=== PATIENT | female | born 1960 | race Caucasian/White ===

== ENCOUNTER 2021-05-23 17:52 | Emergency (ER) | payer OTHER, SELFPAY ==
[2021-05-23 18:02] VITALS: BP 128/84; PULSE 102; RESP 16; TEMP 36.3; O2SAT 98
[2021-05-23 18:20] VITALS: BP 128/84; PULSE 102; RESP 16; TEMP 36.3; O2SAT 98
--- NOTE | 2021-05-23 18:47 | ED.GENADULT ---
HPI - General Adult General Chief complaint: Skin/Abscess/Foreign Body Stated complaint: rash Time Seen by Provider: 05/23/21 18:35 Source: patient Mode of arrival: ambulatory Limitations: no limitations History of Present Illness HPI narrative: Sultana Vincent is a 61-year-old female who comes to [facility] wanting some kind of help with pain management she can see her PCP substituted 10 days. Her current PCP apparently is Jane is transferring patients to substitute PCP but she has not had the blood work done for diagnosis of rheumatoid arthritis. She needs to find a assistant dean of students that will take her insurance and the projection was it would be as long as September 12 she could get into see a assistant dean of students for further evaluation. She is requesting medicine but it is unclear to me whether or not she has taken this drug at this point and where she is in the work-up Related Data Allergies Allergy/AdvReac Type Severity Reaction Status Date / Time No Known Allergies Allergy Verified 12/19/18 11:04 Review of Systems Review of Systems: CONSTITUTIONAL: Denies fever, chills, sweats. EYES: Denies visual changes, redness, discharge. ENT: Denies rhinorrhea, congestion, sore throat, otalgia. CARDIOVASCULAR: Denies chest pain, palpitations, edema. RESPIRATORY: Denies dyspnea, wheezing, cough GASTROINTESTINAL: Denies abdominal pain, nausea, vomiting, diarrhea. GENITOURINARY: Denies dysuria, hematuria, abnormal discharge SKIN: Denies rash or itching. NEUROLOGIC: Denies numbness, or focal weakness. PSYCHIATRIC: Denies anxiety or depression. Hand and knee pain from rheumatoid arthritis PMFSH Past Medical History Medical History Rheumatoid arthritis Social History Social History (Updated 05/23/21 @ 18:50 by Jessi Valencia CNP) Smoking status: Never smoker Substance use: never Comments At time of signature, I agree with nursing past medical, surgical, social and family history. There is no relevant family history pertinent to the presenting complaint. Exam Narrative: GENERAL: This is a well-nourished, well-developed patient, in mild distress. Anxious, in pain daily from rheumatoid arthritis HEAD: normocephalic, atraumatic. EYES: Sclera clear/white. Vision is grossly intact. EARS: External ears normal, auditory canals clear and without drainage, TMs normal without perforation. Hearing grossly intact. NOSE: External nose normal without nasal discharge, nares without redness, no rhinorrhea. THROAT: Mucous membranes moist, NECK: Neck supple, non-tender CARDIOVASCULAR: Tachycardic rate and rhythm without murmurs, gallops, or rubs. RESPIRATORY: Clear to auscultation. Breath sounds equal bilaterally. No wheezes, rales, or rhonchi. GASTROINTESTINAL: Abdomen soft, SKIN: warm, intact with no suspicious lesions or rash, good texture and turgor. NEURO: awake, alert, and oriented to person, place and time. There were no obvious focal neurologic abnormalities. Steady gait EXTREMITIES: Normal range of motion. BACK: Nontender without deformity Course Course Emergency Course: Patient is here due to pain in joints, requesting medicine for pain -wanted minocycline but she has not seen a assistant dean of students and after looking at prescribing information and the fact that she has an appointment in 10 days get decided to give tramadol instead I will let her primary care physician substitute decided on the minocycline Prescribed tramadol until see his primary in 10 days Vital Signs Vital signs: Vital Signs Temperature 97.4 F L 05/23/21 18:02 Pulse Rate 102 H 05/23/21 18:02 Respiratory Rate 16 05/23/21 18:02 Blood Pressure 128/84 05/23/21 18:02 Pulse Oximetry 98 05/23/21 18:02 Temperature 97.4 F L 05/23/21 18:20 Pulse Rate 102 H 05/23/21 18:20 Respiratory Rate 16 05/23/21 18:20 Blood Pressure 128/84 05/23/21 18:20 Pulse Oximetry 98 05/23/21 18:20 Medi
== END 2021-05-23 19:00 | disposition home or self-care (01) ==
PROVIDERS: Emergency Provider Nurse Practitioner; PCP Family Medicine
DX: M05.741 Rheumatoid arthritis with rheumatoid factor of right hand without organ or systems involvement (principal); M05.742 Rheumatoid arthritis with rheumatoid factor of left hand without organ or systems involvement
CPT/HCPCS: 99213; G0463

== ENCOUNTER 2022-06-03 18:04 | Emergency (ER) | payer OTHER, SELFPAY ==
[2022-06-03 18:14] VITALS: BP 138/85; PULSE 88; RESP 18; TEMP 36.4; O2SAT 99
--- NOTE | 2022-06-03 18:36 | ED.URI ---
HPI - URI/Sore Throat General Chief Complaint: Upper Respiratory Infection Stated Complaint: nasal congestion Time Seen by Provider: 06/03/22 18:26 Source: patient Mode of arrival: ambulatory Limitations: no limitations History of Present Illness HPI Narrative: Patient presents today complaining of nasal congestion throughout the entire summer with frontal and maxillary sinus pressure for the past 10 days and left ear pain x1 week. Denies cough, fever, sore throat, or any additional symptoms she has been using [place], Flonase, Tylenol, naproxen, and a humidifier without much relief. History of rheumatoid arthritis for which she takes methotrexate. Related Data Allergies Allergy/AdvReac Type Severity Reaction Status Date / Time No Known Allergies Allergy Verified 06/03/22 18:08 Review of Systems Review of Systems: CONSTITUTIONAL: Denies body aches, fever, chills, or sweats. EYES: Denies visual changes, redness, or discharge. ENT: Denies rhinorrhea, sore throat+ Congestion, left ear pain, sinus pressure CARDIOVASCULAR: Denies chest pain, palpitations, or edema. RESPIRATORY: Denies cough or dyspnea. GASTROINTESTINAL: Denies abdominal pain, nausea, vomiting, or diarrhea. GENITOURINARY: Denies dysuria or hematuria. SKIN: Denies rash, itching, or wounds. MUSCULOSKELETAL: Denies back pain, joint pain, or myalgia. NEUROLOGIC: Denies headache, numbness, tingling, or weakness. PSYCH: Denies depression or anxiety. PMFSH Past Medical History Medical History Rheumatoid arthritis Social History Social History (Updated 05/23/21 @ 18:50 by Jessi Valencia CNP) Smoking status: Never smoker Substance use: never Comments At time of signature, I have reviewed and agree with nursing past medical, surgical, social and family history unless otherwise noted. Please see nursing chart for further information. There is no relevant family history pertinent to the presenting complaint Exam Narrative: GENERAL: Well-appearing, well-nourished, and in no acute distress. HEAD: Normocephalic, atraumatic. EYES: EOMI. No redness or drainage. Conjunctivae normal. ENT: Mucous membranes pink and moist. Nares congested. Lateral nasal turbinates are erythematous and edematous with purulent discharge. Bilateral frontal and maxillary sinus tenderness. TMs normal bilaterally. Throat normal. Uvula midline. NECK: Normal AROM. Supple. No lymphadenopathy. CHEST: No respiratory distress. Clear to auscultation. HEART: Regular rate and rhythm. No murmur appreciated. Normal peripheral pulses. EXTREMITIES: Normal range of motion. No edema. SKIN: Warm, dry, no rash. Capillary refill normal. Normal skin turgor. NEURO: No focal deficits. Alert and oriented x3. Gait steady. PSYCH: Normal affect. No signs of depression or anxiety. Course Course Level of Care: Express Care Visit Vital Signs Vital signs: Vital Signs Temperature 97.6 F 06/03/22 18:14 Pulse Rate 88 06/03/22 18:14 Respiratory Rate 18 06/03/22 18:14 Blood Pressure 138/85 06/03/22 18:14 Pulse Oximetry 99 06/03/22 18:14 Oxygen Delivery Room Air 06/03/22 18:14 Temperature 97.6 F 06/03/22 18:14 Pulse Rate 88 06/03/22 18:14 Respiratory Rate 18 06/03/22 18:14 Blood Pressure 138/85 06/03/22 18:14 Pulse Oximetry 99 06/03/22 18:14 Oxygen Delivery Room Air 06/03/22 18:14 Reviewed. Pt has been instructed to follow up with her PCP regarding her elevated blood pressure today. MDM - URI/Sore Throat Differential Diagnosis Differential diagnosis: Likely upper respiratory infection, otitis media, sinusitis, viral infection and other (Seasonal allergies) Critical Care Time Critical Care Time Critical Care Time: No Discharge Plan Discharge Clinical Impression: Acute bacterial sinusitis Patient Disposition: Home, Self-Care Condition: Stable Instructions: Antibiotic Form, Sinusiti
== END 2022-06-03 18:38 | disposition home or self-care (01) ==
PROVIDERS: Emergency Provider Nurse Practitioner; PCP Family Medicine
DX: J01.90 Acute sinusitis, unspecified (principal); M06.9 Rheumatoid arthritis, unspecified
CPT/HCPCS: 99213; G0463

== ENCOUNTER 2023-02-17 19:17 | Emergency (ER) | payer OTHER, SELFPAY ==
[2023-02-17 19:26] VITALS: BP 128/69; PULSE 102; RESP 18; TEMP 36.4; O2SAT 100
--- NOTE | 2023-02-17 19:55 | ED.FEMALEGU ---
HPI - Female Genitourinary General Chief complaint: Urogenital-Female Stated complaint: Possible UTI Time Seen by Provider: 02/17/23 19:50 Source: patient, RN notes reviewed and old records reviewed Mode of arrival: ambulatory Limitations: no limitations History of Present Illness HPI Narrative: 62-year-old female who presents to with complaints of 2 day history of urinary symptoms which include urgency, burning with urination and also some pink-tinged urine noted when wiping, and has had some incontinency. Patient reports no fevers, chills or sweats, denies any abdominal pain,nausea or vomiting or any diarrhea. Patient reports no vaginal discharge or itching denies any concern for STD exposure. MD elicited complaint: UTI Onset (ago): day(s) (2) Related Data Home Medications Medication Instructions Recorded Confirmed naproxen 500 mg tablet 500 mg PO BID 02/17/23 02/17/23 Allergies Allergy/AdvReac Type Severity Reaction Status Date / Time No Known Allergies Allergy Verified 02/17/23 19:41 Review of Systems Review of Systems: CONSTITUTIONAL: Denies fever, chills, or sweats. CARDIOVASCULAR: Denies chest pain, palpitations, or edema. RESPIRATORY: Denies cough or dyspnea. GASTROINTESTINAL: Denies abdominal pain, nausea, vomiting, or diarrhea. GENITOURINARY: Reports dysuria, frequency, urgency, incontinency. Denies flank pain, positive hematuria. SKIN: Denies rash or itching. MUSCULOSKELETAL: Denies back pain, positive for myalgia has rheumatoid arthritis. Denies CVA tenderness NEUROLOGIC: Denies headache All systems reviewed & are unremarkable except as noted in HPI and below PMFSH Past Medical History Medical History (Updated 02/19/23 @ 08:23 by Erin Obrien NP) Kidney stones Rheumatoid arthritis Surgical History Surgical History (Updated 02/19/23 @ 08:10 by Erin Obrien NP) H/O tubal ligation History of tonsillectomy Social History Social History (Updated 02/19/23 @ 08:13 by Erin Obrien NP) Smoking status: Former smoker Additional smoking assessment comments: quit 3 years ago Substance use: never Living arrangements: with family Gender identity (if verbalized by the patient): Female Comments At time of signature, agree with nursing past medical, surgical, social and family history. There is no relevant family history pertinent to the presenting complaint Exam Narrative: GENERAL: Well-appearing, well-nourished, and in no acute distress. HEAD: Normocephalic, atraumatic. NECK: Supple. CHEST: Clear to auscultation. No respiratory distress.SAO2 100% on room air HEART: Regular rate and rhythm. No murmur heard. Normal peripheral pulses. ABDOMEN: Soft, nontender, nondistended, normal active bowel sounds. No CVA tenderness,positive for dysuria urgency and episodes of incontinency,noted some blood when wiped. EXTREMITIES: Normal range of motion. No edema. SKIN: Warm, dry, no rash. NEURO: No focal deficits. Alert and oriented x3. Course Course Emergency Course: Patient is aware of diagnosis, understands and agrees to treatment plan.? Anticipatory guidance given.? Patient agrees to follow-up as directed and is aware of reasons to seek care at the emergency department. Portions of this record may have been created with voice recognition software Level of Care: Express Care Visit Vital Signs Vital signs: Vital Signs Oxygen Delivery Room Air 02/17/23 19:25 Temperature 36.4 C L 02/17/23 19:26 Pulse Rate 102 H 02/17/23 19:26 Respiratory Rate 18 02/17/23 19:26 Blood Pressure 128/69 02/17/23 19:26 Pulse Oximetry 100 02/17/23 19:26 Oxygen Delivery Room Air 02/17/23 19:26 MDM - Female Genitourinary MDM Narrative Medical decision making narrative: Exam findings and UA show no acute concerns or changes; patient is non-toxic appearing and is in no distress.? Patient is appropriate for outpatient treatment and follow-up. Differential Diag
== END 2023-02-17 20:15 | disposition home or self-care (01) ==
PROVIDERS: Emergency Provider Registered Nurse
DX: N39.0 Urinary tract infection, site not specified (principal); Z87.891 Personal history of nicotine dependence; M06.9 Rheumatoid arthritis, unspecified
CPT/HCPCS: 81003; 87086; 99213; G0463

== ENCOUNTER 2023-03-04 14:28 | Emergency (ER) | payer OTHER, SELFPAY ==
[2023-03-04 14:38] VITALS: BP 130/68; PULSE 80; RESP 16; TEMP 36.3; O2SAT 100
--- NOTE | 2023-03-04 14:58 | ED.FEMALEGU ---
HPI - Female Genitourinary General Chief complaint: Urogenital-Female Stated complaint: possible uti Time Seen by Provider: 03/04/23 14:49 Source: patient and RN notes reviewed Mode of arrival: ambulatory Limitations: no limitations History of Present Illness HPI Narrative: Patient presents today with a one-week history of urinary urgency, ?warm? feeling with voiding, and yellow vaginal discharge. She was seen on 02/17/2023 for same symptoms and placed on a prescription for Macrobid. Her subsequent urine culture came back negative, weight but patient states she continues to have symptoms. She has not tried any additional medications for her symptoms. Denies abdominal pain, back pain, fever, nausea vomiting, hematuria. States she is not currently sexually active. Related Data Home Medications Medication Instructions Recorded Confirmed naproxen 500 mg tablet 500 mg PO BID 02/17/23 03/04/23 Allergies Allergy/AdvReac Type Severity Reaction Status Date / Time No Known Allergies Allergy Verified 03/04/23 14:44 Review of Systems Review of Systems: CONSTITUTIONAL: Denies body aches, fever, chills, or sweats. EYES: Denies visual changes, redness, or discharge. ENT: Denies rhinorrhea, congestion, sore throat, or otalgia. CARDIOVASCULAR: Denies chest pain, palpitations, or edema. RESPIRATORY: Denies cough or dyspnea. GASTROINTESTINAL: Denies abdominal pain, nausea, vomiting, or diarrhea. GENITOURINARY: Denies dysuria or hematuria.+ urgency, vaginal discharge SKIN: Denies rash, itching, or wounds. MUSCULOSKELETAL: Denies back pain, joint pain, or myalgia. NEUROLOGIC: Denies headache, numbness, tingling, or weakness. PSYCH: Denies depression or anxiety. [facility] Past Medical History Medical History Kidney stones Rheumatoid arthritis Surgical History Surgical History H/O tubal ligation History of tonsillectomy Social History Social History Smoking status: Former smoker Additional smoking assessment comments: quit 3 years ago Substance use: never Living arrangements: with family Gender identity (if verbalized by the patient): Female Comments At time of signature, I have reviewed and agree with nursing past medical, surgical, social and family history unless otherwise noted. Please see nursing chart for further information. There is no relevant family history pertinent to the presenting complaint Exam Narrative: GENERAL: Well-appearing, well-nourished, and in no acute distress. HEAD: Normocephalic, atraumatic. EYES: EOMI. No redness or drainage. Conjunctivae normal. ENT: Mucous membranes pink and moist. NECK: Normal AROM. CHEST: No respiratory distress. : deferred MUSCULOSKELETAL: No bony tenderness. EXTREMITIES: Normal range of motion. No edema. SKIN: Warm, dry, no rash. Capillary refill normal. Normal skin turgor. NEURO: No focal deficits. Alert and oriented x3. Gait steady. PSYCH: Normal affect. No signs of depression or anxiety. Course Course Level of Care: Express Care Visit Vital Signs Vital signs: Vital Signs Temperature 97.4 F L 03/04/23 14:38 Pulse Rate 80 03/04/23 14:38 Respiratory Rate 16 03/04/23 14:38 Blood Pressure 130/68 03/04/23 14:38 Pulse Oximetry 100 03/04/23 14:38 Oxygen Delivery Room Air 03/04/23 14:38 Temperature 97.4 F L 03/04/23 14:38 Pulse Rate 80 03/04/23 14:38 Respiratory Rate 16 03/04/23 14:38 Blood Pressure 130/68 03/04/23 14:38 Pulse Oximetry 100 03/04/23 14:38 Oxygen Delivery Room Air 03/04/23 14:38 Reviewed. Pt has been instructed to follow up with her PCP regarding her elevated blood pressure today. MDM - Female Genitourinary MDM Narrative Medical decision making narrative: UA grossly negative. Culture pendin
== END 2023-03-04 15:09 | disposition home or self-care (01) ==
PROVIDERS: Emergency Provider Nurse Practitioner
DX: N89.8 Other specified noninflammatory disorders of vagina (principal); M06.9 Rheumatoid arthritis, unspecified; Z87.891 Personal history of nicotine dependence
CPT/HCPCS: 81003; 87086; 87088; 99213; G0463

== ENCOUNTER 2023-10-11 15:25 | Emergency (ER) | payer MEDICARE, MEDICAID, SELFPAY ==
[2023-10-11 16:23] VITALS: BP 134/81; PULSE 77; RESP 18; TEMP 36.4; O2SAT 99
--- NOTE | 2023-10-11 16:56 | ED.FEMALEGU ---
HPI - Female Genitourinary General Chief complaint: Urogenital-Female Stated complaint: uti symptoms Time Seen by Provider: 10/11/23 16:56 Source: patient, RN notes reviewed and old records reviewed Mode of arrival: ambulatory Limitations: no limitations History of Present Illness HPI Narrative: 63-year-old female with a history of RA presents with urinary frequency, urgency, burning, hesitancy, retention. Also reports different low back pain than her normal arthritis Has taken azo been drinking cranberry juice with no relief Symptoms x3 days Denies any nausea or vomiting. Denies any abdominal pain or chest pain. Denies fevers Related Data Home Medications Medication Instructions Recorded Confirmed naproxen 500 mg tablet 500 mg PO BID 02/17/23 10/11/23 Allergies Allergy/AdvReac Type Severity Reaction Status Date / Time No Known Allergies Allergy Verified 10/11/23 16:39 Review of Systems Review of Systems: All systems reviewed & are unremarkable except as noted in HPI and below Constitutional: Constitutional: Reports no additional constitutional complaints Eyes: Eyes: Reports no additional eye complaints ENT: Reports system reviewed and no additional complaints, except as documented Cardiovascular: Cardiovascular: Reports no additional cardiovascular complaints, Denies chest pain and Denies dyspnea Respiratory: Respiratory: Reports no additional respiratory complaints, Denies chest congestion, Denies cough and Denies dyspnea Gastrointestinal: Gastrointestinal: Reports no additional gastrointestinal complaints, Denies abdominal pain, Denies nausea and Denies vomiting Genitourinary: Genitourinary: Reports as per HPI Musculoskeletal: Musculoskeletal: Reports no additional musculoskeletal complaints Integumentary/Breasts: Skin/Breast: Reports system reviewed and no additional complaints, except as docu Neurologic: Reports system reviewed and no additional complaints, except as documented Psychiatric: Psychiatric: Reports no additional psychiatric complaints Allergic/Immunologic: Allergic/Immunologic: Reports no additional allergic/immunologic complaints [facility] Past Medical History Medical History Kidney stones Rheumatoid arthritis Surgical History Surgical History H/O tubal ligation History of tonsillectomy Social History Social History Smoking status: Former smoker Additional smoking assessment comments: quit 3 years ago Substance use: never Living arrangements: with family Gender identity (if verbalized by the patient): Female Comments At the time of my signature, I reviewed and agree with the nursing past medical, surgical, social, and family history. There is no relevant family history pertinent to the patient complaint. Exam Const: General: cooperative, healthy appearing, comfortable, no acute distress, well developed, alert and well nourished Nutritional Appearance: well nourished Orientation/consciousness: patient oriented x3 Limitations: no limitations HENMT: Head: normal to inspection Ears: hearing grossly normal bilaterally and external ears normal Face/Nose/Sinus: Normal external nose present, Normal nares present, Normal nasal mucous membranes and turbinates present, normal facial exam and face symmetric Face and sinus: normal facial exam and face symmetric Eyes: General: appearance normal, both eyes and all related structures Alignment and Position: alignment normal Periorbital: periorbital findings normal Pupils: Equal, round and reactive pupils present EOM: EOMs intact bilaterally Neck: Neck: normal visual inspection, full ROM, no lymphadenopathy and no meningeal signs Chest: Chest palpation & inspection: normal inspection of the chest Resp: Effort & Inspection: normal respiratory effort and able to spe
== END 2023-10-11 17:06 | disposition home or self-care (01) ==
PROVIDERS: Emergency Provider Nurse Practitioner
DX: N39.0 Urinary tract infection, site not specified (principal); Z79.1 Long term (current) use of non-steroidal anti-inflammatories (NSAID); Z87.891 Personal history of nicotine dependence
CPT/HCPCS: 81003; 87086; 87088; 99213; G0463

== ENCOUNTER 2024-05-30 12:29 | Emergency (ER) | payer MEDICARE, SELFPAY ==
--- NOTE | 2024-05-30 12:31 | ED.FEMALEGU ---
HPI - Female Genitourinary General Chief complaint: Urogenital-Female Stated complaint: uti symptoms Time Seen by Provider: 05/30/24 12:31 Source: patient Mode of arrival: ambulatory Limitations: no limitations History of Present Illness HPI Narrative: Sultana is a 64-year-old female patient presenting to the clinic today with complaints of possible UTI. She reports she is having burning, urinary frequency, low urine output, and malodorous urine. States that this has been going on for the past 2-3 days. No known fever, chills, body aches, back pain, or lower abdominal pain. She denies any vaginal discharge. Related Data Home Medications Medication Instructions Recorded Confirmed naproxen 500 mg tablet 500 mg PO BID 02/17/23 05/30/24 Allergies Allergy/AdvReac Type Severity Reaction Status Date / Time No Known Allergies Allergy Verified 05/30/24 12:46 Review of Systems Review of Systems: Pertinent positives per HPI. Patient denies any fever, chills, rash, headache, visual changes, dizziness, cough, runny nose, sore throat, shortness of breath, chest pain, palpitations, nausea, vomiting, diarrhea, constipation, abdominal pain, or any urinary issues. PMFSH Past Medical History Medical History Kidney stones Rheumatoid arthritis Surgical History Surgical History H/O tubal ligation History of tonsillectomy Social History Social History Smoking status: Former smoker Additional smoking assessment comments: quit 3 years ago Substance use: never Living arrangements: with family Gender identity (if verbalized by the patient): Female Comments At the time of my signature, I reviewed and agree with the nursing past medical, surgical, social, and family history. There is no relevant family history pertinent to the patient complaint. Exam Narrative: General: Well-developed, well nourished, in no apparent distress. Head: Normocephalic, atraumatic. Cardio: Regular rate and rhythm, s1 and s2 normal, no murmur appreciated. Resp: Clear to auscultation bilaterally, no rhonchi, rales, wheezing or rubs. Abdomen: Soft, pliable, bowel sounds present in all quadrants, non-tender to palpation, no organomegly, no CVAT tenderness. Course Course Emergency Course: Portions of this record may have been created with voice recognition software. Level of Care: Express Care Visit Vital Signs Vital signs: Vital Signs Temperature 36.1 C L 05/30/24 12:42 Pulse Rate 80 05/30/24 12:42 Respiratory Rate 16 05/30/24 12:42 Blood Pressure 138/80 05/30/24 12:42 Pulse Oximetry 99 05/30/24 12:42 Oxygen Delivery Room Air 05/30/24 12:42 Temperature 36.1 C L 05/30/24 12:42 Pulse Rate 80 05/30/24 12:42 Respiratory Rate 16 05/30/24 12:42 Blood Pressure 138/80 05/30/24 12:42 Pulse Oximetry 99 05/30/24 12:42 Oxygen Delivery Room Air 05/30/24 12:42 Vital signs reviewed MDM - Female Genitourinary MDM Narrative Medical decision making narrative: At the time of visit patient is resting comfortably on the exam table. Patient appears to be nontoxic. Labs: UA positive for trace of leukocytes. We will send for culture. Plan: I reviewed patient's old urine cultures and they have all been no growth. I suspect that the trace of leukocytes may be a contaminant but I will go ahead and place patient on Macrobid and time being and wait for urine culture. Supportive measures were discussed with the patient and they voiced understanding discharge instructions and agrees to treatment plan. Return precautions reviewed Differential Diagnosis Differential diagnosis: Likely urinary tract infection and cystitis Lab Data Labs: Lab Results 05/30/24 Range/Units 12:48 POC Urine Color Yellow POC Urine Clarity
[2024-05-30 12:42] VITALS: BP 138/80; PULSE 80; RESP 16; TEMP 36.1; O2SAT 99
[2024-05-30 12:51] LABS: EDUAAPPEAR Clear; EDUABILI Negative; EDUABLOOD Negative; EDUACOLOR1 Yellow; EDUAGLUCOSE Negative; EDUAKETONE Negative; EDUALEUKO Trace; EDUANITRATE Negative; EDUAPROTEIN Negative; EDUAUROBILI 0.2
== END 2024-05-30 13:00 | disposition home or self-care (01) ==
PROVIDERS: Emergency Provider Nurse Practitioner Family
DX: N30.00 Acute cystitis without hematuria (principal); Z87.891 Personal history of nicotine dependence; M06.9 Rheumatoid arthritis, unspecified
CPT/HCPCS: 81003; 87086; 99213; G0463

== ENCOUNTER 2024-10-09 10:16 | Emergency (ER) | payer MEDICARE, SELFPAY ==
[2024-10-09 10:27] VITALS: BP 138/81; PULSE 97; RESP 18; TEMP 36.3; O2SAT 96
--- NOTE | 2024-10-09 10:40 | ED_ITS ---
HPI - URI/Sore Throat General Chief Complaint: Upper Respiratory Infection Stated Complaint: headache and sinus drainage Time Seen by Provider: 10/09/24 10:40 Source: patient, RN notes reviewed and old records reviewed Mode of arrival: ambulatory Limitations: no limitations History of Present Illness HPI Narrative: 64-year-old female presents to the [facility] with complaints of headache and sinus drainage that started about 10 days ago. Patient states that it started as a headache, proceeded to nasal congestion, postnasal drainage and a cough. Has been using a vaporizer. No other treatment prior to arrival. Onset (ago): day(s) () Related Data Home Medications ?Medication ?Instructions ?Recorded ?Confirmed ?Last Taken ?Type naproxen 500 mg tablet 500 mg PO BID 02/17/23 10/09/24 Unknown History Allergies Allergy/AdvReac Type Severity Reaction Status Date / Time No Known Allergies Allergy Verified 10/09/24 10:49 Review of Systems Review of Systems: All systems reviewed & are unremarkable except as noted in HPI and below Constitutional: Constitutional: Reports no additional constitutional complaints ENT: Reports as per HPI, Reports nasal discharge, Reports post nasal drip and Reports sinus pressure Cardiovascular: Cardiovascular: Reports no additional cardiovascular complaints, Denies chest pain and Denies dyspnea Respiratory: Respiratory: Reports as per HPI, Denies chest congestion, Reports cough and Denies dyspnea Musculoskeletal: Musculoskeletal: Reports no additional musculoskeletal complaints Integumentary/Breasts: Skin/Breast: Reports system reviewed and no additional complaints, except as docu PMFSH Past Medical History Medical History Kidney stones Rheumatoid arthritis Surgical History Surgical History History of tonsillectomy H/O tubal ligation Social History Social History Smoking status: Former smoker Additional smoking assessment comments: quit 3 years ago Substance use: never Living arrangements: with family Gender identity (if verbalized by the patient): Female Comments At the time of my signature, I reviewed and agree with the nursing past medical, surgical, social, and family history. There is no relevant family history pertinent to the patient complaint. Exam Const: General: cooperative, healthy appearing, comfortable, no acute distress, well developed, alert and well nourished Nutritional Appearance: well nourished Orientation/consciousness: patient oriented x3 Limitations: no limitations HENMT: Head: normal to inspection Ears: hearing grossly normal bilaterally, external ears normal, TM's normal bilaterally, EAC's normal, mastoids normal and no periauricular adenopathy Face/Nose/Sinus: Normal external nose present, Normal nasal mucous membranes and turbinates present and Nasal discharge present clear bilateral Mouth: Yes Normal oral and palatal mucosa present, Yes lip normal, Yes tongue normal and Yes moist mucous membranes Throat: posterior oropharynx normal, uvula midline, postnasal drainage, tonsils absent and no uvular edema Eyes: General: appearance normal, both eyes and all related structures Alignment and Position: alignment normal Neck: Neck: normal visual inspection, full ROM, no lymphadenopathy and no meningeal signs Chest: Chest palpation & inspection: normal inspection of the chest Resp: Effort & Inspection: normal respiratory effort and able to speak in complete sentences Auscultation: clear to auscultation bilaterally, no crackles, no rales, no rhonchi and no wheezes Cardio: Rate: regular rate Skin: General skin exam: normal color and no rashes or lesions noted Neuro: General: patient oriented x3, gait normal, moves all extremities and no meningeal signs Cognition (Neuro): normal cognition Speech: normal speech Gait exam (Neuro): Normal gait present Extrem: General: normal to inspection, full ROM, capillary refill normal and normal gait Psych: Appearance: grossly normal and well kempt Mental Status: mental status grossly normal Speech and movement: Normal speech and movement present and Clear speech present Affect: normal affect Attitude: cooperative Course Course Level of Care: Express Care Visit Vital Signs Vital signs: Vital Signs Temperature 97.3 F L 10/09/24 10:27 Pulse Rate 97 10/09/24 10:27 Respiratory Rate 18 10/09/24 10:27 Blood Pressure 138/81 10/09/24 10:27 Pulse Oximetry 96 10/09/24 10:27 Oxygen Delivery Room Air 10/09/24 10:27 Temperature 97.3 F L 10/09/24 10:27 Pulse Rate 97 10/09/24 10:27 Respiratory Rate 18 10/09/24 10:27 Blood Pressure 138/81 10/09/24 10:27 Pulse Oximetry 96 10/09/24 10:27 Oxygen Delivery Room Air 10/09/24 10:27 Reviewed MDM - URI/Sore Throat MDM Narrative Medical decision making narrative: Patient sitting comfortably in exam room. Nontoxic, vitals stable patient presents with approximately a 10 day history of sinus pain, pressure, headache and a cough. Patient due to length of symptoms will treat with antibiotic, discussed with patient that this is most likely viral, also discussed and strongly encouraged [id number] products which she verbalized understanding. Discharge instructions reviewed with patient, as well as provided in writing per nursing staff. The instructions also include specific and strict return/GO TO THE ER as well as f/u information. All questions have been answered, and the patient deny any further questions with discharge and discharge plan. Some parts of this dictation were generated by voice recognition software and may contain typographical and/or grammatical inaccuracies. Differential Diagnosis Differential diagnosis: Likely upper respiratory infection, otitis media, sinusitis and viral infection Critical Care Time Critical Care Time Critical Care Time: No Discharge Plan Discharge Clinical Impression: PND (post-nasal drip) Sinusitis Qualifiers: Sinusitis location: unspecified location Chronicity: acute Recurrence: not specified as recurrent Qualified Code(s): J01.90 - Acute sinusitis, unspecified Patient Disposition: Home, Self-Care Condition: Stable Instructions: Antibiotic Form, Sinusitis (ED), Postnasal Drip (DC) Additional Instructions: Due to the length of you are being treated with an antibiotic. This is most likely a viral illness, Typically viral infections last 7-10 days, can linger for couple of weeks. It is very important to treat your symptoms. Drink plenty of water, Gatorade, Pedialyte, ice pops or Jell-O. -Alternate Tylenol and Motrin per package directions for fever or pain. You can alternate every 4 hours -Antihistamine medication such as Zyrtec/Claritin/Kimmy during the day can help improve symptoms. -doing daily nasal irrigations can help relieve pressure your sinuses. Things like a Neti pot -Use Flonase twice a day for 5 days then daily to help reduce the inflammation and dry up your sinuses. -You can also use Mucinex. Be sure to drink plenty of water with this medication at least 8 ounces with every dose and it is important to drink 8 to 10 glasses of water per day. Water is a natural decongestant -Eat and drink things that are easy to swallow, like tea or soup, or popsicles. -Oral rinses such as: Salt water gargles and/or may use topical anesthetic (eg. Chloraseptic spray) or lozenges to relieve dryness or throat pain). -Frequent hand washing or hand trimmer machine is one of the best ways to prevent spread of infection. -Using a vaporizer or humidifier at night will also help thin secretions and help with coughing up phlegm. -Follow up with primary care provider in 7-10 days if condition is not improving - For new or worsening symptoms go directly to the nearest ER Patient Language: Togolese Prescriptions: New doxycycline monohydrate 100 mg tablet 100 mg PO BID Qty: 14 0RF No Action naproxen 500 mg tablet 500 mg PO BID nitrofurantoin monohyd/m-cryst [Macrobid] 100 mg capsule 100 mg PO Q12H 5 Days Qty: 10 0RF Rx Instructions: must administer with a meal/food Follow-up/Referrals: PHYSICIAN,LATHE OPERATOR CONTACT LENS [Primary Care Provider] - Time of Disposition: 10:52
--- OUTSIDE RECORDS SUMMARY | 2024-10-16 22:29 | XMS_ITS | Encounter Summary ---
Author Organization [facility] Address [address] [place] [address] Care Team Providers Care Business Support Specialist Name Role Phone Sultana Sullivan MD Primary Care Provider [phone] Reason for Visit * Oncology Prior Authorization (Routine) - Authorized Specialty Diagnoses / Procedures Referred By Contac t Referred To Contact Diagnoses Rheumatoid arthritis involving multiple sites with positive rheumatoid factor (HCC) Antonio Bowles MD [address] [facility] [address] [facility] [address] [place] [id number] Referral ID Status Reason Start Date Expiration Date V isits Requested Visits Authorized [id number] Authorized 07/19/2024 07/19/2025 1 1 Encounter Details Date Type Department Care Team (Latest Contact Info) Description 07/30/2024 9:00 AM CDT - 07/30/2024 11:59 PM CDT Hospital Encounter [facility] [address] [place] [phone] Sultana Sullivan MD [address] [place] [phone] Discharge Disposition: Home or Self Care Social History Tobacco Use Types Packs/Day Years Used Date Smoking Tobacco: Former Cigarettes 0.5 20 0 03/10/2001 - 03/10/2021 Smokeless Tobacco: Never Alcohol Use Standard Drinks/Week Comments Never 0 (1 standard drink = 0.6 oz pur e alcohol) PHQ-2 Answer Date Recorded Patient Health Questionnaire-2 Score 0 01/18/2024 Sex and Gender Information Value Date Recorded Sex Assigned at Not on file Gender Identity Not on file Sexual Orientation Not on file documented as of this encounter Last Filed Vital Signs Vital Sign Reading Time Taken Comments Blood Pressure 150/88 07/30/2024 9:14 AM CDT Pulse 88 07/30/2024 9:14 AM CDT Temperature 36.3 ??C (97.4 ??F) 07/30/2024 9:14 AM CD T Respiratory Rate 20 07/30/2024 9:14 AM CDT Oxygen Saturation 99% 07/30/2024 9:14 AM CDT Inhaled Oxygen Concentration - - Weight 58.9 kg (129 lb 12.8 oz) 07/30/2024 9:14 AM CDT Height - - Body Mass Index 25.35 06/20/2024 11:00 AM CDT documented in this encounter Medications at Time of Discharge Medication Sig Dispensed Refills Start Date End Date naproxen (Naprosyn) 500 MG tabletIndications:Rheumat oid arthritis, involving unspecified site, unspecified whether rheumatoid factor present (HCC) Take 1 (one) tablet by mouth 2 times daily 180 tablet 07/06/2024 documented as of this encounter Plan of Treatment Upcoming Encounters Date Type Department Care Team (Late st Contact Info) Description 10/31/2024 10:00 AM 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 Office Visit [facility] - Rheumatology [address] [place] [address] [place] [phone] Antonio Bowles MD [address] [place] [address] [place] [phone] 02/01/2025 9:00 AM CDT Appointment [facility] [address] [place] [phone] Sultana Sullivan MD [address] [place] [phone] documented as of this encounter Procedures Procedure Name Priority Date/Time Associated Diagnosis Comments C-REACTIVE PROTEIN Routine 07/30/2024 9: 30 AM CDT Rheumatoid arthritis, involving unspecified site, unspecified whether rheumatoid factor present (HCC) 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 Long-term use 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 termite exterminator 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 Arthralgia, unspecified joint High risk medications (not anticoagulants) long-term use ERYTHROCYTE SEDIMENTATION RATE Routine 07/30/2024 9:30 AM CDT Rheumatoid arthritis, involving unspecified site, unspecified whether rheumatoid factor present (HCC) 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 Long-term use 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 termite exterminator 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 Arthralgia, unspecified joint High risk medications (not anticoagulants) long-term use CBC W AUTO DIFFERENTIAL Routine 07/30/2024 9:30 AM CDT Rheumatoid arthritis, involving unspecified site, unspecified whether rheumatoid factor present (HCC) 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 Long-term use 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 termite exterminator 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 Arthralgia, unspecified joint High risk medications (not anticoagulants) long-term use COMPREHENSIVE METABOLIC PANEL Routine 07/30/2024 9:30 AM CDT Rheumatoid arthritis, involving unspecified site, unspecified whether rheumatoid factor present (HCC) 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 Long-term use 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 termite exterminator 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 Arthralgia, unspecified joint High risk medications (not anticoagulants) long-term use IGM BLOOD Routine 07/30/2024 9:30 AM CDT Rheumatoid arthritis, involving unspecified site, unspecified whether rheumatoid factor present (HCC) 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 Long-term use 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 half-way 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 Arthralgia, unspecified joint High risk medications (not anticoagulants) long-term use IGG BLOOD Routine 07/30/2024 9:30 AM CDT Rheumatoid arthritis, involving unspecified site, unspecified whether rheumatoid factor present (HCC) 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 Long-term use 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 half-way 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 Arthralgia, unspecified joint High risk medications (not anticoagulants) long-term use IGA BLOOD Routine 07/30/2024 9:30 AM CDT Rheumatoid arthritis, involving unspecified site, unspecified whether rheumatoid factor present (HCC) 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 Long-term use 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 half-way 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 Arthralgia, unspecified joint High risk medications (not anticoagulants) long-term use documented in this encounter Results * (ABNORMAL) IGM BLOOD (07/30/2024 9:30 AM CDT) IgM 35(L) 37 - 286 mg/dL 07/30/2024 11:26 AM CDT [facility] Blood BLOOD SPECIMEN / Unknown Venipuncture / Unknown 07/30/2024 9:30 AM CDT 07/30/2024 10:32 AM CDT Catherine Hoffman MD LAB - CHEMISTR Y ORDERABLES [address] [address], [facility] [phone] * IGG BLOOD (07/30/2024 9:30 AM CDT) IgG 1,182 767 - 1,590 mg/dL 07/30/2024 11:26 AM CDT [facility] Blood BLOOD SPECIMEN / Unknown Venipuncture / Unknown 07/30/2024 9:30 AM CDT 07/30/2024 10:32 AM CDT Catherine Hoffman MD LAB - CHEMISTR Y ORDERABLES [address] [address], [facility] [phone] * IGA BLOOD (07/30/2024 9:30 AM CDT) IgA 250 61 - 356 mg/dL 07/30/2024 11:26 AM CDT [facility] Blood BLOOD SPECIMEN / Unknown Venipuncture / Unknown 07/30/2024 9:30 AM CDT 07/30/2024 10:32 AM CDT Catherine Hoffman MD LAB - CHEMISTR Y ORDERABLES Performing Organization Address City/[facility]/ZIP Co de Phone Number [address] [address], [facility] [phone] * (ABNORMAL) ERYTHROCYTE SEDIMENTATION RATE (07/30/2024 9:30 AM CDT) Erythrocyte Sedimentation Rate Westergren 48(H) 0 - 30 MM/HR 07/30/2024 10:17 AM CDT [facility] Blood BLOOD SPECIMEN / Unknown Venipuncture / Unknown 07/30/2024 9:30 AM CDT 07/30/2024 9:55 AM CDT Catherine Hoffman MD LAB - HEMATOLO GY ORDERABLES Performing Organization Address [facility]/ZIP Co de Phone Number [address] [address], [facility] [phone] * C-REACTIVE PROTEIN (07/30/2024 9:30 AM CDT) [facility] C-Reactive Protein <0.5 <=0.5 mg/dL 07/30/2024 10:28 AM CDT [facility] Blood BLOOD SPECIMEN / Unknown Venipuncture / Unknown 07/30/2024 9:30 AM CDT 07/30/2024 9:55 AM CDT Catherine Hoffman MD LAB - CHEMISTR Y ORDERABLES Performing Organization Address City/[facility]/ZIP Co de Phone Number [address] [address], [facility] [phone] * (ABNORMAL) COMPREHENSIVE METABOLIC PANEL (07/30/2024 9:30 AM CDT) BUN 15 7 - 26 mg/dL 07/30/2024 10:42 AM CDT [facility] Creatinine 0.75 0.56 - 0.96 mg/dL 07/30/2024 10:42 AM CDT [facility] Sodium 140 136 - 145 mmol/L 07/30[facility]24 [facility] Potassium 4.1 3.5 - 4.5 mmol/L 07/30/2024 10:42 AM [facility] Chloride 107 98 - 107 mmol/L 07/30/2024 10:42 AM [facility] CO2 24 22 - 29 mmol/L 07/30/2024 10:42 AM [facility] Glucose 90 70 - 115 mg/dL 07/30/2024 10:42 AM [facility] Calcium 9.4 8.4 - 10.2 mg/dL 07/30/2024 10:42 AM [facility] Protein Total 7.5 6.0 - 8.3 g/dL 07/30/2024 10:42 AM [facility] Albumin 4.0 3.4 - 5.0 g/dL 07/30/2024 10:42 AM [facility] Bilirubin Total 0.4 0.2 - 1.2 mg/dL 07/30/2024 10:42 AM [facility] Alkaline Phosphatase 97 40 - 150 U/L 07/30/2024 10:42 AM [facility] ALT 15 5 - 55 U/L 07/30/2024 10:42 AM [facility] AST 20 5 - 34 U/L 07/30/2024 10:42 AM [facility] Anion Gap 9 6 - 16 07/30/2024 10:42 AM [facility] BUN/Creatinine Ratio 20 7 - 23 07/30/2024 10:42 AM [facility] Osmolality Calculated 290 275 - 295 mOsm/kg 07/30/2024 10:42 AM [facility] Albumin/Globulin Ratio 1.1 1.1 - 2.3 07/30/2024 10:42 AM [facility] eGFR by CKD-EPI 88(L) >=90 mL/min/1.7 3 m2 07/30/2024 10:42 AM [facility] Blood BLOOD SPECIMEN / Unknown Venipuncture / Unknown 07/30/2024 9:30 AM CDT 07/30/2024 9:55 AM T Catherine Hoffman MD LAB - CHEMISTR Y ORDERABLES [facility] [address] [place] [address], [facility] [phone] * (ABNORMAL) CBC WITH DIFFERENTIAL (07/30/2024 9:30 AM CDT) WBC 6.2 4.0 - 10.7 x10E9/L 07/30/2024 9:59 AM CDT [facility] RBC Count 4.95 3.90 - 5.20 x10E12/L 07/30/2024 9:59 AM T [facility] Hemoglobin 14.8 11.9 - 15.8 g/dL 07/30/2024 9:59 AM [facility] Hematocrit 44.9 34.8 - 46.1 % 07/30/2024 9:59 AM [facility] MCV 90.7 80.0 - 98.0 fL 07/30/2024 9:59 AM T [facility] MCH 29.9 26.7 - 33.6 pg 07/30/2024 9:59 AM [facility] MCHC 33.0 31.7 - 36.3 g/dL 07/30/2024 9:59 AM [facility] RDW-CV 13.6 11.3 - 14.8 % 07/30/2024 9:59 AM [facility] Platelet Count 424(H) 150 - 420 x10E9/L 07/30/2024 9:59 AM [facility] MPV 10.2 7.8 - 11.4 fL 07/30/2024 9:59 AM [facility] Preliminary Absolute Neutrophil 4.32 1.60 - 7.50 x10E9/L 07/30/2024 9:59 AM T [facility] Neutrophil % 70.2 41.0 - 74.0 % 07/30/2024 9:59 AM [facility] Lymphocyte % 13.3(L) 17.0 - 47.0 % 07/30/2024 9:59 AM [facility] Monocyte % 8.8 3.0 - 11.0 % 07/30/2024 9:59 AM [facility] Eosinophil % 6.5 0.0 - 7.0 % 07/30/2024 9:59 AM [facility] Basophil % 1.0 0.0 - 1.6 % 07/30/2024 9:59 AM [facility] Immature Granulocytes % 0.2 0.0 - 1.0 % 07/30/2024 9:59 AM [facility] Neutrophil Absolute 4.32 1.60 - 7.50 x10E9/L 07/30/2024 9:59 AM [facility] Lymphocyte Absolute 0.82(L) 1.00 - 4.40 x10E9/L 07/30/2024 9:59 AM [facility] Monocyte Absolute 0.54 0.15 - 1.00 x10E9/L 07/30/2024 9:59 AM [facility] Eosinophil Absolute 0.40 0.00 - 0.60 x10E9/L 07/30/2024 9:59 AM [facility] Basophil Absolute 0.06 0.00 - 0.13 x10E9/L 07/30/2024 9:59 AM [facility] Blood BLOOD SPECIMEN / Unknown Venipuncture / Unknown 07/30/2024 9:30 AM CDT 07/30/2024 9:55 AM CDT Catherine Hoffman MD LAB - HEMATOLO GY ORDERABLES Performing Organization Address City/State/[facility] Co de Phone Number [facility] [address] [place] [phone], [facility] [phone] documented in this encounter Visit Diagnoses Diagnosis Rheumatoid arthritis involving multiple sites with positive rheumatoid factor (HCC)- Primary Rheumatoid arthritis, involving unspecified site, unspecified whether rheumatoid factor present (HCC) 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 Encounter for therapeutic drug monitoring Long-term use 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 termite exterminator 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 Arthralgia, unspecified joint High risk medications (not anticoagulants) long-term use Encounter for long-term (current) use of other medications documented in this encounter Administered Medications Inactive Administered Medications - up to 3 most recent administrations Medication Order MAR Action Action Date Dose Rate Site acetaminophen (Tylenol) tablet 650 mg 650 mg, Oral, ONCE, 1 dose, On Tue07/30/24 at 0915, Maximum allowable Acetaminophen amount = 4 Grams / 24 hours. Patient preference for lesser PRN pain meds may be honored when the patient requests a less strong medication, a lower dose, or a less intrusive route of administration when the lesser drug, dose and route have been ordered for the patient. This patient request must be documented in the MAR. If both oral and IV options are ordered for the same pain severity, give oral first unless patient cannot tolerate oral intake $ Given 07/30/2024 9:36 AM CDT 650 mg methylPREDNISolone sod succ (SOLU-Medrol) injection 125 mg 125 mg, Intravenous, ONCE, 1 dose, On Tue07/30/24 at 0915 $ Given 07/30/2024 9:37 AM CDT 125 mg riTUXimab (Rituxan) 1,000 mg in 0.9% NaCl IV 500 mL infusion 1,000 mg, Intravenous, CONTINUOUS, Starting on Tue07/30/24 at 0945, Until Tue07/30/24 at 1544, PREMEDICATIONS: should be administered at least 30 minutes prior to infusion. Initial Titration Instructions or problems tolerating previous infusion Initiate at 25 mL/hr (VTBI: 12.5 mL) for 30 min. If tolerated, increase rate to 50 mL/hr (VTBI: 25 mL) for 30 min. If tolerated, increase rate to 75 mL/hr (VTBI: 37.5 mL) for 30 min. If tolerated, increase rate to 100 mL/hr (VTBI: 50 mL) for 30 min. If tolerated, increase rate to 125 mL/hr (VTBI: 62.5 mL) for 30 min. If tolerated, increase rate to 150 mL/hr (VTBI: 75 mL) for 30 min. If tolerated, increase rate to 175 mL/hr (VTBI: 87.5 mL) for 30 min If tolerated, increase rate to 200 mL/hr until bag contents are completely infused If a reaction were to occur, after symptoms have resolved, resume infusion at a 50% reduction in rate. Above titrations are equivalent to initiating at 50 mg/hr and titrate by 50mg/hr increments every 30 minutes as tolerated to a maximum of 400mg/hr. For subsequent infusion if previously tolerated Initiate at 50 mL/hr (VTBI 25 mL) for 30 min If tolerated, increase rate to 100 mL/hr (VTBI: 50 mL) for 30 min. If tolerated, increase rate to 150 mL/hr (VTBI: 75 mL) for 30 min If tolerated, increase rate to 200 mL/hr until bag contents are completely infused. If a reaction were to occur, after symptoms have resolved, resume infusion at a 50% reduction in rate. Above titrations are equivalent to initiating at 100 mg/hr and titrate by 100 mg/hr increments every 30 minutes as tolerated to a maximum of 400mg/hr. $ New Bag/Syringe 07/30/2024 10:28 AM CDT 1,000 mg 50 mL/hr documented in this encounter Care Teams Business Support Specialist Relationship Specialty Start Date End Date Sultana Sullivan MD [address] [place] [phone] PCP - General 11/24/22 documented as of this encounter
--- OUTSIDE RECORDS SUMMARY | 2024-10-16 22:29 | XMS_ITS | Referral Summary ---
Author Organization [facility] Address [address] [facility] [place] [address] Care Team Providers Care System Designer Name Role Phone Sultana Sullivan MD Primary Care Provider [phone] Source Comments [facility],non-owned Affiliates and Associated Physician Practices is amultiple site organization consisting of ambulatory clinics and hospital sitesin [place], [place], [place] and [place]. This disclosure is being madepursuant to the Care Everywhere program and may not contain all information available regarding this patient. Last updated 18.[facility] Encounters Date Type Department Care Team Description 08/13/2024 Travel 08/13/2024 9:00 AM QUANTITATIVE EQUITY HEAD - 08/13/2024 11:59 PM QUANTITATIVE EQUITY HEAD Hospital Encounter [facility] [address] [place] [phone] Sultana Sullivan MD Discharge Disposition: Home or Self Care 07/30/2024 Travel 07/30/2024 9:00 AM CDT - 07/30/2024 11:59 PM CDT Hospital Encounter [facility] [address] [place] [address] Sultana Sullivan MD Discharge Disposition: Home or Self Care from Last 3 Months Allergies No known active allergies Medications * Be aware that medications may not be up to date on this document. Alwaysverify current medications with the patient. Medication Sig Dispensed Refills Start Date End Date Status naproxen (Naprosyn) 500 MG tabletIndications:Rhe umatoid arthritis, involving unspecified site, unspecified whether rheumatoid factor present (HCC) Take 1 (one) tablet by mouth 2 times daily 180 tablet 07/06/2024 Active Active Problems Problem Noted Date Diagnosed Date Rheumatoid arthritis involvi ng multiple sites with positive rheumatoid factor 03/24/2023 Social History Tobacco Use Types Packs/Day Years Used Date Smoking Tobacco: Former Cigarettes 0.5 20 0 03/10/2001 - 03/10/2021 Smokeless Tobacco: Never Tobacco Cessation:Counseling Given: Not Answered Alcohol Use Standard Drinks/Week Comments Never 0 (1 standard drink = 0.6 oz pur e alcohol) PHQ-2 Answer Date Recorded Patient Health Questionnaire-2 Score 0 01/18/2024 Sex and Gender Information Value Date Recorded Sex Assigned at Not on file Gender Identity Not on file Sexual Orientation Not on file Last Filed Vital Signs Vital Sign Reading Time Taken Comments Blood Pressure 135/82 08/13/2024 9:38 AM QUANTITATIVE EQUITY HEAD Pulse 75 08/13/2024 9:38 AM QUANTITATIVE EQUITY HEAD Temperature 36.4 ??C (97.5 ??F) 08/13/2024 9:38 AM CS T Respiratory Rate 18 08/13/2024 9:38 AM QUANTITATIVE EQUITY HEAD Oxygen Saturation 100% 08/13/2024 9:38 AM QUANTITATIVE EQUITY HEAD Inhaled Oxygen Concentration - - Weight 59 kg (130 lb) 08/13/2024 9:38 AM QUANTITATIVE EQUITY HEAD Height 152.4 cm (5') 06/20/2024 11:00 AM CDT Body Mass Index 25.39 06/20/2024 11:00 AM CDT Plan of Treatment Upcoming Encounters Date Type Department Care Team (Late st Contact Info) Description 10/31/2024 10:00 AM QUANTITATIVE EQUITY HEAD Office Visit [facility] - Rheumatology [address] [place] [address], [place] [phone] Antonio Bowles MD [address] [place] [address] [place] [phone] 02/01/2025 9:00 AM CDT Appointment [facility] [address] [place] [phone] Sultana Sullivan MD [address] [place] [phone] Procedures Procedure Name Priority Date/Time Associated Diagnosis Comments IGM BLOOD Routine 07/30/2024 9:30 AM CDT Rheumatoid arthritis, involving unspecified site, unspecified whether rheumatoid factor present (HCC) 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-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 Arthralgia, unspecified joint High risk medications (not anticoagulants) long-term use IGG BLOOD Routine 07/30/2024 9:30 AM CDT Rheumatoid arthritis, involving unspecified site, unspecified whether rheumatoid factor present (HCC) 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 Long-term use 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 [facility] 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 Arthralgia, unspecified joint High risk medications (not anticoagulants) long-term use IGA BLOOD Routine 07/30/2024 9:30 AM CDT Rheumatoid arthritis, involving unspecified site, unspecified whether rheumatoid factor present (HCC) 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 Long-term use 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 [facility] 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 Arthralgia, unspecified joint High risk medications (not anticoagulants) long-term use ERYTHROCYTE SEDIMENTATION RATE Routine 07/30/2024 9:30 AM CDT Rheumatoid arthritis, involving unspecified site, unspecified whether rheumatoid factor present (HCC) 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-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 Arthralgia, unspecified joint High risk medications (not anticoagulants) long-term use C-REACTIVE PROTEIN Routine 07/30/2024 9: 30 AM CDT Rheumatoid arthritis, involving unspecified site, unspecified whether rheumatoid factor present (HCC) 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-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 Arthralgia, unspecified joint High risk medications (not anticoagulants) long-term use COMPREHENSIVE METABOLIC PANEL Routine 07/30/2024 9:30 AM CDT Rheumatoid arthritis, involving unspecified site, unspecified whether rheumatoid factor present (HCC) 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-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 Arthralgia, unspecified joint High risk medications (not anticoagulants) long-term use CBC W AUTO DIFFERENTIAL Routine 07/30/2024 9:30 AM CDT Rheumatoid arthritis, involving unspecified site, unspecified whether rheumatoid factor present (HCC) 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 Long-term use 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 [facility] 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 Arthralgia, unspecified joint High risk medications (not anticoagulants) long-term use HEPATITIS C ANTIBODY 06/17/2023 4:11 PM CDT from Last 3 Months or Most Recently Relevant to Health Maintenance Results * C-REACTIVE PROTEIN (07/30/2024 9:30 AM CDT) C-Reactive Protein <0.5 <=0.5 mg/dL 07/30/2024 10:28 AM CDT [facility] Blood BLOOD SPECIMEN / Unknown Venipuncture / Unknown 07/30/2024 9:30 AM CDT 07/30/2024 9:55 AM CDT Catherine Hoffman MD LAB - CHEMISTR Y ORDERABLES [address] [phone], [facility] [phone] * (ABNORMAL) ERYTHROCYTE SEDIMENTATION RATE (07/30/2024 9:30 AM CDT) [facility] Erythrocyte Sedimentation Rate Westergren 48(H) 0 - 30 MM/HR 07/30/2024 10:17 AM CDT [facility] Blood BLOOD SPECIMEN / Unknown Venipuncture / Unknown 07/30/2024 9:30 AM CDT 07/30/2024 9:55 AM CDT Catherine Hoffman MD LAB - HEMATOLO GY ORDERABLES [address] [address], [facility] [phone] * (ABNORMAL) CBC WITH DIFFERENTIAL (07/30/2024 9:30 AM CDT) Pathologist [facility] WBC 6.2 4.0 - 10.7 x10E9/L 07/30/2024 9:59 AM [facility] RBC Count 4.95 3.90 - 5.20 x10E12/L 07/30/2024 9:59 AM [facility] Hemoglobin 14.8 11.9 - 15.8 g/dL 07/30/2024 9:59 AM [facility] Hematocrit 44.9 34.8 - 46.1 % 07/30/2024 9:59 AM [facility] MCV 90.7 80.0 - 98.0 fL 07/30/2024 9:59 AM [facility] MCH 29.9 26.7 - 33.6 pg 07/30/2024 9:59 AM [facility] MCHC 33.0 31.7 - 36.3 g/dL 07/30/2024 9:59 AM [facility] RDW-CV 13.6 11.3 - 14.8 % 07/30/2024 9:59 AM [facility] Platelet Count 424(H) 150 - 420 x10E9/L 07/30/2024 9:59 AM [facility] MPV 10.2 7.8 - 11.4 fL 07/30/2024 9:59 AM [facility] Preliminary Absolute Neutrophil 4.32 1.60 - 7.50 x10E9/L 07/30/2024 9:59 AM [facility] Neutrophil % 70.2 41.0 - 74.0 % 07/30/2024 9:59 AM [facility] Lymphocyte % 13.3(L) 17.0 - 47.0 % 07/30/2024 9:59 AM [facility] Monocyte % 8.8 3.0 - 11.0 % 07/30/2024 9:59 AM [facility] Eosinophil % 6.5 0.0 - 7.0 % 07/30/2024 9:59 AM [facility] Basophil % 1.0 0.0 - 1.6 % 07/30/2024 9:59 AM [facility] Immature Granulocytes % 0.2 0.0 - 1.0 % 07/30/2024 9:59 AM [facility] Neutrophil Absolute 4.32 1.60 - 7.50 x10E9/L 07/30/2024 9:59 AM [facility] Lymphocyte Absolute 0.82(L) 1.00 - 4.40 x10E9/L 07/30/2024 9:59 AM [facility] Monocyte Absolute 0.54 0.15 - 1.00 x10E9/L 07/30/2024 9:59 AM [facility] Eosinophil Absolute 0.40 0.00 - 0.60 x10E9/L 07/30/2024 9:59 AM [facility] Basophil Absolute 0.06 0.00 - 0.13 x10E9/L 07/30/2024 9:59 AM [facility] Blood BLOOD SPECIMEN / Unknown Venipuncture / Unknown 07/30/2024 9:30 AM CDT 07/30/2024 9:55 AM CDT Catherine Hoffman MD LAB - HEMATOLO GY ORDERABLES Performing Organization Address City/State/[facility] Co de Phone Number [facility] [address] [place] [address], [facility] [phone] * (ABNORMAL) COMPREHENSIVE METABOLIC PANEL (07/30/2024 9:30 AM CDT) BUN 15 7 - 26 mg/dL 07/30/2024 10:42 AM [facility] Creatinine 0.75 0.56 - 0.96 mg/dL 07/30/2024 10:42 AM [facility] Sodium 140 136 - 145 mmol/L 07/30/2024 10:42 AM [facility] Potassium 4.1 3.5 - 4.5 mmol/L 07/30/2024 10:42 AM [facility] Chloride 107 98 - 107 mmol/L 07/30/2024 10:42 AM [facility] CO2 24 22 - 29 mmol/L 07/30/2024 10:42 AM [facility] Glucose 90 70 - 115 mg/dL 07/30/2024 10:42 AM [facility] Calcium 9.4 8.4 - 10.2 mg/dL 07/30/2024 10:42 AM [facility] Protein Total 7.5 6.0 - 8.3 g/dL 07/30/2024 10:42 AM [facility] Albumin 4.0 3.4 - 5.0 g/dL 07/30/2024 10:42 AM [facility] Bilirubin Total 0.4 0.2 - 1.2 mg/dL 07/30/2024 10:42 AM [facility] Alkaline Phosphatase 97 40 - 150 U/L 07/30/2024 10:42 AM [facility] ALT 15 5 - 55 U/L 07/30/2024 10:42 AM [facility] AST 20 5 - 34 U/L 07/30/2024 10:42 AM [facility] Anion Gap 9 6 - 16 07/30/2024 10:42 AM [facility] BUN/Creatinine Ratio 20 7 - 23 07/30/2024 10:42 AM [facility] Osmolality Calculated 290 275 - 295 mOsm/kg 07/30/2024 10:42 AM [facility] Albumin/Globulin Ratio 1.1 1.1 - 2.3 07/30/2024 10:42 AM [facility] eGFR by CKD-EPI 88(L) >=90 mL/min/1.7 3 m2 07/30/2024 10:42 AM [facility] Blood BLOOD SPECIMEN / Unknown Venipuncture / Unknown 07/30/2024 9:30 AM CDT 07/30/2024 9:55 AM T Catherine Hoffman MD LAB - CHEMISTR Y ORDERABLES [facility] [address] [place] [address], [facility] [phone] * (ABNORMAL) IGM BLOOD (07/30/2024 9:30 AM CDT) IgM 35(L) 37 - 286 mg/dL 07/30/2024 11:26 AM [facility] Blood BLOOD SPECIMEN / Unknown Venipuncture / Unknown 07/30/2024 9:30 AM CDT 07/30/2024 10:32 AM CDT Catherine Hoffman MD LAB - CHEMISTR Y ORDERABLES Performing Organization Address City/[facility]/ZIP Co de Phone Number [address] [address], [facility] [phone] * IGG BLOOD (07/30/2024 9:30 AM CDT) IgG 1,182 767 - 1,590 mg/dL 07/30/2024 11:26 AM CDT [facility] Blood BLOOD SPECIMEN / Unknown Venipuncture / Unknown 07/30/2024 9:30 AM CDT 07/30/2024 10:32 AM CDT Catherine Hoffman MD LAB - CHEMISTR Y ORDERABLES Performing Organization Address [facility] Co de Phone Number [address] [address], [facility] [phone] * IGA BLOOD (07/30/2024 9:30 AM CDT) Pathologist [facility] IgA 250 61 - 356 mg/dL 07/30/2024 11:26 AM CDT [facility] Blood BLOOD SPECIMEN / Unknown Venipuncture / Unknown 07/30/2024 9:30 AM CDT 07/30/2024 10:32 AM CDT Catherine Hoffman MD LAB - CHEMISTR Y ORDERABLES Performing Organization Address City/[facility]/ZIP Co de Phone Number [address] [address], [place] [phone] * HEPATITIS C ANTIBODY (06/17/2023 4:11 PM CDT) Pathologist [facility] Hepatitis C Antibody Non Reactive Non Reactive [facility] INSURANCE BILL Comment: HCV antibody alone does not differentiate between previously resolved infection and active infection. Equivocal and Reactive HCV antibody results should be followed up with an HCV RNA test to support the diagnosis of active HCV infection. 06/17/2023 4:11 PM CDT 06/17/2023 Narrative Resulting Agency Comment Lab Testing performed at: [facility] [address] [facility] ??[facility] [phone] Catherine Hoffman MD LAB - CHEMISTR Y ORDERABLES [facility] INSURANCE BILL [address] [place] [address] from Last 3 Months or Most Recently Relevant to Health Maintenance Care Teams System Designer Relationship Specialty Start Date End Date Sultana Sullivan MD [address] [place] [phone] PCP - General 11/24/22
--- OUTSIDE RECORDS SUMMARY | 2024-10-16 22:29 | XMS_ITS | Encounter Summary ---
Author Organization [facility] Address [address] [facility] [place] [address] Care Team Providers Care Professor Of Oceanography Name Role Phone Sultana Sullivan MD Primary Care Provider [phone] Reason for Visit * Oncology Prior Authorization (Routine) - Authorized Specialty Diagnoses / Procedures Referred By Contac t Referred To Contact Diagnoses Rheumatoid arthritis involving multiple sites with positive rheumatoid factor (HCC) Antonio Bowles MD [address] [facility] [place] [address] [facility] [address] [place] [phone] Referral ID Status Reason Start Date Expiration Date V isits Requested Visits Authorized [id number] Authorized 07/19/2024 07/19/2025 1 1 Encounter Details Date Type Department Care Team (Latest Contact Info) Description 08/13/2024 9:00 AM [employer]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 - 08/13/2024 11:59 PM [facility] Hospital Encounter [facility] [place] [address] Sultana Sullivan MD [address] [place] [phone] Discharge Disposition: Home or Self Care [...] Comments Blood Pressure 135/82 08/13/2024 9:38 AM [employer]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 Pulse 75 08/13/2024 9:38 AM [employer]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 Temperature 36.4 ??C (97.5 ??F) 08/13/2024 9:38 AM CS T Respiratory Rate 18 08/13/2024 9:38 AM [employer]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 Oxygen Saturation 100% 08/13/2024 9:38 AM [employer]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 Inhaled Oxygen Concentration - - Weight 59 kg (130 lb) 08/13/2024 9:38 AM [employer]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 Height - - Body Mass Index 25.39 06/20/2024 11:00 AM CDT documented in this [...] st Contact Info) Description 10/31/2024 10:00 AM T[employer]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 Office Visit [facility] - Rheumatology [address] [place] [address], [facility] [place] [phone] Antonio Bowles MD [address] [place] [address] [place] [phone] 02/01/2025 9:00 AM CDT Appointment [facility] [address] [place] [address] Sultana Sullivan MD [address] [place] [phone] documented as of this encounter Visit Diagnoses Diagnosis Rheumatoid arthritis involving multiple sites with positive rheumatoid factor (HCC)- Primary documented in this encounter Administered Medications Inactive Administered Medications - up to 3 most recent administrations Medication Order MAR Action Action Date Dose Rate Site acetaminophen (Tylenol) tablet 650 mg 650 mg, Oral, ONCE, 1 dose, On Tue08/13/24 at 0945, Maximum allowable Acetaminophen amount = 4 Grams [...] patient cannot tolerate oral intake $ Given 08/13/2024 9:58 AM [employer]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 650 mg methylPREDNISolone sod succ (SOLU-Medrol) injection 125 mg 125 mg, Intravenous, ONCE, 1 dose, On Tue08/13/24 at 0945 $ Given 08/13/2024 9:58 AM [employer]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 125 mg riTUXimab (Rituxan) 1,000 mg in 0.9% NaCl IV 500 mL infusion 1,000 mg, Intravenous, CONTINUOUS, Starting on Tue08/13/24 at 1030, Until Tue08/13/24 at 1629, PREMEDICATIONS: should be administered at least 30 [...] a maximum of 400mg/hr. $ New Bag/Syringe 08/13/2024 10:44 AM T[employer]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 1,000 mg 50 mL/hr documented in this encounter Care Teams Professor Of Oceanography Relationship Specialty Start Date End Date Sultana Sullivan MD [address] [place] [phone] PCP - General 11/24/22 documented as of this encounter
--- OUTSIDE RECORDS SUMMARY | 2024-10-16 22:29 | XMS_ITS | Encounter Summary ---
Author Organization [facility] Address [address] [facility] [place] [address] Care Team Providers Care Music Rehabilitation Therapist Name Role Phone Sultana Sullivan MD Primary Care Provider [phone] Reason for Visit * Reason Comments Follow-up Rheumatoid arthritis * Consult, Test & Treat (Routine) - Closed Specialty Diagnoses / Procedures Referred By Contac t Referred To Contact Rheumatology Diagnoses Rheumatoid arthritis, unspecified (HCC) Procedures MT UNLISTED E/M SERVICE Sultana Sullivan MD [address] [place] [phone] Antonio Bowles MD [address] [place] [phone] Referral ID Status Reason Start Date Expiration Date Visits Re quested Visits Authorized [id number] Closed 10/10/2023 10/09/2024 99 99 Encounter Details Date Type Department Care Team (Latest Contact Info) Description 06/20/2024 11:00 AM CDT Office Visit [facility] - Rheumatology [address] [place] [address], [place] [address] Antonio Bowles MD [address] [place] [phone] Rheumatoid arthritis, involving unspecified site, unspecified whether rheumatoid factor present (HCC) (Primary Dx); 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; half-way 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; High risk medications (not anticoagulants) long-term use Social History Tobacco Use Types Packs/Day Years [...] Sign Reading Time Taken Comments Blood Pressure 153/94 06/20/2024 11:00 AM CDT Pulse 83 06/20/2024 11:00 AM CDT Temperature 36.7 ??C (98.1 ??F) 06/20/2024 11:00 AM C DT Respiratory Rate 16 06/20/2024 11:00 AM CDT Oxygen Saturation 97% 06/20/2024 11:00 AM CDT Inhaled Oxygen Concentration - - Weight 56.7 kg (125 lb) 06/20/2024 11:00 AM CDT Height 152.4 cm (5') 06/20/2024 11:00 AM CDT Body Mass Index 24.41 06/20/2024 11:00 AM CDT documented in this encounter Patient Instructions * Patient Instructions* Antonio Bowles MD - 06/20/2024 11:31 AM CDT Labs today Continue Rituximab infusions every 6 months (next scheduled 07/20/24) RTC in 4-5 months SCHEDULING: To schedule, reschedule, or cancel an appointment, please call the Central Scheduling department at [phone] or [phone] option 1. CONTACT: If you need to leave a message for your flag car driver, you can send an electronic messageImmusofta AskBot or call the clinic and leave a voicemail (the voicemail is checked several times daily on week days). [facility] Rheumatology Clinics: (1) [facility]: , (2) [facility]: , [facility] Infusion Centers: (1) [facility] Infusion Center: , (2) [facility]: , REFILLS: If you need a refill on your medication, please contact your pharmacy first to request a refill; if there are no more refills and you need a new prescription, you can request a new prescription through MyChart or call the clinic. TEST RESULTS: If you choose to get labs or imaging at an outside facility, it is your (as the patient) responsibility to have these results sent to us - we recommend providing the outside facility with the fax number (listed above) to the rheumatology clinic you attend. RHEUMATOLOGIC EMERGENCIES: For after hours rheumatologic emergencies only, you can reach the on-call flag car driver by calling the [facility] service station console operator at [phone] and ask forthe Pig Sticker On-Call to be paged, but please also seek out appropriate care at [facility] Emergency Department. documented in this encounter Progress Notes * Catherine Hoffman MD - 06/20/2024 11:19 AM CDT Patient seen and examined with fellow Dr. Weber. Please see note for further details. I confirm history, exam, assessment and plan. In addition I note: Interval history: patient is 64 year old female with Rheumatoid arthritis, reports feeling fine. She was evaluated by hand surgery, tried steroid shots and physical therapy, with minimal help. She has no joint pain or swelling Exam: Vitals: 06/20/24 1100 BP: 153/94 Pulse: 83 Resp: 16 Temp: 98.1 ??F (36.7 ??C) SpO2: 97% Weight: 56.7 kg (125 lb) Height: 1.524 m (5') MCP's right hand S1 minimal tenderness Left 4th and 5th fingers, unable to raise, flexion contractures Wrists T0 bilaterally Heart: RRR Lungs: clear Last labs: reviewed 01/20/24 Assessment/Plan: Dr. Serna's patient Patient is 64year old female with Seropositive Rheumatoid arthritis, who reports feeling fine, stable, no joint pain or swelling Had LFT elevation with Methotrexate Had head ache with Tofacitinib She is not interested in starting injections Continue Rituximab 1 gm 2 weeks apart ( 2 doses) IV every 6 months, last dose 01/31 She stopped SSZ due GI side effects with higher doses She is not interested begin Prednisone Continue Naproxen 500mg twice daily Check labs to monitor potential toxicity of medicine and disease process 2. Finger contractures: she was evaluated by hand surgery, s/p injection and physical therapy, may need surgery F/u in 4 months 06/20/2024 11:19 AM See fellow's note for further details Catherine Hoffman MD * [facility] 06/20/2024 11:07 AM CDT Rheumatology Clinic Consultation Note Patient: Sultana Vincent ( , 1960, 64 year old female) Encounter Date: 06/20/2024 Chief Concern: seropositive RA (+RF, +CCP, no erosions in 2020) Subjective History of Present Illness: Sultana Vincent is a 64 year old female presenting for follow up of seropositive RA (+RF, +CCP). Today: Patient continues to have great control of RA with Rituximab infusions (last completed during January2024). Morning stiffness present for about 15-30 minutes. Since last visit, patient has been evaluated by hand surgery and after discussion, patient declined any procedure/surgery at this time but was given finger steroid injection during visit. Was then referred to OT hand therapy which the patient completed 5 sessions and currently using exercises at home. Continues to deny rashes, vision changes, Raynaud's, oral/nasal ulcers, or headaches. 01/18/24: States she feels better with Rituximab, able to walk up the stairs and walking. Today she feels herwhole body hurts. States she feels stiffness all over her body all the time. Notices swelling of hands on and off. Feels whole body is stiff all the time. She does have dry eyes. Denies rashes, vision issues, raynaud's, ulcers, sores. Various options were discussed including injectables/ infusions/ TNF agents like Enbrel, Humira, Cimzia, which she denied until she finally said yes to RTX in 02/2023. Explained that Rinvoq also belongs to same class of RAKEL inhibitors like Xeljanz but continued to deny it. denies to try steroids for flares. Current meds Naproxen 500 mg bid RTX, 1st dose on 04/06/23 and missed the next one. Again restarted with D1 07/21/23 and D15 08/04/23. Followed by repeat doses on 01/19 and 02/03/24. Previous history: Xeljanz 11 mg daily: dizziness, headache, nausea after two times and took two days to feel better. Patient stopped it. Hydroxychloroquine 200 mg Naproxen 500 mg bid: no improvement in symptoms. Methotrexate 15 mg in 2020: with some benefit, but stopped due to persistent transaminitis. Samples of Rinvoq given on last visit, patient did not try yet. Authorization for Rinvoq denied. Scared to start Rinvoq as per the patient. Discontinued SSZ on her own (Were able to start SSZ but when increased to 1500 mg BD, had Nausea and stopped it on her own altogether). Did not try the HCQ stating she was scared and doesn't want to take many meds. Family and social history: Was working in a [employer], [place] Has 3 sons, no miscarriages Doesn't know if there was any family history, lost parents early. Smoked 1 ppd for >30 years and quit 2020 after RA diagnosis Review of Systems: Other systems reviewed and negative or noncontributory except as stated in the HPI. Home Medications: Current Outpatient Medications: naproxen (Naprosyn) 500 MG tablet, Take 1 tablet by mouth twice daily, Disp: 180 tablet, Rfl: 0 Adverse Drug Reactions: No Known Allergies Past Medical History: Past Medical History: Diagnosis Date Former smoker quit 03/2021 Thrombocytosis saw heme onc 2018, no etiology found Past Surgical History: Past Surgical History: Procedure Laterality Date Bilateral Tubal Ligation (BTL) Immunization History: There is no immunization history on file for this patient. Social History: Social History Socioeconomic History Marital status: Tobacco Use Smoking status: Former Packs/day: 0.50 Years: 20.00 Additional pack years: 0.00 Total pack years: 10.00 Types: Cigarettes Quit date: 03/10/2021 Years since quittin.2 Smokeless tobacco: Never Vaping Use Vaping Use: Never used Substance and Sexual Activity Alcohol use: Never Drug use: Never Sexual activity: Not Currently Family History: No family history on file. Patient Care Team: Sultana Sullivan MD Patient Care Team: Sultana Sullivan MD as PCP - General Objective Physical Exam BP 153/94 (BP Location: Right arm, Patient Position: Sitting) Pulse 83 Temp 98.1 ??F (36.7 ??C)(Oral) Resp 16 Ht 1.524 m (5') Wt 56.7 kg (125 lb) SpO2 97% BMI 24.41 kg/m?? GENERAL: NAD HEENT/NECK: White sclerae. Ext ears wnl. No oropharyngeal lesions. No palpable masses. CHEST/LUNGS: Normal work of breathing, CTAB. CARDIOVASCULAR: Regular rhythm, crisp S1/S2. No BRENDAN. ABDOMEN: S/ND/NT. SKIN/NAILS: No rashes on exposed skin. PSYCH: Alert, appropriately interactive. NEURO: Sensation intact to soft touch. Normal muscle bulk and strength in trunk and limbs. MSK: Right MCP's with mild tenderness to palpation. Chronic ulnar deviation present bilaterally with left 4th and 5th fingers with flexion contractures. No synovitis, erythema, or tenderness to palpation of the bilateral shoulders, elbows, wrists, knees, or ankles. Labs: Reviewed, including those as noted below No results found for this or any previous visit (from the past 2352 hour(s)). Other Studies: Labs 01/20/24: - CBC with elevated PLT of 487 - CMP WNL - CRP = 2.0 - ESR = 72 - IgG = 1,379 - IgM = 38 - IgA = 258 Assessment & Recommendations #. Seropositive RA Onset : 07/2021. Diagnosis supported by clinical and serological phenotype:CCP>250 in 03/2021. +CCP and +RF 59 07/2021, bilateral MCPs, PIPs and MTPs swelling with AM stiffness. Current meds Naproxen 500 mg bid RTX, 1st dose on 04/06/23 and missed the next one. Again restarted with D1 07/21/23 and D15 08/04/23. Followed by repeat doses on 01/19 and 02/03/24. Previous history: Xeljanz 11 mg daily: dizziness, headache, nausea after two times and took two days to feel better. Patient stopped it. Hydroxychloroquine 200 mg naproxen 500 mg bid: no improvement in symptoms. Methotrexate 15 mg in 2020: with some benefit, but stopped due to persistent transaminitis. Samples of Rinvoq given on many visits in the past, patient did not try yet. Authorization for Rinvoq denied. Scared to start Rinvoq as per the patient. Discontinued SSZ on her own (Were able to start SSZ but when increased to 1500 mg BD, had Nausea and stopped it on her own altogether). Did not try the HCQ stating she was scared and doesn't want to take many meds. Status: Not active. # Thrombocytosis: Chronic (baseline 600-700). Likely in the setting of inflammation. Will monitor. #. Osteopenia: Following and being managed by PCP. Was on high dose vitamin D weekly previously. #. Drug Toxicity Monitoring - Labs as below. - Recommend to be up to date with Cancer screenings including breast and colonl cancer screening, but needs lung cancer screening given history of tobacco abuse and was asked to follow up with her PCP. #. Immunosuppression due to drug therapy - Latent infection screen: Hep B and C screen neg 06/2023. TB 10/2023 neg. - Immunizations per PCP: for all patients on immunosuppressive therapy we recommend annual influenza vaccine, COVID19 vaccine, Prevnar, Pneumovax, Shingrix. Patient denies COVID vaccine. - Patient advised to contact clinic in case of any infections or antibiotic use. RECOMMENDATIONS: - Continue Naproxen 500 mg BID - Continue Rituximab 1000 mg IV Q6 months, Day 1 and Day 15 with IV methylprednisolone 125 mg. Nextscheduled 07/20/24. - Labs today for monitoring - Osteopenia management as advised by PCP - Labs as below with infusion including Immunoglobulin levels. - Use squeeze ball for hand exercises #. Follow-up: In 4-5 months or sooner if needed. This patient was seen and staffed with attending Dr. Hoffman. Antonio Bowles MD Rheumatology Fellow [facility] Medicine Encounter orders: Orders Placed This Encounter IGA BLOOD Standing Status: Future Number of Occurrences: 1 Standing Expiration Date: 07/20/2025 Order Specific Question: Release to patient Answer: Immediate IGM BLOOD Standing Status: Future Number of Occurrences: 1 Standing Expiration Date: 07/20/2025 Order Specific Question: Release to patient Answer: Immediate IGG BLOOD Standing Status: Future Number of Occurrences: 1 Standing Expiration Date: 07/15/2025 Order Specific Question: Release to patient Answer: Immediate ERYTHROCYTE SEDIMENTATION RATE Standing Status: Future Number of Occurrences: 1 Standing Expiration Date: 07/15/2025 Order Specific Question: Release to patient Answer: Immediate C-REACTIVE PROTEIN Standing Status: Future Number of Occurrences: 1 Standing Expiration Date: 07/15/2025 Order Specific Question: Release to patient Answer: Immediate CBC WITH DIFFERENTIAL Standing Status: Future Number of Occurrences: 1 Standing Expiration Date: 07/15/2025 Order Specific Question: Release to patient Answer: Immediate COMPREHENSIVE METABOLIC PANEL Standing Status: Future Number of Occurrences: 1 Standing Expiration Date: 07/15/2025 Order Specific Question: Release to patient Answer: Immediate documented in this encounter Plan of Treatment Upcoming Encounters Date Type Department Care Team (Late st Contact Info) Description 10/31/2024 10:00 AM BLOW DOWN HELPER Office Visit [facility] - Rheumatology [address] [place] [address], [place] [address] Antonio Bowles MD [address] [place] [address] [place] [phone] 02/01/2025 9:00 AM CDT Appointment [facility] [address] [place] [address] Sultana Sullivan MD [address] [place] [phone] documented as of this encounter Results * (ABNORMAL) COMPREHENSIVE METABOLIC PANEL (06/20/2024 12:07 PM CDT) BUN 16 7 - 26 mg/dL 06/20/2024 2:26 PM [facility] Creatinine 0.73 0.56 - 0.96 mg/dL 06/20/2024 2:26 PM [facility] Sodium 140 136 - 145 mmol/L 06/20/2024 2:26 PM [facility] Potassium 4.0 3.5 - 4.5 mmol/L 06/20/2024 2:26 PM [facility] Chloride 108(H) 98 - 107 mmol/L 06/20/2024 2:26 PM [facility] CO2 26 22 - 29 mmol/L 06/20/2024 2:26 PM [facility] Glucose 77 70 - 115 mg/dL 06/20/2024 2:26 PM [facility] Calcium 9.4 8.4 - 10.2 mg/dL 06/20/2024 2:26 PM [facility] Protein Total 7.3 6.0 - 8.3 g/dL 06/20/2024 2:26 PM [facility] Albumin 3.8 3.4 - 5.0 g/dL 06/20/2024 2:26 PM [facility] Bilirubin Total 0.5 0.2 - 1.2 mg/dL 06/20/2024 2:26 PM [facility] Alkaline Phosphatase 90 40 - 150 U/L 06/20/2024 2:26 PM [facility] ALT 15 5 - 55 U/L 06/20/2024 2:26 PM [facility] AST 22 5 - 34 U/L 06/20/2024 2:26 PM [facility] Anion Gap 6 6 - 16 06/20/2024 2:26 PM [facility] BUN/Creatinine Ratio 22 7 - 23 06/20/2024 2:26 PM [facility] Osmolality Calculated 290 275 - 295 mOsm/kg 06/20/2024 2:26 PM [facility] Albumin/Globulin Ratio 1.1 1.1 - 2.3 06/20/2024 2:26 PM [facility] eGFR by CKD-EPI >90 >=90 mL/min/1.7 3 m2 06/20/2024 2:26 PM [facility] Blood BLOOD SPECIMEN / Unknown Lab Venipuncture / Unknown 06/20/2024 12:07 PM CDT 06/20/2024 1:50 PM CDT Catherine Hoffman MD LAB - CHEMISTR Y ORDERABLES [facility] [address] [place] [address], [facility] [phone] * (ABNORMAL) CBC WITH DIFFERENTIAL (06/20/2024 12:07 PM CDT) WBC 8.1 4.0 - 10.7 x10E9/L 06/20/2024 1:58 PM [facility] RBC Count 4.65 3.90 - 5.20 x10E12/L 06/20/2024 1:58 PM [facility] Hemoglobin 13.7 11.9 - 15.8 g/dL 06/20/2024 1:58 PM [facility] Hematocrit 42.2 34.8 - 46.1 % 06/20/2024 1:58 PM [facility] MCV 90.8 80.0 - 98.0 fL 06/20/2024 1:58 PM [facility] MCH 29.5 26.7 - 33.6 pg 06/20/2024 1:58 PM [facility] MCHC 32.5 31.7 - 36.3 g/dL 06/20/2024 1:58 PM [facility] RDW-CV 13.7 11.3 - 14.8 % 06/20/2024 1:58 PM [facility] Platelet Count 422(H) 150 - 420 x10E9/L 06/20/2024 1:58 PM [facility] MPV 10.0 7.8 - 11.4 fL 06/20/2024 1:58 PM [facility] Neutrophil % 70.8 41.0 - 74.0 % 06/20/2024 1:58 PM [facility] Lymphocyte % 15.2(L) 17.0 - 47.0 % 06/20/2024 1:58 PM CDT [facility] Monocyte % 8.8 3.0 - 11.0 % 06/20/2024 1:58 PM T [facility] Eosinophil % 4.2 0.0 - 7.0 % 06/20/2024 1:58 PM T [facility] Basophil % 0.6 0.0 - 1.6 % 06/20/2024 1:58 PM T [facility] Immature Granulocytes % 0.4 0.0 - 1.0 % 06/20/2024 1:58 PM T [facility] Neutrophil Absolute 5.73 1.60 - 7.50 x10E9/L 06/20/2024 1:58 PM [facility] Lymphocyte Absolute 1.23 1.00 - 4.40 x10E9/L 06/20/2024 1:58 PM T [facility] Monocyte Absolute 0.71 0.15 - 1.00 x10E9/L 06/20/2024 1:58 PM T [facility] Eosinophil Absolute 0.34 0.00 - 0.60 x10E9/L 06/20/2024 1:58 PM T [facility] Basophil Absolute 0.05 0.00 - 0.13 x10E9/L 06/20/2024 1:58 PM T [facility] Blood BLOOD SPECIMEN / Unknown Lab Venipuncture / Unknown 06/20/2024 12:07 PM CDT 06/20/2024 1:50 PM CDT Catherine Hoffman MD LAB - HEMATOLO GY ORDERABLES [facility] [address] [place] [address], [facility] [phone] * C-REACTIVE PROTEIN (06/20/2024 12:07 PM CDT) C-Reactive Protein <0.5 <=0.5 mg/dL 06/20/2024 2:27 PM CDT [facility] Blood BLOOD SPECIMEN / Unknown Lab Venipuncture / Unknown 06/20/2024 12:07 PM CDT 06/20/2024 1:50 PM CDT Catherine Hoffman MD LAB - CHEMISTR Y ORDERABLES [address] [address], [place] [phone] * (ABNORMAL) ERYTHROCYTE SEDIMENTATION RATE (06/20/2024 12:07 PM CDT) Erythrocyte Sedimentation Rate Westergren 45(H) 0 - 30 MM/HR 06/20/2024 2:08 PM CDT [facility] Blood BLOOD SPECIMEN / Unknown Lab Venipuncture / Unknown 06/20/2024 12:07 PM CDT 06/20/2024 1:50 PM CDT Catherine Hoffman MD LAB - HEMATOLO GY ORDERABLES Performing Organization Address City/[facility]/ZIP Co de Phone Number [address] [address], [place] [phone] * IGG BLOOD (06/20/2024 12:07 PM CDT) IgG 1,234 767 - 1,590 mg/dL 06/20/2024 2:21 PM CDT [facility] Blood BLOOD SPECIMEN / Unknown Lab Venipuncture / Unknown 06/20/2024 12:07 PM CDT 06/20/2024 1:26 PM CDT Catherine Hoffman MD LAB - CHEMISTR Y ORDERABLES [address] [address], [place] [phone] * (ABNORMAL) IGM BLOOD (06/20/2024 12:07 PM CDT) IgM 32(L) 37 - 286 mg/dL 06/20/2024 2:21 PM CDT [facility] Blood BLOOD SPECIMEN / Unknown Lab Venipuncture / Unknown 06/20/2024 12:07 PM CDT 06/20/2024 1:26 PM CDT Catherine Hoffman MD LAB - CHEMISTR Y ORDERABLES [address] [address], [place] [phone] * IGA BLOOD (06/20/2024 12:07 PM CDT) IgA 236 61 - 356 mg/dL 06/20/2024 2:21 PM CDT [facility] Blood BLOOD SPECIMEN / Unknown Lab Venipuncture / Unknown 06/20/2024 12:07 PM CDT 06/20/2024 1:26 PM CDT Catherine Hoffman MD LAB - CHEMISTR Y ORDERABLES Performing Organization Address City/[facility]/ZIP Co de Phone Number [address] [address], [place] [phone] documented in this encounter Visit Diagnoses Diagnosis Rheumatoid arthritis, involving unspecified site, unspecified whether rheumatoid factor present ([facility])- Primary 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 Encounter for therapeutic drug monitoring continuous churn buttermaker 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 High risk medications (not anticoagulants) long-term use Encounter for long-term (current) use of other medications documented in this encounter Care Teams Music Rehabilitation Therapist Relationship Specialty Start Date End Date Sultana Sullivan MD [address] [place] [phone] PCP - General 11/24/22 documented as of this encounter
--- OUTSIDE RECORDS SUMMARY | 2024-10-16 22:29 | XMS_ITS | Encounter Summary ---
Author Organization [facility] Address [address] [place] [address] Care Team Providers Care Power Transformer Inspector Name Role Phone Sultana Sullivan MD Primary Care Provider [phone] Encounter Details Date Type Department Care Team (Latest Contact Info) Description 07/30/2024 Travel Social History Tobacco Use Types Packs/Day Years [...] on file documented as of this encounter Plan of Treatment Upcoming Encounters Date Type Department Care Team (Late st Contact Info) Description 10/31/2024 10:00 AM ICE CREAM CHEF Office Visit [facility] - Rheumatology [address] [place] [address], [place] [phone] Antonio Bowles MD [address] [place] [address] [place] [phone] 02/01/2025 9:00 AM CDT Appointment [facility] [address] [place] [address] Sultana Sullivan MD [address] [place] [phone] documented as of this encounter Visit Diagnoses Not on filedocumented in this encounter Care Teams Power Transformer Inspector Relationship Specialty Start Date End Date Sultana Sullivan MD [address] [place] [phone] PCP - General 11/24/22 documented as of this encounter
--- OUTSIDE RECORDS SUMMARY | 2024-10-16 22:29 | XMS_ITS | Patient Health Summary ---
Author Organization [facility] Address [address] [place] [address] Care Team Providers Care Kennel Worker Name Role Phone Sultana Sullivan MD Primary Care Provider [phone] Note from [facility],non-owned Affiliates and Associated Physician Practices is amultiple site organization consisting of ambulatory clinics and hospital sitesin [place], [place], [place] and [place]. This disclosure is being madepursuant to the Care Everywhere program and may not contain all information available regarding this patient. Last updated 18.[facility] Allergies No known active allergies* Iodine(Itching) -Low Criticality,Inactive Medications * Be aware that medications may not be up to date on this document. Alwaysverify current medications with the patient. 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 PRODUCTION WORKER Pulse 75 08/13/2024 9:38 AM CLERICAL PRODUCTION WORKER Temperature 36.4 ??C (97.5 ??F) 08/13/2024 9:38 AM CS T Respiratory Rate 18 08/13/2024 9:38 AM CLERICAL PRODUCTION WORKER Oxygen Saturation 100% 08/13/2024 9:38 AM CLERICAL PRODUCTION WORKER Inhaled Oxygen Concentration - - Weight 59 kg (130 lb) 08/13/2024 9:38 AM CLERICAL PRODUCTION WORKER Height 152.4 cm (5') 06/20/2024 11:00 AM CDT Body Mass Index 25.39 06/20/2024 11:00 AM CDT Procedures * IGM BLOOD(Performed 07/30/2024) Performed for Rheumatoid arthritis, involving unspecified site, unspecified whether rheumatoid factor present (HCC), 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, Long-term use 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, 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, Arthralgia, unspecified joint, High risk medications (not anticoagulants) long-term use * IGG BLOOD(Performed 07/30/2024) Performed for Rheumatoid arthritis, involving unspecified site, unspecified whether rheumatoid factor present (HCC), 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, Long-term use 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, 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, Arthralgia, unspecified joint, High risk medications (not anticoagulants) long-term use * IGA BLOOD(Performed 07/30/2024) Performed for Rheumatoid arthritis, involving unspecified site, unspecified whether rheumatoid factor present (HCC), 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, Long-term use 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, retirement 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, Arthralgia, unspecified joint, High risk medications (not anticoagulants) long-term use * ERYTHROCYTE SEDIMENTATION RATE(Performed 07/30/2024) Performed for Rheumatoid arthritis, involving unspecified site, unspecified whether rheumatoid factor present (HCC), 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, Long-term use 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, 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, Arthralgia, unspecified joint, High risk medications (not anticoagulants) long-term use * C-REACTIVE PROTEIN(Performed 07/30/2024) Performed for Rheumatoid arthritis, involving unspecified site, unspecified whether rheumatoid factor present (HCC), 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, Long-term use 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, retirement 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, Arthralgia, unspecified joint, High risk medications (not anticoagulants) long-term use * COMPREHENSIVE METABOLIC PANEL(Performed 07/30/2024) Performed for Rheumatoid arthritis, involving unspecified site, unspecified whether rheumatoid factor present (HCC), 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, Long-term use 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, 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, Arthralgia, unspecified joint, High risk medications (not anticoagulants) long-term use * CBC W AUTO DIFFERENTIAL(Performed 07/30/2024) Performed for Rheumatoid arthritis, involving unspecified site, unspecified whether rheumatoid factor present (HCC), 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, Long-term use 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, retirement 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, Arthralgia, unspecified joint, High risk medications (not anticoagulants) long-term use * COMPREHENSIVE METABOLIC PANEL(Performed 06/20/2024) Performed for Rheumatoid arthritis, involving unspecified site, unspecified whether rheumatoid factor present (HCC), 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, retirement 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, Highrisk medications (not anticoagulants) long-term use * CBC W AUTO DIFFERENTIAL(Performed 06/20/2024) Performed for Rheumatoid arthritis, involving unspecified site, unspecified whether rheumatoid factor present (HCC), 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, retirement 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, Highrisk medications (not anticoagulants) long-term use * C-REACTIVE PROTEIN(Performed 06/20/2024) Performed for Rheumatoid arthritis, involving unspecified site, unspecified whether rheumatoid factor present (HCC), 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, retirement 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, Highrisk medications (not anticoagulants) long-term use * ERYTHROCYTE SEDIMENTATION RATE(Performed 06/20/2024) Performed for Rheumatoid arthritis, involving unspecified site, unspecified whether rheumatoid factor present (HCC), 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, retirement 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, Highrisk medications (not anticoagulants) long-term use * IGG BLOOD(Performed 06/20/2024) Performed for Rheumatoid arthritis, involving unspecified site, unspecified whether rheumatoid factor present (HCC), 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, 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, Highrisk medications (not anticoagulants) long-term use * IGM BLOOD(Performed 06/20/2024) Performed for Rheumatoid arthritis, involving unspecified site, unspecified whether rheumatoid factor present (HCC), 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, retirement 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, Highrisk medications (not anticoagulants) long-term use * IGA BLOOD(Performed 06/20/2024) Performed for Rheumatoid arthritis, involving unspecified site, unspecified whether rheumatoid factor present (HCC), 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, 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, Highrisk medications (not anticoagulants) long-term use * XR HAND LEFT 3VW OR MORE(Performed 02/07/2024) Performed for Rheumatoid arthritis involving multiple sites with positive rheumatoid factor (HCC) * XR HAND RIGHT 3VW OR MORE(Performed 02/07/2024) Performed for Rheumatoid arthritis involving multiple sites with positive rheumatoid factor (HCC) * IGA BLOOD(Performed 01/20/2024) Performed for Rheumatoid arthritis, involving unspecified site, unspecified whether rheumatoid factor present (HCC), 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, Long-term use 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, retirement 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, Arthralgia, unspecified joint, High risk medications (not anticoagulants) long-term use * IGM BLOOD(Performed 01/20/2024) Performed for Rheumatoid arthritis, involving unspecified site, unspecified whether rheumatoid factor present (HCC), 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, Long-term use 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, 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, Arthralgia, unspecified joint, High risk medications (not anticoagulants) long-term use * IGG BLOOD(Performed 01/20/2024) Performed for Rheumatoid arthritis, involving unspecified site, unspecified whether rheumatoid factor present (HCC), 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, Long-term use 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, 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, Arthralgia, unspecified joint, High risk medications (not anticoagulants) long-term use * ERYTHROCYTE SEDIMENTATION RATE(Performed 01/20/2024) Performed for Rheumatoid arthritis, involving unspecified site, unspecified whether rheumatoid factor present (HCC), 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, Long-term use 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, 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, Arthralgia, unspecified joint, High risk medications (not anticoagulants) long-term use * C-REACTIVE PROTEIN(Performed 01/20/2024) Performed for Rheumatoid arthritis, involving unspecified site, unspecified whether rheumatoid factor present (HCC), 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, Long-term use 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, 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, Arthralgia, unspecified joint, High risk medications (not anticoagulants) long-term use * COMPREHENSIVE METABOLIC PANEL(Performed 01/20/2024) Performed for Rheumatoid arthritis, involving unspecified site, unspecified whether rheumatoid factor present (HCC), 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, Long-term use 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, 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, Arthralgia, unspecified joint, High risk medications (not anticoagulants) long-term use * CBC W AUTO DIFFERENTIAL(Performed 01/20/2024) Performed for Rheumatoid arthritis, involving unspecified site, unspecified whether rheumatoid factor present (HCC), 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, Long-term use 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, retirement 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, Arthralgia, unspecified joint, High risk medications (not anticoagulants) long-term use * LAB RESULTS ORDER(Performed 10/19/2023) * QUANTIFERON TB-GOLD(Performed 10/14/2023) * ERYTHROCYTE SEDIMENTATION RATE(Performed 10/14/2023) Performed for Rheumatoid arthritis, involving unspecified site, unspecified whether rheumatoid factor present (HCC), 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, Long-term use 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, retirement 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 * C-REACTIVE PROTEIN(Performed 10/14/2023) Performed for Rheumatoid arthritis, involving unspecified site, unspecified whether rheumatoid factor present (HCC), 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, Long-term use 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, retirement 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 * COMPREHENSIVE METABOLIC PANEL(Performed 10/14/2023) Performed for Rheumatoid arthritis, involving unspecified site, unspecified whether rheumatoid factor present (HCC), 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, Long-term use 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, 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 * CBC W AUTO DIFFERENTIAL(Performed 10/14/2023) Performed for Rheumatoid arthritis, involving unspecified site, unspecified whether rheumatoid factor present (HCC), 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, Long-term use 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, retirement 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 * URINALYSIS W/MICROSCOPIC REFLEX TO CULTURE(Performed 07/21/2023) Performed for Rheumatoid arthritis, involving unspecified site, unspecified whether rheumatoid factor present (HCC), 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 * CULTURE URINE(Performed 07/21/2023) Performed for Rheumatoid arthritis, involving unspecified site, unspecified whether rheumatoid factor present (HCC), 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 * ERYTHROCYTE SEDIMENTATION RATE(Performed 07/21/2023) Performed for Rheumatoid arthritis, involving unspecified site, unspecified whether rheumatoid factor present (HCC), 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, Long-term use 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, retirement 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, Arthralgia, unspecified joint, High risk medications (not anticoagulants) long-term use * C-REACTIVE PROTEIN(Performed 07/21/2023) Performed for Rheumatoid arthritis, involving unspecified site, unspecified whether rheumatoid factor present (HCC), 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, Long-term use 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, 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, Arthralgia, unspecified joint, High risk medications (not anticoagulants) long-term use * COMPREHENSIVE METABOLIC PANEL(Performed 07/21/2023) Performed for Rheumatoid arthritis, involving unspecified site, unspecified whether rheumatoid factor present (HCC), 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, Long-term use 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, 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, Arthralgia, unspecified joint, High risk medications (not anticoagulants) long-term use * CBC W AUTO DIFFERENTIAL(Performed 07/21/2023) Performed for Rheumatoid arthritis, involving unspecified site, unspecified whether rheumatoid factor present (HCC), 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, Long-term use 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, 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, Arthralgia, unspecified joint, High risk medications (not anticoagulants) long-term use * DNA ANTIBODY DS CRITHIDIA IFA(Performed 06/17/2023) * QUANTIFERON TB-GOLD(Performed 06/17/2023) * HISTONE ANTIBODY(Performed 06/17/2023) * RANULFO W REFLEX DS-DNA+ANIA+SSJ(Performed 06/17/2023) * DNA ANTIBODY DOUBLE STRANDED(Performed 06/17/2023) * SCLERODERMA 70 (SCL) ANTIBODY(Performed 06/17/2023) * CHROMATIN ANTIBODY(Performed 06/17/2023) * SS-A/SS-B (SJOGREN'S) ANTIBODY PANEL(Performed 06/17/2023) * SCOTT (SM)+WEALTH MANAGEMENT CONSULTANT ANTIBODY PANEL(Performed 06/17/2023) * COMPLEMENT TOTAL(Performed 06/17/2023) * URINALYSIS MICROSCOPIC ONLY REFLEXED(Performed 06/17/2023) * URINALYSIS REFLEX MICROSCOPIC REFLEX CULTURE(Performed 06/17/2023) * SMOOTH MUSCLE ANTIBODY(Performed 06/17/2023) * HEPATITIS B SURFACE ANTIGEN W RFLX CONFIRMATION(Performed 06/17/2023) * HEPATITIS C ANTIBODY(Performed 06/17/2023) * COMPLEMENT C3(Performed 06/17/2023) * COMPLEMENT C4(Performed 06/17/2023) * ERYTHROCYTE SEDIMENTATION RATE(Performed 06/17/2023) Performed for Rheumatoid arthritis, involving unspecified site, unspecified whether rheumatoid factor present (HCC), 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 * C-REACTIVE PROTEIN(Performed 06/17/2023) Performed for Rheumatoid arthritis, involving unspecified site, unspecified whether rheumatoid factor present (HCC), 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 * COMPREHENSIVE METABOLIC PANEL(Performed 06/17/2023) Performed for Rheumatoid arthritis, involving unspecified site, unspecified whether rheumatoid factor present (HCC), 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 * CBC W AUTO DIFFERENTIAL(Performed 06/17/2023) Performed for Rheumatoid arthritis, involving unspecified site, unspecified whether rheumatoid factor present (HCC), 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 * CULTURE URINE(Performed 06/17/2023) * RETINAL ANALYSIS OCT(Performed 04/08/2023) Performed for Long-term use 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 * ENGLISH AUTO VISUAL FIELD EXTENDED(Performed 04/08/2023) Performed for Long-term use 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 * URINALYSIS MICROSCOPIC ONLY REFLEXED(Performed 11/22/2022) Performed for Rheumatoid arthritis, involving unspecified site, unspecified whether rheumatoid factor present (HCC), Arthralgia, unspecified joint * URINALYSIS REFLEX MICROSCOPIC REFLEX CULTURE(Performed 11/22/2022) Performed for Rheumatoid arthritis, involving unspecified site, unspecified whether rheumatoid factor present (HCC), Arthralgia, unspecified joint * ERYTHROCYTE SEDIMENTATION RATE(Performed 11/22/2022) Performed for Rheumatoid arthritis, involving unspecified site, unspecified whether rheumatoid factor present (HCC), 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 * C-REACTIVE PROTEIN(Performed 11/22/2022) Performed for Rheumatoid arthritis, involving unspecified site, unspecified whether rheumatoid factor present (HCC), 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 * COMPREHENSIVE METABOLIC PANEL(Performed 11/22/2022) Performed for Rheumatoid arthritis, involving unspecified site, unspecified whether rheumatoid factor present (HCC), 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 * CBC W AUTO DIFFERENTIAL(Performed 11/22/2022) Performed for Rheumatoid arthritis, involving unspecified site, unspecified whether rheumatoid factor present (HCC), 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 * SCOTT/WEALTH MANAGEMENT CONSULTANT (ANIA) ANTIBODY IGG(Performed 11/10/2022) Performed for Rheumatoid arthritis with negative rheumatoid factor, involving unspecified site (HCC), Rheumatoid arthritis, involving unspecified site, unspecified whether rheumatoid factor present (HCC), Arthralgia, unspecified joint * COMPLEMENT ACTIVITY TOTAL (CH50)(Performed 11/10/2022) Performed for Rheumatoid arthritis with negative rheumatoid factor, involving unspecified site (HCC), Rheumatoid arthritis, involving unspecified site, unspecified whether rheumatoid factor present (HCC), Arthralgia, unspecified joint * RANULFO BLOOD SINGLE PATTERN(Performed 11/10/2022) Performed for Rheumatoid arthritis, involving unspecified site, unspecified whether rheumatoid factor present (HCC), Arthralgia, unspecified joint, 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 * RANULFO HEP-2 IGG BY IFA(Performed 11/10/2022) Performed for Rheumatoid arthritis, involving unspecified site, unspecified whether rheumatoid factor present (HCC), Arthralgia, unspecified joint, 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 * DNA ANTIBODY DS CRITHIDIA TITER(Performed 11/10/2022) Performed for Rheumatoid arthritis, involving unspecified site, unspecified whether rheumatoid factor present (HCC), Arthralgia, unspecified joint, 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 * HISTONE ANTIBODY(Performed 11/10/2022) Performed for Rheumatoid arthritis, involving unspecified site, unspecified whether rheumatoid factor present (HCC), Arthralgia, unspecified joint, 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 * COMPLEMENT C4(Performed 11/10/2022) Performed for Rheumatoid arthritis, involving unspecified site, unspecified whether rheumatoid factor present (HCC), Arthralgia, unspecified joint, 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 * COMPLEMENT C3(Performed 11/10/2022) Performed for Rheumatoid arthritis, involving unspecified site, unspecified whether rheumatoid factor present (HCC), Arthralgia, unspecified joint, 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 * SS-B (SJOGREN'S) ANTIBODY(Performed 11/10/2022) Performed for Rheumatoid arthritis, involving unspecified site, unspecified whether rheumatoid factor present (HCC), Arthralgia, unspecified joint, 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 * SCLERODERMA 70 (SCL) ANTIBODY(Performed 11/10/2022) Performed for Rheumatoid arthritis, involving unspecified site, unspecified whether rheumatoid factor present (HCC), Arthralgia, unspecified joint, 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 * SCOTT (SM) ANTIBODY ANIA(Performed 11/10/2022) Performed for Rheumatoid arthritis, involving unspecified site, unspecified whether rheumatoid factor present (HCC), Arthralgia, unspecified joint, 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 * DNA ANTIBODY DOUBLE STRANDED(Performed 11/10/2022) Performed for Rheumatoid arthritis, involving unspecified site, unspecified whether rheumatoid factor present (HCC), Arthralgia, unspecified joint, 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 * CHROMATIN ANTIBODY(Performed 11/10/2022) Performed for Rheumatoid arthritis, involving unspecified site, unspecified whether rheumatoid factor present (HCC), Arthralgia, unspecified joint, 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 * RANULFO BLOOD SCREEN W/REFLEX TITER(Performed 11/10/2022) Performed for Rheumatoid arthritis, involving unspecified site, unspecified whether rheumatoid factor present (HCC), Arthralgia, unspecified joint, 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 * HEPATITIS C ANTIBODY(Performed 11/10/2022) Performed for Rheumatoid arthritis, involving unspecified site, unspecified whether rheumatoid factor present (HCC), Arthralgia, unspecified joint, 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 * QUANTIFERON-TB GOLD PLUS 4-TUBE(Performed 11/10/2022) Performed for Rheumatoid arthritis, involving unspecified site, unspecified whether rheumatoid factor present (HCC), Arthralgia, unspecified joint, 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 * HEPATITIS B SURFACE ANTIGEN W RFLX CONFIRMATION(Performed 11/10/2022) Performed for Rheumatoid arthritis, involving unspecified site, unspecified whether rheumatoid factor present (HCC), Arthralgia, unspecified joint, 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 * ERYTHROCYTE SEDIMENTATION RATE(Performed 11/10/2022) Performed for Rheumatoid arthritis, involving unspecified site, unspecified whether rheumatoid factor present (HCC), Arthralgia, unspecified joint, 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 * C-REACTIVE PROTEIN(Performed 11/10/2022) Performed for Rheumatoid arthritis, involving unspecified site, unspecified whether rheumatoid factor present (HCC), Arthralgia, unspecified joint, 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 * COMPREHENSIVE METABOLIC PANEL(Performed 11/10/2022) Performed for Rheumatoid arthritis, involving unspecified site, unspecified whether rheumatoid factor present (HCC), Arthralgia, unspecified joint, 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 * CBC W AUTO DIFFERENTIAL(Performed 11/10/2022) Performed for Rheumatoid arthritis, involving unspecified site, unspecified whether rheumatoid factor present (HCC), Arthralgia, unspecified joint, 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 * SS-A (SJOGREN'S) 52+60 ANTIBODIES(Performed 11/10/2022) Performed for Rheumatoid arthritis with negative rheumatoid factor, involving unspecified site (HCC) * URINALYSIS REFLEX TO MICROSCOPIC NO CULTURE(Performed 05/05/2022) Performed for Rheumatoid arthritis, involving unspecified site, unspecified whether rheumatoid factor present (HCC), Arthralgia, unspecified joint, 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 * ERYTHROCYTE SEDIMENTATION RATE(Performed 05/05/2022) Performed for Rheumatoid arthritis, involving unspecified site, unspecified whether rheumatoid factor present (HCC), Arthralgia, unspecified joint, 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 * COMPREHENSIVE METABOLIC PANEL(Performed 05/05/2022) Performed for Rheumatoid arthritis, involving unspecified site, unspecified whether rheumatoid factor present (HCC), Arthralgia, unspecified joint, 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 * C-REACTIVE PROTEIN(Performed 05/05/2022) Performed for Rheumatoid arthritis, involving unspecified site, unspecified whether rheumatoid factor present (HCC), Arthralgia, unspecified joint, 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 * CBC W AUTO DIFFERENTIAL(Performed 05/05/2022) Performed for Rheumatoid arthritis, involving unspecified site, unspecified whether rheumatoid factor present (HCC), Arthralgia, unspecified joint, 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 * LDH BLOOD(Performed 05/05/2022) Performed for Rheumatoid arthritis, involving unspecified site, unspecified whether rheumatoid factor present (HCC), 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, 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 * XR CERVICAL SPINE 4 OR 5VW(Performed 05/05/2022) Performed for Rheumatoid arthritis, involving unspecified site, unspecified whether rheumatoid factor present (HCC), Arthralgia, unspecified joint, 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 * XR ELBOW LEFT 3VW OR MORE(Performed 05/05/2022) Performed for Rheumatoid arthritis, involving unspecified site, unspecified whether rheumatoid factor present (HCC), Arthralgia, unspecified joint, 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 * XR ELBOW RIGHT 3VW OR MORE(Performed 05/05/2022) Performed for Rheumatoid arthritis, involving unspecified site, unspecified whether rheumatoid factor present (HCC), Arthralgia, unspecified joint, 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 * XR HAND RIGHT 3VW OR MORE(Performed 05/05/2022) Performed for Rheumatoid arthritis, involving unspecified site, unspecified whether rheumatoid factor present (HCC), Arthralgia, unspecified joint, 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 * XR HAND LEFT 3VW OR MORE(Performed 05/05/2022) Performed for Rheumatoid arthritis, involving unspecified site, unspecified whether rheumatoid factor present (HCC), Arthralgia, unspecified joint, 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 * XR FOOT LEFT 3VW OR MORE(Performed 05/05/2022) Performed for Rheumatoid arthritis, involving unspecified site, unspecified whether rheumatoid factor present (HCC), Arthralgia, unspecified joint, 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 * XR FOOT RIGHT 3VW OR MORE(Performed 05/05/2022) Performed for Rheumatoid arthritis, involving unspecified site, unspecified whether rheumatoid factor present (HCC), Arthralgia, unspecified joint, 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 * XR KNEE RIGHT 4VW OR MORE(Performed 05/05/2022) Performed for Rheumatoid arthritis, involving unspecified site, unspecified whether rheumatoid factor present (HCC), Arthralgia, unspecified joint, 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 * XR KNEE LEFT 4VW OR MORE(Performed 05/05/2022) Performed for Rheumatoid arthritis, involving unspecified site, unspecified whether rheumatoid factor present (HCC), Arthralgia, unspecified joint, 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 * ERYTHROCYTE SEDIMENTATION RATE(Performed 02/03/2022) Performed for Rheumatoid arthritis, involving unspecified site, unspecified whether rheumatoid factor present (HCC), 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, retirement 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, Highrisk medications (not anticoagulants) long-term use * LDH BLOOD(Performed 02/03/2022) Performed for Rheumatoid arthritis, involving unspecified site, unspecified whether rheumatoid factor present (HCC), 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, retirement 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, Highrisk medications (not anticoagulants) long-term use * COMPREHENSIVE METABOLIC PANEL(Performed 02/03/2022) Performed for Rheumatoid arthritis, involving unspecified site, unspecified whether rheumatoid factor present (HCC), 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, retirement 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, Highrisk medications (not anticoagulants) long-term use * CBC W AUTO DIFFERENTIAL(Performed 02/03/2022) Performed for Rheumatoid arthritis, involving unspecified site, unspecified whether rheumatoid factor present (HCC), 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, 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, Highrisk medications (not anticoagulants) long-term use * C-REACTIVE PROTEIN(Performed 02/03/2022) Performed for Rheumatoid arthritis, involving unspecified site, unspecified whether rheumatoid factor present (HCC), 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, retirement 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, Highrisk medications (not anticoagulants) long-term use * URINALYSIS W/MICROSCOPIC NO CULTURE(Performed 02/03/2022) Performed for Rheumatoid arthritis, involving unspecified site, unspecified whether rheumatoid factor present (HCC), 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, 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, Highrisk medications (not anticoagulants) long-term use * ALDOLASE(Performed 02/03/2022) Performed for Rheumatoid arthritis, involving unspecified site, unspecified whether rheumatoid factor present (HCC), 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, 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, Highrisk medications (not anticoagulants) long-term use * URINALYSIS MICROSCOPIC ONLY REFLEXED(Performed 12/21/2021) Performed for Rheumatoid arthritis, involving unspecified site, unspecified whether rheumatoid factor present (HCC), 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, retirement 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 * URINALYSIS W/MICROSCOPIC NO CULTURE(Performed 12/21/2021) Performed for Rheumatoid arthritis, involving unspecified site, unspecified whether rheumatoid factor present (HCC), 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, retirement 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 * ERYTHROCYTE SEDIMENTATION RATE(Performed 12/21/2021) Performed for Rheumatoid arthritis, involving unspecified site, unspecified whether rheumatoid factor present (HCC), 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, retirement 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 * C-REACTIVE PROTEIN(Performed 12/21/2021) Performed for Rheumatoid arthritis, involving unspecified site, unspecified whether rheumatoid factor present (HCC), 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, retirement 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 * CBC W AUTO DIFFERENTIAL(Performed 12/21/2021) Performed for Rheumatoid arthritis, involving unspecified site, unspecified whether rheumatoid factor present (HCC), 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, retirement 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 * COMPREHENSIVE METABOLIC PANEL(Performed 12/21/2021) Performed for Rheumatoid arthritis, involving unspecified site, unspecified whether rheumatoid factor present (HCC), 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, retirement 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 * LDH BLOOD(Performed 11/04/2021) Performed for Rheumatoid arthritis, involving unspecified site, unspecified whether rheumatoid factor present (HCC) * ALDOLASE(Performed 11/04/2021) Performed for Rheumatoid arthritis, involving unspecified site, unspecified whether rheumatoid factor present (HCC) * URINALYSIS W/MICROSCOPIC NO CULTURE(Performed 11/04/2021) Performed for Rheumatoid arthritis, involving unspecified site, unspecified whether rheumatoid factor present (HCC), 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, retirement 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 * CBC W AUTO DIFFERENTIAL(Performed 11/04/2021) Performed for Rheumatoid arthritis, involving unspecified site, unspecified whether rheumatoid factor present (HCC), 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, 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 * ERYTHROCYTE SEDIMENTATION RATE(Performed 11/04/2021) Performed for Rheumatoid arthritis, involving unspecified site, unspecified whether rheumatoid factor present (HCC), 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, 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 * C-REACTIVE PROTEIN(Performed 11/04/2021) Performed for Rheumatoid arthritis, involving unspecified site, unspecified whether rheumatoid factor present (HCC), 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, 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 * CK BLOOD(Performed 11/04/2021) Performed for Rheumatoid arthritis, involving unspecified site, unspecified whether rheumatoid factor present (HCC), 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, 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 * XR KNEE RIGHT 3VW(Performed 11/04/2021) Performed for Rheumatoid arthritis, involving unspecified site, unspecified whether rheumatoid factor present (HCC), 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, retirement 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 * C-REACTIVE PROTEIN(Performed 09/16/2021) * URINALYSIS MICROSCOPIC ONLY REFLEXED(Performed 09/16/2021) * URINALYSIS REFLEX TO MICROSCOPIC NO CULTURE(Performed 09/16/2021) * ERYTHROCYTE SEDIMENTATION RATE(Performed 09/16/2021) * COMPREHENSIVE METABOLIC PANEL(Performed 09/16/2021) * CBC W AUTO DIFFERENTIAL(Performed 09/16/2021) * URINALYSIS W/MICROSCOPIC NO CULTURE(Performed 07/22/2021) Performed for Rheumatoid arthritis, involving unspecified site, unspecified whether rheumatoid factor present (HCC), 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 * LDH BLOOD(Performed 07/22/2021) Performed for Rheumatoid arthritis, involving unspecified site, unspecified whether rheumatoid factor present (HCC), 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 * CK BLOOD(Performed 07/22/2021) Performed for Rheumatoid arthritis, involving unspecified site, unspecified whether rheumatoid factor present (HCC), 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 * ALDOLASE(Performed 07/22/2021) Performed for Rheumatoid arthritis, involving unspecified site, unspecified whether rheumatoid factor present (HCC), 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 * HEPATITIS C ANTIBODY(Performed 07/22/2021) Performed for Rheumatoid arthritis, involving unspecified site, unspecified whether rheumatoid factor present (HCC), 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 * HEPATITIS B SURFACE ANTIGEN W RFLX CONFIRMATION(Performed 07/22/2021) Performed for Rheumatoid arthritis, involving unspecified site, unspecified whether rheumatoid factor present (HCC), 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 * HEPATITIS B SURFACE ANTIBODY(Performed 07/22/2021) Performed for Rheumatoid arthritis, involving unspecified site, unspecified whether rheumatoid factor present ([facility]), 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 * HEPATITIS B CORE ANTIBODY TOTAL(Performed 07/22/2021) Performed for Rheumatoid arthritis, involving unspecified site, unspecified whether rheumatoid factor present ([facility]), 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 * QUANTIFERON-TB GOLD PLUS 4-TUBE(Performed 07/22/2021) Performed for Rheumatoid arthritis, involving unspecified site, unspecified whether rheumatoid factor present ([facility]), 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 * VITAMIN D 25-HYDROXY(Performed 07/22/2021) Performed for Rheumatoid arthritis, involving unspecified site, unspecified whether rheumatoid factor present ([facility]), 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 * ERYTHROCYTE SEDIMENTATION RATE(Performed 07/22/2021) Performed for Rheumatoid arthritis, involving unspecified site, unspecified whether rheumatoid factor present ([facility]), 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 * C-REACTIVE PROTEIN(Performed 07/22/2021) Performed for Rheumatoid arthritis, involving unspecified site, unspecified whether rheumatoid factor present ([facility]), 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 * COMPREHENSIVE METABOLIC PANEL(Performed 07/22/2021) Performed for Rheumatoid arthritis, involving unspecified site, unspecified whether rheumatoid factor present ([facility]), 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 * CBC W AUTO DIFFERENTIAL(Performed 07/22/2021) Performed for Rheumatoid arthritis, involving unspecified site, unspecified whether rheumatoid factor present ([facility]), 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 * RHEUMATOID FACTOR BLOOD QUANTITATIVE(Performed 07/22/2021) Performed for Rheumatoid arthritis, involving unspecified site, unspecified whether rheumatoid factor present ([facility]), 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 * CYCLIC CITRUL PEPTIDE ANTIBODY IGG/IGA (CCP)(Performed 07/22/2021) Performed for Rheumatoid arthritis, involving unspecified site, unspecified whether rheumatoid factor present ([facility]), 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 * XR ELBOW LEFT 3VW OR MORE(Performed 07/22/2021) Performed for Rheumatoid arthritis, involving unspecified site, unspecified whether rheumatoid factor present ([facility]), 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 * XR ELBOW RIGHT 3VW OR MORE(Performed 07/22/2021) Performed for Rheumatoid arthritis, involving unspecified site, unspecified whether rheumatoid factor present ([facility]), 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 * XR SHOULDER RIGHT 2VW OR MORE(Performed 07/22/2021) Performed for Rheumatoid arthritis, involving unspecified site, unspecified whether rheumatoid factor present (HCC), 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 * XR SHOULDER LEFT 2VW OR MORE(Performed 07/22/2021) Performed for Rheumatoid arthritis, involving unspecified site, unspecified whether rheumatoid factor present (HCC), 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 * XR KNEE RIGHT 3VW(Performed 07/22/2021) Performed for Rheumatoid arthritis, involving unspecified site, unspecified whether rheumatoid factor present (HCC), 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 * XR KNEE LEFT 3VW(Performed 07/22/2021) Performed for Rheumatoid arthritis, involving unspecified site, unspecified whether rheumatoid factor present (HCC), 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 * XR CERVICAL SPINE 4 OR 5VW(Performed 07/22/2021) Performed for Rheumatoid arthritis, involving unspecified site, unspecified whether rheumatoid factor present (HCC), 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 * XR HAND RIGHT 3VW OR MORE(Performed 07/22/2021) Performed for Rheumatoid arthritis, involving unspecified site, unspecified whether rheumatoid factor present (HCC), 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 * XR HAND LEFT 3VW OR MORE(Performed 07/22/2021) Performed for Rheumatoid arthritis, involving unspecified site, unspecified whether rheumatoid factor present (HCC), 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 * XR FOOT LEFT 3VW OR MORE(Performed 07/22/2021) Performed for Rheumatoid arthritis, involving unspecified site, unspecified whether rheumatoid factor present (HCC), 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 * XR FOOT RIGHT 3VW OR MORE(Performed 07/22/2021) Performed for Rheumatoid arthritis, involving unspecified site, unspecified whether rheumatoid factor present (HCC), 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 * XR CHEST 2VW(Performed 07/22/2021) Performed for Rheumatoid arthritis, involving unspecified site, unspecified whether rheumatoid factor present (HCC), 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 Results * C-REACTIVE PROTEIN (07/30/2024 9:30 AM CDT) Only the most recent of14 resultswithin the time period is included. Pathologist [facility] C-Reactive Protein <0.5 <=0.5 mg/dL 07/30/2024 10:28 AM CDT [facility] Blood BLOOD SPECIMEN / Unknown Venipuncture / Unknown 07/30/2024 9:30 AM CDT 07/30/2024 9:55 AM CDT Catherine Hoffman MD LAB - CHEMISTR Y ORDERABLES Performing Organization Address City/[facility]/ZIP Co de Phone Number [address] [address], [facility] [phone] * (ABNORMAL) ERYTHROCYTE SEDIMENTATION RATE (07/30/2024 9:30 AM CDT) Only the most recent of14 resultswithin the time period is included. Pathologist [facility] Erythrocyte Sedimentation Rate Westergren 48(H) 0 - 30 MM/HR 07/30/2024 10:17 AM CDT [facility] Blood BLOOD SPECIMEN / Unknown Venipuncture / Unknown 07/30/2024 9:30 AM CDT 07/30/2024 9:55 AM CDT Catherine Hoffman MD LAB - HEMATOLO GY ORDERABLES Performing Organization Address [facility] Co de Phone Number [address] [address], [facility] [phone] * (ABNORMAL) CBC WITH DIFFERENTIAL (07/30/2024 9:30 AM CDT) Only the most recent of14 resultswithin the time period is included. Pathologist [facility] WBC 6.2 4.0 - 10.7 x10E9/L 07/30/2024 9:59 AM CDT [facility] RBC Count 4.95 3.90 - 5.20 x10E12/L 07/30/2024 9:59 AM CDT [facility] Hemoglobin 14.8 11.9 - 15.8 g/dL 07/30/2024 9:59 AM CDT [facility] Hematocrit 44.9 34.8 - 46.1 % 07/30/2024 9:59 AM CDT [facility] MCV 90.7 80.0 - 98.0 fL 07/30/2024 9:59 AM CDT [facility] MCH 29.9 26.7 - 33.6 pg 07/30/2024 9:59 AM CDT [facility] MCHC 33.0 31.7 - 36.3 g/dL 07/30/2024 9:59 AM [facility] RDW-CV 13.6 11.3 - 14.8 % 07/30/2024 9:59 AM [facility] Platelet Count 424(H) 150 - 420 x10E9/L 07/30/2024 9:59 AM [facility] MPV 10.2 7.8 - 11.4 fL 07/30/2024 9:59 AM [facility] Preliminary Absolute Neutrophil 4.32 1.60 - 7.50 x10E9/L 07/30/2024 9:59 AM [facility] Neutrophil % 70.2 41.0 - 74.0 % 07/30/2024 9:59 AM [facility] Lymphocyte % 13.3(L) 17.0 - 47.0 % 07/30/2024 9:59 AM [facility] Monocyte % 8.8 3.0 - 11.0 % 07/30/2024 9:59 AM [facility] Eosinophil % 6.5 0.0 - 7.0 % 07/30/2024 9:59 AM [facility] Basophil % 1.0 0.0 - 1.6 % 07/30/2024 9:59 AM [facility] Immature Granulocytes % 0.2 0.0 - 1.0 % 07/30/2024 9:59 AM [facility] Neutrophil Absolute 4.32 1.60 - 7.50 x10E9/L 07/30/2024 9:59 AM [facility] Lymphocyte Absolute 0.82(L) 1.00 - 4.40 x10E9/L 07/30/2024 9:59 AM [facility] Monocyte Absolute 0.54 0.15 - 1.00 x10E9/L 07/30/2024 9:59 AM [facility] Eosinophil Absolute 0.40 0.00 - 0.60 x10E9/L 07/30/2024 9:59 AM [facility] Basophil Absolute 0.06 0.00 - 0.13 x10E9/L 07/30/2024 9:59 AM [facility] Blood BLOOD SPECIMEN / Unknown Venipuncture / Unknown 07/30/2024 9:30 AM CDT 07/30/2024 9:55 AM CDT Catherine Hoffman MD LAB - HEMATOLO GY ORDERABLES [facility] [address] [place] [address], [facility] [phone] * (ABNORMAL) COMPREHENSIVE METABOLIC PANEL (07/30/2024 9:30 AM CDT) Only the most recent of13 resultswithin the time period is included. BUN 15 7 - 26 mg/dL 07/30/2024 10:42 AM [facility] Creatinine 0.75 0.56 - 0.96 mg/dL 07/30/2024 10:42 AM [facility] Sodium 140 136 - 145 mmol/L 07/30/2024 10:42 AM [facility] Potassium 4.1 3.5 - 4.5 mmol/L 07/30/2024 10:42 AM [facility] Chloride 107 98 - 107 mmol/L 07/30/2024 10:42 AM [facility] CO2 24 22 - 29 mmol/L 07/30/2024 10:42 AM [facility] Glucose 90 70 - 115 mg/dL 07/30/2024 10:42 AM [facility] Calcium 9.4 8.4 - 10.2 mg/dL 07/30/2024 10:42 AM [facility] Protein Total 7.5 6.0 - 8.3 g/dL 07/30/2024 10:42 AM [facility] Albumin 4.0 3.4 - 5.0 g/dL 07/30/2024 10:42 AM [facility] Bilirubin Total 0.4 0.2 - 1.2 mg/dL 07/30/2024 10:42 AM [facility] Alkaline Phosphatase 97 40 - 150 U/L 07/30/2024 10:42 AM [facility] ALT 15 5 - 55 U/L 07/30/2024 10:42 AM [facility] AST 20 5 - 34 U/L 07/30/2024 10:42 AM CDT [facility] Anion Gap 9 6 - 16 07/30/2024 10:42 AM CDT [facility] BUN/Creatinine Ratio 20 7 - 23 07/30/2024 10:42 AM T [facility] Osmolality Calculated 290 275 - 295 mOsm/kg 07/30/2024 10:42 AM T [facility] Albumin/Globulin Ratio 1.1 1.1 - 2.3 07/30/2024 10:42 AM T [facility] eGFR by CKD-EPI 88(L) >=90 mL/min/1.7 3 m2 07/30/2024 10:42 AM CDT [facility] Blood BLOOD SPECIMEN / Unknown Venipuncture / Unknown 07/30/2024 9:30 AM CDT 07/30/2024 9:55 AM CDT Catherine Hoffman MD LAB - CHEMISTR Y ORDERABLES Performing Organization Address City/[facility]/ZIP Co de Phone Number [address] [address], [facility] [phone] * (ABNORMAL) IGM BLOOD (07/30/2024 9:30 AM CDT) Only the most recent of3 resultswithin the time period is included. IgM 35(L) 37 - 286 mg/dL 07/30/2024 11:26 AM CDT [facility] Blood BLOOD SPECIMEN / Unknown Venipuncture / Unknown 07/30/2024 9:30 AM CDT 07/30/2024 10:32 AM CDT Catherine Hoffman MD LAB - CHEMISTR Y ORDERABLES [address] [address], [facility] [phone] * IGG BLOOD (07/30/2024 9:30 AM CDT) Only the most recent of3 resultswithin the time period is included. IgG 1,182 767 - 1,590 mg/dL 07/30/2024 11:26 AM CDT [facility] Blood BLOOD SPECIMEN / Unknown Venipuncture / Unknown 07/30/2024 9:30 AM CDT 07/30/2024 10:32 AM CDT Catherine Hoffman MD LAB - CHEMISTR Y ORDERABLES [address] [address], [place] [phone] * IGA BLOOD (07/30/2024 9:30 AM CDT) Only the most recent of3 resultswithin the time period is included. IgA 250 61 - 356 mg/dL 07/30/2024 11:26 AM CDT [facility] Blood BLOOD SPECIMEN / Unknown Venipuncture / Unknown 07/30/2024 9:30 AM CDT 07/30/2024 10:32 AM CDT Catherine Hoffman MD LAB - CHEMISTR Y ORDERABLES Performing Organization Address City/[facility] Co de Phone Number [address] [address], [facility] [phone] * XR HAND LEFT 3VW OR MORE (02/07/2024 12:35 PM CDT) Only the most recent of3 resultswithin the time period is included. 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 > Interpreting Provider: Boogie Sears MD on 02/07/2024 1:30 PM Narrative 02/07/2024 1:30 PM CDT PROCEDURE: ??XR HAND RIGHT 3VW OR MORE, XR HAND LEFT 3VW OR MORE DATE/TIME OF EXAM: ??02/07/2024 12:35 PM CLINICAL INFORMATION: None relevant/not provided if blank. Indication: M05.79: Rheumatoid arthritis involving multiple sites with positive rheumatoid factor (HCC) Additional History: COMPARISON: 05/05/2022 right and left hand x-rays. FINDINGS: Right hand: A ring is present on the fourth finger. There is no fracture or dislocation. There is arthritis at the second through fifth metacarpophalangeal joints with progression of erosions. There is severe subluxation and ulnar deviation at these joints, progressed. There is mild arthritis at several interphalangeal joints and in the wrist with a few scattered erosions. Erosion of the ulnar styloid, progressed. The bones are osteopenic. There is mild soft tissue swelling. Left hand: There is no fracture or dislocation. The fourth and fifth metacarpophalangeal joints are flexed on all the images limiting evaluation. Multiple interphalangeal joints are also not well evaluated due to positioning. There is arthritis of the second and third metacarpophalangeal joints with erosions, progressed. There is severe subluxation and ulnar deviation at the second and third metacarpophalangeal joints, progressed. There is erosion of the ulnar styloid process, progressed. There is mild arthritis in the wrist. Osteopenia and soft tissue swelling are noted. Procedure Note Boogie Sears MD - 02/07/2024 PROCEDURE: XR HAND RIGHT 3VW OR MORE, XR HAND LEFT 3VW OR MORE DATE/TIME OF EXAM: 02/07/2024 12:35 PM CLINICAL INFORMATION: None relevant/not provided if blank. Indication: M05.79: Rheumatoid arthritis involving multiple sites with positive rheumatoid factor (HCC) Additional History: COMPARISON: 05/05/2022 right and left hand x-rays. FINDINGS: Right hand: A ring is present on the fourth finger. There is no fracture or dislocation. There is arthritis at the second through fifth metacarpophalangeal joints with progression of erosions. There is severe subluxation and ulnar deviation at these joints, progressed. There ismild arthritis at several interphalangeal joints and in the wrist with a few scattered erosions. Erosion of the ulnar styloid, progressed. The bonesare osteopenic. There is mild soft tissue swelling. Left hand: There is no fracture or dislocation. The fourth and fifth metacarpophalangeal joints are flexed on all the images limiting evaluation. Multiple interphalangeal joints are also not well evaluateddue to positioning. There is arthritis of the second and third metacarpophalangeal joints with erosions, progressed. There is severe subluxation and ulnar deviation at the second and thirdmetacarpophalangeal joints, progressed. There is erosion of the ulnar styloid process, progressed. There is mild arthritis in the wrist. Osteopenia and soft tissue swelling are noted. 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 > Interpreting Provider: Boogie Sears MD on 02/07/2024 1:30 PM Pepe Witt MD DIAGNOSTIC IMAGING O RDERABLES * XR HAND RIGHT 3VW OR MORE (02/07/2024 12:35 PM CDT) Only the most recent of3 resultswithin the time period is included. 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 > Interpreting Provider: Boogie Sears MD on 02/07/2024 1:30 PM Narrative 02/07/2024 1:30 PM CDT PROCEDURE: ??XR HAND RIGHT 3VW OR MORE, XR HAND LEFT 3VW OR MORE DATE/TIME OF EXAM: ??02/07/2024 12:35 PM CLINICAL INFORMATION: None relevant/not provided if blank. Indication: M05.79: Rheumatoid arthritis involving multiple sites with positive rheumatoid factor (HCC) Additional History: COMPARISON: 05/05/2022 right and left hand x-rays. FINDINGS: Right hand: A ring is present on the fourth finger. There is no fracture or dislocation. There is arthritis at the second through fifth metacarpophalangeal joints with progression of erosions. There is severe subluxation and ulnar deviation at these joints, progressed. There is mild arthritis at several interphalangeal joints and in the wrist with a few scattered erosions. Erosion of the ulnar styloid, progressed. The bones are osteopenic. There is mild soft tissue swelling. Left hand: There is no fracture or dislocation. The fourth and fifth metacarpophalangeal joints are flexed on all the images limiting evaluation. Multiple interphalangeal joints are also not well evaluated due to positioning. There is arthritis of the second and third metacarpophalangeal joints with erosions, progressed. There is severe subluxation and ulnar deviation at the second and third metacarpophalangeal joints, progressed. There is erosion of the ulnar styloid process, progressed. There is mild arthritis in the wrist. Osteopenia and soft tissue swelling are noted. Procedure Note Boogie Sears MD - 02/07/2024 PROCEDURE: XR HAND RIGHT 3VW OR MORE, XR HAND LEFT 3VW OR MORE DATE/TIME OF EXAM: 02/07/2024 12:35 PM CLINICAL INFORMATION: None relevant/not provided if blank. Indication: M05.79: Rheumatoid arthritis involving multiple sites with positive rheumatoid factor (HCC) Additional History: COMPARISON: 05/05/2022 right and left hand x-rays. FINDINGS: Right hand: A ring is present on the fourth finger. There is no fracture or dislocation. There is arthritis at the second through fifth metacarpophalangeal joints with progression of erosions. There is severe subluxation and ulnar deviation at these joints, progressed. There ismild arthritis at several interphalangeal joints and in the wrist with a few scattered erosions. Erosion of the ulnar styloid, progressed. The bonesare osteopenic. There is mild soft tissue swelling. Left hand: There is no fracture or dislocation. The fourth and fifth metacarpophalangeal joints are flexed on all the images limiting evaluation. Multiple interphalangeal joints are also not well evaluateddue to positioning. There is arthritis of the second and third metacarpophalangeal joints with erosions, progressed. There is severe subluxation and ulnar deviation at the second and thirdmetacarpophalangeal joints, progressed. There is erosion of the ulnar styloid process, progressed. There is mild arthritis in the wrist. Osteopenia and soft tissue swelling are noted. 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 > Interpreting Provider: Boogie Sears MD on 02/07/2024 1:30 PM Pepe Witt MD DIAGNOSTIC IMAGING O RDERABLES * LAB RESULTS ORDER (10/19/2023) 10/19/2023 Narrative 10/19/2023 Ordered by an unspecified provider. Scanned Document LAB - THERAPEUTIC DR PATHAK MONITORING ORDERABLES * QUANTIFERON TB-GOLD (10/14/2023 1:13 PM CLERICAL PRODUCTION WORKER) Only the most recent of2 resultswithin the time period is included. QuantiFERON Incubation Incubation performed. [facility] INSURANCE BILL QuantiFERON Criteria [facility] INSURANCE BILL Comment: QuantiFERON-TB Gold Plus is a qualitative indirect test for M tuberculosis infection (including disease) and is intended for use in conjunction with risk assessment, radiography, and other medical and diagnostic evaluations. The QuantiFERON-TB Gold Plus result is determined by subtracting the Nil value from either TB antigen (Ag) value. The Mitogen tube serves as a control for the test. QuantiFERON TB1 Ag Value 0.00 IU/mL [facility] INSURANCE BILL QuantiFERON TB2 Ag Value 0.00 IU/mL [facility] INSURANCE BILL QuantiFERON Nil Value 0.00 IU/mL [facility] INSURANCE BILL QuantiFERON Mitogen Value 0.90 IU/mL [facility] INSURANCE BILL QuantiFERON-TB Gold Plus Negative Negative [facility] INSURANCE BILL Comment: No response to M tuberculosis antigens detected. Infection with M tuberculosis is unlikely, but high risk individuals should be considered for additional testing (ATS/IDSA/CDC Clinical Practice Guidelines, 2017). The reference range is an Antigen minus Nil result of <0.35 IU/mL. Chemiluminescence immunoassay methodology 10/14/2023 1:13 PM CLERICAL PRODUCTION WORKER 10/14/2023 Narrative [facility] INSURANCE BILL - 10/19/2023 7:10 AM CLERICAL PRODUCTION WORKER A courtesy copy of this report has been sent to [phone] Resulting Agency Comment Lab Testing performed at: [email or web address] [place] [address] [facility] ??[facility] [phone] Catherine Hoffman MD LAB - CHEMISTR Y ORDERABLES [facility] INSURANCE BILL [address] [place] [address] * (ABNORMAL) URINALYSIS W/MICROSCOPIC REFLEX TO CULTURE (07/21/2023 9:55 AM [facility]) Color UA Yellow Straw, Yellow 07/21/2023 10:17 AM [facility] Clarity UA t Cloudy(A) Clear 07/21/2023 10:17 AM [facility] Specific [place]forth UA 1.013 1.005 - 1.030 07/21/2023 10:17 AM [facility] pH UA 5.0 5.0 - 8.0 pH 07/21/2023 10:17 AM [facility] Protein UA Negative Negative 07/21/2023 10:17 AM [facility] Glucose UA Negative Negative 07/21/2023 10:17 AM [facility] Ketone UA Negative Negative 07/21/2023 10:17 AM [facility] Bilirubin UA Negative Negative 07/21/2023 10:17 AM [facility] Blood UA Negative Negative 07/21/2023 10:17 AM [facility] Nitrite UA Negative Negative 07/21/2023 10:17 AM [facility] Leukocyte Esterase 1+(A) Negative 07/21/2023 10:17 AM [facility] Urobilinogen UA Negative Negative mg/dL 07/21/2023 10:17 AM [facility] RBC UA 3-5 None Seen, 0-2, 3-5 /HPF 07/21/2023 10:17 AM [facility] WBC UA 6-10(A) None Seen, 0-5 /HPF 07/21/2023 10:17 AM [facility] Squamous Epithelial Cells UA 3-5 None Seen, 0-2, 3-5 /HPF 07/21/2023 10:17 AM [facility] Mucus UA 1+ /LPF 07/21/2023 10:17 AM [facility] Urine URINE SPECIMEN OBTAINED BY CLEAN CATCH PROCEDURE / Unknown Collection / Unknown 07/21/2023 9:55 AM CDT 07/21/2023 9:59 AM [facility] - 07/21/2023 10:17 AM CDT Lab Status, Culture Reflex Indicated. Catherine Hoffman MD LAB - URINALYS IS ORDERABLES [facility] [address] [place] [address], [place] [phone] * CULTURE URINE (07/21/2023 9:55 AM CDT) Only the most recent of2 resultswithin the time period is included. Culture Urine No growth (<100 CFU/mL) SHERRI 07/22/2023 2:45 PM CDT [facility] Urine URINE SPECIMEN OBTAINED BY CLEAN CATCH PROCEDURE / Unknown Collection / Unknown 07/21/2023 9:55 AM CDT 07/21/2023 10:17 AM CDT Catherine Hoffman MD LAB - MICROBIO LOGY ORDERABLES Performing Organization Address City/[facility]/ZIP Co de Phone Number [facility] [address] [place] [address], [facility] [phone] * (ABNORMAL) URINALYSIS MICROSCOPIC ONLY REFLEXED (06/17/2023 4:11 PM CDT) Only the most recent of4 resultswithin the time period is included. WBC UA 0-5 0 - 5 /hpf [facility] INSURANCE BILL RBC UA 0-2 0 - 2 /hpf [facility] INSURANCE BILL Epithelial Cells (non renal) >10(A) 0 - 10 /hpf [facility] INSURANCE BILL Epithelial Cells (renal) NOT AVAILABLE [facility] INSURANCE BILL Comment:Result cannot be obt ained for this observation. Casts ua None seen None seen /lpf [facility] INSURANCE BILL Casts UA NOT AVAILABLE [facility] INSURANCE BILL Comment:Result cannot be obt ained for this observation. Crystals UA NOT AVAILABLE [facility] INSURANCE BILL Comment:Result cannot be obt ained for this observation. Crystals UA NOT AVAILABLE [facility] INSURANCE BILL Comment:Result cannot be obt ained for this observation. Mucus UA NOT AVAILABLE [facility] INSURANCE BILL Comment:Result cannot be obt ained for this observation. Bacteria UA Few None seen/Few [facility] INSURANCE BILL Yeast UA NOT AVAILABLE [facility] INSURANCE BILL Comment:Result cannot be obt ained for this observation. Trichomonas UA NOT AVAILABLE [facility] INSURANCE BILL Comment:Result cannot be obt ained for this observation. Comment Urine NOT AVAILABLE [facility] INSURANCE BILL Comment:Result cannot be obt ained for this observation. 06/17/2023 4:11 PM CDT 06/17/2023 Narrative Resulting Agency Comment Lab Testing performed at: [facility] [address] ??[facility] [phone] Catherine Hoffman MD LAB - URINALYS IS ORDERABLES [facility] INSURANCE BILL [address] [place] [address] * SCOTT (SM)+WEALTH MANAGEMENT CONSULTANT ANTIBODY PANEL (06/17/2023 4:11 PM CDT) WEALTH MANAGEMENT CONSULTANT Antibody 0.7 0.0 - 0.9 AI [facility] INSURANCE BILL Scott (ANIA) Antibody <0.2 0.0 - 0.9 AI [facility] INSURANCE BILL 06/17/2023 4:11 PM CDT 06/17/2023 Narrative Resulting Agency Comment Lab Testing performed at: [facility] [address] ??[facility] [phone] Catherine Hoffman MD LAB - SEROLOGY ORDERABLES Performing Organization Address [facility]/ZIP Co de Phone Number [facility] INSURANCE BILL [address] [place] [address] * DNA ANTIBODY DS CRITHIDIA IFA (06/17/2023 4:11 PM CDT) dsDNA Antibody Crithidia IFA Negative Negative [facility] INSURANCE BILL 06/17/2023 4:11 PM CDT 06/17/2023 Narrative Resulting Agency Comment Lab Testing performed at: [facility] [address] ??[facility] [phone] Catherine Hoffman MD LAB - SEROLOGY ORDERABLES Performing Organization Address City/[facility]/ZIP Co de Phone Number [facility] INSURANCE BILL [address] [place] [address] * CHROMATIN ANTIBODY (06/17/2023 4:11 PM CDT) Only the most recent of2 resultswithin the time period is included. Pathologist [facility] Antichromatin Antibodies <0.2 0.0 - 0.9 AI [facility] INSURANCE BILL 06/17/2023 4:11 PM CDT 06/17/2023 Narrative Resulting Agency Comment Lab Testing performed at: [email or web address] [address] ??[facility] [phone] Catherine Hoffman MD LAB - SEROLOGY ORDERABLES [facility] INSURANCE BILL [address] [place] [address] * (ABNORMAL) URINALYSIS REFLEX MICROSCOPIC REFLEX CULTURE (06/17/2023 4:11 PM CDT) Only the most recent of2 resultswithin the time period is included. Pathologist [facility] Specific [place] UA 1.025 1.005 - 1.030 [facility] INSURANCE BILL pH UA 5.5 5.0 - 7.5 [facility] INSURANCE BILL Color UA Yellow Yellow [facility] INSURANCE BILL Appearance Clear Clear [facility] INSURANCE BILL Leukocyte UA 1+(A) Negative [facility] INSURANCE BILL Protein UA Negative Negative/Tr can [facility] INSURANCE BILL Glucose UA Negative Negative [facility] INSURANCE BILL Ketone UA Negative Negative [facility] INSURANCE BILL Occult Blood Urine Negative Negative [facility] INSURANCE BILL Bilirubin UA Negative Negative [facility] INSURANCE BILL Urobilinogen 1.0 0.2 - 1.0 mg/dL [facility] INSURANCE BILL Nitrite UA Negative Negative [facility] INSURANCE BILL Microscopic Examination Urine See below: [facility] INSURANCE BILL Comment:Microscopic was christen cated and was performed. Microscopic Examination Urine NOT AVAILABLE [facility] INSURANCE BILL Comment:Result cannot be obt ained for this observation. Urinalysis Reflex [facility] INSURANCE BILL Comment:This specimen has re flexed to a Urine Culture. 06/17/2023 4:11 PM CDT 06/17/2023 Narrative Resulting Agency Comment Lab Testing performed at: [facility] [place] [address] [place] [address] ??[facility] [phone] Catherine Hoffman MD LAB - URINALYS IS ORDERABLES Performing Organization Address [facility] de Phone Number [facility] INSURANCE BILL [address] [place] [address] * RANULFO W REFLEX DS-DNA+ANIA+SSJ (06/17/2023 4:11 PM CDT) RANULFO Direct Negative Negative [facility] INSURANCE BILL 06/17/2023 4:11 PM CDT 06/17/2023 Narrative Resulting Agency Comment Lab Testing performed at: [address] ??[facility] [phone] Catherine Hoffman MD LAB - SEROLOGY ORDERABLES Performing Organization Address [facility] de Phone Number [facility] INSURANCE BILL [address] [place] [address] * SS-A/SS-B (SJOGREN'S) ANTIBODY PANEL (06/17/2023 4:11 PM CDT) Sjogren's Antibodies (SSA) <0.2 0.0 - 0.9 AI [facility] INSURANCE BILL Sjogren's Antibodies (SSB) <0.2 0.0 - 0.9 AI [facility] INSURANCE BILL 06/17/2023 4:11 PM CDT 06/17/2023 Narrative Resulting Agency Comment Lab Testing performed at: [address] ??[facility] [phone] Catherine Hoffman MD LAB - CHEMISTR Y ORDERABLES Performing Organization Address [facility] de Phone Number [facility] INSURANCE BILL [address] [place] [address] * HISTONE ANTIBODY (06/17/2023 4:11 PM CDT) Only the most recent of2 resultswithin the time period is included. Anti-Histone Antibody 0.6 0.0 - 0.9 Units [facility] INSURANCE BILL Comment: ?Negative ?<1.0 ?Weak Positive ?1.0 - 1.5 ?Moderate Positive ??1.6 - 2.5 ?Strong Positive ? >2.5 06/17/2023 4:11 PM CDT 06/17/2023 Narrative Resulting Agency Comment Lab Testing performed at: [address] ??[facility] [phone] Catherine Hoffman MD LAB - CHEMISTR Y ORDERABLES [facility] INSURANCE BILL [address] [place] [address] * COMPLEMENT TOTAL (06/17/2023 4:11 PM CDT) Complement Total CH50 >60 >41 U/mL [facility] INSURANCE BILL Comment: ?Age ?Male ?Female ? 1 - 30 days ? Not Estab. ? Not Estab. ? 31 days - ??6 months ?>32 ?>20 ?7 months - 17 years ? >39 ?>39 ?>17 years ? >41 ?>41 ?NOTE: The adult ( >17 years ) reference interval ?range is used to flag abnormals on this ?report. If the patient is 17 years old or ?younger, use the table above to determine ?out of range values. 06/17/2023 4:11 PM CDT 06/17/2023 Narrative Resulting Agency Comment Lab Testing performed at: [facility] [address] ??[facility] [phone] Catherine Hoffman MD LAB - CHEMISTR Y ORDERABLES [facility] INSURANCE BILL [address] [place] [address] * SCLERODERMA 70 (SCL) ANTIBODY (06/17/2023 4:11 PM CDT) Only the most recent of2 resultswithin the time period is included. Antiscleroderma -70 Antibody <0.2 0.0 - 0.9 AI [facility] INSURANCE BILL 06/17/2023 4:11 PM CDT 06/17/2023 Narrative Resulting Agency Comment Lab Testing performed at: [facility] [address] ??[place] [phone] Catherine Hoffman MD LAB - CHEMISTR Y ORDERABLES Performing Organization Address [facility] de Phone Number [employer] INSURANCE BILL [address] [place] [address] * DNA ANTIBODY DOUBLE STRANDED (06/17/2023 4:11 PM CDT) Only the most recent of2 resultswithin the time period is included. Anti-dsDNA Quantitative 2 0 - 9 IU/mL [employer] INSURANCE BILL Comment: ?Negative ?<5 ?Equivocal ??5 - 9 ?Positive ?>9 06/17/2023 4:11 PM CDT 06/17/2023 Narrative Resulting Agency Comment Lab Testing performed at: [facility] [address] ??[place] [phone] Catherine Hoffman MD LAB - HEMATOLO GY ORDERABLES Performing Organization Address [facility] de Phone Number [employer] INSURANCE BILL [address] [place] [address] * (ABNORMAL) SMOOTH MUSCLE ANTIBODY (06/17/2023 4:11 PM CDT) Actin (Smooth Muscle) Antibody 29(H) 0 - 19 Units [facility] INS[facility] B[facility] Comment: ?Negative ? 0 - 19 ?Weak positive ? 20 - 30 ?Moderate to strong positive ? >30 ?. ?Actin Antibodies are found in 52-85% of patients with ?autoimmune hepatitis or chronic active hepatitis and ?in 22% of patients with primary biliary cirrhosis. 06/17/2023 4:11 PM CDT 06/17/2023 Narrative Resulting Agency Comment Lab Testing performed at: [address] ??[facility] [phone] Catherine Hoffman MD LAB - SEROLOGY ORDERABLES [facility] INSURANCE BILL [address] [place] [address] * COMPLEMENT C4 (06/17/2023 4:11 PM CDT) Only the most recent of2 resultswithin the time period is included. Complement C4 28 12 - 38 mg/dL [facility] INSURANCE BILL 06/17/2023 4:11 PM CDT 06/17/2023 Narrative Resulting Agency Comment Lab Testing performed at: [facility] [place] [address] ??[facility] [phone] Catherine Hoffman MD LAB - SEROLOGY ORDERABLES Performing Organization Address City/[facility] Co de Phone Number [facility] INSURANCE BILL [address] [place] [address] * HEPATITIS B SURFACE ANTIGEN W RFLX CONFIRMATION (06/17/2023 4:11 PM CDT) Only the most recent of3 resultswithin the time period is included. Hepatitis B Virus Surface Antigen Negative Negative [facility] INSURANCE BILL 06/17/2023 4:11 PM CDT 06/17/2023 Narrative Resulting Agency Comment Lab Testing performed at: [facility] [place] [address] ??[facility] [phone] Catherine Hoffman MD LAB - CHEMISTR Y ORDERABLES Performing Organization Address [facility] de Phone Number [facility] INSURANCE BILL [address] [place] [address] * HEPATITIS C ANTIBODY (06/17/2023 4:11 PM CDT) Only the most recent of3 resultswithin the time period is included. Hepatitis C Antibody Non Reactive Non Reactive [facility] INSURANCE BILL Comment: HCV antibody alone does not differentiate between previously resolved infection and active infection. Equivocal and Reactive HCV antibody results should be followed up with an HCV RNA test to support the diagnosis of active HCV infection. 06/17/2023 4:11 PM CDT 06/17/2023 Narrative Resulting Agency Comment Lab Testing performed at: [facility] [place] [address] ??[facility] [phone] Catherine Hoffman MD LAB - CHEMISTR Y ORDERABLES Performing Organization Address [facility] Co de Phone Number [facility] INSURANCE BILL [address] [place] [address] * COMPLEMENT C3 (06/17/2023 4:11 PM CDT) Only the most recent of2 resultswithin the time period is included. Pathologist [facility] Complement C3 156 82 - 167 mg/dL [facility] INSURANCE BILL 06/17/2023 4:11 PM CDT 06/17/2023 Narrative Resulting Agency Comment Lab Testing performed at: [facility] [address] ??[facility] [phone] Catherine Hoffman MD LAB - CHEMISTR Y ORDERABLES [facility] INSURANCE BILL [address] [place] [address] * RETINAL ANALYSIS OCT (04/08/2023 3:00 PM CDT) Anatomical Region Laterality Modality Head External-Camera Photography Narrative 04/11/2023 8:16 AM CDT OCT of macula shows normal structure with no separation noted. Oleg Becker MD OPHTHALMOLOGY SCHED ORD W PACS * ENGLISH AUTO VISUAL FIELD EXTENDED (04/08/2023 3:00 PM CDT) Anatomical Region Laterality Modality Head External-Camera Photography Narrative 04/11/2023 8:16 AM CDT HVF shows no pattern, focal or widespread defects OD or OS Oleg Becker MD OPHTHALMOLOGY SCHED ORD W PACS * COMPLEMENT ACTIVITY TOTAL (CH50) (11/10/2022 1:20 PM CLERICAL PRODUCTION WORKER) Complement Activity Total CH50 63.1 38.7 - 89.9 U/mL 11/11/2022 10:55 PM CLERICAL PRODUCTION WORKER [facility] ([facility]) Comment: Normal activity in total complement functional assay (CH50) suggests normal presence and function of complement components, C1-C9. However, normal CH50 result can also occur in the presence of low levels of complement components due to excess presence of complement proteins in human serum. If clinically indicated, measurement of individual complement components is recommended. Normal CH50 result with low complement alternate pathway functional (AH50, test code 3515850) activity suggests defects in the alternate pathway. REFERENCE INTERVAL: Complement Activity Total, (CH50) ? 38.6 U/mL or less ..........Low ? 38.7-89.9 U/mL .............Normal ? 90.0 U/mL or greater .......High Performed By: [facility] [address] [place] [address] Web Ui Developer: Eric Tay MD, PhD Blood BLOOD SPECIMEN / Unknown Lab Venipuncture / Unknown 11/10/2022 1:20 PM CLERICAL PRODUCTION WORKER 11/10/2022 1:58 PM CLERICAL PRODUCTION WORKER Catherine Hoffman MD LAB - CHEMISTR Y ORDERABLES [employer] ([facility]) [address] [place] [address] * SCOTT/WEALTH MANAGEMENT CONSULTANT (ANIA) ANTIBODY IGG (11/10/2022 1:20 PM CLERICAL PRODUCTION WORKER) Pathologist [facility] Scott/WEALTH MANAGEMENT CONSULTANT (ANIA) Antibody IgG 4 0 - 19 Units 11/12/2022 7:09 AM CLERICAL PRODUCTION WORKER [facility] ([facility]) Comment: INTERPRETIVE INFORMATION: Scott/WEALTH MANAGEMENT CONSULTANT (ANIA) Antibody, IgG ??19 Units or Less ............. Negative ??20 to 39 Units ............... Weak Positive ??40 to 80 Units ............... Moderate Positive ??81 Units or greater .......... Strong Positive Scott/WEALTH MANAGEMENT CONSULTANT antibodies are frequently seen in patients with mixed connective tissue disease (MCTD) and are also associated with other systemic autoimmune rheumatic diseases (SARDs) such as systemic lupus erythematosus (SLE), systemic sclerosis, and myositis. Antibodies targeting the Scott/WEALTH MANAGEMENT CONSULTANT antigenic complex also recognize Scott antigens, therefore, the Scott antibody response must be considered when interpreting these results. Performed By: [facility] [address] [place] [address] Web Ui Developer: Eric Tay MD, PhD Blood BLOOD SPECIMEN / Unknown Lab Venipuncture / Unknown 11/10/2022 1:20 PM CLERICAL PRODUCTION WORKER 11/10/2022 1:56 PM CLERICAL PRODUCTION WORKER Catherine Hoffman MD LAB - CHEMISTR Y ORDERABLES Performing Organization Address [facility] Co de Phone Number [facility] ([facility]) [address] * (ABNORMAL) RANULFO BLOOD SINGLE PATTERN (11/10/2022 1:19 PM CLERICAL PRODUCTION WORKER) RANULFO Pattern Speckled( A) 11/13/2022 3:19 PM CLERICAL PRODUCTION WORKER [facility] ([facility]) RANULFO Titer 1:320(A) 11/13/2022 3:19 PM CLERICAL PRODUCTION WORKER [facility] ([facility]) Comment: Performed By: [facility] [address] [place] [address] Web Ui Developer: Eric Tay MD, PhD Blood BLOOD SPECIMEN / Unknown Lab Venipuncture / Unknown 11/10/2022 1:19 PM CLERICAL PRODUCTION WORKER 11/10/2022 1:58 PM CLERICAL PRODUCTION WORKER Catherine Hoffman MD LAB - CHEMISTR Y ORDERABLES Performing Organization Address [facility] Phone Number [facility]) [address] [place] [address] * (ABNORMAL) RANULFO HEP-2 IGG BY IFA (11/10/2022 1:19 PM CLERICAL PRODUCTION WORKER) RANULFO HEp-2 IgG Detected (H) <1:80 11/13/2022 3:19 PM CLERICAL PRODUCTION WORKER [employer] ([facility]) RANULFO Interpretive Comment See Note 11/13/2022 3:19 PM CLERICAL PRODUCTION WORKER [facility] ([facility]) Comment: Speckled Pattern Clinical associations: SLE, SSc, SjS, DM, PM, MCTD, UCTD. May also be found in healthy individuals Main autoantibodies: Anti-SSA-52 (Ro52), anti-SSA-60 (Ro60), anti-SS-B/LA, anti-Shawn-1 (anti-Scl-70), Scott, anti-U1-WEALTH MANAGEMENT CONSULTANT, anti-U2-WEALTH MANAGEMENT CONSULTANT, anti-Mi-2, anti-p155/140 (TIF1g), anti-Ku, anti-RNA polymerase, anti-DFS70/LEDGF-P75 List of Abbreviations Antisynthetase syndrome (ARS), chronic active hepatitis (CAH), ?? inflammatory ??myopathies (IM) [dermatomyositis (DM), polymyositis (PM), necrotizing autoimmune myopathy (NAM)], interstitial lung disease (ILD), juvenile idiopathic arthritis (ALPHONSO), mixed connective tissue disease (MCTD), primary biliary cholangitis (PBC), rheumatoid arthritis (RA), systemic autoimmune rheumatic diseases (SARD), Sjogren syndrome (SjS), systemic lupus erythematosus (SLE), systemic sclerosis (SSc), undifferentiated connective tissue disease (UCTD). INTERPRETIVE INFORMATION: RANULFO Interpretive Comment Presence of antinuclear antibodies (RANULFO) is a hallmark feature of systemic autoimmune rheumatic diseases (SARD). However, RANULFO lacks diagnostic specificity and is associated with a variety of diseases (cancers, autoimmune, infectious, and inflammatory conditions) ??and may also occur in healthy individuals in varying prevalence. The lack of diagnostic specificity requires confirmation of positive RANULFO by more specific serologic tests. RANULFO (nuclear reactivity) positive patterns reported include centromere, homogeneous, nuclear dots, nucleolar, or speckled. RANULFO (cytoplasmic reactivity) positive patterns reported include reticular/AMA, discrete/GW body-like, polar/golgi-like, cytoplasmic speckled or rods and rings. All positive patterns are reported to endpoint titers (1:2560). Reported patterns may help guide differential diagnosis, although they may not be specific for individual antibodies or diseases. Mitotic staining patterns not reported. ??Negative results do not necessarily rule out SARD. Performed By: [facility] [address] [place] [address] Web Ui Developer: Eric Tay MD, PhD Blood BLOOD SPECIMEN / Unknown Lab Venipuncture / Unknown 11/10/2022 1:19 PM CLERICAL PRODUCTION WORKER 11/10/2022 1:58 PM CLERICAL PRODUCTION WORKER Catherine Hoffman MD LAB - SEROLOGY ORDERABLES [employer] ([facility]) [address] [place] [address], [facility] * QUANTIFERON-TB GOLD PLUS 4-TUBE (11/10/2022 1:19 PM CLERICAL PRODUCTION WORKER) Only the most recent of2 resultswithin the time period is included. [facility] QuantiFERON NIL 0.02 IU/mL 12:41 AM [facility] [employer] [facility]) Comment: Performed By: [facility] [address] [place] [id number] Web Ui Developer: Eric Tay MD, PhD QuantiFERON TB Gold Plus Negative Negative 11/13/2022 12:41 AM [facility] [employer] ([facility]) Comment: Interpretive Data: Quantiferon TB Gold Plus Interferon gamma release is measured for specimens from each of the four collection tubes. A qualitative result (Negative, Positive, or Indeterminate) is based on interpretation of the four values, NIL, MITOGEN minus NIL (MITOGEN-NIL), TB1 minus NIL (TB1-NIL), and TB2 minus NIL (TB2-NIL). The NIL value represents nonspecific reactivity produced by the patient specimen. The MITOGEN-NIL value serves as the positive control for the patient specimen, demonstrating successful lymphocyte activity. The TB1-NIL tube specifically detects CD4+ lymphocyte reactivity, specifically stimulated by the TB1 antigens. The TB2-NIL tube detects both CD4+ and CD8+ lymphocyte reactivity, stimulated by TB2 antigens. An overall Negative result does not completely rule out TB infection. A false-positive result in the absence of other clinical evidence of TB infection is not uncommon. Refer to: Updated Guidelines for Using Interferon Gamma Release Assays to Detect Mycobacterium tuberculosis Infection --- [place], 2010 (http://www.cdc.gov/mmwr/preview/mmwrhtml/tk9931i3.htm), for more information concerning test performance in low-prevalence populations and use in occupational screening. QuantiFERON Plus TB1 Minus NIL 0.00 0.00 - 0.34 IU/mL 11/13/2022 12:41 AM CLERICAL PRODUCTION WORKER [employer] ([facility]) QuantiFERON Plus TB2 Minus NIL 0.00 0.00 - 0.34 IU/mL 11/13/2022 12:41 AM CLERICAL PRODUCTION WORKER [employer] [facility]) QuantiFERON Mitogen Minus NIL 3.34 IU/mL 11/13/2022 12:41 AM [facility] [employer] [facility]) Blood BLOOD SPECIMEN / Unknown Lab Venipuncture / Unknown 11/10/2022 1:19 PM CLERICAL PRODUCTION WORKER 11/10/2022 1:54 PM CLERICAL PRODUCTION WORKER Catherine Hoffman MD LAB - CHEMISTR Y ORDERABLES Performing Organization Address City/[facility]/ZIP Co de Phone Number [facility]) [address] * DNA ANTIBODY DS CRITHIDIA TITER (11/10/2022 1:19 PM CLERICAL PRODUCTION WORKER) dsDNA Antibody IgG <1:10 <1:10 2022 12:15 PM CLERICAL PRODUCTION WORKER [facility] ([facility]) Comment: INTERPRETIVE INFORMATION: Double-Stranded DNA (dsDNA) Antibody, IgG by IFA (using Crithidia luciliae) Positivity for anti-double stranded DNA (anti-dsDNA) IgG antibody is a diagnostic criterion of systemic lupus erythematosus (SLE). The presence of the anti-dsDNA IgG antibody is identified by IFA titer (Crithidia luciliae indirect fluorescent test [DEBBY]). DEBBY is highly specific for SLE with a sensitivity of 50-60 percent. Some patients with early or inactive SLE may be positive for anti-dsDNA IgG by RENE but negative by DEBBY. If the DEBBY result is negative but the patient has a positive RENE and clinical suspicion remains, consider antinuclear antibody (RANULFO) testing by IFA. Additional information and recommendations for testing may be found at http://www.[employer].com/Topics/AutoimmuneDz/ConnectiveTissueDz/i ndex.html. Performed By: [facility] [address] [place] [address] Web Ui Developer: Eric Tay MD, PhD Blood BLOOD SPECIMEN / Unknown Lab Venipuncture / Unknown 11/10/2022 1:19 PM CLERICAL PRODUCTION WORKER 11/10/2022 1:57 PM CLERICAL PRODUCTION WORKER Catherine Hoffman MD LAB - SEROLOGY ORDERABLES Performing Organization Address [facility] Co de Phone Number [facility]) [address] [place] [address] * SCOTT (SM) ANTIBODY ANIA (11/10/2022 1:19 PM CLERICAL PRODUCTION WORKER) Pathologist [facility] Scott (ANIA) Antibody 0 0 - 40 AU/mL 11/12/2022 6:25 AM CLERICAL PRODUCTION WORKER [employer] ([facility]) Comment: INTERPRETIVE INFORMATION: Scott (ANIA) Antibody, IgG ??29 AU/mL or Less ............. Negative ??30 - 40 AU/mL ................ Equivocal ??41 AU/mL or Greater .......... Positive Scott antibody is highly specific (greater than 90 percent) for systemic lupus erythematosus (SLE) but only occurs in 30-35 percent of SLE cases. The presence of antibodies to Scott has variable associations with SLE clinical manifestations. Performed By: [facility] [address] [place] [address] Web Ui Developer: Eric Tay MD, PhD Blood BLOOD SPECIMEN / Unknown Lab Venipuncture / Unknown 11/10/2022 1:19 PM CLERICAL PRODUCTION WORKER 11/10/2022 1:58 PM CLERICAL PRODUCTION WORKER Catherine Hoffman MD LAB - CHEMISTR Y ORDERABLES [facility]) [address] [place] [address], [facility] * (ABNORMAL) RANULFO BLOOD SCREEN W/REFLEX TITER (11/10/2022 1:19 PM CLERICAL PRODUCTION WORKER) [facility] RANULFO IgG Detected (A) None Detected 11/11/2022 11:44 PM CLERICAL PRODUCTION WORKER [facility] ([facility]) Comment: Antibodies to Anti-Nuclear Antibodies (RANULFO) detected. Additional testing to follow. INTERPRETIVE INFORMATION: Anti-Nuclear Antibodies (RANULFO), IgG by RENE Antinuclear Antibodies (RANULFO), IgG by RENE: RANULFO specimens are screened using enzyme-linked immunosorbent assay (RENE) methodology. All RENE results reported as Detected are further tested by indirect fluorescent assay (IFA) using HEp-2 substrate with an IgG-specific conjugate. The RANULFO RENE screen is designed to detect antibodies against dsDNA, histones, SS-A (Ro), SS-B (La), Scott, Scott/WEALTH MANAGEMENT CONSULTANT, Scl-70, Lucrecia-1, centromeric proteins, other antigens extracted from the HEp-2 cell nucleus. RANULFO RENE assays have been reported to have lower sensitivities than RANULFO IFA for systemic autoimmune rheumatic diseases (SARD). Negative results do not necessarily rule out SARD. Performed By: [facility] [address] [place] [address] Web Ui Developer: Eric Tay MD, PhD Blood BLOOD SPECIMEN / Unknown Lab Venipuncture / Unknown 11/10/2022 1:19 PM CLERICAL PRODUCTION WORKER 11/10/2022 1:58 PM CLERICAL PRODUCTION WORKER Catherine Hoffman MD LAB - CHEMISTR Y ORDERABLES Performing Organization Address [facility] Co de Phone Number [facility]) [address] [place] [address] * SS-B (SJOGREN'S) ANTIBODY (11/10/2022 1:19 PM CLERICAL PRODUCTION WORKER) SS-B Antibody 0 0 - 40 AU/mL 11/12/2022 6:25 AM CLERICAL PRODUCTION WORKER [facility] ([facility]) Comment: INTERPRETIVE INFORMATION: SSB (La) (ANIA) Ab, IgG ??29 AU/mL or Less ............. Negative ??30 - 40 AU/mL ................ Equivocal ??41 AU/mL or Greater .......... Positive SSB (La) antibody is seen in 50-60% of Sjogren syndrome cases and is specific if it is the only ANIA antibody present. 15-25% of patients with systemic lupus erythematosus (SLE) and 5-10% of patients with progressive systemic sclerosis (PSS) also have this antibody. Performed By: [facility] [address] [place] [address] Web Ui Developer: Eric Tay MD, PhD Blood BLOOD SPECIMEN / Unknown Lab Venipuncture / Unknown 11/10/2022 1:19 PM CLERICAL PRODUCTION WORKER 11/10/2022 1:58 PM CLERICAL PRODUCTION WORKER Catherine Hoffman MD LAB - CHEMISTR Y ORDERABLES Performing Organization Address City/[facility]/ZIP Co de Phone Number [facility] [employer] ([facility]) [address] * SS-A (SJOGREN'S) 52+60 ANTIBODIES (11/10/2022 1:14 PM CLERICAL PRODUCTION WORKER) SS-A 52 Antibody 8 0 - 40 AU/mL 11/12/2022 6:25 AM CLERICAL PRODUCTION WORKER [facility] ([facility]) Comment: INTERPRETIVE INFORMATION: SSA-52 (Ro52) (ANIA) Antibody, IgG ??29 AU/mL or Less ............. Negative ??30 - 40 AU/mL ................ Equivocal ??41 AU/mL or Greater .......... Positive SSA-52 (Ro52) and/or SSA-60 (Ro60) antibodies are associated with a diagnosis of Sjogren syndrome, systemic lupus erythematosus (SLE), and systemic sclerosis. SSA-52 antibody overlaps significantly with the major SSc-related antibodies. SSA-52 (Ro52) antibody occurs frequently in patients with inflammatory myopathies, often in the presence of interstitial lung disease. SS-A 60 Antibody 0 0 - 40 AU/mL 11/12/2022 6:25 AM CLERICAL PRODUCTION WORKER [employer] ([facility]) Comment: REFERENCE INTERVAL: SSA-60 (Ro60) (ANIA) Antibody, IgG ??29 AU/mL or Less ............. Negative ??30 - 40 AU/mL ................ Equivocal ??41 AU/mL or Greater .......... Positive Performed By: [facility] [address] [place] [address] Web Ui Developer: Eric Tay MD, PhD Blood BLOOD SPECIMEN / Unknown Lab Venipuncture / Unknown 11/10/2022 1:14 PM CLERICAL PRODUCTION WORKER 11/10/2022 1:58 PM CLERICAL PRODUCTION WORKER Catherine Hoffman MD LAB - CHEMISTR Y ORDERABLES [employer] [facility]) [address] [place] [address], [place] * (ABNORMAL) URINALYSIS REFLEX TO MICROSCOPIC NO CULTURE (05/05/2022 12:10 PM [facility]) Only the most recent of2 resultswithin the time period is included. Color UA Yellow Straw, Yellow 05/05/2022 1:13 PM [facility] Clarity UA Slt Cloudy(A) Clear 05/05/2022 1:13 PM [facility] Specific [place] UA 1.010 1.005 - 1.030 05/05/2022 1:13 PM [facility] pH UA 5.0 5.0 - 8.0 pH 05/05/2022 1:13 PM [facility] Protein UA Negative Negative 05/05/2022 1:13 PM [facility] Glucose UA Negative Negative 05/05/2022 1:13 PM [facility] Ketone UA Negative Negative 05/05/2022 1:13 PM [facility] Bilirubin UA Negative Negative 05/05/2022 1:13 PM [facility] Blood UA Negative Negative 05/05/2022 1:13 PM [facility] Nitrite UA Negative Negative 05/05/2022 1:13 PM [facility] Leukocyte Esterase 2+(A) Negative 05/05/2022 1:13 PM [facility] Urobilinogen UA Negative Negative mg/dL 05/05/2022 1:13 PM [facility] RBC UA 3-5 None Seen, 0-2, 3-5 /HPF 05/05/2022 1:13 PM [facility] WBC UA 0-5 None Seen, 0-5 /HPF 05/05/2022 1:13 PM [facility] Squamous Epithelial Cells UA 3-5 None Seen, 0-2, 3-5 /HPF 05/05/2022 1:13 PM [facility] Mucus UA 1+ /LPF 05/05/2022 1:13 PM [facility] Urine URINE SPECIMEN OBTAINED BY CLEAN CATCH PROCEDURE / Unknown Collection / Unknown 05/05/2022 12:10 PM CDT 05/05/2022 12:43 PM [facility] - 05/05/2022 1:13 PM CDT Catherine Hoffman MD LAB - URINALYS IS ORDERABLES Performing Organization Address City/[facility]/ZIP Co de Phone Number [address] [address], [facility] [phone] * (ABNORMAL) LDH BLOOD (05/05/2022 12:10 PM CDT) Only the most recent of4 resultswithin the time period is included. LDH Total 264(H) 125 - 243 Units/L 05/05/2022 1:24 PM CDT [facility] Blood BLOOD SPECIMEN / Unknown Lab Venipuncture / Unknown 05/05/2022 12:10 PM CDT 05/05/2022 12:47 PM CDT Anny Serna MD LAB - CHEMISTRY ORDERABLES Performing Organization Address [facility]/ZIP Co de Phone Number [address] [address], [facility] [phone] * XR FOOT RIGHT 3VW OR MORE (05/05/2022 11:57 AM CDT) Only the most recent of2 resultswithin the time period is included. 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 No associated significant soft tissue swelling. No bony erosions or destructions are seen. Osteopenia is noted. No acute fractures or dislocations. This report was electronically signed by SHERWIN ASIF MD, FRCR ??on 05/05/2022 12:55 PM . Narrative 05/05/2022 12:55 PM CDT Examination: XR FOOT RIGHT 3VW OR MORE Date: 05/05/2022 11:57 AM Indications: Pain. Comparison: No prior studies for comparison Technique: 3 views of the right foot were obtained. Procedure Note Sherwin Asif MD - 05/05/2022 Examination: XR FOOT RIGHT 3VW OR MORE Date: 05/05/2022 11:57 AM Indications: Pain. Comparison: No prior studies for comparison Technique: 3 views of the right foot were obtained. 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 No associated significant soft tissue swelling. No bony erosions or destructions are seen. Osteopenia is noted. No acute fractures or dislocations. This report was electronically signed by SHERWIN ASIF MD, MILI on 05/05/2022 12:55 PM . Catherine Hoffman MD DIAGNOSTIC IVANA GING ORDERABLES * XR FOOT LEFT 3VW OR MORE (05/05/2022 11:57 AM CDT) Only the most recent of2 resultswithin the time period is included. Anatomical Region Laterality Modality Ankle / Foot Radiographic Ivana ging 05/05/2022 12:5 5 PM CDT Impressions 05/05/2022 12:56 PM CDT Findings/Impression: No bony erosions or destructions are seen. Osteopenia is noted. No acute fractures or dislocations. No significant soft tissue swelling. This report was electronically signed by SHERWIN ASIF MD, FRCR ??on 05/05/2022 12:56 PM . Narrative 05/05/2022 12:56 PM CDT Examination: XR FOOT LEFT 3VW OR MORE Date: 05/05/2022 11:57 AM Indications: Pain. Comparison: No prior studies for comparison Technique: 3 views of the left foot were obtained. Procedure Note Sherwin Asif MD - 05/05/2022 Examination: XR FOOT LEFT 3VW OR MORE Date: 05/05/2022 11:57 AM Indications: Pain. Comparison: No prior studies for comparison Technique: 3 views of the left foot were obtained. Findings/Impression: No bony erosions or destructions are seen. Osteopenia is noted. No acute fractures or dislocations. No significant soft tissue swelling. This report was electronically signed by SHERWIN ASIF MD, FRCR on 05/05/2022 12:56 PM . Catherine Hoffman MD DIAGNOSTIC IVANA GING ORDERABLES * XR KNEE RIGHT 4VW OR MORE (05/05/2022 11:57 AM CDT) Anatomical Region Laterality Modality Lower Extremity Radiographic Ivana ging 05/05/2022 12:4 5 PM CDT Impressions 05/05/2022 12:46 PM CDT Findings/Impression: The joint space grossly preserved. No significant osteophytes seen. Patella and patellofemoral joints are unremarkable. No acute fractures or dislocations. This report was electronically signed by SHERWIN ASIF MD, FRCR ??on 05/05/2022 12:46 PM . Narrative 05/05/2022 12:46 PM CDT Examination: XR KNEE RIGHT 4VW OR MORE Date: 05/05/2022 11:57 AM Indications: Pain. Comparison: No prior studies for comparison Technique: 4 views of the right knee were obtained. Procedure Note Sherwin Asif MD - 05/05/2022 Examination: XR KNEE RIGHT 4VW OR MORE Date: 05/05/2022 11:57 AM Indications: Pain. Comparison: No prior studies for comparison Technique: 4 views of the right knee were obtained. Findings/Impression: The joint space grossly preserved. No significant osteophytes seen. Patella and patellofemoral joints are unremarkable. No acute fracturesor dislocations. This report was electronically signed by SHERWIN ASIF MD, FRCR on 05/05/2022 12:46 PM . Catherine Hoffman MD DIAGNOSTIC IVANA GING ORDERABLES * XR KNEE LEFT 4VW OR MORE (05/05/2022 11:57 AM CDT) Anatomical Region Laterality Modality Lower Extremity Radiographic Ivana ging 05/05/2022 12:4 6 PM CDT Impressions 05/05/2022 12:46 PM CDT Findings/Impression: The joint space grossly preserved. No significant osteophytes seen. Patella and patellofemoral joints are unremarkable. No acute fractures or dislocations. This report was electronically signed by SHERWIN ASIF MD, [facility] ??on 05/05/2022 12:46 PM . Narrative 05/05/2022 12:46 PM CDT Examination: XR KNEE LEFT 4VW OR MORE Date: 05/05/2022 11:57 AM Indications: Pain. Comparison: No prior studies for comparison Technique: 4 views of the left knee were obtained. Procedure Note Sherwin Asif MD - 05/05/2022 Examination: XR KNEE LEFT 4VW OR MORE Date: 05/05/2022 11:57 AM Indications: Pain. Comparison: No prior studies for comparison Technique: 4 views of the left knee were obtained. Findings/Impression: The joint space grossly preserved. No significant osteophytes seen. Patella and patellofemoral joints are unremarkable. No acute fracturesor dislocations. This report was electronically signed by SHERWIN ASIF MD [facility] on 05/05/2022 12:46 PM . Catherine Hoffman MD DIAGNOSTIC IVANA GING ORDERABLES * XR ELBOW RIGHT 3VW OR MORE (05/05/2022 11:57 AM CDT) Only the most recent of2 resultswithin the time period is included. Anatomical Region Laterality Modality Upper Extremity Radiographic Ivana ging 05/05/2022 12:5 2 PM CDT Impressions 05/05/2022 12:53 PM CDT Findings/Impression: No acute fractures or dislocations is seen. No bony erosions or destructions. Joint space grossly preserved. No significant joint effusion or soft tissue swelling is seen. This report was electronically signed by ABDSALONI ASIF MD, FRCR ??on 05/05/2022 12:53 PM . Narrative 05/05/2022 12:53 PM CDT Examination: XR ELBOW RIGHT 3VW OR MORE Date: 05/05/2022 11:57 AM Indications: Pain. Comparison: No prior studies for comparison Technique: 3 views of the right elbow were obtained. Procedure Note Sherwin Asif MD - 05/05/2022 Examination: XR ELBOW RIGHT 3VW OR MORE Date: 05/05/2022 11:57 AM Indications: Pain. Comparison: No prior studies for comparison Technique: 3 views of the right elbow were obtained. Findings/Impression: No acute fractures or dislocations is seen. No bony erosions or destructions. Joint space grossly preserved. No significant jointeffusion or soft tissue swelling is seen. This report was electronically signed by SHERWIN ASIF MD, FRCR on 05/05/2022 12:53 PM . Catherine Hoffman MD DIAGNOSTIC IVANA GING ORDERABLES * XR ELBOW LEFT 3VW OR MORE (05/05/2022 11:57 AM CDT) Only the most recent of2 resultswithin the time period is included. Anatomical Region Laterality Modality Upper Extremity Radiographic Ivana ging 05/05/2022 12:5 3 PM CDT Impressions 05/05/2022 12:54 PM CDT Findings/Impression: No acute fractures or dislocations is seen. No bony erosions or destructions. Joint space grossly preserved. No significant joint effusion or soft tissue swelling is seen. This report was electronically signed by SHERWIN ASIF MD, FRCR ??on 05/05/2022 12:54 PM . Narrative 05/05/2022 12:54 PM CDT Examination: XR ELBOW LEFT 3VW OR MORE Date: 05/05/2022 11:57 AM Indications: Pain. Comparison: No prior studies for comparison Technique: 3 views of the left elbow were obtained. Procedure Note Sherwin Asif MD - 05/05/2022 Examination: XR ELBOW LEFT 3VW OR MORE Date: 05/05/2022 11:57 AM Indications: Pain. Comparison: No prior studies for comparison Technique: 3 views of the left elbow were obtained. Findings/Impression: No acute fractures or dislocations is seen. No bony erosions or destructions. Joint space grossly preserved. No significant jointeffusion or soft tissue swelling is seen. This report was electronically signed by SHERWIN ASIF MD, [facility] on 05/05/2022 12:54 PM . Catherine Hoffman MD DIAGNOSTIC IVANA GING ORDERABLES * XR CERVICAL SPINE 4 OR 5VW (05/05/2022 11:57 AM CDT) Only the most recent of2 resultswithin the time period is included. Anatomical Region Laterality Modality Spine Radiographic Ivana ging 05/05/2022 2:01 PM CDT Impressions 05/06/2022 3:08 PM CDT IMPRESSION: Mild degenerative changes are seen throughout cervical spine, similar to prior study. Mild anterolisthesis of C2 over C3 on the flexion view, unchanged compared to 07/22/2021. Report dictated by Earl Rome MD (vice president lending). IDr. Mackenzie M.D. have personally reviewed and interpreted this examination/study. This report was electronically signed by Mackenzie WALTERS M.D. ??on 05/06/2022 3:08 PM . Narrative 05/06/2022 3:08 PM CDT EXAMINATION: XR CERVICAL SPINE 4 OR 5VW HISTORY: M06.9: Rheumatoid arthritis, involving unspecified site, unspecified whether rheumatoid factor present M25.50: Arthralgia, unspecified joint Z51.81: 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 COMPARISON: X-ray cervical spine 07/22/2021 FINDINGS: The vertebral bodies are normally aligned. There is approximately 1 mm anterolisthesis of C2 over C3 on the flexion view which normalizes on the extension view, unchanged compared to 07/22/2021. No acute fracture or compression deformity is identified. There is mild narrowing of the disc spaces in the lower cervical spine, similar to prior study. There are mild degenerative changes seen throughout cervical spine. The dens is intact and the lateral masses are normally aligned. The predental interval and prevertebral soft tissues are normal. Procedure Note Margy Walters MD - 05/06/2022 EXAMINATION: XR CERVICAL SPINE 4 OR 5VW HISTORY: M06.9: Rheumatoid arthritis, involving unspecified site, unspecified whether rheumatoid factor present M25.50: Arthralgia, unspecified joint Z51.81: 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 COMPARISON: X-ray cervical spine 07/22/2021 FINDINGS: The vertebral bodies are normally aligned. There is approximately 1 mm anterolisthesis of C2 over C3 on the flexion view which normalizes onthe extension view, unchanged compared to 07/22/2021. No acute fracture or compression deformity is identified. There is mild narrowing of the disc spaces in the lower cervical spine, similar to prior study. There aremild degenerative changes seen throughout cervical spine. The dens is intact and the lateral masses are normally aligned. The predental interval and prevertebral soft tissues are normal. IMPRESSION: Mild degenerative changes are seen throughout cervical spine, similar to prior study. Mild anterolisthesis of C2 over C3 on the flexion view, unchanged compared to 07/22/2021. Report dictated by Earl Rome MD (vice president lending). Dr. Mackenzie Anguiano M.D. have personally reviewed and interpretedthis examination/study. This report was electronically signed by Mackenzie WALTERS M.D. on 05/06/2022 3:08 PM . Catherine Hoffman MD DIAGNOSTIC IVANA GING ORDERABLES * (ABNORMAL) URINALYSIS W/MICROSCOPIC NO CULTURE (02/03/2022 10:21 AM CDT) Only the most recent of4 resultswithin the time period is included. Color UA Yellow Straw, Yellow 02/03/2022 11:41 AM CDT [facility] Clarity UA Slt Cloudy(A) Clear 02/03/2022 11:41 AM CDT [facility] Specific [place] UA 1.015 1.005 - 1.030 02/03/2022 11:41 AM [facility] pH UA 5.0 5.0 - 8.0 pH 02/03/2022 11:41 AM [facility] Protein UA Negative Negative 02/03/2022 11:41 AM [facility] Glucose UA Negative Negative 02/03/2022 11:41 AM [facility] Ketone UA Negative Negative 02/03/2022 11:41 AM [facility] Bilirubin UA Negative Negative 02/03/2022 11:41 AM [facility] Blood UA Negative Negative 02/03/2022 11:41 AM [facility] Nitrite UA Negative Negative 02/03/2022 11:41 AM [facility] Leukocyte Esterase 2+(A) Negative 02/03/2022 11:41 AM [facility] Urobilinogen UA Negative Negative mg/dL 02/03/2022 11:41 AM [facility] RBC UA 0-2 None Seen, 0-2, 3-5 /HPF 02/03/2022 11:41 AM [facility] WBC UA 6-10(A) None Seen, 0-5 /HPF 02/03/2022 11:41 AM [facility] [facility] Squamous Epithelial Cells UA 3-5 None Seen, 0-2, 3-5 /HPF 02/03/2022 11:41 AM [facility] Mucus UA 1+ /LPF 02/03/2022 11:41 AM [facility] Hyaline Casts UA 0-2 None Seen, 0-2 /LPF 02/03/2022 11:41 AM [facility] Urine URINE SPECIMEN OBTAINED BY CLEAN CATCH PROCEDURE / Unknown Collection / Unknown 02/03/2022 10:21 AM T 02/03/2022 10:21 AM [facility] - 02/03/2022 11:41 AM [facility] Anny Serna MD LAB - URINALYSI S ORDERABLES [facility] [address] [place] [id number], [facility] [phone] * (ABNORMAL) ALDOLASE (02/03/2022 10:21 AM CDT) Only the most recent of3 resultswithin the time period is included. Aldolase 10.4(H) 1.2 - 7.6 U/L 02/04/2022 5:45 PM CDT [facility] ([facility]) Comment: This specimen is Hemolyzed. This may cause the results to be falsely increased. REFERENCE INTERVAL: Aldolase Access complete set of age- and/or gender-specific reference intervals for this test in the [facility] Test Directory ([facility]). Performed By: [facility] [employer] [address] [place] [address] Web Ui Developer: Beverley Rueda MD Blood BLOOD SPECIMEN / Unknown Lab Venipuncture / Unknown 02/03/2022 10:21 AM CDT 02/03/2022 10:21 AM CDT Anny Serna MD LAB - CHEMISTRY ORDERABLES Performing Organization Address City/[facility]/ZIP Co de Phone Number [facility]) [address] [place] [address] * (ABNORMAL) CK BLOOD (11/04/2021 10:50 AM CLERICAL PRODUCTION WORKER) Only the most recent of2 resultswithin the time period is included. Pathologist [facility] CK Total 23(L) 30 - 200 U/L 11/04/2021 12:06 PM CLERICAL PRODUCTION WORKER [facility] Blood BLOOD SPECIMEN / Unknown Lab Venipuncture / Unknown 11/04/2021 10:50 AM CLERICAL PRODUCTION WORKER 11/04/2021 11:39 AM CLERICAL PRODUCTION WORKER Anny Serna MD LAB - CHEMISTRY ORDERABLES [address] [address], [facility] [phone] * XR KNEE RIGHT 3VW (11/04/2021 10:16 AM CLERICAL PRODUCTION WORKER) Only the most recent of2 resultswithin the time period is included. Anatomical Region Laterality Modality Lower Extremity Radiographic Ivana ging 11/04/2021 10:2 8 AM CLERICAL PRODUCTION WORKER Impressions 11/04/2021 10:49 AM CLERICAL PRODUCTION WORKER IMPRESSION: No significant degenerative or erosive changes. Dictated by Nesha Huggins MD (vice president lending). Dr. BOOGIE Anguiano MD have personally reviewed and interpreted this examination/study. This report was electronically signed by BOOGIE SEARS MD ??on 11/04/2021 10:49 AM . 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 The knee joint space is preserved. There is no effusion. No soft tissue swelling is present. 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 The knee joint space is preserved. There is no effusion. No soft tissue swelling is present. IMPRESSION: No significant degenerative or erosive changes. Dictated by Nesha Huggins MD (vice president lending). Dr. BOOGIE Anguiano MD have personally reviewed and interpreted this examination/study. This report was electronically signed by BOOGIE SEARS MD on11/04/2021 10:49 AM . Anny Serna MD DIAGNOSTIC IMAG ING ORDERABLES * (ABNORMAL) CYCLIC CITRUL PEPTIDE ANTIBODY IGG/IGA (CCP) (07/22/2021 12:53 PM CDT) CCP Antibodies IgG/IgA >250(H) 0 - 19 units 07/24/2021 12:06 AM CDT [facility] ([facility]) Comment: ?Negative ? <20 ?Weak positive ?20 - 39 ?Moderate positive ??40 - 59 ?Strong positive ?>59 Blood BLOOD SPECIMEN / Unknown Lab Venipuncture / Unknown 07/22/2021 12:53 PM CDT 07/22/2021 1:07 PM CDT Narrative [facility] ([facility]) - 07/24/2021 12:06 AM CDT Performed at: ??01 - [facility] [address] ??[id number] Web Ui Developer: Daquan Lovell MD, Phone: ??[phone] Anny Serna MD LAB - SEROLOGY ORDERABLES Performing Organization Address [facility] de Phone Number [facility] ([facility]) [phone] * (ABNORMAL) RHEUMATOID FACTOR BLOOD QUANTITATIVE (07/22/2021 12:53 PM CDT) Rheumatoid Factor 59(H) <30 IU/mL 07/22/2021 2:06 PM CDT [facility] Rheumatoid Factor Screen Positive( A) Negative 07/22/2021 2:06 PM CDT [facility] Blood BLOOD SPECIMEN / Unknown Lab Venipuncture / Unknown 07/22/2021 12:53 PM CDT 07/22/2021 1:07 PM CDT Anny Serna MD LAB - CHEMISTRY ORDERABLES Performing Organization Address [facility] de Phone Number [facility] [address] [place] [address], [facility] [phone] * VITAMIN D 25-HYDROXY (07/22/2021 12:53 PM CDT) [facility] Vitamin D, 25 Hydroxy 38.0 30.0 - 80.0 ng/mL 07/22/2021 1:58 PM CDT [facility] Comment: The recommendations for 25-Hydroxy Vitamin D clinical decision points are as follows: ? Deficient: ? <20.0 ng/mL ? Insufficient: ??20.0 - 29.9 ng/mL ? Sufficient: ? > or =30.0 ng/mL If the 25-Hydroxy Vitamin D results are inconsitent with clinical evidence, it is recommended that follow-up testing using a method such as LC/MS/MS be performed to confirm the result. Reference: ?The Endocrine Society Clinical Practice Guidelines. 2011 ? Blood BLOOD SPECIMEN / Unknown Lab Venipuncture / Unknown 07/22/2021 12:53 PM CDT 07/22/2021 1:14 PM CDT Anny Serna MD LAB - CHEMISTRY ORDERABLES [address] [place] [address], [facility] [phone] * HEPATITIS B SURFACE ANTIBODY (07/22/2021 12:53 PM CDT) [facility] Hepatitis B Virus Surface Antibody Non-react sergio Non-react sergio 07/22/2021 2:25 PM CDT [facility] Comment: < 8 mIU/mL Hepatitis B surface Antibody (HBsAb). Nonreactive for HBsAb - individual is considered not immune to Hepatitis B Virus infection. Hepatitis B Surface Antibody Quantitative 0.0 <8.0 mIU/mL 07/22/2021 2:25 PM CDT [facility] Comment: Hepatitis B Surface Antibody Numeric Result Interpretation: ? Nonreactive: ?<8.0 mIU/mL ? Indeterminate: ??8.0 - 12.0 mIU/mL ? Reactive: ?>12.0 mIU/mL ? Blood BLOOD SPECIMEN / Unknown Lab Venipuncture / Unknown 07/22/2021 12:53 PM CDT 07/22/2021 1:07 PM CDT Anny Serna MD LAB - CHEMISTRY ORDERABLES Performing Organization Address [facility]/ZIP Co de Phone Number [address] [address], [facility] [phone] * HEPATITIS B CORE ANTIBODY (07/22/2021 12:53 PM CDT) HBc Antibody Total Non-reacti ve Non-reacti ve 07/22/2021 2:25 PM CDT [facility] Blood BLOOD SPECIMEN / Unknown Lab Venipuncture / Unknown 07/22/2021 12:53 PM CDT 07/22/2021 1:07 PM CDT Anny Serna MD LAB - CHEMISTRY ORDERABLES Performing Organization Address [facility]/ZIP Co de Phone Number [address] [address], [employer] [phone] * XR KNEE LEFT 3VW (07/22/2021 12:19 PM CDT) Anatomical Region Laterality Modality Lower Extremity Radiographic Ivana ging 07/22/2021 12:3 0 PM CDT Impressions 07/22/2021 12:42 PM CDT IMPRESSION: 1. Right hand: Very mild osteoarthritis. 2. Left hand: No significant arthritis. 3. Right shoulder: Minimal acromioclavicular osteoarthritis. 4. Left shoulder: Minimal acromioclavicular osteoarthritis. 5. Right elbow: Normal. 6. Left elbow: Normal. 7. 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 No arthritis. 8. Left foot: Very mild osteoarthritis. 9. Right knee: Mild lateral compartment arthritis. A 1 cm sclerotic bone lesion in the medial femoral condyle. In the absence of a known history of malignancy this is likely a bone island. Recommend clinical correlation and follow-up radiographs in 3 months to ensure stability. Alternatively MRI of the knee with and without contrast could be performed for further characterization now. 10. Left knee: Small effusion. Otherwise normal. 11. Diffuse osteopenia. This report was electronically signed by BOOGIE SEARS MD ??on 07/22/2021 12:42 PM . Narrative 07/22/2021 12:42 PM CDT Exam: 1.XR HAND RIGHT 3VW 2.XR ELBOW LEFT 3VW 3.XR ELBOW RIGHT 3VW 4.XR SHOULDER RIGHT 3 view 5.XR SHOULDER LEFT 3 view 6.XR KNEE RIGHT 3VW 7.XR KNEE LEFT 3VW 8.XR HAND LEFT 3VW 9.XR FOOT LEFT 3VW 10.XR FOOT RIGHT 3VW History: ??M06.9: Rheumatoid arthritis, involving unspecified site, unspecified whether rheumatoid factor present Z51.81: 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 Comparison: None. Findings: Right hand: No fracture or dislocation is present. The metacarpophalangeal joint spaces are normal. There is mild osteoarthritis at a few interphalangeal joints. No erosions are seen. The bones are osteopenic. There is mild soft tissue swelling. Left hand: No fracture or dislocation is seen. The joint spaces are normal. No erosions are seen. The bones are osteopenic. There is mild soft tissue swelling. Right shoulder: No fracture or dislocation is present. The glenohumeral joint space is normal. There is minimal degenerative change at the acromioclavicular joint. No erosions are seen. The bones are osteopenic. Left shoulder: No fracture or dislocation is present. The glenohumeral joint space is normal. There is minimal degenerative change at the acromioclavicular joint. No erosions are seen. The bones are osteopenic. Right elbow: No acute fracture or dislocation is present. No erosions are seen. The joint spaces are normal. There is no effusion. ??The bones are mildly osteopenic. Left elbow: No acute fracture or dislocation is present. No erosions are seen. The joint spaces are normal. There is no effusion. ??The bones are mildly osteopenic. Right foot: Status post amputation of the first toe at the level of the distal phalanx shaft and disarticulation of the second toe at the level of the proximal interphalangeal joint. No acute fracture or dislocation. The joint spaces are normal. No erosions are visualized. The bones are osteopenic. There is mild soft tissue swelling. Left foot: No fracture or dislocation is present. There is mild osteoarthritis at the fifth toe distal interphalangeal joint. Otherwise the joint spaces are normal. No erosions are seen. ??Bone density is normal. ??The soft tissues are normal. Right knee: No fracture or dislocation is present. There is mild lateral compartment joint space narrowing. No erosions are seen. A small effusion is visible. A 1 cm sclerotic bone lesion in the medial femoral condyle is noted. The bones are mildly osteopenic. Left knee: No acute fracture or dislocation is present. No erosions are seen. The joint spaces are normal. There is a small effusion. ??The bones are mildly osteopenic. Procedure Note Boogie Sears MD - 07/22/2021 Exam: 1.XR HAND RIGHT 3VW 2.XR ELBOW LEFT 3VW 3.XR ELBOW RIGHT 3VW 4.XR SHOULDER RIGHT 3 view 5.XR SHOULDER LEFT 3 view 6.XR KNEE RIGHT 3VW 7.XR KNEE LEFT 3VW 8.XR HAND LEFT 3VW 9.XR FOOT LEFT 3VW 10.XR FOOT RIGHT 3VW History: M06.9: Rheumatoid arthritis, involving unspecified site, unspecified whether rheumatoid factor present Z51.81: 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 Comparison: None. Findings: Right hand: No fracture or dislocation is present. The metacarpophalangeal joint spaces are normal. There is mild osteoarthritis at a few interphalangeal joints. No erosions are seen. The bones are osteopenic. There is mildsoft tissue swelling. Left hand: No fracture or dislocation is seen. The joint spaces are normal. No erosions are seen. The bones are osteopenic. There is mild soft tissue swelling. Right shoulder: No fracture or dislocation is present. The glenohumeral joint space is normal. There is minimal degenerative change at the acromioclavicular joint. No erosions are seen. The bones are osteopenic. Left shoulder: No fracture or dislocation is present. The glenohumeral joint space is normal. There is minimal degenerative change at the acromioclavicular joint. No erosions are seen. The bones are osteopenic. Right elbow: No acute fracture or dislocation is present. No erosions are seen. The joint spaces are normal. There is no effusion. The bones are mildly osteopenic. Left elbow: No acute fracture or dislocation is present. No erosions are seen. The joint spaces are normal. There is no effusion. The bones are mildly osteopenic. Right foot: Status post amputation of the first toe at the level of the distalphalanx shaft and disarticulation of the second toe at the level of the proximal interphalangeal joint. No acute fracture or dislocation. The jointspaces are normal. No erosions are visualized. The bones are osteopenic. Thereis mild soft tissue swelling. Left foot: No fracture or dislocation is present. There is mild osteoarthritis atthe fifth toe distal interphalangeal joint. Otherwise the joint spaces are normal. No erosions are seen. Bone density is normal. The soft tissues are normal. Right knee: No fracture or dislocation is present. There is mild lateral compartment joint space narrowing. No erosions are seen. A small effusion isvisible. A 1 cm sclerotic bone lesion in the medial femoral condyle is noted. The bones are mildly osteopenic. Left knee: No acute fracture or dislocation is present. No erosions are seen. The joint spaces are normal. There is a small effusion. The bones aremildly osteopenic. IMPRESSION: 1. Right hand: Very mild osteoarthritis. 2. Left hand: No significant arthritis. 3. Right shoulder: Minimal acromioclavicular osteoarthritis. 4. Left shoulder: Minimal acromioclavicular osteoarthritis. 5. Right elbow: Normal. 6. Left elbow: Normal. 7. 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 No arthritis. 8. Left foot: Very mild osteoarthritis. 9. Right knee: Mild lateral compartment arthritis. A 1 cm sclerotic bone lesion in the medial femoral condyle. In the absence of a known historyof malignancy this is likely a bone island. Recommend clinical correlation and follow-up radiographs in 3 months to ensure stability. Alternatively MRI of the knee with and without contrast could be performed for further characterization now. 10. Left knee: Small effusion. Otherwise normal. 11. Diffuse osteopenia. This report was electronically signed by BOOGIE SEARS MD on 07/22/2021 12:42 PM . Anny Serna MD DIAGNOSTIC IMAG ING ORDERABLES * XR SHOULDER RIGHT 2VW OR MORE (07/22/2021 12:19 PM CDT) Anatomical Region Laterality Modality Upper Extremity Radiographic Ivana ging 07/22/2021 12:3 0 PM CDT Impressions 07/22/2021 12:42 PM CDT IMPRESSION: 1. Right hand: Very mild osteoarthritis. 2. Left hand: No significant arthritis. 3. Right shoulder: Minimal acromioclavicular osteoarthritis. 4. Left shoulder: Minimal acromioclavicular osteoarthritis. 5. Right elbow: Normal. 6. Left elbow: Normal. 7. 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 No arthritis. 8. Left foot: Very mild osteoarthritis. 9. Right knee: Mild lateral compartment arthritis. A 1 cm sclerotic bone lesion in the medial femoral condyle. In the absence of a known history of malignancy this is likely a bone island. Recommend clinical correlation and follow-up radiographs in 3 months to ensure stability. Alternatively MRI of the knee with and without contrast could be performed for further characterization now. 10. Left knee: Small effusion. Otherwise normal. 11. Diffuse osteopenia. This report was electronically signed by BOOGIE SEARS MD ??on 07/22/2021 12:42 PM . Narrative 07/22/2021 12:42 PM CDT Exam: 1.XR HAND RIGHT 3VW 2.XR ELBOW LEFT 3VW 3.XR ELBOW RIGHT 3VW 4.XR SHOULDER RIGHT 3 view 5.XR SHOULDER LEFT 3 view 6.XR KNEE RIGHT 3VW 7.XR KNEE LEFT 3VW 8.XR HAND LEFT 3VW 9.XR FOOT LEFT 3VW 10.XR FOOT RIGHT 3VW History: ??M06.9: Rheumatoid arthritis, involving unspecified site, unspecified whether rheumatoid factor present Z51.81: 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 Comparison: None. Findings: Right hand: No fracture or dislocation is present. The metacarpophalangeal joint spaces are normal. There is mild osteoarthritis at a few interphalangeal joints. No erosions are seen. The bones are osteopenic. There is mild soft tissue swelling. Left hand: No fracture or dislocation is seen. The joint spaces are normal. No erosions are seen. The bones are osteopenic. There is mild soft tissue swelling. Right shoulder: No fracture or dislocation is present. The glenohumeral joint space is normal. There is minimal degenerative change at the acromioclavicular joint. No erosions are seen. The bones are osteopenic. Left shoulder: No fracture or dislocation is present. The glenohumeral joint space is normal. There is minimal degenerative change at the acromioclavicular joint. No erosions are seen. The bones are osteopenic. Right elbow: No acute fracture or dislocation is present. No erosions are seen. The joint spaces are normal. There is no effusion. ??The bones are mildly osteopenic. Left elbow: No acute fracture or dislocation is present. No erosions are seen. The joint spaces are normal. There is no effusion. ??The bones are mildly osteopenic. Right foot: Status post amputation of the first toe at the level of the distal phalanx shaft and disarticulation of the second toe at the level of the proximal interphalangeal joint. No acute fracture or dislocation. The joint spaces are normal. No erosions are visualized. The bones are osteopenic. There is mild soft tissue swelling. Left foot: No fracture or dislocation is present. There is mild osteoarthritis at the fifth toe distal interphalangeal joint. Otherwise the joint spaces are normal. No erosions are seen. ??Bone density is normal. ??The soft tissues are normal. Right knee: No fracture or dislocation is present. There is mild lateral compartment joint space narrowing. No erosions are seen. A small effusion is visible. A 1 cm sclerotic bone lesion in the medial femoral condyle is noted. The bones are mildly osteopenic. Left knee: No acute fracture or dislocation is present. No erosions are seen. The joint spaces are normal. There is a small effusion. ??The bones are mildly osteopenic. Procedure Note Boogie Sears MD - 07/22/2021 Exam: 1.XR HAND RIGHT 3VW 2.XR ELBOW LEFT 3VW 3.XR ELBOW RIGHT 3VW 4.XR SHOULDER RIGHT 3 view 5.XR SHOULDER LEFT 3 view 6.XR KNEE RIGHT 3VW 7.XR KNEE LEFT 3VW 8.XR HAND LEFT 3VW 9.XR FOOT LEFT 3VW 10.XR FOOT RIGHT 3VW History: M06.9: Rheumatoid arthritis, involving unspecified site, unspecified whether rheumatoid factor present Z51.81: 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 Comparison: None. Findings: Right hand: No fracture or dislocation is present. The metacarpophalangeal joint spaces are normal. There is mild osteoarthritis at a few interphalangeal joints. No erosions are seen. The bones are osteopenic. There is mildsoft tissue swelling. Left hand: No fracture or dislocation is seen. The joint spaces are normal. No erosions are seen. The bones are osteopenic. There is mild soft tissue swelling. Right shoulder: No fracture or dislocation is present. The glenohumeral joint space is normal. There is minimal degenerative change at the acromioclavicular joint. No erosions are seen. The bones are osteopenic. Left shoulder: No fracture or dislocation is present. The glenohumeral joint space is normal. There is minimal degenerative change at the acromioclavicular joint. No erosions are seen. The bones are osteopenic. Right elbow: No acute fracture or dislocation is present. No erosions are seen. The joint spaces are normal. There is no effusion. The bones are mildly osteopenic. Left elbow: No acute fracture or dislocation is present. No erosions are seen. The joint spaces are normal. There is no effusion. The bones are mildly osteopenic. Right foot: Status post amputation of the first toe at the level of the distalphalanx shaft and disarticulation of the second toe at the level of the proximal interphalangeal joint. No acute fracture or dislocation. The jointspaces are normal. No erosions are visualized. The bones are osteopenic. Thereis mild soft tissue swelling. Left foot: No fracture or dislocation is present. There is mild osteoarthritis atthe fifth toe distal interphalangeal joint. Otherwise the joint spaces are normal. No erosions are seen. Bone density is normal. The soft tissues are normal. Right knee: No fracture or dislocation is present. There is mild lateral compartment joint space narrowing. No erosions are seen. A small effusion isvisible. A 1 cm sclerotic bone lesion in the medial femoral condyle is noted. The bones are mildly osteopenic. Left knee: No acute fracture or dislocation is present. No erosions are seen. The joint spaces are normal. There is a small effusion. The bones aremildly osteopenic. IMPRESSION: 1. Right hand: Very mild osteoarthritis. 2. Left hand: No significant arthritis. 3. Right shoulder: Minimal acromioclavicular osteoarthritis. 4. Left shoulder: Minimal acromioclavicular osteoarthritis. 5. Right elbow: Normal. 6. Left elbow: Normal. 7. 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 No arthritis. 8. Left foot: Very mild osteoarthritis. 9. Right knee: Mild lateral compartment arthritis. A 1 cm sclerotic bone lesion in the medial femoral condyle. In the absence of a known historyof malignancy this is likely a bone island. Recommend clinical correlation and follow-up radiographs in 3 months to ensure stability. Alternatively MRI of the knee with and without contrast could be performed for further characterization now. 10. Left knee: Small effusion. Otherwise normal. 11. Diffuse osteopenia. This report was electronically signed by BOOGIE SEARS MD on 07/22/2021 12:42 PM . Anny Serna MD DIAGNOSTIC IMAG ING ORDERABLES * XR SHOULDER LEFT 2VW OR MORE (07/22/2021 12:19 PM CDT) Anatomical Region Laterality Modality Upper Extremity Radiographic Ivana ging 07/22/2021 12:3 0 PM CDT Impressions 07/22/2021 12:42 PM CDT IMPRESSION: 1. Right hand: Very mild osteoarthritis. 2. Left hand: No significant arthritis. 3. Right shoulder: Minimal acromioclavicular osteoarthritis. 4. Left shoulder: Minimal acromioclavicular osteoarthritis. 5. Right elbow: Normal. 6. Left elbow: Normal. 7. 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 No arthritis. 8. Left foot: Very mild osteoarthritis. 9. Right knee: Mild lateral compartment arthritis. A 1 cm sclerotic bone lesion in the medial femoral condyle. In the absence of a known history of malignancy this is likely a bone island. Recommend clinical correlation and follow-up radiographs in 3 months to ensure stability. Alternatively MRI of the knee with and without contrast could be performed for further characterization now. 10. Left knee: Small effusion. Otherwise normal. 11. Diffuse osteopenia. This report was electronically signed by BOOGIE SEARS MD ??on 07/22/2021 12:42 PM . Narrative 07/22/2021 12:42 PM CDT Exam: 1.XR HAND RIGHT 3VW 2.XR ELBOW LEFT 3VW 3.XR ELBOW RIGHT 3VW 4.XR SHOULDER RIGHT 3 view 5.XR SHOULDER LEFT 3 view 6.XR KNEE RIGHT 3VW 7.XR KNEE LEFT 3VW 8.XR HAND LEFT 3VW 9.XR FOOT LEFT 3VW 10.XR FOOT RIGHT 3VW History: ??M06.9: Rheumatoid arthritis, involving unspecified site, unspecified whether rheumatoid factor present Z51.81: 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 Comparison: None. Findings: Right hand: No fracture or dislocation is present. The metacarpophalangeal joint spaces are normal. There is mild osteoarthritis at a few interphalangeal joints. No erosions are seen. The bones are osteopenic. There is mild soft tissue swelling. Left hand: No fracture or dislocation is seen. The joint spaces are normal. No erosions are seen. The bones are osteopenic. There is mild soft tissue swelling. Right shoulder: No fracture or dislocation is present. The glenohumeral joint space is normal. There is minimal degenerative change at the acromioclavicular joint. No erosions are seen. The bones are osteopenic. Left shoulder: No fracture or dislocation is present. The glenohumeral joint space is normal. There is minimal degenerative change at the acromioclavicular joint. No erosions are seen. The bones are osteopenic. Right elbow: No acute fracture or dislocation is present. No erosions are seen. The joint spaces are normal. There is no effusion. ??The bones are mildly osteopenic. Left elbow: No acute fracture or dislocation is present. No erosions are seen. The joint spaces are normal. There is no effusion. ??The bones are mildly osteopenic. Right foot: Status post amputation of the first toe at the level of the distal phalanx shaft and disarticulation of the second toe at the level of the proximal interphalangeal joint. No acute fracture or dislocation. The joint spaces are normal. No erosions are visualized. The bones are osteopenic. There is mild soft tissue swelling. Left foot: No fracture or dislocation is present. There is mild osteoarthritis at the fifth toe distal interphalangeal joint. Otherwise the joint spaces are normal. No erosions are seen. ??Bone density is normal. ??The soft tissues are normal. Right knee: No fracture or dislocation is present. There is mild lateral compartment joint space narrowing. No erosions are seen. A small effusion is visible. A 1 cm sclerotic bone lesion in the medial femoral condyle is noted. The bones are mildly osteopenic. Left knee: No acute fracture or dislocation is present. No erosions are seen. The joint spaces are normal. There is a small effusion. ??The bones are mildly osteopenic. Procedure Note Boogie Sears MD - 07/22/2021 Exam: 1.XR HAND RIGHT 3VW 2.XR ELBOW LEFT 3VW 3.XR ELBOW RIGHT 3VW 4.XR SHOULDER RIGHT 3 view 5.XR SHOULDER LEFT 3 view 6.XR KNEE RIGHT 3VW 7.XR KNEE LEFT 3VW 8.XR HAND LEFT 3VW 9.XR FOOT LEFT 3VW 10.XR FOOT RIGHT 3VW History: M06.9: Rheumatoid arthritis, involving unspecified site, unspecified whether rheumatoid factor present Z51.81: 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 Comparison: None. Findings: Right hand: No fracture or dislocation is present. The metacarpophalangeal joint spaces are normal. There is mild osteoarthritis at a few interphalangeal joints. No erosions are seen. The bones are osteopenic. There is mildsoft tissue swelling. Left hand: No fracture or dislocation is seen. The joint spaces are normal. No erosions are seen. The bones are osteopenic. There is mild soft tissue swelling. Right shoulder: No fracture or dislocation is present. The glenohumeral joint space is normal. There is minimal degenerative change at the acromioclavicular joint. No erosions are seen. The bones are osteopenic. Left shoulder: No fracture or dislocation is present. The glenohumeral joint space is normal. There is minimal degenerative change at the acromioclavicular joint. No erosions are seen. The bones are osteopenic. Right elbow: No acute fracture or dislocation is present. No erosions are seen. The joint spaces are normal. There is no effusion. The bones are mildly osteopenic. Left elbow: No acute fracture or dislocation is present. No erosions are seen. The joint spaces are normal. There is no effusion. The bones are mildly osteopenic. Right foot: Status post amputation of the first toe at the level of the distalphalanx shaft and disarticulation of the second toe at the level of the proximal interphalangeal joint. No acute fracture or dislocation. The jointspaces are normal. No erosions are visualized. The bones are osteopenic. Thereis mild soft tissue swelling. Left foot: No fracture or dislocation is present. There is mild osteoarthritis atthe fifth toe distal interphalangeal joint. Otherwise the joint spaces are normal. No erosions are seen. Bone density is normal. The soft tissues are normal. Right knee: No fracture or dislocation is present. There is mild lateral compartment joint space narrowing. No erosions are seen. A small effusion isvisible. A 1 cm sclerotic bone lesion in the medial femoral condyle is noted. The bones are mildly osteopenic. Left knee: No acute fracture or dislocation is present. No erosions are seen. The joint spaces are normal. There is a small effusion. The bones aremildly osteopenic. IMPRESSION: 1. Right hand: Very mild osteoarthritis. 2. Left hand: No significant arthritis. 3. Right shoulder: Minimal acromioclavicular osteoarthritis. 4. Left shoulder: Minimal acromioclavicular osteoarthritis. 5. Right elbow: Normal. 6. Left elbow: Normal. 7. 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 No arthritis. 8. Left foot: Very mild osteoarthritis. 9. Right knee: Mild lateral compartment arthritis. A 1 cm sclerotic bone lesion in the medial femoral condyle. In the absence of a known historyof malignancy this is likely a bone island. Recommend clinical correlation and follow-up radiographs in 3 months to ensure stability. Alternatively MRI of the knee with and without contrast could be performed for further characterization now. 10. Left knee: Small effusion. Otherwise normal. 11. Diffuse osteopenia. This report was electronically signed by BOOGIE SEARS MD on 07/22/2021 12:42 PM . Anny Serna MD DIAGNOSTIC IMAG ING ORDERABLES * XR CHEST 2VW (07/22/2021 12:19 PM CDT) Anatomical Region Laterality Modality Chest Radiographic Ivana ging 07/22/2021 2:30 PM CDT Impressions 07/23/2021 5:37 PM CDT FINDINGS/IMPRESSION: There is no focal consolidation, pleural effusion, or pneumothorax. The cardiomediastinal silhouette is normal. The visible bony thorax is intact. Dictated by Vladimir Washburn DO (vice president lending). IDr. KINDRA have personally reviewed and interpreted this examination/study. This report was electronically signed by KINDRA BAILEY ??on 07/23/2021 5:37 PM . Narrative 07/23/2021 5:37 PM CDT EXAMINATION: XR CHEST 2VW HISTORY: M06.9: Rheumatoid arthritis, involving unspecified site, unspecified whether rheumatoid factor present Z51.81: 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 COMPARISON: None. Procedure Note Kindra Bailey MD - 07/23/2021 EXAMINATION: XR CHEST 2VW HISTORY: M06.9: Rheumatoid arthritis, involving unspecified site, unspecified whether rheumatoid factor present Z51.81: 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 COMPARISON: None. FINDINGS/IMPRESSION: There is no focal consolidation, pleural effusion, or pneumothorax. The cardiomediastinal silhouette is normal. The visible bony thorax isintact. Dictated by Vladimir Washburn DO (vice president lending). Dr. KINDRA Anguiano have personally reviewed and interpreted this examination/study. This report was electronically signed by KINDRA BAILEY on 07/23/2021 5:37 PM . Anny Serna MD DIAGNOSTIC IMAG ING ORDERABLES Care Teams Kennel Worker Relationship Specialty Start Date End Date Sultana Sullivan MD Replaced by [facility] [place] [address] PCP - General 11/24/22
--- OUTSIDE RECORDS SUMMARY | 2024-10-16 22:29 | XMS_ITS | Clinical Summary ---
Author Organization [facility] Address [address] [place] [address] Care Team Providers Care Wilton Weaver Name Role Phone Sultana Sullivan MD Primary Care Provider [phone] Source Comments [facility],non-owned Affiliates and Associated Physician Practices is amultiple site organization consisting of ambulatory clinics and hospital sitesin [place], [place], [place] and [place]. This disclosure is being madepursuant to the Care Everywhere program and may not contain all information available regarding this patient. Last updated 18.[facility] Allergies No known active allergies Medications * [...] multiple sites with positive rheumatoid factor 03/24/2023 Encounters Date Type Department Care Team Description 08/13/2024 9:00 AM HYDROCHLORIC ACID OPERATOR - 08/13/2024 11:59 PM HYDROCHLORIC ACID OPERATOR Hospital Encounter [facility] [address] [place] [address] Sultana Sullivan MD Discharge Disposition: Home or Self Care 08/13/2024 Travel 07/30/2024 9:00 AM CDT - 07/30/2024 11:59 PM CDT Hospital Encounter [facility] [address] [place] [address] Sultana Sullivan MD Discharge Disposition: Home or Self Care 07/30/2024 Travel from Last 3 Months Social History Tobacco Use Types Packs/Day Years [...] Comments Blood Pressure 135/82 08/13/2024 9:38 AM HYDROCHLORIC ACID OPERATOR Pulse 75 08/13/2024 9:38 AM HYDROCHLORIC ACID OPERATOR Temperature 36.4 ??C (97.5 ??F) 08/13/2024 9:38 AM CS T Respiratory Rate 18 08/13/2024 9:38 AM HYDROCHLORIC ACID OPERATOR Oxygen Saturation 100% 08/13/2024 9:38 AM HYDROCHLORIC ACID OPERATOR Inhaled Oxygen Concentration - - Weight 59 kg (130 lb) 08/13/2024 9:38 AM HYDROCHLORIC ACID OPERATOR Height 152.4 cm (5') 06/20/2024 11:00 AM CDT Body Mass Index 25.39 06/20/2024 11:00 AM CDT Plan of Treatment Upcoming Encounters Date Type Department Care Team (Late st Contact Info) Description 10/31/2024 10:00 AM HYDROCHLORIC ACID OPERATOR Office Visit [facility] - Rheumatology [address] [place] [address], [place] [phone] Antonio Bowles MD [address] [place] [address] [place] [phone] 02/01/2025 9:00 AM CDT Appointment [facility] [address] [place] [address] Sultana Sullivan MD [address] [place] [phone] Health Maintenance Due Date Last Done Comments BONE DENSITY TESTING 1959 COLOGUARD (AGES 45-75) - COL ON CA SCREENING 1959 COLON MONITORING 1959 COLONOSCOPY - COLON CA SCREENING 1959 CT COLONOGRAPHY - COLON CA SCREENING 1959 Colorectal Cancer Screening 1959 FIT - COLON CA SCREENING 1959 FLEX SIG - COLON CA SCREENING 1959 LIPID TESTING 1959 MAMMOGRAM 1959 PAP SMEAR 1959 COVID-19 VACCINE (#1) 02/19/1964 PNEUMOCOCCAL VACCINE 65+ (1 of 2 - PCV) 1965 HIV SCREENING 1974 DTAP/TDAP/TD VACCINES (1 - Tdap) 1978 ZOSTER VACCINE (1 of 2) 1978 Respiratory Syncytial Virus (RSV) Vaccine Pt: or over 60 yrs (1 - Risk 60-74 years 1-dose series) 2019 INFLUENZA VACCINE (#1) 2024 DEPRESSION SCREENING 10/10/2024 01/18/2024, 11/10/2022, 05/05/2022 MEDICARE AWV ? CALENDAR YEAR 2024 HEPATITIS C SCREENING Completed 06/17/2023 , 11/10/2022, 07/22/2021 HEPATITIS B VACCINE Aged Out No longe r eligible based on patient's age to complete this topic HIB VACCINE Aged Out No longer eligi ble based on patient's age to complete this topic HPV VACCINE Aged Out No longer eligi ble based on patient's age to complete this topic MENINGOCOCCAL VACCINE Aged Out No jay nora eligible based on patient's age to complete this topic Procedures Procedure Name Priority Date/Time Associated Diagnosis Comments IGM BLOOD Routine 07/30/2024 9:30 AM CDT Rheumatoid arthritis, involving unspecified site, unspecified whether rheumatoid factor present (HCC) 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 Long-term use 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 [facility] 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 Arthralgia, unspecified joint High risk medications (not anticoagulants) long-term use IGG BLOOD Routine 07/30/2024 9:30 AM CDT Rheumatoid arthritis, involving unspecified site, unspecified whether rheumatoid factor present (HCC) 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 Long-term use 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 [facility] 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 Arthralgia, unspecified joint High risk medications (not anticoagulants) long-term use IGA BLOOD Routine 07/30/2024 9:30 AM CDT Rheumatoid arthritis, involving unspecified site, unspecified whether rheumatoid factor present (HCC) 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 Long-term use 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 Arthralgia, unspecified joint High risk medications (not anticoagulants) long-term use ERYTHROCYTE SEDIMENTATION RATE Routine 07/30/2024 9:30 AM CDT Rheumatoid arthritis, involving unspecified site, unspecified whether rheumatoid factor present (HCC) 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 Long-term use 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 Arthralgia, unspecified joint High risk medications (not anticoagulants) long-term use C-REACTIVE PROTEIN Routine 07/30/2024 9: 30 AM CDT Rheumatoid arthritis, involving unspecified site, unspecified whether rheumatoid factor present (HCC) 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 Long-term use 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 [facility] 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 Arthralgia, unspecified joint High risk medications (not anticoagulants) long-term use COMPREHENSIVE METABOLIC PANEL Routine 07/30/2024 9:30 AM CDT Rheumatoid arthritis, involving unspecified site, unspecified whether rheumatoid factor present (HCC) 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 Long-term use 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 [facility] 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 Arthralgia, unspecified joint High risk medications (not anticoagulants) long-term use CBC W AUTO DIFFERENTIAL Routine 07/30/2024 9:30 AM CDT Rheumatoid arthritis, involving unspecified site, unspecified whether rheumatoid factor present (HCC) 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 Long-term use 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 [facility] 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 Arthralgia, unspecified joint High risk medications (not anticoagulants) long-term use HEPATITIS C ANTIBODY 06/17/2023 4:11 PM CDT from Last 3 Months or Most Recently Relevant to Health Maintenance Results * C-REACTIVE PROTEIN (07/30/2024 9:30 AM CDT) C-Reactive Protein <0.5 <=0.5 mg/dL 07/30/2024 10:28 AM CDT [facility] Blood BLOOD SPECIMEN / Unknown Venipuncture / Unknown 07/30/2024 9:30 AM CDT 07/30/2024 9:55 AM CDT Catherine Hoffman MD LAB - CHEMISTR Y ORDERABLES Performing Organization Address City/[facility]/ZIP Co de Phone Number [address] [address], [facility] [phone] * (ABNORMAL) ERYTHROCYTE SEDIMENTATION RATE (07/30/2024 9:30 AM CDT) [facility] Erythrocyte Sedimentation Rate Westergren 48(H) 0 - 30 MM/HR 07/30/2024 10:17 AM CDT [facility] Blood BLOOD SPECIMEN / Unknown Venipuncture / Unknown 07/30/2024 9:30 AM CDT 07/30/2024 9:55 AM CDT Catherine Hoffman MD LAB - HEMATOLO GY ORDERABLES Performing Organization Address [facility] Co de Phone Number [address] [address], [facility] [phone] * (ABNORMAL) CBC WITH DIFFERENTIAL (07/30/2024 9:30 AM CDT) Pathologist [facility] WBC 6.2 4.0 - 10.7 x10E9/L 07/30/2024 9:59 AM CDT [facility] RBC Count 4.95 3.90 - 5.20 x10E12/L 07/30/2024 9:59 AM T [facility] Hemoglobin 14.8 11.9 - 15.8 g/dL 07/30/2024 9:59 AM T [facility] Hematocrit 44.9 34.8 - 46.1 % 07/30/2024 9:59 AM T [facility] MCV 90.7 80.0 - 98.0 fL 07/30/2024 9:59 AM [facility] MCH 29.9 26.7 - 33.6 pg 07/30/2024 9:59 AM [facility] MCHC 33.0 31.7 - 36.3 g/dL 07/30/2024 9:59 AM [facility] RDW-CV 13.6 11.3 - 14.8 % 07/30/2024 9:59 AM [facility] Platelet Count 424(H) 150 - 420 x10E9/L 07/30/2024 9:59 AM [facility] MPV 10.2 7.8 - 11.4 fL 07/30/2024 9:59 AM [facility] Preliminary Absolute Neutrophil 4.32 1.60 - 7.50 x10E9/L 07/30/2024 9:59 AM [facility] Neutrophil % 70.2 41.0 - 74.0 % 07/30/2024 9:59 AM [facility] Lymphocyte % 13.3(L) 17.0 - 47.0 % 07/30/2024 9:59 AM [facility] Monocyte % 8.8 3.0 - 11.0 % 07/30/2024 9:59 AM [facility] Eosinophil % 6.5 0.0 - 7.0 % 07/30/2024 9:59 AM [facility] Basophil % 1.0 0.0 - 1.6 % 07/30/2024 9:59 AM [facility] Immature Granulocytes % 0.2 0.0 - 1.0 % 07/30/2024 9:59 AM [facility] Neutrophil Absolute 4.32 1.60 - 7.50 x10E9/L 07/30/2024 9:59 AM [facility] Lymphocyte Absolute 0.82(L) 1.00 - 4.40 x10E9/L 07/30/2024 9:59 AM [facility] Monocyte Absolute 0.54 0.15 - 1.00 x10E9/L 07/30/2024 9:59 AM [facility] Eosinophil Absolute 0.40 0.00 - 0.60 x10E9/L 07/30/2024 9:59 AM [facility] Basophil Absolute 0.06 0.00 - 0.13 x10E9/L 07/30/2024 9:59 AM [facility] Blood BLOOD SPECIMEN / Unknown Venipuncture / Unknown 07/30/2024 9:30 AM CDT 07/30/2024 9:55 AM CDT Catherine Hoffman MD LAB - HEMATOLO GY ORDERABLES [facility] [address] [place] [address], [facility] [phone] * (ABNORMAL) COMPREHENSIVE METABOLIC PANEL (07/30/2024 9:30 AM CDT) BUN 15 7 - 26 mg/dL 07/30/2024 10:42 AM [facility] Creatinine 0.75 0.56 - 0.96 mg/dL 07/30/2024 10:42 AM [facility] Sodium 140 136 - 145 mmol/L 07/30/2024 10:42 AM [facility] Potassium 4.1 3.5 - 4.5 mmol/L 07/30/2024 10:42 AM [facility] Chloride 107 98 - 107 mmol/L 07/30/2024 10:42 AM [facility] CO2 24 22 - 29 mmol/L 07/30/2024 10:42 AM [facility] Glucose 90 70 - 115 mg/dL 07/30/2024 10:42 AM [facility] Calcium 9.4 8.4 - 10.2 mg/dL 07/30/2024 10:42 AM [facility] Protein Total 7.5 6.0 - 8.3 g/dL 07/30/2024 10:42 AM [facility] Albumin 4.0 3.4 - 5.0 g/dL 07/30/2024 10:42 AM [facility] Bilirubin Total 0.4 0.2 - 1.2 mg/dL 07/30/2024 10:42 AM [facility] Alkaline Phosphatase 97 40 - 150 U/L 07/30/2024 10:42 AM [facility] ALT 15 5 - 55 U/L 07/30/2024 10:42 AM [facility] AST 20 5 - 34 U/L 07/30/2024 10:42 AM [facility] Anion Gap 9 6 - 16 07/30/2024 10:42 AM [facility] BUN/Creatinine Ratio 20 7 - 23 07/30/2024 10:42 AM [facility] Osmolality Calculated 290 275 - 295 mOsm/kg 07/30/2024 10:42 AM [facility] Albumin/Globulin Ratio 1.1 1.1 - 2.3 07/30/2024 10:42 AM [facility] eGFR by CKD-EPI 88(L) >=90 mL/min/1.7 3 m2 07/30/2024 10:42 AM [facility] Blood BLOOD SPECIMEN / Unknown Venipuncture / Unknown 07/30/2024 9:30 AM CDT 07/30/2024 9:55 AM CDT Catherine Hoffman MD LAB - CHEMISTR Y ORDERABLES [address] [address], [facility] [phone] * (ABNORMAL) IGM BLOOD (07/30/2024 9:30 AM CDT) IgM 35(L) 37 - 286 mg/dL 07/30/2024 11:26 AM T [facility] Blood BLOOD SPECIMEN / Unknown Venipuncture / Unknown 07/30/2024 9:30 AM CDT 07/30/2024 10:32 AM CDT Catherine Hoffman MD LAB - CHEMISTR Y ORDERABLES [address] [address], [place] [phone] * IGG BLOOD (07/30/2024 9:30 AM CDT) IgG 1,933 767 - 1,590 mg/dL 07/30/2024 11:26 AM CDT [facility] Blood BLOOD SPECIMEN / Unknown Venipuncture / Unknown 07/30/2024 9:30 AM CDT 07/30/2024 10:32 AM CDT Catherine Hoffman MD LAB - CHEMISTR Y ORDERABLES [facility] [address] [place] [address], [facility] [phone] * IGA BLOOD (07/30/2024 9:30 AM CDT) IgA 250 61 - 356 mg/dL 07/30/2024 11:26 AM CDT [facility] Blood BLOOD SPECIMEN / Unknown Venipuncture / Unknown 07/30/2024 9:30 AM CDT 07/30/2024 10:32 AM CDT Catherine Hoffman MD LAB - CHEMISTR Y ORDERABLES [address] [address], [facility] [phone] * HEPATITIS C ANTIBODY (06/17/2023 4:11 PM CDT) Hepatitis C Antibody Non Reactive Non Reactive [facility] INSURANCE BILL Comment: HCV antibody alone does not differentiate between previously resolved infection and active infection. Equivocal and Reactive HCV antibody results should be followed up with an HCV RNA test to support the diagnosis of active HCV infection. 06/17/2023 4:11 PM CDT 06/17/2023 Narrative Resulting Agency Comment Lab Testing performed at: [facility] [address] [facility] ??[facility] [id number] Catherine Hoffman MD LAB - CHEMISTR Y ORDERABLES [facility] INSURANCE BILL [address] [place] [address] from Last 3 Months or Most Recently Relevant to Health Maintenance Care Teams Wilton Weaver Relationship Specialty Start Date End Date Sultana Sullivan MD [address] [place] [phone] PCP - General 11/24/22
--- OUTSIDE RECORDS SUMMARY | 2024-10-16 22:29 | XMS_ITS | Encounter Summary ---
Author Organization [facility] Address [address] [facility] [place] [address] Care Team Providers Care Marriage Performer Name Role Phone Sultana Sullivan MD Primary Care Provider [phone] Reason for Visit * Reason Onset Date Comments MEDICATION REFILL 07/06/2024 Encounter Details Date Type Department Care Team (Late st Contact Info) Description 07/06/2024 Refill [facility] - Rheumatology [address] [place] [address], [place] [address] Antonio Jorge MD [address] [place] [address] [place] [address] MEDICATION REFILL Social History Tobacco Use Types Packs/Day Years [...] on file documented as of this encounter Miscellaneous Notes * Addendum Note - Antonio Jorge MD - 07/19/2024 12:22 PM CDTAddended by: ANTONIO JORGE on: 07/19/2024 12:22 PM Modules accepted: Orders * Telephone Encounter - [place] - 07/06/2024 2:37 PM CDT Refill Request Sultana Joterson RAFITA: 06/20/2024 NOV scheduled: 10/31/2024 LRF: 01/06/2024 Qty Disp:180 # of refills: 0 Allergies: No Known Allergies Pended Medication Order: Requested Prescriptions Pending Prescriptions Disp Refills naproxen (Naprosyn) 500 MG tablet 180 tablet 0 Sig: Take 1 (one) tablet by mouth 2 times daily documented in this encounter Plan of Treatment Upcoming Encounters Date Type Department Care Team (Late st Contact Info) Description 10/31/2024 10:00 AM FUSING LINE INSPECTOR Office Visit [facility] - Rheumatology [address] [place] [address], [facility] [place] [address] Antonio Jorge MD [address] [place] [address] [place] [phone] 02/01/2025 9:00 AM CDT Appointment [facility] [address] [place] [address] Sultana Sullivan MD [address] [place] [phone] documented as of this encounter Visit Diagnoses Diagnosis Rheumatoid arthritis, involving unspecified site, unspecified whether rheumatoid factor present (HCC) documented in this encounter Care Teams Marriage Performer Relationship Specialty Start Date End Date Sultana Sullivan MD [address] [place] [phone] PCP - General 11/24/22 documented as of this encounter
--- OUTSIDE RECORDS SUMMARY | 2024-10-16 22:29 | XMS_ITS | Encounter Summary ---
Author Organization [facility] Address [address] [facility] [place] [address] Care Team Providers Care Legal Specialist Name Role Phone Sultana Sullivan MD Primary Care Provider [phone] Encounter Details Date Type Department Care Team (Latest Contact Info) Description 06/20/2024 11:50 AM CDT - 06/20/2024 11:59 PM CDT Hospital Encounter [facility] OP DRAW STATION [address] [place] [phone] Discharge Disposition: Home or Self Care Social [...] on file documented as of this encounter Medications at Time of Discharge Medication Sig Dispensed Refills Start Date End Date naproxen (Naprosyn) 500 MG tabletIndications:Rheuma toid arthritis, involving unspecified site, unspecified whether rheumatoid factor present (HCC) Take 1 tablet by mouth twice daily 180 tablet 01/06/2024 07/06/2024 documented as of this encounter Plan of Treatment Upcoming Encounters Date Type Department Care Team (Late st Contact Info) Description 10/31/2024 10:00 AM HAND TRUCKER Office Visit [facility] - Rheumatology [address] [facility], [place] [phone] Antonio Bowles MD [address] [facility] [place] [address] 02/01/2025 9:00 AM CDT Appointment [facility] [address] [place] [address] Sultana Sullivan MD [address] [place] [phone] documented as of this encounter Procedures Procedure Name Priority Date/Time Associated Diagnosis Comments C-REACTIVE PROTEIN Routine 06/20/2024 12 :07 PM CDT Rheumatoid arthritis, involving unspecified site, unspecified whether rheumatoid factor present (HCC) 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 High risk medications (not anticoagulants) long-term use ERYTHROCYTE SEDIMENTATION RATE Routine 06/20/2024 12:07 PM CDT Rheumatoid arthritis, involving unspecified site, unspecified whether rheumatoid factor present (HCC) 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 [facility] 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 High risk medications (not anticoagulants) long-term use CBC W AUTO DIFFERENTIAL Routine 06/20/2024 12:07 PM CDT Rheumatoid arthritis, involving unspecified site, unspecified whether rheumatoid factor present (HCC) 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 [facility] 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 High risk medications (not anticoagulants) long-term use COMPREHENSIVE METABOLIC PANEL Routine 06/20/2024 12:07 PM CDT Rheumatoid arthritis, involving unspecified site, unspecified whether rheumatoid factor present (HCC) 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 [facility] 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 High risk medications (not anticoagulants) long-term use IGM BLOOD Routine 06/20/2024 12:07 PM CDT Rheumatoid arthritis, involving unspecified site, unspecified whether rheumatoid factor present (HCC) 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 High risk medications (not anticoagulants) long-term use IGG BLOOD Routine 06/20/2024 12:07 PM CDT Rheumatoid arthritis, involving unspecified site, unspecified whether rheumatoid factor present (HCC) 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 [facility] 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 High risk medications (not anticoagulants) long-term use IGA BLOOD Routine 06/20/2024 12:07 PM CDT Rheumatoid arthritis, involving unspecified site, unspecified whether rheumatoid factor present (HCC) 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 [facility] 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 High risk medications (not anticoagulants) long-term use documented in this encounter Results * (ABNORMAL) COMPREHENSIVE METABOLIC PANEL (06/20/2024 12:07 PM CDT) [facility] BUN 16 7 - 26 mg/dL 06/20/2024 2:26 PM [facility] Creatinine 0.73 0.56 - 0.96 mg/dL 06/20/2024 2:26 PM [facility] Sodium 140 136 - 145 mmol/L 06/20/2024 2:26 PM [facility] Potassium 4.0 3.5 - 4.5 mmol/L 06/20/2024 2:26 PM [facility] Chloride 108(H) 98 - 107 mmol/L 06/20/2024 2:26 PM [facility] CO2 26 22 - 29 mmol/L 06/20/2024 2:26 PM [facility] Glucose 77 70 - 115 mg/dL 06/20/2024 2:26 PM [facility] Calcium 9.4 8.4 - 10.2 mg/dL 06/20/2024 2:26 PM [facility] Protein Total 7.3 6.0 - 8.3 g/dL 06/20/2024 2:26 PM [facility] Albumin 3.8 3.4 - 5.0 g/dL 06/20/2024 2:26 PM [facility] Bilirubin Total 0.5 0.2 - 1.2 mg/dL 06/20/2024 2:26 PM [facility] Alkaline Phosphatase 90 40 - 150 U/L 06/20/2024 2:26 PM [facility] ALT 15 5 - 55 U/L 06/20/2024 2:26 PM [facility] AST 22 5 - 34 U/L 06/20/2024 2:26 PM [facility] Anion Gap 6 6 - 16 06/20/2024 2:26 PM [facility] BUN/Creatinine Ratio 22 7 - 23 06/20/2024 2:26 PM [facility] Osmolality Calculated 290 275 - 295 mOsm/kg 06/20/2024 2:26 PM [facility] Albumin/Globulin Ratio 1.1 1.1 - 2.3 06/20/2024 2:26 PM [facility] eGFR by CKD-EPI >90 >=90 mL/min/1.7 3 m2 06/20/2024 2:26 PM [facility] Blood BLOOD SPECIMEN / Unknown Lab Venipuncture / Unknown 06/20/2024 12:07 PM CDT 06/20/2024 1:50 PM CDT Catherine Hoffman MD LAB - CHEMISTR Y ORDERABLES Performing Organization Address [facility] Co de Phone Number [address] [address] [phone] * (ABNORMAL) CBC WITH DIFFERENTIAL (06/20/2024 12:07 PM CDT) WBC 8.1 4.0 - 10.7 x10E9/L 06/20/2024 1:58 PM [facility] RBC Count 4.65 3.90 - 5.20 x10E12/L 06/20/2024 1:58 PM [facility] Hemoglobin 13.7 11.9 - 15.8 g/dL 06/20/2024 1:58 PM [facility] Hematocrit 42.2 34.8 - 46.1 % 06/20/2024 1:58 PM [facility] MCV 90.8 80.0 - 98.0 fL 06/20/2024 1:58 PM [facility] MCH 29.5 26.7 - 33.6 pg 06/20/2024 1:58 PM [facility] MCHC 32.5 31.7 - 36.3 g/dL 06/20/2024 1:58 PM [facility] RDW-CV 13.7 11.3 - 14.8 % 06/20/2024 1:58 PM [facility] Platelet Count 422(H) 150 - 420 x10E9/L 06/20/2024 1:58 PM [facility] MPV 10.0 7.8 - 11.4 fL 06/20/2024 1:58 PM [facility] Neutrophil % 70.8 41.0 - 74.0 % 06/20/2024 1:58 PM [facility] Lymphocyte % 15.2(L) 17.0 - 47.0 % 06/20/2024 1:58 PM [facility] Monocyte % 8.8 3.0 - 11.0 % 06/20/2024 1:58 PM [facility] Eosinophil % 4.2 0.0 - 7.0 % 06/20/2024 1:58 PM [facility] Basophil % 0.6 0.0 - 1.6 % 06/20/2024 1:58 PM [facility] Immature Granulocytes % 0.4 0.0 - 1.0 % 06/20/2024 1:58 PM [facility] Neutrophil Absolute 5.73 1.60 - 7.50 x10E9/L 06/20/2024 1:58 PM [facility] Lymphocyte Absolute 1.23 1.00 - 4.40 x10E9/L 06/20/2024 1:58 PM [facility] Monocyte Absolute 0.71 0.15 - 1.00 x10E9/L 06/20/2024 1:58 PM [facility] Eosinophil Absolute 0.34 0.00 - 0.60 x10E9/L 06/20/2024 1:58 PM [facility] Basophil Absolute 0.05 0.00 - 0.13 x10E9/L 06/20/2024 1:58 PM [facility] Blood BLOOD SPECIMEN / Unknown Lab Venipuncture / Unknown 06/20/2024 12:07 PM CDT 06/20/2024 1:50 PM [facility] Catherine Hoffman MD LAB - HEMATOLO GY ORDERABLES Performing Organization Address City/[facility]/ZIP Co de Phone Number [address] [address], [place] [phone] * C-REACTIVE PROTEIN (06/20/2024 12:07 PM CDT) C-Reactive Protein <0.5 <=0.5 mg/dL 06/20/2024 2:27 PM CDT [facility] Blood BLOOD SPECIMEN / Unknown Lab Venipuncture / Unknown 06/20/2024 12:07 PM CDT 06/20/2024 1:50 PM CDT Catherine Hoffman MD LAB - CHEMISTR Y ORDERABLES Performing Organization Address City/[facility]/ZIP Co de Phone Number [address] [address], [place] [phone] * (ABNORMAL) ERYTHROCYTE SEDIMENTATION RATE (06/20/2024 12:07 PM CDT) Erythrocyte Sedimentation Rate Westergren 45(H) 0 - 30 MM/HR 06/20/2024 2:08 PM CDT [facility] Blood BLOOD SPECIMEN / Unknown Lab Venipuncture / Unknown 06/20/2024 12:07 PM CDT 06/20/2024 1:50 PM CDT Catherine Hoffman MD LAB - HEMATOLO GY ORDERABLES [address] [address], [place] [phone] * IGG BLOOD (06/20/2024 12:07 PM CDT) IgG 1,234 767 - 1,590 mg/dL 06/20/2024 2:21 PM CDT [facility] Blood BLOOD SPECIMEN / Unknown Lab Venipuncture / Unknown 06/20/2024 12:07 PM CDT 06/20/2024 1:26 PM CDT Catherine Hoffman MD LAB - CHEMISTR Y ORDERABLES Performing Organization Address City/[facility]/ZIP Co de Phone Number [address] [address], [place] [phone] * (ABNORMAL) IGM BLOOD (06/20/2024 12:07 PM CDT) IgM 32(L) 37 - 286 mg/dL 06/20/2024 2:21 PM CDT [facility] Blood BLOOD SPECIMEN / Unknown Lab Venipuncture / Unknown 06/20/2024 12:07 PM CDT 06/20/2024 1:26 PM CDT Catherine Hoffman MD LAB - CHEMISTR Y ORDERABLES Performing Organization Address City/[facility] Co de Phone Number [address] [address], [place] [phone] * IGA BLOOD (06/20/2024 12:07 PM CDT) IgA 236 61 - 356 mg/dL 06/20/2024 2:21 PM CDT [facility] Blood BLOOD SPECIMEN / Unknown Lab Venipuncture / Unknown 06/20/2024 12:07 PM CDT 06/20/2024 1:26 PM CDT Catherine Hoffman MD LAB - CHEMISTR Y ORDERABLES Performing Organization Address City/[facility]/ZIP Co de Phone Number [address] [address], [place] [phone] documented in this encounter Visit Diagnoses Diagnosis Rheumatoid arthritis, involving unspecified site, unspecified whether rheumatoid factor present (HCC) 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 Encounter for therapeutic drug monitoring 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 High risk medications (not anticoagulants) long-term use Encounter for long-term (current) use of other medications documented in this encounter Care Teams Legal Specialist Relationship Specialty Start Date End Date Sultana Sullivan MD [address] [place] [phone] PCP - General 11/24/22 documented as of this encounter
--- OUTSIDE RECORDS SUMMARY | 2024-10-16 22:29 | XMS_ITS | Encounter Summary ---
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 [facility] - Rheumatology [address] [place] [address], [place] [phone] Antonio Bowles MD [address] [place] [address] [place] [phone] 02/01/2025 9:00 AM CDT Appointment [facility] [address] [place] [address] Sultana Sullivan MD [address] [place] [phone] documented as of this encounter Visit Diagnoses Not on filedocumented in this encounter Care Teams Television Technician Relationship Specialty Start Date End Date Sultana Sullivan MD [address] [place] [phone] PCP - General 11/24/22 documented as of this encounter
--- OUTSIDE RECORDS SUMMARY | 2024-10-16 22:29 | XMS_ITS | Encounter Summary ---
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 [facility] - Rheumatology [address] [place] [address], [place] [phone] Antonio Bowles MD [address] [place] [address] [place] [phone] 02/01/2025 9:00 AM CDT Appointment [facility] [address] [place] [address] Sultana Sullivan MD [address] [place] [phone] documented as of this encounter Visit Diagnoses Not on filedocumented in this encounter Care Teams Chief Informatics Officer Relationship Specialty Start Date End Date Sultana Sullivan MD [address] [place] [phone] PCP - General 11/24/22 documented as of this encounter
--- OUTSIDE RECORDS SUMMARY | 2024-10-16 22:30 | XMS_ITS | Encounter Summary ---
Author Organization [facility] Address [address] [facility] [place] [address] Care Team Providers Care Extension Supervisor Name Role Phone Sultana Sullivan MD Primary Care Provider [phone] Reason for Visit * Reason Comments Blurred Vision Encounter Details Date Type Department Care Team (Late st Contact Info) Description 04/08/2023 2:40 PM CDT Office Visit [facility] - Ophthalmology [address] [place] [phone] Long-term use 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 (Primary Dx) Social History Tobacco Use Types Packs/Day Years Used Date Smoking Tobacco: Former Cigarettes 0.5 20 0 03/10/2001 - 03/10/2021 Smokeless Tobacco: Never Alcohol Use Standard Drinks/Week Comments Never 0 (1 standard drink = 0.6 oz pur e alcohol) PHQ-2 Answer Date Recorded PHQ2 TOTAL SCORE 0 11/10/2022 Sex and Gender Information Value Date Recorded Sex Assigned at Not on file Gender Identity Not on file Sexual Orientation Not on file documented as of this encounter Progress Notes * Drake Truong I, OD - 04/11/2023 8:15 AM CDT HPI Chief Complaint Patient presents with ??? Blurred Vision Sultana Vincent is a 63 year old female referred by Catherine Hoffman MD. Pt used plaquenil for 3 months about 2 years ago due to RA. Pt is now doing infusions as treatment. Pt states that vision has been stable, pt doesn't know how old her glasses are but does use them todrive at night. Pt denies pain, pressure, flashes of light and floaters. Pt doesn't know when her last eye exam was but does state that she scratched her eye in 2018 but that has since healed and hasno vision problems from that. Drops: None. The following was also reviewed and updated: Current Outpatient Medications Medication Sig Dispense Refill ??? metroNIDAZOLE (Flagyl) 500 MG tablet Take 1 (one) tablet by mouth ??? naproxen (Naprosyn) 500 MG tablet Take 1 (one) tablet by mouth 2 times daily 180 tablet 3 ??? nitrofurantoin monohyd macro crystals (Macrobid) 100 MG capsule TAKE 1 CAPSULE BY MOUTH EVERY 12 HOURS FOR 7 DAYS ??? vitamin D, ergocalciferol, (Drisdol) 1.25 MG (43946 UT) capsule Take 1 (one) capsule by mouth every 7 days No current facility-administered medications for this visit. No Known Allergies Review of Systems Past Medical History: Diagnosis Date ??? Former smoker quit 03/2021 ??? Thrombocytosis saw heme onc 2019, no etiology found Past Surgical History: Procedure Laterality Date ??? Bilateral Tubal Ligation (BTL) No family history on file. Social History Tobacco Use ??? Smoking status: Former Packs/day: 0.50 Years: 20.00 Pack years: 10.00 Types: Cigarettes Quit date: 03/10/2021 Years since quittin.0 ??? Smokeless tobacco: Never Vaping Use ??? Vaping Use: Never used Substance Use Topics ??? Alcohol use: Never ??? Drug use: Never Base Eye Exam Visual Acuity (Snellen - Linear) Right Left Dist sc 20/30 20/20 Dist cc 20/30 +2 20/30 -1 Tonometry (Tonopen, 3:47 PM) Right Left Pressure 14 13 Pupils Pupils Dark Light Shape React APD Right PERRL 4 3 Round Slow None Left PERRL 4 3 Round Slow None Visual Abarca (Counting fingers) Left Right Full Full Extraocular Movement Right Left Full Full Neuro/Psych Oriented x3: Yes Mood/Affect: Normal Dilation Both eyes: 1.0% Mydriacyl, 2.5% Pritesh Synephrine @ 3:49 PM Additional Tests Color Right Left Ishihara 16/16 16/16 Slit Lamp and Fundus Exam External Exam Right Left External Normal Normal Slit Lamp Exam Right Left Lids/Lashes Normal Normal Conjunctiva/Sclera White and quiet White and quiet Cornea 2+ inf SPEE 2+ SPEE Anterior Chamber Deep and quiet Deep and quiet Iris Round and reactive Round and reactive Lens 2+ NS, 1+ cortical 2+ NS, 1+ cortical Anterior Vitreous Normal Normal Fundus Exam Right Left Disc Normal Normal C/D Ratio 0.3 0.3 Macula Normal Normal Vessels Normal Normal Periphery Normal Normal Refraction Wearing Rx Sphere Cylinder Right -0.75 Sphere Left -1.00 Sphere Age: Unkown age Type: SVL Cycloplegic Refraction Sphere Cylinder Right -1.00 Sphere Left -0.75 Sphere Final Rx Sphere Cylinder Right -1.00 Sphere Left -0.75 Sphere Type: SVL Distance Expiration Date: 04/08/2024 Study findings: RETINAL ANALYSIS OCT OCT of macula shows normal structure with no separation noted. ENGLISH AUTO VISUAL FIELD EXTENDED HVF shows no pattern, focal or widespread defects OD or OS Assessment/Plan ATTESTATION: I have verified the documentation of the medical/ optometry student/ resident including all history, exam and medical decision-making details. I have personally performed an examination and have personally reviewed the data to support my medical decision making as outlined in the medical student's note, and I arrive independently at the same conclusion. Pt referred to us because she will be getting steroid infusions twice a year. Received her first transfusion recently. ?? Age-related cataracts Becoming visually significant ?? Refractive error Updated spec Rx. Pt prefers SVL distance, especially for night driving. Minimal change, update PRN. ?? RTC in 1 year for annual examination or sooner if problems arise Drake Truong, DUNG * Bryanna De Pazh - 04/08/2023 4:17 PM CDT Pt referred to us because she will be getting steroid infusions twice a year. Received her first transfusion recently. Age-related cataracts Becoming visually significant Refractive error Updated spec Rx. Pt prefers SVL distance, especially for night driving. Minimal change, update PRN. RTC in 1 year for annual examination or sooner if problems arise. documented in this encounter Plan of Treatment Upcoming Encounters Date Type Department Care Team (Late st Contact Info) Description 10/31/2024 10:00 AM SUPERVISOR LONG GOODS Office Visit [facility] - Rhe[facility]ology [address] [facility], [place] [address] Antonio Bowles MD [address] [facility] [place] [phone] 02/01/2025 9:00 AM CDT Appointment [facility] [address] [place] [address] Sultana Sullivan MD [address] [place] [phone] documented as of this encounter Results * RETINAL ANALYSIS OCT (04/08/2023 3:00 PM [...] Becker MD OPHTHALMOLOGY SCHED ORD W PACS documented in this encounter Visit Diagnoses Diagnosis Long-term use 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- Primary Long-term use 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- Primary Long-term use 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- Primary documented in this encounter Care Teams Extension Supervisor Relationship Specialty Start Date End Date Sultana Sullivan MD [address] [place] [phone] PCP - General 11/24/22 documented as of this encounter
--- OUTSIDE RECORDS SUMMARY | 2024-10-16 22:30 | XMS_ITS | Encounter Summary ---
Author Organization [facility] Address [address] [facility] [place] [address] Care Team Providers Care Soldering Machine Setter Name Role Phone Sultana Sullivan MD Primary Care Provider [phone] Reason for Visit * Reason Onset Date Comments Med Question 04/01/2023 Encounter Details Date Type Department Care Team (Late Contact Info) Description 04/01/2023 Telephone [facility] - Rheumatology [address] [phone] Saleem Weber MD [address] [place] [phone] Med Question Social History Tobacco Use Types Packs/Day Years [...] as of this encounter Miscellaneous Notes * Telephone Encounter - Saleem Weber MD - 04/01/2023 2:09 PM CDT Called infusion center about her infusion orders. Now scheduled for 04/06 and 04/20/23 documented in this encounter Plan of Treatment Upcoming Encounters Date Type Department Care Team (Late st Contact Info) Description 10/31/2024 10:00 AM AUTOMOTIVE FLEET SUPERVISOR Office Visit [facility] - Rheumatology [address] [facility], [place] [phone] Antonio Bowles MD [facility] [facility] [phone] 02/01/2025 9:00 AM CDT Appointment [facility] [address] [place] [address] Sultana Sullivan MD [address] [place] [phone] documented as of this encounter Visit Diagnoses Not on filedocumented in this encounter Care Teams Soldering Machine Setter Relationship Specialty Start Date End Date Sultana Sullivan MD [address] [place] [phone] PCP - General 11/24/22 documented as of this encounter
--- OUTSIDE RECORDS SUMMARY | 2024-10-16 22:30 | XMS_ITS | Encounter Summary ---
Author Organization [facility] Address [address] [facility] [place] [address] Care Team Providers Care Technical Analyst Name Role Phone Sultana Sullivan MD Primary Care Provider [phone] Encounter Details Date Type Department Care Team (Late Contact Info) Description 06/17/2023 Orders Only [facility] [address] [place] [phone] Saleem Weber MD [address] [place] [address] MD CASE[place] [phone] Rheumatoid arthritis, involving unspecified site, unspecified whether rheumatoid factor present (HCC); 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 Social History Tobacco Use Types Packs/Day Years [...] Encounters Date Type Department Care Team (Late Contact Info) Description 10/31/2024 10:00 AM ADVANCED DEVELOPER Office Visit [facility] - Rhe[facility]ology [address] [place] [phone] Antonio Bowles MD [address] [place] [address] [place] [phone] 02/01/2025 9:00 AM CDT Appointment [facility] [address] [place] [address] Sultana Sullivan MD [facility] [place] [address] documented as of this encounter Procedures Procedure Name Priority Date/Time Associated Diagnosis Comments URINALYSIS MICROSCOPIC ONLY REFLEXED 06/17/2023 4:11 PM CDT SCOTT (SM)+METAL CASKET MAKER ANTIBODY PANEL 06/17/2023 4:11 PM CDT DNA ANTIBODY DS CRITHIDIA IFA 06/17/2023 4:11 PM CDT CHROMATIN ANTIBODY 06/17/2023 4: 11 PM CDT URINALYSIS REFLEX MICROSCOPIC REFLEX CULTURE 06/17/2023 4:11 PM CDT RANULFO W REFLEX DS-DNA+ANIA+SSJ 06/17/2023 4:11 PM CDT C-REACTIVE PROTEIN Routine 06/17/2023 4: 11 PM CDT Rheumatoid arthritis, involving unspecified site, unspecified whether rheumatoid factor present ([facility]) 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 SS-A/SS-B (SJOGREN'S) ANTIBODY PANEL 06/17/2023 4:11 PM CDT HISTONE ANTIBODY 06/17/2023 4:11 PM CDT COMPLEMENT TOTAL 06/17/2023 4:11 PM CDT SCLERODERMA 70 (SCL) ANTIBODY 06/17/2023 4:11 PM CDT DNA ANTIBODY DOUBLE STRANDED 06/17/2023 4:11 PM CDT QUANTIFERON TB-GOLD 06/17/2023 4 :11 PM CDT CULTURE URINE 06/17/2023 4:11 PM CDT SMOOTH MUSCLE ANTIBODY 4:11 PM CDT ERYTHROCYTE SEDIMENTATION RATE Routine 06/17/2023 4:11 PM CDT Rheumatoid arthritis, involving unspecified site, unspecified whether rheumatoid factor present (HCC) 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 CBC W AUTO DIFFERENTIAL Routine 06/17/2023 4:11 PM CDT Rheumatoid arthritis, involving unspecified site, unspecified whether rheumatoid factor present (HCC) 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 COMPLEMENT C4 06/17/2023 4:11 PM CDT COMPREHENSIVE METABOLIC PANEL Routine 06/17/2023 4:11 PM CDT Rheumatoid arthritis, involving unspecified site, unspecified whether rheumatoid factor present (HCC) 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 HEPATITIS B SURFACE ANTIGEN W RFLX CONFIRMATION 06/17/2023 4:11 PM CDT HEPATITIS C ANTIBODY 06/17/2023 4:11 PM CDT COMPLEMENT C3 06/17/2023 4:11 PM CDT documented in this encounter Results * DNA ANTIBODY DS CRITHIDIA IFA (06/17/2023 4:11 PM CDT) dsDNA Antibody Crithidia IFA Negative Negative [facility] INSURANCE BILL 06/17/2023 4:11 PM CDT 06/17/2023 Narrative Resulting Agency Comment Lab Testing performed at: [facility] [address] [facility] ??[facility] [phone] Catherine Hoffman MD LAB - SEROLOGY ORDERABLES [facility] INSURANCE BILL [address] [place] [address] * (ABNORMAL) QUANTIFERON TB-GOLD (06/17/2023 4:11 PM CDT) Pathologist [facility] QuantiFERON Incubation Incubation performed. [facility] INSURANCE BILL [...] for the test. QuantiFERON TB1 Ag Value 0.19 IU/mL [facility] INSURANCE BILL QuantiFERON TB2 Ag Value 0.16 IU/mL [facility] INSURANCE BILL QuantiFERON Nil Value 0.36 IU/mL [facility] INSURANCE BILL Quanti[facility]ON Mitogen Value 0.85 IU/mL [facility] INSURANCE BILL QuantiFERON-TB Gold Plus Indeterminate (A) Negative [facility] INSURANCE BILL Comment: Mitogen (positive control) gave low response. This may occur due to suboptimal pre-analytical handling. Chemiluminescence immunoassay methodology 06/17/2023 4:11 PM CDT 06/17/2023 Narrative Resulting Agency Comment Lab Testing performed at: [facility] [address] [facility] ??[facility] [phone] Catherine Hoffman MD LAB - CHEMISTR Y ORDERABLES [facility] INSURANCE BILL [address] [place] [address] * HISTONE ANTIBODY (06/17/2023 4:11 PM CDT) [facility] Anti-Histone Antibody 0.6 0.0 - 0.9 Units [facility] INSURANCE BILL Comment: ?Negative ?<1.0 ?Weak Positive ?1.0 - 1.5 ?Moderate Positive ??1.6 - 2.5 ?Strong Positive ? >2.5 06/17/2023 4:11 PM CDT 06/17/2023 Narrative Resulting Agency Comment Lab Testing performed at: [facility] ??[facility] [id number] Catherine Hoffman MD LAB - CHEMISTR Y ORDERABLES Performing Organization Address [facility] Co de Phone Number [facility] INSURANCE BILL [address] [place] [address] * RANULFO W REFLEX DS-DNA+ANIA+SSJ (06/17/2023 4:11 PM CDT) RANULFO Direct Negative Negative [facility] INSURANCE BILL 06/17/2023 4:11 PM CDT 06/17/2023 Narrative Resulting Agency Comment Lab Testing performed at: [address] ??[facility] [phone] Catherine Hoffman MD LAB - SEROLOGY ORDERABLES Performing Organization Address [facility] de Phone Number [employer] INSURANCE BILL [address] [place] [address] * DNA ANTIBODY DOUBLE STRANDED (06/17/2023 4:11 PM CDT) Anti-dsDNA Quantitative 2 0 - 9 IU/mL [facility] INSURANCE BILL Comment: ?Negative ?<5 ?Equivocal ??5 - 9 ?Positive ?>9 06/17/2023 4:11 PM CDT 06/17/2023 Narrative Resulting Agency Comment Lab Testing performed at: [facility] ??[facility] [phone] Catherine Hoffman MD LAB - HEMATOLO GY ORDERABLES Performing Organization Address [facility] de Phone Number [facility] INSURANCE BILL [address] [place] [address] * SCLERODERMA 70 (SCL) ANTIBODY (06/17/2023 4:11 PM CDT) Antiscleroderma -70 Antibody <0.2 0.0 - 0.9 [employer] 06/17/2023 4:11 PM CDT 06/17/2023 Narrative Resulting Agency Comment Lab Testing performed at: [address] ??[facility] [id number] Catherine Hoffman MD LAB - CHEMISTR Y ORDERABLES Performing Organization Address [facility] Co de Phone Number [facility] INSURANCE BILL [address] [place] [address] * CHROMATIN ANTIBODY (06/17/2023 4:11 PM CDT) Antichromatin Antibodies <0.2 0.0 - 0.9 [facility] BILL 06/17/2023 4:11 PM CDT 06/17/2023 Narrative Resulting Agency Comment [facility]: [facility] [address] [facility] ??[facility] [id number] Catherine Hoffman MD LAB - SEROLOGY ORDERABLES Performing Organization Address [facility] Co de Phone Number [facility] INSURANCE BILL [address] [place] [address] * SS-A/SS-B (SJOGREN'S) ANTIBODY PANEL (06/17/2023 4:11 PM CDT) Sjogren's Antibodies (SSA) <0.2 0.0 - 0.9 AI [facility] INSURANCE BILL Sjogren's Antibodies (SSB) <0.2 0.0 - 0.9 AI [facility] INSURANCE BILL 06/17/2023 4:11 PM CDT 06/17/2023 Narrative Resulting Agency Comment Lab Testing performed at: [address] ??[facility] [id number] Catherine Hoffman MD LAB - CHEMISTR Y ORDERABLES Performing Organization Address [facility] Co de Phone Number [facility] INSURANCE BILL [address] [place] [address] * SCOTT (SM)+METAL CASKET MAKER ANTIBODY PANEL (06/17/2023 4:11 PM CDT) METAL CASKET MAKER Antibody 0.7 0.0 - 0.9 AI [facility] INSURANCE BILL Scott (ANIA) Antibody <0.2 0.0 - 0.9 AI [facility] INSURANCE BILL 06/17/2023 4:11 PM CDT 06/17/2023 Narrative Resulting Agency Comment Lab Testing performed at: [facility] [address] ??[facility] [id number] Catherine Hoffman MD LAB - SEROLOGY ORDERABLES Performing Organization Address [facility] de Phone Number [facility] INSURANCE BILL [address] [place] [address] * COMPLEMENT TOTAL (06/17/2023 4:11 PM CDT) [...] Resulting Agency Comment Lab Testing performed at: [address] ??[facility] [phone] Catherine Hoffman MD LAB - CHEMISTR Y ORDERABLES [facility] INSURANCE BILL [address] [place] [address] * CULTURE URINE (06/17/2023 4:11 PM CDT) Urine Culture Routine Final report [facility] INSURANCE BILL Result 1 No growth [facility] INSURANCE BILL 06/17/2023 4:11 PM CDT 06/17/2023 Narrative Resulting Agency Comment Lab Testing performed at: [facility] [address] ??[facility] [id number] Catherine Hoffman MD LAB - MICROBIO LOGY ORDERABLES Performing Organization Address City/[facility]/ZIP Co de Phone Number [facility] INSURANCE BILL [address] [place] [address] * (ABNORMAL) URINALYSIS MICROSCOPIC ONLY REFLEXED (06/17/2023 4:11 PM CDT) WBC UA 0-5 0 - 5 /hpf [...] Agency Comment Lab Testing performed at: [facility] [place] [address] [facility] ??[facility] [phone] Catherine Hoffman MD LAB - URINALYS IS ORDERABLES Performing Organization Address [facility] Co de Phone Number [facility] INSURANCE BILL [address] [place] [address] * (ABNORMAL) URINALYSIS REFLEX MICROSCOPIC REFLEX CULTURE (06/17/2023 4:11 PM CDT) Specific [place] UA 1.025 1.005 - 1.030 [facility] INSURANCE [...] Agency Comment Lab Testing performed at: [facility] [place] [address] [facility] ??[facility] [phone] Catherine Hoffman MD LAB - URINALYS IS ORDERABLES Performing Organization Address City/[facility]/ZIP Co de Phone Number [facility] INSURANCE BILL [address] [place] [address] * (ABNORMAL) SMOOTH MUSCLE ANTIBODY (06/17/2023 4:11 PM CDT) Actin (Smooth Muscle) Antibody 29(H) 0 - 19 [facility] Comment: ?Negative ? 0 - 19 ?Weak positive ? 20 - 30 ?Moderate to strong positive ? >30 ?. ?Actin Antibodies are found in 52-85% of patients with ?autoimmune hepatitis or chronic active hepatitis and ?in 22% of patients with primary biliary cirrhosis. 06/17/2023 4:11 PM CDT 06/17/2023 Narrative Resulting Agency Comment Lab Testing performed at: [facility] [address] [facility] ??[facility] [id number] Catherine Hoffman MD LAB - SEROLOGY ORDERABLES [facility] INSURANCE BILL [address] [place] [address] * HEPATITIS B SURFACE ANTIGEN W RFLX CONFIRMATION (06/17/2023 4:11 PM CDT) Pathologist [facility] Hepatitis B Virus Surface Antigen Negative Negative [facility] B[facility] 06/17/2023 4:11 PM CDT 06/17/2023 Narrative Resulting Agency Comment Lab Testing performed at: [facility] [place] [address] ??[facility] [phone] Catherine Hoffman MD LAB - CHEMISTR Y ORDERABLES Performing Organization Address City/[facility]/ZIP Co de Phone Number [facility] INSURANCE BILL [address] [place] [address] * HEPATITIS C ANTIBODY (06/17/2023 4:11 PM [...] Agency Comment Lab Testing performed at: [facility] [place] [address] ??[facility] [phone] Catherine Hoffman MD LAB - CHEMISTR Y ORDERABLES Performing Organization Address [facility]/ZIP Co de Phone Number [facility] INSURANCE BILL [address] [place] [address] * COMPLEMENT C3 (06/17/2023 4:11 PM CDT) Complement C3 156 82 - 167 mg/dL [facility] INSURANCE BILL 06/17/2023 4:11 PM CDT 06/17/2023 Narrative Resulting Agency Comment Lab Testing performed at: [facility] [place] [address] ??[facility] [id number] Catherine Hoffman MD LAB - CHEMISTR Y ORDERABLES [facility] INSURANCE BILL [address] [place] [address] * COMPLEMENT C4 (06/17/2023 4:11 PM CDT) Complement C4 28 12 - 38 mg/dL [facility] INSURANCE BILL 06/17/2023 4:11 PM CDT 06/17/2023 Narrative Resulting Agency Comment Lab Testing performed at: [facility] [place] [address] ??[facility] [id number] Catherine Hoffman MD LAB - SEROLOGY ORDERABLES [facility] INSURANCE BILL [address] [place] [address] * (ABNORMAL) ERYTHROCYTE SEDIMENTATION RATE (06/17/2023 4:11 PM CDT) Erythrocyte Sedimentation Rate Westergren 105(H) 0 - 40 mm/hr [facility] INSURANCE BILL Blood BLOOD SPECIMEN / Unknown 06/17/2023 4:11 PM CDT 06/17/2023 Narrative Resulting Agency Comment Lab Testing performed at: [facility] [place] [address] ??[facility] [phone] Catherine Hoffman MD LAB - HEMATOLO GY ORDERABLES Performing Organization Address City/[facility]/ZIP Co de Phone Number [facility] INSURANCE BILL [address] [place] [address] * (ABNORMAL) C-REACTIVE PROTEIN (06/17/2023 4:11 PM CDT) C-Reactive Protein 72(H) 0 - 10 mg/L [facility] INSURANCE BILL Blood BLOOD SPECIMEN / Unknown 06/17/2023 4:11 PM CDT 06/17/2023 Narrative Resulting Agency Comment Lab Testing performed at: [facility] [place] [address] ??[facility] [id number] Catherine Hoffman MD LAB - CHEMISTR Y ORDERABLES [facility] INSURANCE BILL [address] [place] [address] * (ABNORMAL) COMPREHENSIVE METABOLIC PANEL (06/17/2023 4:11 PM CDT) Glucose 97 70 - 99 mg/dL [facility] INSURANCE BILL BUN 17 8 - 27 mg/dL [facility] INSURANCE BILL Creatinine 0.81 0.57 - 1.00 mg/dL [facility] INSURANCE BILL eGFR by CKD-EPI 81 >59 mL/min/1.7 3 [facility] INSURANCE BILL BUN/Creatinine Ratio 21 12 - 28 [facility] INSURANCE BILL Sodium 140 134 - 144 mmol/L [facility] INSURANCE BILL Potassium 4.7 3.5 - 5.2 mmol/L [facility] INSURANCE BILL Chloride 101 96 - 106 mmol/L [facility] INSURANCE BILL CO2 24 20 - 29 mmol/L [facility] INSURANCE BILL Calcium 9.3 8.7 - 10.3 mg/dL [facility] INSURANCE BILL Protein Total 7.3 6.0 - 8.5 g/dL [facility] INSURANCE BILL Albumin 3.7(L) 3.9 - 4.9 g/dL [facility] INSURANCE BILL Globulin Total 3.6 1.5 - 4.5 g/dL [facility] INSURANCE BILL Albumin/Globulin Ratio 1.0(L) 1.2 - 2.2 [facility] INSURANCE BILL Bilirubin Total <0.2 0.0 - 1.2 mg/dL [facility] INSURANCE BILL Alkaline Phosphatase 86 44 - 121 IU/L [facility] INSURANCE BILL AST 10 0 - 40 IU/L [facility] INSURANCE BILL ALT 7 0 - 32 IU/L [facility] INSURANCE BILL Blood BLOOD SPECIMEN / Unknown 06/17/2023 4:11 PM CDT 06/17/2023 Narrative Resulting Agency Comment Lab Testing performed at: [address] ??[facility] [id number] Catherine Hoffman MD LAB - CHEMISTR Y ORDERABLES [facility] INSURANCE BILL [address] [place] [address] * (ABNORMAL) CBC WITH DIFFERENTIAL (06/17/2023 4:11 PM CDT) WBC 6.2 3.4 - 10.8 x10E3/uL [facility] INSURANCE BILL RBC 4.81 3.77 - 5.28 x10E6/uL [facility] INSURANCE BILL Hemoglobin 11.1 11.1 - 15.9 g/dL [facility] INSURANCE BILL Hematocrit 36.6 34.0 - 46.6 % [facility] INSURANCE BILL MCV 76(L) 79 - 97 fL [facility] INSURANCE BILL MCH 23.1(L) 26.6 - 33.0 pg [facility] INSURANCE BILL MCHC 30.3(L) 31.5 - 35.7 g/dL [facility] INSURANCE BILL RDW 14.6 11.7 - 15.4 % [facility] INSURANCE BILL Platelet Count 808(HH) 150 - 450 x10E3/uL [facility] INSURANCE BILL Granulocytes % 60 Not Estab. % [facility] INSURANCE BILL Lymphocytes % 18 Not Estab. % [facility] INSURANCE BILL Monocytes % 14 Not Estab. % [facility] INSURANCE BILL Eosinophils % 7 Not Estab. % [facility] INSURANCE BILL Basophils % 1 Not Estab. % [facility] INSURANCE BILL Immature Cells NOT AVAILABLE [facility] INSURANCE BILL Comment:Result cannot be obt ained for this observation. Granulocytes Absolute 3.7 1.4 - 7.0 x10E3/uL [facility] INSURANCE BILL Lymphocytes Absolute 1.1 0.7 - 3.1 x10E3/uL [facility] INSURANCE BILL Monocytes Absolute 0.9 0.1 - 0.9 x10E3/uL [facility] INSURANCE BILL Eosinophils Absolute 0.4 0.0 - 0.4 x10E3/uL [facility] INSURANCE BILL Basophils Absolute 0.0 0.0 - 0.2 x10E3/uL [facility] INSURANCE BILL Immature Granulocytes 0 Not Estab. % [facility] INSURANCE BILL Immature Granulocytes Absolute 0.0 0.0 - 0.1 x10E3/uL [facility] INSURANCE BILL nRBC NOT AVAILABLE [facility] INSURANCE BILL Comment:Result cannot be obt ained for this observation. Comment Hematology NOT AVAILABLE [facility] INSURANCE BILL Comment: A hand-written panel/profile was received from your office. In accordance with the [facility] Ambiguous Test Code Policy dated April 2003, we have assigned CBC with Differential/Platelet, Test Code #149807 to this request. If this is not the testing you wished to receive on this specimen, please contact the [facility] Client Inquiry/ Technical Services Department to clarify the test order. We appreciate your business. Result cannot be obtained for this observation. Blood BLOOD SPECIMEN / Unknown 06/17/2023 4:11 PM CDT 06/17/2023 Narrative Resulting Agency Comment Lab Testing performed at: [facility] ??[facility] [phone] Catherine Hoffman MD LAB - HEMATOLO GY ORDERABLES [facility] INSURANCE BILL [address] [place] [address] documented in this encounter Visit Diagnoses Diagnosis Rheumatoid arthritis, involving unspecified site, unspecified whether rheumatoid factor present (HCC) 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 Encounter for therapeutic drug monitoring documented in this encounter Care Teams Technical Analyst Relationship Specialty Start Date End Date Sultana Sullivan MD [address] [place] [phone] PCP - General 11/24/22 documented as of this encounter
--- OUTSIDE RECORDS SUMMARY | 2024-10-16 22:30 | XMS_ITS | Encounter Summary ---
Author Organization [facility] Address [address] [facility] [place] [address] Care Team Providers Care Site Director Name Role Phone Sultana Sullivan MD Primary Care Provider [phone] Encounter Details Date Type Department Care Team (Late st Contact Info) Description 04/20/2024 12:59 PM CDT - 04/20/2024 11:59 PM CDT Hospital Encounter [facility] OT [address] [place] [phone] Pepe Witt MD [address] [facility] [place] [address] Ervin Rodriguez OT Hand/Upper Extremity Surgery Discharge Disposition: Home or Self Care Social [...] 01/06/2024 07/06/2024 documented as of this encounter Progress Notes * Ervin Rodriguez, OT - 04/20/2024 1:00 PM CDT [facility] Physical Medicine and Rehabilitation Outpatient Progress Note PATIENT NAME:Sultana Vincent DATE:04/20/2024 PROVIDER: Dr Witt Medical Diagnosis: RA Clinical Diagnosis: Decreased range of motion and Decreased strength Date of injury: NA Date of surgery: NA VISIT # 4 of 4 (exp on 04/27/24) SUBJECTIVE: Pt reports she has been wearing the extension splint nearly all the time, states she does not see any improvement in her digital extension. Pt reports she does not want surgical intervention on hand. Patient voices pain level of 0/10 at rest currently. In response to pain, therapy: NA OBJECTIVE: Skin observed to be intact. New measurements obtained. Patient/Family Education Given: no need for further aggressive stretching, start gentle maintenancestretching only to prevent flexion contracture and allow hygiene of palm Need To Reassess: L RF SF MP passive ext -85 -75 ASSESSMENT/PROGRESS TOWARDS GOALS: Pt is without improvement in passive MP extension of L RF or SF.Pt to benefit from soft carrot splint for night use to maintain access to palm for hygiene (2 brands printed for pt from [employer]). No further skilled OT indicated. Response to treatment: poor QDash:17(14%) Plan: D/C OT Goals: STG met, LTG not met Ex x 1 [phone] documented in this encounter Plan of Treatment Upcoming Encounters Date Type Department Care Team (Late st Contact Info) Description 10/31/2024 10:00 AM WINDOWS TECHNICAL SPECIALIST Office Visit [facility] - Rheumatology [address] [place] [address], [place] [phone] Antonio Bowles MD [address] [place] [address] [place] [phone] 02/01/2025 9:00 AM CDT Appointment [facility] [address] [place] [phone] Sultana Sullivan MD [address] [place] [phone] documented as of this encounter Visit Diagnoses Not on filedocumented in this encounter Care Teams Site Director Relationship Specialty Start Date End Date Sultana Sullivan MD [address] [place] [address] PCP - General 11/24/22 documented as of this encounter
--- OUTSIDE RECORDS SUMMARY | 2024-10-16 22:30 | XMS_ITS | Encounter Summary ---
Author Organization [facility] Address [address] [facility] [place] [address] Care Team Providers Care Blow Mold Machine Operator Name Role Phone Sultana Sullivan MD Primary Care Provider [phone] Encounter Details Date Type Department Care Team (Latest Contact Info) Description 04/08/2023 Travel Social History Tobacco Use Types Packs/Day [...] st Contact Info) Description 10/31/2024 10:00 AM BENCH SHEAR OPERATOR [facility] [address] [place] [address], [place] [phone] Antonio Bowles MD [address] [place] [address] [place] [phone] 02/01/2025 9:00 AM CDT Appointment [facility] [address] [place] [phone] Sultana Sullivan MD [address] [place] [phone] documented as of this encounter Visit Diagnoses Not on filedocumented in this encounter Care Teams Blow Mold Machine Operator Relationship Specialty Start Date End Date Sultana Sullivan MD [address] [place] [phone] PCP - General 11/24/22 documented as of this encounter
--- OUTSIDE RECORDS SUMMARY | 2024-10-16 22:30 | XMS_ITS | Encounter Summary ---
Author Organization [facility] Address [address] [place] [address] Care Team Providers Care Peanut Farmer Name Role Phone Sultana Sullivan MD Primary Care Provider [phone] Reason for Visit * Oncology Prior Authorization (Routine) - Closed Specialty Diagnoses / Procedures Referred By Contac t Referred To Contact Diagnoses Rheumatoid arthritis involving multiple sites with positive rheumatoid factor (HCC) Procedures SC INJ RITUXIMAB 10 MG Catherine Hoffman MD [address] [place] [address] [facility] [address] [place] [address] Referral ID Status Reason Start Date Expiration Date Visits Re quested Visits Authorized [id number] Closed 03/24/2023 10/09/2024 4 8 Encounter Details Date Type Department Care Team (Latest Contact Info) Description 04/06/2023 7:50 AM CDT - 04/06/2023 11:59 PM CDT Hospital Encounter [facility] [address] [place] [phone] Catherine Hoffman MD [address] [place] [address] Discharge Disposition: Home or Self Care Social [...] Sign Reading Time Taken Comments Blood Pressure 126/73 04/06/2023 8:00 AM CDT Pulse 94 04/06/2023 8:00 AM CDT Temperature 36.3 ??C (97.3 ??F) 04/06/2023 8:00 AM CD T Respiratory Rate 20 04/06/2023 8:00 AM CDT Oxygen Saturation 100% 04/06/2023 8:00 AM CDT Inhaled Oxygen Concentration - - Weight 47.5 kg (104 lb 12.8 oz) 04/06/2023 8:00 AM CDT Height - - Body Mass Index 20.47 02/09/2023 11:22 AM CDT documented in this encounter Medications at Time of Discharge Medication Sig Dispensed Refills Start Date End Date metroNIDAZOLE (Flagyl) 500 MG tablet Take 1 (one) tablet by mouth 03/04/2023 01/18/2024 naproxen (Naprosyn) 500 MG tabletIndications:Rheum atoid arthritis, involving unspecified site, unspecified whether rheumatoid factor present (HCC) Take 1 (one) tablet by mouth 2 times daily 180 tablet 3 01/11/2023 01/06/2024 nitrofurantoin monohyd macro crystals (Macrobid) 100 MG capsule TAKE 1 CAPSULE BY MOUTH EVERY 12 HOURS FOR 7 DAYS 02/17/2023 01/18/2024 vitamin D, ergocalciferol, (Drisdol) 1.25 MG (45687 UT) capsule Take 1 (one) capsule by mouth every 7 days 06/02/2022 01/18/2024 documented as of this encounter Plan of Treatment Upcoming Encounters Date Type Department Care Team (Late st Contact Info) Description 10/31/2024 10:00 AM SAP ENTERPRISE PORTAL CONSULTANT Office Visit [facility] - Rheumatology [address] [place] [address], [place] [address] Antonio Bowles MD [address] [place] [address] [place] [address] 02/01/2025 9:00 AM CDT Appointment [facility] [place] [phone] Sultana Sullivan MD [address] [place] [phone] documented as of this encounter Visit Diagnoses Diagnosis Rheumatoid arthritis involving multiple sites with positive rheumatoid factor (HCC)- Primary documented in this encounter Administered Medications Inactive Administered Medications - up to 3 most recent administrations Medication Order MAR Action Action Date Dose Rate Site acetaminophen (Tylenol) tablet 650 mg 650 mg, Oral, ONCE, 1 dose, On Tue04/06/23 at 0845, Maximum allowable Acetaminophen amount = 4 Grams / 24 hours. Patient preference for lesser PRN pain meds may be honored when the patient requests a less strong medication, a lower dose, or a less intrusive route of administration when the lesser drug, dose and route have been ordered for the patient. This patient request must be documented in the MAR. $ Given 04/06/2023 9:14 AM CDT 650 mg methylPREDNISolone sod succ (SOLU-Medrol) injection 125 mg 125 mg, Intravenous, ONCE, 1 dose, On Tue04/06/23 at 0845 $ Given 04/06/2023 9:15 AM CDT 125 mg riTUXimab (Rituxan) 1,000 mg in 0.9% NaCl IV 500 mL infusion 1,000 mg, Intravenous, CONTINUOUS, Starting on Tue04/06/23 at 0915, Until Tue04/06/23 at 1514, Premedications should be administered at least 30 minutes prior to infusion. Initial Titration Instructions or problems tolerating previous infusion Initiate at 50 mg/hr (25 mL/hr with VTBI: 12.5 mL) for 30 min. If tolerated, increase rate to 100 mg/hr (50 mL/hr with VTBI: 25 mL) for 30 min. If tolerated, increase rate to 150 mg/hr (75 mL/hr with VTBI: 37.5 mL) for 30 min. If tolerated, increase rate to 200 mg/hr (100 mL/hr with VTBI: 50 mL) for 30 min. If tolerated, increase rate to 250 mg/hr (125 mL/hr with VTBI: 62.5 mL) for 30 min. If tolerated, increase rate to 300 mg/hr (150 mL/hr with VTBI: 75 mL) for 30 min. If tolerated, increase rate to 350 mg/hr (175 mL/hr with VTBI: 87.5 mL) for 30 min If tolerated, increase rate to 400 mg/hr (200 mL/hr) until bag contents are completely infused. If a reaction were to occur, after symptoms have resolved, resume infusion at a 50% reduction in rate. For subsequent infusion if previously tolerated Initiate at 100 mg/hr (50 mL/hr with VTBI 25 mL) for 30 min If tolerated, increase rate to 200 mg/hr (100 mL/hr with VTBI: 50 mL) for 30 min. If tolerated, increase rate to 300 mg/hr (150 mL/hr with VTBI: 75 mL) for 30 min If tolerated, increase rate to 400 mg/hr (200 mL/hr) until bag contents are completely infused. If a reaction were to occur, after symptoms have resolved, resume infusion at a 50% reduction in rate. $ New Bag/Syringe 04/06/2023 9:53 AM CDT 1,000 mg 25 mL/hr documented in this encounter Care Teams Peanut Farmer Relationship Specialty Start Date End Date Sultana Sullivan MD [address] [place] [phone] PCP - General 11/24/22 documented as of this encounter
--- OUTSIDE RECORDS SUMMARY | 2024-10-16 22:30 | XMS_ITS | Encounter Summary ---
Author Organization [facility] Address [address] [facility] [place] [address] Care Team Providers Care Cabin Outfitter Name Role Phone Sultana Sullivan MD Primary Care Provider [phone] Encounter Details Date Type Department Care Team (Late Contact Info) Description 07/13/2023 Orders Only [facility] [address] [place] [address] Gosia Bear, MAYI-NET PROGRAMMER [address] [place] [phone] Social History Tobacco Use Types Packs/Day Years [...] (Late Contact Info) Description 10/31/2024 10:00 AM RANCH SUPERVISOR Office Visit [facility] - Rheumatology [address] [place] [address] [place] [phone] Antonio Bowles MD [address] [place] [address] [place] [phone] 02/01/2025 9:00 AM CDT Appointment [facility] [address] [place] [address] Sultana Sullivan MD [address] [place] [address] documented as of this encounter Visit Diagnoses Not on filedocumented in this encounter Care Teams Cabin Outfitter Relationship Specialty Start Date End Date Sultana Sullivan MD [address] [place] [phone] PCP - General 11/24/22 documented as of this encounter
--- OUTSIDE RECORDS SUMMARY | 2024-10-16 22:30 | XMS_ITS | Encounter Summary ---
Author Organization [facility] Address [address] [facility] [place] [address] Care Team Providers Care Supervisor Airplane Flight Attendant Name Role Phone Sultana Sullivan MD Primary Care Provider [phone] Reason for Visit * Reason Comments Pain Hand * Consultation (Routine) - Pending Review Specialty Diagnoses / Procedures Referred By Contac t Referred To Contact Diagnoses Rheumatoid arthritis, involving unspecified site, unspecified whether rheumatoid factor present (HCC) Catherine Hoffman MD [address] [place] [address] [place] [address] Referral ID Status Reason Start Date Expiration Date Visits Requested Visits Authorized [id number] Pending Review Specialty Services Required 01/18/2024 01/17/2025 1 1 Encounter Details Date Type Department Care Team (Late st Contact Info) Description 02/07/2024 12:45 PM CDT Office Visit [facility] - Orthopedics [address] [place] [address], [place] [address] Pepe Witt MD [address] [place] [address] [place] [address] Rheumatoid arthritis involving multiple sites with positive rheumatoid factor (HCC) (Primary Dx) Social History Tobacco Use Types [...] as of this encounter Progress Notes * Ted Arellano MD - 02/09/2024 7:02 AM CDT ORTHOPEDIC SURGERY / HAND SURGERY / MICROSURGERY OUTPATIENT NEW PATIENT Sultana Vincent 63 year old female CSN: [id number] Date of service: 02/07/2024 [facility] Ms. Vincent is a 63 year old female who presents today for evaluation of her bilateral hands. Thepatient has a history of rheumatoid arthritis who is currently on infusions, but it is not completely controlled. The patient has deformity of both of her hands that have drastically worsened over the past 2 years despite treatment. The patient says that she is here to see what her options are for treatment. 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 She says that she would like to avoid extensive procedures if possible. She denies any numbness or tingling and has no other complaints at this time. PMHx Past Medical History: Diagnosis Date ??? Former smoker quit 03/2021 ??? Thrombocytosis saw heme onc 2019, no etiology found PSHx Past Surgical History: Procedure Laterality Date ??? Bilateral Tubal Ligation (BTL) Social Hx Social History Tobacco Use ??? Smoking status: Former Packs/day: 0.50 Years: 20.00 Additional pack years: 0.00 Total pack years: 10.00 Types: Cigarettes Quit date: 03/10/2021 Years since quittin.9 ??? Smokeless tobacco: Never Substance Use Topics ??? Alcohol use: Never Family Hx family history is not on file. Allergies No Known Allergies Medications Current Outpatient Medications Medication ??? naproxen (Naprosyn) 500 MG tablet No current facility-administered medications for this visit. Vitals There were no vitals taken for this visit. Physical Exam General appearance: alert, cooperative, no distress bilateral upper extremity examination: Inspection: -swelling: mild over the MCPJs -open wound: No Perfusion: -warm, well perfused upper limb, with normal capillary refill -congestion: No Sensation: -intact to light touch in R/M/U nerve Motor: -Stiffness: Yes in the entire hand -ROM: able to bring fingers to a neutral position except for the left ring and small fingers. Thosefingers are stuck in a flexed position Additional findings: tenderness over the A1 loco of the left ring finger Imaging Images independently reviewed in clinic: bilateral hand X-rays demonstrates severe rheumatoid deformity of both hands with the left having flexed position of the two ulnar fingers Assessment and Plan 63 year old female bilateral diffuse rheumatoid arthritis with possible left ring finger trigger finger 1. Ms. Vincent was counseled as to her diagnosis and demonstrated understanding 2. Recommendations: Due to patient wishes, we will start with conservative management. We recommenda steroid injection of the left ring finger to see if we are able to get the patient out of a flexed position. 3. Steroid injection of the left ring finger given today 4. Restrictions: none 5. Follow up with Dr. Witt: in 3-4 weeks 6. She will call in the interim with any questions or concerns. XR needed at follow up: NO Ted Arellano MD 02/09/2024 7:02 AM Associated attestation - Pepe Witt MD - 02/14/2024 7:29 AM CDT ATTENDING ATTESTATION: I have seen and assessed the patient with the resident. I have edited the above note and agree withthe assessment and plan. Pepe Witt MD * Jane Hickey RN - 02/07/2024 12:25 PM CDT Pt here for bilateral hand pain. Pain 12/17. documented in this encounter Procedure Notes * Ted Arellano MD - 02/09/2024 7:09 AM CDT Orthopaedic Hand Surgery Procedure Note Diagnosis: Left Trigger Finger Procedure: Injection of Corticosteroid into the left ring Finger Indications: Sultana Vincent is a 63 year old female who has left trigger finger in the ring finger. Procedure Details: The patient was informed of her condition, and the potential benefits of injection of steroid. The patient was counseled as to the risks of the procedure including the risk of skindiscoloration. The patient was understanding and agreeable. The patient's left hand was placed ontothe table with the palm up. The area was prepped with alcohol. Next, a topical anesthetic was used to numb the skin and using a 25 Ga needle, a solution of 0.6 cc 1% lidocaine without epinephrine and0.4 cc of Kenalog 40mg was injected at the level of the A1 loco level. The needle was removed andthe needle site dressed with a semi-sterile bandage. The patient tolerated the procedure well. Associated attestation - Pepe Witt MD - 02/13/2024 4:53 AM CDT Attending Attestation I was present for all portions of this procedure. Pepe Witt MD documented in this encounter Plan of Treatment Upcoming Encounters Date Type Department Care Team (Late st Contact Info) Description 10/31/2024 10:00 AM MOBILE APPLICATION TESTER Office Visit [facility] Rhe[facility]ology [address] [place] [address] [place] [address] Antonio Bowles MD [address] [place] [address] [place] [phone] 02/01/2025 9:00 AM CDT Appointment [facility] [address] [place] [address] Sultana Sullivan MD [address] [place] [phone] documented as of this encounter Visit Diagnoses Diagnosis Rheumatoid arthritis involving multiple sites with positive rheumatoid factor (HCC)- Primary documented in this encounter Administered Medications Inactive Administered Medications - up to 3 most recent administrations Medication Order MAR Action Action Date Dose Rate Site lidocaine (Xylocaine) 1 % injection Infiltration, ONCE, 1 dose, On Tue02/07/24 at 1400 $ Given 02/07/2024 2:04 PM CDT 0.5 mL Finger Left Hand triamcinolone acetonide (Kenalog-40) injection 20 mg 20 mg, Other, ONCE, 1 dose, On Tue02/07/24 at 1400, Shake well before using. $ Given 02/07/2024 2:05 PM CDT 20 mg Finger Left Hand documented in this encounter Care Teams Supervisor Airplane Flight Attendant Relationship Specialty Start Date End Date Sultana Sullivan MD [address] [place] [phone] PCP - General 11/24/22 documented as of this encounter
--- OUTSIDE RECORDS SUMMARY | 2024-10-16 22:30 | XMS_ITS | Encounter Summary ---
Author Organization [facility] Address [address] [place] [address] Care Team Providers Care Reel Cutter Name Role Phone Sultana Sullivan MD Primary Care Provider [phone] Encounter Details Date Type Department Care Team (Late Contact Info) Description 04/13/2024 Orders Only [facility] [address] [place] [phone] Saleem Weber MD [address] [place] [address] MD [place] [phone] Rheumatoid arthritis, involving unspecified site, unspecified whether rheumatoid factor present (HCC); 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; Long-term use 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; 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; Arthralgia, unspecified joint; High risk medications (not anticoagulants) long-term use [...] Upcoming Encounters Date Type Department Care Team ([facility] Contact Info) Description 10/31/2024 10:00 AM SET O TYPE OPERATOR Office Visit [facility] Rhe[facility] [address] [place] [phone] SameAntonio flores MD [address] [facility] [place] [address] 02/01/2025 9:00 AM CDT Appointment [facility] [address] [place] [address] Sultana Sullivan MD [address] [place] [phone] documented as of this encounter Visit Diagnoses Diagnosis Rheumatoid arthritis, involving unspecified site, unspecified whether rheumatoid factor present (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
--- OUTSIDE RECORDS SUMMARY | 2024-10-16 22:30 | XMS_ITS | Encounter Summary ---
Author Organization [facility] Address [address] [place] [address] Care Team Providers Care Follow Up Clerk Name Role Phone Sultana Sullivan MD Primary Care Provider [phone] Encounter Details Date Type Department Care Team (Latest Contact Info) Description 04/06/2023 Travel Social History Tobacco Use Types Packs/Day [...] st Contact Info) Description 10/31/2024 10:00 AM PERIPHERAL VASCULAR TECH [facility] [address] [place] [address], [place] [phone] Antonio Bowles MD [address] [place] [address] [place] [phone] 02/01/2025 9:00 AM CDT Appointment [facility] [address] [place] [phone] Sultana Sullivan MD [address] [place] [phone] documented as of this encounter Visit Diagnoses Not on filedocumented in this encounter Care Teams Follow Up Clerk Relationship Specialty Start Date End Date Sultana Sullivan MD [address] [place] [phone] PCP - General 11/24/22 documented as of this encounter
--- OUTSIDE RECORDS SUMMARY | 2024-10-16 22:30 | XMS_ITS | Encounter Summary ---
Author Organization [facility] Address [address] [place] [address] Care Team Providers Care Editor Producer Name Role Phone Sultana Sullivan MD Primary Care Provider [phone] Encounter Details Date Type Department Care Team (Late Contact Info) Description 04/29/2023 Orders Only [facility] [address] [place] [phone] Saleem Weber MD [address] [place] [address] [place] [phone] Rheumatoid arthritis, involving unspecified site, unspecified whether rheumatoid factor present (HCC); 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; Long-term use 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; 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 Social History Tobacco Use Types Packs/Day Years [...] (Late Contact Info) Description 10/31/2024 10:00 AM FOOD SERVICE AGENT Office Visit [facility] Rhe[facility]ology [address] [place] [phone] Antonio Bowles MD [address] [place] [address] [place] [address] 02/01/2025 9:00 AM CDT Appointment [facility] [address] [place] [address] Sultana Sullivan MD [address] [place] [phone] documented as of this encounter Visit Diagnoses Diagnosis Rheumatoid arthritis, involving unspecified site, unspecified whether rheumatoid factor present (HCC) 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 Encounter for therapeutic drug monitoring Long-term use 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
--- OUTSIDE RECORDS SUMMARY | 2024-10-16 22:30 | XMS_ITS | Encounter Summary ---
Author Organization [facility] Address [address] [facility] [place] [address] Care Team Providers Care Cardiac Exercise Specialist Name Role Phone Sultana Sullivan MD Primary Care Provider [phone] Reason for Visit * Reason Onset Date Comments Results 06/24/2023 Encounter Details Date Type Department Care Team (Late st Contact Info) Description 06/24/2023 Telephone [facility] [address] [place] [address] [place] [phone] Saleem Weber MD [address] [place] [phone] Results Social History Tobacco Use Types Packs/Day Years [...] Telephone Encounter - Saleem Weber MD - 06/24/2023 10:41 AM CDT Called and left a message. Would like to get repeat CBC as she had elevated platelet count on recent blood work. Ordered it at [facility] and asked her to contact us if any other lab preferred or had questions. documented in this encounter Plan of Treatment Upcoming Encounters Date Type Department Care Team (Late st Contact Info) Description 10/31/2024 10:00 AM CASINO CONTROLLER Office Visit [facility] - Rheumatology [facility], [place] [address] Antonio Bowles MD [address] [place] [address] [place] [address] 02/01/2025 9:00 AM CDT Appointment [facility] [address] [place] [address] Sultana Sullivan MD [address] [place] [phone] documented as of this encounter Visit Diagnoses Diagnosis Rheumatoid arthritis, involving unspecified site, unspecified whether rheumatoid factor present (HCC)- Primary documented in this encounter Care Teams Cardiac Exercise Specialist Relationship Specialty Start Date End Date Sultana Sullivan MD [address] [place] [phone] PCP - General 11/24/22 documented as of this encounter
--- OUTSIDE RECORDS SUMMARY | 2024-10-16 22:30 | XMS_ITS | Encounter Summary ---
Author Organization [facility] Address [address] [facility] [place] [address] Care Team Providers Care Echo Vascular Tech Name Role Phone Sultana Sullivan MD Primary Care Provider [phone] Reason for Visit * Oncology Prior Authorization (Routine) - Closed Specialty Diagnoses / Procedures Referred By Contac t Referred To Contact Diagnoses Rheumatoid arthritis involving multiple sites with positive rheumatoid factor (HCC) Procedures SD INJ RITUXIMAB 10 MG Catherine Hoffman MD [address] [place] [address] [facility] [address] [place] [address] Referral ID Status Reason Start Date Expiration Date Visits Re quested Visits Authorized [id number] Closed 03/24/2023 10/09/2024 4 8 Encounter Details Date Type Department Care Team (Latest Contact Info) Description 08/04/2023 8:50 AM CDT - 08/04/2023 11:59 PM CDT Hospital Encounter [facility] [address] [place] [address] Catherine Hoffman MD [address] [place] [address] Discharge Disposition: Home or Self [...] Sign Reading Time Taken Comments Blood Pressure 120/82 08/04/2023 9:10 AM CDT Pulse 74 08/04/2023 9:10 AM CDT Temperature 37.2 ??C (98.9 ??F) 08/04/2023 9:10 AM CD T Respiratory Rate 18 08/04/2023 9:10 AM CDT Oxygen Saturation 100% 08/04/2023 9:10 AM CDT Inhaled Oxygen Concentration - - Weight 47.9 kg (105 lb 9.6 oz) 08/04/2023 9:10 A M CDT Height 152.4 cm (5') 08/04/2023 9:10 AM CDT Body Mass Index 20.62 08/04/2023 9:10 AM CDT documented in this encounter Medications [...] 01/18/2024 vitamin D, ergocalciferol, (Drisdol) 1.25 MG (74063 UT) capsule Take 1 (one) capsule by mouth every 7 days 06/02/2022 01/18/2024 documented as of this encounter Plan of Treatment Upcoming Encounters Date Type Department Care Team (Late st Contact Info) Description 10/31/2024 10:00 AM SPACE OFFICER Office Visit [facility] - Rheumatology [address] [place] [address], [place] [phone] Antonio Bowles MD [address] [place] [address] [place] [address] 02/01/2025 9:00 AM CDT Appointment [facility] [address] [place] [address] [place] [address] [place] [phone] documented as of this encounter Visit Diagnoses Diagnosis Rheumatoid arthritis involving multiple sites with positive rheumatoid factor (HCC)- Primary documented in this encounter Administered Medications Inactive Administered Medications - up to 3 most recent administrations Medication Order MAR Action Action Date Dose Rate Site acetaminophen (Tylenol) tablet 650 mg 650 mg, Oral, ONCE, 1 dose, On Fern 08/04/23 at 0915, Maximum allowable Acetaminophen amount = [...] be documented in the MAR. $ Given 08/04/2023 9:28 AM CDT 650 mg methylPREDNISolone sod succ (SOLU-Medrol) injection 125 mg 125 mg, Intravenous, ONCE, 1 dose, On Fern 08/04/23 at 0915 $ Given 08/04/2023 9:28 AM CDT 125 mg riTUXimab (Rituxan) 1,000 mg in 0.9% NaCl IV 500 mL infusion 1,000 mg, Intravenous, CONTINUOUS, Starting on Fern 08/04/23 at 0945, Until Fern 08/04/23 at 1544, Premedications should be administered at least 30 minutes prior to infusion. For subsequent infusion if previously tolerated Initiate [...] 50% reduction in rate. $ New Bag/Syringe 08/04/2023 10:17 AM CDT 1,000 mg 50 mL/hr documented in this encounter Care Teams Echo Vascular Tech Relationship Specialty Start Date End Date Sultana Sullivan MD [address] [place] [phone] PCP - General 11/24/22 documented as of this encounter
--- OUTSIDE RECORDS SUMMARY | 2024-10-16 22:30 | XMS_ITS | Encounter Summary ---
Author Organization [facility] Address [address] [place] [address] Care Team Providers Care Casino Investigator Name Role Phone Sultana Sullivan MD Primary Care Provider [phone] Encounter Details Date Type Department Care Team (Late st Contact Info) Description 04/13/2024 1:00 PM CDT - 04/13/2024 11:59 PM CDT Hospital Encounter [facility] [address] [place] [phone] Pepe Witt MD [address] [facility] [place] [address] Ervin Rodriguez OT Hand/Upper Extremity Surgery Discharge [...] of this encounter Progress Notes * Ervin Rodriguez OT - 04/13/2024 1:03 PM CDT [facility] Physical Medicine and Rehabilitation Outpatient Progress Note PATIENT NAME:Sultana Vincent DATE:04/13/2024 PROVIDER: Dr Witt Medical Diagnosis: RA Clinical Diagnosis: Decreased range of motion and Decreased strength Date of injury: NA Date of surgery: NA VISIT # 3 (exp on 04/27/24) SUBJECTIVE: Pt reports her knuckles are a little extended from her baseline, states she only has pain when she first removes the splint. Patient voices pain level of 0/10 at rest currently. In response to pain, therapy: NA OBJECTIVE: Pt arrives with L UE ext splint on. Skin observed to be intact. Instructed pt in PROM toRF-SF MP extension during paraffin 4 long sets to tolerance, splint re-applied, educated on purchasing soft rest hand splint for night use for future use after next visit's D/C Note for maintenance of ROM. Patient/Family Education Given: OT POC for 1 more visit, splinting for digital ext Need To Reassess: L RF SF MP passive ext -81 -70 ASSESSMENT/PROGRESS TOWARDS GOALS: Pt continues to benefit from skilled OT to increase digital extension. Response to treatment: poor, will re-assess and D/C next visit Plan: continue per plan Goals: Continue Ex x 2 [phone] documented in this encounter Plan of Treatment Upcoming Encounters Date Type Department Care Team (Late st Contact Info) Description 10/31/2024 10:00 AM SIMULATION EDUCATOR Office Visit [facility] - Rheumatology [address] [place] [address], [place] [phone] Antonio Bowles MD [address] [place] [address] [place] [phone] 02/01/2025 9:00 AM CDT Appointment [facility] [address] [place] [address] Sultana Sullivan MD [address] [place] [phone] documented as of this encounter Visit Diagnoses Not on filedocumented in this encounter Care Teams Casino Investigator Relationship Specialty Start Date End Date Sultana Sullivan MD [address] [place] [phone] PCP - General 11/24/22 documented as of this encounter
--- OUTSIDE RECORDS SUMMARY | 2024-10-16 22:30 | XMS_ITS | Encounter Summary ---
Author Organization [facility] Address [address] [facility] [place] [address] Care Team Providers Care Heat Treat Puller Name Role Phone Sultana Sullivan MD Primary Care Provider [phone] Reason for Visit * Reason Onset Date Comments Medication Issue 03/23/2023 Infusion Encounter Details Date Type Department Care Team (Late st Contact Info) Description 03/23/2023 Telephone [facility]ology [address] [place] [phone] Saleem Weber MD [facility] [address] Medication Issue (Infusion) Social History Tobacco Use Types Packs/Day Years [...] on file Sexual Orientation Not on file COVID-19 Exposure Response Date Recorded In the last 10 days, have yo u been in contact with someone who was confirmed or suspected to have Coronavirus/COVID-19? No / Unsure 03/01/2023 3:13 PM CDT documented as of this encounter Miscellaneous Notes * Telephone Encounter - Mary Berry LPN - 03/23/2023 3:25 PM CDT Patient message inquiring when the medicine and prednisone. Call returned, Patient inquiring about her infusion. I gave her the number to [facility] to check on approval. Reviewed chart, infusion in Media from 02/10/23 and I see nothing else. Wanted to inform you that Patient has not gotten her infusion . documented in this encounter Plan of Treatment Upcoming Encounters Date Type Department Care Team (Late st Contact Info) Description 10/31/2024 10:00 AM TALENT DIRECTOR Office Visit [facility] - Rheumatology [address] [place] [address], [place] [address] Antonio Bowles MD [address] [place] [address] [place] [phone] 02/01/2025 9:00 AM CDT Appointment [facility] [address] [place] [address] Sultana Sullivan MD [address] [place] [phone] documented as of this encounter Visit Diagnoses Not on filedocumented in this encounter Care Teams Heat Treat Puller Relationship Specialty Start Date End Date Sultana Sullivan MD [address] [place] [phone] PCP - General 11/24/22 documented as of this encounter
--- OUTSIDE RECORDS SUMMARY | 2024-10-16 22:30 | XMS_ITS | Encounter Summary ---
Author Organization [facility] Address [address] [place] [address] Care Team Providers Care Writer Producer Name Role Phone Sultana Sullivan MD Primary Care Provider [phone] Encounter Details Date Type Department Care Team (Late st Contact Info) Description 03/30/2024 2:00 PM CDT - 03/30/2024 11:59 PM CDT Hospital Encounter [facility] [address] [place] [phone] Pepe Witt MD [address] [facility] [place] [address] Ervin Rodriguez OT Hand/Upper Extremity Surgery Discharge [...] Progress Notes * Ervin Rodriguez, OT - 03/30/2024 2:28 PM CDT [facility] Physical Medicine and Rehabilitation Outpatient Progress Note PATIENT NAME:Sultana Vincent DATE:03/30/2024 PROVIDER: Dr Witt Medical Diagnosis: RA Clinical Diagnosis: Decreased range of motion and Decreased strength Date of injury: NA Date of surgery: NA VISIT # 2 (exp on 04/27/24) SUBJECTIVE: Pt reports her fingers are no longer stuck against her palm, states her is the person that usually dons her splint for her. Patient voices pain level of 0/10 at rest, reports she has pain in digits for a short time when sheremoves the splint. In response to pain, therapy: NA OBJECTIVE: Pt arrives with L UE ext splint partially on. Skin observed to be intact. Instructed pt in don splint with cues and assist, PROM to RF-SF MP extension during paraffin 2 long sets to tolerance, splint re-applied Patient/Family Education Given: OT POC, splinting for digital ext Need To Reassess: L RF SF MP passive ext -84 -75 ASSESSMENT/PROGRESS TOWARDS GOALS: Pt continues to benefit from skilled OT to increase digital extension. Response to treatment: fair Plan: continue per plan Goals: Continue Ex x 1 [phone] documented in this encounter Plan of Treatment Upcoming Encounters Date Type Department Care Team (Late st Contact Info) Description 10/31/2024 10:00 AM INSTRUCTIONAL TECHNOLOGY COORDINATOR Office Visit [facility] - Rheumatology [address] [place] [address], [place] [phone] Antonio Bowles MD [address] [place] [address] [place] [phone] 02/01/2025 9:00 AM CDT Appointment [facility] [address] [place] [address] Sultana Sullivan MD [address] [place] [phone] documented as of this encounter Visit Diagnoses Not on filedocumented in this encounter Care Teams Writer Producer Relationship Specialty [place] [address] [place] [phone] PCP - General 11/24/22 documented as of this encounter
--- OUTSIDE RECORDS SUMMARY | 2024-10-16 22:30 | XMS_ITS | Encounter Summary ---
Author Organization [facility] Address [address] [facility] [place] [address] Care Team Providers Care Retail Customer Service Representative Name Role Phone Sultana Sullivan MD Primary Care Provider [phone] Reason for Visit * Reason Onset Date Comments MEDICATION REFILL 01/11/2023 Naproxen Encounter Details Date Type Department Care Team (Late st Contact Info) Description 01/11/2023 Refill [facility] [facility] [place] [phone] Saleem Weber MD [facility] [place] [place] [address] MEDICATION REFILL (Naproxen) Social History Tobacco Use Types Packs/Day Years [...] encounter Miscellaneous Notes * Telephone Encounter - Leticia Juan RN - 01/11/2023 3:40 PM CDT Refill Request Sultana Vincent RAFITA: 11/10/22 NOV due: NOV scheduled: 02/09/2023 LRF: 07/22/21 Qty Disp: 180 # of refills: 3 Labs: 2/13/23 Allergies: No Known Allergies Pended Medication Order: Requested Prescriptions Pending Prescriptions Disp Refills ??? naproxen (Naprosyn) 500 MG tablet 180 tablet 3 Sig: Take 1 (one) tablet by mouth 2 times daily documented in this encounter Plan of Treatment Upcoming Encounters Date Type Department Care Team (Late st Contact Info) Description 10/31/2024 10:00 AM ACADEMIC AFFAIRS SPECIALIST Office Visit [facility] - Rheumatology [address] [place] [address], [facility] [place] [address] Antonio Bowles MD [address] [place] [address] [place] [phone] 02/01/2025 9:00 AM CDT Appointment [facility] [address] [place] [address] Sultana Sullivan MD [address] [place] [phone] documented as of this encounter Visit Diagnoses Diagnosis Rheumatoid arthritis, involving unspecified site, unspecified whether rheumatoid factor present (HCC) documented in this encounter Care Teams Retail Customer Service Representative Relationship Specialty Start Date End Date Sultana Sullivan MD [address] [place] [phone] PCP - General 11/24/22 documented as of this encounter
--- OUTSIDE RECORDS SUMMARY | 2024-10-16 22:30 | XMS_ITS | Encounter Summary ---
Author Organization [facility] Address [address] [facility] [place] [address] Care Team Providers Care Financial Secretary Name Role Phone Sultana Sullivan MD Primary Care Provider [phone] Reason for Visit * Oncology Prior Authorization (Routine) - Closed Specialty Diagnoses / Procedures Referred By Contac t Referred To Contact Diagnoses Rheumatoid arthritis involving multiple sites with positive rheumatoid factor (HCC) Procedures MA INJ RITUXIMAB 10 MG Catherine Hoffman MD [address] [place] [address] [facility] [address] [place] [address] Referral ID Status Reason Start Date Expiration Date Visits Re quested Visits Authorized [id number] Closed 03/24/2023 10/09/2024 4 8 Encounter Details Date Type Department Care Team (Latest Contact Info) Description 02/03/2024 8:16 AM CDT - 02/03/2024 11:59 PM CDT Hospital Encounter [facility] [address] [place] [address] Unknown, Provider Discharge Disposition: Home or Self Care Social [...] Sign Reading Time Taken Comments Blood Pressure 126/79 02/03/2024 9:09 AM CDT Pulse 67 02/03/2024 9:09 AM CDT Temperature 36.1 ??C (96.9 ??F) 02/03/2024 9:09 AM CD T Respiratory Rate 20 02/03/2024 9:09 AM CDT Oxygen Saturation 100% 02/03/2024 9:09 AM CDT Inhaled Oxygen Concentration - - Weight 53 kg (116 lb 12.8 oz) 02/03/2024 9:09 AM CDT Height - - Body Mass Index 22.81 01/18/2024 10:55 AM CDT documented in this encounter Medications [...] st Contact Info) Description 10/31/2024 10:00 AM DIRECTOR OF VITAL STATISTICS Office Visit [facility] - Rheumatology [address] [place] [address], [facility] [place] [address] Antonio Bowles MD [address] [place] [address] [place] [phone] 02/01/2025 9:00 AM CDT Appointment [facility] [address] [place] [address] Sultana Sullivan MD [address] [place] [phone] documented as of this encounter Visit Diagnoses Diagnosis Rheumatoid arthritis involving multiple sites with positive rheumatoid factor (HCC)- Primary documented in this encounter Administered Medications Inactive Administered Medications - up to 3 most recent administrations Medication Order MAR Action Action Date Dose Rate Site acetaminophen (Tylenol) tablet 650 mg 650 mg, Oral, ONCE, 1 dose, On Tue02/03/24 at 0915, Maximum allowable Acetaminophen amount = [...] patient cannot tolerate oral intake $ Given 02/03/2024 9:25 AM CDT 650 mg methylPREDNISolone sod succ (SOLU-Medrol) injection 125 mg 125 mg, Intravenous, ONCE, 1 dose, On Tue02/03/24 at 0915 $ Given 02/03/2024 9:25 AM CDT 125 mg riTUXimab (Rituxan) 1,000 mg in 0.9% NaCl IV 500 mL infusion 1,000 mg, Intravenous, CONTINUOUS, Starting on Tue02/03/24 at 0945, Until Tue02/03/24 at 1544, Premedications should be administered at least 30 minutes prior to infusion. Titration Instructions for patients with problems tolerating previous infusion Initiate at 50 [...] 50% reduction in rate. $ New Bag/Syringe 02/03/2024 9:56 AM CDT 1,000 mg 50 mL/hr documented in this encounter Care Teams Financial Secretary Relationship Specialty Start Date End Date Sultana Sullivan MD [address] [place] [phone] PCP - General 11/24/22 documented as of this encounter
--- OUTSIDE RECORDS SUMMARY | 2024-10-16 22:30 | XMS_ITS | Encounter Summary ---
Author Organization [facility] Address [address] [place] [address] Care Team Providers Care Director Web Name Role Phone Sultana Sullivan MD Primary Care Provider [phone] Encounter Details Date Type Department Care Team (Latest Contact Info) Description 03/22/2024 Travel Social History Tobacco Use Types Packs/Day [...] st Contact Info) Description 10/31/2024 10:00 AM PHONOGRAPH MECHANIC Office Visit [facility] - Rhe[facility]ology [address] [place] [address], [place] [phone] Antonio Bowles MD [address] [place] [address] [place] [phone] 02/01/2025 9:00 AM CDT Appointment [facility] [address] [place] [address] Sultana Sullivan MD [address] [place] [phone] documented as of this encounter Visit Diagnoses Not on filedocumented in this encounter Care Teams Director Web Relationship Specialty Start Date End Date Sultana Sullivan MD [address] [place] [phone] PCP - General 11/24/22 documented as of this encounter
--- OUTSIDE RECORDS SUMMARY | 2024-10-16 22:30 | XMS_ITS | Encounter Summary ---
Author Organization [facility] Address [address] [place] [address] Care Team Providers Care Zyglo Technician Name Role Phone Sultana Sullivan MD Primary Care Provider [phone] Encounter Details Date Type Department Care Team (Latest Contact Info) Description 03/01/2023 Travel Social History Tobacco Use Types Packs/Day [...] PM CDT documented as of this encounter Plan of Treatment Upcoming Encounters Date Type Department Care Team (Late st Contact Info) Description 10/31/2024 10:00 AM HIDE BUFFER Office Visit [facility] - Rheumatology [address] [place] [address], [place] [phone] Antonio Bowles MD [address] [place] [address] [place] [phone] 02/01/2025 9:00 AM CDT Appointment [facility] [address] [place] [address] Sultana Sullivan MD [address] [place] [phone] documented as of this encounter Visit Diagnoses Not on filedocumented in this encounter Care Teams Zyglo Technician Relationship Specialty Start Date End Date Sultana Sullivan MD [facility] [place] [phone] PCP - General 11/24/22 documented as of this encounter
--- OUTSIDE RECORDS SUMMARY | 2024-10-16 22:30 | XMS_ITS | Encounter Summary ---
Author Organization [facility] Address [address] [facility] [place] [address] Care Team Providers Care Vocal Music Teacher Name Role Phone Sultana Sullivan MD Primary Care Provider [phone] Reason for Referral * Consultation (Routine) - Closed Specialty Diagnoses / Procedures Referred By Contac t Referred To Contact Occupational Therapy Diagnoses Rheumatoid arthritis involving multiple sites with positive rheumatoid factor (HCC) Pepe Witt MD [address] [place] [address] [place] [address] [facility] [address] [place] [address] Referral ID Status Reason Start Date Expiration Date V isits Requested Visits Authorized [id number] Closed Specialty Services Required 03/22/2024 03/22/2025 1 1 Reason for Visit * Reason Comments Pain Hand left Encounter Details Date Type Department Care Team (Late st Contact Info) Description 03/22/2024 1:45 PM CDT Office Visit [facility] - Orthopedics [address] [place] [address], [place] [address] Pepe Witt MD [address] [place] [address] [place] [address] Rheumatoid arthritis involving multiple sites [...] as of this encounter Progress Notes * Pepe Witt MD - 04/03/2024 2:17 AM CDT ORTHOPEDIC SURGERY / HAND SURGERY / MICROSURGERY OUTPATIENT NEW PATIENT Sultana Vincent 64 year old female CSN: [id number] Date of service: 03/22/2024 [facility] Ms. 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 She says that she would like to avoid extensive procedures if possible. She denies any numbness or tingling and has no other complaints at this time. The patient had a steroid injection to the left ring finger flexor sheath during the last visit from which she benefited. She does not complain of any pain in the left ring finger anymore. PMHx Past Medical History: Diagnosis Date Former smoker quit 03/2021 Thrombocytosis saw heme onc 2019, no etiology found PSHx Past Surgical History: Procedure Laterality Date Bilateral Tubal Ligation (BTL) Social Hx Social History Tobacco Use Smoking status: Former Packs/day: 0.50 Years: 20.00 Additional pack years: 0.00 Total pack years: 10.00 Types: Cigarettes Quit date: 03/10/2021 Years since quittin.0 Smokeless tobacco: Never Substance Use Topics Alcohol use: Never Family Hx family history is not on file. Allergies No Known Allergies Medications Current Outpatient Medications Medication naproxen (Naprosyn) 500 MG tablet No current [...] stuck in a flexed position Additional findings: No tenderness over the A1 loco of the left ring finger Assessment and Plan 64 year old female bilateral diffuse rheumatoid arthritis . Ms. Vincent was counseled as to her diagnosis and demonstrated understanding Recommendations: Due to patient wishes, we will continue with conservative management. Patient willbe referred to occupational hand therapy and serial splinting will be tried to address the flexion contractures of the left ring and small fingers. Patient is amenable to the plan. Steroid injection of the left ring finger given today Restrictions: none Follow up with Dr. Witt: 6-8 weeks She will call in the interim with any questions or concerns. XR needed at follow up: NO Pepe Witt MD documented in this encounter Plan of Treatment Upcoming Encounters Date Type Department Care Team (Late st Contact Info) Description 10/31/2024 10:00 AM CORPORATE TRAVEL MANAGER Office Visit [facility] - Rheumatology [address] [place] [address], [place] [phone] Antonio Bowles MD [address] [place] [address] [place] [phone] 02/01/2025 9:00 AM CDT Appointment [facility] [address] [place] [phone] Sultana Sullivan MD [address] [place] [phone] Scheduled Referrals Name Type Priority Associated Diagnoses Order Schedule AMB REFERRAL TO HAND THERAPY OT OR PT Outpatient Referral Routine Rheumatoid arthritis involving multiple sites with positive rheumatoid factor (HCC) 1 Occurrences starting 03/22/2024 until 03/22/2025 documented as of this encounter Visit Diagnoses Diagnosis Rheumatoid arthritis involving multiple sites with positive rheumatoid factor (HCC)- Primary documented in this encounter Care Teams Vocal Music Teacher Relationship Specialty Start Date End Date Sultana Sullivan MD [address] [place] [phone] PCP - General 11/24/22 documented as of this encounter
--- OUTSIDE RECORDS SUMMARY | 2024-10-16 22:30 | XMS_ITS | Encounter Summary ---
Author Organization [facility] Address [address] [place] [address] Care Team Providers Care Underwriting Technician Name Role Phone Sultana Sullivan MD Primary Care Provider [phone] Encounter Details Date Type Department Care Team (Late Contact Info) Description 02/01/2024 Orders Only [facility] - Orthopedic Surgery [address] [place] [address] Afshan Siddiqui RN Rheumatoid arthritis involving multiple sites with positive rheumatoid factor (HCC) Social History Tobacco Use Types Packs/Day Years [...] (Late Contact Info) Description 10/31/2024 10:00 AM PIPE FITTER MAINTENANCE Office Visit [facility] - Rheumatology [address] [place] [address] [place] [phone] Antonio Bowles MD [address] [place] [address] [place] [phone] 02/01/2025 9:00 AM CDT Appointment [facility] [address] [place] [phone] Sultana Sullivan MD [address] [place] [address] documented as of this encounter Results * XR HAND LEFT 3VW OR MORE (02/07/2024 12:35 PM CDT) Anatomical Region Laterality Modality Wrist / Hand Radiographic Ivana ging 02/07/2024 1:25 PM CDT Impressions 02/07/2024 1:30 PM CDT IMPRESSION: Interval progression of erosive arthritis with deformity. > Interpreting Provider: Boogie Husain MD on 02/07/2024 1:30 PM Narrative 02/07/2024 [...] tissue swelling are noted. Procedure Note Boogie Husain MD - 02/07/2024 PROCEDURE: XR HAND RIGHT [...] arthritis with deformity. > Interpreting Provider: Boogie Husain MD on 02/07/2024 1:30 PM Pepe Witt MD DIAGNOSTIC IMAGING O RDERABLES * XR HAND RIGHT 3VW OR MORE (02/07/2024 12:35 PM CDT) Anatomical Region Laterality Modality Wrist / Hand Radiographic Ivana ging 02/07/2024 1:25 PM CDT Impressions 02/07/2024 1:30 PM CDT IMPRESSION: Interval progression of erosive arthritis with deformity. > Interpreting Provider: Boogie Husain MD on 02/07/2024 1:30 PM Narrative 02/07/2024 [...] tissue swelling are noted. Procedure Note Boogie Husain MD - 02/07/2024 PROCEDURE: XR HAND RIGHT [...] arthritis with deformity. > Interpreting Provider: Boogie Husain MD on 02/07/2024 1:30 PM Pepe Witt MD DIAGNOSTIC IMAGING O RDERABLES documented in this encounter Visit Diagnoses Diagnosis Rheumatoid arthritis involving multiple sites with positive rheumatoid factor (HCC)- Primary Rheumatoid arthritis involving multiple sites with positive rheumatoid factor (HCC) Rheumatoid arthritis involving multiple sites with positive rheumatoid factor (HCC) documented in this encounter Care Teams Underwriting Technician Relationship Specialty Start Date End Date Sultana Sullivan MD [address] [place] [phone] PCP - General 11/24/22 documented as of this encounter
--- OUTSIDE RECORDS SUMMARY | 2024-10-16 22:30 | XMS_ITS | Encounter Summary ---
Author Organization [facility] Address [address] [facility] [place] [address] Care Team Providers Care Tactical Intelligence Officer Name Role Phone Sultana Sullivan MD Primary Care Provider [phone] Reason for Visit * Reason Comments Refill Request Encounter Details Date Type Department Care Team (Late st Contact Info) Description 01/06/2024 Refill [facility] - Rheumatology [address] [place] [address] [place] [phone] Saleem Weber MD [facility] [place] [address] Refill Request Social History Tobacco Use Types Packs/Day Years [...] encounter Miscellaneous Notes * Telephone Encounter - SanjeevLindadolly - 01/06/2024 11:31 AM CDT Refill Request Sultana Vincent RAFITA:07/13/2023 NOV scheduled: 01/18/2024 LRF: 01/11/2023 Qty Disp: 180 # of refills: 3 Allergies: No Known Allergies Pended Medication Order: Requested Prescriptions Pending Prescriptions Disp Refills ??? naproxen (Naprosyn) 500 MG tablet [Pharmacy Med Name: Naproxen 500 MG Oral Tablet] 180 tablet 0 Sig: Take 1 tablet by mouth twice daily documented in this encounter Plan of Treatment Upcoming Encounters Date Type Department Care Team (Late st Contact Info) Description 10/31/2024 10:00 AM DUMPSTER OPERATOR Office Visit [facility] - Rheumatology [address] [facility], [place] [phone] Antonio Bowles MD [address] [place] [address] [place] [phone] 02/01/2025 9:00 AM CDT Appointment [facility] [address] [place] [address] Sultana Sullivan MD [address] [place] [phone] documented as of this encounter Visit Diagnoses Diagnosis Rheumatoid arthritis, involving unspecified site, unspecified whether rheumatoid factor present (HCC) documented in this encounter Care Teams Tactical Intelligence Officer Relationship Specialty Start Date End Date Sultana Sullivan MD [address] [place] [phone] PCP - General 11/24/22 documented as of this encounter
--- OUTSIDE RECORDS SUMMARY | 2024-10-16 22:30 | XMS_ITS | Encounter Summary ---
Author Organization [facility] Address [address] [facility] [place] [address] Care Team Providers Care Bag Worker Name Role Phone Sultana Sullivan MD Primary Care Provider [phone] Encounter Details Date Type Department Care Team (Late Contact Info) Description 10/28/2023 Orders Only [facility] - Rheumatology [address] [place] [phone] Saleem Weber MD [address] [place] [address] [place] [phone] Rheumatoid arthritis, involving unspecified site, unspecified whether rheumatoid factor present (HCC); 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; Long-term use 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; 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; Arthralgia, unspecified [...] (Late Contact Info) Description 10/31/2024 10:00 AM SENIOR PROJECT LEADER/TEAM LEAD Office Visit [facility] - Rheumatology [address] [place] [phone] Antonio Bowles, MD [address] [facility] [place] [address] 02/01/2025 9:00 AM CDT Appointment [facility] [address] [place] [address] Sultana Sullivan MD [address] [place] [phone] documented as of this encounter Visit Diagnoses Diagnosis Rheumatoid arthritis, involving unspecified site, unspecified whether rheumatoid factor present ([facility]) 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 Encounter for therapeutic drug monitoring Long-term use 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
--- OUTSIDE RECORDS SUMMARY | 2024-10-16 22:30 | XMS_ITS | Encounter Summary ---
Author Organization [facility] Address [address] [facility] [place] [place] [address] Care Team Providers Care Adobe Cq Developer Name Role Phone Sultana Sullivan MD Primary Care Provider [phone] Reason for Visit * Oncology Prior Authorization (Routine) - Closed Specialty Diagnoses / Procedures Referred By Contac t Referred To Contact Diagnoses Rheumatoid arthritis involving multiple sites with positive rheumatoid factor (HCC) Procedures WI INJ RITUXIMAB 10 MG Catherine Hoffman MD [address] [place] [address] [facility] [address] [place] [id number] Referral ID Status Reason Start Date Expiration Date Visits Re quested Visits Authorized [id number] Closed 03/24/2023 10/09/2024 4 8 Encounter Details Date Type Department Care Team (Latest Contact Info) Description 01/20/2024 7:57 AM CDT - 01/20/2024 11:59 PM CDT Hospital Encounter [facility] [address] [place] [phone] Unknown, Provider Discharge Disposition: Home or [...] Sign Reading Time Taken Comments Blood Pressure 132/77 01/20/2024 8:04 AM CDT Pulse 75 01/20/2024 8:04 AM CDT Temperature 36.7 ??C (98 ??F) 01/20/2024 8:04 AM CDT Respiratory Rate 20 01/20/2024 8:04 AM CDT Oxygen Saturation 98% 01/20/2024 8:04 AM CDT Inhaled Oxygen Concentration - - Weight 52.8 kg (116 lb 6.4 oz) 01/20/2024 8:04 A M CDT Height - - Body Mass Index 22.73 01/18/2024 10:55 AM CDT documented in this [...] st Contact Info) Description 10/31/2024 10:00 AM CLOTH BURLER Office Visit [facility] - Rheumatology [address] [place] [address], [facility] [place] [address] Antonio Bowles MD [address] [place] [address] [place] [phone] 02/01/2025 9:00 AM CDT Appointment [facility] [address] [place] [address] Sultana Sullivan MD [address] [place] [phone] documented as of this encounter Procedures Procedure Name Priority Date/Time Associated Diagnosis Comments C-REACTIVE PROTEIN Routine 01/20/2024 8: 29 AM CDT Rheumatoid arthritis, involving unspecified site, unspecified whether rheumatoid factor present (HCC) 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-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 Arthralgia, unspecified joint High risk medications (not anticoagulants) long-term use ERYTHROCYTE SEDIMENTATION RATE Routine 01/20/2024 8:29 AM CDT Rheumatoid arthritis, involving unspecified site, unspecified whether rheumatoid factor present (HCC) 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 Long-term use 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 alf 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 Arthralgia, unspecified joint High risk medications (not anticoagulants) long-term use CBC W AUTO DIFFERENTIAL Routine 01/20/2024 8:29 AM CDT Rheumatoid arthritis, involving unspecified site, unspecified whether rheumatoid factor present (HCC) 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-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 Arthralgia, unspecified joint High risk medications (not anticoagulants) long-term use COMPREHENSIVE METABOLIC PANEL Routine 01/20/2024 8:29 AM CDT Rheumatoid arthritis, involving unspecified site, unspecified whether rheumatoid factor present (HCC) 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 Long-term use 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 alf 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 Arthralgia, unspecified joint High risk medications (not anticoagulants) long-term use IGM BLOOD Routine 01/20/2024 8:29 AM CDT Rheumatoid arthritis, involving unspecified site, unspecified whether rheumatoid factor present (HCC) 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 Long-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 Arthralgia, unspecified joint High risk medications (not anticoagulants) long-term use IGG BLOOD Routine 01/20/2024 8:29 AM CDT Rheumatoid arthritis, involving unspecified site, unspecified whether rheumatoid factor present (HCC) 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 Long-term use 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 alf 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 Arthralgia, unspecified joint High risk medications (not anticoagulants) long-term use IGA BLOOD Routine 01/20/2024 8:29 AM CDT Rheumatoid arthritis, involving unspecified site, unspecified whether rheumatoid factor present (HCC) 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 Long-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 Arthralgia, unspecified joint High risk medications (not anticoagulants) long-term use documented in this encounter Results * IGA BLOOD (01/20/2024 8:29 AM CDT) IgA 258 61 - 356 mg/dL 01/20/2024 9:00 AM CDT [facility] Blood BLOOD SPECIMEN / Unknown Venipuncture / Unknown 01/20/2024 8:29 AM CDT 01/20/2024 8:39 AM CDT Catherine Hoffman MD LAB - CHEMISTR Y ORDERABLES [address] [address], [place] [phone] * IGM BLOOD (01/20/2024 8:29 AM CDT) IgM 38 37 - 286 mg/dL 01/20/2024 9:00 AM CDT [facility] Blood BLOOD SPECIMEN / Unknown Venipuncture / Unknown 01/20/2024 8:29 AM CDT 01/20/2024 8:39 AM CDT Catherine Hoffman MD LAB - CHEMISTR Y ORDERABLES [address] [address], [place] [phone] * IGG BLOOD (01/20/2024 8:29 AM CDT) IgG 1,379 767 - 1,590 mg/dL 01/20/2024 9:00 AM CDT [facility] Blood BLOOD SPECIMEN / Unknown Venipuncture / Unknown 01/20/2024 8:29 AM CDT 01/20/2024 8:39 AM CDT Catherine Hoffman MD LAB - CHEMISTR Y ORDERABLES [address] [address], [place] [phone] * (ABNORMAL) ERYTHROCYTE SEDIMENTATION RATE (01/20/2024 8:29 AM CDT) Pathologist [facility] Erythrocyte Sedimentation Rate Westergren 72(H) 0 - 30 MM/HR 01/20/2024 9:08 AM CDT [facility] Blood BLOOD SPECIMEN / Unknown Venipuncture / Unknown 01/20/2024 8:29 AM CDT 01/20/2024 8:42 AM CDT Catherine Hoffman MD LAB - HEMATOLO GY ORDERABLES [address] [address], [facility] [phone] * (ABNORMAL) C-REACTIVE PROTEIN (01/20/2024 8:29 AM CDT) [facility] C-Reactive Protein 2.0(H) <=0.5 mg/dL 01/20/2024 9:07 AM CDT [facility] Blood BLOOD SPECIMEN / Unknown Venipuncture / Unknown 01/20/2024 8:29 AM CDT 01/20/2024 8:42 AM CDT Catherine Hoffman MD LAB - CHEMISTR Y ORDERABLES [address] [address], [facility] [phone] * (ABNORMAL) COMPREHENSIVE METABOLIC PANEL (01/20/2024 8:29 AM CDT) Pathologist [facility] BUN 14 7 - 26 mg/dL 01/20/2024 9:07 AM CDT [facility] Creatinine 0.71 0.56 - 0.96 mg/dL 01/20/2024 9:07 AM CDT [facility] Sodium 138 136 - 145 mmol/L 01/20/2024 9:07 AM CDT [facility] Potassium 4.5 3.5 - 4.5 mmol/L 01/20/2024 9:07 AM T [facility] Chloride 106 98 - 107 mmol/L 01/20/2024 9:07 AM [facility] CO2 22 22 - 29 mmol/L 01/20/2024 9:07 AM [facility] Glucose 100 70 - 115 mg/dL 01/20/2024 9:07 AM [facility] Calcium 9.5 8.4 - 10.2 mg/dL 01/20/2024 9:07 AM [facility] Protein Total 7.5 6.0 - 8.3 g/dL 01/20/2024 9:07 AM [facility] Albumin 3.6 3.4 - 5.0 g/dL 01/20/2024 9:07 AM [facility] Bilirubin Total 0.3 0.2 - 1.2 mg/dL 01/20/2024 9:07 AM [facility] Alkaline Phosphatase 99 40 - 150 U/L 01/20/2024 9:07 AM [facility] ALT 11 5 - 55 U/L 01/20/2024 9:07 AM [facility] AST 17 5 - 34 U/L 01/20/2024 9:07 AM [facility] Anion Gap 10 6 - 16 01/20/2024 9:07 AM [facility] BUN/Creatinine Ratio 20 7 - 23 01/20/2024 9:07 AM [facility] Osmolality Calculated 287 275 - 295 mOsm/kg 01/20/2024 9:07 AM [facility] Albumin/Globulin Ratio 0.9(L) 1.1 - 2.3 01/20/2024 9:07 AM [facility] eGFR by CKD-EPI >90 >=90 mL/min/1.7 3 m2 01/20/2024 9:07 AM [facility] Blood BLOOD SPECIMEN / Unknown Venipuncture / Unknown 01/20/2024 8:29 AM [facility] 01/20/2024 8:42 AM [facility] Catherine Hoffman MD LAB - CHEMISTR Y ORDERABLES [facility] [address] [place] [address] [phone] * (ABNORMAL) CBC WITH DIFFERENTIAL (01/20/2024 8:29 AM [facility]) [facility] WBC 7.1 4.0 - 10.7 x10E9/L 01/20/2024 8:57 AM [facility] RBC Count 4.87 3.90 - 5.20 x10E12/L 01/20/2024 8:57 AM [facility] Hemoglobin 13.3 11.9 - 15.8 g/dL 01/20/2024 8:57 AM [facility] Hematocrit 41.5 34.8 - 46.1 % 01/20/2024 8:57 AM [facility] MCV 85.2 80.0 - 98.0 fL 01/20/2024 8:57 AM [facility] MCH 27.3 26.7 - 33.6 pg 01/20/2024 8:57 AM [facility] MCHC 32.0 31.7 - 36.3 g/dL 01/20/2024 8:57 AM [facility] RDW-CV 14.5 11.3 - 14.8 % 01/20/2024 8:57 AM [facility] Platelet Count 487(H) 150 - 420 x10E9/L 01/20/2024 8:57 AM [facility] MPV 9.9 7.8 - 11.4 fL 01/20/2024 8:57 AM [facility] Preliminary Absolute Neutrophil 5.10 1.60 - 7.50 x10E9/L 01/20/2024 8:57 AM [facility] Neutrophil % 71.9 41.0 - 74.0 % 01/20/2024 8:57 AM [facility] Lymphocyte % 12.7(L) 17.0 - 47.0 % 01/20/2024 8:57 AM [facility] Monocyte % 8.6 3.0 - 11.0 % 01/20/2024 8:57 AM [facility] Eosinophil % 5.8 0.0 - 7.0 % 01/20/2024 8:57 AM [facility] Basophil % 0.6 0.0 - 1.6 % 01/20/2024 8:57 AM [facility] Immature Granulocytes % 0.4 0.0 - 1.0 % 01/20/2024 8:57 AM [facility] Neutrophil Absolute 5.10 1.60 - 7.50 x10E9/L 01/20/2024 8:57 AM [facility] Lymphocyte Absolute 0.90(L) 1.00 - 4.40 x10E9/L 01/20/2024 8:57 AM [facility] Monocyte Absolute 0.61 0.15 - 1.00 x10E9/L 01/20/2024 8:57 AM [facility] Eosinophil Absolute 0.41 0.00 - 0.60 x10E9/L 01/20/2024 8:57 AM [facility] Basophil Absolute 0.04 0.00 - 0.13 x10E9/L 01/20/2024 8:57 AM [facility] Blood BLOOD SPECIMEN / Unknown Venipuncture / Unknown 01/20/2024 8:29 AM CDT 01/20/2024 8:42 AM CDT Catherine Hoffman MD LAB - HEMATOLO GY ORDERABLES Performing Organization Address [facility] Co de Phone Number [facility] [address] [place] [phone], [facility] [phone] documented in this encounter Visit Diagnoses Diagnosis Rheumatoid arthritis involving multiple sites with positive rheumatoid factor (HCC)- Primary Rheumatoid arthritis, involving unspecified site, unspecified whether rheumatoid factor present (HCC) 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 Encounter for therapeutic drug monitoring Long-term use 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 alf 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 Arthralgia, unspecified joint High risk medications (not anticoagulants) long-term use Encounter for long-term (current) use of other medications documented in this encounter Administered Medications Inactive Administered Medications - up to 3 most recent administrations Medication Order MAR Action Action Date Dose Rate Site acetaminophen (Tylenol) tablet 650 mg 650 mg, Oral, ONCE, 1 dose, On Tue01/20/24 at 0800, Maximum allowable Acetaminophen amount = 4 Grams [...] patient cannot tolerate oral intake $ Given 01/20/2024 8:26 AM CDT 650 mg methylPREDNISolone sod succ (SOLU-Medrol) injection 125 mg 125 mg, Intravenous, ONCE, 1 dose, On Tue01/20/24 at 0800 $ Given 01/20/2024 8:26 AM CDT 125 mg riTUXimab (Rituxan) 1,000 mg in 0.9% NaCl IV 500 mL infusion 1,000 mg, Intravenous, CONTINUOUS, Starting on Tue01/20/24 at 0830, Until Tue01/20/24 at 1429, Premedications should be administered at least 30 [...] 50% reduction in rate. $ New Bag/Syringe 01/20/2024 9:28 AM CDT 1,000 mg 50 mL/hr documented in this encounter Care Teams Adobe Cq Developer Relationship Specialty Start Date End Date Sultana Sullivan MD [address] [place] [phone] PCP - General 11/24/22 documented as of this encounter
--- OUTSIDE RECORDS SUMMARY | 2024-10-16 22:30 | XMS_ITS | Encounter Summary ---
Author Organization [facility] Address [address] [facility] [place] [address] Care Team Providers Care Vaccine Manager Name Role Phone Sultana Sullivan MD Primary Care Provider [phone] Encounter Details Date Type Department Care Team (Latest Contact Info) Description 04/08/2023 3:05 PM CDT Clinical Support [facility] - Ophthalmology [address] [place] [phone] Oleg Becker MD [address] [place] [address] [place] [address] Long-term use 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 (Primary Dx) Social [...] st Contact Info) Description 10/31/2024 10:00 AM 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 Visit [facility] - Rheumatology [address] [place] [phone] Antonio Bowles MD [address] [place] [address] [place] [address] 02/01/2025 9:00 AM CDT Appointment [facility] [address] [place] [address] Sultana Sullivan MD [facility] [place] [phone] documented as of this encounter Procedures Procedure Name Priority Date/Time Associated Diagnosis Comments RETINAL ANALYSIS OCT Routine 04/08/2023 3:00 PM CDT Long-term use 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 documented in this encounter Results * RETINAL ANALYSIS OCT (04/08/2023 3:00 PM CDT) Anatomical Region Laterality Modality Head External-Camera Photography Narrative 04/11/2023 8:16 AM CDT OCT of macula shows normal structure with no separation noted. Oleg Becker MD OPHTHALMOLOGY SCHED ORD W PACS documented in this encounter Visit Diagnoses Diagnosis Long-term use 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- Primary documented in this encounter Care Teams Vaccine Manager Relationship Specialty Start Date End Date Sultana Sullivan MD [address] [place] [phone] PCP - General 11/24/22 documented as of this encounter
--- OUTSIDE RECORDS SUMMARY | 2024-10-16 22:30 | XMS_ITS | Encounter Summary ---
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 Office Visit [facility] - Rheumatology [address] [place] [address], [place] [phone] Antonio Bowles MD [address] [place] [place] [address] [place] [phone] 02/01/2025 9:00 AM CDT Appointment [facility] [address] [place] [address] Sultana Sullivan MD [address] [place] [phone] documented as of this encounter Visit Diagnoses Not on filedocumented in this encounter Care Teams Office Technology Professor Relationship Specialty Start Date End Date Sultana Sullivan MD [address] [place] [phone] PCP - General 11/24/22 documented as of this encounter
--- OUTSIDE RECORDS SUMMARY | 2024-10-16 22:30 | XMS_ITS | Encounter Summary ---
Author Organization [facility] Address [address] [facility] [place] [address] Care Team Providers Care Advertising Copy Writer Name Role Phone Sultana Sullivan MD Primary Care Provider [phone] Encounter Details Date Type Department Care Team (Latest Contact Info) Description 07/13/2023 Travel Social History Tobacco Use Types Packs/Day [...] st Contact Info) Description 10/31/2024 10:00 AM PRODUCE PRODUCTION TEAM MEMBER [facility] [address] [place] [address], [place] [phone] Antonio Bowles MD [address] [place] [address] [place] [phone] 02/01/2025 9:00 AM CDT Appointment [facility] [address] [place] [phone] Sultana Sullivan MD [address] [place] [phone] documented as of this encounter Visit Diagnoses Not on filedocumented in this encounter Care Teams Advertising Copy Writer Relationship Specialty Start Date End Date Sultana Sullivan MD [address] [place] [phone] PCP - General 11/24/22 documented as of this encounter
--- OUTSIDE RECORDS SUMMARY | 2024-10-16 22:30 | XMS_ITS | Encounter Summary ---
Author Organization [facility] Address [address] [facility] [place] [address] Care Team Providers Care Guillotine Trimmer Name Role Phone Sultana Sullivan MD Primary Care Provider [phone] Encounter Details Date Type Department Care Team (Late Contact Info) Description 12/02/2023 Orders Only [facility] [address] [place] [phone] Saleem Weber MD [address] [place] [address] MD [place] [phone] Rheumatoid arthritis, involving unspecified site, unspecified whether [...] (Late Contact Info) Description 10/31/2024 10:00 AM MEDIA PRODUCTION MANAGER Office Visit [facility] - Rheumatology [address] [place] [phone] Antonio Bowles MD [address] [place] [address] [place] [phone] 02/01/2025 9:00 AM CDT Appointment [facility] [address] [place] [address] Sultana Sullivan MD [facility] [place] [phone] documented as of this encounter Visit Diagnoses Diagnosis Rheumatoid arthritis, involving unspecified site, unspecified whether rheumatoid factor present ([facility]) 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 Encounter for therapeutic drug monitoring documented in this encounter Care Teams Guillotine Trimmer Relationship Specialty Start Date End Date Sultana Sullivan MD [address] [place] [phone] PCP - General 11/24/22 documented as of this encounter
--- OUTSIDE RECORDS SUMMARY | 2024-10-16 22:30 | XMS_ITS | Encounter Summary ---
Author Organization [facility] Address [address] [place] [address] Care Team Providers Care Sales Trainer Name Role Phone Sultana Sullivan MD Primary Care Provider [phone] Reason for Referral * Consultation (Routine) - Pending Review Specialty Diagnoses / Procedures Referred By Contac t Referred To Contact Diagnoses Rheumatoid arthritis, involving unspecified site, unspecified whether rheumatoid factor present (HCC) Catherine Hoffman MD [address] [place] [address] [place] [address] Referral ID Status Reason Start Date Expiration Date Visits Requested Visits Authorized [id number] Pending Review Specialty Services Required 01/18/2024 01/17/2025 1 1 Encounter Details Date Type Department Care Team (Late st Contact Info) Description 01/18/2024 11:00 AM CDT Office Visit [facility] - Rheumatology [address] [place] [address], [facility] [place] [address] Saleem Weber MD [address] [place] [address] MD [place] [id number] Rheumatoid arthritis, involving unspecified site, unspecified whether rheumatoid factor present (HCC) (Primary Dx); 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; Long-term use 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; senior living 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; Arthralgia, unspecified [...] Sign Reading Time Taken Comments Blood Pressure 115/78 01/18/2024 10:55 AM CDT Pulse 89 01/18/2024 10:55 AM CDT Temperature 36.1 ??C (96.9 ??F) 01/18/2024 10:55 AM C DT Respiratory Rate - - Oxygen Saturation 99% 01/18/2024 10:55 AM CDT Inhaled Oxygen Concentration - - Weight 52.2 kg (115 lb) 01/18/2024 10:55 AM CDT Height 152.4 cm (5') 01/18/2024 10:55 AM CDT Body Mass Index 22.46 01/18/2024 10:55 AM CDT documented in this encounter Patient Instructions * Patient Instructions* Saleem Weber MD - 01/18/2024 11:32 AM CDT - Continue Naproxen - Continue Rituximab infusions every 6 months as scheduled - Labs with infusion - Referral to hand surgeon given - Use squeeze ball for hand exercises - Follow up in [address] Hoffman and new fellow. If you need to schedule,change or cancel your Rheumatology appointment -at the [facility] ([facility]) at [address] [place] [address], call [phone] or [phone] (option 1) If you choose to get labs or imaging at an outside facility, it is your (as the patient) responsibility to have these results faxed to us at [phone] If you need a refill, please call your Pharmacy first and have them send us a refill request via Fax at [phone]. If you have been given a referral to a new specialist at [facility] and have not received a call to schedule within 1 week, please call [phone] to schedule your visit. If you have been referred to Physical Therapy, but do not receive a call from them to schedule an appointment within 1 week, please call [phone] to schedule your Physical Therapy appointment. You can also utilize the Physical Therapy website at [email or web address] ([email or web address]) to make an appointment. If you need to leave a message for Dr. Weber you can send her an electronic message via [employer].Her office FAX number is [phone]. If you have an emergency after hours, you can reach the fitness professional Fellow by calling the Information Security Engineer at [phone], but please seek appropriate care at Urgent Care or Emergency Room. documented in this encounter Progress Notes * Catherine Hoffman MD - 01/18/2024 11:25 AM CDT Patient seen and examined with fellow Dr. Weber. Please see note for further details. I confirm history, exam, assessment and plan. In addition I note: Interval history: patient is 63 year old female with Rheumatoid arthritis, reports feeling better with pain in her legs. She has pain and swelling in her hands. Exam: Vitals: 01/18/24 1055 BP: 115/78 Pulse: 89 Temp: 96.9 ??F (36.1 ??C) SpO2: 99% Weight: 52.2 kg (115 lb) Height: 1.524 m (5') right hand MCP's T1 S2, left hand MCP's T1 S0 Left 4th and 5th fingers, unable to raise, flexion contractures Wrists T1 bilaterally with decreased ROM Elbows T1 S1 with fixed flexion deformities Shoulders T1 bilaterally with decreased ROM Knees T1 bilaterally Heart: RRR Lungs: clear Last labs: 10/14/23, ESR 54 Assessment/Plan: Dr. Serna's patient Patient is 63 year old female with Seropositive Rheumatoid arthritis, who reports feeling somewhat better since she started Rituximab. She is able to walk better, she is c/o pain and swelling in her hands. 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 Finger contractures: she likes to see hand surgery Recommend squeeze ball for muscle strengthening F/u in 4 months 01/18/2024 11:25 AM See fellow's note for further details Catherine Hoffman MD * Saleem Weber MD - 01/18/2024 11:00 AM CDT Rheumatology Clinic Consultation Note Patient: Sultana Vincent ( , 1960, 63 year old female) Encounter Date: 01/18/2024 Chief Concern: seropositive RA (+RF, +CCP, no erosions??in 2020) LCV:??07/13/23 Subjective History of Present Illness: Sultana Vincent??is a 63??year old??female??presenting for follow up of seropositive RA (+RF, +CCP,no erosions??in 2020) Last clinic visit: 02/09/23 ?? Interval history: Today: States she feels better with Rituximab, able to walk up the stairs and walking. Today she feels herwhole body hurts. States she feels stiffness all over her body all the time. Notices swelling of hands on and off. Feels whole body is stiff all the time. She does have dry eyes. Denies rashes, vision issues, raynaud's, ulcers, sores. ?? On her past visits,?? various options were discussed??including??injectables/ infusions/ TNF agents like Enbrel, Humira, Cimzia, which she denied until she finally said yes to RTX in 02/2023. Explained that??Rinvoq also??belongs to same class of RAKEL inhibitors like Xeljanz??but continued todeny it.??denies to try steroids for flares.? Current meds naproxen??500 mg??bid?? RTX, 1st dose on 04/06/23 and missed the next one. Again restarted with D1 07/21/23 and D15 08/04/23. Next due on 01/19 and 02/03/24. ?? Previous history: Xeljanz 11 mg daily: dizziness, headache, nausea after two times and took two days to feel better. Patient stopped it. Hydroxychloroquine 200 mg naproxen 500 mg bid: no improvement in symptoms. Methotrexate 15 mg in 2020: with some benefit, but stopped due to persistent transaminitis.?? Samples of Rinvoq given on last visit, patient did not try yet.??Authorization for Rinvoq denied.??Scared to start Rinvoq as per the patient. Discontinued SSZ on her own (Were able to start SSZ but when increased to 1500 mg BD, had Nausea and stopped it on her own altogether). Did not try the HCQ stating she was scared and doesn't want to take many meds.? Family and social history: Was working in a [employer], [place] Has 3 sons, no miscarriages Doesn't know if there was any family history, lost parents early. Smoked 1 ppd for >30 years and quit last year 2020 after RA diagnosis ?? Review of Systems: Other systems reviewed and negative or noncontributory except as stated in the HPI. Home Medications: Current Outpatient Medications: ??? metroNIDAZOLE (Flagyl) 500 MG tablet, Take 1 (one) tablet by mouth, Disp: , Rfl: ??? naproxen (Naprosyn) 500 MG tablet, Take 1 tablet by mouth twice daily, Disp: 180 tablet, Rfl: 0 ??? nitrofurantoin monohyd macro crystals (Macrobid) 100 MG capsule, TAKE 1 CAPSULE BY MOUTH EVERY 12 HOURS FOR 7 DAYS, Disp: , Rfl: ??? vitamin D, ergocalciferol, (Drisdol) 1.25 MG (28257 UT) capsule, Take 1 (one) capsule by mouth every 7 days, Disp: , Rfl: Adverse Drug Reactions: No Known Allergies Past Medical History: Past Medical History: Diagnosis Date ??? Former smoker quit 03/2021 ??? Thrombocytosis saw heme onc 2018, no etiology found Past Surgical History: Past Surgical History: Procedure Laterality Date ??? Bilateral Tubal Ligation (BTL) Immunization History: There is no immunization history on file for this patient. Social History: Social History Socioeconomic History ??? Marital status: Tobacco Use ??? Smoking status: Former Packs/day: 0.50 Years: 20.00 Additional pack years: 0.00 Total pack years: 10.00 Types: Cigarettes Quit date: 03/10/2021 Years since quittin.8 ??? Smokeless tobacco: Never Vaping Use ??? Vaping Use: Never used Substance and Sexual Activity ??? Alcohol use: Never ??? Drug use: Never ??? Sexual activity: Not Currently Family History: No family history on file. Patient Care Team: Sultana Sullivan MD Patient Care Team: Sultana Sullivan MD as PCP - General Objective Physical Exam BP 115/78 Pulse 89 Temp 96.9 ??F (36.1 ??C) (Temporal) Ht 1.524 m (5') Wt 52.2 kg (115 lb) SpO2 99% BMI 22.46 kg/m?? GENERAL: NAD HEENT/NECK: White sclerae. Ext ears wnl. No oropharyngeal lesions. No palpable masses. CHEST/LUNGS: Normal work of breathing, CTAB. CARDIOVASCULAR: Regular rhythm, crisp S1/S2. No BRENDAN. ABDOMEN: S/ND/NT. SKIN/NAILS: No rashes on exposed skin. PSYCH: Alert, appropriately interactive. NEURO: Sensation intact to soft touch. Normal muscle bulk and strength in trunk and limbs. MSK:?? right hand MCP's T1 S2, left hand MCP's T1 S0 Left 4th and 5th fingers, unable to raise, flexion contractures Wrists T1 bilaterally with decreased ROM Elbows T1 S1 with fixed flexion deformities Shoulders T1 bilaterally with decreased ROM Knees T1 bilaterally Labs: Reviewed, including those as noted below Results for orders placed or performed in visit on 10/14/23 (from the past 2352 hour(s)) CBC WITH DIFFERENTIAL Result Value Ref Range WBC 7.0 3.4 - 10.8 x10E3/uL RBC 5.19 3.77 - 5.28 x10E6/uL Hemoglobin 13.2 11.1 - 15.9 g/dL Hematocrit 41.7 34.0 - 46.6 % MCV 80 79 - 97 fL MCH 25.4 (L) 26.6 - 33.0 pg MCHC 31.7 31.5 - 35.7 g/dL RDW 15.0 11.7 - 15.4 % Platelet Count 610 (H) 150 - 450 x10E3/uL Granulocytes % 66 Not Estab. % Lymphocytes % 16 Not Estab. % Monocytes % 8 Not Estab. % Eosinophils % 10 Not Estab. % Basophils % 0 Not Estab. % Immature Cells NOT AVAILABLE Granulocytes Absolute 4.6 1.4 - 7.0 x10E3/uL Lymphocytes Absolute 1.1 0.7 - 3.1 x10E3/uL Monocytes Absolute 0.6 0.1 - 0.9 x10E3/uL Eosinophils Absolute 0.7 (H) 0.0 - 0.4 x10E3/uL Basophils Absolute 0.0 0.0 - 0.2 x10E3/uL Immature Granulocytes 0 Not Estab. % Immature Granulocytes Absolute 0.0 0.0 - 0.1 x10E3/uL nRBC NOT AVAILABLE Comment Hematology NOT AVAILABLE COMPREHENSIVE METABOLIC PANEL Result Value Ref Range Glucose 91 70 - 99 mg/dL BUN 14 8 - 27 mg/dL Creatinine 0.69 0.57 - 1.00 mg/dL eGFR by CKD-EPI 97 >59 mL/min/1.73 BUN/Creatinine Ratio 20 12 - 28 Sodium 139 134 - 144 mmol/L Potassium 4.9 3.5 - 5.2 mmol/L Chloride 102 96 - 106 mmol/L CO2 23 20 - 29 mmol/L Calcium 9.3 8.7 - 10.3 mg/dL Protein Total 7.2 6.0 - 8.5 g/dL Albumin 4.1 3.9 - 4.9 g/dL Globulin Total 3.1 1.5 - 4.5 g/dL Albumin/Globulin Ratio 1.3 1.2 - 2.2 Bilirubin Total 0.2 0.0 - 1.2 mg/dL Alkaline Phosphatase 104 44 - 121 IU/L AST 18 0 - 40 IU/L ALT 8 0 - 32 IU/L C-REACTIVE PROTEIN Result Value Ref Range C-Reactive Protein 15 (H) 0 - 10 mg/L ERYTHROCYTE SEDIMENTATION RATE Result Value Ref Range Erythrocyte Sedimentation Rate Westergren 54 (H) 0 - 40 mm/hr QUANTIFERON TB-GOLD Result Value Ref Range QuantiFERON Incubation Incubation performed. QuantiFERON Criteria QuantiFERON TB1 Ag Value 0.00 IU/mL QuantiFERON TB2 Ag Value 0.00 IU/mL QuantiFERON Nil Value 0.00 IU/mL QuantiFERON Mitogen Value 0.90 IU/mL QuantiFERON-TB Gold Plus Negative Negative Other Studies: Labs 10/2023: CMP stable CRP 15 from 72 Platelets 610 ESR 54 from 105 06/2023: RANULFO panel neg Actin smooth muscle Ab 29 C3 and C4 norrmal. Assessment & Recommendations Sultana Vincent??is a 63??year old??female??with longstanding Seropositive RA (+CCP, +RF nonerosive)??for follow up ?? #.??Seropositive RA? Onset??:??07/2021. Diagnosis??supported by clinical and serological phenotype:CCP>250 in 03/2021. +CCP and +RF??59??07/2021, bilateral MCPs, PIPs and MTPs swelling with AM stiffness. Current meds naproxen??500 mg??bid?? RTX, 1st dose on 04/06/23 and missed the next one. Again restarted with D1 07/21/23 and D15 08/04/23. Next due on 01/19 and 02/03/24. Previous history: Xeljanz 11 mg daily: dizziness, headache, nausea after two times and took two days to feel better. Patient stopped it. Hydroxychloroquine 200 mg naproxen 500 mg bid: no improvement in symptoms. Methotrexate 15 mg in 2020: with some benefit, but stopped due to persistent transaminitis.?? Samples of Rinvoq given on many visits in the past, patient did not try yet.??Authorization for Rinvoq denied.??Scared to start Rinvoq as per the patient. Discontinued SSZ on her own (Were able to start SSZ but when increased to 1500 mg BD, had Nausea and stopped it on her own altogether). Did not try the HCQ stating she was scared and doesn't want to take many meds.?? Status:??Not active. ?? # Thrombocytosis: Chronic (baseline 600-700). Likely in the setting of inflammation. Will monitor. ?? #.??Osteopenia: Following and being managed by PCP. Was on high dose vitamin D weekly previously. ?? #. Drug Toxicity Monitoring -??Labs as below.?? -??Recommend to be up to date with??Cancer screenings??including??breast and colonl cancer screening, but needs lung cancer screening given history of tobacco abuse and was asked to follow up with her PCP.? #. Immunosuppression due to drug therapy - Latent infection screen:??Hep B and C screen neg 06/2023. TB 10/2023 neg. - Immunizations per PCP: for all patients on immunosuppressive therapy we recommend annual influenza vaccine, COVID19 vaccine, Prevnar, Pneumovax, Shingrix.??Patient denies COVID vaccine.?? - Patient advised to contact clinic in case of any infections or antibiotic use.? RECOMMENDATIONS: -??Continue Naproxen 500 mg BD - Continue Rituximab 1000 mg IV Q6 months, Day 1 and Day 15 with IV methylprednisolone 125 mg. ?? - Osteopenia management as advised??by PCP -??Labs??as below with infusion including Immunoglobulin levels.?? - Referral to hand surgeon given for finger contractures. - Use squeeze ball for hand exercises ?? #. Follow-up: In??5??months or sooner if needed. ?? This patient was seen and staffed with attending .??Yasmin.? Saleem Weber MD Rheumatology Fellow [facility] Encounter orders: Orders Placed This Encounter ??? CBC WITH DIFFERENTIAL Can do at infusion Standing Status: Future Standing Expiration Date: 01/16/2025 Order Specific Question: Release to patient Answer: Immediate ??? COMPREHENSIVE METABOLIC PANEL Can do at infusion Standing Status: Future Standing Expiration Date: 01/16/2025 Order Specific Question: Release to patient Answer: Immediate ??? C-REACTIVE PROTEIN Can do at infusion Standing Status: Future Standing Expiration Date: 01/16/2025 Order Specific Question: Release to patient Answer: Immediate ??? ERYTHROCYTE SEDIMENTATION RATE Can do at infusion Standing Status: Future Standing Expiration Date: 01/16/2025 Order Specific Question: Release to patient Answer: Immediate ??? IGG BLOOD Standing Status: Future Standing Expiration Date: 02/11/2025 Order Specific Question: Release to patient Answer: Immediate ??? IGM BLOOD Standing Status: Future Standing Expiration Date: 02/11/2025 Order Specific Question: Release to patient Answer: Immediate ??? IGA BLOOD Standing Status: Future Standing Expiration Date: 02/11/2025 Order Specific Question: Release to patient Answer: Immediate ??? 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 Office Visit [facility] - Rheumatology [address] [place] [address], [facility] [place] [id number] Antonio Bowles MD [address] [place] [address] [place] [address] 02/01/2025 9:00 AM CDT Appointment [facility] [address] [place] [phone] Sultana Sullivan MD [address] [place] [phone] Scheduled Referrals Name Type Priority Associated Diagnoses Orde r Schedule AMB REFERRAL TO HAND SURGEON Outpatient Referral Routine Rheumatoid arthritis, involving unspecified site, unspecified whether rheumatoid factor present (HCC) 1 Occurrences starting 01/18/2024 until 01/17/2025 documented as of this encounter Results * IGA BLOOD (01/20/2024 8:29 AM CDT) IgA 258 61 - 356 mg/dL 01/20/2024 9:00 AM CDT [facility] Blood BLOOD SPECIMEN / Unknown Venipuncture / Unknown 01/20/2024 8:29 AM CDT 01/20/2024 8:39 AM CDT Catherine Hoffman MD LAB - CHEMISTR Y ORDERABLES [address] [address], [place] [phone] * IGM BLOOD (01/20/2024 8:29 AM CDT) IgM 38 37 - 286 mg/dL 01/20/2024 9:00 AM CDT [facility] Blood BLOOD SPECIMEN / Unknown Venipuncture / Unknown 01/20/2024 8:29 AM CDT 01/20/2024 8:39 AM CDT Catherine Hoffman MD LAB - CHEMISTR Y ORDERABLES Performing Organization Address City/[facility]/ZIP Co de Phone Number [address] [address], [place] [phone] * IGG BLOOD (01/20/2024 8:29 AM CDT) IgG 1,379 767 - 1,590 mg/dL 01/20/2024 9:00 AM CDT [facility] Blood BLOOD SPECIMEN / Unknown Venipuncture / Unknown 01/20/2024 8:29 AM CDT 01/20/2024 8:39 AM CDT Catherine Hoffman MD LAB - CHEMISTR Y ORDERABLES Performing Organization Address City/[facility]/ZIP Co de Phone Number [address] [address], [place] [phone] * (ABNORMAL) ERYTHROCYTE SEDIMENTATION RATE (01/20/2024 8:29 AM CDT) Erythrocyte Sedimentation Rate Westergren 72(H) 0 - 30 MM/HR 01/20/2024 9:08 AM CDT [facility] Blood BLOOD SPECIMEN / Unknown Venipuncture / Unknown 01/20/2024 8:29 AM CDT 01/20/2024 8:42 AM CDT Catherine Hoffman MD LAB - HEMATOLO GY ORDERABLES Performing Organization Address City/[facility]/ZIP Co de Phone Number [address] [address], [facility] [phone] * (ABNORMAL) C-REACTIVE PROTEIN (01/20/2024 8:29 AM CDT) Pathologist [facility] C-Reactive Protein 2.0(H) <=0.5 mg/dL 01/20/2024 9:07 AM [facility] Blood BLOOD SPECIMEN / Unknown Venipuncture / Unknown 01/20/2024 8:29 AM CDT 01/20/2024 8:42 AM CDT Catherine Hoffman MD LAB - CHEMISTR Y ORDERABLES Performing Organization Address City/[facility]/ZIP Co de Phone Number [address] [address], [facility] [phone] * (ABNORMAL) COMPREHENSIVE METABOLIC PANEL (01/20/2024 8:29 AM CDT) [facility] BUN 14 7 - 26 mg/dL 01/20/2024 9:07 AM [facility] Creatinine 0.71 0.56 - 0.96 mg/dL 01/20/2024 9:07 AM [facility] Sodium 138 136 - 145 mmol/L 01/20/2024 9:07 AM [facility] Potassium 4.5 3.5 - 4.5 mmol/L 01/20/2024 9:07 AM [facility] Chloride 106 98 - 107 mmol/L 01/20/2024 9:07 AM [facility] CO2 22 22 - 29 mmol/L 01/20/2024 9:07 AM [facility] Glucose 100 70 - 115 mg/dL 01/20/2024 9:07 AM [facility] Calcium 9.5 8.4 - 10.2 mg/dL 01/20/2024 9:07 AM [facility] Protein Total 7.5 6.0 - 8.3 g/dL 01/20/2024 9:07 AM [facility] Albumin 3.6 3.4 - 5.0 g/dL 01/20/2024 9:07 AM [facility] Bilirubin Total 0.3 0.2 - 1.2 mg/dL 01/20/2024 9:07 AM [facility] Alkaline Phosphatase 99 40 - 150 U/L 01/20/2024 9:07 AM [facility] ALT 11 5 - 55 U/L 01/20/2024 9:07 AM [facility] AST 17 5 - 34 U/L 01/20/2024 9:07 AM [facility] Anion Gap 10 6 - 16 01/20/2024 9:07 AM [facility] BUN/Creatinine Ratio 20 7 - 23 01/20/2024 9:07 AM [facility] Osmolality Calculated 287 275 - 295 mOsm/kg 01/20/2024 9:07 AM [facility] Albumin/Globulin Ratio 0.9(L) 1.1 - 2.3 01/20/2024 9:07 AM [facility] eGFR by CKD-EPI >90 >=90 mL/min/1.7 3 m2 01/20/2024 9:07 AM [facility] Blood BLOOD SPECIMEN / Unknown Venipuncture / Unknown 01/20/2024 8:29 AM CDT 01/20/2024 8:42 AM T Catherine Hoffman MD LAB - CHEMISTR Y ORDERABLES Performing Organization Address City/State/[facility] Co de Phone Number [facility] [address] [place] [phone], [facility] [phone] * (ABNORMAL) CBC WITH DIFFERENTIAL (01/20/2024 8:29 AM CDT) WBC 7.1 4.0 - 10.7 x10E9/L 01/20/2024 8:57 AM [facility] RBC Count 4.87 3.90 - 5.20 x10E12/L 01/20/2024 8:57 AM [facility] Hemoglobin 13.3 11.9 - 15.8 g/dL 01/20/2024 8:57 AM [facility] Hematocrit 41.5 34.8 - 46.1 % 01/20/2024 8:57 AM [facility] MCV 85.2 80.0 - 98.0 fL 01/20/2024 8:57 AM [facility] MCH 27.3 26.7 - 33.6 pg 01/20/2024 8:57 AM [facility] MCHC 32.0 31.7 - 36.3 g/dL 01/20/2024 8:57 AM [facility] RDW-CV 14.5 11.3 - 14.8 % 01/20/2024 8:57 AM [facility] Platelet Count 487(H) 150 - 420 x10E9/L 01/20/2024 8:57 AM [facility] MPV 9.9 7.8 - 11.4 fL 01/20/2024 8:57 AM [facility] Preliminary Absolute Neutrophil 5.10 1.60 - 7.50 x10E9/L 01/20/2024 8:57 AM [facility] Neutrophil % 71.9 41.0 - 74.0 % 01/20/2024 8:57 AM [facility] Lymphocyte % 12.7(L) 17.0 - 47.0 % 01/20/2024 8:57 AM [facility] Monocyte % 8.6 3.0 - 11.0 % 01/20/2024 8:57 AM [facility] Eosinophil % 5.8 0.0 - 7.0 % 01/20/2024 8:57 AM [facility] Basophil % 0.6 0.0 - 1.6 % 01/20/2024 8:57 AM [facility] Immature Granulocytes % 0.4 0.0 - 1.0 % 01/20/2024 8:57 AM [facility] Neutrophil Absolute 5.10 1.60 - 7.50 x10E9/L 01/20/2024 8:57 AM [facility] Lymphocyte Absolute 0.90(L) 1.00 - 4.40 x10E9/L 01/20/2024 8:57 AM CDT [facility] Monocyte Absolute 0.61 0.15 - 1.00 x10E9/L 01/20/2024 8:57 AM CDT [facility] Eosinophil Absolute 0.41 0.00 - 0.60 x10E9/L 01/20/2024 8:57 AM CDT [facility] Basophil Absolute 0.04 0.00 - 0.13 x10E9/L 01/20/2024 8:57 AM CDT [facility] Blood BLOOD SPECIMEN / Unknown Venipuncture / Unknown 01/20/2024 8:29 AM CDT 01/20/2024 8:42 AM CDT Catherine Hoffman MD LAB - HEMATOLO GY ORDERABLES Performing Organization Address City/State/[facility] Co de Phone Number [facility] [address] [place] [address], [facility] [phone] documented in this encounter Visit Diagnoses Diagnosis Rheumatoid arthritis, involving unspecified site, unspecified whether rheumatoid factor present ([facility])- Primary 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 Encounter for therapeutic drug monitoring Long-term use 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 senior living 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 Arthralgia, unspecified joint High risk medications (not anticoagulants) long-term use Encounter for long-term (current) use of other medications documented in this encounter Care Teams Sales Trainer Relationship Specialty Start Date End Date Sultana Sullivan MD [address] [place] [phone] PCP - General 11/24/22 documented as of this encounter
--- OUTSIDE RECORDS SUMMARY | 2024-10-16 22:30 | XMS_ITS | Encounter Summary ---
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 [facility] - Rhe[facility]ology [address] [place] [phone] Antonio Bowles MD [address] [place] [address] [place] [phone] 02/01/2025 9:00 AM CDT Appointment [facility] [address] [place] [address] Sultana Sullivan MD [facility] [place] [phone] documented as of this encounter Visit Diagnoses Diagnosis Rheumatoid arthritis, involving unspecified site, unspecified whether rheumatoid factor present ([facility]) 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 Encounter for therapeutic drug monitoring documented in this encounter Care Teams Electrical Manufacturing Engineer Relationship Specialty Start Date End Date Sultana Sullivan MD [address] [place] [phone] PCP - General 11/24/22 documented as of this encounter
--- OUTSIDE RECORDS SUMMARY | 2024-10-16 22:30 | XMS_ITS | Encounter Summary ---
Author Organization [facility] Address [address] [facility] [place] [address] Care Team Providers Care Bag Worker Name Role Phone Sultana Sullivan MD Primary Care Provider [phone] Encounter Details Date Type Department Care Team (Latest Contact Info) Description 01/18/2024 Travel Social History Tobacco Use Types Packs/Day [...] st Contact Info) Description 10/31/2024 10:00 AM LICENSED STAFF MFT Office Visit [facility] - Rheumatology [address] [place] [address], [place] [phone] Antonio Bowles MD [address] [place] [address] [place] [phone] 02/01/2025 9:00 AM CDT Appointment [facility] [address] [place] [address] Sultana Sullivan MD [address] [place] [phone] documented as of this encounter Visit Diagnoses Not on filedocumented in this encounter Care Teams Bag Worker Relationship Specialty Start Date End Date Sultana Sullivan MD [address] [place] [phone] PCP - General 11/24/22 documented as of this encounter
--- OUTSIDE RECORDS SUMMARY | 2024-10-16 22:30 | XMS_ITS | Encounter Summary ---
Author Organization [facility] Address [address] [facility] [place] [address] Care Team Providers Care Lead Consultant Name Role Phone Unavailable Primary Care Provider Unavailabl e Encounter Details Date Type Department Care Team (Latest Contact Info) Description 11/10/2022 Travel Social History Tobacco Use Types Packs/Day [...] suspected to have Coronavirus/COVID-19? No / Unsure 11/10/2022 12:27 PM ENGINE DYNAMOMETER TESTER documented as of this encounter Plan of Treatment Upcoming Encounters Date Type Department Care Team (Late st Contact Info) Description 10/31/2024 10:00 AM ENGINE DYNAMOMETER TESTER Office Visit [facility] - Rheumatology [address] [place] [address], [place] [phone] Antonio Bowles MD [address] [place] [address] [place] [phone] 02/01/2025 9:00 AM CDT Appointment [facility] [address] [place] [address] Sultana Sullivan MD [address] [place] [address] [place] [phone] documented as of this encounter Visit Diagnoses Not on filedocumented in this encounter
--- OUTSIDE RECORDS SUMMARY | 2024-10-16 22:30 | XMS_ITS | Encounter Summary ---
Author Organization [facility] Address [address] [facility] [place] [address] Care Team Providers Care Coal Handler Name Role Phone Sultana Sullivan MD Primary Care Provider [phone] Encounter Details Date Type Department Care Team (Late Contact Info) Description 10/07/2023 Orders Only [facility] [address] [place] [phone] Saleem Weber MD [address] [place] [address] MD [place] [phone] Rheumatoid arthritis, involving unspecified site, unspecified whether [...] (Late Contact Info) Description 10/31/2024 10:00 AM INSTRUMENTATION AND CONTROLS DESIGNER Office Visit [facility] [address] [place] [phone] Antonio Bowles MD [address] [place] [address] [place] [phone] 02/01/2025 9:00 AM CDT Appointment [facility] [address] [place] [address] Sultana Sullivan MD [facility] [place] [phone] documented as of this encounter Visit Diagnoses Diagnosis Rheumatoid arthritis, involving unspecified site, unspecified whether rheumatoid factor present ([facility]) 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 Encounter for therapeutic drug monitoring documented in this encounter Care Teams Coal Handler Relationship Specialty Start Date End Date Sultana Sullivan MD [address] [place] [phone] PCP - General 11/24/22 documented as of this encounter
--- OUTSIDE RECORDS SUMMARY | 2024-10-16 22:30 | XMS_ITS | Encounter Summary ---
Author Organization [facility] Address [address] [facility] [place] [address] Care Team Providers Care Generator Switchboard Operator Name Role Phone Sultana Sullivan MD Primary Care Provider [phone] Encounter Details Date Type Department Care Team (Late Contact Info) Description 10/14/2023 Orders Only [facility] [address] [place] [phone] Saleem Weber MD [address] [place] [address] MD [place] [phone] Rheumatoid arthritis, involving unspecified site, unspecified whether rheumatoid factor present (HCC); 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; Long-term use 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; [facility] 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 Social History [...] (Late Contact Info) Description 10/31/2024 10:00 AM SHIPPING AND RECEIVING Office Visit [facility] [address] [place] [phone] Antonio Bowles MD [address] [place] [address] [place] [address] 02/01/2025 9:00 AM CDT Appointment [facility] [address] [place] [address] Sultana Sullivan MD [address] [place] [phone] documented as of this encounter Procedures Procedure Name Priority Date/Time Associated Diagnosis Comments C-REACTIVE PROTEIN Routine 10/14/2023 1: 13 PM SHIPPING AND RECEIVING Rheumatoid arthritis, involving unspecified site, unspecified whether rheumatoid factor present (HCC) 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 Long-term use 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 service 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 QUANTIFERON TB-GOLD 10/14/2023 1 :13 PM SHIPPING AND RECEIVING ERYTHROCYTE SEDIMENTATION RATE Routine 10/14/2023 1:13 PM SHIPPING AND RECEIVING Rheumatoid arthritis, involving unspecified site, unspecified whether rheumatoid factor present (HCC) 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 Long-term use 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 intermodal customer service 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 CBC W AUTO DIFFERENTIAL Routine 10/14/2023 1:13 PM SHIPPING AND RECEIVING Rheumatoid arthritis, involving unspecified site, unspecified whether rheumatoid factor present (HCC) 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 Long-term use 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 intermodal customer service 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 COMPREHENSIVE METABOLIC PANEL Routine 10/14/2023 1:13 PM SHIPPING AND RECEIVING Rheumatoid arthritis, involving unspecified site, unspecified whether rheumatoid factor present (HCC) 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 Long-term use 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 [facility] 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 documented in this encounter Results * QUANTIFERON TB-GOLD (10/14/2023 1:13 PM SHIPPING AND RECEIVING) QuantiFERON Incubation Incubation performed. [facility] INSURANCE BILL [...] IU/mL. Chemiluminescence immunoassay methodology 10/14/2023 1:13 PM SHIPPING AND RECEIVING 10/14/2023 Narrative [facility] INSURANCE BILL - 10/19/2023 7:10 AM SHIPPING AND RECEIVING A courtesy copy of this report has been sent to [phone] Resulting Agency Comment Lab Testing performed at: [facility] [place] [address] [place] [address] ??Formerly [facility] [phone] Catherine Hoffman MD LAB - CHEMISTR Y ORDERABLES Performing Organization Address City/[facility]/ZIP Co de Phone Number [facility] INSURANCE BILL [address] [place] [address] * (ABNORMAL) ERYTHROCYTE SEDIMENTATION RATE (10/14/2023 1:13 PM SHIPPING AND RECEIVING) Erythrocyte Sedimentation Rate Westergren 54(H) 0 - 40 mm/hr [facility] INSURANCE BILL Blood BLOOD SPECIMEN / Unknown 10/14/2023 1:13 PM SHIPPING AND RECEIVING 10/14/2023 Narrative Resulting Agency Comment Lab Testing performed at: [facility] [address] [place] [address] ??Formerly [facility] [phone] Catherine Hoffman MD LAB - HEMATOLO GY ORDERABLES Performing Organization Address City/[facility]/ZIP Co de Phone Number [facility] INSURANCE BILL [address] [place] [address] * (ABNORMAL) C-REACTIVE PROTEIN (10/14/2023 1:13 PM SHIPPING AND RECEIVING) C-Reactive Protein 15(H) 0 - 10 mg/L [facility] INSURANCE BILL Blood BLOOD SPECIMEN / Unknown 10/14/2023 1:13 PM SHIPPING AND RECEIVING 10/14/2023 Narrative Resulting Agency Comment Lab Testing performed at: [facility] ??Formerly [facility] [phone] Catherine Hoffman MD LAB - CHEMISTR Y ORDERABLES [facility] INSURANCE BILL [address] [place] [address] * COMPREHENSIVE METABOLIC PANEL (10/14/2023 1:13 PM SHIPPING AND RECEIVING) Glucose 91 70 - 99 mg/dL [facility] INSURANCE BILL BUN 14 8 - 27 mg/dL [facility] INSURANCE BILL Creatinine 0.69 0.57 - 1.00 mg/dL [facility] INSURANCE BILL eGFR by CKD-EPI 97 >59 mL/min/1.7 3 [facility] INSURANCE BILL BUN/Creatinine Ratio 20 12 - 28 [facility] INSURANCE BILL Sodium 139 134 - 144 mmol/L [facility] INSURANCE BILL Potassium 4.9 3.5 - 5.2 mmol/L [facility] INSURANCE BILL Chloride 102 96 - 106 mmol/L [facility] INSURANCE BILL CO2 23 20 - 29 mmol/L [facility] INSURANCE BILL Calcium 9.3 8.7 - 10.3 mg/dL [facility] INSURANCE BILL Protein Total 7.2 6.0 - 8.5 g/dL [facility] INSURANCE BILL Albumin 4.1 3.9 - 4.9 g/dL [facility] INSURANCE BILL Globulin Total 3.1 1.5 - 4.5 g/dL [facility] INSURANCE BILL Albumin/Globulin Ratio 1.3 1.2 - 2.2 [facility] INSURANCE BILL Bilirubin Total 0.2 0.0 - 1.2 mg/dL [facility] INSURANCE BILL Alkaline Phosphatase 104 44 - 121 IU/L [facility] INSURANCE BILL AST 18 0 - 40 IU/L [facility] INSURANCE BILL ALT 8 0 - 32 IU/L [facility] INSURANCE BILL Blood BLOOD SPECIMEN / Unknown 10/14/2023 1:13 PM SHIPPING AND RECEIVING 10/14/2023 Narrative Resulting Agency Comment Lab Testing performed at: [facility] [place] [address] [facility] ??Formerly [facility] [phone] Catherine Hoffman MD LAB - CHEMISTR Y ORDERABLES [facility] INSURANCE BILL [address] [place] [address] * (ABNORMAL) CBC WITH DIFFERENTIAL (10/14/2023 1:13 PM SHIPPING AND RECEIVING) WBC 7.0 3.4 - 10.8 x10E3/uL [facility] INSURANCE BILL RBC 5.19 3.77 - 5.28 x10E6/uL [facility] INSURANCE BILL Hemoglobin 13.2 11.1 - 15.9 g/dL [facility] INSURANCE BILL Hematocrit 41.7 34.0 - 46.6 % [facility] INSURANCE BILL MCV 80 79 - 97 fL [facility] INSURANCE BILL MCH 25.4(L) 26.6 - 33.0 pg [facility] INSURANCE BILL MCHC 31.7 31.5 - 35.7 g/dL [facility] INSURANCE BILL RDW 15.0 11.7 - 15.4 % [facility] INSURANCE BILL Platelet Count 610(H) 150 - 450 x10E3/uL [facility] INSURANCE BILL Granulocytes % 66 Not Estab. % [facility] INSURANCE BILL Lymphocytes % 16 Not Estab. % [facility] INSURANCE BILL Monocytes % 8 Not Estab. % [facility] INSURANCE BILL Eosinophils % 10 Not Estab. % [facility] INSURANCE BILL Basophils % 0 Not Estab. % [facility] INSURANCE BILL Immature Cells NOT AVAILABLE [facility] INSURANCE BILL Comment:Result cannot be obt ained for this observation. Granulocytes Absolute 4.6 1.4 - 7.0 x10E3/uL [facility] INSURANCE BILL Lymphocytes Absolute 1.1 0.7 - 3.1 x10E3/uL [facility] INSURANCE BILL Monocytes Absolute 0.6 0.1 - 0.9 x10E3/uL [facility] INSURANCE BILL Eosinophils Absolute 0.7(H) 0.0 - 0.4 x10E3/uL [facility] INSURANCE BILL Basophils Absolute 0.0 0.0 - 0.2 x10E3/uL [facility] INSURANCE BILL Immature Granulocytes 0 Not Estab. % [facility] INSURANCE BILL Immature Granulocytes Absolute 0.0 0.0 - 0.1 x10E3/uL [facility] INSURANCE BILL nRBC NOT AVAILABLE [facility] INSURANCE BILL Comment:Result cannot be obt ained for this observation. Comment Hematology NOT AVAILABLE [facility] INSURANCE BILL Comment:Result cannot be obt ained for this observation. Blood BLOOD SPECIMEN / Unknown 10/14/2023 1:13 PM SHIPPING AND RECEIVING 10/14/2023 Narrative Resulting Agency Comment Lab Testing performed at: [facility] [place] [id number] [facility] ??[facility]ly [facility] [phone] Catherine Hoffman MD LAB - HEMATOLO GY ORDERABLES [facility] INSURANCE BILL [address] [place] [address] documented in this encounter Visit Diagnoses Diagnosis Rheumatoid arthritis, involving unspecified site, unspecified whether rheumatoid factor present (HCC) 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 Encounter for therapeutic drug monitoring Long-term use 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 [facility] 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 documented in this encounter Care Teams Generator Switchboard Operator Relationship Specialty Start Date End Date Sultana Sullivan MD [address] [place] [phone] PCP - General 11/24/22 documented as of this encounter
--- OUTSIDE RECORDS SUMMARY | 2024-10-16 22:30 | XMS_ITS | Encounter Summary ---
Author Organization [facility] Address [address] [facility] [place] [address] Care Team Providers Care Marble Worker Name Role Phone Sultana Sullivan MD Primary Care Provider [phone] Encounter Details Date Type Department Care Team (Late st Contact Info) Description 02/07/2024 12:23 PM CDT - 02/07/2024 11:59 PM CDT Hospital Encounter [facility] [address] [facility] [place] [address] Pepe Witt MD [address] [facility] [place] [address] Discharge Disposition: Home or Self Care Social [...] st Contact Info) Description 10/31/2024 10:00 AM SPOOL SALVAGER Office Visit [facility] - Rheumatology [address] [facility], [place] [phone] Antonio Bowles MD [facility] [facility] [place] [phone] 02/01/2025 9:00 AM CDT Appointment [facility] [address] [place] [address] Sultana Sullivan MD [address] [place] [address] documented as of this encounter Procedures Procedure Name Priority Date/Time Associated Diagnosis Comments XR HAND LEFT 3VW OR MORE Routine 02/07/2024 12:35 PM CDT Rheumatoid arthritis involving multiple sites with positive rheumatoid factor (HCC) documented in this encounter Results * XR HAND LEFT [...] (HCC) documented in this encounter Care Teams Marble Worker Relationship Specialty Start Date End Date Sultana Sullivan MD [address] [place] [phone] PCP - General 11/24/22 documented as of this encounter
--- OUTSIDE RECORDS SUMMARY | 2024-10-16 22:30 | XMS_ITS | Encounter Summary ---
Author Organization [facility] Address [address] [facility] [address] [place] [address] Care Team Providers Care Cmm Technician Name Role Phone Sultana Sullivan MD Primary Care Provider [phone] Reason for Visit * Reason Comments Follow-up 3 month / Follow up ; [facility] Encounter Details Date Type Department Care Team (Late st Contact Info) Description 02/09/2023 11:00 AM CDT Office Visit [facility] [place] [id number] Saleem Weber MD [facility] [id number] Rheumatoid arthritis, involving unspecified site, unspecified whether rheumatoid factor present (HCC) (Primary Dx); 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; Long-term use 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; intermediate 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 Social History [...] suspected to have Coronavirus/COVID-19? No / Unsure 02/09/2023 12:01 PM CDT documented as of this encounter Last Filed Vital Signs Vital Sign Reading Time Taken Comments Blood Pressure 108/68 02/09/2023 11:22 AM CDT Pulse 95 02/09/2023 11:22 AM CDT Temperature 36.3 ??C (97.3 ??F) 02/09/2023 1 1:22 AM CDT Respiratory Rate - - Oxygen Saturation 99% 02/09/2023 11: 22 AM CDT Inhaled Oxygen Concentration - - Weight 48.9 kg (107 lb 12.8 oz) 023 11:22 AM CDT Height 152.4 cm (5') 02/09/2023 11:22 AM CDT Body Mass Index 21.05 02/09/2023 11:22 AM CDT documented in this encounter Patient Instructions * Patient Instructions* Saleem Weber MD - 02/09/2023 11:51 AM CDT - Continue naproxen 500 mg twice daily - Will start Rituximab Day1 and 15 every 6 months with 125 mg IV methylprednisolone. Infusion center will work on prior authorization with your insurance and let you know about appointment. - Labs every 8-12 weeks. If you need to schedule,change or cancel your Rheumatology appointment -at the [facility]) at [address] [place] [address], call [phone] or [phone] (option 1) If you choose to get labs or imaging at an outside facility, it is your (as the patient) responsibility to have these results faxed to us at [phone] If you need a refill, please call your Pharmacy first and have them send us a refill request via Fax at [phone]. If you have been given a referral to a new specialist at [facility] and have not received a call to schedule within 1 week, please call [phone] to schedule your visit. If you have been referred to Physical Therapy, but do not receive a call from them to schedule an appointment within 1 week, please call [phone] to schedule your Physical Therapy appointment. You can also utilize the Physical Therapy website at [email or web address] to make an appointment. If you need to leave a message for Dr. Weber you can send her an electronic message via [employer].Her office FAX number is [phone]. If you have an emergency after hours, you can reach the drafter construction Fellow by calling the Ditch Repairer at [phone], but please seek appropriate care at Urgent Care or Emergency Room. documented in this encounter Progress Notes * Catherine Hoffman MD - 02/09/2023 11:13 AM CDT Patient seen and examined with fellow Dr. Weber. Please see note for further details. I confirm history, exam, assessment and plan. In addition I note: Interval history: patient is 62 year old female with Rheumatoid arthritis, previously Dr. Serna's, To day she reports stopped taking Sulfasalazine due to nausea with higher dose. She never started HCQ. She never tried Rinvoq Exam: Vitals: 02/09/23 1122 BP: 108/68 Pulse: 95 Temp: 97.3 ??F (36.3 ??C) SpO2: 99% Weight: 48.9 kg (107 lb 12.8 oz) Height: 1.524 m (5') MCP's T1 S2 bilaterally with ulnar deviation PIP's T1 bilaterally Left 4th and 5th fingers, unable to raise, flexion contractures Wrists T1 bilaterally with decreased ROM Elbows T1 S1 with fixed flexion deformities Shoulders T1 bilaterally with decreased ROM Knees T1 bilaterally Mild neck tenderness Heart: RRR Lungs: clear Last labs: 11/22/22 Assessment/Plan: Dr. Serna's patient Patient is 62 year old female with Seropositive Rheumatoid arthritis, she tried different medicinesin the past. Had LFT elevation with Methotrexate Had head ache with Tofacitinib She is not interested in starting injections She never started Upadacitinib, she says tired of taking medicines, discussed various options, agreed to begin Rituximab She stopped SSZ due GI side effects with higher doses She is not interested begin Prednisone Continue Naproxen 500mg twice daily, if labs are ok Check labs to monitor potential toxicity of medicine and disease process F/u in 4 months 02/09/2023 11:43 AM See fellow's note for further details Catherine Hoffman MD * Saleem Weber MD - 02/09/2023 11:11 AM CDT Rheumatology Clinic Consultation Note Patient: Sultana Vincent ( , 1960, 62 year old female) Encounter Date: 02/09/2023 Chief Concern: seropositive RA (+RF, +CCP, no erosions??in 2020) LCV: 11/10/22 Subjective History of Present Illness: Sultana Vincent??is a 62??year old??female??presenting for follow up of seropositive RA (+Rf, +CCP,no erosions??in 2020) Last clinic visit: 02/03/2022. ?? Interval history: Today: Stated all her joints are getting worse, including hands, neck, shoulders, swelling, fingers, ankles and states and more noticeable in the hands bilaterally. Stiffness all the time, with on and off swelling of hands and ankles. On her last visit, various options were discussed??including??injectables/ infusions/ TNF agents like Enbrel, Humira, Cimzia, Rituximab??all of which were re-visited today, risks and benefits discussed with the patient. Explained that??Rinvoq also??belongs to same class of RAKEL inhibitors like Xeljanz but continued to deny it.??denies to try steroids for flares.?? Were able to start SSZ but when increased to 1500 mg BD, had Nausea and stopped it on her own altogether. She did not start the HCQ She does have dry eyes. Denies rashes, vision issues, raynaud's, ulcers, sores. ?? Current meds naproxen??500 mg??bid Vitamin D??50,000 IU??once a week Previous history: Xeljanz 11 mg daily: dizziness, headache, nausea after two times and took two days to feel better. Patient stopped it. Hydroxychloroquine 200 mg Methotrexate 15 mg in 2020: with some benefit, but stopped due to persistent transaminitis.?? Samples of Rinvoq given on last visit, patient did not try yet.??Authorization for Rinvoq denied. Scared to start Rinvoq as per the patient. Discontinued SSZ on her own (Were able to start SSZ but when increased to 1500 mg BD, had Nausea and stopped it on her own altogether). Did not try the HCQ stating she was scared and doesn't want to take many meds. ?? History:?? During last??few visits, there was an extensive conversation between Dr. Serna, Dr. Hurtado about medications. She was??deeply anxious and fearful of injections and infusions. She was adamant to??utilize pills only.??She understood??risks of RAKEL inhibitors but preferred??this over??any injectable or infusion TNF inhibitor.??They??discussed hcq which is helpful as adjunctive but not monotherapy.??She remained??steadfastly opposed to any needles of any kind. Discussed the increased risk of malignancy and clots with RAKEL inhibitors. She understood, and would rather accept these risks than utilizeneedles which give her extreme anxiety.? Prior medications:?? Xeljanz 11 mg daily: dizziness, headache, nausea after two times and took two days to feel better. Patient stopped it. Hydroxychloroquine 200 mg Methotrexate 15 mg in 2020:??with some benefit, but stopped due to persistent transaminitis. ?? Previous history Untreated joint pain for many years: shoulders knees, hands, ankles, neck. 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 Hands stiff all day, worst in the morning lasting 30 mins, and has trouble making a fist. Was given ??hydroxychloroquin 200 mg qd, naproxen 500 mg bid, tramadol, vit D 50,000 units by PCPs office but felt most were not helpful. Started MTX in 2020 with some benefit, but stopped due to persistent transaminitis.??Medication averse.? Family and social history: Was working in a [place], [place] Has 3 sons, no miscarriages Doesn't know if there was any family history, lost parents early. Smoked 1 ppd for >30 years and quit last year 2020 after RA diagnosis.? Review of Systems: Other systems reviewed and negative or noncontributory except as stated in the HPI. Home Medications: Current Outpatient Medications: ??? hydroxychloroquine (Plaquenil) 200 MG tablet, Take 1 (one) tablet by mouth once daily, Disp: 180 tablet, Rfl: 4 ??? naproxen (Naprosyn) 500 MG tablet, Take 1 (one) tablet by mouth 2 times daily, Disp: 180 tablet, Rfl: 3 ??? sulfaSALAzine (Azulfidine) 500 MG tablet, Please take 1 pill twice daily for ten days and repeat labs. If labs are okay, then increase to 3 tabs twice daily, Disp: 180 tablet, Rfl: 2 ??? upadacitinib ER (RINVOQ) 15 MG tablet, Take 1 (one) tablet by mouth once daily (Patient not taking: Reported on 11/10/2022), Disp: 15 tablet, Rfl: 0 ??? vitamin D, ergocalciferol, (Drisdol) 1.25 MG (41048 UT) capsule, Take 1 (one) capsule by mouth every 7 days, Disp: , Rfl: Adverse Drug Reactions: No Known Allergies Past Medical History: Past Medical History: Diagnosis Date ??? Former smoker quit 03/2021 ??? Thrombocytosis saw heme onc 2019, no etiology found Past Surgical History: Past Surgical History: Procedure Laterality Date ??? Bilateral Tubal Ligation (BTL) Immunization History: There is no immunization history on file for this patient. Social History: Social History Socioeconomic History ??? Marital status: Tobacco Use ??? Smoking status: Former Packs/day: 0.50 Years: 20.00 Pack years: 10.00 Types: Cigarettes Quit date: 03/10/2021 Years since quittin.9 ??? Smokeless tobacco: Never Vaping Use ??? Vaping status: Never Used Substance and Sexual Activity ??? Alcohol use: Never ??? Drug use: Never ??? Sexual activity: Not Currently Family History: No family history on file. Patient Care Team: Sultana Sullivan MD Patient Care Team: Sultana Sullivan MD as PCP - General Objective Physical Exam BP 108/68 (BP SITE: LEFT ARM, BP POSITION: SITTING, BP CUFF SIZE: 11) Pulse 95 Temp 97.3 ??F (36.3 ??C) (Temporal) Ht 1.524 m (5') Wt 48.9 kg (107 lb 12.8 oz) SpO2 99% BMI 21.05 kg/m?? GENERAL: NAD HEENT/NECK: White sclerae. Ext ears wnl. No oropharyngeal lesions. No palpable masses. CHEST/LUNGS: Normal work of breathing, CTAB. CARDIOVASCULAR: Regular rhythm, crisp S1/S2. No BRENDAN. ABDOMEN: S/ND/NT. SKIN/NAILS: No rashes on exposed skin. PSYCH: Alert, appropriately interactive. NEURO: Sensation intact to soft touch. Normal muscle bulk and strength in trunk and limbs. MSK: MCP's T1 S2 bilaterally with ulnar deviation PIP's T1 bilaterally Left 4th and 5th fingers, unable to raise, flexion contractures Wrists T1 bilaterally with decreased ROM Elbows T1 S1 with fixed flexion deformities Shoulders T1 bilaterally with decreased ROM Knees T1 bilaterally Mild neck tenderness Labs: Reviewed, including those as noted below Recent Results (from the past 2352 hour(s)) SS-A (SJOGREN'S) 52+60 ANTIBODIES Collection Time: 11/10/22 1:14 PM Result Value Ref Range SS-A 52 Antibody 8 0 - 40 AU/mL SS-A 60 Antibody 0 0 - 40 AU/mL CBC WITH DIFFERENTIAL Collection Time: 11/10/22 1:19 PM Result Value Ref Range WBC 7.4 3.5 - 10.5 10??3/uL RBC 4.59 3.80 - 5.20 10??6/uL Hemoglobin 11.8 (L) 12.0 - 15.6 g/dL Hematocrit 38.6 35.0 - 45.0 % MCV 84.1 80.7 - 98.3 fL MCH 25.7 (L) 26.7 - 34.0 pg MCHC 30.6 (L) 30.8 - 35.9 g/dL RDW-SD 44.5 36.0 - 50.0 fL RDW-CV 14.6 11.2 - 14.8 % Platelet Count 665 (H) 150 - 400 10??3/uL MPV 9.3 (L) 9.4 - 12.9 fL nRBC Absolute 0.00 0 10??3/uL nRBC Auto 0.0 0 /100 WBC Neutrophils % 69.9 35.0 - 70.0 % Lymphocytes % 19.7 (L) 20.0 - 43.0 % Monocytes % 7.3 5.0 - 13.0 % Eosinophils % 2.3 0.0 - 6.0 % Basophil % 0.4 0.0 - 2.0 % Neutrophils Absolute 5.19 1.60 - 7.00 10??3/uL Lymphocyte Absolute 1.46 1.10 - 3.90 10??3/uL Monocytes Absolute 0.54 0.26 - 1.07 10??3/uL Eosinophils Absolute 0.17 0.00 - 0.47 10??3/uL Basophils Absolute 0.03 0.00 - 0.08 10??3/uL Immature Granulocytes % 0.4 0.0 - 1.0 % Immature Granulocytes Absolute 0.03 COMPREHENSIVE METABOLIC PANEL Collection Time: 11/10/22 1:19 PM Result Value Ref Range BUN 15 7 - 26 mg/dL Creatinine 0.55 (L) 0.56 - 0.96 mg/dL Sodium 137 136 - 145 mmol/L Potassium 4.3 3.5 - 4.5 mmol/L Chloride 104 98 - 107 mmol/L CO2 21 (L) 22 - 29 mmol/L Glucose 97 70 - 115 mg/dL Calcium 9.7 8.4 - 10.2 mg/dL Protein Total 8.2 6.0 - 8.3 g/dL Albumin 2.9 (L) 3.4 - 5.0 g/dL Bilirubin Total 0.3 0.2 - 1.2 mg/dL Alkaline Phosphatase 61 40 - 150 U/L ALT <5 (L) 5 - 55 U/L AST 15 5 - 34 U/L Anion Gap 16 8 - 18 BUN/Creatinine Ratio 27 (H) 7 - 23 Osmolality Calculated 285 270 - 300 mOsm/kg Albumin/Globulin Ratio 0.5 (L) 1.1 - 2.3 eGFR by CKD-EPI >90 >=90 mL/min/1.73 m2 C-REACTIVE PROTEIN Collection Time: 11/10/22 1:19 PM Result Value Ref Range C-Reactive Protein 10.2 (H) <=0.5 mg/dL ERYTHROCYTE SEDIMENTATION RATE Collection Time: 11/10/22 1:19 PM Result Value Ref Range Erythrocyte Sedimentation Rate Westergren >130 (H) 0 - 30 MM/HR HEPATITIS B SURFACE ANTIGEN W RFLX CONFIRMATION Collection Time: 11/10/22 1:19 PM Result Value Ref Range Hepatitis B Virus Surface Antigen Non-reactive Non-reactive QUANTIFERON-TB GOLD PLUS 4-TUBE Collection Time: 11/10/22 1:19 PM Result Value Ref Range QuantiFERON NIL 0.02 IU/mL QuantiFERON TB Gold Plus Negative Negative QuantiFERON Plus TB1 Minus NIL 0.00 0.00 - 0.34 IU/mL QuantiFERON Plus TB2 Minus NIL 0.00 0.00 - 0.34 IU/mL QuantiFERON Mitogen Minus NIL 3.34 IU/mL HEPATITIS C ANTIBODY Collection Time: 11/10/22 1:19 PM Result Value Ref Range Hepatitis C Antibody Non-reactive Non-reactive RANULFO BLOOD SCREEN W/REFLEX TITER Collection Time: 11/10/22 1:19 PM Result Value Ref Range RANULFO IgG Detected (Abnormal) None Detected CHROMATIN ANTIBODY Collection Time: 11/10/22 1:19 PM Result Value Ref Range Chromatin Antibody 56 (H) 0 - 19 Units DNA ANTIBODY DOUBLE STRANDED Collection Time: 11/10/22 1:19 PM Result Value Ref Range dsDNA Antibody 22 0 - 24 IU SCOTT (SM) ANTIBODY ANIA Collection Time: 11/10/22 1:19 PM Result Value Ref Range Scott (ANIA) Antibody 0 0 - 40 AU/mL SCLERODERMA 70 (SCL) ANTIBODY Collection Time: 11/10/22 1:19 PM Result Value Ref Range SCL-70 Antibody 11 0 - 40 AU/mL SS-B (SJOGREN'S) ANTIBODY Collection Time: 11/10/22 1:19 PM Result Value Ref Range SS-B Antibody 0 0 - 40 AU/mL COMPLEMENT C3 Collection Time: 11/10/22 1:19 PM Result Value Ref Range Complement C3 147 82 - 193 mg/dL COMPLEMENT C4 Collection Time: 11/10/22 1:19 PM Result Value Ref Range Complement C4 24 15 - 57 mg/dL HISTONE ANTIBODY Collection Time: 11/10/22 1:19 PM Result Value Ref Range Histone Antibody IgG 1.6 (H) 0.0 - 0.9 Units DNA ANTIBODY DS CRITHIDIA TITER Collection Time: 11/10/22 1:19 PM Result Value Ref Range dsDNA Antibody IgG <1:10 <1:10 RANULFO HEP-2 IGG BY IFA Collection Time: 11/10/22 1:19 PM Result Value Ref Range RANULFO HEp-2 IgG Detected (H) <1:80 RANULFO Interpretive Comment See Note RANULFO BLOOD SINGLE PATTERN Collection Time: 02/01/23 1:19 PM Result Value Ref Range RANULFO Pattern Speckled (Abnormal) RANULFO Titer 1:320 (Abnormal) COMPLEMENT ACTIVITY TOTAL (CH50) Collection Time: 11/10/22 1:20 PM Result Value Ref Range Complement Activity Total CH50 63.1 38.7 - 89.9 U/mL SCOTT/CHILD CAREGIVER (ANIA) ANTIBODY IGG Collection Time: 11/10/22 1:20 PM Result Value Ref Range Scott/CHILD CAREGIVER (ANIA) Antibody IgG 4 0 - 19 Units CBC WITH DIFFERENTIAL Collection Time: 11/22/22 3:44 PM Result Value Ref Range WBC 7.5 3.4 - 10.8 x10E3/uL RBC 4.22 3.77 - 5.28 x10E6/uL Hemoglobin 11.2 11.1 - 15.9 g/dL Hematocrit 34.8 34.0 - 46.6 % MCV 83 79 - 97 fL MCH 26.5 (L) 26.6 - 33.0 pg MCHC 32.2 31.5 - 35.7 g/dL RDW 13.7 11.7 - 15.4 % Platelet Count 755 (H) 150 - 450 x10E3/uL Granulocytes % 62 Not Estab. % Lymphocytes % 26 Not Estab. % Monocytes % 9 Not Estab. % Eosinophils % 3 Not Estab. % Basophils % 0 Not Estab. % Immature Cells NOT AVAILABLE Granulocytes Absolute 4.6 1.4 - 7.0 x10E3/uL Lymphocytes Absolute 2.0 0.7 - 3.1 x10E3/uL Monocytes Absolute 0.7 0.1 - 0.9 x10E3/uL Eosinophils Absolute 0.2 0.0 - 0.4 x10E3/uL Basophils Absolute 0.0 0.0 - 0.2 x10E3/uL Immature Granulocytes 0 Not Estab. % Immature Granulocytes Absolute 0.0 0.0 - 0.1 x10E3/uL nRBC NOT AVAILABLE Comment Hematology NOT AVAILABLE COMPREHENSIVE METABOLIC PANEL Collection Time: 11/22/22 3:44 PM Result Value Ref Range Glucose 94 70 - 99 mg/dL BUN 9 8 - 27 mg/dL Creatinine 0.59 0.57 - 1.00 mg/dL eGFR by CKD-EPI 101 >59 mL/min/1.73 BUN/Creatinine Ratio 15 12 - 28 Sodium 141 134 - 144 mmol/L Potassium 4.7 3.5 - 5.2 mmol/L Chloride 104 96 - 106 mmol/L CO2 24 20 - 29 mmol/L Calcium 9.2 8.7 - 10.3 mg/dL Protein Total 7.1 6.0 - 8.5 g/dL Albumin 3.5 (L) 3.8 - 4.8 g/dL Globulin Total 3.6 1.5 - 4.5 g/dL Albumin/Globulin Ratio 1.0 (L) 1.2 - 2.2 Bilirubin Total <0.2 0.0 - 1.2 mg/dL Alkaline Phosphatase 71 44 - 121 IU/L AST 10 0 - 40 IU/L ALT 5 0 - 32 IU/L C-REACTIVE PROTEIN Collection Time: 11/22/22 3:44 PM Result Value Ref Range C-Reactive Protein 115 (H) 0 - 10 mg/L ERYTHROCYTE SEDIMENTATION RATE Collection Time: 11/22/22 3:44 PM Result Value Ref Range Erythrocyte Sedimentation Rate Westergren 110 (H) 0 - 40 mm/hr URINALYSIS REFLEX MICROSCOPIC REFLEX CULTURE Collection Time: 11/22/22 3:44 PM Specimen: Urine Clean Catch Result Value Ref Range Specific [place] UA 1.007 1.005 - 1.030 pH UA 6.5 5.0 - 7.5 Color UA Yellow Yellow Appearance Clear Clear Leukocyte UA Negative Negative Protein UA Negative Negative/Trace Glucose UA Negative Negative Ketone UA Negative Negative Occult Blood Urine Negative Negative Bilirubin UA Negative Negative Urobilinogen 0.2 0.2 - 1.0 mg/dL Nitrite UA Negative Negative Microscopic Examination Urine Microscopic Examination Urine See below: Urinalysis Reflex URINALYSIS MICROSCOPIC ONLY REFLEXED Collection Time: 11/22/22 3:44 PM Result Value Ref Range WBC UA None seen 0 - 5 /hpf RBC UA None seen 0 - 2 /hpf Epithelial Cells (non renal) 0-10 0 - 10 /hpf Epithelial Cells (renal) NOT AVAILABLE Casts ua None seen None seen /lpf Casts UA NOT AVAILABLE Crystals UA NOT AVAILABLE Crystals UA NOT AVAILABLE Mucus UA NOT AVAILABLE Bacteria UA None seen None seen/Few Yeast UA NOT AVAILABLE Trichomonas UA NOT AVAILABLE Comment Urine NOT AVAILABLE Other Studies: 11/22/22: CMP unremarkable. Platelets 755. CRP 115, ESR 110 Chromatin and histone +, RANULFO 1:320 Assessment & Recommendations Sultana Vincent??is a 62??year old??female??with longstanding Seropositive RA (+CCP, +RF nonerosive)??for follow up ?? #.??Seropositive RA? Onset??:??07/2021. Diagnosis??supported by clinical and serological phenotype:CCP>250 in 03/2021. +CCP and +RF??58??07/2021 Prior therapy:?? Xeljanz 11 mg daily: dizziness, headache, nausea after two times and took two days to feel better. Patient stopped it. Hydroxychloroquine 200 mg Methotrexate 15 mg in 2020: with some benefit, but stopped due to persistent transaminitis.?? Samples of Rinvoq given on last visit, patient did not try yet.??Authorization for Rinvoq denied. Current meds naproxen??500 mg??bid Vitamin D??50,000 IU??once a week Previous history: Xeljanz 11 mg daily: dizziness, headache, nausea after two times and took two days to feel better. Patient stopped it. Hydroxychloroquine 200 mg Methotrexate 15 mg in 2020: with some benefit, but stopped due to persistent transaminitis.?? Samples of Rinvoq given on last visit, patient did not try yet.??Authorization for Rinvoq denied. Scared to start Rinvoq as per the patient. Discontinued SSZ on her own (Were able to start SSZ but when increased to 1500 mg BD, had Nausea and stopped it on her own altogether). Did not try the HCQ stating she was scared and doesn't want to take many meds. Status: Active After a long discussion, was okay to be started on Rituximab, denied any new po/ subcu medications. Risks and benefits discussed. ?? #.??Osteopenia: Following with PCP ?? #. Drug Toxicity Monitoring - Labs as below. -??Recommend to be up to date with Cancer screenings??including breast and colonl cancer screening,but needs lung cancer screening given history of tobacco abuse and was asked to follow up with her PCP.? #. Immunosuppression due to drug therapy - Latent infection screen: Hep B and C scren, TB quant??negative in 11/2022 - Immunizations per PCP: for all patients on immunosuppressive therapy we recommend annual influenza vaccine, COVID19 vaccine, Prevnar, Pneumovax, Shingrix.??Patient denies COVID vaccine.?? - Patient advised to contact clinic in case of any infections or antibiotic use.? RECOMMENDATIONS: [] Continue Naproxen 500 mg BD [] We will plan for Rituximab 1000 mg IV D1 and D15 every 6 months with IV methylprednisolone 125 mg. Faxed infusion orders. [] Continue taking vitamin D as advised??by PCP []??Labs as below. ?? #. Follow-up: In??4??months or sooner if needed. ?? This patient was seen and staffed with attending .??Yasmin.? Saleem Weber MD Rheumatology Fellow [facility] Encounter orders: Orders Placed This Encounter ??? CBC WITH DIFFERENTIAL Standing Status: Standing Number of Occurrences: 6 Standing Expiration Date: 03/12/2024 Order Specific Question: Release to patient Answer: Immediate ??? COMPREHENSIVE METABOLIC PANEL Standing Status: Standing Number of Occurrences: 6 Standing Expiration Date: 03/12/2024 Order Specific Question: Release to patient Answer: Immediate ??? C-REACTIVE PROTEIN Standing Status: Standing Number of Occurrences: 6 Standing Expiration Date: 03/12/2024 Order Specific Question: Release to patient Answer: Immediate ??? ERYTHROCYTE SEDIMENTATION RATE Standing Status: Standing Number of Occurrences: 6 Standing Expiration Date: 03/12/2024 Order Specific Question: Release to patient Answer: Immediate documented in this encounter Plan of Treatment Upcoming Encounters Date Type Department Care Team (Late st Contact Info) Description 10/31/2024 10:00 AM EDGE BEADER Office Visit [facility] - Rheumatology [address] [place] [address] [place] [phone] Antonio Bowles MD [address] [place] [address] [place] [phone] 02/01/2025 9:00 AM CDT Appointment [facility] [address] [place] [id number] Sultana Sullivan MD [address] [place] [phone] documented as of this encounter Visit Diagnoses Diagnosis Rheumatoid arthritis, involving unspecified site, unspecified whether rheumatoid factor present (HCC)- Primary 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 Encounter for therapeutic drug monitoring Long-term use 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 intermediate 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 documented in this encounter Care Teams Cmm Technician Relationship Specialty Start Date End Date Sultana Sullivan MD [address] [place] [phone] PCP - General 11/24/22 documented as of this encounter
--- OUTSIDE RECORDS SUMMARY | 2024-10-16 22:30 | XMS_ITS | Encounter Summary ---
Author Organization [facility] Address [address] [facility] [place] [address] Care Team Providers Care Catering Staff Member Name Role Phone Sultana Sullivan MD Primary Care Provider [phone] Encounter Details Date Type Department Care Team (Latest Contact Info) Description 03/08/2024 Travel Social History Tobacco Use Types Packs/Day [...] st Contact Info) Description 10/31/2024 10:00 AM PRICE LISTER Office Visit [facility] - Rheumatology [address] [place] [address], [place] [phone] Antonio Bowles MD [address] [place] [address] [place] [phone] 02/01/2025 9:00 AM CDT Appointment [facility] [address] [place] [address] Sultana Sullivan MD [address] [place] [phone] documented as of this encounter Visit Diagnoses Not on filedocumented in this encounter Care Teams Catering Staff Member Relationship Specialty Start Date End Date Sultana Sullivan MD [address] [place] [phone] PCP - General 11/24/22 documented as of this encounter
--- OUTSIDE RECORDS SUMMARY | 2024-10-16 22:30 | XMS_ITS | Encounter Summary ---
Author Organization [facility] Address [address] [facility] [place] [address] Care Team Providers Care Keyseater Operator Name Role Phone Sultana Sullivan MD Primary Care Provider [phone] Encounter Details Date Type Department Care Team (Latest Contact Info) Description 04/08/2023 3:00 PM CDT Clinical Support [facility] - Ophthalmology [address] [place] [phone] Oleg Becker MD [address] [place] [address] [place] [address] Long-term use 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 (Primary [...] st Contact Info) Description 10/31/2024 10:00 AM 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 Office Visit [facility] - Rheumatology [address] [place] [phone] Antonio Bowles MD [address] [place] [address] [place] [address] 02/01/2025 9:00 AM CDT Appointment [facility] [address] [place] [address] Sultana Sullivan MD Counts include 234 beds at the [facility] [place] [phone] documented as of this encounter Procedures Procedure Name Priority Date/Time Associated Diagnosis Comments ENGLISH AUTO VISUAL FIELD EXTENDED Routine 04/08/2023 3:00 PM CDT Long-term use 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 documented in this encounter Results * ENGLISH AUTO VISUAL FIELD EXTENDED (04/08/2023 3:00 PM CDT) Anatomical Region Laterality Modality Head External-Camera Photography Narrative 04/11/2023 8:16 AM CDT HVF shows no pattern, focal or widespread defects OD or OS Oleg Becker MD OPHTHALMOLOGY SCHED ORD W PACS documented in this encounter Visit Diagnoses Diagnosis Long-term use 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- Primary documented in this encounter Care Teams Keyseater Operator Relationship Specialty Start Date End Date Sultana Sullivan MD [address] [place] [phone] PCP - General 11/24/22 documented as of this encounter
--- OUTSIDE RECORDS SUMMARY | 2024-10-16 22:30 | XMS_ITS | Encounter Summary ---
Author Organization [facility] Address [address] [facility] [place] [address] Care Team Providers Care Chief Security And Safety Officer Name Role Phone Sultana Sullivan MD Primary Care Provider [phone] Reason for Visit * Reason Onset Date Comments MEDICATION REFILL 03/28/2023 Vit D Encounter Details Date Type Department Care Team (Late st Contact Info) Description 03/28/2023 Refill [facility] - Rheumatology [address] [place] [phone] Saleem Weber MD [facility] [place] [phone] MEDICATION REFILL (Vit D) Social History Tobacco Use Types Packs/Day Years [...] Telephone Encounter - Leticia Juan RN - 04/06/2023 10:52 AM CDT Pharmacy requesting refill of Vitamin D. Called pharmacy, left message that Vitamin D is to be filled by PCP per Dr. Weber, refill was denied. Left VM for patient to call office back regarding refill, awaiting response. * Telephone Encounter - Leticia Juan RN - 03/28/2023 4:28 PM CDT Called patient, no answer. Left VM to call office back regarding refill request received. Awaiting response. * Telephone Encounter - Saleem Weber MD - 03/28/2023 4:23 PM CDT She has osteopenia and said she was following with her PCP . We recommended vitamin D supplementation as per PCP. Last level which we have is in 2020. She needs to fu with her PCP for this high dose vitamin d and can let us know if any further concerns or questions or problem getting in touch with PCP. Refusing the prescription. Office staff to inform her. * Telephone Encounter - Leticia Juan RN - 03/28/2023 9:28 AM CDT Received fax from [facility] that Patient was expecting a prescription to be called in? Refill Request Sultana Carlton RAFITA: 02/09/23 NOV due: NOV scheduled: 07/13/2023 LRF: 06/02/22 Qty Disp: 12 # of refills: 3 Labs: 11/22/22 Allergies: No Known Allergies Pended Medication Order: Requested Prescriptions Pending Prescriptions Disp Refills ??? vitamin D, ergocalciferol, (Drisdol) 1.25 MG (35594 UT) capsule 12 capsule 3 Sig: Take 1 (one) capsule by mouth every 7 days documented in this encounter Plan of Treatment Upcoming Encounters Date Type Department Care Team (Late st Contact Info) Description 10/31/2024 10:00 AM CAN RUNNER Office Visit 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
--- OUTSIDE RECORDS SUMMARY | 2024-10-16 22:30 | XMS_ITS | Encounter Summary ---
Author Organization [facility] Address [address] [place] [address] Care Team Providers Care Garage Helper Name Role Phone Sultana Sullivan MD Primary Care Provider Reason for Visit * Reason Comments Follow-up FOLLOW UP - RA ; BEVERLEY Encounter Details Date Type Department Care Team (Late st Contact Info) Description 07/13/2023 11:00 AM CDT Office Visit [facility] - Rheumatology [address] [place] [phone] Saleem Weber MD [address] [place] [address] MD [place] [phone] Rheumatoid arthritis, involving unspecified site, unspecified whether rheumatoid factor present (HCC) (Primary Dx); 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; Long-term use 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; intermission coordinator 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; Arthralgia, unspecified [...] Sign Reading Time Taken Comments Blood Pressure 122/72 07/13/2023 11:10 AM CDT Pulse 74 07/13/2023 11:10 AM CDT Temperature 36.2 ??C (97.1 ??F) 07/13/2023 11:10 AM C DT Respiratory Rate - - Oxygen Saturation 98% 07/13/2023 11:10 AM CDT Inhaled Oxygen Concentration - - Weight 47.2 kg (104 lb) 07/13/2023 11:10 AM CDT Height 152.4 cm (5') 07/13/2023 11:10 AM CDT Body Mass Index 20.31 07/13/2023 11:10 AM CDT documented in this encounter Patient Instructions * Patient Instructions* Saleem Weber MD - 07/13/2023 11:43 AM CDT - Will restart Rituximab 1000 mg Q6 months, day 1 and day 15 - Follow up in 4 months with me and Dr. Hoffman on Tuesday mornings. - Please let us know if any worsening symptoms - Labs with next infusion - T spot at [facility] along with monitoring labs q 8 weeks. If you need to schedule,change or cancel your Rheumatology appointment -at the [facility] ([facility]) at [address] [place] [address], call [phone] or [phone] (option 1) If you choose to get labs or imaging at an outside facility, it is your (as the patient) responsibility to have these results faxed to us at [phone] If you need a refill, please call your Pharmacy first and have them send us a refill request via Fax at [phone]. If you have been given a referral to a new specialist at [facility] and have not received a call to schedule within 1 week, please call [phone] to schedule your visit. If you have been referred to Physical Therapy, but do not receive a call from them to schedule an appointment within 1 week, please call [phone] to schedule your Physical Therapy appointment. You can also utilize the Physical Therapy website at [email or web address] to make an appointment. If you need to leave a message for Dr. Weber you can send her an electronic message via GetBack.Her office FAX number is [phone]. If you have an emergency after hours, you can reach the machine precision etcher Fellow by calling the Horse Identifier at [phone], but please seek appropriate care at Urgent Care or Emergency Room. documented in this encounter Progress Notes * Catherine Hoffman MD - 07/13/2023 11:26 AM CDT Patient seen and examined with fellow Dr. Weber. Please see note for further details. I confirm history, exam, assessment and plan. In addition I note: Interval history: patient is 63 year old female with Rheumatoid arthritis To day she reports had one dose of Rituxin and did not go for 2nd dose, she was confused. She continue to have joint pain and swelling in her hands, elbows, knees and feet Exam: Vitals: 07/13/23 1110 BP: 122/72 Pulse: 74 Temp: 97.1 ??F (36.2 ??C) SpO2: 98% Weight: 47.2 kg (104 lb) Height: 1.524 m (5') MCP's T1 S) bilaterally with ulnar deviation PIP's T1 bilaterally Left 4th and 5th fingers, unable to raise, flexion contractures Wrists T1 bilaterally with decreased ROM Elbows T1 S1 with fixed flexion deformities Shoulders T1 bilaterally with decreased ROM Right knee T1 S1, left knee T1 Mild neck tenderness Heart: RRR Lungs: clear Last labs: 06/17/23, CMP wnl ESR 105 Assessment/Plan: Dr. Serna's patient Patient is 63 year old female with Seropositive Rheumatoid arthritis, she tried different medicinesin the past. She got only one dose of Rituxin 04/01 Had LFT elevation with Methotrexate Had head ache with Tofacitinib She is not interested in starting injections She never started Upadacitinib, she says tired of taking medicines, discussed various options, agreed to begin Rituximab, reorder again She stopped SSZ due GI side effects with higher doses She is not interested begin Prednisone Continue Naproxen 500mg twice daily Check labs to monitor potential toxicity of medicine and disease process F/u in 4 months 07/13/2023 11:26 AM See fellow's note for further details Catherine Hoffman MD * Saleem Weber MD - 07/13/2023 11:00 AM CDT Rheumatology Clinic Consultation Note Patient: Sultana Vincent ( , 1960, 63 year old female) Encounter Date: 07/13/2023 Chief Concern: seropositive RA (+RF, +CCP, no erosions??in 2020) LCV:??02/09/23 Subjective History of Present Illness: Sultana Vincent??is a 62??year old??female??presenting for follow up of seropositive RA (+Rf, +CCP,no erosions??in 2020) Last clinic visit: 02/09/23 ?? Interval history: Today: Stated all her joints including hands, neck, shoulders, fingers, ankles hurt along with on and off swelling. States she feels stiffness all over her body all the time. ?? On her past visits,?? various options were discussed??including??injectables/ infusions/ TNF agents like Enbrel, Humira, Cimzia, Rituximab??all of which were re-visited today, risks and benefits discussed with the patient. Explained that??Rinvoq also??belongs to same class of RAKEL inhibitors like Xeljanz??but continued todeny it.??denies to try steroids for flares.?? Were able to start SSZ but when increased to 1500 mg BD, had Nausea and stopped it on her own altogether. She did not start the HCQ She finally agreed to start RTX but looks like had only one day 1 infusion on 04/06 nd never got herDay 15. I did call the infusion center to get in touch with her but they were not able to. She does have dry eyes. Denies rashes, vision issues, raynaud's, ulcers, sores. ?? Current meds naproxen??500 mg??bid?? RTX, 1st dose on 04/06/23 and missed the next one. ?? Previous history: Xeljanz 11 mg daily: [...] doesn't want to take many meds. ?? Previous History:?? During last??few visits, there was an [...] and social history: Was working in a [email or web address], [place] Has 3 sons, no miscarriages Doesn't know if there was any family history, lost parents early. Smoked 1 ppd for >30 years and quit last year 2020 after RA diagnosis Review of Systems: Other systems reviewed and negative or noncontributory except as stated in the HPI. Home Medications: Current Outpatient Medications: ??? metroNIDAZOLE (Flagyl) 500 MG tablet, Take 1 (one) tablet by mouth, Disp: , Rfl: ??? naproxen (Naprosyn) 500 MG tablet, Take 1 (one) tablet by mouth 2 times daily, Disp: 180 tablet, Rfl: 3 ??? nitrofurantoin monohyd macro crystals (Macrobid) 100 MG capsule, TAKE 1 CAPSULE BY MOUTH EVERY 12 HOURS FOR 7 DAYS, Disp: , Rfl: ??? vitamin D, ergocalciferol, (Drisdol) 1.25 MG (21195 UT) capsule, Take 1 (one) capsule by [...] Types: Cigarettes Quit date: 03/10/2021 Years since quittin.3 ??? Smokeless tobacco: Never Vaping Use ??? Vaping Use: Never used Substance and Sexual Activity ??? Alcohol use: Never ??? Drug use: Never ??? Sexual activity: Not Currently Family History: No family history on file. Patient Care Team: Sultana Sullivan MD Patient Care Team: Sultana Sullivan MD as PCP - General Objective Physical Exam BP 122/72 (BP SITE: RIGHT ARM, BP POSITION: SITTING, BP CUFF SIZE: 11) Pulse 74 Temp 97.1 ??F (36.2 ??C) (Skin) Ht 1.524 m (5') Wt 47.2 kg (104 lb) SpO2 98% BMI 20.31 kg/m?? GENERAL: NAD HEENT/NECK: White sclerae. Ext ears wnl. No oropharyngeal lesions. No palpable masses. CHEST/LUNGS: Normal work of breathing, CTAB. CARDIOVASCULAR: Regular rhythm, crisp S1/S2. No BRENDAN. ABDOMEN: S/ND/NT. SKIN/NAILS: No rashes on exposed skin. PSYCH: Alert, appropriately interactive. NEURO: Sensation intact to soft touch. Normal muscle bulk and strength in trunk and limbs. MSK: MCP's T1 S2 bilaterally??with ulnar deviation PIP's T1 bilaterally Left 4th and 5th fingers, unable to raise, flexion contractures Wrists T1 bilaterally with decreased ROM Elbows T1 S1 with fixed flexion deformities Shoulders T1 bilaterally with decreased ROM Knees T1 bilaterally Mild neck tenderness Labs: Reviewed, including those as noted below Results for orders placed or performed in visit on 06/17/23 (from the past 2352 hour(s)) CBC WITH DIFFERENTIAL Result Value Ref Range WBC 6.2 3.4 - 10.8 x10E3/uL RBC 4.81 3.77 - 5.28 x10E6/uL Hemoglobin 11.1 11.1 - 15.9 g/dL Hematocrit 36.6 34.0 - 46.6 % MCV 76 (L) 79 - 97 fL MCH 23.1 (L) 26.6 - 33.0 pg MCHC 30.3 (L) 31.5 - 35.7 g/dL RDW 14.6 11.7 - 15.4 % Platelet Count 808 (HH) 150 - 450 x10E3/uL Granulocytes % 60 Not Estab. % Lymphocytes % 18 Not Estab. % Monocytes % 14 Not Estab. % Eosinophils % 7 Not Estab. % Basophils % 1 Not Estab. % Immature Cells NOT AVAILABLE Granulocytes Absolute 3.7 1.4 - 7.0 x10E3/uL Lymphocytes Absolute 1.1 0.7 - 3.1 x10E3/uL Monocytes Absolute 0.9 0.1 - 0.9 x10E3/uL Eosinophils Absolute 0.4 0.0 - 0.4 x10E3/uL Basophils Absolute 0.0 0.0 - 0.2 x10E3/uL Immature Granulocytes 0 Not Estab. % Immature Granulocytes Absolute 0.0 0.0 - 0.1 x10E3/uL nRBC NOT AVAILABLE Comment Hematology NOT AVAILABLE COMPREHENSIVE METABOLIC PANEL Result Value Ref Range Glucose 97 70 - 99 mg/dL BUN 17 8 - 27 mg/dL Creatinine 0.81 0.57 - 1.00 mg/dL eGFR by CKD-EPI 81 >59 mL/min/1.73 BUN/Creatinine Ratio 21 12 - 28 Sodium 140 134 - 144 mmol/L Potassium 4.7 3.5 - 5.2 mmol/L Chloride 101 96 - 106 mmol/L CO2 24 20 - 29 mmol/L Calcium 9.3 8.7 - 10.3 mg/dL Protein Total 7.3 6.0 - 8.5 g/dL Albumin 3.7 (L) 3.9 - 4.9 g/dL Globulin Total 3.6 1.5 - 4.5 g/dL Albumin/Globulin Ratio 1.0 (L) 1.2 - 2.2 Bilirubin Total <0.2 0.0 - 1.2 mg/dL Alkaline Phosphatase 86 44 - 121 IU/L AST 10 0 - 40 IU/L ALT 7 0 - 32 IU/L C-REACTIVE PROTEIN Result Value Ref Range C-Reactive Protein 72 (H) 0 - 10 mg/L ERYTHROCYTE SEDIMENTATION RATE Result Value Ref Range Erythrocyte Sedimentation Rate Westergren 105 (H) 0 - 40 mm/hr COMPLEMENT C4 Result Value Ref Range Complement C4 28 12 - 38 mg/dL COMPLEMENT C3 Result Value Ref Range Complement C3 156 82 - 167 mg/dL HEPATITIS C ANTIBODY Result Value Ref Range Hepatitis C Antibody Non Reactive Non Reactive HEPATITIS B SURFACE ANTIGEN W RFLX CONFIRMATION Result Value Ref Range Hepatitis B Virus Surface Antigen Negative Negative SMOOTH MUSCLE ANTIBODY Result Value Ref Range Actin (Smooth Muscle) Antibody 29 (H) 0 - 19 Units URINALYSIS REFLEX MICROSCOPIC REFLEX CULTURE Result Value Ref Range Specific Keller UA 1.025 1.005 - 1.030 pH UA 5.5 5.0 - 7.5 Color UA Yellow Yellow Appearance Clear Clear Leukocyte UA 1+ (Abnormal) Negative Protein UA Negative Negative/Trace Glucose UA Negative Negative Ketone UA Negative Negative Occult Blood Urine Negative Negative Bilirubin UA Negative Negative Urobilinogen 1.0 0.2 - 1.0 mg/dL Nitrite UA Negative Negative Microscopic Examination Urine See below: Microscopic Examination Urine NOT AVAILABLE Urinalysis Reflex URINALYSIS MICROSCOPIC ONLY REFLEXED Result Value Ref Range WBC UA 0-5 0 - 5 /hpf RBC UA 0-2 0 - 2 /hpf Epithelial Cells (non renal) >10 (Abnormal) 0 - 10 /hpf Epithelial Cells (renal) NOT AVAILABLE Casts ua None seen None seen /lpf Casts UA NOT AVAILABLE Crystals UA NOT AVAILABLE Crystals UA NOT AVAILABLE Mucus UA NOT AVAILABLE Bacteria UA Few None seen/Few Yeast UA NOT AVAILABLE Trichomonas UA NOT AVAILABLE Comment Urine NOT AVAILABLE CULTURE URINE Result Value Ref Range Urine Culture Routine Final report Result 1 No growth COMPLEMENT TOTAL Result Value Ref Range Complement Total CH50 >60 >41 U/mL SCOTT (SM)+SKI INSTRUCTOR ANTIBODY PANEL Result Value Ref Range SKI INSTRUCTOR Antibody 0.7 0.0 - 0.9 AI Scott (ANIA) Antibody <0.2 0.0 - 0.9 AI SS-A/SS-B (SJOGREN'S) ANTIBODY PANEL Result Value Ref Range Sjogren's Antibodies (SSA) <0.2 0.0 - 0.9 AI Sjogren's Antibodies (SSB) <0.2 0.0 - 0.9 AI CHROMATIN ANTIBODY Result Value Ref Range Antichromatin Antibodies <0.2 0.0 - 0.9 AI SCLERODERMA 70 (SCL) ANTIBODY Result Value Ref Range Antiscleroderma-70 Antibody <0.2 0.0 - 0.9 AI DNA ANTIBODY DOUBLE STRANDED Result Value Ref Range Anti-dsDNA Quantitative 2 0 - 9 IU/mL RANULFO W REFLEX DS-DNA+ANIA+SSJ Result Value Ref Range RANULFO Direct Negative Negative HISTONE ANTIBODY Result Value Ref Range Anti-Histone Antibody 0.6 0.0 - 0.9 Units QUANTIFERON TB-GOLD Result Value Ref Range QuantiFERON Incubation Incubation performed. QuantiFERON Criteria QuantiFERON TB1 Ag Value 0.19 IU/mL QuantiFERON TB2 Ag Value 0.16 IU/mL QuantiFERON Nil Value 0.36 IU/mL QuantiFERON Mitogen Value 0.85 IU/mL QuantiFERON-TB Gold Plus Indeterminate (Abnormal) Negative DNA ANTIBODY DS CRITHIDIA IFA Result Value Ref Range dsDNA Antibody Crithidia IFA Negative Negative Other Studies: Labs 06/17/23: CMP stable CRP 72 from 115 Platelets 808 ESR 105 from 110 (past > 130) RANULFO panel neg Actin smooth muscle Ab [...] yet.??Authorization for Rinvoq denied. Current meds naproxen??500 mg??bid?? RTX, 1st dose on 04/06/23 and missed the next one. Previous history: Xeljanz 11 mg daily: dizziness, [...] and doesn't want to take many meds. Previous history: Xeljanz 11 mg daily: dizziness, [...] and doesn't want to take many meds. After a long discussion, was okay to be started on Rituximab last visit, but looks like had only one day 1 infusion on 04/06 nd never got her Day 15. Said she did not remember and was confused. Had noreactions or side effects from her one dose. Risks and benefits discussed. Status:??Active ?? # Thrombocytosis: Now with 808 (baseline 600-700). Likely in the setting of inflammation. Will monitor. #.??Osteopenia: Following and being managed by PCP. Was on high dose vitamin D weekly previously. ?? #. Drug Toxicity Monitoring - Labs as below. -??Recommend to be up to date with??Cancer screenings??including??breast and colonl cancer screening, but needs lung cancer screening given history of tobacco abuse and was asked to follow up with her PCP.? #. Immunosuppression due to drug therapy - Latent infection screen: Hep B and C screen neg 06/2023. TB quant??negative in 11/2022. TB 06/2023 indeterminate. - Immunizations per PCP: for all patients on immunosuppressive therapy we recommend annual influenza vaccine, COVID19 vaccine, Prevnar, Pneumovax, Shingrix.??Patient denies COVID vaccine.?? - Patient advised to contact clinic in case of any infections or antibiotic use.? RECOMMENDATIONS: []??Continue Naproxen 500 mg BD [] We will restart Rituximab 1000 mg IV D1 and D15 every 6 months with IV methylprednisolone 125 mg. Infusion center updated. ?? [] Osteopenia management as advised??by PCP []??Labs??as below with infusion including Immunoglobulin levels.?? [] T spot test at [facility] along with standing labs given her high inflammatory markers. ?? #. Follow-up: In??4??months or sooner if needed. ?? This patient was seen and staffed with attending .??Yasmin.? Saleem Weber MD Rheumatology Fellow [facility] Medicine Encounter orders: Orders Placed This Encounter ??? CBC WITH DIFFERENTIAL Standing Status: Future Standing Expiration Date: 08/13/2024 Order Specific Question: Release to patient Answer: Immediate ??? COMPREHENSIVE METABOLIC PANEL Standing Status: Future Standing Expiration Date: 08/13/2024 Order Specific Question: Release to patient Answer: Immediate ??? C-REACTIVE PROTEIN Standing Status: Future Standing Expiration Date: 08/13/2024 Order Specific Question: Release to patient Answer: Immediate ??? ERYTHROCYTE SEDIMENTATION RATE Standing Status: Future Standing Expiration Date: 08/13/2024 Order Specific Question: Release to patient Answer: Immediate ??? CBC WITH DIFFERENTIAL Standing Status: Standing Number of Occurrences: 6 Standing Expiration Date: 08/13/2024 Order Specific Question: Release to patient Answer: Immediate ??? COMPREHENSIVE METABOLIC PANEL Standing Status: Standing Number of Occurrences: 6 Standing Expiration Date: 08/13/2024 Order Specific Question: Release to patient Answer: Immediate ??? C-REACTIVE PROTEIN Standing Status: Standing Number of Occurrences: 6 Standing Expiration Date: 08/13/2024 Order Specific Question: Release to patient Answer: Immediate ??? ERYTHROCYTE SEDIMENTATION RATE Standing Status: Standing Number of Occurrences: 6 Standing Expiration Date: 08/13/2024 Order Specific Question: Release to patient Answer: Immediate ??? IGA BLOOD Standing Status: Future Standing Expiration Date: 08/06/2024 Order Specific Question: Release to patient Answer: Immediate ??? IGG BLOOD Standing Status: Future Standing Expiration Date: 08/06/2024 Order Specific Question: Release to patient Answer: Immediate ??? IGM BLOOD Standing Status: Future Standing Expiration Date: 08/06/2024 Order Specific Question: Release to patient Answer: Immediate ??? TB TEST T SPOT [facility] Test ID: [id number] Order Specific Question: Release to patient Answer: Immediate documented in this encounter Plan of Treatment Upcoming Encounters Date Type Department Care Team (Late st Contact Info) Description 10/31/2024 10:00 AM SPECTACLE TRUER Office Visit [facility] - Rheumatology [address] [place] [address], [place] [phone] Antonio Bowles MD [address] [place] [address] [place] [phone] 02/01/2025 9:00 AM CDT Appointment [facility] [address] [place] [phone] Sultana Sullivan MD [address] [place] [phone] Scheduled Orders Name Type Priority Associated Diagnoses Orde r Schedule CBC WITH DIFFERENTIAL Lab Routine Rheumatoid arthritis, involving unspecified site, unspecified whether rheumatoid factor present (HCC) 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 Long-term use 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 intermission coordinator 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 Arthralgia, unspecified joint High risk medications (not anticoagulants) long-term use E-8Weeks for 6 Occurrences starting 07/13/2023 until 08/13/2024, 1 completed COMPREHENSIVE METABOLIC PANEL Lab Routine Rheumatoid arthritis, involving unspecified site, unspecified whether rheumatoid factor present (HCC) 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 Long-term use 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 penitentiary 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 Arthralgia, unspecified joint High risk medications (not anticoagulants) long-term use E-8Weeks for 6 Occurrences starting 07/13/2023 until 08/13/2024, 1 completed C-REACTIVE PROTEIN Lab Routine Rheumatoid arthritis, involving unspecified site, unspecified whether rheumatoid factor present (HCC) Therapeutic drug monitoring Long-term use 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 penitentiary 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 Arthralgia, unspecified joint High risk medications (not anticoagulants) long-term use E-8Weeks for 6 Occurrences starting 07/13/2023 until 08/13/2024, 1 completed ERYTHROCYTE SEDIMENTATION RATE Lab Routine Rheumatoid arthritis, involving unspecified site, unspecified whether rheumatoid factor present (HCC) Therapeutic drug monitoring Long-term use 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 penitentiary 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 Arthralgia, unspecified joint High risk medications (not anticoagulants) long-term use E-8Weeks for 6 Occurrences starting 07/13/2023 until 08/13/2024, 1 completed TB TEST T SPOT Lab Routine Rheumatoid arthritis, involving unspecified site, unspecified whether rheumatoid factor present (HCC) Therapeutic drug monitoring Long-term use 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 penitentiary 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 Arthralgia, unspecified joint High risk medications (not anticoagulants) long-term use Ordered: 07/13/2023 documented as of this encounter Results * (ABNORMAL) IGM BLOOD (07/30/2024 9:30 AM CDT) [facility] IgM 35(L) 37 - 286 mg/dL 07/30/2024 11:26 AM CDT [facility] Blood BLOOD SPECIMEN / Unknown Venipuncture / Unknown 07/30/2024 9:30 AM CDT 07/30/2024 10:32 AM CDT Catherine Hoffman MD LAB - CHEMISTR Y ORDERABLES [address] [address], [place] [phone] * IGG BLOOD (07/30/2024 9:30 AM CDT) IgG 1,182 767 - 1,590 mg/dL 07/30/2024 11:26 AM CDT [facility] Blood BLOOD SPECIMEN / Unknown Venipuncture / Unknown 07/30/2024 9:30 AM CDT 07/30/2024 10:32 AM CDT Catherine Hoffman MD LAB - CHEMISTR Y ORDERABLES Performing Organization Address City/[facility]/ZIP Co de Phone Number [address] [address], [place] [phone] * IGA BLOOD (07/30/2024 9:30 AM CDT) IgA 250 61 - 356 mg/dL 07/30/2024 11:26 AM CDT [facility] Blood BLOOD SPECIMEN / Unknown Venipuncture / Unknown 07/30/2024 9:30 AM CDT 07/30/2024 10:32 AM CDT Catherine Hoffman MD LAB - CHEMISTR Y ORDERABLES [address] [address], [place] [phone] * (ABNORMAL) ERYTHROCYTE SEDIMENTATION RATE (07/30/2024 9:30 AM CDT) Erythrocyte Sedimentation Rate Westergren 48(H) 0 - 30 MM/HR 07/30/2024 10:17 AM CDT [facility] Blood BLOOD SPECIMEN / Unknown Venipuncture / Unknown 07/30/2024 9:30 AM CDT 07/30/2024 9:55 AM CDT Catherine Hoffman MD LAB - HEMATOLO GY ORDERABLES [address] [address], [facility] [phone] * C-REACTIVE PROTEIN (07/30/2024 9:30 AM CDT) Pathologist [facility] [place] C-Reactive Protein <0.5 <=0.5 mg/dL 07/30/2024 10:28 AM CDT [facility] Blood BLOOD SPECIMEN / Unknown Venipuncture / Unknown 07/30/2024 9:30 AM CDT 07/30/2024 9:55 AM CDT Catherine Hoffman MD LAB - CHEMISTR Y ORDERABLES [address] [address], [facility] [phone] * (ABNORMAL) COMPREHENSIVE METABOLIC PANEL (07/30/2024 9:30 AM CDT) [facility] BUN 15 7 - 26 mg/dL 07/30/2024 10:42 AM [facility] Creatinine 0.75 0.56 - 0.96 mg/dL 07/30/2024 10:42 AM [facility] Sodium 140 136 - 145 mmol/L 07/30/2024 10:42 AM T [facility] Potassium 4.1 3.5 - 4.5 mmol/L 07/30/2024 10:42 AM [facility] Chloride 107 98 - 107 mmol/L 07/30/2024 10:42 AM [facility] CO2 24 22 - 29 mmol/L 07/30/2024 10:42 AM [facility] Glucose 90 70 - 115 mg/dL 07/30/2024 10:42 AM [facility] Calcium 9.4 8.4 - 10.2 mg/dL 07/30/2024 10:42 AM [facility] Protein Total 7.5 6.0 - 8.3 g/dL 07/30/2024 10:42 AM [facility] Albumin 4.0 3.4 - 5.0 g/dL 07/30/2024 10:42 AM [facility] Bilirubin Total 0.4 0.2 - 1.2 mg/dL 07/30/2024 10:42 AM [facility] Alkaline Phosphatase 97 40 - 150 U/L 07/30/2024 10:42 AM [facility] ALT 15 5 - 55 U/L 07/30/2024 10:42 AM [facility] AST 20 5 - 34 U/L 07/30/2024 10:42 AM [facility] Anion Gap 9 6 - 16 07/30/2024 10:42 AM [facility] BUN/Creatinine Ratio 20 7 - 23 07/30/2024 10:42 AM [facility] Osmolality Calculated 290 275 - 295 mOsm/kg 07/30/2024 10:42 AM [facility] Albumin/Globulin Ratio 1.1 1.1 - 2.3 07/30/2024 10:42 AM [facility] eGFR by CKD-EPI 88(L) >=90 mL/min/1.7 3 m2 07/30/2024 10:42 AM [facility] Blood BLOOD SPECIMEN / Unknown Venipuncture / Unknown 07/30/2024 9:30 AM CDT 07/30/2024 9:55 AM T Catherine Hoffman MD LAB - CHEMISTR Y ORDERABLES [facility] [address] [place] [address], [facility] [phone] * (ABNORMAL) CBC WITH DIFFERENTIAL (07/30/2024 9:30 AM T) WBC 6.2 4.0 - 10.7 x10E9/L 07/30/2024 9:59 AM [facility] RBC Count 4.95 3.90 - 5.20 x10E12/L 07/30/2024 9:59 AM [facility] Hemoglobin 14.8 11.9 - 15.8 g/dL 07/30/2024 9:59 AM [facility] Hematocrit 44.9 34.8 - 46.1 % 07/30/2024 9:59 AM [facility] MCV 90.7 80.0 - 98.0 fL 07/30/2024 9:59 AM [facility] MCH 29.9 26.7 - 33.6 pg 07/30/2024 9:59 AM [facility] MCHC 33.0 31.7 - 36.3 g/dL 07/30/2024 9:59 AM [facility] RDW-CV 13.6 11.3 - 14.8 % 07/30/2024 9:59 AM [facility] Platelet Count 424(H) 150 - 420 x10E9/L 07/30/2024 9:59 AM [facility] MPV 10.2 7.8 - 11.4 fL 07/30/2024 9:59 AM [facility] Preliminary Absolute Neutrophil 4.32 1.60 - 7.50 x10E9/L 07/30/2024 9:59 AM [facility] Neutrophil % 70.2 41.0 - 74.0 % 07/30/2024 9:59 AM [facility] Lymphocyte % 13.3(L) 17.0 - 47.0 % 07/30/2024 9:59 AM [facility] Monocyte % 8.8 3.0 - 11.0 % 07/30/2024 9:59 AM [facility] Eosinophil % 6.5 0.0 - 7.0 % 07/30/2024 9:59 AM [facility] Basophil % 1.0 0.0 - 1.6 % 07/30/2024 9:59 AM [facility] Immature Granulocytes % 0.2 0.0 - 1.0 % 07/30/2024 9:59 AM [facility] Neutrophil Absolute 4.32 1.60 - 7.50 x10E9/L 07/30/2024 9:59 AM [facility] Lymphocyte Absolute 0.82(L) 1.00 - 4.40 x10E9/L 07/30/2024 9:59 AM CDT [facility] Monocyte Absolute 0.54 0.15 - 1.00 x10E9/L 07/30/2024 9:59 AM CDT [facility] Eosinophil Absolute 0.40 0.00 - 0.60 x10E9/L 07/30/2024 9:59 AM CDT [facility] Basophil Absolute 0.06 0.00 - 0.13 x10E9/L 07/30/2024 9:59 AM CDT [facility] Blood BLOOD SPECIMEN / Unknown Venipuncture / Unknown 07/30/2024 9:30 AM CDT 07/30/2024 9:55 AM CDT Catherine Hoffman MD LAB - HEMATOLO GY ORDERABLES Performing Organization Address City/[facility]/ZIP Co de Phone Number [address] [address], [facility] [phone] * (ABNORMAL) ERYTHROCYTE SEDIMENTATION RATE (07/21/2023 9:29 AM CDT) Erythrocyte Sedimentation Rate Westergren >130(H) 0 - 30 MM/HR 07/21/2023 10:23 AM CDT [facility] Blood BLOOD SPECIMEN / Unknown Venipuncture / Unknown 07/21/2023 9:29 AM CDT 07/21/2023 9:44 AM CDT Catherine Hoffman MD LAB - HEMATOLO GY ORDERABLES [address] [address], [facility] [phone] * (ABNORMAL) C-REACTIVE PROTEIN (07/21/2023 9:29 AM CDT) C-Reactive Protein 4.2(H) <=0.5 mg/dL 07/21/2023 10:03 AM CDT [facility] Blood BLOOD SPECIMEN / Unknown Venipuncture / Unknown 07/21/2023 9:29 AM CDT 07/21/2023 9:38 AM CDT Catherine Hoffman MD LAB - CHEMISTR Y ORDERABLES [facility] [address] [place] [address], [facility] [phone] * (ABNORMAL) COMPREHENSIVE METABOLIC PANEL (07/21/2023 9:29 AM CDT) BUN 16 7 - 26 mg/dL 07/21/2023 10:13 AM [facility] Creatinine 0.55(L) 0.56 - 0.96 mg/dL 07/21/2023 10:13 AM [facility] Sodium 138 136 - 145 mmol/L 07/21/2023 10:13 AM [facility] Potassium 4.5 3.5 - 4.5 mmol/L 07/21/2023 10:13 AM [facility] Chloride 109(H) 98 - 107 mmol/L 07/21/2023 10:13 AM [facility] CO2 19(L) 22 - 29 mmol/L 07/21/2023 10:13 AM [facility] Glucose 89 70 - 115 mg/dL 07/21/2023 10:13 AM [facility] Calcium 8.5 8.4 - 10.2 mg/dL 07/21/2023 10:13 AM [facility] Protein Total 7.3 6.0 - 8.3 g/dL 07/21/2023 10:13 AM [facility] Albumin 2.8(L) 3.4 - 5.0 g/dL 07/21/2023 10:13 AM [facility] Bilirubin Total 0.2 0.2 - 1.2 mg/dL 07/21/2023 10:13 AM [facility] Alkaline Phosphatase 79 40 - 150 U/L 07/21/2023 10:13 AM [facility] ALT 8 5 - 55 U/L 07/21/2023 10:13 AM [facility] AST 16 5 - 34 U/L 07/21/2023 10:13 AM [facility] Anion Gap 10 6 - 16 07/21/2023 10:13 AM [facility] BUN/Creatinine Ratio 29(H) 7 - 23 07/21/2023 10:13 AM [facility] Osmolality Calculated 287 275 - 295 mOsm/kg 07/21/2023 10:13 AM [facility] Albumin/Globulin Ratio 0.6(L) 1.1 - 2.3 07/21/2023 10:13 AM [facility] eGFR by CKD-EPI >90 >=90 mL/min/1.7 3 m2 07/21/2023 10:13 AM [facility] Blood BLOOD SPECIMEN / Unknown Venipuncture / Unknown 07/21/2023 9:29 AM CDT 07/21/2023 9:44 AM CDT Catherine Hoffman MD LAB - CHEMISTR Y ORDERABLES Performing Organization Address City/State/[facility] Co de Phone Number [facility] [address] [place] [phone], [facility] [phone] * (ABNORMAL) CBC WITH DIFFERENTIAL (07/21/2023 9:29 AM CDT) WBC 7.1 3.5 - 10.5 10? 3 /uL 07/21/2023 9:58 AM [facility] RBC 4.96 3.80 - 5.20 10? 6 /uL 07/21/2023 9:58 AM [facility] Hemoglobin 11.9(L) 12.0 - 15.6 g/dL 07/21/2023 9:58 AM [facility] Hematocrit 38.4 35.0 - 45.0 % 07/21/2023 9:58 AM [facility] MCV 77.4(L) 80.7 - 98.3 fL 07/21/2023 9:58 AM [facility] MCH 24.0(L) 26.7 - 34.0 pg 07/21/2023 9:58 AM [facility] MCHC 31.0 30.8 - 35.9 g/dL 07/21/2023 9:58 AM [facility] RDW-SD 48.3 36.0 - 50.0 fL 07/21/2023 9:58 AM [facility] RDW-CV 17.4(H) 11.2 - 14.8 % 07/21/2023 9:58 AM [facility] Platelet Count 587(H) 150 - 400 10? 3 /uL 07/21/2023 9:58 AM [facility] MPV 9.5 9.4 - 12.9 fL 07/21/2023 9:58 AM [facility] nRBC Absolute 0.00 0 10? 3 /uL 07/21/2023 9:58 AM [facility] nRBC Auto 0.0 0 /100 WBC 07/21/2023 9:58 AM [facility] Neutrophils % 71.0(H) 35.0 - 70.0 % 07/21/2023 9:58 AM [facility] Lymphocytes % 12.5(L) 20.0 - 43.0 % 07/21/2023 9:58 AM [facility] Monocytes % 8.9 5.0 - 13.0 % 07/21/2023 9:58 AM [facility] Eosinophils % 6.7(H) 0.0 - 6.0 % 07/21/2023 9:58 AM [facility] Basophil % 0.6 0.0 - 2.0 % 07/21/2023 9:58 AM [facility] Neutrophils Absolute 5.01 1.60 - 7.00 10? 3 /uL 07/21/2023 9:58 AM [facility] Lymphocyte Absolute 0.88(L) 1.10 - 3.90 10? 3 /uL 07/21/2023 9:58 AM [facility] Monocytes Absolute 0.63 0.26 - 1.07 10? 3 /uL 07/21/2023 9:58 AM [facility] Eosinophils Absolute 0.47 0.00 - 0.47 10? 3 /uL 07/21/2023 9:58 AM [facility] Basophils Absolute 0.04 0.00 - 0.08 10? 3 /uL 07/21/2023 9:58 AM CDT [facility] Immature Granulocytes % 0.3 0.0 - 1.0 % 07/21/2023 9:58 AM CDT [facility] Immature Granulocytes Absolute 0.02 07/21/2023 9:58 AM CDT [facility] Blood BLOOD SPECIMEN / Unknown Venipuncture / Unknown 07/21/2023 9:29 AM CDT 07/21/2023 9:44 AM CDT Catherine Hoffman MD LAB - HEMATOLO GY ORDERABLES Performing Organization Address City/State/[facility] Co de Phone Number [facility] [address] [place] [phone], [facility] [phone] documented in this encounter Visit Diagnoses Diagnosis Rheumatoid arthritis, involving unspecified site, unspecified whether rheumatoid factor present ([facility])- Primary Therapeutic drug monitoring Encounter for therapeutic drug monitoring Long-term use 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 intermission coordinator 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 Arthralgia, unspecified joint High risk medications (not anticoagulants) long-term use Encounter for long-term (current) use of other medications documented in this encounter Care Teams Garage Helper Relationship Specialty Start Date End Date Sultana Sullivan MD [address] [place] [phone] PCP - General 11/24/22 documented as of this encounter
--- OUTSIDE RECORDS SUMMARY | 2024-10-16 22:30 | XMS_ITS | Encounter Summary ---
Author Organization [facility] Address [address] [place] [address] Care Team Providers Care Supervisor Grinding Name Role Phone Sultana Sullivan MD Primary Care Provider [phone] Reason for Visit * Consultation (Routine) - Closed Specialty Diagnoses / Procedures Referred By Contac t Referred To Contact Occupational Therapy Diagnoses Rheumatoid arthritis involving multiple sites with positive rheumatoid factor (HCC) Pepe Witt MD [address] [facility] [place] [address] [facility] Ot [address] [place] [address] Referral ID Status Reason Start Date Expiration Date V isits Requested Visits Authorized [id number] Closed Specialty Services Required 03/22/2024 03/22/2025 1 1 Encounter Details Date Type Department Care Team (Late st Contact Info) Description 03/23/2024 2:27 PM CDT - 03/23/2024 11:59 PM T Hospital Encounter [facility] OT [address] [place] [phone] Pepe Witt MD [address] [facility] [place] [address] Ervin Rodriguez OT Hand/Upper Extremity Surgery Discharge [...] st Contact Info) Description 10/31/2024 10:00 AM IT SPECIALIST Office Visit [facility] - Rheumatology [address] [place] [address], [place] [address] Antonio Bowles MD [address] [place] [address] [place] [phone] 02/01/2025 9:00 AM CDT Appointment [facility] [address] [place] [id number] Sultana Sullivan MD [address] [place] [phone] documented as of this encounter Visit Diagnoses Not on filedocumented in this encounter Care Teams Supervisor Grinding Relationship Specialty Start Date End Date Sultana Sullivan MD [address] [place] [phone] PCP - General 11/24/22 documented as of this encounter
--- OUTSIDE RECORDS SUMMARY | 2024-10-16 22:30 | XMS_ITS | Encounter Summary ---
Author Organization [facility] Address [address] [facility] [place] [address] Care Team Providers Care Gas Appliance Servicer Name Role Phone Sultana Sullivan MD Primary Care Provider [phone] Encounter Details Date Type Department Care Team (Late Contact Info) Description 02/25/2023 Orders Only [facility] [address] [place] [phone] Saleem Weber MD [address] [place], [place] [phone] Rheumatoid arthritis, involving unspecified site, unspecified [...] (Late Contact Info) Description 10/31/2024 10:00 AM TRUCK TERMINAL MANAGER Office Visit [facility] - Rheumatology [address] [place] [phone] Antonio Bowles MD [address] [facility] [place] [phone] 02/01/2025 9:00 AM CDT Appointment [facility] [address] [place] [address] Sultana Sullivan MD [facility] [place] [phone] documented as of this encounter Visit Diagnoses Diagnosis Rheumatoid arthritis, involving unspecified site, unspecified whether rheumatoid factor present (HCC) Therapeutic drug monitoring Encounter for therapeutic drug monitoring documented in this encounter Care Teams Gas Appliance Servicer Relationship Specialty Start Date End Date Sultana Sullivan MD [address] [place] [phone] PCP - General 11/24/22 documented as of this encounter
--- OUTSIDE RECORDS SUMMARY | 2024-10-16 22:30 | XMS_ITS | Encounter Summary ---
Author Organization [facility] Address [address] [place] [address] Care Team Providers Care Brush Machine Setter Name Role Phone Unavailable Primary Care Provider Unavailabl e Encounter Details Date Type Department Care Team (Late st Contact Info) Description 11/10/2022 12:30 PM FOOTWEAR MACHINERY INSTRUCTOR - 11/10/2022 11:59 PM FOOTWEAR MACHINERY INSTRUCTOR Hospital Encounter [facility] [address] [place] [phone] Saleem Weber MD [address] [facility] [id number] Discharge Disposition: Home or Self Care Social [...] Coronavirus/COVID-19? No / Unsure 11/10/2022 12:27 PM FOOTWEAR MACHINERY INSTRUCTOR documented as of this encounter Medications at Time of Discharge Medication Sig Dispensed Refills Start Date End Date naproxen (NAPROSYN) 500 MG tabletIndications:Rheum atoid arthritis, involving unspecified site, unspecified whether rheumatoid factor present (HCC) Take 1 (one) tablet by mouth 2 times daily 180 tablet 4 07/22/2021 01/11/2023 sulfaSALAzine (Azulfidine) 500 MG tablet Please take 1 pill twice daily for ten days and repeat labs. If labs are okay, then increase to 3 tabs twice daily 180 tablet 2 11/10/2022 02/09/2023 upadacitinib ER (RINVOQ) 15 MG tablet Take 1 (one) tablet by mouth once daily 15 tablet 05/05/2022 02/09/2023 vitamin D, ergocalciferol, (Drisdol) 1.25 MG (16848 UT) capsule Take 1 (one) capsule by mouth every 7 days 06/02/2022 01/18/2024 documented as of this encounter Plan of Treatment Upcoming Encounters Date Type Department Care Team (Late st Contact Info) Description 10/31/2024 10:00 AM FOOTWEAR MACHINERY INSTRUCTOR Office Visit [facility] - Rheumatology [address] [place] [address] [place] [phone] Antonio Bowles MD [address] [place] [address] [place] [phone] 02/01/2025 9:00 AM CDT Appointment [facility] [address] [place] [address] Sultana Sullivan MD [address] [place] [phone] documented as of this encounter Procedures Procedure Name Priority Date/Time Associated Diagnosis Comments URINALYSIS MICROSCOPIC ONLY REFLEXED Routine 11/22/2022 3:44 PM FOOTWEAR MACHINERY INSTRUCTOR Rheumatoid arthritis, involving unspecified site, unspecified whether rheumatoid factor present (HCC) Arthralgia, unspecified joint URINALYSIS REFLEX MICROSCOPIC REFLEX CULTURE Routine 11/22/2022 3:44 PM FOOTWEAR MACHINERY INSTRUCTOR Rheumatoid arthritis, involving unspecified site, unspecified whether rheumatoid factor present (HCC) Arthralgia, unspecified joint COMPLEMENT ACTIVITY TOTAL (CH50) Routine 11/10/2022 1:20 PM FOOTWEAR MACHINERY INSTRUCTOR Rheumatoid arthritis with negative rheumatoid factor, involving unspecified site (HCC) Rheumatoid arthritis, involving unspecified site, unspecified whether rheumatoid factor present (HCC) Arthralgia, unspecified joint SCOTT/HOTEL MAINTENANCE ENGINEER (ANIA) ANTIBODY IGG Routine 11/10/2022 1:20 PM FOOTWEAR MACHINERY INSTRUCTOR Rheumatoid arthritis with negative rheumatoid factor, involving unspecified site (HCC) Rheumatoid arthritis, involving unspecified site, unspecified whether rheumatoid factor present (HCC) Arthralgia, unspecified joint RANULFO BLOOD SINGLE PATTERN Routine 11/10/2022 1:19 PM FOOTWEAR MACHINERY INSTRUCTOR Rheumatoid arthritis, involving unspecified site, unspecified whether rheumatoid factor present (HCC) Arthralgia, unspecified joint Therapeutic drug monitoring RANULFO HEP-2 IGG BY IFA Routine 11/10/2022 1:19 PM FOOTWEAR MACHINERY INSTRUCTOR Rheumatoid arthritis, involving unspecified site, unspecified whether rheumatoid factor present (HCC) Arthralgia, unspecified joint Therapeutic drug monitoring QUANTIFERON-TB GOLD PLUS 4-TUBE Routine 11/10/2022 1:19 PM FOOTWEAR MACHINERY INSTRUCTOR Rheumatoid arthritis, involving unspecified site, unspecified whether rheumatoid factor present (HCC) Arthralgia, unspecified joint Therapeutic drug monitoring CHROMATIN ANTIBODY Routine 11/10/2022 1: 19 PM FOOTWEAR MACHINERY INSTRUCTOR Rheumatoid arthritis, involving unspecified site, unspecified whether rheumatoid factor present (HCC) Arthralgia, unspecified joint Therapeutic drug monitoring DNA ANTIBODY DS CRITHIDIA TITER Routine 11/10/2022 1:19 PM FOOTWEAR MACHINERY INSTRUCTOR Rheumatoid arthritis, involving unspecified site, unspecified whether rheumatoid factor present (HCC) Arthralgia, unspecified joint Therapeutic drug monitoring SCOTT (SM) ANTIBODY ANIA Routine 11/10/2022 1:19 PM FOOTWEAR MACHINERY INSTRUCTOR Rheumatoid arthritis, involving unspecified site, unspecified whether rheumatoid factor present (HCC) Arthralgia, unspecified joint Therapeutic drug monitoring C-REACTIVE PROTEIN Routine 11/10/2022 1: 19 PM FOOTWEAR MACHINERY INSTRUCTOR Rheumatoid arthritis, involving unspecified site, unspecified whether rheumatoid factor present (HCC) Arthralgia, unspecified joint Therapeutic drug monitoring RANULFO BLOOD SCREEN W/REFLEX TITER Routine 11/10/2022 1:19 PM FOOTWEAR MACHINERY INSTRUCTOR Rheumatoid arthritis, involving unspecified site, unspecified whether rheumatoid factor present (HCC) Arthralgia, unspecified joint Therapeutic drug monitoring HISTONE ANTIBODY Routine 11/10/2022 1:19 PM FOOTWEAR MACHINERY INSTRUCTOR Rheumatoid arthritis, involving unspecified site, unspecified whether rheumatoid factor present (HCC) Arthralgia, unspecified joint Therapeutic drug monitoring SS-B (SJOGREN'S) ANTIBODY Routine 11/10/2022 1:19 PM FOOTWEAR MACHINERY INSTRUCTOR Rheumatoid arthritis, involving unspecified site, unspecified whether rheumatoid factor present (HCC) Arthralgia, unspecified joint Therapeutic drug monitoring SCLERODERMA 70 (SCL) ANTIBODY Routine 11/10/2022 1:19 PM FOOTWEAR MACHINERY INSTRUCTOR Rheumatoid arthritis, involving unspecified site, unspecified whether rheumatoid factor present (HCC) Arthralgia, unspecified joint Therapeutic drug monitoring DNA ANTIBODY DOUBLE STRANDED Routine 11/10/2022 1:19 PM FOOTWEAR MACHINERY INSTRUCTOR Rheumatoid arthritis, involving unspecified site, unspecified whether rheumatoid factor present (HCC) Arthralgia, unspecified joint Therapeutic drug monitoring ERYTHROCYTE SEDIMENTATION RATE Routine 11/10/2022 1:19 PM FOOTWEAR MACHINERY INSTRUCTOR Rheumatoid arthritis, involving unspecified site, unspecified whether rheumatoid factor present (HCC) Arthralgia, unspecified joint Therapeutic drug monitoring CBC W AUTO DIFFERENTIAL Routine 11/10/2022 1:19 PM FOOTWEAR MACHINERY INSTRUCTOR Rheumatoid arthritis, involving unspecified site, unspecified whether rheumatoid factor present (HCC) Arthralgia, unspecified joint Therapeutic drug monitoring COMPLEMENT C4 Routine 11/10/2022 1:19 PM FOOTWEAR MACHINERY INSTRUCTOR Rheumatoid arthritis, involving unspecified site, unspecified whether rheumatoid factor present (HCC) Arthralgia, unspecified joint Therapeutic drug monitoring COMPREHENSIVE METABOLIC PANEL Routine 11/10/2022 1:19 PM FOOTWEAR MACHINERY INSTRUCTOR Rheumatoid arthritis, involving unspecified site, unspecified whether rheumatoid factor present (HCC) Arthralgia, unspecified joint Therapeutic drug monitoring HEPATITIS B SURFACE ANTIGEN W RFLX CONFIRMATION Routine 11/10/2022 1:19 PM FOOTWEAR MACHINERY INSTRUCTOR Rheumatoid arthritis, involving unspecified site, unspecified whether rheumatoid factor present (HCC) Arthralgia, unspecified joint Therapeutic drug monitoring HEPATITIS C ANTIBODY Routine 11/10/2022 1:19 PM FOOTWEAR MACHINERY INSTRUCTOR Rheumatoid arthritis, involving unspecified site, unspecified whether rheumatoid factor present (HCC) Arthralgia, unspecified joint Therapeutic drug monitoring COMPLEMENT C3 Routine 11/10/2022 1:19 PM FOOTWEAR MACHINERY INSTRUCTOR Rheumatoid arthritis, involving unspecified site, unspecified whether rheumatoid factor present (HCC) Arthralgia, unspecified joint Therapeutic drug monitoring SS-A (SJOGREN'S) 52+60 ANTIBODIES Routine 11/10/2022 1:14 PM FOOTWEAR MACHINERY INSTRUCTOR Rheumatoid arthritis with negative rheumatoid factor, involving unspecified site (HCC) documented in this encounter Results * URINALYSIS MICROSCOPIC ONLY REFLEXED (11/22/2022 3:44 PM FOOTWEAR MACHINERY INSTRUCTOR) WBC UA None seen 0 - 5 /hpf [facility] BILL RBC UA None seen 0 - 2 /hpf [facility] BILL Epithelial Cells (non renal) 0-10 0 - 10 /hpf [facility] INSURANCE BILL [...] obt ained for this observation. Bacteria UA None seen None seen/Few [facility]URANCE BILL Yeast UA NOT AVAILABLE [facility] BILL Comment:Result cannot be obt ained for this observation. Trichomonas UA NOT AVAILABLE [facility] Comment:Result cannot be obt ained for this observation. Comment Urine NOT AVAILABLE [facility] BILL Comment:Result cannot be obt ained for this observation. 11/22/2022 3:44 PM FOOTWEAR MACHINERY INSTRUCTOR 11/22/2022 Narrative Resulting Agency Comment Lab Testing performed at: [facility] [address] ??On license of [facility] [id number] Catherine Hoffman MD LAB - URINALYS IS ORDERABLES [facility] INS[facility]ANCE BILL [address] [place] [address] * URINALYSIS REFLEX MICROSCOPIC REFLEX CULTURE (11/22/2022 3:44 PM FOOTWEAR MACHINERY INSTRUCTOR) Pathologist [facility] Specific [place] UA 1.007 1.005 - 1.030 [facility] INS[facility]ANCE BILL pH UA 6.5 5.0 - 7.5 [facility]ANCE BILL Color UA Yellow Yellow [facility]ANCE BILL Appearance Clear Clear [facility] BILL Leukocyte UA Negative Negative [facility] BILL Protein UA Negative Negative/Tra ce [facility]ANCE BILL Glucose UA Negative Negative [facility] BILL Ketone UA Negative Negative [facility] BILL Occult Blood Urine Negative Negative [facility] BILL Bilirubin UA Negative Negative [facility]ANCE BILL Urobilinogen 0.2 0.2 - 1.0 mg/dL [facility]ANCE BILL Nitrite UA Negative Negative [facility]ANCE BILL Microscopic Examination Urine [facility] BILL Comment:Microscopic follows if indicated. Microscopic Examination Urine See below: [facility]ANCE BILL Comment:Microscopic was christen cated and was performed. Urinalysis Reflex [facility] INSURANCE BILL Comment:This specimen will n ot reflex to a Urine Culture. Urine URINE SPECIMEN OBTAINED BY CLEAN CATCH PROCEDURE / Unknown 11/22/2022 3:44 PM FOOTWEAR MACHINERY INSTRUCTOR 11/22/2022 Narrative Resulting Agency Comment Lab Testing performed at: [facility] [address] [place] [address] ??On license of [facility] [id number] Catherine Hoffman MD LAB - URINALYS IS ORDERABLES Performing Organization Address [facility]/ZIP Co de Phone Number [facility] INSURANCE BILL [address] [place] [address] * SCOTT/HOTEL MAINTENANCE ENGINEER (ANIA) ANTIBODY IGG (11/10/2022 1:20 PM FOOTWEAR MACHINERY INSTRUCTOR) Pathologist [facility] Scott/HOTEL MAINTENANCE ENGINEER (ANIA) Antibody IgG 4 0 - 19 Units 11/12/2022 7:09 AM FOOTWEAR MACHINERY INSTRUCTOR [facility] [employer] ([facility]) Comment: INTERPRETIVE INFORMATION: Scott/HOTEL MAINTENANCE ENGINEER (ANIA) Antibody, IgG ??19 Units or Less ............. Negative ??20 to 39 Units ............... Weak Positive ??40 to 80 Units ............... Moderate Positive ??81 Units or greater .......... Strong Positive Scott/HOTEL MAINTENANCE ENGINEER antibodies are frequently seen in patients with mixed connective tissue disease (MCTD) and are also associated with other systemic autoimmune rheumatic diseases (SARDs) such as systemic lupus erythematosus (SLE), systemic sclerosis, and myositis. Antibodies targeting the Scott/HOTEL MAINTENANCE ENGINEER antigenic complex also recognize Scott antigens, therefore, the Scott antibody response must be considered when interpreting these results. Performed By: [facility] [address] [place] [address] Director Industrial: Eric Tay MD, PhD Blood BLOOD SPECIMEN / Unknown Lab Venipuncture / Unknown 11/10/2022 1:20 PM FOOTWEAR MACHINERY INSTRUCTOR 11/10/2022 1:56 PM FOOTWEAR MACHINERY INSTRUCTOR Catherine Hoffman MD LAB - CHEMISTR Y ORDERABLES [facility] [employer] [facility]) [address] [place] [address], [facility] * COMPLEMENT ACTIVITY TOTAL (CH50) (11/10/2022 1:20 PM FOOTWEAR MACHINERY INSTRUCTOR) [facility] Complement Activity Total CH50 63.1 38.7 - 89.9 U/mL 11/11/2022 10:55 PM FOOTWEAR MACHINERY INSTRUCTOR [facility] [employer] ([facility]) Comment: Normal activity in total complement functional [...] complement alternate pathway functional (AH50, test code 6107535) activity suggests defects in the alternate pathway. REFERENCE INTERVAL: Complement Activity Total, (CH50) ? 38.6 U/mL or less ..........Low ? 38.7-89.9 U/mL .............Normal ? 90.0 U/mL or greater .......High Performed By: [facility] [address] [place] [address] Director Industrial: Eric Tay MD, PhD Blood BLOOD SPECIMEN / Unknown Lab Venipuncture / Unknown 11/10/2022 1:20 PM FOOTWEAR MACHINERY INSTRUCTOR 11/10/2022 1:58 PM FOOTWEAR MACHINERY INSTRUCTOR Catherine Hoffman MD LAB - CHEMISTR Y ORDERABLES Performing Organization Address [facility] de Phone Number [facility]) [address] [place] [address] * (ABNORMAL) RANULFO BLOOD SINGLE PATTERN (11/10/2022 1:19 PM FOOTWEAR MACHINERY INSTRUCTOR) Pathologist [facility] RANULFO Pattern Speckled( A) 11/13/2022 3:19 PM FOOTWEAR MACHINERY INSTRUCTOR [facility] ([facility]) RANULFO Titer 1:320(A) 11/13/2022 3:19 PM FOOTWEAR MACHINERY INSTRUCTOR [facility] ([facility]) Comment: Performed By: [facility] [employer] [address] [place] [address] Director Industrial: Eric Tay MD, PhD Blood BLOOD SPECIMEN / Unknown Lab Venipuncture / Unknown 11/10/2022 1:19 PM FOOTWEAR MACHINERY INSTRUCTOR 11/10/2022 1:58 PM FOOTWEAR MACHINERY INSTRUCTOR Catherine Hoffman MD LAB - CHEMISTR Y ORDERABLES Performing Organization Address [facility] de Phone Number [facility]) [address] [place] [address] * (ABNORMAL) RANULFO HEP-2 IGG BY IFA (11/10/2022 1:19 PM FOOTWEAR MACHINERY INSTRUCTOR) RANULFO HEp-2 IgG Detected (H) <1:80 11/13/2022 3:19 PM [facility] ([facility]) RANULFO Interpretive Comment See Note 11/13/2022 3:19 PM [facility] ([facility]) Comment: Speckled Pattern Clinical associations: SLE, SSc, SjS, DM, PM, MCTD, UCTD. May also be found in healthy individuals Main autoantibodies: Anti-SSA-52 (Ro52), anti-SSA-60 (Ro60), anti-SS-B/LA, anti-Shawn-1 (anti-Scl-70), Scott, anti-U1-HOTEL MAINTENANCE ENGINEER, anti-U2-HOTEL MAINTENANCE ENGINEER, anti-Mi-2, anti-p155/140 (TIF1g), anti-Ku, anti-RNA polymerase, anti-DFS70/LEDGF-P75 [...] not necessarily rule out SARD. Performed By: [facility] [employer] [address] [place] [address] Director Industrial: Eric Tay MD, PhD Blood BLOOD SPECIMEN / Unknown Lab Venipuncture / Unknown 11/10/2022 1:19 PM FOOTWEAR MACHINERY INSTRUCTOR 11/10/2022 1:58 PM FOOTWEAR MACHINERY INSTRUCTOR Catherine Hoffman MD LAB - SEROLOGY ORDERABLES Performing Organization Address [facility] Co de Phone Number [facility] ([facility]) [address] * DNA ANTIBODY DS CRITHIDIA TITER (11/10/2022 1:19 PM FOOTWEAR MACHINERY INSTRUCTOR) [facility] dsDNA Antibody IgG <1:10 <1:10 2022 12:15 PM FOOTWEAR MACHINERY INSTRUCTOR [facility] ([facility]) Comment: INTERPRETIVE INFORMATION: Double-Stranded DNA (dsDNA) Antibody, [...] recommendations for testing may be found at [email or web address]/AutoimmuneDz/[email or web address]/[email or web address] ndex.[email or web address]. Performed By: [facility] [address] [place] [address] Director Industrial: Eric Tay MD, PhD Blood BLOOD SPECIMEN / Unknown Lab Venipuncture / Unknown 11/10/2022 1:19 PM FOOTWEAR MACHINERY INSTRUCTOR 11/10/2022 1:57 PM FOOTWEAR MACHINERY INSTRUCTOR Catherine Hoffman MD LAB - SEROLOGY ORDERABLES Performing Organization Address [facility]/ZIP Co de Phone Number [facility] [employer] ([facility]) [address] * (ABNORMAL) HISTONE ANTIBODY (11/10/2022 1:19 PM FOOTWEAR MACHINERY INSTRUCTOR) Pathologist [facility] Histone Antibody IgG 1.6(H) 0.0 - 0.9 Units 11/12/2022 6:38 AM FOOTWEAR MACHINERY INSTRUCTOR [facility] ([facility]) Comment: INTERPRETIVE INFORMATION: Histone Ab, IgG ??0.9 Units or less ............ Negative ??1.0 - 1.5 Units .............. Weak Positive ??1.6 - 2.5 Units .............. Moderate Positive ??2.6 Units or greater ......... Strong Positive Performed By: [facility] [employer] [address] [place] [address] Director Industrial: Eric Tay MD, PhD Blood BLOOD SPECIMEN / Unknown Lab Venipuncture / Unknown 11/10/2022 1:19 PM FOOTWEAR MACHINERY INSTRUCTOR 11/10/2022 1:58 PM FOOTWEAR MACHINERY INSTRUCTOR Catherine Hoffman MD LAB - CHEMISTR Y ORDERABLES Performing Organization Address City/[facility] Co de Phone Number [facility] ([facility]) [address] [place] [address] * COMPLEMENT C4 (11/10/2022 1:19 PM FOOTWEAR MACHINERY INSTRUCTOR) Pathologist [facility] Complement C4 24 15 - 57 mg/dL 11/10/2022 2:25 PM FOOTWEAR MACHINERY INSTRUCTOR [facility] Blood BLOOD SPECIMEN / Unknown Lab Venipuncture / Unknown 11/10/2022 1:19 PM FOOTWEAR MACHINERY INSTRUCTOR 11/10/2022 1:58 PM FOOTWEAR MACHINERY INSTRUCTOR Catherine Hoffman MD LAB - SEROLOGY ORDERABLES Performing Organization Address City/[facility]/ZIP Co de Phone Number [address] [phone], [facility] [phone] * COMPLEMENT C3 (11/10/2022 1:19 PM FOOTWEAR MACHINERY INSTRUCTOR) Pathologist [facility] Complement C3 147 82 - 193 mg/dL 11/10/2022 2:25 PM FOOTWEAR MACHINERY INSTRUCTOR [facility] Blood BLOOD SPECIMEN / Unknown Lab Venipuncture / Unknown 11/10/2022 1:19 PM FOOTWEAR MACHINERY INSTRUCTOR 11/10/2022 1:58 PM FOOTWEAR MACHINERY INSTRUCTOR Catherine Hoffman MD LAB - CHEMISTR Y ORDERABLES Performing Organization Address City/[facility]/ZIP Co de Phone Number [address] [address], [facility] [phone] * SS-B (SJOGREN'S) ANTIBODY (11/10/2022 1:19 PM FOOTWEAR MACHINERY INSTRUCTOR) Pathologist [facility] SS-B Antibody 0 0 - 40 AU/mL 11/12/2022 6:25 AM FOOTWEAR MACHINERY INSTRUCTOR [employer] ([facility]) Comment: INTERPRETIVE INFORMATION: SSB (La) (ANIA) Ab, [...] (PSS) also have this antibody. Performed By: [facility] [address] [place] [address] Director Industrial: Eric Tay MD, PhD Blood BLOOD SPECIMEN / Unknown Lab Venipuncture / Unknown 11/10/2022 1:19 PM FOOTWEAR MACHINERY INSTRUCTOR 11/10/2022 1:58 PM FOOTWEAR MACHINERY INSTRUCTOR Catherine Hoffman MD LAB - CHEMISTR Y ORDERABLES Performing Organization Address City/[facility]/ZIP Co de Phone Number [employer] [facility]) [address] * SCLERODERMA 70 (SCL) ANTIBODY (11/10/2022 1:19 PM FOOTWEAR MACHINERY INSTRUCTOR) SCL-70 Antibody 11 0 - 40 AU/mL 11/11/2022 11:57 PM FOOTWEAR MACHINERY INSTRUCTOR [employer] ([facility]) Comment: INTERPRETIVE INFORMATION: Scleroderma (Scl-70) (ANIA) Ab, IgG ??29 AU/mL or Less ............. Negative ??30 - 40 AU/mL ................ Equivocal ??41 AU/mL or Greater .......... Positive The presence of Scl-70 antibodies (also referred to as topoisomerase I, shawn-I or WILL) is considered diagnostic for systemic sclerosis (SSc). Scl-70 antibodies alone are detected in about 20 percent of SSc patients and are associated with the diffuse form of the disease, which may include specific organ involvement and poor prognosis. Scl-70 antibodies have also been reported in a varying percentage of patients with systemic lupus erythematosus (SLE). Scl-70 (shawn-1) is a DNA binding protein and anti-DNA/DNA complexes in the sera of SLE patients may bind to shawn-I, leading to a false-positive result. The presence of Scl-70 antibody in sera may also be due to contamination of recombinant Scl-70 with DNA derived from cellular material used in immunoassays. Strong clinical correlation is recommended if both Scl-70 and dsDNA antibodies are detected. Negative results do not necessarily rule out the presence of SSc. If clinical suspicion remains, consider further testing for centromere, RNA polymerase III and U3-HOTEL MAINTENANCE ENGINEER, PM/Scl, or Th/To antibodies. Performed By: [facility] [address] [place] [address] Director Industrial: Eric Tay MD, PhD Blood BLOOD SPECIMEN / Unknown Lab Venipuncture / Unknown 11/10/2022 1:19 PM FOOTWEAR MACHINERY INSTRUCTOR 11/10/2022 1:57 PM FOOTWEAR MACHINERY INSTRUCTOR Catherine Hoffman MD LAB - CHEMISTR Y ORDERABLES [employer] [facility]) [address] [place] [address], [facility] * SCOTT (SM) ANTIBODY ANIA (11/10/2022 1:19 PM FOOTWEAR MACHINERY INSTRUCTOR) Scott (ANIA) Antibody 0 0 - 40 AU/mL 11/12/2022 6:25 AM FOOTWEAR MACHINERY INSTRUCTOR [facility] ([facility]) Comment: INTERPRETIVE INFORMATION: Scott (ANIA) Antibody, IgG ??29 AU/mL or Less ............. Negative ??30 - 40 AU/mL ................ Equivocal ??41 AU/mL or Greater .......... Positive Scott antibody is highly specific (greater than 90 percent) for systemic lupus erythematosus (SLE) but only occurs in 30-35 percent of SLE cases. The presence of antibodies to Scott has variable associations with SLE clinical manifestations. Performed By: [facility] [address] [place] [address] Director Industrial: Eric Tay MD, PhD Blood BLOOD SPECIMEN / Unknown Lab Venipuncture / Unknown 11/10/2022 1:19 PM FOOTWEAR MACHINERY INSTRUCTOR 11/10/2022 1:58 PM FOOTWEAR MACHINERY INSTRUCTOR Catherine Hoffman MD LAB - CHEMISTR Y ORDERABLES Performing Organization Address City/State/[facility] Co de Phone Number [facility] [employer] [facility]) [address] [place] [address], [facility] * DNA ANTIBODY DOUBLE STRANDED (11/10/2022 1:19 PM FOOTWEAR MACHINERY INSTRUCTOR) dsDNA Antibody 22 0 - 24 IU 11/11/2022 11:34 PM FOOTWEAR MACHINERY INSTRUCTOR [facility] ([facility]) Comment: INTERPRETIVE INFORMATION: Double-Stranded DNA (dsDNA) Ab IgG RENE ??24 IU or less........Negative ??25-30 IU.............Borderline Positive ??30-60 IU.............Low Positive ??60-200 IU............Positive ??201 IU or greater....Strong Positive Positivity for anti-double stranded DNA (anti-dsDNA) IgG antibody is a diagnostic criterion of systemic lupus erythematosus (SLE). Specimens are initially screened by enzyme-linked immunosorbent assay (RENE). If ordered as reflex ([id number]), positive RENE results (>24 IU) will be reflexed to a highly specific IFA titer (Crithidia luciliae indirect fluorescent test [DEBBY]) for confirmation. Some patients with early or inactive SLE may be positive for anti-dsDNA IgG by RENE but negative by DEBBY. If the patient is negative by DEBBY but positive by RENE and clinical suspicion remains, consider antinuclear antibody (RANULFO) testing by IFA. Additional information and recommendations for testing may be found at [email or web address]/[email or web address]-[email or web address]. Performed By: [facility] [address] [place] [address] Director Industrial: Eric Tay MD, PhD Blood BLOOD SPECIMEN / Unknown Lab Venipuncture / Unknown 11/10/2022 1:19 PM FOOTWEAR MACHINERY INSTRUCTOR 11/10/2022 1:58 PM FOOTWEAR MACHINERY INSTRUCTOR Catherine Hoffman MD LAB - HEMATOLO GY ORDERABLES [facility] [employer] [facility]) [address] [place] [address] * (ABNORMAL) CHROMATIN ANTIBODY (11/10/2022 1:19 PM FOOTWEAR MACHINERY INSTRUCTOR) [facility] Chromatin Antibody 56(H) 0 - 19 Units 11/15/2022 5:24 PM FOOTWEAR MACHINERY INSTRUCTOR [facility] ([facility]) Comment: INTERPRETIVE INFORMATION: Chromatin Antibody, IgG ??19 Units or less: Negative ??20 - 60 Units: Moderate Positive ??61 Units or greater: Strong Positive The presence of anti-chromatin antibodies may be useful in the diagnosis of systemic lupus erythematosus (SLE) or drug-induced lupus (DIL) and have been reported to be predictive of lupus nephritis, especially when antibody levels are high. Performed By: [facility] [address] [place] [address] Director Industrial: Eric Tay MD, PhD Blood BLOOD SPECIMEN / Unknown Lab Venipuncture / Unknown 11/10/2022 1:19 PM FOOTWEAR MACHINERY INSTRUCTOR 11/10/2022 1:57 PM FOOTWEAR MACHINERY INSTRUCTOR Catherine Hoffman MD LAB - SEROLOGY ORDERABLES Performing Organization Address City/[facility]/ZIP Co de Phone Number [facility] [employer] ([facility]) [address] * (ABNORMAL) RANULFO BLOOD SCREEN W/REFLEX TITER (11/10/2022 1:19 PM FOOTWEAR MACHINERY INSTRUCTOR) Pathologist [facility] RANULFO IgG Detected (A) None Detected 11/11/2022 11:44 PM FOOTWEAR MACHINERY INSTRUCTOR [facility] ([facility]) Comment: Antibodies to Anti-Nuclear Antibodies (RANULFO) detected. [...] dsDNA, histones, SS-A (Ro), SS-B (La), Scott, Scott/HOTEL MAINTENANCE ENGINEER, Scl-70, Lucrecia-1, centromeric proteins, other antigens extracted from the HEp-2 cell nucleus. RANULFO RENE assays have been reported to have lower sensitivities than RANULFO IFA for systemic autoimmune rheumatic diseases (SARD). Negative results do not necessarily rule out SARD. Performed By: [facility] [employer] [address] [place] [address] Director Industrial: Eric Tay MD, PhD Blood BLOOD SPECIMEN / Unknown Lab Venipuncture / Unknown 11/10/2022 1:19 PM FOOTWEAR MACHINERY INSTRUCTOR 11/10/2022 1:58 PM FOOTWEAR MACHINERY INSTRUCTOR Catherine Hoffman MD LAB - CHEMISTR Y ORDERABLES [facility] [employer] ([facility]) [address] * HEPATITIS C ANTIBODY (11/10/2022 1:19 PM FOOTWEAR MACHINERY INSTRUCTOR) Pathologist [facility] Hepatitis C Antibody Non-react sergio Non-reac tive 11/10/2022 4:15 PM FOOTWEAR MACHINERY INSTRUCTOR [facility] Comment:Hepatitis C Antibody screen indicates no serologic evidence of past or current infection with Hepatitis C Virus. Patients with unexplained liver disease who are immunocompromised or suspected of having acute Hepatitis C infection may benefit from Nucleic Acid Test (HIPOLITO) for Hepatitis C Viral RNA to confirm Hepatitis C status. Blood BLOOD SPECIMEN / Unknown Lab Venipuncture / Unknown 11/10/2022 1:19 PM FOOTWEAR MACHINERY INSTRUCTOR 11/10/2022 1:56 PM FOOTWEAR MACHINERY INSTRUCTOR Catherine Hoffman MD LAB - CHEMISTR Y ORDERABLES [facility] [address] [address], [facility] [phone] * QUANTIFERON-TB GOLD PLUS 4-TUBE (11/10/2022 1:19 PM FOOTWEAR MACHINERY INSTRUCTOR) [facility] QuantiFERON NIL 0.02 IU/mL 12:41 AM FOOTWEAR MACHINERY INSTRUCTOR [employer] ([facility]) Comment: Performed By: [facility] [address] [place] [id number] Director Industrial: Eric Tay MD, PhD QuantiFERON TB Gold Plus Negative Negative 11/13/2022 12:41 AM FOOTWEAR MACHINERY INSTRUCTOR [employer] ([facility]) Comment: Interpretive Data: Quantiferon TB Gold Plus [...] Mycobacterium tuberculosis Infection --- [place], 2010 (http://www.cdc.gov/mmwr/preview/mmwrhtml/yc1856g7.htm), for more information concerning test performance in low-prevalence populations and use in occupational screening. QuantiFERON Plus TB1 Minus NIL 0.00 0.00 - 0.34 IU/mL 11/13/2022 12:41 AM FOOTWEAR MACHINERY INSTRUCTOR [facility] ([facility]) QuantiFERON Plus TB2 Minus NIL 0.00 0.00 - 0.34 IU/mL 11/13/2022 12:41 AM FOOTWEAR MACHINERY INSTRUCTOR [facility]) QuantiFERON Mitogen Minus NIL 3.34 IU/mL 11/13/2022 12:41 AM FOOTWEAR MACHINERY INSTRUCTOR [facility]) Blood BLOOD SPECIMEN / Unknown Lab Venipuncture / Unknown 11/10/2022 1:19 PM FOOTWEAR MACHINERY INSTRUCTOR 11/10/2022 1:54 PM FOOTWEAR MACHINERY INSTRUCTOR Catherine Hoffman MD LAB - CHEMISTR Y ORDERABLES [facility]) [address] * HEPATITIS B SURFACE ANTIGEN W RFLX CONFIRMATION (11/10/2022 1:19 PM FOOTWEAR MACHINERY INSTRUCTOR) Hepatitis B Virus Surface Antigen Non-reacti ve Non-reacti ve 11/10/2022 4:15 PM FOOTWEAR MACHINERY INSTRUCTOR [facility] Blood BLOOD SPECIMEN / Unknown Lab Venipuncture / Unknown 11/10/2022 1:19 PM FOOTWEAR MACHINERY INSTRUCTOR 11/10/2022 1:56 PM FOOTWEAR MACHINERY INSTRUCTOR Catherine Hoffman MD LAB - CHEMISTR Y ORDERABLES [facility] [address] [place] [address], [facility] [phone] * (ABNORMAL) ERYTHROCYTE SEDIMENTATION RATE (11/10/2022 1:19 PM FOOTWEAR MACHINERY INSTRUCTOR) Erythrocyte Sedimentation Rate Westergren >130(H) 0 - 30 MM/HR 11/10/2022 2:12 PM FOOTWEAR MACHINERY INSTRUCTOR [facility] Blood BLOOD SPECIMEN / Unknown Lab Venipuncture / Unknown 11/10/2022 1:19 PM FOOTWEAR MACHINERY INSTRUCTOR 11/10/2022 1:58 PM FOOTWEAR MACHINERY INSTRUCTOR Catherine Hoffman MD LAB - HEMATOLO GY ORDERABLES Performing Organization Address City/[facility]/ZIP Co de Phone Number [address] [address], [facility] [phone] * (ABNORMAL) C-REACTIVE PROTEIN (11/10/2022 1:19 PM FOOTWEAR MACHINERY INSTRUCTOR) C-Reactive Protein 10.2(H) <=0.5 mg/dL 11/10/2022 3:55 PM [facility] Blood BLOOD SPECIMEN / Unknown Lab Venipuncture / Unknown 11/10/2022 1:19 PM FOOTWEAR MACHINERY INSTRUCTOR 11/10/2022 1:56 PM FOOTWEAR MACHINERY INSTRUCTOR Catherine Hoffman MD LAB - CHEMISTR Y ORDERABLES Performing Organization Address [facility]/ZIP Co de Phone Number [address] [address], [facility] [phone] * (ABNORMAL) COMPREHENSIVE METABOLIC PANEL (11/10/2022 1:19 PM FOOTWEAR MACHINERY INSTRUCTOR) BUN 15 7 - 26 mg/dL 11/10/2022 2:25 PM [facility] Creatinine 0.55(L) 0.56 - 0.96 mg/dL 11/10/2022 2:25 PM [facility] Sodium 137 136 - 145 mmol/L 11/10/2022 2:25 PM [facility] Potassium 4.3 3.5 - 4.5 mmol/L 11/10/2022 2:25 PM [facility] Chloride 104 98 - 107 mmol/L 11/10/2022 2:25 PM [facility] CO2 21(L) 22 - 29 mmol/L 11/10/2022 2:25 PM [facility] Glucose 97 70 - 115 mg/dL 11/10/2022 2:25 PM [facility] Calcium 9.7 8.4 - 10.2 mg/dL 11/10/2022 2:25 PM [facility] Protein Total 8.2 6.0 - 8.3 g/dL 11/10/2022 2:25 PM [facility] Albumin 2.9(L) 3.4 - 5.0 g/dL 11/10/2022 2:25 PM [facility] Bilirubin Total 0.3 0.2 - 1.2 mg/dL 11/10/2022 2:25 PM [facility] Alkaline Phosphatase 61 40 - 150 U/L 11/10/2022 2:25 PM [facility] ALT <5(L) 5 - 55 U/L 11/10/2022 2:25 PM [facility] AST 15 5 - 34 U/L 11/10/2022 2:25 PM [facility] Anion Gap 16 8 - 18 11/10/2022 2:25 PM [facility] BUN/Creatinine Ratio 27(H) 7 - 23 11/10/2022 2:25 PM [facility] Osmolality Calculated 285 270 - 300 mOsm/kg 11/10/2022 2:25 PM [facility] Albumin/Globulin Ratio 0.5(L) 1.1 - 2.3 11/10/2022 2:25 PM [facility] eGFR by CKD-EPI >90 >=90 mL/min/1.7 3 m2 11/10/2022 2:25 PM [facility] Blood BLOOD SPECIMEN / Unknown Lab Venipuncture / Unknown 11/10/2022 1:19 PM FOOTWEAR MACHINERY INSTRUCTOR 11/10/2022 1:58 PM [facility] Catherine Hoffman MD LAB - CHEMISTR Y ORDERABLES Performing Organization Address City/State/[facility] Co de Phone Number [address] [address], [facility] [phone] * (ABNORMAL) CBC WITH DIFFERENTIAL (11/10/2022 1:19 PM FOOTWEAR MACHINERY INSTRUCTOR) WBC 7.4 3.5 - 10.5 10? 3 /uL 11/10/2022 2:04 PM [facility] RBC 4.59 3.80 - 5.20 10? 6 /uL 11/10/2022 2:04 PM [facility] Hemoglobin 11.8(L) 12.0 - 15.6 g/dL 11/10/2022 2:04 PM [facility] Hematocrit 38.6 35.0 - 45.0 % 11/10/2022 2:04 PM [facility] MCV 84.1 80.7 - 98.3 fL 11/10/2022 2:04 PM [facility] MCH 25.7(L) 26.7 - 34.0 pg 11/10/2022 2:04 PM [facility] MCHC 30.6(L) 30.8 - 35.9 g/dL 11/10/2022 2:04 PM [facility] RDW-SD 44.5 36.0 - 50.0 fL 11/10/2022 2:04 PM [facility] RDW-CV 14.6 11.2 - 14.8 % 11/10/2022 2:04 PM [facility] Platelet Count 665(H) 150 - 400 10? 3 /uL 11/10/2022 2:04 PM [facility] MPV 9.3(L) 9.4 - 12.9 fL 11/10/2022 2:04 PM [facility] nRBC Absolute 0.00 0 10? 3 /uL 11/10/2022 2:04 PM [facility] nRBC Auto 0.0 0 /100 WBC 11/10/2022 2:04 PM [facility] Neutrophils % 69.9 35.0 - 70.0 % 11/10/2022 2:04 PM [facility] Lymphocytes % 19.7(L) 20.0 - 43.0 % 11/10/2022 2:04 PM [facility] Monocytes % 7.3 5.0 - 13.0 % 11/10/2022 2:04 PM [facility] Eosinophils % 2.3 0.0 - 6.0 % 11/10/2022 2:04 PM [facility] Basophil % 0.4 0.0 - 2.0 % 11/10/2022 2:04 PM [facility] Neutrophils Absolute 5.19 1.60 - 7.00 10? 3 /uL 11/10/2022 2:04 PM [facility] Lymphocyte Absolute 1.46 1.10 - 3.90 10? 3 /uL 11/10/2022 2:04 PM FOOTWEAR MACHINERY INSTRUCTOR [facility] Monocytes Absolute 0.54 0.26 - 1.07 10? 3 /uL 11/10/2022 2:04 PM FOOTWEAR MACHINERY INSTRUCTOR [facility] Eosinophils Absolute 0.17 0.00 - 0.47 10? 3 /uL 11/10/2022 2:04 PM FOOTWEAR MACHINERY INSTRUCTOR [facility] Basophils Absolute 0.03 0.00 - 0.08 10? 3 /uL 11/10/2022 2:04 PM FOOTWEAR MACHINERY INSTRUCTOR [facility] Immature Granulocytes % 0.4 0.0 - 1.0 % 11/10/2022 2:04 PM FOOTWEAR MACHINERY INSTRUCTOR [facility] Immature Granulocytes Absolute 0.03 11/10/2022 2:04 PM [facility] Blood BLOOD SPECIMEN / Unknown Lab Venipuncture / Unknown 11/10/2022 1:19 PM FOOTWEAR MACHINERY INSTRUCTOR 11/10/2022 1:58 PM FOOTWEAR MACHINERY INSTRUCTOR Catherine Hoffman MD LAB - HEMATOLO GY ORDERABLES Performing Organization Address City/State/[facility] Co de Phone Number [facility] [address] [place] [address], [facility] [phone] * SS-A (SJOGREN'S) 52+60 ANTIBODIES (11/10/2022 1:14 PM FOOTWEAR MACHINERY INSTRUCTOR) Pathologist [facility] SS-A 52 Antibody 8 0 - 40 AU/mL 11/12/2022 6:25 AM [facility] Comment: INTERPRETIVE INFORMATION: SSA-52 (Ro52) (ANIA) Antibody, [...] 0 - 40 AU/mL 11/12/2022 6:25 AM FOOTWEAR MACHINERY INSTRUCTOR [facility] ([facility]) Comment: REFERENCE INTERVAL: SSA-60 (Ro60) (ANIA) Antibody, IgG ??29 AU/mL or Less ............. Negative ??30 - 40 AU/mL ................ Equivocal ??41 AU/mL or Greater .......... Positive Performed By: [facility] [address] [place] [address] Director Industrial: Eric Tay MD, PhD Blood BLOOD SPECIMEN / Unknown Lab Venipuncture / Unknown 11/10/2022 1:14 PM FOOTWEAR MACHINERY INSTRUCTOR 11/10/2022 1:58 PM FOOTWEAR MACHINERY INSTRUCTOR Catherine Hoffman MD LAB - CHEMISTR Y ORDERABLES [facility] ([facility]) [address] documented in this encounter Visit Diagnoses Diagnosis Rheumatoid arthritis with negative rheumatoid factor, involving unspecified site (HCC)- Primary Rheumatoid arthritis, involving unspecified site, unspecified whether rheumatoid factor present (HCC) Arthralgia, unspecified joint Therapeutic drug monitoring Encounter for therapeutic drug monitoring documented in this encounter
--- OUTSIDE RECORDS SUMMARY | 2024-10-16 22:30 | XMS_ITS | Encounter Summary ---
Author Organization [facility] Address [address] [place] [address] Care Team Providers Care Showplace Manager Name Role Phone Sultana Sullivan MD Primary Care Provider [phone] Encounter Details Date Type Department Care Team (Late Contact Info) Description 02/17/2024 Orders Only [facility] - Rheumatology [address] [place] [phone] Saleem Weber MD [address] [place] [address] MD [place] [phone] Rheumatoid arthritis, involving unspecified site, unspecified whether rheumatoid factor present (HCC); Therapeutic drug monitoring; Long-term use 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; intermediate designer 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; Arthralgia, unspecified [...] Upcoming Encounters Date Type Department Care Team ([facility] Contact Info) Description 10/31/2024 10:00 AM DIGITAL CARTOGRAPHER Office Visit [facility] - Rheumatology [address] [place] [phone] SameAntonio flores MD [address] [facility] [place] [address] 02/01/2025 9:00 AM CDT Appointment [facility] [address] [place] [address] Sultana Sullivan MD [address] [place] [phone] documented as of this encounter Visit Diagnoses Diagnosis Rheumatoid arthritis, involving unspecified site, unspecified whether rheumatoid factor present ([facility]) Therapeutic drug monitoring Encounter for therapeutic drug monitoring Long-term use 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 intermediate designer 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 Arthralgia, unspecified joint High risk medications (not anticoagulants) long-term use Encounter for long-term (current) use of other medications documented in this encounter Care Teams Showplace Manager Relationship Specialty Start Date End Date Sultana Sullivan MD [address] [place] [phone] PCP - General 11/24/22 documented as of this encounter
--- OUTSIDE RECORDS SUMMARY | 2024-10-16 22:30 | XMS_ITS | Encounter Summary ---
Author Organization [facility] Address [address] [facility] [place] [address] Care Team Providers Care Marshmallow Machine Worker Name Role Phone Sultana Sullivan MD Primary Care Provider [phone] Encounter Details Date Type Department Care Team (Late st Contact Info) Description 02/07/2024 12:23 PM CDT - 02/07/2024 11:59 PM CDT Hospital Encounter [facility] [address] [facility] [place] [address] Pepe Witt MD [address] [facility] [place] [address] Discharge Disposition: Home or Self Care Social [...] st Contact Info) Description 10/31/2024 10:00 AM CUTTER OPERATOR Office Visit [facility] - Rheumatology [address] [facility] [place] [phone] Antonio Bowles MD [facility] [facility] [place] [phone] 02/01/2025 9:00 AM CDT Appointment [facility] [address] [place] [address] Sultana Sullivan MD [address] [place] [address] documented as of this encounter Procedures Procedure Name Priority Date/Time Associated Diagnosis Comments XR HAND RIGHT 3VW OR MORE Routine 02/07/2024 12:35 PM CDT Rheumatoid arthritis involving multiple sites with positive rheumatoid factor (HCC) documented in this encounter Results * XR HAND RIGHT 3VW OR MORE [...] (HCC) documented in this encounter Care Teams Marshmallow Machine Worker Relationship Specialty Start Date End Date Sutlana Sullivan MD [address] [place] [phone] PCP - General 11/24/22 documented as of this encounter
--- OUTSIDE RECORDS SUMMARY | 2024-10-16 22:30 | XMS_ITS | Encounter Summary ---
Author Organization [facility] Address [address] [facility] [place] [address] Care Team Providers Care Fingernail Technician Name Role Phone Sultana Sullivan MD Primary Care Provider [phone] Encounter Details Date Type Department Care Team (Late Contact Info) Description 07/22/2023 Orders Only [facility] [address] [place] [phone] Saleem Weber MD [address] [place] [address] MD [place] [phone] Rheumatoid arthritis, involving unspecified site, unspecified whether rheumatoid factor present (HCC); Therapeutic drug monitoring; Long-term use 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; endbander 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 Social History [...] (Late Contact Info) Description 10/31/2024 10:00 AM TRAPPER BIRD Office Visit [facility] - [facility]umatology [address] [place] [phone] Antonio Bowles MD [address] [place] [address] [place] [address] 02/01/2025 9:00 AM CDT Appointment [facility] [address] [place] [address] Sultana Sullivan MD [address] [place] [phone] documented as of this encounter Visit Diagnoses Diagnosis Rheumatoid arthritis, involving unspecified site, unspecified whether rheumatoid factor present (HCC) Therapeutic drug monitoring Encounter for therapeutic drug monitoring Long-term use 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 endbander 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 documented in this encounter Care Teams Fingernail Technician Relationship Specialty Start Date End Date Sultana Sullivan MD [address] [place] [phone] PCP - General 11/24/22 documented as of this encounter
--- OUTSIDE RECORDS SUMMARY | 2024-10-16 22:30 | XMS_ITS | Encounter Summary ---
Author Organization [facility] Address [address] [place] [place] [address] Care Team Providers Care Automobile Relocation Engineer Name Role Phone Sultana Sullivan MD Primary Care Provider [phone] Encounter Details Date Type Department Care Team (Late Contact Info) Description 08/12/2023 Orders Only [facility] [address] [place] [phone] Saleem Weber MD [address] [place] [address] MD [place] [phone] Rheumatoid arthritis, involving unspecified site, unspecified whether [...] (Late Contact Info) Description 10/31/2024 10:00 AM WAREHOUSE INVENTORY CLERK Office Visit [facility]umatology [address] [place] [phone] Antonio Bowles MD [address] [place] [address] [place] [phone] 02/01/2025 9:00 AM CDT Appointment [facility] [address] [place] [address] Sultana Sullivan MD [facility] [place] [phone] documented as of this encounter Visit Diagnoses Diagnosis Rheumatoid arthritis, involving unspecified site, unspecified whether rheumatoid factor present ([facility]) Therapeutic drug monitoring Encounter for therapeutic drug monitoring documented in this encounter Care Teams Automobile Relocation Engineer Relationship Specialty Start Date End Date Sultana Sullivan MD [address] [place] [phone] PCP - General 11/24/22 documented as of this encounter
--- OUTSIDE RECORDS SUMMARY | 2024-10-16 22:30 | XMS_ITS | Encounter Summary ---
Author Organization [facility] Address [address] [facility] [place] [address] Care Team Providers Care Director Of Email Marketing Name Role Phone Sultana Sullivan MD Primary Care Provider [phone] Reason for Visit * Reason Onset Date Comments MEDICATION REFILL 04/04/2023 Encounter Details Date Type Department Care Team (Late st Contact Info) Description 04/04/2023 Refill [facility] [place] [phone] Saleem Weber MD [address] [place] [phone] MEDICATION REFILL Social History Tobacco Use Types [...] encounter Miscellaneous Notes * Telephone Encounter - [place] - 04/04/2023 12:21 PM CDT error documented in this encounter Plan of Treatment Upcoming Encounters Date Type Department Care Team (Late st Contact Info) Description 10/31/2024 10:00 AM BOILERMAKER PIPE FITTER Office Visit [facility] - Rhe[facility]ology [address] [facility] [place] [address] Antonio Bowles MD [address] [place] [address] [place] [phone] 02/01/2025 9:00 AM CDT Appointment [facility] [address] [place] [address] Sultana Sullivan MD [facility] [place] [phone] documented as of this encounter Visit Diagnoses Not on filedocumented in this encounter Care Teams Director Of Email Marketing Relationship Specialty Start Date End Date Sultana Sullivan MD [address] [place] [phone] PCP - General 11/24/22 documented as of this encounter
--- OUTSIDE RECORDS SUMMARY | 2024-10-16 22:30 | XMS_ITS | Encounter Summary ---
Author Organization [facility] Address [address] [place] [address] Care Team Providers Care Mixer Wet Pour Name Role Phone Sultana Sullivan MD Primary Care Provider Encounter Details Date Type Department Care Team (Late Contact Info) Description 12/23/2023 Orders Only [facility] Rhe[facility]ology [address] [place] [phone] Saleem Weber MD [address] [place] [address] MD [place] [phone] Rheumatoid arthritis, involving unspecified site, unspecified whether rheumatoid factor present (HCC); Therapeutic drug monitoring; Long-term use 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; extermination inspector 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; Arthralgia, unspecified [...] (Late Contact Info) Description 10/31/2024 10:00 AM SOUND ENGINEER Office Visit [facility] - Rheumatology [address] [place] [phone] Antonio Bowles, MD [address] [facility] [place] [address] 02/01/2025 9:00 AM CDT Appointment [facility] [address] [place] [address] Sultana Sullivan MD [address] [place] [phone] documented as of this encounter Visit Diagnoses Diagnosis Rheumatoid arthritis, involving unspecified site, unspecified whether rheumatoid factor present ([facility]) Therapeutic drug monitoring Encounter for therapeutic drug monitoring Long-term use 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 extermination inspector 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 Arthralgia, unspecified joint High risk medications (not anticoagulants) long-term use Encounter for long-term (current) use of other medications documented in this encounter Care Teams Mixer Wet Pour Relationship Specialty Start Date End Date Sultana Sullivan MD [address] [place] [phone] PCP - General 11/24/22 documented as of this encounter
--- OUTSIDE RECORDS SUMMARY | 2024-10-16 22:30 | XMS_ITS | Encounter Summary ---
Author Organization [facility] Address [address] [facility] [place] [address] Care Team Providers Care Buttermaker Name Role Phone Sultana Sullivan MD Primary Care Provider [phone] Reason for Visit * Oncology Prior Authorization (Routine) - Closed Specialty Diagnoses / Procedures Referred By Contac t Referred To Contact Diagnoses Rheumatoid arthritis involving multiple sites with positive rheumatoid factor (HCC) Procedures HI INJ RITUXIMAB 10 MG Catherine Hoffman MD [address] [place] [address] [facility] [address] [place] [phone] Referral ID Status Reason Start Date Expiration Date Visits Re quested Visits Authorized [id number] Closed 03/24/2023 10/09/2024 4 8 Encounter Details Date Type Department Care Team (Latest Contact Info) Description 07/21/2023 8:50 AM CDT - 07/21/2023 11:59 PM CDT Hospital Encounter [facility] [address] [place] [phone] Catherine Hoffman MD [address] [place] [address] Discharge Disposition: Home or Self [...] Sign Reading Time Taken Comments Blood Pressure 128/75 07/21/2023 9:14 AM CDT Pulse 72 07/21/2023 9:14 AM CDT Temperature 36.6 ??C (97.9 ??F) 07/21/2023 9:14 AM CD T Respiratory Rate 18 07/21/2023 9:14 AM CDT Oxygen Saturation 100% 07/21/2023 9:14 AM CDT Inhaled Oxygen Concentration - - Weight 47.7 kg (105 lb 3.2 oz) 07/21/2023 9:14 A M CDT Height - - Body Mass Index 20.55 07/13/2023 11:10 AM CDT documented in this encounter Medications [...] 01/18/2024 vitamin D, ergocalciferol, (Drisdol) 1.25 MG (39034 UT) capsule Take 1 (one) capsule by mouth every 7 days 06/02/2022 01/18/2024 documented as of this encounter Plan of Treatment Upcoming Encounters Date Type Department Care Team (Late st Contact Info) Description 10/31/2024 10:00 AM REELING MACHINE SETUP OPERATOR Office Visit [facility]ology [address] [place] [address], [place] [address] Antonio Bowles MD [address] [place] [address] [place] [address] 02/01/2025 9:00 AM CDT Appointment [facility] [address] [place] [phone] Sultana Sullivan MD [address] [place] [phone] documented as of this encounter Procedures Procedure Name Priority Date/Time Associated Diagnosis Comments URINALYSIS W/MICROSCOPIC REFLEX TO CULTURE Routine 07/21/2023 9:55 AM CDT Rheumatoid arthritis, involving unspecified site, unspecified whether rheumatoid factor present (HCC) Therapeutic drug monitoring CULTURE URINE Routine 07/21/2023 9:55 AM CDT Rheumatoid arthritis, involving unspecified site, unspecified whether rheumatoid factor present (HCC) Therapeutic drug monitoring C-REACTIVE PROTEIN Routine 07/21/2023 9: 29 AM CDT Rheumatoid arthritis, involving unspecified site, unspecified whether rheumatoid factor present (HCC) Therapeutic drug monitoring Long-term use 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 assisted 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 Arthralgia, unspecified joint High risk medications (not anticoagulants) long-term use ERYTHROCYTE SEDIMENTATION RATE Routine 07/21/2023 9:29 AM CDT Rheumatoid arthritis, involving unspecified site, unspecified whether rheumatoid factor present (HCC) Therapeutic drug monitoring Long-term use 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 sea shell gatherer 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 Arthralgia, unspecified joint High risk medications (not anticoagulants) long-term use CBC W AUTO DIFFERENTIAL Routine 07/21/2023 9:29 AM CDT Rheumatoid arthritis, involving unspecified site, unspecified whether rheumatoid factor present (HCC) Therapeutic drug monitoring Long-term use 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 sea shell gatherer 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 Arthralgia, unspecified joint High risk medications (not anticoagulants) long-term use COMPREHENSIVE METABOLIC PANEL Routine 07/21/2023 9:29 AM CDT Rheumatoid arthritis, involving unspecified site, unspecified whether rheumatoid factor present (HCC) Therapeutic drug monitoring Long-term use 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 assisted 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 Arthralgia, unspecified joint High risk medications (not anticoagulants) long-term use documented in this encounter Results * CULTURE URINE (07/21/2023 9:55 AM CDT) Culture Urine No growth (<100 CFU/mL) SHERRI 07/22/2023 2:45 PM CDT [facility] Urine URINE SPECIMEN OBTAINED BY CLEAN CATCH PROCEDURE / Unknown Collection / Unknown 07/21/2023 9:55 AM CDT 07/21/2023 10:17 AM CDT Catherine Hoffman MD LAB - MICROBIO LOGY ORDERABLES [facility]CRO[facility] [address] [place] [address], [facility] [phone] * (ABNORMAL) URINALYSIS W/MICROSCOPIC REFLEX TO CULTURE (07/21/2023 9:55 AM CDT) Color UA Yellow Straw, Yellow 07/21/2023 10:17 AM [facility] Clarity UA Slt Cloudy(A) Clear 07/21/2023 10:17 AM [facility] Specific [place] UA 1.013 1.005 - 1.030 07/21/2023 10:17 AM [facility] pH UA 5.0 5.0 - 8.0 pH 07/21/2023 10:17 AM [facility] Protein UA Negative Negative 07/21/2023 10:17 AM [facility] Glucose UA Negative Negative 07/21/2023 10:17 AM [facility] Ketone UA Negative Negative 07/21/2023 10:17 AM [facility] Bilirubin UA Negative Negative 07/21/2023 10:17 AM [facility] Blood UA Negative Negative 07/21/2023 10:17 AM [facility] Nitrite UA Negative Negative 07/21/2023 10:17 AM [facility] Leukocyte Esterase 1+(A) Negative 07/21/2023 10:17 AM [facility] Urobilinogen UA Negative Negative mg/dL 07/21/2023 10:17 AM CDT [facility] RBC UA 3-5 None Seen, 0-2, 3-5 /HPF 07/21/2023 10:17 AM CDT [facility] WBC UA 6-10(A) None Seen, 0-5 /HPF 07/21/2023 10:17 AM CDT [facility] Squamous Epithelial Cells UA 3-5 None Seen, 0-2, 3-5 /HPF 07/21/2023 10:17 AM CDT [facility] Mucus UA 1+ /LPF 07/21/2023 10:17 AM CDT [facility] Urine URINE SPECIMEN OBTAINED BY CLEAN CATCH PROCEDURE / Unknown Collection / Unknown 07/21/2023 9:55 AM CDT 07/21/2023 9:59 AM CDT Narrative [facility] - 07/21/2023 10:17 AM CDT Lab Status, Culture Reflex Indicated. Catherine Hoffman MD LAB - URINALYS IS ORDERABLES [address] [address], [facility] [phone] * (ABNORMAL) ERYTHROCYTE SEDIMENTATION RATE (07/21/2023 9:29 AM CDT) Pathologist [facility] Erythrocyte Sedimentation Rate Westergren >130(H) 0 - 30 MM/HR 07/21/2023 10:23 AM CDT [facility] Blood BLOOD SPECIMEN / Unknown Venipuncture / Unknown 07/21/2023 9:29 AM CDT 07/21/2023 9:44 AM CDT Catherine Hoffman MD LAB - HEMATOLO GY ORDERABLES Performing Organization Address [facility]/State/ZIP Co de Phone Number [address] [address], [facility] [phone] * (ABNORMAL) C-REACTIVE PROTEIN (07/21/2023 9:29 AM CDT) Pathologist [facility] C-Reactive Protein 4.2(H) <=0.5 mg/dL 07/21/2023 10:03 AM [facility] Blood BLOOD SPECIMEN / Unknown Venipuncture / Unknown 07/21/2023 9:29 AM CDT 07/21/2023 9:38 AM CDT Catherine Hoffman MD LAB - CHEMISTR Y ORDERABLES Performing Organization Address [facility] Co de Phone Number [facility] [address] [place] [address] [phone] * (ABNORMAL) COMPREHENSIVE METABOLIC PANEL (07/21/2023 9:29 AM T) BUN 16 7 - 26 mg/dL 07/21/2023 10:13 AM [facility] Creatinine 0.55(L) 0.56 - 0.96 mg/dL 07/21/2023 10:13 AM [facility] Sodium 138 136 - 145 mmol/L 07/21/2023 10:13 AM [facility] Potassium 4.5 3.5 - 4.5 mmol/L 07/21/2023 10:13 AM [facility] Chloride 109(H) 98 - 107 mmol/L 07/21/2023 10:13 AM [facility] CO2 19(L) 22 - 29 mmol/L 07/21/2023 10:13 AM [facility] Glucose 89 70 - 115 mg/dL 07/21/2023 10:13 AM [facility] Calcium 8.5 8.4 - 10.2 mg/dL 07/21/2023 10:13 AM [facility] Protein Total 7.3 6.0 - 8.3 g/dL 07/21/2023 10:13 AM [facility] Albumin 2.8(L) 3.4 - 5.0 g/dL 07/21/2023 10:13 AM [facility] Bilirubin Total 0.2 0.2 - 1.2 mg/dL 07/21/2023 10:13 AM [facility] Alkaline Phosphatase 79 40 - 150 U/L 07/21/2023 10:13 AM [facility] ALT 8 5 - 55 U/L 07/21/2023 10:13 AM [facility] AST 16 5 - 34 U/L 07/21/2023 10:13 AM [facility] Anion Gap 10 6 - 16 07/21/2023 10:13 AM [facility] BUN/Creatinine Ratio 29(H) 7 - 23 07/21/2023 10:13 AM [facility] Osmolality Calculated 287 275 - 295 mOsm/kg 07/21/2023 10:13 AM [facility] Albumin/Globulin Ratio 0.6(L) 1.1 - 2.3 07/21/2023 10:13 AM [facility] eGFR by CKD-EPI >90 >=90 mL/min/1.7 3 m2 07/21/2023 10:13 AM [facility] Blood BLOOD SPECIMEN / Unknown Venipuncture / Unknown 07/21/2023 9:29 AM CDT 07/21/2023 9:44 AM CDT Catherine Hoffman MD LAB - CHEMISTR Y ORDERABLES [address] [address], [facility] [phone] * (ABNORMAL) CBC WITH DIFFERENTIAL (07/21/2023 9:29 AM CDT) WBC 7.1 3.5 - 10.5 10? 3 /uL 07/21/2023 9:58 AM [facility] RBC 4.96 3.80 - 5.20 10? 6 /uL 07/21/2023 9:58 AM [facility] Hemoglobin 11.9(L) 12.0 - 15.6 g/dL 07/21/2023 9:58 AM [facility] Hematocrit 38.4 35.0 - 45.0 % 07/21/2023 9:58 AM [facility] MCV 77.4(L) 80.7 - 98.3 fL 07/21/2023 9:58 AM [facility] MCH 24.0(L) 26.7 - 34.0 pg 07/21/2023 9:58 AM [facility] MCHC 31.0 30.8 - 35.9 g/dL 07/21/2023 9:58 AM [facility] RDW-SD 48.3 36.0 - 50.0 fL 07/21/2023 9:58 AM [facility] RDW-CV 17.4(H) 11.2 - 14.8 % 07/21/2023 9:58 AM [facility] Platelet Count 587(H) 150 - 400 10? 3 /uL 07/21/2023 9:58 AM [facility] MPV 9.5 9.4 - 12.9 fL 07/21/2023 9:58 AM [facility] nRBC Absolute 0.00 0 10? 3 /uL 07/21/2023 9:58 AM [facility] nRBC Auto 0.0 0 /100 WBC 07/21/2023 9:58 AM [facility] Neutrophils % 71.0(H) 35.0 - 70.0 % 07/21/2023 9:58 AM [facility] Lymphocytes % 12.5(L) 20.0 - 43.0 % 07/21/2023 9:58 AM [facility] Monocytes % 8.9 5.0 - 13.0 % 07/21/2023 9:58 AM [facility] Eosinophils % 6.7(H) 0.0 - 6.0 % 07/21/2023 9:58 AM [facility] Basophil % 0.6 0.0 - 2.0 % 07/21/2023 9:58 AM [facility] Neutrophils Absolute 5.01 1.60 - 7.00 10? 3 /uL 07/21/2023 9:58 AM [facility] Lymphocyte Absolute 0.88(L) 1.10 - 3.90 10? 3 /uL 07/21/2023 9:58 AM [facility] Monocytes Absolute 0.63 0.26 - 1.07 10? 3 /uL 07/21/2023 9:58 AM [facility] Eosinophils Absolute 0.47 0.00 - 0.47 10? 3 /uL 07/21/2023 9:58 AM CDT [facility] Basophils Absolute 0.04 0.00 - 0.08 10? 3 /uL 07/21/2023 9:58 AM CDT [facility] Immature Granulocytes % 0.3 0.0 - 1.0 % 07/21/2023 9:58 AM CDT [facility] Immature Granulocytes Absolute 0.02 07/21/2023 9:58 AM CDT [facility] Blood BLOOD SPECIMEN / Unknown Venipuncture / Unknown 07/21/2023 9:29 AM CDT 07/21/2023 9:44 AM CDT Catherine Hoffman MD LAB - HEMATOLO GY ORDERABLES [facility] [address] [place] [address], [facility] [phone] documented in this encounter Visit Diagnoses Diagnosis Rheumatoid arthritis involving multiple sites with positive rheumatoid factor (HCC)- Primary Rheumatoid arthritis, involving unspecified site, unspecified whether rheumatoid factor present (HCC) Therapeutic drug monitoring Encounter for therapeutic drug monitoring Long-term use 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 sea shell gatherer 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 Arthralgia, unspecified joint High risk medications (not anticoagulants) long-term use Encounter for long-term (current) use of other medications documented in this encounter Administered Medications Inactive Administered Medications - up to 3 most recent administrations Medication Order MAR Action Action Date Dose Rate Site acetaminophen (Tylenol) tablet 650 mg 650 mg, Oral, ONCE, 1 dose, On Fern 07/21/23 at 0915, Maximum allowable Acetaminophen amount = [...] be documented in the MAR. $ Given 07/21/2023 9:37 AM CDT 650 mg methylPREDNISolone sod succ (SOLU-Medrol) injection 125 mg 125 mg, Intravenous, ONCE, 1 dose, On Fern 07/21/23 at 0915 $ Given 07/21/2023 9:37 AM CDT 125 mg riTUXimab (Rituxan) 1,000 mg in 0.9% NaCl IV 500 mL infusion 1,000 mg, Intravenous, CONTINUOUS, Starting on Fern 07/21/23 at 1000, Until Fern 07/21/23 at 1559, Premedications should be administered at least 30 [...] 50% reduction in rate. $ New Bag/Syringe 07/21/2023 10:33 AM CDT 1,000 mg 50 mL/hr documented in this encounter Care Teams Buttermaker Relationship Specialty Start Date End Date Sultana Sullivan MD [address] [place] [phone] PCP - General 11/24/22 documented as of this encounter
--- OUTSIDE RECORDS SUMMARY | 2024-10-16 22:30 | XMS_ITS | Encounter Summary ---
Author Organization [facility] Address [address] [facility] [place] [address] Care Team Providers Care Atm Technician Name Role Phone Sultana Sullivan MD Primary Care Provider [phone] Encounter Details Date Type Department Care Team (Late Contact Info) Description 01/06/2024 Orders Only [facility] [address] [place] [phone] Saleem Weber MD [address] [place] [address] MD [place] [phone] Rheumatoid arthritis, involving unspecified site, unspecified whether rheumatoid factor present (HCC); Therapeutic drug monitoring; Long-term use 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; supervisor intermediates 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 Social History [...] (Late Contact Info) Description 10/31/2024 10:00 AM ELECTRONIC WARFARE OPERATOR Office Visit [facility]ology [address] [place] [phone] Antonio Bowles MD [address] [place] [address] [place] [address] 02/01/2025 9:00 AM CDT Appointment [facility] [address] [place] [address] Sultana Sullivan MD [address] [place] [phone] documented as of this encounter Visit Diagnoses Diagnosis Rheumatoid arthritis, involving unspecified site, unspecified whether rheumatoid factor present (HCC) Therapeutic drug monitoring Encounter for therapeutic drug monitoring Long-term use 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 supervisor intermediates 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 documented in this encounter Care Teams Atm Technician Relationship Specialty Start Date End Date Sultana Sullivan MD [address] [place] [phone] PCP - General 11/24/22 documented as of this encounter
--- OUTSIDE RECORDS SUMMARY | 2024-10-16 22:30 | XMS_ITS | Encounter Summary ---
Author Organization [facility] Address [address] [facility] [place] [address] Care Team Providers Care Security System Technician Name Role Phone Sultana Sullivan MD Primary Care Provider [phone] Encounter Details Date Type Department Care Team (Late Contact Info) Description 12/31/2022 Orders Only [facility] [address] [place] [phone] Saleem Weber MD [address] [place] [address] MD [place] [phone] Rheumatoid arthritis, involving unspecified site, unspecified whether [...] (Late Contact Info) Description 10/31/2024 10:00 AM POLICE LIEUTENANT PRECINCT Office Visit [facility] [address] [place] [phone] Antonio Bowles MD [address] [place] [address] [place] [phone] 02/01/2025 9:00 AM CDT Appointment [facility] [address] [place] [phone] Sultana Sullivan MD [facility] [place] [address] documented as of this encounter Visit Diagnoses Diagnosis Rheumatoid arthritis, involving unspecified site, unspecified whether rheumatoid factor present ([facility]) Therapeutic drug monitoring Encounter for therapeutic drug monitoring documented in this encounter Care Teams Security System Technician Relationship Specialty Start Date End Date Sultana Sullivan MD [address] [place] [phone] PCP - General 11/24/22 documented as of this encounter
--- OUTSIDE RECORDS SUMMARY | 2024-10-16 22:30 | XMS_ITS | Encounter Summary ---
Author Organization [facility] Address [address] [facility] [place] [address] Care Team Providers Care Customer Greeter Name Role Phone Sultana Sullivan MD Primary Care Provider [phone] Encounter Details Date Type Department Care Team (Latest Contact Info) Description 02/09/2023 Travel Social History Tobacco Use Types Packs/Day [...] st Contact Info) Description 10/31/2024 10:00 AM MAINTENANCE ENGINEER Office Visit [facility] Rheumatology [address] [place] [address], [place] [phone] Antonio Bowles MD [address] [place] [address] [place] [phone] 02/01/2025 9:00 AM CDT Appointment [facility] [address] [place] [phone] Sultana Sullivan MD [address] [place] [phone] documented as of this encounter Visit Diagnoses Not on filedocumented in this encounter Care Teams Customer Greeter Relationship Specialty Start Date End Date Sultana Sullivan MD [id number] [place] [phone] PCP - General 11/24/22 documented as of this encounter
--- OUTSIDE RECORDS SUMMARY | 2024-10-16 22:30 | XMS_ITS | Encounter Summary ---
Author Organization [facility] Address [address] [facility] [place] [address] Care Team Providers Care Waste And Batting Waste Chopper Name Role Phone Unavailable Primary Care Provider Unavailabl e Reason for Visit * Reason Onset Date Comments Results 11/23/2022 Encounter Details Date Type Department Care Team (Late st Contact Info) Description 11/23/2022 Telephone [facility] [address] [facility], [facility] [place] [phone] Saleem Weber MD [facility] [phone] Results Social History Tobacco Use Types [...] Coronavirus/COVID-19? No / Unsure 11/10/2022 12:27 PM MINING PROFESSIONALS documented as of this encounter Miscellaneous Notes * Telephone Encounter - Saleem Weber MD - 11/23/2022 12:00 PM CST Called the patient to inform of the labs. Asked her to increase SSZ to 1500 BD and start HCQ 200 mg daily (she is 51 kg and preferred once daily medication). Ophthalmology referral placed and discussed she needs eye testing every year or every other year depending on their recommendations. Risks and benefits discussed. [employer] documented in this encounter Plan of Treatment Upcoming Encounters Date Type Department Care Team (Late st Contact Info) Description 10/31/2024 10:00 AM MINING PROFESSIONALS Office Visit [facility] - Rheumatology [address] [place] [address], [place] [phone] Antonio Bowles MD [address] [place] [address] [place] [address] 02/01/2025 9:00 AM CDT Appointment [facility] [address] [place] [address] Sultana Sullivan MD [address] [place] [phone] documented as of this encounter Visit Diagnoses Diagnosis Long-term use 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- Primary documented in this encounter
--- OUTSIDE RECORDS SUMMARY | 2024-10-16 22:30 | XMS_ITS | Encounter Summary ---
Author Organization [facility] Address [address] [facility] [place] [address] Care Team Providers Care Special Delivery Carrier Name Role Phone Sultana Sullivan MD Primary Care Provider [phone] Encounter Details Date Type Department Care Team (Latest Contact Info) Description 02/03/2024 Travel Social History Tobacco Use Types Packs/Day [...] st Contact Info) Description 10/31/2024 10:00 AM GERICARE AIDE TEACHER Office Visit [facility] - Rheumatology [address] [place] [address], [place] [phone] Antonio Bowles MD [address] [place] [address] [place] [phone] 02/01/2025 9:00 AM CDT Appointment [facility] [address] [place] [address] Sultana Sulilvan MD [address] [place] [phone] documented as of this encounter Visit Diagnoses Not on filedocumented in this encounter Care Teams Special Delivery Carrier Relationship Specialty Start Date End Date Sultana Sullivan MD [address] [place] [phone] PCP - General 11/24/22 documented as of this encounter
--- OUTSIDE RECORDS SUMMARY | 2024-10-16 22:31 | XMS_ITS | Encounter Summary ---
Author Organization [facility] Address [address] [facility] [place] [address] Care Team Providers Care Dress Marker Name Role Phone Unavailable Primary Care Provider Unavailabl e Encounter Details Date Type Department Care Team (Latest Contact Info) Description 11/04/2021 Travel Social History Tobacco Use Types Packs/Day Years Used Date Smoking Tobacco: Former Cigarettes 0.5 20 0 03/10/2001 - 03/10/2021 Smokeless Tobacco: Never Alcohol Use Standard Drinks/Week Comments Never 0 (1 standard drink = 0.6 oz pur e alcohol) PHQ-2 Answer Date Recorded PHQ2 TOTAL SCORE 0 11/04/2021 Sex and Gender Information Value Date Recorded Sex Assigned at Not on file Gender Identity Not on file Sexual Orientation Not on file COVID-19 Exposure Response Date Recorded In the last month, have you been in contact with someone who was confirmed or suspected to have Coronavirus / COVID-19? No / Unsure 11/04/2021 9:53 AM MULE OPERATOR documented as of this encounter Plan of Treatment Upcoming Encounters Date Type Department Care Team (Late st Contact Info) Description 10/31/2024 10:00 AM MULE OPERATOR Office Visit [facility] - Rheumatology [address] [place] [address] [place] [phone] Antonio Bowles MD [address] [place] [address] [place] [phone] 02/01/2025 9:00 AM CDT Appointment [facility] [address] [place] [phone] Sultana Sullivan MD [address] [place], [place] [phone] documented as of this encounter Visit Diagnoses Not on filedocumented in this encounter
--- OUTSIDE RECORDS SUMMARY | 2024-10-16 22:31 | XMS_ITS | Encounter Summary ---
Author Organization [facility] Address [address] [facility] [place] [address] Care Team Providers Care Grain Ii Farmworker Name Role Phone Unavailable Primary Care Provider Unavailabl e Reason for Visit * Reason Onset Date Comments Rx Authorization 03/09/2022 Abner avina Encounter Details Date Type Department Care Team (Late st Contact Info) Description 03/09/2022 Telephone [facility] [address] [facility], [place] [phone] Anny Serna MD [facility] [place] [address] Rx Authorization (Abner approval) Social History Tobacco Use Types Packs/Day Years Used Date Smoking Tobacco: Former Cigarettes 0.5 20 0 03/10/2001 - 03/10/2021 Smokeless Tobacco: Never Alcohol Use Standard Drinks/Week Comments Never 0 (1 standard drink = 0.6 oz pur e alcohol) PHQ-2 Answer Date Recorded PHQ2 TOTAL SCORE 0 02/03/2022 Sex and Gender Information Value Date Recorded Sex Assigned at Not on file Gender Identity Not on file Sexual Orientation Not on file documented as of this encounter Miscellaneous Notes * Telephone Encounter - Alysha Cordova RN - 03/09/2022 11:55 AM CDT Pt called [facility] regarding update for Abner FLOOD. ALEENA was approved 03/03/22- 09/03/22 with [facility]. Joe with [facility] will inform pt to call [facility]. Cover my meds Schuler: [id number] Rx #: [id number] Dx: M06.9 Rheumatoid arthritis Current meds: Naproxen (prior to 07/2021 prev ) Tried/failed meds: Methotrexate (07/2021-12/2021) elevated LFT's documented in this encounter Plan of Treatment Upcoming Encounters Date Type Department Care Team (Late st Contact Info) Description 10/31/2024 10:00 AM FILENET ARCHITECT Office Visit [facility] - Rheumatology [address] [place] [address], [place] [phone] Antonio Bowles MD [address] [place] [address] [place] [address] 02/01/2025 9:00 AM CDT Appointment [facility] [address] [place] [phone] Sultana Sullivan MD [address] [place] [phone] documented as of this encounter Visit Diagnoses Not on filedocumented in this encounter
--- OUTSIDE RECORDS SUMMARY | 2024-10-16 22:31 | XMS_ITS | Encounter Summary ---
Author Organization [facility] Address [address] [facility] [place] [address] Care Team Providers Care Government Relations Manager Name Role Phone Unavailable Primary Care Provider Unavailabl e Reason for Visit * Reason Comments Rheumatoid Arthritis Encounter Details Date Type Department Care Team (Latest Contact Info) Description 02/03/2022 8:30 AM CDT Office Visit [facility] [place] [phone] Alma Hurtado MD [address] [place] [address] Rheumatoid arthritis, involving unspecified site, unspecified whether rheumatoid factor present (HCC) (Primary Dx); Therapeutic drug monitoring; longterm 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; High risk [...] suspected to have Coronavirus/COVID-19? No / Unsure 02/03/2022 9:44 AM CDT documented as of this encounter Last Filed Vital Signs Vital Sign Reading Time Taken Comments Blood Pressure 116/82 02/03/2022 8:48 AM CDT Pulse - - Temperature 36.2 ??C (97.1 ??F) 02/03/2022 8:48 AM CD T Respiratory Rate - - Oxygen Saturation - - Inhaled Oxygen Concentration - - Weight 52.5 kg (115 lb 12.8 oz) 02/03/2022 8:48 AM CDT Height 152.4 cm (5') 02/03/2022 8:48 AM CDT Body Mass Index 22.62 02/03/2022 8:48 AM CDT documented in this encounter Patient Instructions * Patient Instructions* Alma Hurtado MD - 02/03/2022 9:20 AM CDT Continue naproxen 500 mg twice daily Please have labs done today If labs look good, we will order Xeljanz pills for your Rheumatoid Arthritis Hold xeljanz in the future when you are on antibiotics. Let us know if you experience upset stomach. Follow up in 3 months with new fellow and Dr. arndt documented in this encounter Progress Notes * Alma Hurtado MD - 02/03/2022 8:53 AM CDT [facility] Visit Follow Up Patient Note Patient: Sultana Vincent, : 1960 PCP: No primary care provider on file. Referring Physician: Marvin Davis [address] [place] [phone] Chief Complaint Patient presents with ??? Rheumatoid Arthritis HPI: Sultana Vincent is a 61 year old female presenting for follow up of seropositive RA (+Rf, +CCP, no erosions)) Interim History -we stopped mtx on 12/28 due to persistent liver enzyme elevation. She has been on naproxen 500 mg bid only -she has been 'ok' til last week and then flared. Active diffuse synovitis today, this is the worstshe has been since I started to see her. -we need labs today to check if her liver function has improved -had a long discussion regarding medications, risks, and side effects. She remains deeply anxious and fearful of injections and infusions. She is adamant to utilize pills only. She understands risks of RAKEL inhibitors but would prefer this over any injectable or infusion TNF inhibitor. we discussed hcq which is helpful as adjunctive but not monotherapy. She remains steadfastly opposed to any needles of any kind. Discussed the increased risk of malignancy and clots with RAKEL inhibitors. She understands, and would rather accept these risks than utilize needles which give her extreme anxiety. -Cancer screening: mammogram 2-3 years ago , cologard last year, lung ct long time ago (>30 yearsmoker who quit 2020) Current meds takes naproxen bid Previous history Untreated joint pain for many years: shoulders knees, hands, ankles, neck. 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 Hands stiff all day, worst in the morning lasting 30 mins, and has trouble making a fist. Was given hydroxychloroquin 200 mg qd, naproxen 500 mg bid, tramadol, vit D 50,000 units by PCPs office but felt most were not helpful. Started MTX in 2020 with some benefit, but stopped due to persistent transaminitis. Medication averse. Review of Systems: General: -fever, -wt loss/gain, daily functioning not limited HEENT: -dry eyes, -dry mouth, -eye redness, -eye pain, -oral/nasal ulcers, vision loss CV: -chest pain, -palpitations Resp: -cough, -SOB GI: -abd pain, -constipation, -nausea, -vomiting, -diarrhea, -blood/mucus : -urine changes, -dysuria, -hematuria, MSK: -arthralgia, -myalgia, -swelling, -erythema, -warmth, -AM stiffness, -back pain Skin: -rash, -lesions, -ulcers, -hair loss, -Raynaud, -acrocyanosis, -photosensitivity Neuro: -GARCIA migraines, -vision changes, -muscle weakness, -paresthesias Psych: -depression, -anxiety ROS otherwise negative Past Medical History: Past Medical History: Diagnosis Date ??? Former smoker quit 03/2021 ??? Thrombocytosis saw heme onc 2018, no etiology found Current Medications: Current Outpatient Medications Medication Sig Dispense Refill ??? naproxen (NAPROSYN) 500 MG tablet Take 1 (one) tablet by mouth 2 times daily 180 tablet 4 ??? VITAMIN D, CHOLECALCIFEROL, PO Take 50,000 Units by mouth every 7 days No current facility-administered medications for this visit. Allergies: Patient has no known allergies. Physical Exam: BP 116/82 Temp 97.1 ??F (36.2 ??C) (Oral) Ht 5' (1.524 m) Wt 115 lb 12.8 oz (52.5 kg) BMI 22.62 kg/m2 General: no distress, cooperative, anxious Skin: no rash or lesions, no color change or livedo reticularis, normal temperature & turgor HEENT: conjunctivae and sclerae clear, PERRLA, EOMI, external ear normal, , mucus membranes moist Neck: supple, n Back: symmetric, no curvature, Chest/Lungs: lungs CTAB Heart: RRR, no murmur, no rub or gallop Abdomen: soft, non-tender, non-distended, no HSM Neurologic: grossly intact, alert, muscle strength 4+/5 Musculoskeletal Exam: Hands: 2nd and 3rd PIPs S2T1 bilaterally L 4-5th MCP S1T Rest of MCPs and PIPs are SfT1 L ankle: L 2-5th toes S1T1 patient refused R foot exam, but b/l squeeze positive Reduced network desktop support specialist strength Neck S0T1 Labs: CCP>250 in 03/2021. +CCP and +RF 07/2021 Diagnostics: 2020: C spine,Shoulders, elbows, hands, knees, feet XRs significant for OA and no erosion. Assessment/Plan: Sultana Vincent is a 61 year old female with longstanding Seropositive RA (+CCP, +RF nonerosive), diagnosed 07/2021. On initial exam she had small joint synovitis, ulnar deviation, reduced network desktop support specialist strength, and motion deficits signifying long standing disease.XRs showed OA without erosions. She started 10 mg MTX with some improvement in AM stiffness but still with ongoing synovitis of the PIPs and toes bilaterally. Herliver function test on the MTX showedelevated ALT 49 and ULN AST. Unfortunately, she continued to have worsening transaminitis and MTX was stopped in 12/2020. See today on naproxen alone, she is flaring and has significant moderate-severe synovitis. She is at high risk for progressive joint damage, She was asked to consider biologic the rapy (Enbrel, Humira) at previous visits and phone calls, but has remained significantly anxious about needles. HCQ could be helpful as adjunctive but not monotherapy. Discussed with her extensively as described in HPI; she is against tnf inhibitors and would like to proceed with oral RAKEL inhibitors. hep b c and tb neg in 07/2021. High risk medication use: Xeljanz counseling provided. It is immunosuppressive, so recommended masks and full vaccination (she refuses covid vaccine). Does have risks of headaches and upset stomach. Hold xeljanz when on abx. Higher risk of infection and prolonged infection clearance. Osteopenia diffuse on imaging: was on high dose VIt D with pcp, no history of fragility fractures. Cancer screenings hep b c and tb neg in 07/2021. UTD on breast and colonl cancer screening, but needs lung cancer screening given history of tobacco abuse. 1. Labs: today as below 2. Based on todays labs, will order xeljanz 11 mg daily 3. She will need Lung cancer screening. 4.. RTC in [address] Arndt and new fellow Patient seen and examined with Dr. Arndt. Alma Hurtado MD Rheumatology Fellow Department of Internal Medicine [facility] No orders of the defined types were placed in this encounter. Associated attestation - Anny Arndt MD - 03/14/2022 10:48 PM CDT I have seen and examined the patient, reviewed available medical records, and agree with the findings, assessment, and plan as documented by Dr. Hurtado. Ms. Vincent presents for follow up of seropositive RA. She has been off of MTX since the end of December because she developed transaminase elevation. She was feeling better when she was taking MTX still. She notes a flare last week where she had increase in pain and swelling in hands, feet, ankles wrists. She is still taking naproxen. She is still reluctant to take other medications. She absolutely does not want any injectable medication. Exam shows active synovitis in multiple joints with swelling and tenderness in bilateral MCPs and PIPs. She walks with a limp. She has fullness in her ankles. A/P: 62 year old female with seropositive RA who presents for follow up. It has been very difficult to convince her to take medication to treat this. She is adamant she does not want any injectable medications. She does not have a needle phobia, she just seems to think that because they are injectable they must have worse side effects, and cannot be educated/convinced to the contrary despite lengthy conversations in this regard. Unfortunately, she developed transaminitis on MTX so we had to stop it.She is agreeable to try RAKEL inhibitor even though we counseled her that side effect profile is lessdesirable than biologic. I do not think that alternate csDMARD will gain control of her arthritis. Will start Xeljanz. 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 Office Visit [facility] - Rheumatology [address] [place] [address] [place] [phone] Antonio Bowles MD [address] [place] [address] [place] [phone] 02/01/2025 9:00 AM CDT Appointment [facility] [address] [place] [phone] Sultana Sullivan MD [address] [place] [phone] documented as of this encounter Visit Diagnoses Diagnosis Rheumatoid arthritis, involving unspecified site, unspecified whether rheumatoid factor present ([facility])- Primary Therapeutic drug monitoring Encounter for therapeutic drug monitoring longterm 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 High risk medications (not anticoagulants) long-term use Encounter for long-term (current) use of other medications documented in this encounter
--- OUTSIDE RECORDS SUMMARY | 2024-10-16 22:31 | XMS_ITS | Encounter Summary ---
Author Organization [facility] Address [address] [place] [address] Care Team Providers Care Communication Studies Professor Name Role Phone Unavailable Primary Care Provider Unavailabl e Reason for Visit * Reason Onset Date Comments Rx Authorization 06/01/2022 [employer] denial Encounter Details Date Type Department Care Team (Late st Contact Info) Description 06/01/2022 Telephone [facility], [facility] [place] [phone] Saleem Weber MD [facility] [place] [phone] Rx Authorization ([employer] denial) Social History Tobacco Use Types Packs/Day Years [...] Telephone Encounter - Alysha Cordova RN - 06/01/2022 9:57 AM CDT Had not received determination from [employer] appeal that was faxed 04/16/22. Called [employer], they state it was denied. Faxed denial to us. Denial is in media. We can appeal for up to 60 days, Pleaseadvise on appeal. 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
--- OUTSIDE RECORDS SUMMARY | 2024-10-16 22:31 | XMS_ITS | Encounter Summary ---
Author Organization [facility] Address [address] [place] [address] Care Team Providers Care Soda Drier Feeder Name Role Phone Unavailable Primary Care Provider Unavailabl e Reason for Visit * Reason Comments Follow-up F/u RA Encounter Details Date Type Department Care Team (Late st Contact Info) Description 05/05/2022 10:00 AM CDT Office Visit [facility] [address] [place] [id number] Saleem Weber MD [address] [place] [address] Rheumatoid arthritis, involving unspecified site, unspecified whether rheumatoid factor present (HCC) (Primary Dx); Arthralgia, unspecified joint; Therapeutic drug monitoring Social History Tobacco Use [...] Sign Reading Time Taken Comments Blood Pressure 116/74 05/05/2022 10:11 AM CDT Pulse - - Temperature 36.6 ??C (97.8 ??F) 05/05/2022 10:11 AM C DT Respiratory Rate - - Oxygen Saturation - - Inhaled Oxygen Concentration - - Weight 53.3 kg (117 lb 9.6 oz) 05/05/2022 10:11 AM CDT Height 152.4 cm (5') 05/05/2022 10:11 AM CDT Body Mass Index 22.97 05/05/2022 10:11 AM CDT documented in this encounter Patient Instructions * Patient Instructions* Saleem Weber MD - 05/05/2022 11:08 AM CDT - Please take the two week sample of Rinvoq and let us know how you are doing on it - Please do the labs and imaging - Pplease follow up in 2 months. If you need to schedule,change or cancel your Rheumatology appointment -at the [facility] ([facility]) at [facility], call [phone] or [phone] (option 1) If you choose to get labs or imaging at an outside facility, it is your (as the patient) responsibility to have these results faxed to us at [phone] If you need a refill, please call your Pharmacy first and have them send us a refill request via Fax at [phone]. If you have been given a referral to a new specialist at [facility] and have not received a call to schedule within 1 week, please call [phone] to schedule your visit. If you have been referred to Physical Therapy, but do not receive a call from them to schedule an appointment within 1 week, please call [phone] to schedule your Physical Therapy appointment. You can also utilize the Physical Therapy website at [email or web address] to make an appointment. If you need to leave a message for Dr. Weber you can send her an electronic message via [employer] or leave a voicemail at [phone]. Her office FAX number is [phone]. If you have an emergency after hours, you can reach the resident surgeon Fellow by calling the [facility] [employer] at [phone], but please seek appropriate care at Urgent Care or Emergency Room. documented in this encounter Progress Notes * Saleem Weber MD - 05/05/2022 10:00 AM CDT Rheumatology Clinic Consultation Note Patient: Sultana Vincent ( , 1960, 62 year old female) Encounter Date: 05/05/2022 Chief Concern: follow up for seropositive RA Subjective History of Present Illness: Sultana Vincent is a 62 year old female presenting for follow up of seropositive RA (+Rf, +CCP, no erosions in 2020) Last clinic visit: 02/03/2022. Interval history: On her last visit various options were discussed as below and she was started on Xeljanz 11 mg daily but unfortunately patient developed nausea, headache, dizziness after taking it for 2 days and shestopped it, and not been taking any medications since January 2022 except for Ibuprofen 500 mg BID. Rivoq was submitted for authorization. It was denied today. Today, She states that she continues to have on and off joint swelling specially in the bilateral wrists and PIP joints, arthralgias in bilateral ankle, foot, shoulders, wrist, neck, fingers along with AM stiffness lasting >2-3 hrs. She said she heard Doxycycline helps arthritis and wanted to see if she can be prescribed that. We had a long conversation that it would not be helpful for her type of arthritis. She continues to deny any injectables/ infusions/ TNF agents like Enbrel, Humira, Cimzia despite long conversation. Wants to try Rinvoq despite explaining that it belongs to same class of RAKEL inhibitors like Xeljanz. She denies to try steroids for flares. She does have dry eyes. Denies rashes, vision issues, raynaud's, ulcers, sores. Last visit summary: During last visit, there was an extensive conversation between Dr. Serna, Dr. Hurtado about medications. She was deeply anxious and fearful of injections and infusions. She was adamant to utilize pills only. She understood risks of RAKEL inhibitors but preferred this over any injectable or infusion TNF inhibitor. They discussed hcq which is helpful as adjunctive but not monotherapy. She remained steadfastly opposed to any needles of any kind. Discussed the increased risk of malignancy and clots with RAKEL inhibitors. She understood, and would rather accept these risks than utilize needles which give her extreme anxiety. -Cancer screening: mammogram 2-3 years ago , cologard last year, lung ct long time ago (>30 yearsmoker who quit 2020) -Patient doesn't want COVID vaccine. Current meds takes naproxen 500 mg bid Vitamin D 50,000 IU once a week Prior medications: Xeljanz 11 mg daily: dizziness, headache, nausea [...] stopped due to persistent transaminitis. Medication averse. Family and social history: [place] Has 3 sons, no miscarriages Doesn't know if there was any family history, lost parents early. Smoked 1 ppd for >30 years and quit last year 2020 after RA diagnosis. Review of Systems: Other systems reviewed and negative or noncontributory except as stated in the HPI. Home Medications: Current Outpatient Medications: ??? naproxen (NAPROSYN) 500 MG tablet, Take 1 (one) tablet by mouth 2 times daily, Disp: 180 tablet, Rfl: 4 ??? upadacitinib ER (RINVOQ) 15 MG tablet, Take 1 (one) tablet by mouth once daily, Disp: 30 tablet, Rfl: 2 ??? VITAMIN D, CHOLECALCIFEROL, PO, Take 50,000 Units by mouth every 7 days, Disp: , [...] status: Tobacco Use ??? Smoking status: Former Smoker Packs/day: 0.50 Years: 20.00 Pack years: 10.00 Quit date: 03/10/2021 Years since quittin.1 ??? Smokeless tobacco: Never Used Vaping Use ??? Vaping Use: Never used Substance and Sexual Activity ??? Alcohol use: Never ??? Drug use: Never ??? Sexual activity: Not Currently Family History: No family history on file. Patient Care Team: No primary care provider on file. No care produce production team member to display Objective Physical Exam There were no vitals taken for this visit. GENERAL: NAD HEENT/NECK: White sclerae. Ext ears wnl. No oropharyngeal lesions. No palpable masses. CHEST/LUNGS: Normal work of breathing, CTAB. CARDIOVASCULAR: Regular rhythm, crisp S1/S2, no murmurs. No BRENDAN. ABDOMEN: S/ND/NT. SKIN/NAILS: No rashes on exposed skin. PSYCH: Alert, appropriately interactive. NEURO: Sensation intact to soft touch. 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 Labs: Reviewed, including those as noted below Recent Results (from the past 2352 hour(s)) ALDOLASE Collection Time: 02/03/22 10:21 AM Result Value Ref Range Aldolase 10.4 (H) 1.2 - 7.6 U/L URINALYSIS W/MICROSCOPIC NO CULTURE Collection Time: 02/03/22 10:21 AM Specimen: Urine Random Result Value Ref Range Color UA Yellow Straw, Yellow Clarity UA Slt Cloudy (Abnormal) Clear Specific Calhoun UA 1.015 1.005 - 1.030 pH UA 5.0 5.0 - 8.0 pH Protein UA Negative Negative Glucose UA Negative Negative Ketone UA Negative Negative Bilirubin UA Negative Negative Blood UA Negative Negative Nitrite UA Negative Negative Leukocyte Esterase 2+ (Abnormal) Negative Urobilinogen UA Negative Negative mg/dL RBC UA 0-2 None Seen, 0-2, 3-5 /HPF WBC UA 6-10 (Abnormal) None Seen, 0-5 /HPF Squamous Epithelial Cells UA 3-5 None Seen, 0-2, 3-5 /HPF Mucus UA 1+ /LPF Hyaline Casts UA 0-2 None Seen, 0-2 /LPF C-REACTIVE PROTEIN Collection Time: 02/03/22 10:21 AM Result Value Ref Range C-Reactive Protein 2.9 (H) <=0.5 mg/dL CBC WITH DIFFERENTIAL Collection Time: 02/03/22 10:21 AM Result Value Ref Range WBC 8.5 3.5 - 10.5 10??3/uL RBC 4.62 3.80 - 5.20 10??6/uL Hemoglobin 13.3 12.0 - 15.6 g/dL Hematocrit 43.1 35.0 - 45.0 % MCV 93.3 80.7 - 98.3 fL MCH 28.8 26.7 - 34.0 pg MCHC 30.9 30.8 - 35.9 g/dL Platelet Count 470 (H) 150 - 400 10??3/uL RDW-SD 46.2 36.0 - 50.0 fL RDW-CV 13.7 11.2 - 14.8 % MPV 9.7 9.4 - 12.9 fL nRBC Absolute 0.00 0 10??3/uL nRBC Auto 0.0 0 /100 WBC Neutrophils % 77.8 (H) 35.0 - 70.0 % Lymphocytes % 13.7 (L) 20.0 - 43.0 % Monocytes % 4.6 (L) 5.0 - 13.0 % Eosinophils % 3.4 0.0 - 6.0 % Basophil % 0.1 0.0 - 2.0 % Neutrophils Absolute 6.6 1.6 - 7.0 10??3/uL Lymphocyte Absolute 1.2 1.1 - 3.9 10??3/uL Monocytes Absolute 0.39 0.26 - 1.07 10??3/uL Eosinophils Absolute 0.29 0.00 - 0.47 10??3/uL Basophils Absolute 0.01 0.00 - 0.08 10??3/uL Immature Granulocytes % 0.4 0.0 - 1.0 % Immature Granulocytes Absolute 0.03 COMPREHENSIVE METABOLIC PANEL Collection Time: 02/03/22 10:21 AM Result Value Ref Range BUN 17 7 - 26 mg/dL Creatinine 0.94 0.56 - 0.96 mg/dL Sodium 140 136 - 145 mmol/L Potassium 4.6 (H) 3.5 - 4.5 mmol/L Chloride 104 98 - 107 mmol/L CO2 25 22 - 29 mmol/L Glucose 93 70 - 115 mg/dL Calcium 9.6 8.4 - 10.2 mg/dL Protein Total 7.6 6.0 - 8.3 g/dL Albumin 3.3 (L) 3.4 - 5.0 g/dL Bilirubin Total 0.4 0.2 - 1.2 mg/dL Alkaline Phosphatase 81 40 - 150 U/L ALT 19 5 - 55 U/L AST 22 5 - 34 U/L Anion Gap 16 8 - 18 BUN/Creatinine Ratio 18 7 - 23 Osmolality Calculated 291 270 - 300 mOsm/kg Albumin/Globulin Ratio 0.8 (L) 1.1 - 2.3 eGFR by CKD-EPI 69 (L) >=90 mL/min/1.73 m2 LDH BLOOD Collection Time: 02/03/22 10:21 AM Result Value Ref Range LDH Total 273 (H) 125 - 243 Units/L ERYTHROCYTE SEDIMENTATION RATE Collection Time: 02/03/22 10:21 AM Result Value Ref Range Erythrocyte Sedimentation Rate Westergren 67 (H) 0 - 30 MM/HR Other Studies: Labs: 02/03/22: Aldolase 0.4, CRP 2.9, ESR 67, LDH 273 WBC 8.5, Hb 13.3, Platelet: 470 07/22/2021: CCP >250, RF positive 59 Xrays 07/2021: Cervical spine: IMPRESSION: Multilevel degenerative disc and joint disease. No instability with flexion or extension. Chest XR: There is no focal consolidation, pleural effusion, or pneumothorax. The cardiomediastinal silhouette is normal. The visible bony thorax is intact. XR of Extremity joints: 1. Right hand: Very mild osteoarthritis. 2. [...] Small effusion. Otherwise normal. 11. Diffuse osteopenia. Assessment & Recommendations Sultana Vincent is a 62 year old female with longstanding Seropositive RA (+CCP, +RF nonerosive) for follow up #. Seropositive RA Onset : 07/2021. Diagnosis supported by clinical and serological phenotype:CCP>250 in 03/2021. +CCP and +RF 59 07/2021 Prior therapy: Xeljanz 11 mg daily: dizziness, headache, nausea after two times and took two days to feel better. Patient stopped it. Hydroxychloroquine 200 mg Methotrexate 15 mg in 2020: with some benefit, but stopped due to persistent transaminitis. Current therapy: naproxen 500 mg bid. Authorization for Rinvoq denied today. [] As detailed above, had a long conversation regarding other medications including infusions, injections. [] Gave her a sample of Rinvoq 15 mg for 2 weeks and was asked to let us know how she feels on it [] She might be convinced to do injectables if Rinvoq doesn't work [] If she continues to deny injections/ infusions we can try her on AZA/ sulfasalazine along with hydroxychloroquine [] Will repeat labs and imaging this visit as below. #. Osteopenia: Following with PCP [] Continue taking vitamin D 50,000 IU weekly as advised #. Drug Toxicity Monitoring - CBC/diff and CMP - She will need standing labs once she is on RA therapy consistently. - Cancer screenings Up to date on breast and colonl cancer screening, but needs lung cancer screening given history of tobacco abuse and was asked to follow up with her PCP. #. Immunosuppression due to drug therapy - Latent infection screen: HBsAb, HBsAg, HBcAb,HCV Ab negative in 07/2021 - TB quant negative in 07/2021 - Immunizations per PCP: for all patients on immunosuppressive therapy we recommend annual influenza vaccine, COVID19 vaccine, Prevnar, Pneumovax, Shingrix. Patient denies COVID vaccine. - Patient advised to contact clinic in case of any infections or antibiotic use. #. Follow-up: In 2 months or sooner if needed. This patient was seen and staffed with attending Dr. Serna. Saleem Weber MD Rheumatology Fellow [facility] Encounter orders: Orders Placed This Encounter ??? XR KNEE LEFT 4VW OR MORE Standing Status: Future Number of Occurrences: 1 Standing Expiration Date: 05/05/2023 Order Specific Question: Release to patient Answer: Immediate ??? XR KNEE RIGHT 4VW OR MORE Standing Status: Future Number of Occurrences: 1 Standing Expiration Date: 05/05/2023 Order Specific Question: Release to patient Answer: Immediate ??? XR FOOT RIGHT 3VW OR MORE Standing Status: Future Number of Occurrences: 1 Standing Expiration Date: 05/05/2023 Order Specific Question: Release to patient Answer: Immediate ??? XR FOOT LEFT 3VW OR MORE Standing Status: Future Number of Occurrences: 1 Standing Expiration Date: 05/05/2023 Order Specific Question: Release to patient Answer: Immediate ??? XR HAND LEFT 3VW OR MORE Standing Status: Future Number of Occurrences: 1 Standing Expiration Date: 05/05/2023 Order Specific Question: Release to patient Answer: Immediate ??? XR HAND RIGHT 3VW OR MORE Standing Status: Future Number of Occurrences: 1 Standing Expiration Date: 05/05/2023 Order Specific Question: Release to patient Answer: Immediate ??? XR ELBOW RIGHT 3VW OR MORE Standing Status: Future Number of Occurrences: 1 Standing Expiration Date: 05/05/2023 Order Specific Question: Release to patient Answer: Immediate ??? XR ELBOW LEFT 3VW OR MORE Standing Status: Future Number of Occurrences: 1 Standing Expiration Date: 05/05/2023 Order Specific Question: Release to patient Answer: Immediate ??? XR CERVICAL SPINE 4 OR 5VW Standing Status: Future Number of Occurrences: 1 Standing Expiration Date: 05/05/2023 Order Specific Question: Release to patient Answer: Immediate Order Specific Question: Which views are required? Answer: Radiologist Protocol Views ??? CBC WITH DIFFERENTIAL Order Specific Question: Release to patient Answer: Immediate ??? C-REACTIVE PROTEIN Order Specific Question: Release to patient Answer: Immediate ??? COMPREHENSIVE METABOLIC PANEL Order Specific Question: Release to patient Answer: Immediate ??? ERYTHROCYTE SEDIMENTATION RATE Order Specific Question: Release to patient Answer: Immediate ??? URINALYSIS REFLEX TO MICROSCOPIC NO CULTURE Order Specific Question: Release to patient Answer: Immediate ??? upadacitinib ER (RINVOQ) 15 MG tablet Sig: Take 1 (one) tablet by mouth once daily Dispense: 15 tablet Refill: 0 Associated attestation - Anny Serna MD - 05/13/2022 11:35 PM CDT I have seen and examined the patient, reviewed available medical records, and agree with the findings, assessment, and plan as documented by Dr. Weber. Ms. Vincent is a 62 year old female with seropositive RA who presents for follow up. She started Xeljanz after last visit but said she had headache, nausea, and dizziness so stopped it after two days. She and Dr. Hurtado spoke on the phone, and she did not want to use any injectable medications andwanted to try Rinvoq instead. Dr. Hurtado did discuss that this was the same class of side medications as Xeljanz so likely to have the same side effects. Rinvoq was not approved by insurance though hailey is not on anything other than naproxen. She is having joint pain and swelling in her knees, feet, hands. She is also having morning stiffness. Exam: A&O, NAD CV: RRR Lungs: CTAB Skin: no rash MSK: bilateral 1-3 PIPs S1T1, bilateral wrist S1T1, bilateral knees S1T1, declined to take shoes off for me. +MTP squeeze A/P: 62 year old female with seropositive RA who presents for follow up. She had LFT elevation on MTX. She has been very opposed to taking biologics. She had side effects with Xeljanz. She does not want to try a biologic, and would rather try second RAKEL inhibitor. We had a long discussion about the needto treat her arthritis given ongoing inflammation, potential for deformity and irreversible damage.Discussed that we could try for second RAKEL inhib, but if insurance didn't cover or if she had side effects, she would really need to consider biologics. She said she will continue to think about remicade or simponi aria (infusions rather than self injections) in this circumstance. In the interim, will try for Rinvoq. Anny Serna MD Adult and Pediatric Rheumatology documented in this encounter Plan of Treatment Upcoming Encounters Date Type Department Care Team (Late st Contact Info) Description 10/31/2024 10:00 AM [employer] Office Visit [facility] - Rheumatology [address] [place] [phone] Antonio Bowles MD [address] [place] [address] [place] [address] 02/01/2025 9:00 AM CDT Appointment [facility] [address] [place] [address] Sultana Sullivan MD [address] [place] [phone] documented as of this encounter Procedures Procedure Name Priority Date/Time Associated Diagnosis Comments URINALYSIS REFLEX TO MICROSCOPIC NO CULTURE Routine 05/05/2022 12:10 PM CDT Rheumatoid arthritis, involving unspecified site, unspecified whether rheumatoid factor present (HCC) Arthralgia, unspecified joint Therapeutic drug monitoring C-REACTIVE PROTEIN Routine 05/05/2022 12 :10 PM CDT Rheumatoid arthritis, involving unspecified site, unspecified whether rheumatoid factor present (HCC) Arthralgia, unspecified joint Therapeutic drug monitoring ERYTHROCYTE SEDIMENTATION RATE Routine 05/05/2022 12:10 PM CDT Rheumatoid arthritis, involving unspecified site, unspecified whether rheumatoid factor present (HCC) Arthralgia, unspecified joint Therapeutic drug monitoring CBC W AUTO DIFFERENTIAL Routine 05/05/2022 12:10 PM CDT Rheumatoid arthritis, involving unspecified site, unspecified whether rheumatoid factor present (HCC) Arthralgia, unspecified joint Therapeutic drug monitoring COMPREHENSIVE METABOLIC PANEL Routine 05/05/2022 12:10 PM CDT Rheumatoid arthritis, involving unspecified site, unspecified whether rheumatoid factor present (HCC) Arthralgia, unspecified joint Therapeutic drug monitoring documented in this encounter Results * (ABNORMAL) URINALYSIS REFLEX TO MICROSCOPIC NO CULTURE (05/05/2022 12:10 PM T) Color UA Yellow Straw, Yellow 05/05/2022 1:13 PM [facility] Clarity UA Slt Cloudy(A) Clear 05/05/2022 1:13 PM [facility] Specific Calhoun UA 1.010 1.005 - 1.030 05/05/2022 1:13 PM [facility] pH UA 5.0 5.0 - 8.0 pH 05/05/2022 1:13 PM [facility] Protein UA Negative Negative 05/05/2022 1:13 PM [facility] Glucose UA Negative Negative 05/05/2022 1:13 PM [facility] Ketone UA Negative Negative 05/05/2022 1:13 PM [facility] Bilirubin UA Negative Negative 05/05/2022 1:13 PM [facility] Blood UA Negative Negative 05/05/2022 1:13 PM [facility] Nitrite UA Negative Negative 05/05/2022 1:13 PM [facility] Leukocyte Esterase 2+(A) Negative 05/05/2022 1:13 PM [facility] Urobilinogen UA Negative Negative mg/dL 05/05/2022 1:13 PM [facility] RBC UA 3-5 None Seen, 0-2, 3-5 /HPF 05/05/2022 1:13 PM [facility] WBC UA 0-5 None Seen, 0-5 /HPF 05/05/2022 1:13 PM [facility] Squamous Epithelial Cells UA 3-5 None Seen, 0-2, 3-5 /HPF 05/05/2022 1:13 PM [facility] Mucus UA 1+ /LPF 05/05/2022 1:13 PM [facility] Urine URINE SPECIMEN OBTAINED BY CLEAN CATCH PROCEDURE / Unknown Collection / Unknown 05/05/2022 12:10 PM CDT 05/05/2022 12:43 PM CDT Narrative [facility] - 05/05/2022 1:13 PM CDT Catherine Hoffman MD LAB - URINALYS IS ORDERABLES Performing Organization Address City/[facility]/ZIP Co de Phone Number [address] [address], [facility] [phone] * (ABNORMAL) ERYTHROCYTE SEDIMENTATION RATE (05/05/2022 12:10 PM CDT) Erythrocyte Sedimentation Rate Westergren 44(H) 0 - 30 MM/HR 05/05/2022 1:08 PM CDT [facility] Blood BLOOD SPECIMEN / Unknown Lab Venipuncture / Unknown 05/05/2022 12:10 PM CDT 05/05/2022 12:47 PM CDT Catherine Hoffman MD LAB - HEMATOLO GY ORDERABLES Performing Organization Address [facility]/ZIP Co de Phone Number [address] [address], [facility] [phone] * (ABNORMAL) COMPREHENSIVE METABOLIC PANEL (05/05/2022 12:10 PM CDT) Pathologist [facility] BUN 12 7 - 26 mg/dL 05/05/2022 1:24 PM T [facility] Creatinine 0.76 0.56 - 0.96 mg/dL 05/05/2022 1:24 PM T [facility] Sodium 139 136 - 145 mmol/L 05/05/2022 1:24 PM [facility] Potassium 4.3 3.5 - 4.5 mmol/L 05/05/2022 1:24 PM [facility] Chloride 102 98 - 107 mmol/L 05/05/2022 1:24 PM [facility] CO2 26 22 - 29 mmol/L 05/05/2022 1:24 PM [facility] Glucose 92 70 - 115 mg/dL 05/05/2022 1:24 PM [facility] Calcium 9.9 8.4 - 10.2 mg/dL 05/05/2022 1:24 PM [facility] Protein Total 8.1 6.0 - 8.3 g/dL 05/05/2022 1:24 PM [facility] Albumin 3.6 3.4 - 5.0 g/dL 05/05/2022 1:24 PM [facility] Bilirubin Total 0.5 0.2 - 1.2 mg/dL 05/05/2022 1:24 PM [facility] Alkaline Phosphatase 87 40 - 150 U/L 05/05/2022 1:24 PM [facility] ALT 15 5 - 55 U/L 05/05/2022 1:24 PM [facility] AST 20 5 - 34 U/L 05/05/2022 1:24 PM [facility] Anion Gap 15 8 - 18 05/05/2022 1:24 PM [facility] BUN/Creatinine Ratio 16 7 - 23 05/05/2022 1:24 PM [facility] Osmolality Calculated 287 270 - 300 mOsm/kg 05/05/2022 1:24 PM [facility] Albumin/Globulin Ratio 0.8(L) 1.1 - 2.3 05/05/2022 1:24 PM [facility] eGFR by CKD-EPI 88(L) >=90 mL/min/1.7 3 m2 05/05/2022 1:24 PM [facility] Blood BLOOD SPECIMEN / Unknown Lab Venipuncture / Unknown 05/05/2022 12:10 PM CDT 05/05/2022 12:47 PM CDT Catherine Hoffman MD LAB - CHEMISTR Y ORDERABLES [facility] [address] [place] [address], [facility] [phone] * (ABNORMAL) C-REACTIVE PROTEIN (05/05/2022 12:10 PM CDT) C-Reactive Protein 3.4(H) <=0.5 mg/dL 05/05/2022 1:24 PM [facility] Blood BLOOD SPECIMEN / Unknown Lab Venipuncture / Unknown 05/05/2022 12:10 PM CDT 05/05/2022 12:43 PM CDT Catherine Hoffman MD LAB - CHEMISTR Y ORDERABLES [facility] [address] [place] [address], [facility] [phone] * (ABNORMAL) CBC WITH DIFFERENTIAL (05/05/2022 12:10 PM CDT) WBC 6.9 3.5 - 10.5 10? 3 /uL 05/05/2022 12:57 PM CDT [facility] RBC 4.80 3.80 - 5.20 10? 6 /uL 05/05/2022 12:57 PM [facility] Hemoglobin 13.5 12.0 - 15.6 g/dL 05/05/2022 12:57 PM [facility] Hematocrit 43.3 35.0 - 45.0 % 05/05/2022 12:57 PM [facility] MCV 90.2 80.7 - 98.3 fL 05/05/2022 12:57 PM [facility] MCH 28.1 26.7 - 34.0 pg 05/05/2022 12:57 PM [facility] MCHC 31.2 30.8 - 35.9 g/dL 05/05/2022 12:57 PM [facility] Platelet Count 512(H) 150 - 400 10? 3 /uL 05/05/2022 12:57 PM [facility] RDW-SD 45.8 36.0 - 50.0 fL 05/05/2022 12:57 PM [facility] RDW-CV 13.8 11.2 - 14.8 % 05/05/2022 12:57 PM [facility] MPV 9.5 9.4 - 12.9 fL 05/05/2022 12:57 PM [facility] nRBC Absolute 0.00 0 10? 3 /uL 05/05/2022 12:57 PM [facility] nRBC Auto 0.0 0 /100 WBC 05/05/2022 12:57 PM [facility] Neutrophils % 64.0 35.0 - 70.0 % 05/05/2022 12:57 PM [facility] Lymphocytes % 23.1 20.0 - 43.0 % 05/05/2022 12:57 PM [facility] Monocytes % 7.1 5.0 - 13.0 % 05/05/2022 12:57 PM [facility] HOSPICE Eosinophils % 5.4 0.0 - 6.0 % 05/05/2022 12:57 PM T [facility] Basophil % 0.1 0.0 - 2.0 % 05/05/2022 12:57 PM T [facility] Neutrophils Absolute 4.41 1.60 - 7.00 10? 3 /uL 05/05/2022 12:57 PM [facility] Lymphocyte Absolute 1.59 1.10 - 3.90 10? 3 /uL 05/05/2022 12:57 PM CDT [facility] Monocytes Absolute 0.49 0.26 - 1.07 10? 3 /uL 05/05/2022 12:57 PM T [facility] Eosinophils Absolute 0.37 0.00 - 0.47 10? 3 /uL 05/05/2022 12:57 PM T [facility] Basophils Absolute 0.01 0.00 - 0.08 10? 3 /uL 05/05/2022 12:57 PM T [facility] Immature Granulocytes % 0.3 0.0 - 1.0 % 05/05/2022 12:57 PM T [facility] Immature Granulocytes Absolute 0.02 05/05/2022 12:57 PM [facility] Blood BLOOD SPECIMEN / Unknown Lab Venipuncture / Unknown 05/05/2022 12:10 PM CDT 05/05/2022 12:47 PM CDT Catherine Hoffman MD LAB - HEMATOLO GY ORDERABLES [facility] [address] [place] [address], [facility] [phone] * XR CERVICAL SPINE 4 OR 5VW (05/05/2022 11:57 AM CDT) Anatomical Region Laterality Modality Spine Radiographic Ivana ging 05/05/2022 2:01 PM CDT Impressions 05/06/2022 3:08 PM CDT IMPRESSION: Mild degenerative changes are seen throughout cervical spine, similar to prior study. Mild anterolisthesis of C2 over C3 on the flexion view, unchanged compared to 07/22/2021. Report dictated by Earl Rome MD (vice president client services). Dr. Mackenzie Anguiano M.D. have personally reviewed and interpreted this examination/study. This report was electronically signed by Mackenzie OSEI M.D. ??on 05/06/2022 3:08 PM . Narrative [...] soft tissues are normal. Procedure Note Margy Osei MD - 05/06/2022 EXAMINATION: XR CERVICAL SPINE [...] dictated by Earl Rome MD (vice president client services). Dr. Mackenzie Anguiano M.D. have personally reviewed and interpretedthis examination/study. This report was electronically signed by Mackenzie OSEI M.D. on 05/06/2022 3:08 PM . Catherine Hoffman MD DIAGNOSTIC IVANA GING ORDERABLES * XR ELBOW LEFT 3VW OR MORE (05/05/2022 11:57 AM CDT) Anatomical Region Laterality Modality Upper Extremity Radiographic Ivana ging 05/05/2022 12:5 3 PM CDT Impressions 05/05/2022 12:54 PM CDT Findings/Impression: No acute fractures or dislocations is seen. No bony erosions or destructions. Joint space grossly preserved. No significant joint effusion or soft tissue swelling is seen. This report was electronically signed by SHERWIN ASIF MD, CR ??on 05/05/2022 12:54 PM . Narrative 05/05/2022 [...] signed by SHERWIN ASIF MD [facility] on 05/05/2022 12:54 PM . Catherine Hoffman MD DIAGNOSTIC IVANA GING ORDERABLES * XR ELBOW RIGHT 3VW OR MORE (05/05/2022 11:57 AM CDT) Anatomical Region Laterality Modality Upper Extremity Radiographic Ivana ging 05/05/2022 12:5 2 PM CDT Impressions 05/05/2022 12:53 PM CDT Findings/Impression: No acute fractures or dislocations is seen. No bony erosions or destructions. Joint space grossly preserved. No significant joint effusion or soft tissue swelling is seen. This report was electronically signed by SHERIWN ASIF MD, [facility] ??on 05/05/2022 12:53 PM . Narrative 05/05/2022 [...] signed by SHERWIN ASIF MD [facility] on 05/05/2022 12:53 PM . Catherine Hoffman MD DIAGNOSTIC IVANA GING ORDERABLES * XR HAND RIGHT 3VW OR MORE (05/05/2022 11:57 AM CDT) Anatomical Region Laterality Modality Wrist / Hand Radiographic Ivana ging 05/05/2022 12:4 6 PM CDT Impressions 05/05/2022 12:48 PM CDT Findings/Impression: Diffuse osteopenia is identified. Narrowing of the central joint space of the interphalangeal joints. Joint spaces at the carpal bones and carpometacarpal bones are grossly preserved. No bony erosions or destructions are seen. No acute fractures or dislocations. No significant soft tissue swelling. This report was electronically signed by SHERWIN ASIF MD, FRCR ??on 05/05/2022 12:48 PM . Narrative 05/05/2022 12:48 PM CDT Examination: XR HAND RIGHT 3VW OR MORE Date: 05/05/2022 11:57 AM Indications: Pain. Comparison: No prior studies for comparison Technique: 3 views of the right hand were obtained. Procedure Note Sherwin Asif MD - 05/05/2022 Examination: XR HAND RIGHT 3VW OR MORE Date: 05/05/2022 11:57 AM Indications: Pain. Comparison: No prior studies for comparison Technique: 3 views of the right hand were obtained. Findings/Impression: Diffuse osteopenia is identified. Narrowing of the central joint spaceof the interphalangeal joints. Joint spaces at the carpal bones and carpometacarpal bones are grossly preserved. No bony erosions or destructions are seen. No acute fractures or dislocations. Nosignificant soft tissue swelling. This report was electronically signed by SHERWIN ASIF MD, [facility] on 05/05/2022 12:48 PM . Catherine Hoffman MD DIAGNOSTIC IVANA GING ORDERABLES * XR HAND LEFT 3VW OR MORE (05/05/2022 11:57 AM CDT) Anatomical Region Laterality Modality Wrist / Hand Radiographic Ivana ging 05/05/2022 12:5 1 PM CDT Impressions 05/05/2022 12:52 PM CDT Findings/Impression: No acute fractures or dislocations is seen. Diffuse osteopenia is noted. Mild narrowing of the interphalangeal joint spaces are seen, otherwise joint spaces are unremarkable. No bony erosions are identified. No significant soft tissue swelling. This report was electronically signed by SHERWIN ASIF MD, FRCR ??on 05/05/2022 12:52 PM . Narrative 05/05/2022 12:52 PM CDT Examination: XR HAND LEFT 3VW OR MORE Date: 05/05/2022 11:57 AM Indications: Pain. Comparison: No prior studies for comparison Technique: 3 views of the left hand were obtained. Procedure Note Sherwin Asif MD - 05/05/2022 Examination: XR HAND LEFT 3VW OR MORE Date: 05/05/2022 11:57 AM Indications: Pain. Comparison: No prior studies for comparison Technique: 3 views of the left hand were obtained. Findings/Impression: No acute fractures or dislocations is seen. Diffuse osteopenia is noted. Mild narrowing of the interphalangeal joint spaces are seen, otherwise joint spaces are unremarkable. No bony erosions are identified. No significant soft tissue swelling. This report was electronically signed by SHERWIN ASIF MD [facility] on 05/05/2022 12:52 PM . Catherine Hoffman MD DIAGNOSTIC IVANA GING ORDERABLES * XR FOOT LEFT 3VW OR MORE (05/05/2022 11:57 AM CDT) Anatomical Region Laterality Modality Ankle / Foot Radiographic Ivana ging 05/05/2022 12:5 5 PM CDT Impressions 05/05/2022 12:56 PM CDT Findings/Impression: No bony erosions or destructions are seen. Osteopenia is noted. No acute fractures or dislocations. No significant soft tissue swelling. This report was electronically signed by SHERWIN ASIF MD, [facility] ??on 05/05/2022 12:56 PM . Narrative 05/05/2022 [...] by SHERWIN ASIF MD, [facility] on 05/05/2022 12:56 PM . Catherine Hoffman MD DIAGNOSTIC IVANA MELBA ORDERABLES * XR FOOT RIGHT 3VW OR MORE (05/05/2022 11:57 AM CDT) Anatomical Region Laterality Modality Ankle / Foot [...] was electronically signed by SHERWIN ASIF MD, [facility] ??on 05/05/2022 12:55 PM . Narrative 05/05/2022 [...] by SHERWIN ASIF MD, FRCR on 05/05/2022 12:55 PM . Catherine Hoffman [...] was electronically signed by SHERWIN ASIF MD, FR ??on 05/05/2022 12:46 PM . Narrative 05/05/2022 [...] signed by SHERWIN ASIF MD, [facility] on 05/05/2022 12:46 PM . Catherine Hoffman MD DIAGNOSTIC IVANA MELBA ORDERABLES documented in this encounter Visit Diagnoses Diagnosis Rheumatoid arthritis, involving unspecified site, unspecified whether rheumatoid factor present (HCC)- Primary Arthralgia, unspecified joint Therapeutic drug monitoring Encounter for therapeutic drug monitoring Rheumatoid arthritis, involving unspecified site, unspecified whether rheumatoid factor present (HCC) Arthralgia, unspecified joint Therapeutic drug monitoring Encounter for therapeutic drug monitoring documented in this encounter
--- OUTSIDE RECORDS SUMMARY | 2024-10-16 22:31 | XMS_ITS | Encounter Summary ---
Author Organization [facility] Address [address] [place] [address] Care Team Providers Care Deputy Chief Magistrate Name Role Phone Unavailable Primary Care Provider Unavailabl e Reason for Visit * Reason Onset Date Comments Appointment 11/03/2022 Encounter Details Date Type Department Care Team (Late st Contact Info) Description 11/03/2022 Telephone [facility] [address] [facility], [facility] [place] [phone] Saleem Weber MD [facility] E [facility] MD [place] [phone] Appointment Social History Tobacco Use Types Packs/Day Years [...] Telephone Encounter - Saleem Weber MD - 11/03/2022 10:53 AM CST Called the patient 4-5 times to ask her to join the video visit. She had a video visit appointment with us at 9 AM. Sent message text with link. Unfortunately had to leave a voice message. Did not hear back from her. OL COUNSELOR documented in this encounter Plan of Treatment Upcoming Encounters Date Type Department Care Team (Late st Contact Info) Description 10/31/2024 10:00 AM SCHOOL COUNSELOR Office Visit [facility] - Rheumatology [address] [facility], [facility] [place] [phone] Antonio Bowles MD [address] [place] [address] [place] [phone] 02/01/2025 9:00 AM CDT Appointment [facility] [address] [place] [address] Sultana Sullivan MD [address] [place] [phone] documented as of this encounter Visit Diagnoses Not on filedocumented in this encounter
--- OUTSIDE RECORDS SUMMARY | 2024-10-16 22:31 | XMS_ITS | Clinical Summary ---
Author Organization [facility] Address [address] [place] [address] Care Team Providers Care Palletizer Operator Name Role Phone Provider, Abstract Primary Care Provider Unavail able Allergies Active Allergy Reactions Criticality Noted Date Comments Iodine Itching Low 05/04/2019 Medications Medication Sig Dispensed Refills Start Date End Date Status VITAMIN D2 50,000 unit capsule Take 1 Capsule by mouth every 7 days. 3 03/07/2019 Active Active Problems No known active problems Family History Medical History Relation Name Comments Skin Cancer Brother Testicular Cancer Father Healthy Half-Brother Healthy Half-Sister 1 Healthy Half-Sister 2 Hypertension Mother Kidney Disease Mother Relation Name Status Comments Brother Father Half-Brother Alive Half-Sister 1 Alive Half-Sister 2 Alive Mother Social History Tobacco Use Types Packs/Day Years Used Date Smoking Tobacco: Every Day Cigarettes Smokeless Tobacco: Current Tobacco Cessation:Ready to Q uit: Yes Alcohol Use Standard Drinks/Week Comments Never 0 (1 standard drink = 0.6 oz pur e alcohol) Sex and Gender Information Value Date Recorded Sex Assigned at Not on file Gender Identity Not on file Sexual Orientation Not on file Last Filed Vital Signs Vital Sign Reading Time Taken Comments Blood Pressure 118/76 05/04/2019 9:26 AM CDT Pulse 74 05/04/2019 9:26 AM CDT Temperature 36.8 ??C (98.3 ??F) 05/04/2019 9:26 AM CD T Respiratory Rate 18 03/30/2019 10:1 8 AM CDT Oxygen Saturation 98% 05/04/2019 9:26 AM CDT Inhaled Oxygen Concentration - - Weight 46.2 kg (101 lb 14.4 oz) 05/04/2019 9:26 AM CDT Height 152.4 cm (5') 05/04/2019 9:26 AM CDT Body Mass Index 19.9 05/04/2019 9:26 AM CDT Plan of Treatment Health Maintenance Due Date Last Done Comments PNEUMOCOCCAL VACCINE 65+ YEARS (1 of 2 - PCV) 02/18/19 64 DTAP/TDAP/TD VACCINES (1 - Tdap) 1978 BREAST CANCER SCREENING 1999 COLORECTAL SCREENING 02/19/2004 Colorectal Cancer Screening 02/19/2004 FIT-DNA Q 3 years 02/19/2004 FIT/FOBT Q 1 year 02/19/2004 Flex Sig/CT Colonography Q 5 years 02/19/2004 ZOSTER VACCINE (1 of 2) 2009 OSTEOPOROSIS SCREENING 02/19/2024 INFLUENZA VACCINE (#1) 2024 RSV VACCINE (60+ or ) (1 - 1-dose 75+ series) 2034 Care Teams Palletizer Operator Relationship Specialty Start Date End Date Provider, Abstract NO ADDRESS ON FILE PCP - General 02/27/19
--- OUTSIDE RECORDS SUMMARY | 2024-10-16 22:31 | XMS_ITS | Encounter Summary ---
Author Organization [facility] Address [address] [place] [address] Care Team Providers Care Lighting Designer Name Role Phone Provider, Abstract Primary Care Provider Unavail able Encounter Details Date Type Department Care Team (Late st Contact Info) Description 05/09/2019 Orders Only [facility] Oncology and Hematology - Pedro Luis [address] [facility] [address] [place] [address] Ifeanyi Marquez MD [address] [facility] [address] [place] [address] Encounter for screening for lung cancer (Primary Dx) Social History Tobacco Use Types Packs/Day Years Used Date Smoking Tobacco: Every Day Cigarettes Smokeless Tobacco: Current Alcohol Use Standard Drinks/Week Comments Never 0 (1 standard drink = 0.6 oz pur e alcohol) Sex and Gender Information Value Date Recorded Sex Assigned at Not on file Gender Identity Not on file Sexual Orientation Not on file documented as of this encounter Plan of Treatment Not on file documented as of this encounter Visit Diagnoses Diagnosis Encounter for screening for lung cancer- Primary documented in this encounter Care Teams Lighting Designer Relationship Specialty Start Date End Date Provider, Abstract NO ADDRESS ON FILE PCP - General 02/27/19 documented as of this encounter
--- OUTSIDE RECORDS SUMMARY | 2024-10-16 22:31 | XMS_ITS | Encounter Summary ---
Author Organization [facility] Address [address] [place] [address] Care Team Providers Care Commissions Analyst Name Role Phone Unavailable Primary Care Provider Unavailabl e Reason for Visit * Reason Comments Arthritis RA Encounter Details Date Type Department Care Team (Late st Contact Info) Description 07/29/2021 8:30 AM CDT Office Visit [facility] [address] [place] [phone] Alma Hurtado MD [facility] [place] [address] Rheumatoid arthritis, involving unspecified site, unspecified whether rheumatoid factor present (HCC) (Primary Dx); Therapeutic drug monitoring Social History Tobacco Use [...] have Coronavirus / COVID-19? No / Unsure 07/22/2021 11:45 AM CDT documented as of this encounter Last Filed Vital Signs Vital Sign Reading Time Taken Comments Blood Pressure 110/78 07/29/2021 8:25 AM CDT Pulse 76 07/29/2021 8:25 AM CDT Temperature 36.4 ??C (97.5 ??F) 07/29/2021 8:25 AM CD T Respiratory Rate - - Oxygen Saturation - - Inhaled Oxygen Concentration - - Weight 51.3 kg (113 lb) 07/29/2021 8:25 AM CDT Height 152.4 cm (5') 07/29/2021 8:25 AM CDT Body Mass Index 22.07 07/29/2021 8:25 AM CDT documented in this encounter Patient Instructions * Patient Instructions* Alma Hurtado MD - 07/29/2021 9:14 AM CDT You have untreated Rheumatoid Arthritis Please start taking methotrexate 4 tabs every week, and folic acid daily Have labs drawn on Aug 10--make sure you tell them to fax the results to [phone] Then after that, you should have labs drawn every 4-6 weeks to keep an eye on your liver function We expect the methotrexate to take weeks to start having effect Continue naproxen twice a day Go to www.[email or web address].org to get information on Rheumatoid Arthritis Please call us anytime if you have any concerns or questions Please return to clinic in 2-[address] Hurtado/Dr Serna on Tuesday mornings only If you need to change or cancel your Rheumatology appointment - At the [facility] Specialized Medicine ([facility]) at [facility] [facility], call [phone]. If you need a refill request, have your pharmacy fax a request to [phone]. If you need to leave a message for Dr. Hurtado you can send her an electronic message via [employer] or leave a voicemail at [phone]. Her office FAX number is [phone]. For after hours emergency only, you can call the [facility] log chipper operator at [phone] and ask for the Senior Research Consultant superintendent concrete mixing plant to be paged. documented in this encounter Progress Notes * Alma Hurtado MD - 07/29/2021 5:18 PM CDT [facility] Visit Follow Up Patient Note Patient: Sultana Vincent, : 1960 PCP: No primary care provider on file. Referring Physician: Marvin Davis [address] [place] [address] Chief Complaint Patient presents with ??? Arthritis RA HPI: Sultana Vincent is a 61 year old female presenting for follow up of seropositive RA )+Rf, +CCP) Interim history She research methotrexate and is anxious about side effects but willing to start it bec she no longer wants to feel stiff. Scheduled naproxen is helping with her pain and swelling, but she notes thatshe still feels stiff all day. We discussed treatments, side effects, and management. We discussed that methotrexate treatment is needed to prevent oil heaterman bony involvement. She would like to avoidinjectable meds. Previous history Untreated joint pain for many years: shoulders knees, hands, ankles, neck. 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 Hands stiff all day, worst in the morning lasting 30 mins, and has trouble making a fist. Feels achy all over and improveswith rest. +CCP >250 in March. Was given hydroxychloroquin 200 mg qd, naproxen 500 mg bid, tramadol, vit D 50,000 units by PCPs office but felt most were not helpful. Aleve helps a bit Review of Systems: General: -fever, -wt loss/gain, [...] Outpatient Medications Medication Sig Dispense Refill ??? folic acid (FOLVITE) 1 MG tablet Take 1 (one) tablet by mouth once daily 90 tablet 4 ??? methotrexate 2.5 MG tablet Take 4 (four) tablets by mouth every 7 days Reasons: Rheumatoid Arthritis 16 tablet 4 ??? naproxen (NAPROSYN) 500 MG tablet Take 1 (one) tablet by mouth 2 times daily 180 tablet 4 ??? VITAMIN D, CHOLECALCIFEROL, PO Take 50,000 Units by mouth every 7 days No current facility-administered medications for this visit. Allergies: Patient has no known allergies. Physical Exam: BP 110/78 (BP SITE: LEFT ARM, BP POSITION: SITTING, BP CUFF SIZE: 11) Pulse 76 Temp 97.5 ??F (36.4 ??C) (Oral) Ht 5' (1.524 m) Wt 113 lb (51.3 kg) BMI 22.07 kg/m2 General: no distress, cooperative, anxious Skin: [...] intact, alert, muscle strength 4+/5 Musculoskeletal Exam: [employer] strength 4-/5 Hands: b/l 5th PIP SfT1 (swelling is improved from last week) 2-3 MCPs bilaterally SfT1, 4-5 SfT1 Labs: CCP>250 in 03/2021. +CCP and +RF 07/2021 Diagnostics: C spine,Shoulders, elbows, hands, knees, feet XRs significant for OA and no erosion. Assessment/Plan: Sultana Vincent is a 61 year old female with longstanding seropositive RA (+CCP, +RF), diagnosed 2020. 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 XRs showed OA without erosions. After long discussion, she is agreeable to trialing low dose methotrexate. We discussed risks and benefits including risk of liver injury, pulm involvement, infections, oral sores; also discussed need for lab monitoring anddaily folic acid supplementation. She will reach out to us with any questions or concerns. 1. Labs: every 4-6 weeks. She will get the first set between dose 2 and 3 of methotrexate 2. Radiology: discussed R knee bone island XR finding; will repeat imaging in 3 months (around or after Oct 22, 2020) 3. Medications: continue naproxen 500 mg bid. Start methotrexate 4 tabs weekly and daily FA 4. Other: Suspect she may need a biologic therapy but currently Is hesitant to utilize injectable meds. 5. RTC in 2 months Patient seen and examined with Dr. Serna. Alma Hurtado MD Rheumatology Fellow Department of Internal Medicine [facility] Orders Placed This Encounter ??? CBC WITH DIFFERENTIAL Please have results faxed to [phone] Hurtado Standing Status: Standing Number of Occurrences: 12 Standing Expiration Date: 08/29/2022 Order Specific Question: Release to patient Answer: Immediate ??? COMPREHENSIVE METABOLIC PANEL Please have results faxed to [phone] John Hurtado Standing Status: Standing Number of Occurrences: 12 Standing Expiration Date: 08/29/2022 Order Specific Question: Release to patient Answer: Immediate ??? C-REACTIVE PROTEIN Please have results faxed to [phone] John Hurtado Standing Status: Standing Number of Occurrences: 12 Standing Expiration Date: 08/29/2022 Order Specific Question: Release to patient Answer: Immediate ??? ERYTHROCYTE SEDIMENTATION RATE Please have results faxed to [phone] John Hurtado Standing Status: Standing Number of Occurrences: 12 Standing Expiration Date: 08/29/2022 Order Specific Question: Release to patient Answer: Immediate ??? URINALYSIS W/MICROSCOPIC NO CULTURE Please have results faxed to [phone] John Hurtado Standing Status: Standing Number of Occurrences: 12 Standing Expiration Date: 08/29/2022 Order Specific Question: Release to patient Answer: Immediate ??? methotrexate 2.5 MG tablet Sig: Take 4 (four) tablets by mouth every 7 days Reasons: Rheumatoid Arthritis Dispense: 16 tablet Refill: 4 ??? folic acid (FOLVITE) 1 MG tablet Sig: Take 1 (one) tablet by mouth once daily Dispense: 90 tablet Refill: 4 OUT AND DETAIL DRAFTER * Anny Serna MD - 07/29/2021 10:33 AM CDT I have seen and examined the patient, reviewed available medical records, and agree with the findings, assessment, and plan as documented by Dr. Hurtado. Please see her note for full details. Since herinitial visit last week, Ms. Vincent has been taking the naproxen regularly. It has helped the stiffness and pain some, but she still has hours of morning stiffness a day and pain in her hands. Shehas swelling in her fingers. The stiffness is the most bothersome symptom. She is a little apprehensive about starting methotrexate because she is worried about nausea and immunosuppression, but willing to try to combat her symptoms. Exam: A&O, NAD CV: RRR Lungs: CTAB MSK: Bilateral 2nd and 3rd MCPs S1T1, 4th-5th SfT1 Ulnar deviation left hand Bilateral 5th PIPS S1T1 Wrist decrease extension bilaterally, pain with ROM, left wrist decrease flexion Knees tender bilat Bilateral MTP fullness +midfoot squeeze bilateraly Ankles S0T1 A/P: 61 year old female with new diagnosis of seropositive (anti CCP and RF) RA. No radiographic changesyet. She notes improvement but continued pain and stiffness on naproxen. Will start MTX 10 mg qweekwith 1 mg FA daily. Labs prior to 3rd dose MTX, and will then uptitrate. Continue naproxen bid. Needs repeat knee XR next visit to f/u sclerotic lesion on XR. Anny Serna MD Adult and Pediatric Rheumatology documented in this encounter Plan of Treatment Upcoming Encounters Date Type Department Care Team (Late st Contact Info) Description 10/31/2024 10:00 AM LAY OUT AND DETAIL DRAFTER Office Visit [facility] - Rheumatology [address] [facility], [facility] [place] [phone] Antonio Bowles MD [address] [place] [address] [place] [phone] 02/01/2025 9:00 AM CDT Appointment [facility] [address] [place] [address] Sultana Sullivan MD [address] [place] [phone] documented as of this encounter Visit Diagnoses Diagnosis Rheumatoid arthritis, involving unspecified site, unspecified whether rheumatoid factor present ([facility])- Primary Therapeutic drug monitoring Encounter for therapeutic drug monitoring documented in this encounter
--- OUTSIDE RECORDS SUMMARY | 2024-10-16 22:31 | XMS_ITS | Encounter Summary ---
Author Organization [facility] Address [address] [facility] [place] [address] Care Team Providers Care Rotary Pump Operator Name Role Phone Unavailable Primary Care Provider Unavailabl e Reason for Visit * Reason Onset Date Comments Med Change Request 02/19/2022 Encounter Details Date Type Department Care Team ([facility] st Contact Info) Description 02/19/2022 Telephone [facility] [address] [place] [phone] Alma Hurtado MD [facility] [place] [address] Med Change Request Social History Tobacco Use Types Packs/Day [...] AM CDT documented as of this encounter Miscellaneous Notes * Telephone Encounter - Alysha Cordova RN - 02/19/2022 9:27 AM CDT Pt called and is asking if she will be starting the Xeljanz? please advise. Pt callback number [phone]. documented in this encounter Plan of Treatment Upcoming Encounters Date Type Department Care Team (Late st Contact Info) Description 10/31/2024 10:00 AM NEW CAR SALES MANAGER Office Visit [facility] - Rheumatology [address] [place] [address], [place] [phone] Antonio Bowles MD [address] [place] [address] [place] [phone] 02/01/2025 9:00 AM CDT Appointment [facility] [address] [place] [address] [place] [address] [place] [phone] documented as of this encounter Visit Diagnoses Not on filedocumented in this encounter
--- OUTSIDE RECORDS SUMMARY | 2024-10-16 22:31 | XMS_ITS | Encounter Summary ---
Author Organization [facility] Address [address] [facility] [place] [address] Care Team Providers Care Clay Preparation Supervisor Name Role Phone Unavailable Primary Care Provider Unavailabl e Encounter Details Date Type Department Care Team (Latest Contact Info) Description 05/05/2022 11:20 AM CDT - 05/05/2022 11:28 AM CDT Hospital Encounter [facility] [address] [place] [phone] Catherine Hoffman MD [address] [place] [phone] Discharge Disposition: Home or Self Care Social [...] Date End Date naproxen (NAPROSYN) 500 MG tabletIndications:Rheumatoi d arthritis, involving unspecified site, unspecified whether rheumatoid factor present (HCC) Take 1 (one) tablet by mouth 2 times daily 180 tablet 4 07/22/2021 01/11/2023 upadacitinib ER (RINVOQ) 15 MG tablet Take 1 (one) tablet by mouth once daily 15 tablet 05/05/2022 02/09/2023 upadacitinib ER (RINVOQ) 15 MG tabletIndications:Arthralgi a, unspecified joint,Rheumatoid arthritis, involving unspecified site, unspecified whether rheumatoid factor present (HCC),Therapeutic drug monitoring,financial compliance officer 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,High risk medications (not anticoagulants) long-term use Take 1 (one) tablet by mouth once daily 30 tablet 2 03/29/2022 07/07/2022 VITAMIN D, CHOLECALCIFEROL, PO Take 50,000 Units by mouth every 7 days 11/10/2022 Xeljanz XR 11 MG tablet Take 11 mg by mouth once daily 04/05/2022 07/07/2022 documented as of this encounter Plan of Treatment Upcoming Encounters Date Type Department Care Team (Late st Contact Info) Description 10/31/2024 10:00 AM BOILER ERECTOR Office Visit [facility] - Rheumatology [address] [place] [address] [place] [address] Antonio Bowles MD [address] [place] [address] [place] [phone] 02/01/2025 9:00 AM CDT Appointment [facility] [address] [place] [address] Sultana Sullivan MD [address] [place] [phone] documented as of this encounter Visit Diagnoses Not on filedocumented in this encounter
--- OUTSIDE RECORDS SUMMARY | 2024-10-16 22:31 | XMS_ITS | Encounter Summary ---
Author Organization [facility] Address [address] [facility] [place] [address] Care Team Providers Care Completion Manager Name Role Phone Unavailable Primary Care Provider Unavailabl e Encounter Details Date Type Department Care Team (Latest Contact Info) Description 07/22/2021 Travel Social History Tobacco Use Types Packs/Day [...] AM CDT documented as of this encounter Plan of Treatment Upcoming Encounters Date Type Department Care Team (Late st Contact Info) Description 10/31/2024 10:00 AM STAGE DIRECTOR Office Visit [facility] - Rheumatology [address] [place] [address], [place] [phone] Antonio Bowles MD [address] [place] [address] [place] [phone] 02/01/2025 9:00 AM CDT Appointment [facility] [address] [place] [address] Sultana Sullivan MD [address] [place] [phone] documented as of this encounter Visit Diagnoses Not on filedocumented in this encounter
--- OUTSIDE RECORDS SUMMARY | 2024-10-16 22:31 | XMS_ITS | Encounter Summary ---
Author Organization [facility] Address [address] [place] [address] Care Team Providers Care Onshore Diver Name Role Phone Unavailable Primary Care Provider Unavailabl e Reason for Visit * Reason Onset Date Comments Coordination Of Care 04/15/2022 Encounter Details Date Type Department Care Team (Late st Contact Info) Description 04/15/2022 Telephone [facility] [address] [facility] [place] [phone] Alma Hurtado MD [facility] [place] [address] Coordination Of Care Social History Tobacco Use Types Packs/Day [...] encounter Miscellaneous Notes * Telephone Encounter - Alma Hurtado MD - 04/15/2022 4:15 PM CDT Called Insurance company to initiate urgent appeal. They request documents to be faxed to [phone] Attn insurance: patient has Seropositive RA (+CCP, +RF nonerosive), diagnosed 07/2021. On initial exam she had small joint synovitis, ulnar deviation, reduced sales administration manager strength, and motion deficits signifying long standing disease. XRs showed OA without erosions. She started 10 mg MTX with some improvement in AM stiffness but still with ongoing synovitis of the PIPs and toes bilaterally. Her liver function test on the MTX showed elevated ALT 49 and ULN AST. Unfortunately, she continued to have worsening transaminitis and MTX was stopped in 12/2020. See today on naproxen alone, she is flaring and has significant moderate-severe synovitis. She is at high risk for progressive joint damage with early joint deformities already present, We discussed biologic therapy (Enbrel, Humira) at multiple previous visits and phone calls, but Sultana has remained extremely anxious about needles. She steadfastly refuses both injections and infusions, and I am concerned she would not administer injectables if prescribed. HCQ could be helpful as adjunctive but not monotherapy. After extensive discussion, she remains opposed to tnf inhibitors and would like to proceed with oral RAKEL inhibitors. hep b c and tb neg in 07/2021. She started Xeljanz in February 2022, but by March 2022 stopped the medicine due to severe debilitating nausea. She does not want to retry this medication. She remains actively opposed to infusion medicines ?? Next best option would be rinvoq. discussed that this has similar risk benefit profile to xeljanz, including cancer and thromboembolism. she will proceed with this medicine. This is currently her best option to prevent progressive joint damage. Her very significant anxiety prevents her from utilizing injectable and IV TNF inhibitor options like Humira and Cimzia. Discussed with Attending Dr. Daphne Hurtado MD Rheumatology Fellow documented in this encounter Plan of Treatment Upcoming Encounters Date Type Department Care Team (Late st Contact Info) Description 10/31/2024 10:00 AM INSTRUMENT ASSEMBLY SUPERVISOR Office Visit [facility] - Rheumatology [address] [place] [address], [place] [address] Antonio Bowles MD [address] [place] [address] [place] [phone] 02/01/2025 9:00 AM CDT Appointment [facility] [place] [address] Sultana Sullivan MD [address] [place] [phone] documented as of this encounter Visit Diagnoses Not on filedocumented in this encounter
--- OUTSIDE RECORDS SUMMARY | 2024-10-16 22:31 | XMS_ITS | Encounter Summary ---
Author Organization [facility] Address [address] [facility] [place] [address] Care Team Providers Care Biomedical Electronics Technician Name Role Phone Unavailable Primary Care Provider Unavailabl e Reason for Visit * Reason Onset Date Comments Medication Issue 04/14/2022 Encounter Details Date Type Department Care Team (Late st Contact Info) Description 04/14/2022 Telephone [facility] [address] [facility] [place] [phone] Alma Hurtado MD [address] [place] [address] Medication Issue Social History Tobacco Use Types Packs/Day Years [...] Telephone Encounter - Alysha Cordova RN - 04/16/2022 12:12 PM CDT Appeal faxed. * Telephone Encounter - Alysha Cordova RN - 04/14/2022 3:10 PM CDT Received denial for Rinvoq, Pt calling asking what's next. Please advise on next steps for medication. Pt callback number [phone]. documented in this encounter Plan of Treatment Upcoming Encounters Date Type Department Care Team (Late st Contact Info) Description 10/31/2024 10:00 AM DRYWALL INSTALLER Office Visit [facility] - Rheumatology [address] [place] [address], [place] [phone] Antonio Bowles MD [address] [place] [address] [place] [phone] 02/01/2025 9:00 AM CDT Appointment [facility] [address] [place] [address] Sultana Sullivan MD [address] [place] [phone] documented as of this encounter Visit Diagnoses Not on filedocumented in this encounter
--- OUTSIDE RECORDS SUMMARY | 2024-10-16 22:31 | XMS_ITS | Encounter Summary ---
Author Organization [facility] Address [address] [facility] [place] [address] Care Team Providers Care Manufacturing Industrial Engineer Name Role Phone Unavailable Primary Care Provider Unavailabl e Reason for Visit * Reason Onset Date Comments Medication Issue 03/23/2022 Encounter Details Date Type Department Care Team ([facility] st Contact Info) Description 03/23/2022 Telephone [facility] [address] [place] [phone] Alma Hurtado MD [facility] [place] [address] Medication Issue Social History Tobacco Use Types [...] Telephone Encounter - Alma Hurtado MD - 03/23/2022 5:17 PM CDT Spoke with patient today She had dizziness nausea and feeling unwell after taking second dose of Xeljanz. feeling persisted for several days. History of anxiety. States this has never happened before. She does not want to retry this medication she remains actively opposed to infusion medicines Next best option would be rinvoq. discussed that this has similar risk benefit profile to xeljanz, including cancer and thromboembolism. she will proceed with this medicine. Plan to be discussed with attending physician Dr. Serna. documented in this encounter Plan of Treatment Upcoming Encounters Date Type Department Care Team (Late st Contact Info) Description 10/31/2024 10:00 AM V BLOCK SAW OPERATOR Office Visit [facility] - Rheumatology [address] [place] [address], [place] [phone] Antonio Bowles MD [address] [place] [address] [place] [address] 02/01/2025 9:00 AM CDT Appointment [facility] [address] [place] [address] Sultana Sullivan MD [address] [place] [phone] documented as of this encounter Visit Diagnoses Not on filedocumented in this encounter
--- OUTSIDE RECORDS SUMMARY | 2024-10-16 22:31 | XMS_ITS | Encounter Summary ---
Author Organization [facility] Address [address] [facility] [place] [address] Care Team Providers Care Powerhouse Attendant Name Role Phone Unavailable Primary Care Provider Unavailabl e Reason for Visit * Reason Onset Date Comments Medication Monitoring 07/31/2021 Encounter Details Date Type Department Care Team ([facility] st Contact Info) Description 07/31/2021 Telephone [facility] [address] [facility] [place] [phone] Alma Hurtado MD [address] [place] [address] Medication Monitoring Social History Tobacco Use Types Packs/Day Years [...] Telephone Encounter - Alma Hurtado MD - 07/31/2021 3:49 PM CDT Called and left VM for patient, asking how she is feeling on the mtx. requested she can call us anytime if any concerns about her new meds documented in this encounter Plan of Treatment Upcoming Encounters Date Type Department Care Team (Late st Contact Info) Description 10/31/2024 10:00 AM ELECTRICIAN CONTROL EQUIPMENT Office Visit [facility] - Rheumatology [address] [place] [address], [place] [address] Antonio Bowles MD [address] [place] [address] [place] [address] 02/01/2025 9:00 AM CDT Appointment [facility] [address] [place] [address] Sultana Sullivan MD [address] [place] [phone] documented as of this encounter Visit Diagnoses Not on filedocumented in this encounter
--- OUTSIDE RECORDS SUMMARY | 2024-10-16 22:31 | XMS_ITS | Encounter Summary ---
Author Organization [facility] Address [address] [facility] [place] [address] Care Team Providers Care Pathological Technician Name Role Phone Unavailable Primary Care Provider Unavailabl e Reason for Visit * Reason Onset Date Comments Question 01/08/2022 Encounter Details Date Type Department Care Team (Late Contact Info) Description 01/08/2022 Telephone [facility] [address] [place] [address], [facility] [place] [phone] Anny Serna MD [address] [place] [address] [place] [address] Question Social History Tobacco Use Types Packs/Day [...] encounter Miscellaneous Notes * Telephone Encounter - Elba West - 01/08/2022 1:13 PM CDT Patient called today and stated that you wanted her to check out some different medication...[phone] documented in this encounter Plan of Treatment Upcoming Encounters Date Type Department Care Team (Late Contact Info) Description 10/31/2024 10:00 AM SURVEY RESEARCH MANAGER Office Visit [facility] - [facility]ology [address] [facility], [place] [phone] Antonio Bowles MD [address] [place] [address] [place] [phone] 02/01/2025 9:00 AM CDT Appointment [facility] [address] [place] [address] Sultana Sullivan MD [address] [place] [phone] documented as of this encounter Visit Diagnoses Not on filedocumented in this encounter
--- OUTSIDE RECORDS SUMMARY | 2024-10-16 22:31 | XMS_ITS | Encounter Summary ---
Author Organization [facility] Address [address] [place] [address] Care Team Providers Care Squash Centre Manager Name Role Phone Unavailable Primary Care Provider Unavailabl e Encounter Details Date Type Department Care Team (Late Contact Info) Description 09/16/2021 Orders Only [facility] [address] [place] [phone] Anny Serna MD [address] [place] [address] [place] [address] Social History Tobacco Use Types Packs/Day Years [...] (Late Contact Info) Description 10/31/2024 10:00 AM ZIGZAG TUNNEL ELASTIC OPERATOR Office Visit [facility] - Rheumatology [address] [place] [phone] Antonio Bowles MD [address] [place] [address] [place] [phone] 02/01/2025 9:00 AM CDT Appointment [facility] [address] [place] [address] Sultana Sullivan MD [address] [place] [address] documented as of this encounter Procedures Procedure Name Priority Date/Time Associated Diagnosis Comments URINALYSIS MICROSCOPIC ONLY REFLEXED 09/16/2021 4:37 PM ZIGZAG TUNNEL ELASTIC OPERATOR URINALYSIS REFLEX TO MICROSCOPIC NO CULTURE 09/16/2021 4:37 PM ZIGZAG TUNNEL ELASTIC OPERATOR C-REACTIVE PROTEIN 09/16/2021 4: 37 PM ZIGZAG TUNNEL ELASTIC OPERATOR ERYTHROCYTE SEDIMENTATION RATE 09/16/2021 4:37 PM ZIGZAG TUNNEL ELASTIC OPERATOR CBC W AUTO DIFFERENTIAL 09/16/2021 4:37 PM ZIGZAG TUNNEL ELASTIC OPERATOR COMPREHENSIVE METABOLIC PANEL 09/16/2021 4:37 PM ZIGZAG TUNNEL ELASTIC OPERATOR documented in this encounter Results * (ABNORMAL) C-REACTIVE PROTEIN (09/16/2021 4:37 PM ZIGZAG TUNNEL ELASTIC OPERATOR) C-Reactive Protein 11(H) 0 - 10 mg/L [facility] INSURANCE BILL 09/16/2021 4:37 PM ZIGZAG TUNNEL ELASTIC OPERATOR 09/16/2021 Narrative Resulting Agency Comment [facility] performed [facility]: [facility] [address] ??[facility] [phone] Anny Serna MD LAB - CHEMISTRY ORDERABLES [facility] INSURANCE BILL [address] [place] [address] * (ABNORMAL) URINALYSIS MICROSCOPIC ONLY REFLEXED (09/16/2021 4:37 PM ZIGZAG TUNNEL ELASTIC OPERATOR) WBC UA 0-5 0 - 5 /hpf [facility] INSURANCE BILL RBC UA None seen 0 - 2 /hpf [facility] INSURANCE BILL Epithelial Cells (non renal) >10(A) 0 - 10 /hpf [facility] INSURANCE BILL Epithelial Cells (renal) NOT NEEDED [facility] INSURANCE BILL Comment:Ancillary determined the test is not needed. Casts ua None seen None seen /lpf [facility] INSURANCE BILL Casts UA NOT NEEDED [facility] INSURANCE BILL Comment:Ancillary determined the test is not needed. Crystals UA NOT NEEDED [facility] INSURANCE BILL Comment:Ancillary determined the test is not needed. Crystals UA NOT NEEDED [facility] INSURANCE BILL Comment:Ancillary determined the test is not needed. Mucus UA NOT NEEDED [facility] INSURANCE BILL Comment:Ancillary determined the test is not needed. Bacteria UA Few None seen/Few [facility] INSURANCE BILL Yeast UA NOT NEEDED [facility] INSURANCE BILL Comment:Ancillary determined the test is not needed. Trichomonas UA NOT NEEDED [facility] INSURANCE BILL Comment:Ancillary determined the test is not needed. Comment Urine NOT NEEDED [facility] INSURANCE BILL Comment:Ancillary determined the test is not needed. 09/16/2021 4:37 PM ZIGZAG TUNNEL ELASTIC OPERATOR 09/16/2021 Narrative Resulting Agency Comment Lab Testing performed at: [facility] ??[facility] [phone] Anny Serna MD LAB - URINALYSI S ORDERABLES [facility] INSURANCE BILL [address] [place] [address] * (ABNORMAL) URINALYSIS REFLEX TO MICROSCOPIC NO CULTURE (09/16/2021 4:37 PM ZIGZAG TUNNEL ELASTIC OPERATOR) Specific [place] UA 1.017 1.005 - 1.030 [facility] INSURANCE BILL pH UA 5.5 5.0 - 7.5 [facility] INSURANCE BILL Color UA Yellow Yellow [facility] INSURANCE BILL Appearance Clear Clear [facility] INSURANCE BILL Leukocyte UA 1+(A) Negative [facility] INSURANCE BILL Protein UA Trace Negative/Tra ce [facility] INSURANCE BILL Glucose UA [...] Comment:Microscopic was christen cated and was performed. 09/16/2021 4:37 PM ZIGZAG TUNNEL ELASTIC OPERATOR 09/16/2021 Narrative Resulting Agency Comment [facility]: [facility] [address] ??[facility] [phone] Anny Serna MD LAB - URINALYSI S ORDERABLES Performing Organization Address City/[facility]/ZIP Co de Phone Number [facility] INSURANCE BILL [address] [place] [address] * ERYTHROCYTE SEDIMENTATION RATE (09/16/2021 4:37 PM ZIGZAG TUNNEL ELASTIC OPERATOR) Erythrocyte Sedimentation Rate Westergren 22 0 - 40 mm/hr [facility] INSURANCE BILL 09/16/2021 4:37 PM ZIGZAG TUNNEL ELASTIC OPERATOR 09/16/2021 Narrative Resulting Agency Comment Lab Testing performed at: [facility] [address] ??[facility] [phone] Anny Serna MD LAB - HEMATOLOG Y ORDERABLES Performing Organization Address City/[facility]/ZIP Co de Phone Number [facility] INSURANCE BILL [address] [place] [address] * (ABNORMAL) COMPREHENSIVE METABOLIC PANEL (09/16/2021 4:37 PM ZIGZAG TUNNEL ELASTIC OPERATOR) Glucose 99 65 - 99 mg/dL [facility] INSURANCE BILL BUN 11 8 - 27 mg/dL [facility] INSURANCE BILL Creatinine 0.82 0.57 - 1.00 mg/dL [facility] INSURANCE BILL eGFR by MDRD 77 >59 mL/min/1. 73 [facility] INSURANCE BILL eGFR by MDRD 89 >59 mL/min/1. 73 [facility] INSURANCE BILL Comment: In accordance with recommendations from the NKF-ASN Task force, ??[facility] is in the process of updating its eGFR calculation to the ??2020 CKD-EPI creatinine equation that estimates kidney function ??without a race variable. BUN/Creatinine Ratio 13 [facility] INSURANCE BILL Sodium 139 134 - 144 mmol/L [facility] INSURANCE BILL Potassium 4.4 3.5 - 5.2 mmol/L [facility] INSURANCE BILL Chloride 100 96 - 106 mmol/L [facility] INSURANCE BILL CO2 24 20 - 29 mmol/L [facility] INSURANCE BILL Calcium 9.5 8.7 - 10.3 mg/dL [facility] INSURANCE BILL Protein Total 7.0 6.0 - 8.5 g/dL [facility] INSURANCE BILL Albumin 4.1 3.8 - 4.8 g/dL [facility] INSURANCE BILL Globulin Total 2.9 1.5 - 4.5 g/dL [facility] INSURANCE BILL Albumin/Globulin Ratio 1.4 1.2 - 2.2 [facility] INSURANCE BILL Bilirubin Total 0.3 0.0 - 1.2 mg/dL [facility] INSURANCE BILL Alkaline Phosphatase 104 44 - 121 IU/L [facility] INSURANCE BILL Comment:Please note refere nce interval change AST 39 0 - 40 IU/L [facility] INSURANCE BILL ALT 49(H) 0 - 32 IU/L [facility] INSURANCE BILL 09/16/2021 4:37 PM ZIGZAG TUNNEL ELASTIC OPERATOR 09/16/2021 Narrative Resulting Agency Comment Lab Testing performed at: [facility] ??[facility] [phone] Anny Serna MD LAB - CHEMISTRY ORDERABLES [facility] INSURANCE BILL [address] [place] [address] * (ABNORMAL) CBC WITH DIFFERENTIAL (09/16/2021 4:37 PM ZIGZAG TUNNEL ELASTIC OPERATOR) WBC 5.1 3.4 - 10.8 x10E3/uL [facility] INSURANCE BILL RBC 4.61 3.77 - 5.28 x10E6/uL [facility] INSURANCE BILL Hemoglobin 13.2 11.1 - 15.9 g/dL [facility] INSURANCE BILL Hematocrit 40.0 34.0 - 46.6 % [facility] INSURANCE BILL MCV 87 79 - 97 fL [facility] INSURANCE BILL MCH 28.6 26.6 - 33.0 pg [facility] INSURANCE BILL MCHC 33.0 31.5 - 35.7 g/dL [facility] INSURANCE BILL RDW 15.7(H) 11.7 - 15.4 % [facility] INSURANCE BILL Platelet Count 485(H) 150 - 450 x10E3/uL [facility] INSURANCE BILL Granulocytes % 66 Not Estab. % [facility] INSURANCE BILL Lymphocytes % 23 Not Estab. % [facility] INSURANCE BILL Monocytes % 7 Not Estab. % [facility] INSURANCE BILL Eosinophils % 4 Not Estab. % [facility] INSURANCE BILL Basophils % 0 Not Estab. % [facility] INSURANCE BILL Immature Cells NOT NEEDED [facility] INSURANCE BILL Comment:Ancillary determined the test is not needed. Granulocytes Absolute 3.3 1.4 - 7.0 x10E3/uL [facility] INSURANCE BILL Lymphocytes Absolute 1.2 0.7 - 3.1 x10E3/uL [facility] INSURANCE BILL Monocytes Absolute 0.4 0.1 - 0.9 x10E3/uL [facility] INSURANCE BILL Eosinophils Absolute 0.2 0.0 - 0.4 x10E3/uL [facility] INSURANCE BILL Basophils Absolute 0.0 0.0 - 0.2 x10E3/uL [facility] INSURANCE BILL Immature Granulocytes 0 Not Estab. % [facility] INSURANCE BILL Immature Granulocytes Absolute 0.0 0.0 - 0.1 x10E3/uL [facility] INSURANCE BILL nRBC NOT NEEDED [facility] INSURANCE BILL Comment:Ancillary determined the test is not needed. Comment Hematology NOT NEEDED [facility] INSURANCE BILL Comment:Ancillary determined the test is not needed. 09/16/2021 4:37 PM ZIGZAG TUNNEL ELASTIC OPERATOR 09/16/2021 Narrative Resulting Agency Comment Lab Testing performed at: [facility] ??[facility] [phone] Anny Serna MD LAB - HEMATOLOG Y ORDERABLES [facility] INSURANCE BILL [address] [place] [address] documented in this encounter Visit Diagnoses Not on filedocumented in this encounter
--- OUTSIDE RECORDS SUMMARY | 2024-10-16 22:31 | XMS_ITS | Encounter Summary ---
Author Organization [facility] Address [address] [place] [address] Care Team Providers Care Supervisor [employer]rection [employer] Name Role Phone Unavailable Primary Care Provider Unavailabl e Reason for Visit * Reason Onset Date Comments Medication Issue 06/01/2022 Encounter Details Date Type Department Care Team (Late st Contact Info) Description 06/01/2022 Telephone [facility] [address] [facility], [facility] [phone] Saleem Weber MD [facility] [phone] Medication Issue Social History Tobacco Use Types [...] Telephone Encounter - Saleem Weber MD - 06/01/2022 11:09 AM CDT we saw her on 05/05 and wanted her to try injectables but she kept refusing it. So we wanted to see if Rinvoq helps and gave her samples. If it dint help we though we ll convince her again for injectabls or start Azathioprine/ sulfasalazine if she is keen on just po pills. She said she was going on vacation and will let us know once she starts taking Rinvoq. I just called her to check on her as Rinvoq has been denied and went to voice message. Inbox was full, so sent an SMS notification. If she is satisfied with Rinvoq, we can appeal else the above would be the options. documented in this encounter Plan of Treatment Upcoming Encounters Date Type Department Care Team (Late st Contact Info) Description 10/31/2024 10:00 AM MANAGER ENVIRONMENTAL AFFAIRS Office Visit [facility] - Rheumatology [address] [place] [address], [place] [phone] Anotnio Bowles MD [address] [place] [address] [place] [phone] 02/01/2025 9:[address] [facility] [address] [place] [address] Sultana Sullivan MD [facility] [place] [address] documented as of this encounter Visit Diagnoses Not on filedocumented in this encounter
--- OUTSIDE RECORDS SUMMARY | 2024-10-16 22:31 | XMS_ITS | Encounter Summary ---
Author Organization [facility] Address [address] [place] [address] Care Team Providers Care Motor Power Connector Name Role Phone Unavailable Primary Care Provider Unavailabl e Encounter Details Date Type Department Care Team (Late st Contact Info) Description 11/10/2022 11:00 AM WALL TAPER Office Visit [facility] [address] [facility], [facility] [place] [id number] Saleem Weber MD [address] [facility] [place] [address] Rheumatoid arthritis, involving unspecified site, unspecified [...] Coronavirus/COVID-19? No / Unsure 11/10/2022 12:27 PM WALL TAPER documented as of this encounter Last Filed Vital Signs Vital Sign Reading Time Taken Comments Blood Pressure 128/82 11/10/2022 11:14 AM WALL TAPER Pulse 105 11/10/2022 11:14 AM WALL TAPER Temperature 36.6 ??C (97.8 ??F) 11/10/2022 11:[address] Respiratory Rate - - Oxygen Saturation 95% 11/10/2022 11:14 AM WALL TAPER Inhaled Oxygen Concentration - - Weight 51 kg (112 lb 6.4 oz) 11/10/2022 11:14 AM WALL TAPER Height 152.4 cm (5') 11/10/2022 11:14 AM WALL TAPER Body Mass Index 21.95 11/10/2022 11:14 AM WALL TAPER documented in this encounter Patient Instructions * Patient Instructions* Saleem Weber MD - 11/10/2022 12:11 PM WALL TAPER - Follow up in 2-3 months - Labs today - start sulfasalazine 500 mg , 1 tablet twice daily and after ten days do labs. If labs are okay, can increase to 3 tabs twice daily. - Thereafter labs every 8 weeks. If you need to schedule,change or cancel your Rheumatology appointment -at the [facility] ([facility]) at [address] [place] [address], call [phone] or [phone] (option 1) If you choose to get labs or imaging at an outside facility, it is your (as the patient) responsibility to have these results faxed to us at [phone] If you need a refill, please call your Pharmacy first and have them send us a refill request via Fax at [phone]. If you have been given a referral to a new specialist at [facility] and have not received a call to schedule within 1 week, please call [phone] to schedule your visit. If you have been referred to Physical Therapy, but do not receive a call from them to schedule an appointment within 1 week, please call [phone] to schedule your Physical Therapy appointment. You can also utilize the Physical Therapy website at [email or web address] to make an appointment. If you need to leave a message for Dr. Weber you can send her an electronic message via [employer].Her office FAX number is [phone]. If you have an emergency after hours, you can reach the product support consultant Fellow by calling the Customer Field Representative at [phone], but please seek appropriate care at Urgent Care or Emergency Room. TAPER documented in this encounter Progress Notes * Catherine Hoffman MD - 11/10/2022 11:48 AM CST Patient seen and examined with fellow Dr. Weber. Please see note for further details. I confirm history, exam, assessment and plan. In addition I note: Interval history: patient is 62 year old female with Rheumatoid arthritis, previously Dr. Serna's, To day she reports having multiple joint pain. She never started Upadacitinib. Exam: Vitals: 11/10/22 1114 BP: 128/82 Pulse: 105 Temp: 97.8 ??F (36.6 ??C) SpO2: 95% Weight: 51 kg (112 lb 6.4 oz) Height: 1.524 m (5') PIP's T1 bilaterally MCP's T1 S2 bilaterally Left 4th and 5th fingers, unable to raise Wrists T1 bilaterally with decreased ROM Elbows T1 S1 with fixed flexion deformities Shoulders T1 bilaterally with decreased ROM Right knee T1 S1 Mild neck tenderness Heart: RRR Lungs: clear Last labs: 05/05/22, no new labs Assessment/Plan: Dr. Serna's patient Patient is 62 year old female with Seropositive Rheumatoid arthritis, she tried different medicinesin the past. Had LFT elevation with Methotrexate Had head ache with Tofacitinib She is not interested in starting injections She never started Upadacitinib, begin 15 mg daily Discussed various options, she agreed to try Sulfasalazine, will begin 500 mg twice daily Check labs in 10 days if ok, will increase to 1500 mg twice daily May consider adding HCQ She is not interested begin Prednisone Restart Naproxen 500mg twice daily, if labs are ok Check labs to monitor potential toxicity of medicine and disease process F/u in 4 months 11/10/2022 11:48 AM See fellow's note for further details Catherine Hoffman MD TAPER * Saleem Weber MD - 11/10/2022 11:45 AM CST Rheumatology Clinic Consultation Note Patient: Sultana Vincent ( , 1960, 62 year old female) Encounter Date: 11/10/2022 Chief Concern: seropositive RA (+Rf, +CCP, no erosions??in 2020) LCV: 07/07/22 Subjective History of Present Illness: Sultana Vincent??is a 62??year old??female??presenting for follow up of seropositive RA (+Rf, +CCP,no erosions??in 2020) Last clinic visit: 02/03/2022. ?? Interval history: Today: States to have worsening of Hurting on all the joints including hands, neck, shoulders, swelling, fingers, ankles and states and more noticeable in the hands bilaterally. Stiffness all the time, goes away with walking in few mins. Has not started Rinvoq as she is scared to start it . ?? On her last visit, various options were discussed including injectables/ infusions/ TNF agents likeEnbrel, Humira, Cimzia which was re-visited today, risks and benefits discussed with the patient but she continues to deny them. Explained that Rinvoq also belongs to same class of RAKEL inhibitors like Xeljanz but continued to deny it.?? She denies to try steroids for flares.?? She does have dry eyes. Denies rashes, vision issues, raynaud's, ulcers, sores. Current meds takes naproxen??500 mg??bid/ OD, not consistent Vitamin D??50,000 IU??once a week ?? History: During last few visits, there was an extensive conversation between Dr. Serna, Dr. Hurtado about medications. She was??deeply anxious and fearful of injections and infusions. She was adamant to??utilize pills only.??She understood??risks of RAKEL inhibitors but preferred??this over??any injectable orinfusion TNF inhibitor.??They??discussed hcq which is helpful as adjunctive but not monotherapy.??She remained??steadfastly opposed to any needles of any kind. Discussed the increased risk of malignancy and clots with RAKEL inhibitors. She understood, and would rather accept these risks than utilize needles which give her extreme anxiety.? Prior medications:?? [...] and social history: Was working in a [employer], [place] Has 3 sons, no miscarriages Doesn't know if there was any family history, lost parents early. Smoked 1 ppd for >30 years and quit last year 2020 after RA diagnosis.?? Review of Systems: Other systems reviewed and [...] ??? vitamin D, ergocalciferol, (Drisdol) 1.25 MG (04149 UT) capsule, Take 1 (one) capsule by [...] Types: Cigarettes Quit date: 03/10/2021 Years since quittin.6 ??? Smokeless tobacco: Never Vaping Use ??? Vaping Use: Never used Substance and Sexual Activity ??? Alcohol use: Never ??? Drug use: Never ??? Sexual activity: Not Currently Family History: No family history on file. Patient Care Team: No primary care provider on file. No care fast food team member to display Objective Physical Exam BP 128/82 (BP SITE: RIGHT ARM, BP POSITION: SITTING, BP CUFF SIZE: 11) Pulse 105 Temp 97.8 ??F (36.6 ??C) (Oral) Ht 1.524 m (5') Wt 51 kg (112 lb 6.4 oz) SpO2 95% BMI 21.95 kg/m?? GENERAL: NAD HEENT/NECK: White sclerae. Ext ears wnl. No oropharyngeal lesions. No palpable masses. CHEST/LUNGS: Normal work of breathing, CTAB. CARDIOVASCULAR: Regular rhythm, crisp S1/S2, no murmurs. ABDOMEN: S/ND/NT. SKIN/NAILS: No rashes on exposed skin. PSYCH: Alert, appropriately interactive. NEURO: Sensation intact to soft touch. Normal muscle bulk and strength in trunk and limbs. 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 Mild neck tenderness + Labs: Reviewed, including those as noted below No results found for this or any previous visit (from the past 2352 hour(s)). Other Studies: 04/15/22: CMP unremarkable CRP 3.4 ESR 44 CBC unremarkable. Assessment & Recommendations Sultana Vincent??is a 62??year old??female??with longstanding Seropositive RA (+CCP, +RF nonerosive)??for follow up ?? #.??Seropositive RA? Onset??: 07/2021. Diagnosis supported by clinical and serological [...] not try yet. Authorization for Rinvoq denied. Current therapy:??naproxen??500 mg??bid , not consistent. After prolonged discussion about HCQ and SSZ, she agreed to try SSZ. Risks and benefits discussed. Status: Active ?? #.??Osteopenia: Following with PCP ?? #. Drug Toxicity Monitoring - CBC/diff and CMP. She will need standing labs while on SSZ. -??Recommend to be up to date with Cancer screenings??including breast and colonl cancer screening,but needs lung cancer screening given history of tobacco abuse and was asked to follow up with her PCP.? #. Immunosuppression due to drug therapy - Latent infection screen: HBsAb,??HBsAg,??HBcAb,HCV Ab??negative in 07/2021 -??TB quant negative in 07/2021 - Immunizations per PCP: for all patients on immunosuppressive therapy we recommend annual influenza vaccine, COVID19 vaccine, Prevnar, Pneumovax, Shingrix.??Patient denies COVID vaccine.?? - Patient advised to contact clinic in case of any infections or antibiotic use. ?? RECOMMENDATIONS: [] SSZ 500 mg BD for ten days and repeat labs. If labs okay, will increase to 1500 mg BD. [] Continue taking vitamin D 50,000 IU weekly as advised??by PCP [] Labs today, then after ten days of SSZ and thereafter every 8 weeks [] Might later consider adding HCQ [] Recommend to take Naproxen consistently BID. [] Labs as below: - RANULFO panel - TB and Hep screen. ?? #. Follow-up: In 2-3 months or sooner if needed. ?? This patient was seen and staffed with attending Dr. Hoffman. ?? Saleem Weber MD Rheumatology Fellow [facility] Medicine Encounter orders: Orders Placed This Encounter ??? CBC WITH DIFFERENTIAL Standing Status: Future Standing Expiration Date: 11/10/2023 Order Specific Question: Release to patient Answer: Immediate ??? COMPREHENSIVE METABOLIC PANEL Standing Status: Future Standing Expiration Date: 11/10/2023 Order Specific Question: Release to patient Answer: Immediate ??? C-REACTIVE PROTEIN Standing Status: Future Standing Expiration Date: 11/10/2023 Order Specific Question: Release to patient Answer: Immediate ??? ERYTHROCYTE SEDIMENTATION RATE Standing Status: Future Standing Expiration Date: 11/10/2023 Order Specific Question: Release to patient Answer: Immediate ??? HEPATITIS B SURFACE ANTIGEN W RFLX CONFIRMATION Standing Status: Future Standing Expiration Date: 11/10/2023 Order Specific Question: Release to patient Answer: Immediate ??? QUANTIFERON-TB GOLD PLUS 4-TUBE Standing Status: Future Standing Expiration Date: 11/10/2023 Order Specific Question: Release to patient Answer: Immediate ??? HEPATITIS C ANTIBODY Standing Status: Future Standing Expiration Date: 11/10/2023 Order Specific Question: Release to patient Answer: Immediate ??? URINALYSIS W/MICROSCOPIC REFLEX TO CULTURE Standing Status: Future Standing Expiration Date: 11/10/2023 Order Specific Question: Release to patient Answer: Immediate ??? CBC WITH DIFFERENTIAL Please do these labs after ten days of taking sulfasalazine and thereafter every 8 weeks Standing Status: Standing Number of Occurrences: 12 Standing Expiration Date: 12/09/2023 Order Specific Question: Release to patient Answer: Immediate ??? COMPREHENSIVE METABOLIC PANEL Please do these labs after ten days of taking sulfasalazine and thereafter every 8 weeks Standing Status: Standing Number of Occurrences: 12 Standing Expiration Date: 12/09/2023 Order Specific Question: Release to patient Answer: Immediate ??? C-REACTIVE PROTEIN Please do these labs after ten days of taking sulfasalazine and thereafter every 8 weeks Standing Status: Standing Number of Occurrences: 12 Standing Expiration Date: 12/09/2023 Order Specific Question: Release to patient Answer: Immediate ??? ERYTHROCYTE SEDIMENTATION RATE Please do these labs after ten days of taking sulfasalazine and thereafter every 8 weeks Standing Status: Standing Number of Occurrences: 12 Standing Expiration Date: 12/09/2023 Order Specific Question: Release to patient Answer: Immediate ??? URINALYSIS W/MICROSCOPIC REFLEX TO CULTURE Please do these labs after ten days of taking sulfasalazine and thereafter every 8 weeks Standing Status: Standing Number of Occurrences: 12 Standing Expiration Date: 12/09/2023 Order Specific Question: Release to patient Answer: Immediate ??? RANULFO BLOOD SCREEN W/REFLEX TITER Standing Status: Future Standing Expiration Date: 11/10/2023 Order Specific Question: Release to patient Answer: Immediate ??? CHROMATIN ANTIBODY Standing Status: Future Standing Expiration Date: 11/10/2023 Order Specific Question: Release to patient Answer: Immediate ??? DNA ANTIBODY DOUBLE STRANDED Standing Status: Future Standing Expiration Date: 11/10/2023 Order Specific Question: Release to patient Answer: Immediate ??? COLLAR FELLER ANTIBODY Standing Status: Future Standing Expiration Date: 11/10/2023 Order Specific Question: Release to patient Answer: Immediate ??? SCOTT (SM) ANTIBODY ANIA Standing Status: Future Standing Expiration Date: 11/10/2023 Order Specific Question: Release to patient Answer: Immediate ??? SCLERODERMA 70 (SCL) ANTIBODY Standing Status: Future Standing Expiration Date: 11/10/2023 Order Specific Question: Release to patient Answer: Immediate ??? SS-A (SJOGREN'S) ANTIBODY Standing Status: Future Standing Expiration Date: 11/10/2023 Order Specific Question: Release to patient Answer: Immediate ??? SS-B (SJOGREN'S) ANTIBODY Standing Status: Future Standing Expiration Date: 11/10/2023 Order Specific Question: Release to patient Answer: Immediate ??? COMPLEMENT C3 Standing Status: Future Standing Expiration Date: 11/10/2023 Order Specific Question: Release to patient Answer: Immediate ??? COMPLEMENT C4 Standing Status: Future Standing Expiration Date: 11/10/2023 Order Specific Question: Release to patient Answer: Immediate ??? HISTONE ANTIBODY Standing Status: Future Standing Expiration Date: 12/05/2023 Order Specific Question: Release to patient Answer: Immediate ??? COMPLEMENT TOTAL Standing Status: Future Standing Expiration Date: 12/05/2023 Order Specific Question: Release to patient Answer: Immediate ??? DNA ANTIBODY DS CRITHIDIA TITER Standing Status: Future Standing Expiration Date: 12/05/2023 Order Specific Question: Release to patient Answer: Immediate ??? sulfaSALAzine (Azulfidine) 500 MG tablet Sig: Please take 1 pill twice daily for ten days and repeat labs. If labs are okay, then increase to 3 tabs twice daily Dispense: 180 tablet Refill: 2 TAPER documented in this encounter Plan of Treatment Upcoming Encounters Date Type Department Care Team (Late st Contact Info) Description 10/31/2024 10:00 AM WALL TAPER Office Visit [facility] - Rheumatology [address] [place] [address], [place] [phone] Antonio Bowles MD [address] [place] [address] [place] [phone] 02/01/2025 9:00 AM CDT Appointment [facility] [address] [place] [address] Sultana Sullivan MD [address] [place] [phone] documented as of this encounter Procedures Procedure Name Priority Date/Time Associated Diagnosis Comments C-REACTIVE PROTEIN Routine 11/22/2022 3: 44 PM WALL TAPER Rheumatoid arthritis, involving unspecified site, unspecified whether rheumatoid factor present (HCC) Therapeutic drug monitoring ERYTHROCYTE SEDIMENTATION RATE Routine 11/22/2022 3:44 PM WALL TAPER Rheumatoid arthritis, involving unspecified site, unspecified whether rheumatoid factor present (HCC) Therapeutic drug monitoring CBC W AUTO DIFFERENTIAL Routine 11/22/2022 3:44 PM WALL TAPER Rheumatoid arthritis, involving unspecified site, unspecified whether rheumatoid factor present (HCC) Therapeutic drug monitoring COMPREHENSIVE METABOLIC PANEL Routine 11/22/2022 3:44 PM WALL TAPER Rheumatoid arthritis, involving unspecified site, unspecified whether rheumatoid factor present (HCC) Therapeutic drug monitoring documented in this encounter Results * (ABNORMAL) ERYTHROCYTE SEDIMENTATION RATE (11/22/2022 3:44 PM WALL TAPER) Erythrocyte Sedimentation Rate Westergren 110(H) 0 - 40 mm/hr [facility] INSURANCE BILL Blood BLOOD SPECIMEN / Unknown 11/22/2022 3:44 PM WALL TAPER 11/22/2022 Narrative Resulting Agency Comment [facility] [address] [facility] ??[facility] [phone] Catherine Hoffman MD LAB - HEMATOLO GY ORDERABLES Performing Organization Address [facility] de Phone Number [facility] INSURANCE BILL [address] [place] [address] * (ABNORMAL) C-REACTIVE PROTEIN (11/22/2022 3:44 PM WALL TAPER) Pathologist [facility] C-Reactive Protein 115(H) 0 - 10 mg/L [facility] INSURANCE BILL Blood BLOOD SPECIMEN / Unknown 11/22/2022 3:44 PM WALL TAPER 11/22/2022 Narrative Resulting Agency Comment Lab Testing performed at: [address] ??[facility] [phone] Catherine Hoffman MD LAB - CHEMISTR Y ORDERABLES Performing Organization Address [facility] de Phone Number [facility] INSURANCE BILL [address] [place] [address] * (ABNORMAL) COMPREHENSIVE METABOLIC PANEL (11/22/2022 3:44 PM WALL TAPER) Pathologist [facility] Glucose 94 70 - 99 mg/dL [facility] INSURANCE BILL BUN 9 8 - 27 mg/dL [facility] INSURANCE BILL Creatinine 0.59 0.57 - 1.00 mg/dL [facility] INSURANCE BILL eGFR by CKD-EPI 101 >59 mL/min/1.7 3 [facility] INSURANCE BILL BUN/Creatinine Ratio 15 12 - 28 [facility] INSURANCE BILL Sodium 141 134 - 144 mmol/L [facility] INSURANCE BILL Potassium 4.7 3.5 - 5.2 mmol/L [facility] INSURANCE BILL Chloride 104 96 - 106 mmol/L [facility] INSURANCE BILL CO2 24 20 - 29 mmol/L [facility] INSURANCE BILL Calcium 9.2 8.7 - 10.3 mg/dL [facility] INSURANCE BILL Protein Total 7.1 6.0 - 8.5 g/dL [facility] INSURANCE BILL Albumin 3.5(L) 3.8 - 4.8 g/dL [facility] INSURANCE BILL Globulin Total 3.6 1.5 - 4.5 g/dL [facility] INSURANCE BILL Albumin/Globulin Ratio 1.0(L) 1.2 - 2.2 [facility] INSURANCE BILL Bilirubin Total <0.2 0.0 - 1.2 mg/dL [facility] INSURANCE BILL Alkaline Phosphatase 71 44 - 121 IU/L [facility] INSURANCE BILL AST 10 0 - 40 IU/L [facility] INSURANCE BILL ALT 5 0 - 32 IU/L [facility] INSURANCE BILL Blood BLOOD SPECIMEN / Unknown 11/22/2022 3:44 PM WALL TAPER 11/22/2022 Narrative Resulting Agency Comment Lab Testing performed at: [address] ??[facility] [phone] Catherine Hoffman MD LAB - CHEMISTR Y ORDERABLES [facility] INSURANCE BILL [address] [place] [address] * (ABNORMAL) CBC WITH DIFFERENTIAL (11/22/2022 3:44 PM WALL TAPER) WBC 7.5 3.4 - 10.8 x10E3/uL [facility] INSURANCE BILL RBC 4.22 3.77 - 5.28 x10E6/uL [facility] INSURANCE BILL Hemoglobin 11.2 11.1 - 15.9 g/dL [facility] INSURANCE BILL Hematocrit 34.8 34.0 - 46.6 % [facility] INSURANCE BILL MCV 83 79 - 97 fL [facility] INSURANCE BILL MCH 26.5(L) 26.6 - 33.0 pg [facility] INSURANCE BILL MCHC 32.2 31.5 - 35.7 g/dL [facility] INSURANCE BILL RDW 13.7 11.7 - 15.4 % [facility] INSURANCE BILL Platelet Count 755(H) 150 - 450 x10E3/uL [facility] INSURANCE BILL Granulocytes % 62 Not Estab. % [facility] INSURANCE BILL Lymphocytes % 26 Not Estab. % [facility] INSURANCE BILL Monocytes % 9 Not Estab. % [facility] INSURANCE BILL Eosinophils % 3 Not Estab. % [facility] INSURANCE BILL Basophils % 0 Not Estab. % [facility] INSURANCE BILL Immature Cells NOT AVAILABLE [facility] INSURANCE BILL Comment:Result cannot be obt ained for this observation. Granulocytes Absolute 4.6 1.4 - 7.0 x10E3/uL [facility] INSURANCE BILL Lymphocytes Absolute 2.0 0.7 - 3.1 x10E3/uL [facility] INSURANCE BILL Monocytes Absolute 0.7 0.1 - 0.9 x10E3/uL [facility] INSURANCE BILL [...] this observation. Blood BLOOD SPECIMEN / Unknown 11/22/2022 3:44 PM WALL TAPER 11/22/2022 Narrative Resulting Agency Comment Lab Testing performed at: [address] ??[facility] [phone] Catherine Hoffman MD LAB - HEMATOLO GY ORDERABLES [facility] INSURANCE BILL [address] [place] [address] * DNA ANTIBODY DS CRITHIDIA TITER (11/10/2022 1:19 PM WALL TAPER) [facility] dsDNA Antibody IgG <1:10 <1:10 2022 12:15 PM WALL TAPER [facility] ([facility]) Comment: INTERPRETIVE INFORMATION: Double-Stranded DNA (dsDNA) [...] recommendations for testing may be found at http://[email or web address]/Topics/[email or web address]/[email or web address]/i ndex.html. Performed By: [employer] [address] [place] [address] Wagon Drill Operator: Eric Tay MD, PhD Blood BLOOD SPECIMEN / Unknown Lab Venipuncture / Unknown 11/10/2022 1:19 PM WALL TAPER 11/10/2022 1:57 PM WALL TAPER Catherine Hoffman MD LAB - SEROLOGY ORDERABLES [facility] [employer] ([facility]) [address] [place] [address] * (ABNORMAL) HISTONE ANTIBODY (11/10/2022 1:19 PM WALL TAPER) [facility] Histone Antibody IgG 1.6(H) 0.0 - 0.9 Units 11/12/2022 6:38 AM WALL TAPER [facility] [employer] ([facility]) Comment: INTERPRETIVE INFORMATION: Histone Ab, IgG ??0.9 Units or less ............ Negative ??1.0 - 1.5 Units .............. Weak Positive ??1.6 - 2.5 Units .............. Moderate Positive ??2.6 Units or greater ......... Strong Positive Performed By: [employer] [address] [place] [address] Wagon Drill Operator: Eric Tay MD, PhD Blood BLOOD SPECIMEN / Unknown Lab Venipuncture / Unknown 11/10/2022 1:19 PM WALL TAPER 11/10/2022 1:58 PM WALL TAPER Catherine Hoffman MD LAB - CHEMISTR Y ORDERABLES [facility] [employer] [facility]) [address] * COMPLEMENT C4 (11/10/2022 1:19 PM WALL TAPER) Complement C4 24 15 - 57 mg/dL 11/10/2022 2:25 PM WALL TAPER [facility] Blood BLOOD SPECIMEN / Unknown Lab Venipuncture / Unknown 11/10/2022 1:19 PM WALL TAPER 11/10/2022 1:58 PM WALL TAPER Catherine Hoffman MD LAB - SEROLOGY ORDERABLES [facility] [address] [place] [phone], [facility] [phone] * COMPLEMENT C3 (11/10/2022 1:19 PM WALL TAPER) Complement C3 147 82 - 193 mg/dL 11/10/2022 2:25 PM WALL TAPER [facility] Blood BLOOD SPECIMEN / Unknown Lab Venipuncture / Unknown 11/10/2022 1:19 PM WALL TAPER 11/10/2022 1:58 PM WALL TAPER Catherine Hoffman MD LAB - CHEMISTR Y ORDERABLES Performing Organization Address City/[facility]/ZIP Co de Phone Number [address] [address], [facility] [phone] * SS-B (SJOGREN'S) ANTIBODY (11/10/2022 1:19 PM WALL TAPER) SS-B Antibody 0 0 - 40 AU/mL 11/12/2022 6:25 AM WALL TAPER [employer] ([facility]) Comment: INTERPRETIVE INFORMATION: SSB ([place]) (ANIA) [...] (PSS) also have this antibody. Performed By: [employer] [address] [place] [address] Wagon Drill Operator: Eric Tay MD, PhD Blood BLOOD SPECIMEN / Unknown Lab Venipuncture / Unknown 11/10/2022 1:19 PM WALL TAPER 11/10/2022 1:58 PM WALL TAPER Catherine Hoffman MD LAB - CHEMISTR Y ORDERABLES [employer] ([facility]) [address] [place] [address], [facility] * SCLERODERMA 70 (SCL) ANTIBODY (11/10/2022 1:19 PM WALL TAPER) Pathologist [facility] SCL-70 Antibody 11 0 - 40 AU/mL 11/11/2022 11:57 PM WALL TAPER [facility] [employer]™ ([facility]) Comment: INTERPRETIVE INFORMATION: Scleroderma (Scl-70) (ANIA) Ab, IgG ??29 AU/mL or Less ............. Negative ??30 - 40 AU/mL ................ Equivocal ??41 AU/mL or Greater .......... Positive The presence of Scl-70 antibodies (also referred to as topoisomerase I, fredis-I or WILL) is considered diagnostic for systemic sclerosis (SSc). Scl-70 antibodies alone are detected in about 20 percent of SSc patients and are associated with the diffuse form of the disease, which may include specific organ involvement and poor prognosis. Scl-70 antibodies have also been reported in a varying percentage of patients with systemic lupus erythematosus (SLE). Scl-70 (fredis-1) is a DNA binding protein and anti-DNA/DNA complexes in the sera of SLE patients may bind to fredis-I, leading to a false-positive result. The presence [...] testing for centromere, RNA polymerase III and U3-COLLAR FELLER, PM/Scl, or Th/To antibodies. Performed By: [employer] [address] [place] [address] Wagon Drill Operator: Eric Tay MD, PhD Blood BLOOD SPECIMEN / Unknown Lab Venipuncture / Unknown 11/10/2022 1:19 PM WALL TAPER 11/10/2022 1:57 PM WALL TAPER Catherine Hoffman MD LAB - CHEMISTR Y ORDERABLES Performing Organization Address City/[facility]/ZIP Co de Phone Number [facility]) [address] [place] [address], [facility] * SCOTT (SM) ANTIBODY ANIA (11/10/2022 1:19 PM WALL TAPER) Scott (ANIA) Antibody 0 0 - 40 AU/mL 11/12/2022 6:25 AM WALL TAPER [facility] ([facility]) Comment: INTERPRETIVE INFORMATION: Scott (ANIA) Antibody, [...] associations with SLE clinical manifestations. Performed By: [employer] [address] [place] [address] Wagon Drill Operator: Eric Tay MD, PhD Blood BLOOD SPECIMEN / Unknown Lab Venipuncture / Unknown 11/10/2022 1:19 PM WALL TAPER 11/10/2022 1:58 PM WALL TAPER Catherine Hoffman MD LAB - CHEMISTR Y ORDERABLES [employer] ([facility]) [address] * DNA ANTIBODY DOUBLE STRANDED (11/10/2022 1:19 PM WALL TAPER) dsDNA Antibody 22 0 - 24 IU 11/11/2022 11:34 PM WALL TAPER [employer] ([facility]) Comment: INTERPRETIVE INFORMATION: Double-Stranded DNA (dsDNA) Ab IgG RENE ??24 IU or less........Negative ??25-30 IU.............Borderline Positive ??30-60 IU.............Low Positive ??60-200 IU............Positive ??201 IU or greater....Strong Positive Positivity for anti-double stranded DNA (anti-dsDNA) IgG antibody is a diagnostic criterion of systemic lupus erythematosus (SLE). Specimens are initially screened by enzyme-linked immunosorbent assay (RENE). If ordered as reflex ([id number]), positive RENE results (>24 IU) will be [...] recommendations for testing may be found at [email or web address]. Performed By: [employer] [address] [place] [address] Wagon Drill Operator: Eric Tay MD, PhD Blood BLOOD SPECIMEN / Unknown Lab Venipuncture / Unknown 11/10/2022 1:19 PM WALL TAPER 11/10/2022 1:58 PM WALL TAPER Catherine Hoffman MD LAB - HEMATOLO GY ORDERABLES [employer] ([facility]) [address] [place] [address], [facility] * (ABNORMAL) CHROMATIN ANTIBODY (11/10/2022 1:19 PM WALL TAPER) Pathologist [facility] Chromatin Antibody 56(H) 0 - 19 Units 11/15/2022 5:24 PM WALL TAPER [facility] [employer]Flow™ ([facility]) Comment: INTERPRETIVE INFORMATION: Chromatin Antibody, IgG ??19 Units or less: Negative ??20 - 60 Units: Moderate Positive ??61 Units or greater: Strong Positive The presence of anti-chromatin antibodies may be useful in the diagnosis of systemic lupus erythematosus (SLE) or drug-induced lupus (DIL) and have been reported to be predictive of lupus nephritis, especially when antibody levels are high. Performed By: [employer] [address] [place] [address] Wagon Drill Operator: Eric Tay MD, PhD Blood BLOOD SPECIMEN / Unknown Lab Venipuncture / Unknown 11/10/2022 1:19 PM WALL TAPER 11/10/2022 1:57 PM WALL TAPER Catherine Hoffman MD LAB - SEROLOGY ORDERABLES Performing Organization Address City/State/[facility] Co de Phone Number [facility]) [address] [place] [address], [facility] * (ABNORMAL) RANULFO BLOOD SCREEN W/REFLEX TITER (11/10/2022 1:19 PM WALL TAPER) [facility] RANULFO IgG Detected (A) None Detected 11/11/2022 11:44 PM WALL TAPER [facility] ([facility]) Comment: Antibodies to Anti-Nuclear Antibodies (RANULFO) [...] dsDNA, histones, SS-A (Ro), SS-B (La), Scott, Scott/COLLAR FELLER, Scl-70, Lucrecia-1, centromeric proteins, other antigens extracted from the HEp-2 cell nucleus. RANULFO RENE assays have been reported to have lower sensitivities than RANULFO IFA for systemic autoimmune rheumatic diseases (SARD). Negative results do not necessarily rule out SARD. Performed By: [employer] [address] [place] [address] Wagon Drill Operator: Eric Tay MD, PhD Blood BLOOD SPECIMEN / Unknown Lab Venipuncture / Unknown 11/10/2022 1:19 PM WALL TAPER 11/10/2022 1:58 PM WALL TAPER Catherine Hoffman MD LAB - CHEMISTR Y ORDERABLES Performing Organization Address City/[facility]/ZIP Co de Phone Number [facility]) [address] [place] [address] * HEPATITIS C ANTIBODY (11/10/2022 1:19 PM WALL TAPER) [facility] Hepatitis C Antibody Non-react sergio Non-reac tive 11/10/2022 4:15 PM WALL TAPER [facility] Comment:Hepatitis C Antibody screen [...] Lab Venipuncture / Unknown 11/10/2022 1:19 PM WALL TAPER 11/10/2022 1:56 PM WALL TAPER Catherine Hoffman MD LAB - CHEMISTR Y ORDERABLES Performing Organization Address City/[facility]/ZIP Co de Phone Number [facility] [address] [address], [facility] [phone] * QUANTIFERON-TB GOLD PLUS 4-TUBE (11/10/2022 1:19 PM WALL TAPER) [facility] QuantiFERON NIL 0.02 IU/mL 12:41 AM WALL TAPER [employer] ([facility]) Comment: Performed By: [employer] [address] [place] [address] Wagon Drill Operator: Eric Tay MD, PhD QuantiFERON TB Gold Plus Negative Negative 11/13/2022 12:41 AM WALL TAPER [employer] ([facility]) Comment: Interpretive Data: Quantiferon TB Gold [...] Mycobacterium tuberculosis Infection --- [place], 2010 (http://www.cdc.gov/mmwr/preview/mmwrhtml/aj1165l7.htm), for more information concerning test performance in low-prevalence populations and use in occupational screening. QuantiFERON Plus TB1 Minus NIL 0.00 0.00 - 0.34 IU/mL 11/13/2022 12:41 AM WALL TAPER [facility] [employer]~Flow™ ([facility]) QuantiFERON Plus TB2 Minus NIL 0.00 0.00 - 0.34 IU/mL 11/13/2022 12:41 AM WALL TAPER [employer] ([facility]) QuantiFERON Mitogen Minus NIL 3.34 IU/mL 11/13/2022 12:41 AM WALL TAPER [facility]) Blood BLOOD SPECIMEN / Unknown Lab Venipuncture / Unknown 11/10/2022 1:19 PM WALL TAPER 11/10/2022 1:54 PM WALL TAPER Catherine Hoffman MD LAB - CHEMISTR Y ORDERABLES [facility] [employer]Flow™ [facility]) [address] [place] [id number] * HEPATITIS B SURFACE ANTIGEN W RFLX CONFIRMATION (11/10/2022 1:19 PM WALL TAPER) Hepatitis B Virus Surface Antigen Non-reacti ve Non-reacti ve 11/10/2022 4:15 PM WALL TAPER [facility] Blood BLOOD SPECIMEN / Unknown Lab Venipuncture / Unknown 11/10/2022 1:19 PM WALL TAPER 11/10/2022 1:56 PM WALL TAPER Catherine Hoffman MD LAB - CHEMISTR Y ORDERABLES Performing Organization Address City/[facility]/ZIP Co de Phone Number [address] [address], [facility] [phone] * (ABNORMAL) ERYTHROCYTE SEDIMENTATION RATE (11/10/2022 1:19 PM WALL TAPER) Erythrocyte Sedimentation Rate Westergren >130(H) 0 - 30 MM/HR 11/10/2022 2:12 PM WALL TAPER [facility] Blood BLOOD SPECIMEN / Unknown Lab Venipuncture / Unknown 11/10/2022 1:19 PM WALL TAPER 11/10/2022 1:58 PM WALL TAPER Catherine Hoffman MD LAB - HEMATOLO GY ORDERABLES Performing Organization Address [facility]/ZIP Co de Phone Number [address] [address], [place] [phone] * (ABNORMAL) C-REACTIVE PROTEIN (11/10/2022 1:19 PM WALL TAPER) C-Reactive Protein 10.2(H) <=0.5 mg/dL 11/10/2022 3:55 PM WALL TAPER [facility] Blood BLOOD SPECIMEN / Unknown Lab Venipuncture / Unknown 11/10/2022 1:19 PM WALL TAPER 11/10/2022 1:56 PM WALL TAPER Catherine Hoffman MD LAB - CHEMISTR Y ORDERABLES Performing Organization Address [facility]/ZIP Co de Phone Number [address] [address], [place] [phone] * (ABNORMAL) COMPREHENSIVE METABOLIC PANEL (11/10/2022 1:19 PM WALL TAPER) BUN 15 7 - 26 mg/dL 11/10/2022 2:25 PM [facility] Creatinine 0.55(L) 0.56 - 0.96 mg/dL 11/10/2022 2:25 PM [facility] Sodium 137 136 - 145 mmol/L 11/10/2022 2:25 PM [facility] Potassium 4.3 3.5 - 4.5 mmol/L 11/10/2022 2:25 PM [facility] Chloride 104 98 - 107 mmol/L 11/10/2022 2:25 PM [facility] CO2 21(L) 22 - 29 mmol/L 11/10/2022 2:25 PM [facility] Glucose 97 70 - 115 mg/dL 11/10/2022 2:25 PM [facility] Calcium 9.7 8.4 - 10.2 mg/dL 11/10/2022 2:25 PM [facility] Protein Total 8.2 6.0 - 8.3 g/dL 11/10/2022 2:25 PM [facility] Albumin 2.9(L) 3.4 - 5.0 g/dL 11/10/2022 2:25 PM [facility] Bilirubin Total 0.3 0.2 - 1.2 mg/dL 11/10/2022 2:25 PM [facility] Alkaline Phosphatase 61 40 - 150 U/L 11/10/2022 2:25 PM [facility] ALT <5(L) 5 - 55 U/L 11/10/2022 2:25 PM [facility] AST 15 5 - 34 U/L 11/10/2022 2:25 PM [facility] Anion Gap 16 8 - 18 11/10/2022 2:25 PM [facility] BUN/Creatinine Ratio 27(H) 7 - 23 11/10/2022 2:25 PM [facility] Osmolality Calculated 285 270 - 300 mOsm/kg 11/10/2022 2:25 PM [facility] Albumin/Globulin Ratio 0.5(L) 1.1 - 2.3 11/10/2022 2:25 PM [facility] eGFR by CKD-EPI >90 >=90 mL/min/1.7 3 m2 11/10/2022 2:25 PM [facility] Blood BLOOD SPECIMEN / Unknown Lab Venipuncture / Unknown 11/10/2022 1:19 PM WALL TAPER 11/10/2022 1:58 PM WALL TAPER Catherine Hoffman MD LAB - CHEMISTR Y ORDERABLES [facility] [address] [place] [address], [facility] [phone] * (ABNORMAL) CBC WITH DIFFERENTIAL (11/10/2022 1:19 PM WALL TAPER) WBC 7.4 3.5 - 10.5 10? 3 /uL 11/10/2022 2:04 PM [facility] RBC 4.59 3.80 - 5.20 10? 6 /uL 11/10/2022 2:04 PM [facility] Hemoglobin 11.8(L) 12.0 - 15.6 g/dL 11/10/2022 2:04 PM [facility] Hematocrit 38.6 35.0 - 45.0 % 11/10/2022 2:04 PM [facility] MCV 84.1 80.7 - 98.3 fL 11/10/2022 2:04 PM [facility] MCH 25.7(L) 26.7 - 34.0 pg 11/10/2022 2:04 PM [facility] MCHC 30.6(L) 30.8 - 35.9 g/dL 11/10/2022 2:04 PM [facility] RDW-SD 44.5 36.0 - 50.0 fL 11/10/2022 2:04 PM [facility] RDW-CV 14.6 11.2 - 14.8 % 11/10/2022 2:04 PM [facility] Platelet Count 665(H) 150 - 400 10? 3 /uL 11/10/2022 2:04 PM [facility] MPV 9.3(L) 9.4 - 12.9 fL 11/10/2022 2:04 PM [facility] nRBC Absolute 0.00 0 10? 3 /uL 11/10/2022 2:04 PM [facility] nRBC Auto 0.0 0 /100 WBC 11/10/2022 2:04 PM [facility] Neutrophils % 69.9 35.0 - 70.0 % 11/10/2022 2:04 PM [facility] Lymphocytes % 19.7(L) 20.0 - 43.0 % 11/10/2022 2:04 PM [facility] Monocytes % 7.3 5.0 - 13.0 % 11/10/2022 2:04 PM [facility] Eosinophils % 2.3 0.0 - 6.0 % 11/10/2022 2:04 PM [facility] Basophil % 0.4 0.0 - 2.0 % 11/10/2022 2:04 PM [facility] Neutrophils Absolute 5.19 1.60 - 7.00 10? 3 /uL 11/10/2022 2:04 PM [facility] Lymphocyte Absolute 1.46 1.10 - 3.90 10? 3 /uL 11/10/2022 2:04 PM [facility] Monocytes Absolute 0.54 0.26 - 1.07 10? 3 /uL 11/10/2022 2:04 PM [facility] Eosinophils Absolute 0.17 0.00 - 0.47 10? 3 /uL 11/10/2022 2:04 PM [facility] Basophils Absolute 0.03 0.00 - 0.08 10? 3 /uL 11/10/2022 2:04 PM [facility] Immature Granulocytes % 0.4 0.0 - 1.0 % 11/10/2022 2:04 PM [facility] Immature Granulocytes Absolute 0.03 11/10/2022 2:04 PM [facility] Blood BLOOD SPECIMEN / Unknown Lab Venipuncture / Unknown 11/10/2022 1:19 PM WALL TAPER 11/10/2022 1:58 PM WALL TAPER Catherine Hoffman MD LAB - HEMATOLO GY ORDERABLES [facility] [address] [place] [address], [facility] [phone] documented in this encounter Visit Diagnoses Diagnosis Rheumatoid arthritis, involving unspecified site, unspecified whether rheumatoid factor present (HCC)- Primary Arthralgia, unspecified joint Therapeutic drug monitoring Encounter for therapeutic drug monitoring documented in this encounter
--- OUTSIDE RECORDS SUMMARY | 2024-10-16 22:31 | XMS_ITS | Encounter Summary ---
Author Organization [facility] Address [address] [place] [address] Care Team Providers Care Machine Boss Name Role Phone Provider, Abstract Primary Care Provider Unavail able Encounter Details Date Type Department Care Team (Late st Contact Info) Description 10/31/2019 Orders Only [facility] - Pedro Luis [address] [facility] [address] [place] [address] Ifeanyi Marquez MD [address] [facility] [address] [place] [address] Secondary thrombocytosis Social History Tobacco Use Types Packs/Day Years [...] as of this encounter Visit Diagnoses Diagnosis Secondary thrombocytosis Essential thrombocythemia documented in this encounter Care Teams Machine Boss Relationship Specialty Start Date End Date Provider, Abstract NO ADDRESS ON FILE PCP - General 02/27/19 documented as of this encounter
--- OUTSIDE RECORDS SUMMARY | 2024-10-16 22:31 | XMS_ITS | Encounter Summary ---
Author Organization [facility] Address [address] [place] [address] Care Team Providers Care Customer Engagement Analyst Name Role Phone Provider, Abstract Primary Care Provider Unavail able Reason for Visit * Reason Comments Follow Up Results Headache Encounter Details Date Type Department Care Team (Late st Contact Info) Description 05/04/2019 9:15 AM CDT Office Visit [facility] Oncology and Hematology - Jay [address] [facility] [address] [place] [address] Ifeanyi Marquez MD [address] [facility] [address] [place] [address] Secondary thrombocytosis (Primary Dx); Encounter for screening for lung cancer Social History Tobacco Use Types Packs/Day Years [...] 05/04/2019 9:26 AM CD T Respiratory Rate - - Oxygen Saturation 98% 05/04/2019 9:26 AM CDT Inhaled Oxygen Concentration - - Weight 46.2 kg (101 lb 14.4 oz) 05/04/2019 9:26 AM CDT Height 152.4 cm (5') 05/04/2019 9:26 AM CDT Body Mass Index 19.9 05/04/2019 9:26 AM CDT documented in this encounter Progress Notes * Ifeanyi Marquez MD - 05/04/2019 9:57 AM CDT HEMATOLOGY / ONCOLOGY PROGRESS NOTE Patient Identification: Name: Sultana Vincent Age: 59 y.o. Sex: female : 1960 Subjective: HPI This is a pleasant 67-year-old female who has been in good health other than history of smoking 3 packs of cigarettes per week for more than 40 years duration. She had labs done during the routine visit with her primary care physician on February 05, 2019 showed WBC 7.1 hemoglobin 14.5 and platelet of 428,000. Patient came into the office for follow-up visit. She denies any chest pain and shortness of breath. She has some cough likely secondary to sinus congestion. She continues to smoke. No other new complaints today. Interval History: No change in interval history. Review of system Constitutional: No fever; no night sweats; no anorexia; no weight loss; no fatique Respiratory: No shortness of breath; no pleuritic chest pain; no cough; no hemoptysis Cardiac: No cardiac-like chest pain; no palpitations; no orthopnea; no PND; no BLACK GI: No abdominal pain; no nausea; no vomiting; no diarrhea; no hematochezia; no melena Musculosketetal: no bone pain; no arthralgia; no joint swelling; no myalgia; Neuro: No headache; no change in vision; no sensory changes; no muscle weakness; no confusion; no seizures Ext no edema 12 point review system was reviewed Objective: Vital signs in last 24 hours: As per nursing note Exam: Gen: NAD Lungs: Clear Cardiac: S1 and S2 without murmurs or gallops Abd: Soft, tender, no hepatomegally, no masses Extr: No LE edema Examination as above Scheduled Meds:@MEDSSCHEDULED@ Continuous Infusions:@MEDSINFUSIONS@ Data Review: [facility] Labs from March 30 showed WBC 7.0 hemoglobin 13.2 platelet 296,000 neutrophils 57% lymphocytes 31% creatinine 1.0 C-reactive protein 0.6 @IMAGEIMP@ Assessment: Plan: There are no active problems to display for this patient. Mild thrombocytosis. Likely reactive. Panchito 2 mutation came back negative. Platelet count has improved. Clinically she remains asymptomatic. She will continue baby aspirin. I will check her back in 6 months with repeat labs. Lung cancer screening. I will order low-dose CT chest for lung cancer screening. Patient is a 59-year-old female who has been a smoking for 45 years duration for 1 to half pack per day. TOBACCO COUNSELING She was counseled to discontinue tobacco use. 05/04/2019 Ifeanyi Marquez MD documented in this encounter Plan of Treatment Scheduled Orders Name Type Priority Associated Diagnoses Orde r Schedule CBC WITH DIFFERENTIAL Lab Routine Secondary thrombocytosis Expected: 11/02/2019, Expires: 05/03/2020 documented as of this encounter Visit Diagnoses Diagnosis Secondary thrombocytosis- Primary Essential thrombocythemia Encounter for screening for lung cancer documented in this encounter Care Teams Customer Engagement Analyst Relationship Specialty Start Date End Date Provider, Abstract NO ADDRESS ON FILE PCP - General 02/27/19 documented as of this encounter
--- OUTSIDE RECORDS SUMMARY | 2024-10-16 22:31 | XMS_ITS | Encounter Summary ---
Author Organization [facility] Address [address] [facility] [place] [address] Care Team Providers Care Aviation Electronic Warfare Operator Name Role Phone Unavailable Primary Care Provider Unavailabl e Reason for Visit * Reason Onset Date Comments Medication Management 03/29/2022 Encounter Details Date Type Department Care Team ([facility] st Contact Info) Description 03/29/2022 Telephone [facility] [address] [facility] [place] [phone] Alma Hurtado MD [address] [place] [address] Medication Management Social History Tobacco Use Types Packs/Day Years [...] Telephone Encounter - Alma Hurtado MD - 03/29/2022 1:12 PM CDT Discussed with Dr Serna and we will switch from Xeljanz to Rinvoq due to undesirable side effects. Called patient x 2, unable to leave a voicemail. We strongly feel patient should be on a TNFi or other injectable medicine, however patient has remained unwilling and anxious regarding needles. Alma Hurtado Rheumatology Fellow documented in this encounter Plan of Treatment Upcoming Encounters Date Type Department Care Team (Late st Contact Info) Description 10/31/2024 10:00 AM OIL SALES AND SERVICE REP Office Visit [facility] - Rheumatology [address] [place] [address], [facility] [place] [address] Antonio Bowles MD [address] [place] [address] [place] [phone] 02/01/2025 9:00 AM CDT Appointment [facility] [address] [place] [address] Sultana Sullivan MD [address] [place] [phone] documented as of this encounter Visit Diagnoses Diagnosis Rheumatoid arthritis, involving unspecified site, unspecified whether rheumatoid factor present ([facility])- Primary Arthralgia, unspecified joint Therapeutic drug monitoring Encounter for therapeutic drug monitoring shelter 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 High risk medications (not anticoagulants) long-term use Encounter for long-term (current) use of other medications documented in this encounter
--- OUTSIDE RECORDS SUMMARY | 2024-10-16 22:31 | XMS_ITS | Encounter Summary ---
Author Organization [facility] Address [address] [facility] [place] [address] Care Team Providers Care Sizing Machine And Drier Operator Name Role Phone Unavailable Primary Care Provider Unavailabl e Encounter Details Date Type Department Care Team (Latest Contact Info) Description 02/03/2022 Travel Social History Tobacco Use Types Packs/Day [...] st Contact Info) Description 10/31/2024 10:00 AM LUMBER BUYER Office Visit [facility] - Rheumatology [address] [place] [address], [place] [phone] Antonio Bowles MD [address] [place] [address] [place] [phone] 02/01/2025 9:00 AM CDT Appointment [facility] [address] [place] [address] Sultana Sullivan MD [address] [place] [address], [place] [address] documented as of this encounter Visit Diagnoses Not on filedocumented in this encounter
--- OUTSIDE RECORDS SUMMARY | 2024-10-16 22:31 | XMS_ITS | Encounter Summary ---
Author Organization [facility] Address [address] [facility] [place] [address] Care Team Providers Care Energy Broker Name Role Phone Unavailable Primary Care Provider Unavailabl e Encounter Details Date Type Department Care Team (Late Contact Info) Description 01/01/2022 Orders Only [facility] [address] [place] [phone] Alma Hurtado MD [address] [place] [phone] Rheumatoid arthritis, involving unspecified site, unspecified whether rheumatoid factor present (HCC); Therapeutic drug monitoring; halfway 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 Social History [...] st Contact Info) Description 10/31/2024 10:00 AM MOTION PICTURE EQUIPMENT SUPERVISOR Office Visit [facility] - Rheumatology [address] [place] [phone] nAtonio Bowles MD [address] [place] [address] [place] [phone] 02/01/2025 9:00 AM CDT Appointment [facility] [address] [place] [address] Sultana Sullivan MD [address] [place] [phone] documented as of this encounter Visit Diagnoses Diagnosis Rheumatoid arthritis, involving unspecified site, unspecified whether rheumatoid factor present ([facility]) Therapeutic drug monitoring Encounter for therapeutic drug monitoring watermelon inspector 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 documented in this encounter
--- OUTSIDE RECORDS SUMMARY | 2024-10-16 22:31 | XMS_ITS | Encounter Summary ---
Author Organization [facility] Address [address] [facility] [place] [address] Care Team Providers Care Molder Foam Rubber Name Role Phone Unavailable Primary Care Provider Unavailabl e Encounter Details Date Type Department Care Team (Latest Contact Info) Description 11/04/2021 8:30 AM WASTE WATER PLANT OPERATOR Office Visit [facility], [facility] [place] [id number] Alma Hurtado MD [facility] [address] [place], [place] [address] Rheumatoid arthritis, involving unspecified site, unspecified whether rheumatoid factor present (HCC) (Primary Dx); Therapeutic drug monitoring; halfway current use of [...] COVID-19? No / Unsure 11/04/2021 9:53 AM WASTE WATER PLANT OPERATOR documented as of this encounter Last Filed Vital Signs Vital Sign Reading Time Taken Comments Blood Pressure 104/70 11/04/2021 8:35 AM WASTE WATER PLANT OPERATOR Pulse - - Temperature 36.1 ??C (97 ??F) 11/04/2021 8:35 AM WASTE WATER PLANT OPERATOR Respiratory Rate - - Oxygen Saturation - - Inhaled Oxygen Concentration - - Weight 50.1 kg (110 lb 8 oz) 11/04/2021 8:35 AM WASTE WATER PLANT OPERATOR Height 152.4 cm (5') 11/04/2021 8:35 AM WASTE WATER PLANT OPERATOR Body Mass Index 21.58 11/04/2021 8:35 AM WASTE WATER PLANT OPERATOR documented in this encounter Patient Instructions * Patient Instructions* Alma Hurtado MD - 11/04/2021 9:24 AM WASTE WATER PLANT OPERATOR Please take the naproxen twice a day (twice dosing will help with your inflammation) Please have labs done today, we will call about the lab results and what to do with the methotrexate dosing After labs are discussed, we will talk about whether we need to start hydroxychloroquin. Return to clinic in 2-[address] Hurtado If you need to change or cancel your Rheumatology appointment - At the [facility] ([facility]) at [address] [place] [address], call [phone]. If you need a refill request, have your pharmacy fax a request to [phone]. If you need to leave a message for Dr. Hurtado you can send her an electronic message via [employer] or leave a voicemail at [phone]. Her office FAX number is [phone]. For after hours emergency only, you can call the [facility] crawler dragline operator at [phone] and ask for the Side Gluer linen controller to be paged. If you have been given a referral to a new specialist at [facility] and have not received a call to schedule within 1 week, please call [phone] to schedule your visit. E WATER PLANT OPERATOR documented in this encounter Progress Notes * Alma Hurtado MD - 11/04/2021 8:30 AM CST [facility] Clinic Visit Follow Up Patient Note Patient: Sultana Vincent, : 1960 PCP: No primary care provider on file. Referring Physician: Marvin Davis [address] [place] [address] No chief complaint on file. HPI: Sultana Vincent is a 61 year old female presenting for follow up of seropositive RA (+Rf, +CCP, no erosions)) Interim History Has been on MTX 10 mg weekly and daily FA and tolerating it moderately. She takes mtx at night so less nausea -Feels a lot of improvement in legs as they arent as stiff as they used to be, and she has improvedwalking. she thinks helps the legs a lot, But her hands are still very pain and very stiff. -Last labs showed ALT elevated to 49 and AST normal at 39 -Discussed that If she has ongoing transaminitis on MTX, she will need to do a biologic. She is very fearful of infection risk with covid. Discussed at length with her. She would like to avoid injectable meds. -Cancer screening: mammogram 2-3 years ago , cologard last year, lung ct long time ago (>30 yearsmoker who quit 2020) Current meds takes naproxen once a day (not bid) methroexate 4 tabs daily FA Previous history Untreated joint pain for many years: shoulders knees, hands, ankles, neck. 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 Hands stiff all day, worst in the morning lasting 30 mins, and has trouble making a fist. Was given hydroxychloroquin 200 mg qd, naproxen 500 mg bid, tramadol, vit D 50,000 units by PCPs office but felt most were not helpful. Medication averse. Review of Systems: General: -fever, [...] saw heme onc 2019, no etiology found Current Medications: Current Outpatient [...] has no known allergies. Physical Exam: BP 104/70 (BP SITE: RIGHT ARM, BP POSITION: SITTING, BP CUFF SIZE: 10) Temp 97 ??F (36.1 ??C) (Oral) Ht 5' (1.524 m) Wt 110 lb 8 oz (50.1 kg) BMI 21.58 kg/m2 General: no distress, cooperative, anxious Skin: [...] alert, muscle strength 4+/5 Musculoskeletal Exam: Hands: PIPs S1T1 bilaterally 2nd and 3rd MCP bony enlargement SfT1 L ankle: 2-5th toes S1T1 1st toe s1T1 MTP head not full patient refused R foot exam Labs: CCP>250 in 03/2021. +CCP and +RF 07/2021 Diagnostics: 2020: C spine,Shoulders, elbows, hands, knees, feet XRs significant for OA and no erosion. Assessment/Plan: Sultana Vincent is a 61 year old female with longstanding seropositive RA (+CCP, +RF nonerosive), diagnosed 07/2021. 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 She started 10 mg MTX with some improvement in AM stiffness but still with ongoing synovitis of the PIPs and toes bilaterally. Herliver function test on the MTX showedelevated ALT 49 and ULN AST. We would need to obtain liver function labs to determine the next step. She has significant anxiety regarding needles, and understandably is worried about Covid and infection risk on the biologics. After much discussion we agreed on a plan. SHe does not want to do MTX and biologic therapy together due to infection risk. If liver function normalizes on MTX, we will increase MTX and add on HCQ. If liver function worsens on her current low dose of mtx, we stop mtx and start IV remicade or simponi. hep b c and tb neg in 07/2021. UTD on breast and colonl cancer screening, but needs lung cancer screening given history of tobacco abuse. Osteopenia diffuse on imaging: was on high dose VIt D with pcp, no history of fragility fractures. Cancer screenings in case of TNF inhibitor therapy: hep b c and tb neg in 07/2021. UTD on breast and colonl cancer screening, but needs lung cancer screening given history of tobacco abuse. 1. Labs: today, and every 4-6 weeks on mtx 2. Radiology: f/u R knee bone island XR finding with repeat imaging today 3. Medications: continue naproxen 500 mg bid. Continue methotrexate 4 tabs weekly and daily FA 4. Other: We will contact her with the next steps once labs are obtained. 5. RTC in 2-3 months Patient seen and examined with Dr. Serna. Alma Hurtado MD Rheumatology Fellow Department of Internal Medicine [facility] Orders Placed This Encounter ??? XR KNEE RIGHT 3VW Standing Status: Future Number of Occurrences: 1 Standing Expiration Date: 11/04/2022 Order Specific Question: Release to patient Answer: Immediate ??? CK BLOOD Standing Status: Future Number of Occurrences: 1 Standing Expiration Date: 11/29/2022 Order Specific Question: Release to patient Answer: Immediate ??? C-REACTIVE PROTEIN Standing Status: Future Number of Occurrences: 1 Standing Expiration Date: 11/29/2022 Order Specific Question: Release to patient Answer: Immediate ??? ERYTHROCYTE SEDIMENTATION RATE Standing Status: Future Number of Occurrences: 1 Standing Expiration Date: 11/29/2022 Order Specific Question: Release to patient Answer: Immediate ??? CBC WITH DIFFERENTIAL Standing Status: Future Number of Occurrences: 1 Standing Expiration Date: 11/29/2022 Order Specific Question: Release to patient Answer: Immediate ??? URINALYSIS W/MICROSCOPIC NO CULTURE Standing Status: Future Number of Occurrences: 1 Standing Expiration Date: 11/29/2022 Order Specific Question: Release to patient Answer: Immediate ??? ALDOLASE Standing Status: Future Number of Occurrences: 1 Standing Expiration Date: 11/29/2022 Order Specific Question: Release to patient Answer: Immediate ??? LDH BLOOD Standing Status: Future Number of Occurrences: 1 Standing Expiration Date: 11/29/2022 Order Specific Question: Release to patient Answer: Immediate Associated attestation - Anny Serna MD - 12/23/2021 10:16 AM CDT I have seen and examined the patient, reviewed available medical records, and agree with the findings, assessment, and plan as documented by Dr. Hurtado. Patient is a 61 year old female who presents for follow up of rheumatoid arthritis. She did start methotrexate as discussed after last visit. She notes some improvement, mostly in stiffness. She is still having pain and swelling in her hands though. She is having some nausea with the methotrexate, but it is tolerable. Taking it at night makes it less bothersome. She remains very worried about therisks of immunosuppression, and is very reluctant to add biologics. Also has some needle phobia. Exam: A&O, NAD Anxious RRR Lungs CTAB MSK: +MTP tenderness/positive squeeze test bilaterally, bilateral PIPs 2-4 S1T1, bilateral wrists S1T1, chronic hypertrophy 2nd, 3rd MCP bilaterally A/P: 61 year old female with relatively recent diagnosis of seropositive RA who presents for follow up. She has continued synovitis, and ideally we would add biologic, but patient is very resistant to this. She has had some mild increase in ALT on MTX, so would need to recheck this prior to uptitration,and likely will not be able to uptitrate. If liver enzymes ok, will increase MTX and add HCQ. If not, will need to further discuss biologci use. Anny Serna MD Adult and Pediatric Rheumatology documented in this encounter Plan of Treatment Upcoming Encounters Date Type Department Care Team (Late st Contact Info) Description 10/31/2024 10:00 AM WASTE WATER PLANT OPERATOR Office Visit [facility] - Rheumatology [address] [place] [address], [facility] [place] [phone] Antonio Bowles MD [address] [place] [address] [place] [phone] 02/01/2025 9:00 AM CDT Appointment [facility] [address] [place] [phone] Sultana Sullivan MD [address] [place] [phone] documented as of this encounter Results * (ABNORMAL) LDH BLOOD (11/04/2021 10:50 AM WASTE WATER PLANT OPERATOR) LDH Total 391(H) 125 - 243 Units/L 11/04/2021 12:06 PM WASTE WATER PLANT OPERATOR [facility] Comment:Hemolysis detected i n this specimen. Hemolysis is known to cause elevations in this analyte. Caution should be exercised in the interpretation of this result. Recommend repeat testing if clinically indicated. Blood BLOOD SPECIMEN / Unknown Lab Venipuncture / Unknown 11/04/2021 10:50 AM WASTE WATER PLANT OPERATOR 11/04/2021 11:39 AM WASTE WATER PLANT OPERATOR Anny Serna MD LAB - CHEMISTRY ORDERABLES [facility] [address] [place] [address], [facility] [phone] * (ABNORMAL) ALDOLASE (11/04/2021 10:50 AM WASTE WATER PLANT OPERATOR) Aldolase 9.6(H) 1.5 - 8.1 U/L 11/06/2021 9:14 PM WASTE WATER PLANT OPERATOR [facility] ([facility]) Comment: REFERENCE INTERVAL: Aldolase Access complete set of age- and/or gender-specific reference intervals for this test in the [facility] Laboratory Test Directory ([employer]). Performed By: [facility] [employer] [address] [place] [address] Electrical Installer: Beverley Rueda MD Blood BLOOD SPECIMEN / Unknown Lab Venipuncture / Unknown 11/04/2021 10:50 AM WASTE WATER PLANT OPERATOR 11/04/2021 11:35 AM WASTE WATER PLANT OPERATOR Anny Serna MD LAB - CHEMISTRY ORDERABLES Performing Organization Address [facility] Co de Phone Number [facility]) [address] [place] [address] * (ABNORMAL) URINALYSIS W/MICROSCOPIC NO CULTURE (11/04/2021 10:50 AM WASTE WATER PLANT OPERATOR) Color UA Yellow Straw, Yellow 11/04/2021 11:51 AM [facility] Clarity UA Clear Clear 11/04/2021 11:51 AM [facility] Specific Ilion UA 1.020 1.005 - 1.030 11/04/2021 11:51 AM [facility] pH UA 5.0 5.0 - 8.0 pH 11/04/2021 11:51 AM [facility] Protein UA Negative Negative 11/04/2021 11:51 AM [facility] Glucose UA Negative Negative 11/04/2021 11:51 AM [facility] Ketone UA Negative Negative 11/04/2021 11:51 AM [facility] Bilirubin UA Negative Negative 11/04/2021 11:51 AM [facility] Blood UA Negative Negative 11/04/2021 11:51 AM [facility] Nitrite UA Negative Negative 11/04/2021 11:51 AM [facility] Leukocyte Esterase 2+(A) Negative 11/04/2021 11:51 AM [facility] Urobilinogen UA Negative Negative mg/dL 11/04/2021 11:51 AM [facility] RBC UA 6-10(A) None Seen, 0-2, 3-5 /HPF 11/04/2021 11:51 AM [facility] WBC UA 6-10(A) None Seen, 0-5 /HPF 11/04/2021 11:51 AM [facility] Bacteria UA Trace(A) None /HPF 11/04/2021 11:51 AM [facility] Squamous Epithelial Cells UA 3-5 None Seen, 0-2, 3-5 /HPF 11/04/2021 11:51 AM [facility] Mucus UA 1+ /LPF 11/04/2021 11:51 AM [facility] Urine URINE SPECIMEN OBTAINED BY CLEAN CATCH PROCEDURE / Unknown Collection / Unknown 11/04/2021 10:50 AM WASTE WATER PLANT OPERATOR 11/04/2021 11:35 AM [facility] - 11/04/2021 11:51 AM WASTE WATER PLANT OPERATOR Anny Serna MD LAB - URINALYSI S ORDERABLES Performing Organization Address City/State/[facility] Co de Phone Number [facility] [address] [place] [address], [facility] [phone] * (ABNORMAL) CBC WITH DIFFERENTIAL (11/04/2021 10:50 AM WASTE WATER PLANT OPERATOR) WBC 6.4 3.5 - 10.5 10? 3 /uL 11/04/2021 12:29 PM [facility] RBC 4.95 3.80 - 5.20 10? 6 /uL 11/04/2021 12:29 PM [facility] Hemoglobin 14.2 12.0 - 15.6 g/dL 11/04/2021 12:29 PM [facility] Hematocrit 45.1(H) 35.0 - 45.0 % 11/04/2021 12:29 PM [facility] MCV 91.1 80.7 - 98.3 fL 11/04/2021 12:29 PM [facility] MCH 28.7 26.7 - 34.0 pg 11/04/2021 12:29 PM [facility] MCHC 31.5 30.8 - 35.9 g/dL 11/04/2021 12:29 PM [facility] Platelet Count 358 150 - 400 10? 3 /uL 11/04/2021 12:29 PM [facility] Comment: Platelets are clumped on smear but appear adequate. This is an appended report. ??These results have been appended to a previously preliminary verified report. RDW-SD 52.6(H) 36.0 - 50.0 fL 11/04/2021 12:29 PM [facility] RDW-CV 16.2(H) 11.2 - 14.8 % 11/04/2021 12:29 PM [facility] MPV 10.7 9.4 - 12.9 fL 11/04/2021 12:29 PM [facility] nRBC Absolute 0.00 0 10? 3 /uL 11/04/2021 12:29 PM [facility] nRBC Auto 0.0 0 /100 WBC 11/04/2021 12:29 PM [facility] Neutrophils % 79.5(H) 35.0 - 70.0 % 11/04/2021 12:29 PM [facility] Lymphocytes % 13.7(L) 20.0 - 43.0 % 11/04/2021 12:29 PM [facility] Monocytes % 4.3(L) 5.0 - 13.0 % 11/04/2021 12:29 PM [facility] Eosinophils % 2.0 0.0 - 6.0 % 11/04/2021 12:29 PM [facility] Basophil % 0.2 0.0 - 2.0 % 11/04/2021 12:29 PM [facility] Neutrophils Absolute 5.1 1.6 - 7.0 10? 3 /uL 11/04/2021 12:29 PM [facility] Lymphocyte Absolute 0.9(L) 1.1 - 3.9 10? 3 /uL 11/04/2021 12:29 PM [facility] Monocytes Absolute 0.28 0.26 - 1.07 10? 3 /uL 11/04/2021 12:29 PM [facility] Eosinophils Absolute 0.13 0.00 - 0.47 10? 3 /uL 11/04/2021 12:29 PM [facility] Basophils Absolute 0.01 0.00 - 0.08 10? 3 /uL 11/04/2021 12:29 PM [facility] Immature Granulocytes % 0.3 0.0 - 1.0 % 11/04/2021 12:29 PM [facility] Immature Granulocytes Absolute 0.02 11/04/2021 12:29 PM [facility] Immature Platelet Fraction 4.7 1.1 - 6.2 % 11/04/2021 12:29 PM [facility] Blood BLOOD SPECIMEN / Unknown Lab Venipuncture / Unknown 11/04/2021 10:50 AM WASTE WATER PLANT OPERATOR 11/04/2021 11:39 AM WASTE WATER PLANT OPERATOR Anny Serna MD LAB - HEMATOLOG Y ORDERABLES [facility] [address] [place] [phone], [facility] [phone] * (ABNORMAL) ERYTHROCYTE SEDIMENTATION RATE (11/04/2021 10:50 AM WASTE WATER PLANT OPERATOR) Pathologist [facility] Erythrocyte Sedimentation Rate Westergren 74(H) 0 - 30 MM/HR 11/04/2021 12:30 PM [facility] Blood BLOOD SPECIMEN / Unknown Lab Venipuncture / Unknown 11/04/2021 10:50 AM WASTE WATER PLANT OPERATOR 11/04/2021 11:39 AM WASTE WATER PLANT OPERATOR Anny Serna MD LAB - HEMATOLOG Y ORDERABLES [facility] [address] [place] [phone], [facility] [phone] * (ABNORMAL) C-REACTIVE PROTEIN (11/04/2021 10:50 AM WASTE WATER PLANT OPERATOR) C-Reactive Protein 0.6(H) <=0.5 mg/dL 11/04/2021 12:34 PM WASTE WATER PLANT OPERATOR [facility] Blood BLOOD SPECIMEN / Unknown Lab Venipuncture / Unknown 11/04/2021 10:50 AM WASTE WATER PLANT OPERATOR 11/04/2021 11:35 AM WASTE WATER PLANT OPERATOR Anny Serna MD LAB - CHEMISTRY ORDERABLES Performing Organization Address [facility]/ZIP Co de Phone Number [address] [address], [facility] [phone] * (ABNORMAL) CK BLOOD (11/04/2021 10:50 AM WASTE WATER PLANT OPERATOR) CK Total 23(L) 30 - 200 U/L 11/04/2021 12:06 PM WASTE WATER PLANT OPERATOR [facility] Blood BLOOD SPECIMEN / Unknown Lab Venipuncture / Unknown 11/04/2021 10:50 AM WASTE WATER PLANT OPERATOR 11/04/2021 11:39 AM WASTE WATER PLANT OPERATOR Anny Serna MD LAB - CHEMISTRY ORDERABLES Performing Organization Address City/[facility]/ZIP Co de Phone Number [address] [address], [facility] [phone] * XR KNEE RIGHT 3VW (11/04/2021 10:16 AM WASTE WATER PLANT OPERATOR) Anatomical Region Laterality Modality Lower Extremity Radiographic Ivana ging 11/04/2021 10:2 8 AM WASTE WATER PLANT OPERATOR Impressions 11/04/2021 10:49 AM WASTE WATER PLANT OPERATOR IMPRESSION: No significant degenerative or erosive changes. Dictated by Nesha Huggins MD (interventional radiology rn). I, Dr. BOOGIE SEARS MD have personally reviewed and interpreted this examination/study. This report was electronically signed by BOOGIE SEARS MD ??on 11/04/2021 10:49 AM . 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 The knee joint space is preserved. There is no effusion. No soft tissue swelling is present. IMPRESSION: No significant degenerative or erosive changes. Dictated by Nesha Huggins MD (interventional radiology rn). I, Dr. BOOGIE SEARS MD have personally reviewed and interpreted this examination/study. This report was electronically signed by BOOGIE SEARS MD on11/04/2021 10:49 AM . Anny Serna MD DIAGNOSTIC IMAG ING ORDERABLES documented in this encounter Visit Diagnoses Diagnosis Rheumatoid arthritis, involving unspecified site, unspecified whether rheumatoid factor present (HCC)- Primary Therapeutic drug monitoring Encounter for therapeutic drug monitoring terminal system operator 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 Rheumatoid arthritis, involving unspecified site, unspecified whether rheumatoid factor present (HCC) Therapeutic drug monitoring Encounter for therapeutic drug monitoring halfway 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 documented in this encounter
--- OUTSIDE RECORDS SUMMARY | 2024-10-16 22:31 | XMS_ITS | Encounter Summary ---
Author Organization [facility] Address [address] [place] [address] Care Team Providers Care Instructional Developer Name Role Phone Unavailable Primary Care Provider Unavailabl e Encounter Details Date Type Department Care Team (Latest Contact Info) Description 11/04/2021 9:55 AM CLERK SPECIALIST - 11/04/2021 11:59 PM CLERK SPECIALIST Hospital Encounter [facility] [address] [place] [phone] Anny Serna MD [address] [place] [address] Discharge Disposition: Home or Self Care Social [...] COVID-19? No / Unsure 11/04/2021 9:53 AM CLERK SPECIALIST documented as of this encounter Medications at Time of Discharge Medication Sig Dispensed Refills Start Date End Date folic acid (FOLVITE) 1 MG tabletIndications:Rheu matoid arthritis, involving unspecified site, unspecified whether rheumatoid factor present (HCC),Therapeutic drug monitoring Take 1 (one) tablet by mouth once daily 90 tablet 4 07/29/2021 12/28/2021 methotrexate 2.5 MG tabletIndications:Rheu matoid Arthritis Take 4 (four) tablets by mouth every 7 days Reasons: Rheumatoid Arthritis 16 tablet 4 07/29/2021 12/28/2021 naproxen (NAPROSYN) 500 MG tabletIndications:Rheu matoid arthritis, involving unspecified site, unspecified whether rheumatoid factor present (HCC) Take 1 (one) tablet by mouth 2 times daily 180 tablet 4 07/22/2021 01/11/2023 VITAMIN D, CHOLECALCIFEROL, PO Take 50,000 Units by mouth every 7 days 11/10/2022 documented as of this encounter Plan of Treatment Upcoming Encounters Date Type Department Care Team (Late st Contact Info) Description 10/31/2024 10:00 AM CLERK SPECIALIST Office Visit [facility] - Rheumatology [address] [place] [address] [place] [address] Antonio Bowles MD [address] [place] [address] [place] [phone] 02/01/2025 9:[address] [facility] [address] [place] [id number] Sultana Sullivan MD [address] [place] [phone] documented as of this encounter Procedures Procedure Name Priority Date/Time Associated Diagnosis Comments URINALYSIS W/MICROSCOPIC NO CULTURE Routine 11/04/2021 10:50 AM CLERK SPECIALIST Rheumatoid arthritis, involving unspecified site, unspecified whether rheumatoid factor present (HCC) Therapeutic drug monitoring longterm 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 C-REACTIVE PROTEIN Routine 11/04/2021 10 :50 AM CLERK SPECIALIST Rheumatoid arthritis, involving unspecified site, unspecified whether rheumatoid factor present (HCC) 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 ALDOLASE Routine 11/04/2021 10:50 AM CLERK SPECIALIST Rheumatoid arthritis, involving unspecified site, unspecified whether rheumatoid factor present (HCC) ERYTHROCYTE SEDIMENTATION RATE Routine 11/04/2021 10:50 AM CLERK SPECIALIST Rheumatoid arthritis, involving unspecified site, unspecified whether rheumatoid factor present (HCC) 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 CBC W AUTO DIFFERENTIAL Routine 11/04/2021 10:50 AM CLERK SPECIALIST Rheumatoid arthritis, involving unspecified site, unspecified whether rheumatoid factor present (HCC) Therapeutic drug monitoring longterm 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 LDH BLOOD Routine 11/04/2021 10:50 AM CLERK SPECIALIST Rheumatoid arthritis, involving unspecified site, unspecified whether rheumatoid factor present (HCC) CK BLOOD Routine 11/04/2021 10:50 AM CLERK SPECIALIST Rheumatoid arthritis, involving unspecified site, unspecified whether rheumatoid factor present (HCC) 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 Comment:Hemolysis detected i n this specimen. Hemolysis is known to cause elevations in this analyte. Caution should be exercised in the interpretation of this result. Recommend repeat testing if clinically indicated. Blood BLOOD SPECIMEN / Unknown Lab Venipuncture / Unknown 11/04/2021 10:50 AM CLERK SPECIALIST 11/04/2021 11:39 AM CLERK SPECIALIST Anny Serna MD LAB - CHEMISTRY ORDERABLES [facility] [address] [place] [phone], [facility] [phone] * (ABNORMAL) ALDOLASE (11/04/2021 10:50 AM CLERK SPECIALIST) Aldolase 9.6(H) 1.5 - 8.1 U/L 11/06/2021 9:14 PM CLERK SPECIALIST [facility] ([facility]) Comment: REFERENCE INTERVAL: Aldolase Access complete set of age- and/or gender-specific reference intervals for this test in the [facility] Laboratory Test Directory ([email or web address]). Performed By: [email or web address] [address] [place] [address] Automatic Washer Mechanic: Beverley Rueda MD Blood BLOOD SPECIMEN / Unknown Lab Venipuncture / Unknown 11/04/2021 10:50 AM CLERK SPECIALIST 11/04/2021 11:35 AM CLERK SPECIALIST Anny Serna MD LAB - CHEMISTRY ORDERABLES [facility] ([facility]) [address] [place] [address], [facility] * (ABNORMAL) URINALYSIS W/MICROSCOPIC NO CULTURE (11/04/2021 10:50 AM CLERK SPECIALIST) Color UA Yellow Straw, Yellow 11/04/2021 11:51 AM [facility] Clarity UA Clear Clear 11/04/2021 11:51 AM [facility] Specific [place] UA 1.020 1.005 - 1.030 11/04/2021 11:51 AM [facility] pH UA 5.0 5.0 - 8.0 pH 11/04/2021 11:51 AM [facility] Protein UA Negative Negative 11/04/2021 11:51 AM [facility] Glucose UA Negative Negative 11/04/2021 11:51 AM [facility] Ketone UA Negative Negative 11/04/2021 11:51 AM [facility] Bilirubin UA Negative Negative 11/04/2021 11:51 AM [facility] Blood UA Negative Negative 11/04/2021 11:51 AM [facility] Nitrite UA Negative Negative 11/04/2021 11:51 AM [facility] Leukocyte Esterase 2+(A) Negative 11/04/2021 11:51 AM [facility] Urobilinogen UA Negative Negative mg/dL 11/04/2021 11:51 AM [facility] RBC UA 6-10(A) None Seen, 0-2, 3-5 /HPF 11/04/2021 11:51 AM [facility] WBC UA 6-10(A) None Seen, 0-5 /HPF 11/04/2021 11:51 AM [facility] Bacteria UA Trace(A) None /HPF 11/04/2021 11:51 AM [facility] Squamous Epithelial Cells UA 3-5 None Seen, 0-2, 3-5 /HPF 11/04/2021 11:51 AM [facility] Mucus UA 1+ /LPF 11/04/2021 11:51 AM [facility] Urine URINE SPECIMEN OBTAINED BY CLEAN CATCH PROCEDURE / Unknown Collection / Unknown 11/04/2021 10:50 AM CLERK SPECIALIST 11/04/2021 11:35 AM CLERK SPECIALIST [facility] - 11/04/2021 11:51 AM CLERK SPECIALIST Anny Serna MD LAB - URINALYSI S ORDERABLES [facility] [address] [place] [address], [facility] [phone] * (ABNORMAL) CBC WITH DIFFERENTIAL (11/04/2021 10:50 AM CLERK SPECIALIST) WBC 6.4 3.5 - 10.5 10? 3 /uL 11/04/2021 12:29 PM [facility] RBC 4.95 3.80 - 5.20 10? 6 /uL 11/04/2021 12:29 PM [facility] Hemoglobin 14.2 12.0 - 15.6 g/dL 11/04/2021 12:29 PM [facility] Hematocrit 45.1(H) 35.0 - 45.0 % 11/04/2021 12:29 PM [facility] MCV 91.1 80.7 - 98.3 fL 11/04/2021 12:29 PM [facility] MCH 28.7 26.7 - 34.0 pg 11/04/2021 12:29 PM [facility] MCHC 31.5 30.8 - 35.9 g/dL 11/04/2021 12:29 PM [facility] Platelet Count 358 150 - 400 10? 3 /uL 11/04/2021 12:29 PM [facility] Comment: Platelets are clumped on smear but appear adequate. This is an appended report. ??These results have been appended to a previously preliminary verified report. RDW-SD 52.6(H) 36.0 - 50.0 fL 11/04/2021 12:29 PM [facility] RDW-CV 16.2(H) 11.2 - 14.8 % 11/04/2021 12:29 PM [facility] MPV 10.7 9.4 - 12.9 fL 11/04/2021 12:29 PM [facility] nRBC Absolute 0.00 0 10? 3 /uL 11/04/2021 12:29 PM [facility] nRBC Auto 0.0 0 /100 WBC 11/04/2021 12:29 PM [facility] Neutrophils % 79.5(H) 35.0 - 70.0 % 11/04/2021 12:29 PM [facility] Lymphocytes % 13.7(L) 20.0 - 43.0 % 11/04/2021 12:29 PM [facility] Monocytes % 4.3(L) 5.0 - 13.0 % 11/04/2021 12:29 PM [facility] Eosinophils % 2.0 0.0 - 6.0 % 11/04/2021 12:29 PM [facility] Basophil % 0.2 0.0 - 2.0 % 11/04/2021 12:29 PM [facility] Neutrophils Absolute 5.1 1.6 - 7.0 10? 3 /uL 11/04/2021 12:29 PM [facility] Lymphocyte Absolute 0.9(L) 1.1 - 3.9 10? 3 /uL 11/04/2021 12:29 PM [facility] Monocytes Absolute 0.28 0.26 - 1.07 10? 3 /uL 11/04/2021 12:29 PM [facility] Eosinophils Absolute 0.13 0.00 - 0.47 10? 3 /uL 11/04/2021 12:29 PM [facility] Basophils Absolute 0.01 0.00 - 0.08 10? 3 /uL 11/04/2021 12:29 PM [facility] Immature Granulocytes % 0.3 0.0 - 1.0 % 11/04/2021 12:29 PM [facility] Immature Granulocytes Absolute 0.02 11/04/2021 12:29 PM [facility] Immature Platelet Fraction 4.7 1.1 - 6.2 % 11/04/2021 12:29 PM [facility] Blood BLOOD SPECIMEN / Unknown Lab Venipuncture / Unknown 11/04/2021 10:50 AM CLERK SPECIALIST 11/04/2021 11:39 AM CLERK SPECIALIST Anny Serna MD LAB - HEMATOLOG Y ORDERABLES [address] [address], [place] [phone] * (ABNORMAL) ERYTHROCYTE SEDIMENTATION RATE (11/04/2021 10:50 AM CLERK SPECIALIST) Erythrocyte Sedimentation Rate [place] 74(H) 0 - 30 MM/HR 11/04/2021 12:30 PM CLERK SPECIALIST [facility] Blood BLOOD SPECIMEN / Unknown Lab Venipuncture / Unknown 11/04/2021 10:50 AM CLERK SPECIALIST 11/04/2021 11:39 AM CLERK SPECIALIST Anny Serna MD LAB - HEMATOLOG Y ORDERABLES Performing Organization Address City/[facility]/ZIP Co de Phone Number [address] [address], [place] [phone] * (ABNORMAL) C-REACTIVE PROTEIN (11/04/2021 10:50 AM CLERK SPECIALIST) C-Reactive Protein 0.6(H) <=0.5 mg/dL 11/04/2021 12:34 PM CLERK SPECIALIST [facility] Blood BLOOD SPECIMEN / Unknown Lab Venipuncture / Unknown 11/04/2021 10:50 AM CLERK SPECIALIST 11/04/2021 11:35 AM CLERK SPECIALIST Anny Serna MD LAB - CHEMISTRY ORDERABLES Performing Organization Address City/[facility]/ZIP Co de Phone Number [address] [address], [place] [phone] * (ABNORMAL) CK BLOOD (11/04/2021 10:50 AM CLERK SPECIALIST) CK Total 23(L) 30 - 200 U/L 11/04/2021 12:[address] [facility] Blood BLOOD SPECIMEN / Unknown Lab Venipuncture / Unknown 11/04/2021 10:50 AM CLERK SPECIALIST 11/04/2021 11:39 AM CLERK SPECIALIST Anny Serna MD LAB - CHEMISTRY ORDERABLES [facility] [address] [place] [address], [facility] [phone] documented in this encounter Visit Diagnoses Diagnosis Rheumatoid arthritis, involving unspecified site, unspecified whether rheumatoid factor present ([facility]) Therapeutic drug monitoring Encounter for therapeutic drug monitoring longterm 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 documented in this encounter
--- OUTSIDE RECORDS SUMMARY | 2024-10-16 22:31 | XMS_ITS | Encounter Summary ---
Author Organization [facility] Address [address] [place] [address] Care Team Providers Care Medical Receptionist Name Role Phone Unavailable Primary Care Provider Unavailabl e Encounter Details Date Type Department Care Team (Latest Contact Info) Description 07/22/2021 11:49 AM CDT Hospital Encounter [facility] [address] [place] [phone] Anny Serna MD [address] DIV [place] [address] Discharge Disposition: Home or Self Care Social [...] AM CDT documented as of this encounter Medications at Time of Discharge Medication Sig Dispensed Refills Start Date End Date naproxen (NAPROSYN) 500 MG tabletIndications:Rheuma toid arthritis, involving unspecified site, unspecified whether rheumatoid factor present (HCC) Take 1 (one) tablet by mouth 2 times daily 180 tablet 4 07/22/2021 01/11/2023 documented as of this encounter Plan of Treatment Upcoming Encounters Date Type Department Care Team (Late st Contact Info) Description 10/31/2024 10:00 AM 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 SCIENCE 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 Office Visit [facility] - Rheumatology [address] [facility], [place] [address] Antonio Bowles MD [facility] [facility] [place] [address] 02/01/2025 9:00 AM CDT Appointment [facility] [address] [place] [address] Sultana Sullivan MD [address] [place] [address] documented as of this encounter Procedures Procedure Name Priority Date/Time Associated Diagnosis Comments URINALYSIS W/MICROSCOPIC NO CULTURE Routine 07/22/2021 12:56 PM CDT Rheumatoid arthritis, involving unspecified site, unspecified whether rheumatoid factor present (HCC) Therapeutic drug monitoring QUANTIFERON-TB GOLD PLUS 4-TUBE Routine 07/22/2021 12:53 PM CDT Rheumatoid arthritis, involving unspecified site, unspecified whether rheumatoid factor present (HCC) Therapeutic drug monitoring CYCLIC CITRUL PEPTIDE ANTIBODY IGG/IGA (CCP) Routine 07/22/2021 12:53 PM CDT Rheumatoid arthritis, involving unspecified site, unspecified whether rheumatoid factor present (HCC) Therapeutic drug monitoring RHEUMATOID FACTOR BLOOD QUANTITATIVE Routine 07/22/2021 12:53 PM CDT Rheumatoid arthritis, involving unspecified site, unspecified whether rheumatoid factor present (HCC) Therapeutic drug monitoring C-REACTIVE PROTEIN Routine 07/22/2021 12 :53 PM CDT Rheumatoid arthritis, involving unspecified site, unspecified whether rheumatoid factor present (HCC) Therapeutic drug monitoring VITAMIN D 25-HYDROXY Routine 07/22/2021 12:53 PM CDT Rheumatoid arthritis, involving unspecified site, unspecified whether rheumatoid factor present (HCC) Therapeutic drug monitoring ALDOLASE Routine 07/22/2021 12:53 PM CDT Rheumatoid arthritis, involving unspecified site, unspecified whether rheumatoid factor present (HCC) Therapeutic drug monitoring ERYTHROCYTE SEDIMENTATION RATE Routine 07/22/2021 12:53 PM CDT Rheumatoid arthritis, involving unspecified site, unspecified whether rheumatoid factor present (HCC) Therapeutic drug monitoring CBC W AUTO DIFFERENTIAL Routine 07/22/2021 12:53 PM CDT Rheumatoid arthritis, involving unspecified site, unspecified whether rheumatoid factor present (HCC) Therapeutic drug monitoring COMPREHENSIVE METABOLIC PANEL Routine 07/22/2021 12:53 PM CDT Rheumatoid arthritis, involving unspecified site, unspecified whether rheumatoid factor present (HCC) Therapeutic drug monitoring LDH BLOOD Routine 07/22/2021 12:53 PM CDT Rheumatoid arthritis, involving unspecified site, unspecified whether rheumatoid factor present (HCC) Therapeutic drug monitoring HEPATITIS B SURFACE ANTIBODY Routine 07/22/2021 12:53 PM CDT Rheumatoid arthritis, involving unspecified site, unspecified whether rheumatoid factor present (HCC) Therapeutic drug monitoring HEPATITIS B CORE ANTIBODY TOTAL Routine 07/22/2021 12:53 PM CDT Rheumatoid arthritis, involving unspecified site, unspecified whether rheumatoid factor present (HCC) Therapeutic drug monitoring HEPATITIS B SURFACE ANTIGEN W RFLX CONFIRMATION Routine 07/22/2021 12:53 PM CDT Rheumatoid arthritis, involving unspecified site, unspecified whether rheumatoid factor present (HCC) Therapeutic drug monitoring CK BLOOD Routine 07/22/2021 12:53 PM CDT Rheumatoid arthritis, involving unspecified site, unspecified whether rheumatoid factor present (HCC) Therapeutic drug monitoring HEPATITIS C ANTIBODY Routine 07/22/2021 12:53 PM CDT Rheumatoid arthritis, involving unspecified site, unspecified whether rheumatoid factor present (HCC) Therapeutic drug monitoring documented in this encounter Results * (ABNORMAL) URINALYSIS W/MICROSCOPIC NO CULTURE (07/22/2021 12:56 PM [facility]) Color UA Yellow Straw, Yellow 07/22/2021 1:17 PM [facility] Clarity UA Slt Cloudy(A) Clear 07/22/2021 1:17 PM [facility] Specific [place] UA 1.019 1.005 - 1.030 07/22/2021 1:17 PM [facility] pH UA 5.0 5.0 - 8.0 pH 07/22/2021 1:17 PM [facility] Protein UA Negative Negative 07/22/2021 1:17 PM [facility] Glucose UA Negative Negative 07/22/2021 1:17 PM [facility] Ketone UA Negative Negative 07/22/2021 1:17 PM [facility] Bilirubin UA Negative Negative 07/22/2021 1:17 PM [facility] Blood UA 1+(A) Negative 07/22/2021 1:17 PM [facility] Nitrite UA Negative Negative 07/22/2021 1:17 PM [facility] Leukocyte Esterase 3+(A) Negative 07/22/2021 1:17 PM [facility] Urobilinogen UA Negative Negative mg/dL 07/22/2021 1:17 PM [facility] RBC UA 6-10(A) None Seen, 0-2, 3-5 /HPF 07/22/2021 1:17 PM [facility] WBC UA 11-20(A) None Seen, 0-5 /HPF 07/22/2021 1:17 PM [facility] Bacteria UA Trace(A) None /HPF 07/22/2021 1:17 PM [facility] Squamous Epithelial Cells UA 6-10(A) None Seen, 0-2, 3-5 /HPF 07/22/2021 1:17 PM [facility] Mucus UA 1+ /LPF 07/22/2021 1:17 PM [facility] Urine URINE SPECIMEN OBTAINED BY CLEAN CATCH PROCEDURE / Unknown Collection / Unknown 07/22/2021 12:56 PM CDT 07/22/2021 1:17 PM CDT Narrative [facility] - 07/22/2021 1:17 PM CDT Anny Serna MD LAB - URINALYSI S ORDERABLES [address] [address], [place] [phone] * (ABNORMAL) LDH BLOOD (07/22/2021 12:53 PM CDT) Pathologist [facility] LDH Total 282(H) 125 - 243 Units/L 07/22/2021 1:45 PM CDT [facility] Blood BLOOD SPECIMEN / Unknown Lab Venipuncture / Unknown 07/22/2021 12:53 PM CDT 07/22/2021 1:14 PM CDT Anny Serna MD LAB - CHEMISTRY ORDERABLES Performing Organization Address [facility]/ZIP Co de Phone Number [address] [address], [place] [phone] * (ABNORMAL) CK BLOOD (07/22/2021 12:53 PM CDT) [facility] CK Total 24(L) 30 - 200 U/L 07/22/2021 1:45 PM CDT [facility] Blood BLOOD SPECIMEN / Unknown Lab Venipuncture / Unknown 07/22/2021 12:53 PM CDT 07/22/2021 1:14 PM CDT Anny Serna MD LAB - CHEMISTRY ORDERABLES Performing Organization Address City/[facility]/ZIP Co de Phone Number [address] [address], [place] [phone] * ALDOLASE (07/22/2021 12:53 PM CDT) [facility] Aldolase 4.5 1.5 - 8.1 U/L 07/24/2021 12:12 PM CDT [facility] ([facility]) Comment: REFERENCE INTERVAL: Aldolase Access complete set of age- and/or gender-specific reference intervals for this test in the [facility] Test Directory (Converged Access). Performed By: [facility] [address] [place] [address] Mailroom Supervisor: Beverley Rueda MD Blood BLOOD SPECIMEN / Unknown Lab Venipuncture / Unknown 07/22/2021 12:53 PM CDT 07/22/2021 1:07 PM CDT Anny Serna MD LAB - CHEMISTRY ORDERABLES Performing Organization Address City/[facility] Co de Phone Number [facility] ([facility]) [address] [place], [place] [address] [place] [address] * HEPATITIS C ANTIBODY (07/22/2021 12:53 PM CDT) Pathologist [facility] Hepatitis C Antibody Non-react sergio Non-reac tive 07/22/2021 2:25 PM CDT [facility] Comment:Hepatitis C Antibody screen indicates [...] Anny Serna MD LAB - CHEMISTRY ORDERABLES [address] [address], [place] [phone] * HEPATITIS B SURFACE ANTIGEN W RFLX CONFIRMATION (07/22/2021 12:53 PM CDT) Pathologist [facility] Hepatitis B Virus Surface Antigen Non-reacti ve Non-reacti ve 07/22/2021 2:25 PM CDT [facility] Blood BLOOD SPECIMEN / Unknown Lab Venipuncture / Unknown 07/22/2021 12:53 PM CDT 07/22/2021 1:07 PM CDT Anny Serna MD LAB - CHEMISTRY ORDERABLES Performing Organization Address [facility] Co de Phone Number [facility] [address] [place] [address], [place] [phone] * HEPATITIS B SURFACE ANTIBODY (07/22/2021 12:53 PM CDT) Hepatitis B Virus Surface Antibody Non-react sergio Non-react sergio 07/22/2021 2:25 PM CDT [facility] Comment: < 8 mIU/mL Hepatitis B surface Antibody (HBsAb). Nonreactive for HBsAb - individual is considered not immune to Hepatitis B Virus infection. Hepatitis B Surface Antibody Quantitative 0.0 <8.0 mIU/mL 07/22/2021 2:25 PM CDT [facility] Comment: Hepatitis B Surface Antibody Numeric Result Interpretation: ? Nonreactive: ?<8.0 mIU/mL ? Indeterminate: ??8.0 - 12.0 mIU/mL ? Reactive: ?>12.0 mIU/mL ? Blood BLOOD SPECIMEN / Unknown Lab Venipuncture / Unknown 07/22/2021 12:53 PM CDT 07/22/2021 1:07 PM CDT Anny Serna MD LAB - CHEMISTRY ORDERABLES Performing Organization Address [facility]/ZIP Co de Phone Number [facility] [address] [place] [address], [place] [phone] * HEPATITIS B CORE ANTIBODY (07/22/2021 12:53 PM CDT) HBc Antibody Total Non-reacti ve Non-reacti ve 07/22/2021 2:25 PM CDT [facility] Blood BLOOD SPECIMEN / Unknown Lab Venipuncture / Unknown 07/22/2021 12:53 PM CDT 07/22/2021 1:07 PM CDT Anny Serna MD LAB - CHEMISTRY ORDERABLES [place] [id number] [place] [address], [place] [phone] * QUANTIFERON-TB GOLD PLUS 4-TUBE (07/22/2021 12:53 PM CDT) [facility] QuantiFERON NIL 0.02 IU/mL 5:35 PM CDT [facility] ([facility]) Comment: Performed By: [facility] [address] [place] [address] Mailroom Supervisor: Beverley Rueda MD QuantiFERON TB Gold Plus Negative Negative 07/26/2021 5:35 PM CDT [facility] ([facility]) Comment: Interpretive Data: Quantiferon TB Gold Plus [...] Mycobacterium tuberculosis Infection --- [place], 2010 (http://www.cdc.gov/mmwr/preview/mmwrhtml/in6249l7.htm), for more information concerning test performance in low-prevalence populations and use in occupational screening. QuantiFERON Plus TB1 Minus NIL 0.00 0.00 - 0.34 IU/mL 07/26/2021 5:35 PM CDT [facility] ([facility]) QuantiFERON Plus TB2 Minus NIL 0.00 0.00 - 0.34 IU/mL 07/26/2021 5:35 PM CDT [facility] ([facility]) QuantiFERON Mitogen Minus NIL >10.00 IU/mL 07/26/2021 5:35 PM CDT [facility]) Blood BLOOD SPECIMEN / Unknown Lab Venipuncture / Unknown 07/22/2021 12:53 PM CDT 07/22/2021 1:07 PM CDT Anny Serna MD LAB - CHEMISTRY ORDERABLES [facility]) [address] [place] [address], [place] * VITAMIN D 25-HYDROXY (07/22/2021 12:53 PM CDT) Pathologist [facility] Vitamin D, 25 Hydroxy 38.0 30.0 - 80.0 ng/mL 07/22/2021 1:58 PM CDT [facility] Comment: The recommendations for 25-Hydroxy Vitamin [...] LAB - CHEMISTRY ORDERABLES Performing Organization Address [facility]/ZIP Co de Phone Number [address] [address], [place] [phone] * (ABNORMAL) ERYTHROCYTE SEDIMENTATION RATE (07/22/2021 12:53 PM CDT) Erythrocyte Sedimentation Rate Westergren 46(H) 0 - 30 MM/HR 07/22/2021 1:51 PM CDT [facility] Blood BLOOD SPECIMEN / Unknown Lab Venipuncture / Unknown 07/22/2021 12:53 PM CDT 07/22/2021 1:14 PM CDT Anny Serna MD LAB - HEMATOLOG Y ORDERABLES Performing Organization Address [facility]/ZIP Co de Phone Number [address] [address], [place] [phone] * (ABNORMAL) C-REACTIVE PROTEIN (07/22/2021 12:53 PM CDT) [facility] C-Reactive Protein 4.5(H) <=0.5 mg/dL 07/22/2021 2:06 PM CDT [facility] Blood BLOOD SPECIMEN / Unknown Lab Venipuncture / Unknown 07/22/2021 12:53 PM CDT 07/22/2021 1:07 PM CDT Anny Serna MD LAB - CHEMISTRY ORDERABLES Performing Organization Address City/[facility]/ZIP Co de Phone Number [address] [address], [place] [phone] * (ABNORMAL) COMPREHENSIVE METABOLIC PANEL (07/22/2021 12:53 PM CDT) BUN 17 7 - 26 mg/dL 07/22/2021 1:45 PM CDT [facility] Creatinine 0.67 0.56 - 0.96 mg/dL 07/22/2021 1:45 PM CDT [facility] Sodium 138 136 - 145 mmol/L 07/22/2021 1:45 PM [facility] Potassium 4.4 3.5 - 4.5 mmol/L 07/22/2021 1:45 PM [facility] Chloride 100 98 - 107 mmol/L 07/22/2021 1:45 PM [facility] CO2 25 22 - 29 mmol/L 07/22/2021 1:45 PM [facility] Glucose 95 70 - 115 mg/dL 07/22/2021 1:45 PM [facility] Calcium 9.9 8.4 - 10.2 mg/dL 07/22/2021 1:45 PM [facility] Protein Total 7.9 6.0 - 8.3 g/dL 07/22/2021 1:45 PM [facility] Albumin 3.5 3.4 - 5.0 g/dL 07/22/2021 1:45 PM [facility] Bilirubin Total 0.3 0.2 - 1.2 mg/dL 07/22/2021 1:45 PM [facility] Alkaline Phosphatase 78 40 - 150 U/L 07/22/2021 1:45 PM [facility] ALT 12 5 - 55 U/L 07/22/2021 1:45 PM [facility] AST 19 5 - 34 U/L 07/22/2021 1:45 PM [facility] Anion Gap 17 8 - 18 07/22/2021 1:45 PM [facility] BUN/Creatinine Ratio 25(H) 7 - 23 07/22/2021 1:45 PM [facility] Osmolality Calculated 287 270 - 300 mOsm/kg 07/22/2021 1:45 PM [facility] Albumin/Globulin Ratio 0.8(L) 1.1 - 2.3 07/22/2021 1:45 PM [facility] eGFR by CKD-EPI >90 >=90 mL/min/1.7 3 m2 07/22/2021 1:45 PM [facility] Blood BLOOD SPECIMEN / Unknown Lab Venipuncture / Unknown 07/22/2021 12:53 PM T 07/22/2021 1:14 PM CDT Anny Serna MD LAB - CHEMISTRY ORDERABLES [facility] [address] [place] [address], [place] [phone] * (ABNORMAL) CBC WITH DIFFERENTIAL (07/22/2021 12:53 PM CDT) WBC 6.1 3.5 - 10.5 10? 3 /uL 07/22/2021 1:38 PM [facility] RBC 4.76 3.80 - 5.20 10? 6 /uL 07/22/2021 1:38 PM [facility] Hemoglobin 13.3 12.0 - 15.6 g/dL 07/22/2021 1:38 PM [facility] Hematocrit 42.3 35.0 - 45.0 % 07/22/2021 1:38 PM [facility] MCV 88.9 80.7 - 98.3 fL 07/22/2021 1:38 PM [facility] MCH 27.9 26.7 - 34.0 pg 07/22/2021 1:38 PM [facility] MCHC 31.4 30.8 - 35.9 g/dL 07/22/2021 1:38 PM [facility] Platelet Count 564(H) 150 - 400 10? 3 /uL 07/22/2021 1:38 PM [facility] RDW-SD 42.1 36.0 - 50.0 fL 07/22/2021 1:38 PM [facility] RDW-CV 12.9 11.2 - 14.8 % 07/22/2021 1:38 PM [facility] MPV 9.4 9.4 - 12.9 fL 07/22/2021 1:38 PM [facility] nRBC Absolute 0.00 0 10? 3 /uL 07/22/2021 1:38 PM [facility] nRBC Auto 0.0 0 /100 WBC 07/22/2021 1:38 PM [facility] Neutrophils % 68.4 35.0 - 70.0 % 07/22/2021 1:38 PM CDT [facility] Lymphocytes % 22.1 20.0 - 43.0 % 07/22/2021 1:38 PM T [facility] Monocytes % 7.0 5.0 - 13.0 % 07/22/2021 1:38 PM T [facility] Eosinophils % 1.8 0.0 - 6.0 % 07/22/2021 1:38 PM T [facility] Basophil % 0.2 0.0 - 2.0 % 07/22/2021 1:38 PM T [facility] Neutrophils Absolute 4.2 1.6 - 7.0 10? 3 /uL 07/22/2021 1:38 PM T [facility] Lymphocyte Absolute 1.4 1.1 - 3.9 10? 3 /uL 07/22/2021 1:38 PM T [facility] Monocytes Absolute 0.43 0.26 - 1.07 10? 3 /uL 07/22/2021 1:38 PM T [facility] Eosinophils Absolute 0.11 0.00 - 0.47 10? 3 /uL 07/22/2021 1:38 PM T [facility] Basophils Absolute 0.01 0.00 - 0.08 10? 3 /uL 07/22/2021 1:38 PM T [facility] Immature Granulocytes % 0.5 0.0 - 1.0 % 07/22/2021 1:38 PM T [facility] Immature Granulocytes Absolute 0.03 07/22/2021 1:38 PM [facility] Blood BLOOD SPECIMEN / Unknown Lab Venipuncture / Unknown 07/22/2021 12:53 PM CDT 07/22/2021 1:14 PM CDT Anny Serna MD LAB - HEMATOLOG Y ORDERABLES [facility] [address] [place] [address], [place] [phone] * (ABNORMAL) RHEUMATOID FACTOR BLOOD QUANTITATIVE (07/22/2021 12:53 PM CDT) Rheumatoid Factor 59(H) <30 IU/mL 07/22/2021 2:06 PM CDT [facility] Rheumatoid Factor Screen Positive( A) Negative 07/22/2021 2:06 PM CDT [facility] Blood BLOOD SPECIMEN / Unknown Lab Venipuncture / Unknown 07/22/2021 12:53 PM CDT 07/22/2021 1:07 PM CDT Anny Serna MD LAB - CHEMISTRY ORDERABLES Performing Organization Address [facility] Co de Phone Number [facility] [address] [place] [address], [place] [phone] * (ABNORMAL) CYCLIC CITRUL PEPTIDE ANTIBODY IGG/IGA (CCP) (07/22/2021 12:53 PM CDT) [facility] Antibodies IgG/IgA >250(H) 0 - 19 units 07/24/2021 12:06 AM CDT [facility] ([facility]) Comment: ?Negative ? <20 ?Weak positive ?20 - 39 ?Moderate positive ??40 - 59 ?Strong positive ?>59 Blood BLOOD SPECIMEN / Unknown Lab Venipuncture / Unknown 07/22/2021 12:53 PM CDT 07/22/2021 1:07 PM CDT Narrative [facility] ([facility]) - 07/24/2021 12:06 AM CDT Performed at: ??01 - [facility] [address] ??[id number] Insulation Extruder Operator: Daquan Lovell MD, Phone: ??[phone] Anny Serna MD LAB - SEROLOGY ORDERABLES [facility]) [address] [place] [address], [place] documented in this encounter Visit Diagnoses Diagnosis Rheumatoid arthritis, involving unspecified site, unspecified whether rheumatoid factor present (HCC) Therapeutic drug monitoring Encounter for therapeutic drug monitoring documented in this encounter
--- OUTSIDE RECORDS SUMMARY | 2024-10-16 22:31 | XMS_ITS | Encounter Summary ---
Author Organization [facility] Address [address] [facility] [place] [address] Care Team Providers Care Laboratory Technician Name Role Phone Unavailable Primary Care Provider Unavailabl e Reason for Visit * Reason Onset Date Comments Medication Issue 03/15/2022 Encounter Details Date Type Department Care Team (Late st Contact Info) Description 03/15/2022 Telephone [facility] [address] [facility] [place] [phone] Alma Hurtado MD [facility] [place] [address] Medication Issue Social History Tobacco Use Types [...] Encounter - Alma Hurtado MD - 03/23/2022 5:03 PM CDT Called patient, unable to leave voicemail * Telephone Encounter - Alysha Cordova RN - 03/15/2022 4:24 PM CDT Images from the original note were not included. Perez, Heath Rheum Clinical Staff 1 hour ago (3:20 PM) SR Patient was calling in to [facility] in regards to her medication. Patient stated that she wasprescribed XELJANZ XR, and after taking the medication only twice, she felt like the room was spinning, she felt dizzy, and she felt nauseous. Patient stated that she has not taken the medication since. Patient is asking for someone in the office to reach out to her in regards to this medication and to possibly see if there is a different medication she would be able to take. Patient's callback number is [phone]. 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
--- OUTSIDE RECORDS SUMMARY | 2024-10-16 22:31 | XMS_ITS | Encounter Summary ---
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
--- OUTSIDE RECORDS SUMMARY | 2024-10-16 22:31 | XMS_ITS | Encounter Summary ---
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
--- OUTSIDE RECORDS SUMMARY | 2024-10-16 22:31 | XMS_ITS | Encounter Summary ---
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 [address] [facility] [place] [address] Antonio Bowles MD [facility] [facility] [place] [address] 02/01/2025 9:00 AM CDT Appointment [facility] [address] [place] [address] Sultana Sullivan MD [address] [place] [phone] documented as of this encounter Procedures Procedure Name Priority Date/Time Associated Diagnosis Comments URINALYSIS W/MICROSCOPIC NO CULTURE Routine 02/03/2022 10:21 AM CDT Rheumatoid arthritis, involving unspecified site, unspecified whether rheumatoid factor present (HCC) 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 High risk medications (not anticoagulants) long-term use C-REACTIVE PROTEIN Routine 02/03/2022 10 :21 AM CDT Rheumatoid arthritis, involving unspecified site, unspecified whether rheumatoid factor present (HCC) Therapeutic drug monitoring half-way 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 High risk medications (not anticoagulants) long-term use ALDOLASE Routine 02/03/2022 10:21 AM CDT Rheumatoid arthritis, involving unspecified site, unspecified whether rheumatoid factor present (HCC) 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 High risk medications (not anticoagulants) long-term use ERYTHROCYTE SEDIMENTATION RATE Routine 02/03/2022 10:21 AM CDT Rheumatoid arthritis, involving unspecified site, unspecified whether rheumatoid factor present (HCC) Therapeutic drug monitoring half-way 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 High risk medications (not anticoagulants) long-term use CBC W AUTO DIFFERENTIAL Routine 02/03/2022 10:21 AM CDT Rheumatoid arthritis, involving unspecified site, unspecified whether rheumatoid factor present (HCC) 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 High risk medications (not anticoagulants) long-term use COMPREHENSIVE METABOLIC PANEL Routine 02/03/2022 10:21 AM CDT Rheumatoid arthritis, involving unspecified site, unspecified whether rheumatoid factor present (HCC) Therapeutic drug monitoring half-way 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 High risk medications (not anticoagulants) long-term use LDH BLOOD Routine 02/03/2022 10:21 AM CDT Rheumatoid arthritis, involving unspecified site, unspecified whether rheumatoid factor present (HCC) Therapeutic drug monitoring half-way 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 High risk medications (not anticoagulants) long-term use documented in this encounter Results * (ABNORMAL) ERYTHROCYTE SEDIMENTATION RATE (02/03/2022 10:21 AM CDT) Erythrocyte Sedimentation Rate Westergren 67(H) 0 - 30 MM/HR 02/03/2022 11:04 AM CDT [facility] Blood BLOOD SPECIMEN / Unknown Lab Venipuncture / Unknown 02/03/2022 10:21 AM CDT 02/03/2022 10:21 AM CDT Anny Serna MD LAB - HEMATOLOG Y ORDERABLES [address] [address], [facility] [phone] * (ABNORMAL) LDH BLOOD (02/03/2022 10:21 AM CDT) LDH Total 273(H) 125 - 243 Units/L 02/03/2022 11:21 AM CDT [facility] Blood BLOOD SPECIMEN / Unknown Lab Venipuncture / Unknown 02/03/2022 10:21 AM CDT 02/03/2022 10:21 AM CDT Anny Serna MD LAB - CHEMISTRY ORDERABLES [address] [place] [address], [facility] [phone] * (ABNORMAL) COMPREHENSIVE METABOLIC PANEL (02/03/2022 10:21 AM [facility]) BUN 17 7 - 26 mg/dL 02/03/2022 11:21 AM [facility] Creatinine 0.94 0.56 - 0.96 mg/dL 02/03/2022 11:21 AM [facility] Sodium 140 136 - 145 mmol/L 02/03/2022 11:21 AM [facility] Potassium 4.6(H) 3.5 - 4.5 mmol/L 02/03/2022 11:21 AM [facility] Chloride 104 98 - 107 mmol/L 02/03/2022 11:21 AM [facility] CO2 25 22 - 29 mmol/L 02/03/2022 11:21 AM [facility] Glucose 93 70 - 115 mg/dL 02/03/2022 11:21 AM [facility] Calcium 9.6 8.4 - 10.2 mg/dL 02/03/2022 11:21 AM [facility] Protein Total 7.6 6.0 - 8.3 g/dL 02/03/2022 11:21 AM [facility] Albumin 3.3(L) 3.4 - 5.0 g/dL 02/03/2022 11:21 AM [facility] Bilirubin Total 0.4 0.2 - 1.2 mg/dL 02/03/2022 11:21 AM [facility] Alkaline Phosphatase 81 40 - 150 U/L 02/03/2022 11:21 AM [facility] ALT 19 5 - 55 U/L 02/03/2022 11:21 AM [facility] AST 22 5 - 34 U/L 02/03/2022 11:21 AM [facility] Anion Gap 16 8 - 18 02/03/2022 11:21 AM [facility] BUN/Creatinine Ratio 18 7 - 23 02/03/2022 11:21 AM [facility] Osmolality Calculated 291 270 - 300 mOsm/kg 02/03/2022 11:21 AM [facility] Albumin/Globulin Ratio 0.8(L) 1.1 - 2.3 02/03/2022 11:21 AM [facility] eGFR by CKD-EPI 69(L) >=90 mL/min/1.7 3 m2 02/03/2022 11:21 AM [facility] Blood BLOOD SPECIMEN / Unknown Lab Venipuncture / Unknown 02/03/2022 10:21 AM CDT 02/03/2022 10:21 AM CDT Anny Serna MD LAB - CHEMISTRY ORDERABLES [facility] [address] [place] [phone], [facility] [phone] * (ABNORMAL) CBC WITH DIFFERENTIAL (02/03/2022 10:21 AM CDT) WBC 8.5 3.5 - 10.5 10? 3 /uL 02/03/2022 10:57 AM [facility] RBC 4.62 3.80 - 5.20 10? 6 /uL 02/03/2022 10:57 AM [facility] Hemoglobin 13.3 12.0 - 15.6 g/dL 02/03/2022 10:57 AM [facility] Hematocrit 43.1 35.0 - 45.0 % 02/03/2022 10:57 AM [facility] MCV 93.3 80.7 - 98.3 fL 02/03/2022 10:57 AM [facility] MCH 28.8 26.7 - 34.0 pg 02/03/2022 10:57 AM [facility] MCHC 30.9 30.8 - 35.9 g/dL 02/03/2022 10:57 AM [facility] Platelet Count 470(H) 150 - 400 10? 3 /uL 02/03/2022 10:57 AM [facility] RDW-SD 46.2 36.0 - 50.0 fL 02/03/2022 10:57 AM [facility] RDW-CV 13.7 11.2 - 14.8 % 02/03/2022 10:57 AM [facility] MPV 9.7 9.4 - 12.9 fL 02/03/2022 10:57 AM [facility] nRBC Absolute 0.00 0 10? 3 /uL 02/03/2022 10:57 AM [facility] nRBC Auto 0.0 0 /100 WBC 02/03/2022 10:57 AM [facility] Neutrophils % 77.8(H) 35.0 - 70.0 % 02/03/2022 10:57 AM [facility] Lymphocytes % 13.7(L) 20.0 - 43.0 % 02/03/2022 10:57 AM [facility] Monocytes % 4.6(L) 5.0 - 13.0 % 02/03/2022 10:57 AM [facility] Eosinophils % 3.4 0.0 - 6.0 % 02/03/2022 10:57 AM [facility] Basophil % 0.1 0.0 - 2.0 % 02/03/2022 10:57 AM [facility] Neutrophils Absolute 6.6 1.6 - 7.0 10? 3 /uL 02/03/2022 10:57 AM [facility] Lymphocyte Absolute 1.2 1.1 - 3.9 10? 3 /uL 02/03/2022 10:57 AM [facility] Monocytes Absolute 0.39 0.26 - 1.07 10? 3 /uL 02/03/2022 10:57 AM [facility] Eosinophils Absolute 0.29 0.00 - 0.47 10? 3 /uL 02/03/2022 10:57 AM [facility] Basophils Absolute 0.01 0.00 - 0.08 10? 3 /uL 02/03/2022 10:57 AM [facility] Immature Granulocytes % 0.4 0.0 - 1.0 % 02/03/2022 10:57 AM [facility] Immature Granulocytes Absolute 0.03 02/03/2022 10:57 AM [facility] Blood BLOOD SPECIMEN / Unknown Lab Venipuncture / Unknown 02/03/2022 10:21 AM CDT 02/03/2022 10:21 AM CDT Anny Serna MD LAB - HEMATOLOG Y ORDERABLES Performing Organization Address City/[facility]/ZIP Co de Phone Number [address] [address], [facility] [phone] * (ABNORMAL) C-REACTIVE PROTEIN (02/03/2022 10:21 AM CDT) C-Reactive Protein 2.9(H) <=0.5 mg/dL 02/03/2022 11:31 AM T [facility] Blood BLOOD SPECIMEN / Unknown Lab Venipuncture / Unknown 02/03/2022 10:21 AM CDT 02/03/2022 10:21 AM CDT Anny Serna MD LAB - CHEMISTRY ORDERABLES Performing Organization Address [facility]/ZIP Co de Phone Number [address] [address], [facility] [phone] * (ABNORMAL) URINALYSIS W/MICROSCOPIC NO CULTURE (02/03/2022 10:21 AM CDT) Color UA Yellow Straw, Yellow 02/03/2022 11:41 AM [facility] Clarity UA Slt Cloudy(A) Clear 02/03/2022 11:41 AM [facility] Specific [place] UA 1.015 1.005 - 1.030 02/03/2022 11:41 AM [facility] pH UA 5.0 5.0 - 8.0 pH 02/03/2022 11:41 AM [facility] Protein UA Negative Negative 02/03/2022 11:41 AM [facility] Glucose UA Negative Negative 02/03/2022 11:41 AM [facility] Ketone UA Negative Negative 02/03/2022 11:41 AM [facility] Bilirubin UA Negative Negative 02/03/2022 11:41 AM [facility] Blood UA Negative Negative 02/03/2022 11:41 AM CDT [facility] Nitrite UA Negative Negative 02/03/2022 11:41 AM CDT [facility] Leukocyte Esterase 2+(A) Negative 02/03/2022 11:41 AM CDT [facility] Urobilinogen UA Negative Negative mg/dL 02/03/2022 11:41 AM CDT [facility] RBC UA 0-2 None Seen, 0-2, 3-5 /HPF 02/03/2022 11:41 AM CDT [facility] WBC UA 6-10(A) None Seen, 0-5 /HPF 02/03/2022 11:41 AM CDT [facility] Squamous Epithelial Cells UA 3-5 None Seen, 0-2, 3-5 /HPF 02/03/2022 11:41 AM CDT [facility] Mucus UA 1+ /LPF 02/03/2022 11:41 AM CDT [facility] Hyaline Casts UA 0-2 None Seen, 0-2 /LPF 02/03/2022 11:41 AM CDT [facility] Urine URINE SPECIMEN OBTAINED BY CLEAN CATCH PROCEDURE / Unknown Collection / Unknown 02/03/2022 10:21 AM CDT 02/03/2022 10:21 AM CDT Narrative [facility] - 02/03/2022 11:41 AM CDT Anny Serna MD LAB - URINALYSI S ORDERABLES [facility] [address] [place] [address], [facility] [phone] * (ABNORMAL) ALDOLASE (02/03/2022 10:21 AM CDT) Aldolase 10.4(H) 1.2 - 7.6 U/L 02/04/2022 5:45 PM CDT [facility] ([facility]) Comment: This specimen is Hemolyzed. This may cause the results to be falsely increased. REFERENCE INTERVAL: Aldolase Access complete set of age- and/or gender-specific reference intervals for this test in the [facility] Test Directory ([employer]). Performed By: [facility] [address] [place] [id number] Dampproofer: Beverley Rueda MD Blood BLOOD SPECIMEN / Unknown Lab Venipuncture / Unknown 02/03/2022 10:21 AM CDT 02/03/2022 10:21 AM CDT Anny Serna MD LAB - CHEMISTRY ORDERABLES Performing Organization Address City/State/[facility] Co de Phone Number [facility] ([facility]) [address] documented in this encounter Visit Diagnoses Diagnosis Rheumatoid arthritis, involving unspecified site, unspecified whether rheumatoid factor present (HCC) Therapeutic drug monitoring Encounter for therapeutic drug monitoring half-way 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 High risk medications (not anticoagulants) long-term use Encounter for long-term (current) use of other medications documented in this encounter
--- OUTSIDE RECORDS SUMMARY | 2024-10-16 22:31 | XMS_ITS | Encounter Summary ---
Author Organization [facility] Address [address] [place] [address] Care Team Providers Care Outsole Scheduler Name Role Phone Unavailable Primary Care Provider Unavailabl e Reason for Visit * Reason Comments Arthritis Establish Care Results * Consult, Test & Treat (Routine) - Closed Specialty Diagnoses / Procedures Referred By Contac t Referred To Contact Rheumatology Diagnoses Rheumatoid arthritis, unspecified (HCC) Marvin Davis [address] [place] [address] Referral ID Status Reason Start Date Expiration Date Visits Re quested Visits Authorized [id number] Closed 06/12/2021 06/12/2022 1 1 Encounter Details Date Type Department Care Team ([facility] st Contact Info) Description 07/22/2021 9:30 AM CDT Office Visit [facility] [address] [place] [address] Alma Hurtado MD [address] [place], [place] [id number] Rheumatoid arthritis, involving unspecified site, unspecified whether [...] Sign Reading Time Taken Comments Blood Pressure 110/68 07/22/2021 9:53 AM CDT Pulse - - Temperature 36.7 ??C (98 ??F) 07/22/2021 9:53 AM CDT Respiratory Rate - - Oxygen Saturation - - Inhaled Oxygen Concentration - - Weight 51.3 kg (113 lb) 07/22/2021 9:53 AM CDT Height 152.4 cm (5') 07/22/2021 9:53 AM CDT Body Mass Index 22.07 07/22/2021 9:53 AM CDT documented in this encounter Patient Instructions * Patient Instructions* Alma Hurtado MD - 07/22/2021 11:23 AM CDT Images from the original note were not included. You were seen for Rheumatoid Arthritis Please have labs and imaging done We will start you on naproxen twice daily to help with inflammation Once labs are obtained, we can talk further about the treatments at the next visit We recommend you get the covid vaccine-we can help with short term steroids if you develop any inflammation. Please return to clinic next Jul 29 at 8:30 AM If you need to change or cancel your Rheumatology appointment - At the [facility] ([facility]) at [facility] [facility], call [phone]. If you need a refill request, have your pharmacy fax a request to [phone]. If you need to leave a message for Dr. Hurtado you can send her an electronic message via Home[employer] or leave a voicemail at [phone]. Her office FAX number is [phone]. For after hours emergency only, you can call the [facility] knotting machine operator at [phone] and ask for the Exercise Instructor car electronics installer to be paged. Patient Education Rheumatoid Arthritis TEST SPECIALIST: Rheumatoid arthritis is a long-term autoimmune disease that causes inflammation and damage to your joints. RA causes your body's immune system to attack the synovial membrane (lining) in your joints.RA can also affect other organs, such as your eyes, heart, or lungs. It may also increase your riskof osteoporosis (weakened bones). Common symptoms include the following: ?? Joint pain and stiffness that lasts longer than 1 hour ?? Swollen joints in the same joint on both sides of your body ?? Loss of joint movement ?? Firm, round nodules (growths) on your joints ?? Fatigue or muscle weakness ?? Loss of appetite or weight loss Call your doctor or sample box maker if: ?? You have a fever. ?? You have increased joint swelling, pain, or redness. ?? Your skin is itchy, swollen, or has a rash. ?? Your symptoms are getting worse, even with treatment. ?? You have questions or concerns about your condition or care. Treatment: The goal of treatment within the first year is remission (no pain or inflammation). If full remission cannot be reached, the goal is as few arthritis flares as possible. Early treatment can also help prevent or slow joint damage. Treatment may change after the first year, depending on how your body responds. ?? Antirheumatics help slow the progress of RA, and reduce pain, stiffness, and inflammation. ?? NSAIDs , such as ibuprofen, help decrease swelling, pain, and fever. This medicine is available with or without a doctor's order. NSAIDs can cause stomach bleeding or kidney problems in certain people. If you take blood thinner medicine, always ask your healthcare provider if NSAIDs are safe foryou. Always read the medicine label and follow directions. ?? Steroids help decrease inflammation. ?? Biologic therapy helps decrease joint swelling, pain, and stiffness. These medicines increase the risk of serious infection and need careful monitoring. ?? Surgery may be needed to remove all or part of your joint. An implant may be placed to help reduce pain and repair the joint. Manage your symptoms: ?? Rest when needed. Rest is important if your joints are painful. Limit your activities until yoursymptoms improve. Gradually start your normal activities when you can do them without pain. Avoid motions and activities that cause strain on your joints, such as heavy exercise and lifting. ?? Use ice or heat. Both can help decrease swelling and pain. Ice may also help prevent tissue damage. Use an ice pack, or put crushed ice in a plastic bag. Cover it with a towel and place it on yourjoint for 15 to 20 minutes every hour or as directed. You can apply heat for 20 minutes every 2 hours. Heat treatment includes hot packs, heat lamps, warm baths, or showers. ?? Elevate your joint. Elevation helps reduce swelling and pain. Raise your joint above the level of your heart as often as you can. Prop your painful joint on pillows to keep it above your heart comfortably. Manage RA: ?? Talk to your healthcare providers about your arthritis medicines. Some medicines may only be needed when you have arthritis pain. You may need to take other medicines every day to prevent arthritis from getting worse. Your healthcare providers will help you understand all your medicines and whento take them. It is important to take the medicines as directed, even if you start to feel better. You can continue to have joint damage and inflammation even if you do not feel it. ?? Eat a variety of healthy foods. Healthy foods include fruits, vegetables, whole-grain breads, low-fat dairy products, beans, lean meats, and fish. Ask if you need to be on a special diet. A diet rich in calcium and vitamin D may decrease your risk of osteoporosis. Foods high in calcium include milk, cheese, broccoli, and tofu. Vitamin D may be found in meat, fish, fortified milk, cereal and bread. Ask if you need calcium or vitamin D supplements. ?? Maintain a healthy weight. This may help decrease strain on joints in your back, knees, ankles, and feet. Ask your healthcare provider what a healthy weight is for you. Ask him or her to help you create a weight loss plan if you are overweight. Exercise can help you maintain a healthy weight. ?? Go to physical or occupational therapy as directed. Physical activity can help relieve pain and stiffness. A physical therapist can teach you exercises to improve flexibility and range of motion. You may also be shown [id number] exercises that are safe for your joints, such as swimming. An occupational therapist can help you learn to do your daily activities when your joints are stiff or sore. ?? Do not smoke. Nicotine and other chemicals in cigarettes and cigars can damage your bones and joints. Ask your healthcare provider for information if you currently smoke and need help to quit. E-cigarettes or smokeless tobacco still contain nicotine. Talk to your healthcare provider before you use these products. RA medicines and : ?? Men: Talk to your doctor about your RA and the medicines you take. Some medicines may keep your partner from getting . Talk to your doctor if you and your partner are discussing . ?? Women: Talk to your snailer about contraceptives. Tell him or her about your RA and what medicines you take. He or she will tell you what the best contraceptive for will be. Not all contraceptives are effective if you have RA and are taking certain medicines. You may not be able to breastfeed if you are taking certain RA medicines. Support devices to help manage arthritis: ?? Orthotic shoes or insoles help support your feet when you walk. ?? Crutches, a cane, or a walker may help decrease your risk for falling. They also decrease stresson affected joints. ?? Devices to prevent falls include raised toilet seats and bathtub bars to help you get up from sitting. Handrails can be placed in areas where you need balance and support. ?? Devices to help with support and rest include splints to wear on your hands and a firm pillow while you sleep. Use a pillow that is firm enough to support your neck and head. Ask your healthcare provider about vaccines: RA or its treatment may increase your risk for infections. Vaccines can help protect you from infections caused by certain bacteria or viruses. Follow up with your healthcare provider as directed: Write down your questions so you remember to ask them during your visits. ?? Copyright [employer] 2020 Information is for End User's use only and may not be sold, redistributed or otherwise used for commercial purposes. All illustrations and images included in CareNotes?? are the copyrighted property of [employer], [employer]. or [employer] The above information is an activities aide only. It is not intended as medical advice for individual conditions or treatments. Talk to your doctor, nurse or pharmacist before following any medical regimen to see if it is safe and effective for you. documented in this encounter Progress Notes * Anny Serna MD - 07/22/2021 10:56 AM CDT I have seen and examined the patient, reviewed available medical records, and agree with the findings, assessment, and plan as documented by Dr. Hurtado. Please see her note for full details. Patient notes joint pain for years. Notes shoulders first, then knees, ankles, neck, hands. Notes arm and leg pain. 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 Notes swelling in hands in 5th PIPs bilaterally. PCP tried to manage over the phone. Mk takes some edge off - 220 mg once or twice a day. She wasalso started on another medication of unknown name - possible MTX? ROS: Neg FMH: Neg Exam: C spine tenderness Shoulder TTP and PROM Left elbow TTP - slight flexion contracture Bilateral 2nd and 3rd MCPs S1T1, 4th-5th SfT1 Ulnar deviation left hand Bilateral 5th PIPS S1T1 Wrist decrease extension bilaterally, pain with ROM, left wrist decrease flexion Knees tender bilat Bilateral MTP fullness +midfoot squeeze bilateraly Ankles S0T1 A/P: 61 year old female with likely new diagnosis of seropositive RA, given fairly symmetric pain and swelling of small joints, high positive anti CCP. Still needs XRs. Needs screening for hepatitis, TB. Anticipate starting MTX on RTC. May also need biologic in future. Increase naproxen to 500 mg bid. Anny Serna MD Adult and Pediatric Rheumatology * Alma Hurtado MD - 07/22/2021 10:30 AM CDT [facility] Visit New Patient Note Patient: Sultana Vincent, : 1960 PCP: No primary care provider on file. Referring Physician: Marvin Davis [address] [place] [address] Chief Complaint Patient presents with ??? Arthritis ??? Establish Care ??? Results HPI: Sultana Vincent is a 61 year old female presenting for evaluation of longstanding arthritis She has had joint pain for many years: shoulders knees, hands, ankles, neck. 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 Hands stiff all day, worst in the morning lasting 30 mins, and has trouble making a fist. Feels achy all over and improves with rest. +CCP >250 in March, then started on some medications (spoke with Drs office and her meds were: hydroxychloroquin 200 mg qd, naproxen 500 mg bid, tramadol, vitD 50,000 units). . She is taking Aleve arthritis strength 1 pill 1-2 times daily which takes the edge off. Patient appears not to be taking the other meds currently and may have felt they were ineffective She has pertinent PMH of former tobacco user s/p auriculotherapy to quit smoking. Denies eye pain or pulmonary issues, no FH of autoimmune disease. She is very hesitant regarding starting any immune suppressing medications and is worried about side effects. No alcohol or previous liver disease. Review of Systems: General: -fever, -wt loss/gain, [...] Date ??? Bilateral Tubal Ligation (BTL) Social History: Social History Tobacco Use ??? Smoking status: Former Smoker Packs/day: 0.50 Years: 20.00 Pack years: 10.00 Quit date: 03/10/2021 Years since quittin.3 ??? Smokeless tobacco: Never Used Vaping Use ??? Vaping Use: Never used Substance Use Topics ??? Alcohol use: Never ??? Drug use: Never Family History: Review of family history is not on file. Current Medications: Current Outpatient Medications Medication Sig Dispense Refill ??? naproxen (NAPROSYN) 500 MG tablet Take 1 (one) tablet by mouth 2 times daily 180 tablet 4 No current facility-administered medications for this visit. Allergies: Iodine Physical Exam: BP 110/68 Temp 98 ??F (36.7 ??C) (Oral) Ht 5' (1.524 m) Wt 113 lb (51.3 kg) BMI 22.07 kg/m2 General: no distress, cooperative, Skin: no rash or lesions, no color change or livedo reticularis, normal temperature & turgor HEENT: conjunctivae and sclerae clear, PERRLA, EOMI, external ear normal, no oral or nasal ulceration, mucus membranes moist Neck: supple, normal ROM, no LAD Back: symmetric, no curvature, normal ROM, no paraspinal tenderness, no SI tenderness Chest/Lungs: lungs CTAB Heart: RRR, no murmur, no rub or gallop Abdomen: soft, non-tender, non-distended, no HSM Neurologic: grossly intact, alert, muscle strength 4+/5 Musculoskeletal Exam: Neck: T1 at c spine, otherwise T0 shoulders: S0T1 Elbows: S0T1 Hands: ulnar deviation R 5th PIP S1T1 L 2,3,5th MCPs S1T1 5th PIP S1T1 diffuse tenderness of MCPs and PIPs restricted wrist extension bilaterally, mild elbow ROM restriction hips: bolanos Knees: S0T1 Feet: bilateral fullness of MTP heads +midfoot squeeze +tender ankle dorsum (tops of feet) ROM limited due to pain classroom instructor strength 4-/5 Labs: CCP>250 in 03/2021 Diagnostics: none available Assessment/Plan: Sultana Vincent is a 61 year old female with seropositive RA (+CCP). She is currently on prn naproxen with mild partial improvement. On exam she has small joint synovitis, ulnar deviation, reduced classroom instructor strength, and motion deficits signifying long standing disease. She would be a good candidate formethotrexate, but suspect she will need biologic therapy for full disease control. While she does indicate she does not want to sustain further joint damage or live with pain, she is very hesitant and anxious about immune suppressing side effects of medications for her RA. We also discussed covid immunization and she is hesitant due to concern that it will make her joints hurt more. She would notlike to utilize prednisone for any flares. She is interested in herbs and supplements to control her disease. We discussed her highly active RA at length and have counseled her regarding the need forDMARD therapy. She will need further counseling and reinforcement. Will start with labs and imagingas below, then bring her back for close follow up and discussion of therapies. 1. Labs: As below 2. Radiology: as below 3. Medications: continue naproxen 500 mg bid 4. Other: 5. RTC in 1 week Patient seen and examined with Dr. Serna. Alma Hurtado MD Rheumatology Fellow Department of Internal Medicine [facility] Orders Placed This Encounter ??? XR CHEST 2VW Standing Status: Future Number of Occurrences: 1 Standing Expiration Date: 07/22/2022 Order Specific Question: Release to patient Answer: Immediate ??? XR FOOT RIGHT 3VW OR MORE Standing Status: Future Number of Occurrences: 1 Standing Expiration Date: 07/22/2022 Order Specific Question: Release to patient Answer: Immediate ??? XR FOOT LEFT 3VW OR MORE Standing Status: Future Number of Occurrences: 1 Standing Expiration Date: 07/22/2022 Order Specific Question: Release to patient Answer: Immediate ??? XR HAND LEFT 3VW OR MORE Standing Status: Future Number of Occurrences: 1 Standing Expiration Date: 07/22/2022 Order Specific Question: Release to patient Answer: Immediate ??? XR HAND RIGHT 3VW OR MORE Standing Status: Future Number of Occurrences: 1 Standing Expiration Date: 07/22/2022 Order Specific Question: Release to patient Answer: Immediate ??? XR CERVICAL SPINE 4 OR 5VW Standing Status: Future Number of Occurrences: 1 Standing Expiration Date: 07/22/2022 Order Specific Question: Release to patient Answer: Immediate Order Specific Question: Which views are required? Answer: Radiologist Protocol Views ??? XR KNEE LEFT 3VW Standing Status: Future Number of Occurrences: 1 Standing Expiration Date: 07/22/2022 Order Specific Question: Release to patient Answer: Immediate ??? XR KNEE RIGHT 3VW Standing Status: Future Number of Occurrences: 1 Standing Expiration Date: 07/22/2022 Order Specific Question: Release to patient Answer: Immediate ??? XR SHOULDER LEFT 2VW OR MORE Standing Status: Future Number of Occurrences: 1 Standing Expiration Date: 07/22/2022 Order Specific Question: Release to patient Answer: Immediate Order Specific Question: Which views are required? Answer: Radiologist Protocol Views ??? XR SHOULDER RIGHT 2VW OR MORE Standing Status: Future Number of Occurrences: 1 Standing Expiration Date: 07/22/2022 Order Specific Question: Release to patient Answer: Immediate Order Specific Question: Which views are required? Answer: Radiologist Protocol Views ??? XR ELBOW RIGHT 3VW OR MORE Standing Status: Future Number of Occurrences: 1 Standing Expiration Date: 07/22/2022 Order Specific Question: Release to patient Answer: Immediate ??? XR ELBOW LEFT 3VW OR MORE Standing Status: Future Number of Occurrences: 1 Standing Expiration Date: 07/22/2022 Order Specific Question: Release to patient Answer: Immediate ??? CYCLIC CITRUL PEPTIDE ANTIBODY IGG/IGA (CCP) Standing Status: Future Number of Occurrences: 1 Standing Expiration Date: 08/16/2022 Order Specific Question: Release to patient Answer: Immediate ??? RHEUMATOID FACTOR BLOOD QUANTITATIVE Standing Status: Future Number of Occurrences: 1 Standing Expiration Date: 08/16/2022 Order Specific Question: Release to patient Answer: Immediate ??? CBC WITH DIFFERENTIAL Standing Status: Future Number of Occurrences: 1 Standing Expiration Date: 08/16/2022 Order Specific Question: Release to patient Answer: Immediate ??? COMPREHENSIVE METABOLIC PANEL Standing Status: Future Number of Occurrences: 1 Standing Expiration Date: 08/16/2022 Order Specific Question: Release to patient Answer: Immediate ??? C-REACTIVE PROTEIN Standing Status: Future Number of Occurrences: 1 Standing Expiration Date: 08/16/2022 Order Specific Question: Release to patient Answer: Immediate ??? ERYTHROCYTE SEDIMENTATION RATE Standing Status: Future Number of Occurrences: 1 Standing Expiration Date: 08/16/2022 Order Specific Question: Release to patient Answer: Immediate ??? URINALYSIS W/MICROSCOPIC NO CULTURE Standing Status: Future Number of Occurrences: 1 Standing Expiration Date: 08/16/2022 Order Specific Question: Release to patient Answer: Immediate ??? VITAMIN D 25-HYDROXY Standing Status: Future Number of Occurrences: 1 Standing Expiration Date: 08/16/2022 Order Specific Question: Release to patient Answer: Immediate ??? QUANTIFERON-TB GOLD PLUS 4-TUBE Standing Status: Future Number of Occurrences: 1 Standing Expiration Date: 07/17/2022 Order Specific Question: Release to patient Answer: Immediate ??? HEPATITIS B CORE ANTIBODY Standing Status: Future Number of Occurrences: 1 Standing Expiration Date: 08/16/2022 Order Specific Question: Release to patient Answer: Immediate ??? HEPATITIS B SURFACE ANTIBODY Standing Status: Future Number of Occurrences: 1 Standing Expiration Date: 08/16/2022 Order Specific Question: Release to patient Answer: Immediate ??? HEPATITIS B SURFACE ANTIGEN W RFLX CONFIRMATION Standing Status: Future Number of Occurrences: 1 Standing Expiration Date: 08/16/2022 Order Specific Question: Release to patient Answer: Immediate ??? HEPATITIS C ANTIBODY Standing Status: Future Number of Occurrences: 1 Standing Expiration Date: 08/16/2022 Order Specific Question: Release to patient Answer: Immediate ??? ALDOLASE Standing Status: Future Number of Occurrences: 1 Standing Expiration Date: 08/16/2022 Order Specific Question: Release to patient Answer: Immediate ??? CK BLOOD Standing Status: Future Number of Occurrences: 1 Standing Expiration Date: 08/16/2022 Order Specific Question: Release to patient Answer: Immediate ??? LDH BLOOD Standing Status: Future Number of Occurrences: 1 Standing Expiration Date: 08/16/2022 Order Specific Question: Release to patient Answer: Immediate ??? DISCONTD: naproxen (NAPROSYN) 500 MG tablet Sig: Take 1 (one) tablet by mouth 2 times daily Dispense: 180 tablet Refill: 1 ??? 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 [facility] [facility], [place] [id number] Antonio Bowles MD [address] [facility] [place] [address] 02/01/2025 9:00 AM CDT Appointment [facility] [address] [place] [address] Sultana Sullivan MD [facility] [place] [address] documented as of this encounter Results * (ABNORMAL) URINALYSIS W/MICROSCOPIC NO CULTURE (07/22/2021 12:56 PM CDT) Color UA Yellow Straw, Yellow 07/22/2021 1:17 PM [facility] Clarity UA Slt Cloudy(A) Clear 07/22/2021 1:17 PM [facility] Specific [place] UA 1.019 1.005 - 1.030 07/22/2021 1:17 PM [facility] pH UA 5.0 5.0 - 8.0 pH 07/22/2021 1:17 PM [facility] Protein UA Negative Negative 07/22/2021 1:17 PM [facility] Glucose UA Negative Negative 07/22/2021 1:17 PM [facility] Ketone UA Negative Negative 07/22/2021 1:17 PM [facility] Bilirubin UA Negative Negative 07/22/2021 1:17 PM [facility] Blood UA 1+(A) Negative 07/22/2021 1:17 PM [facility] Nitrite UA Negative Negative 07/22/2021 1:17 PM [facility] Leukocyte Esterase 3+(A) Negative 07/22/2021 1:17 PM [facility] Urobilinogen UA Negative Negative mg/dL 07/22/2021 1:17 PM [facility] RBC UA 6-10(A) None Seen, 0-2, 3-5 /HPF 07/22/2021 1:17 PM CDT [facility] WBC UA 11-20(A) None Seen, 0-5 /HPF 07/22/2021 1:17 PM CDT [facility] Bacteria UA Trace(A) None /HPF 07/22/2021 1:17 PM CDT [facility] Squamous Epithelial Cells UA 6-10(A) None Seen, 0-2, 3-5 /HPF 07/22/2021 1:17 PM CDT [facility] Mucus UA 1+ /LPF 07/22/2021 1:17 PM CDT [facility] Urine URINE SPECIMEN OBTAINED BY CLEAN CATCH PROCEDURE / Unknown Collection / Unknown 07/22/2021 12:56 PM CDT 07/22/2021 1:17 PM CDT Narrative [facility] - 07/22/2021 1:17 PM CDT Anny Serna MD LAB - URINALYSI S ORDERABLES Performing Organization Address City/[facility]/ZIP Co de Phone Number [address] [address], [facility] [phone] * (ABNORMAL) LDH BLOOD (07/22/2021 12:53 PM CDT) LDH Total 282(H) 125 - 243 Units/L 07/22/2021 1:45 PM CDT [facility] Blood BLOOD SPECIMEN / Unknown Lab Venipuncture / Unknown 07/22/2021 12:53 PM CDT 07/22/2021 1:14 PM CDT Anny Serna MD LAB - CHEMISTRY ORDERABLES [address] [address], [facility] [phone] * (ABNORMAL) CK BLOOD (07/22/2021 12:53 PM CDT) CK Total 24(L) 30 - 200 U/L 07/22/2021 1:45 PM CDT [facility] Blood BLOOD SPECIMEN / Unknown Lab Venipuncture / Unknown 07/22/2021 12:53 PM CDT 07/22/2021 1:14 PM CDT Anny Serna MD LAB - CHEMISTRY ORDERABLES Performing Organization Address City/[facility] Co de Phone Number [facility] [address] [place] [address], [facility] [phone] * ALDOLASE (07/22/2021 12:53 PM CDT) Aldolase 4.5 1.5 - 8.1 U/L 07/24/2021 12:12 PM CDT [facility] [email or web address] ([facility]) Comment: REFERENCE INTERVAL: Aldolase Access complete set of age- and/or gender-specific reference intervals for this test in the [facility] Test Directory ([employer] Performed By: [employer] [address] [place] [address] Veneer Measurer: Beverley Rueda MD Blood BLOOD SPECIMEN / Unknown Lab Venipuncture / Unknown 07/22/2021 12:53 PM CDT 07/22/2021 1:07 PM CDT Anny Serna MD LAB - CHEMISTRY ORDERABLES Performing Organization Address [facility] Co de Phone Number [facility]) [address] * HEPATITIS C ANTIBODY (07/22/2021 12:53 PM CDT) Pathologist [facility] Hepatitis C Antibody Non-react sergio Non-reac tive 07/22/2021 2:25 PM CDT [facility] Comment:Hepatitis C Antibody screen indicates [...] LAB - CHEMISTRY ORDERABLES Performing Organization Address [facility]/ZIP Co de Phone Number [facility] [address] [place] [address], [facility] [phone] * HEPATITIS B SURFACE ANTIGEN W RFLX CONFIRMATION (07/22/2021 12:53 PM CDT) Pathologist [facility] Hepatitis B Virus Surface Antigen Non-reacti ve Non-reacti ve 07/22/2021 2:25 PM CDT [facility] Blood BLOOD SPECIMEN / Unknown Lab Venipuncture / Unknown 07/22/2021 12:53 PM CDT 07/22/2021 1:07 PM CDT Anny Serna MD LAB - CHEMISTRY ORDERABLES Performing Organization Address [facility] Co de Phone Number [facility] [address] [place] [address], [facility] [phone] * HEPATITIS B SURFACE ANTIBODY (07/22/2021 12:53 PM CDT) [facility] Hepatitis B Virus Surface Antibody Non-react sergio Non-react sergio 07/22/2021 2:25 PM CDT [facility] Comment: < 8 mIU/mL Hepatitis B surface Antibody (HBsAb). Nonreactive for HBsAb - individual is considered not immune to Hepatitis B Virus infection. Hepatitis B Surface Antibody Quantitative 0.0 <8.0 mIU/mL 07/22/2021 2:25 PM CDT [facility] Comment: Hepatitis B Surface Antibody Numeric Result Interpretation: ? Nonreactive: ?<8.0 mIU/mL ? Indeterminate: ??8.0 - 12.0 mIU/mL ? Reactive: ?>12.0 mIU/mL ? Blood BLOOD SPECIMEN / Unknown Lab Venipuncture / Unknown 07/22/2021 12:53 PM CDT 07/22/2021 1:07 PM CDT Anny Serna MD LAB - CHEMISTRY ORDERABLES Performing Organization Address City/[facility]/ZIP Co de Phone Number [address] [address], [facility] [phone] * HEPATITIS B CORE ANTIBODY (07/22/2021 12:53 PM CDT) [facility] HBc Antibody Total Non-reacti ve Non-reacti ve 07/22/2021 2:25 PM CDT [facility] Blood BLOOD SPECIMEN / Unknown Lab Venipuncture / Unknown 07/22/2021 12:53 PM CDT 07/22/2021 1:07 PM CDT Anny Serna MD LAB - CHEMISTRY ORDERABLES Performing Organization Address [facility] Co de Phone Number [address] [address], [place] [phone] * QUANTIFERON-TB GOLD PLUS 4-TUBE (07/22/2021 12:53 PM CDT) [facility] QuantiFERON NIL 0.02 IU/mL 5:35 PM CDT [facility]) Comment: Performed By: [employer] [address] [place] [id number] Veneer Measurer: Beverley Rueda MD QuantiFERON TB Gold Plus Negative Negative 07/26/2021 5:35 PM CDT [facility]) Comment: Interpretive Data: Quantiferon TB Gold Plus [...] Mycobacterium tuberculosis Infection --- [place], 2010 (http://www.cdc.gov/mmwr/preview/mmwrhtml/mu2295g4.htm), for more information concerning test performance in low-prevalence populations and use in occupational screening. QuantiFERON Plus TB1 Minus NIL 0.00 0.00 - 0.34 IU/mL 07/26/2021 5:35 PM CDT [facility] ([facility]) QuantiFERON Plus TB2 Minus NIL 0.00 0.00 - 0.34 IU/mL 07/26/2021 5:35 PM CDT [facility]) QuantiFERON Mitogen Minus NIL >10.00 IU/mL 07/26/2021 5:35 PM CDT [facility]) Blood BLOOD SPECIMEN / Unknown Lab Venipuncture / Unknown 07/22/2021 12:53 PM CDT 07/22/2021 1:07 PM CDT Anny Serna MD LAB - CHEMISTRY ORDERABLES Performing Organization Address City/State/[facility] Co de Phone Number [facility]) [address] * VITAMIN D 25-HYDROXY (07/22/2021 12:53 PM CDT) [facility] Vitamin D, 25 Hydroxy 38.0 30.0 - 80.0 ng/mL 07/22/2021 1:58 PM CDT [facility] Comment: The recommendations for 25-Hydroxy [...] LAB - CHEMISTRY ORDERABLES Performing Organization Address City/[facility] Co de Phone Number [address] [address], [facility] [phone] * (ABNORMAL) ERYTHROCYTE SEDIMENTATION RATE (07/22/2021 12:53 PM CDT) Erythrocyte Sedimentation Rate Westergren 46(H) 0 - 30 MM/HR 07/22/2021 1:51 PM CDT [facility] Blood BLOOD SPECIMEN / Unknown Lab Venipuncture / Unknown 07/22/2021 12:53 PM CDT 07/22/2021 1:14 PM CDT Anny Serna MD LAB - HEMATOLOG Y ORDERABLES Performing Organization Address [facility] Co de Phone Number [address] [address], [place] [phone] * (ABNORMAL) C-REACTIVE PROTEIN (07/22/2021 12:53 PM CDT) C-Reactive Protein 4.5(H) <=0.5 mg/dL 07/22/2021 2:06 PM CDT [facility] Blood BLOOD SPECIMEN / Unknown Lab Venipuncture / Unknown 07/22/2021 12:53 PM CDT 07/22/2021 1:07 PM CDT Anny Serna MD LAB - CHEMISTRY ORDERABLES [facility] [address] [place] [address], [facility] [phone] * (ABNORMAL) COMPREHENSIVE METABOLIC PANEL (07/22/2021 12:53 PM CDT) BUN 17 7 - 26 mg/dL 07/22/2021 1:45 PM [facility] Creatinine 0.67 0.56 - 0.96 mg/dL 07/22/2021 1:45 PM [facility] Sodium 138 136 - 145 mmol/L 07/22/2021 1:45 PM [facility] Potassium 4.4 3.5 - 4.5 mmol/L 07/22/2021 1:45 PM [facility] Chloride 100 98 - 107 mmol/L 07/22/2021 1:45 PM [facility] CO2 25 22 - 29 mmol/L 07/22/2021 1:45 PM [facility] Glucose 95 70 - 115 mg/dL 07/22/2021 1:45 PM [facility] Calcium 9.9 8.4 - 10.2 mg/dL 07/22/2021 1:45 PM [facility] Protein Total 7.9 6.0 - 8.3 g/dL 07/22/2021 1:45 PM [facility] Albumin 3.5 3.4 - 5.0 g/dL 07/22/2021 1:45 PM [facility] Bilirubin Total 0.3 0.2 - 1.2 mg/dL 07/22/2021 1:45 PM [facility] Alkaline Phosphatase 78 40 - 150 U/L 07/22/2021 1:45 PM [facility] ALT 12 5 - 55 U/L 07/22/2021 1:45 PM [facility] AST 19 5 - 34 U/L 07/22/2021 1:45 PM [facility] Anion Gap 17 8 - 18 07/22/2021 1:45 PM [facility] BUN/Creatinine Ratio 25(H) 7 - 23 07/22/2021 1:45 PM [facility] Osmolality Calculated 287 270 - 300 mOsm/kg 07/22/2021 1:45 PM [facility] Albumin/Globulin Ratio 0.8(L) 1.1 - 2.3 07/22/2021 1:45 PM [facility] eGFR by CKD-EPI >90 >=90 mL/min/1.7 3 m2 07/22/2021 1:45 PM [facility] Blood BLOOD SPECIMEN / Unknown Lab Venipuncture / Unknown 07/22/2021 12:53 PM CDT 07/22/2021 1:14 PM CDT Anny Serna MD LAB - CHEMISTRY ORDERABLES [facility] [address] [place] [address], [facility] [phone] * (ABNORMAL) CBC WITH DIFFERENTIAL (07/22/2021 12:53 PM CDT) WBC 6.1 3.5 - 10.5 10? 3 /uL 07/22/2021 1:38 PM [facility] RBC 4.76 3.80 - 5.20 10? 6 /uL 07/22/2021 1:38 PM [facility] Hemoglobin 13.3 12.0 - 15.6 g/dL 07/22/2021 1:38 PM [facility] Hematocrit 42.3 35.0 - 45.0 % 07/22/2021 1:38 PM [facility] MCV 88.9 80.7 - 98.3 fL 07/22/2021 1:38 PM [facility] MCH 27.9 26.7 - 34.0 pg 07/22/2021 1:38 PM [facility] MCHC 31.4 30.8 - 35.9 g/dL 07/22/2021 1:38 PM [facility] Platelet Count 564(H) 150 - 400 10? 3 /uL 07/22/2021 1:38 PM [facility] RDW-SD 42.1 36.0 - 50.0 fL 07/22/2021 1:38 PM [facility] RDW-CV 12.9 11.2 - 14.8 % 07/22/2021 1:38 PM [facility] MPV 9.4 9.4 - 12.9 fL 07/22/2021 1:38 PM [facility] nRBC Absolute 0.00 0 10? 3 /uL 07/22/2021 1:38 PM [facility] nRBC Auto 0.0 0 /100 WBC 07/22/2021 1:38 PM [facility] Neutrophils % 68.4 35.0 - 70.0 % 07/22/2021 1:38 PM [facility] Lymphocytes % 22.1 20.0 - 43.0 % 07/22/2021 1:38 PM [facility] Monocytes % 7.0 5.0 - 13.0 % 07/22/2021 1:38 PM [facility] Eosinophils % 1.8 0.0 - 6.0 % 07/22/2021 1:38 PM [facility] Basophil % 0.2 0.0 - 2.0 % 07/22/2021 1:38 PM [facility] Neutrophils Absolute 4.2 1.6 - 7.0 10? 3 /uL 07/22/2021 1:38 PM [facility] Lymphocyte Absolute 1.4 1.1 - 3.9 10? 3 /uL 07/22/2021 1:38 PM [facility] Monocytes Absolute 0.43 0.26 - 1.07 10? 3 /uL 07/22/2021 1:38 PM [facility] Eosinophils Absolute 0.11 0.00 - 0.47 10? 3 /uL 07/22/2021 1:38 PM [facility] Basophils Absolute 0.01 0.00 - 0.08 10? 3 /uL 07/22/2021 1:38 PM [facility] Immature Granulocytes % 0.5 0.0 - 1.0 % 07/22/2021 1:38 PM [facility] Immature Granulocytes Absolute 0.03 07/22/2021 1:38 PM [facility] Blood BLOOD SPECIMEN / Unknown Lab Venipuncture / Unknown 07/22/2021 12:53 PM CDT 07/22/2021 1:14 PM CDT Anny Serna MD LAB - HEMATOLOG Y ORDERABLES Performing Organization Address [facility] Co de Phone Number [address] [address], [facility] [phone] * (ABNORMAL) RHEUMATOID FACTOR BLOOD QUANTITATIVE (07/22/2021 12:53 PM CDT) Rheumatoid Factor 59(H) <30 IU/mL 07/22/2021 2:06 PM CDT [facility] Rheumatoid Factor Screen Positive( A) Negative 07/22/2021 2:06 PM CDT [facility] Blood BLOOD SPECIMEN / Unknown Lab Venipuncture / Unknown 07/22/2021 12:53 PM CDT 07/22/2021 1:07 PM CDT Anny Serna MD LAB - CHEMISTRY ORDERABLES Performing Organization Address [facility] de Phone Number [address] [address], [facility] [phone] * (ABNORMAL) CYCLIC CITRUL PEPTIDE ANTIBODY IGG/IGA ([facility]P) (07/22/2021 12:53 PM CDT) [facility] Antibodies IgG/IgA >250(H) 0 - 19 units 07/24/2021 12:06 AM CDT [facility] ([facility]) Comment: ?Negative ? <20 ?Weak positive ?20 - 39 ?Moderate positive ??40 - 59 ?Strong positive ?>59 Blood BLOOD SPECIMEN / Unknown Lab Venipuncture / Unknown 07/22/2021 12:53 PM CDT 07/22/2021 1:07 PM CDT Narrative [facility] ([facility]) - 07/24/2021 12:06 AM CDT Performed at: ??01 - [facility] [address] ??[id number] Food Production Manager: Daquan Lovell MD, Phone: ??[phone] Anny Serna MD LAB - SEROLOGY ORDERABLES [facility] [facility] ([facility]) [address] [place] [address] * XR ELBOW LEFT 3VW OR MORE (07/22/2021 12:19 PM CDT) Anatomical [...] MD DIAGNOSTIC IMAG ING ORDERABLES * XR ELBOW RIGHT 3VW OR MORE (07/22/2021 12:19 PM CDT) Anatomical [...] MD DIAGNOSTIC IMAG ING ORDERABLES * XR KNEE RIGHT 3VW (07/22/2021 12:19 PM CDT) Anatomical Region [...] MD DIAGNOSTIC IMAG ING ORDERABLES * XR KNEE LEFT 3VW (07/22/2021 12:19 [...] MD DIAGNOSTIC IMAG ING ORDERABLES * XR CERVICAL SPINE 4 OR 5VW (07/22/2021 12:19 PM CDT) Anatomical Region Laterality Modality Spine Radiographic Ivana ging 07/22/2021 2:42 PM CDT Impressions 07/24/2021 3:41 PM CDT IMPRESSION: Multilevel degenerative disc and joint disease. No instability with flexion or extension. Report dictated by Antonio Arreaga MD, PhD (resident care associate). I, Dr. ALEISHA PARR M.D. have personally reviewed and interpreted this examination/study. This report was electronically signed by ALEISHA PARR M.D. ??on 07/24/2021 3:41 PM . Narrative 07/24/2021 3:41 PM CDT EXAMINATION: XR CERVICAL SPINE 4 OR 5VW HISTORY: M06.9: Rheumatoid arthritis, involving unspecified site, unspecified whether rheumatoid factor present Z51.81: Therapeutic drug monitoring COMPARISON: None available. FINDINGS: Alignment is normal. Normal alignment is maintained with flexion and extension. There is no fracture or compression deformity. There is narrowing of disc spaces in the lower cervical spine. The dens is normal in lateral projection. The dens is not visible on AP projection. There is no odontoid view. The predental interval is normal. There is no prevertebral soft tissue swelling. Procedure Note Aleisha Parr MD - 07/24/2021 EXAMINATION: XR CERVICAL SPINE 4 OR 5VW HISTORY: M06.9: Rheumatoid arthritis, involving unspecified site, unspecified whether rheumatoid factor present Z51.81: Therapeutic drug monitoring COMPARISON: None available. FINDINGS: Alignment is normal. Normal alignment is maintained with flexion and extension. There is no fracture or compression deformity. There is narrowing of disc spaces in the lower cervical spine. The dens is normal in lateral projection. The dens is not visible on AP projection. Thereis no odontoid view. The predental interval is normal. There is no prevertebral soft tissue swelling. IMPRESSION: Multilevel degenerative disc and joint disease. No instability with flexion or extension. Report dictated by Antonio Arreaga MD, PhD (resident care associate). I, Dr. ALEISHA PARR M.D. have personally reviewed and interpreted this examination/study. This report was electronically signed by ALEISHA PARR M.D. on07/24/2021 3:41 PM . Anny Serna MD DIAGNOSTIC IMAG ING ORDERABLES * XR HAND RIGHT 3VW OR MORE (07/22/2021 12:19 PM CDT) Anatomical Region Laterality Modality Wrist / Hand Radiographic Ivana ging 07/22/2021 12:3 0 PM [...] MD DIAGNOSTIC IMAG ING ORDERABLES * XR HAND LEFT 3VW OR MORE (07/22/2021 12:19 PM CDT) Anatomical Region Laterality Modality Wrist / Hand Radiographic Ivana ging 07/22/2021 12:3 0 PM [...] MD DIAGNOSTIC IMAG ING ORDERABLES * XR FOOT LEFT 3VW OR MORE (07/22/2021 12:19 PM CDT) Anatomical Region Laterality Modality Ankle / Foot Radiographic Ivana ging 07/22/2021 12:3 0 PM [...] MD DIAGNOSTIC IMAG ING ORDERABLES * XR FOOT RIGHT 3VW OR MORE (07/22/2021 12:19 PM CDT) Anatomical Region Laterality Modality Ankle / Foot Radiographic Ivana ging 07/22/2021 12:3 0 PM [...] is intact. Dictated by Vladimir Washburn DO (resident care associate). Dr. KINDRA Anguiano have personally reviewed and [...] thorax isintact. Dictated by Vladimir Washburn DO (resident care associate). Dr. KINDRA Anguiano have personally reviewed and [...]
--- OUTSIDE RECORDS SUMMARY | 2024-10-16 22:31 | XMS_ITS | Encounter Summary ---
Author Organization [facility] Address [address] [facility] [place] [address] Care Team Providers Care Thermite Welder Name Role Phone Unavailable Primary Care Provider Unavailabl e Reason for Visit * Reason Onset Date Comments Results 12/28/2021 Encounter Details Date Type Department Care Team ([facility] st Contact Info) Description 12/28/2021 Telephone [facility] [address] [facility], [facility] [place] [phone] Alma Hurtado MD [address] [place] [phone] Results Social History Tobacco Use Types Packs/Day [...] Telephone Encounter - Alma Hurtado MD - 12/28/2021 1:06 PM CDT transaminitis worse on 10 mg mtx. called patient, asked her to discontinue mtx. hcq would not be optimal therapy alone. recommended again biologics, which she remains fairly opposed to. Asked her to research remicade, simponi, and enbrel. She will call me in a week to discuss further. discussed with dr arndt attending documented in this encounter Plan of Treatment Upcoming Encounters Date Type Department Care Team (Late st Contact Info) Description 10/31/2024 10:00 AM MOLD CAPPER HELPER Office Visit [facility] - Rheumatology [address] [facility], [place] [address] Antonio Bowles MD [address] [place] [address] [place] [phone] 02/01/2025 9:00 AM CDT Appointment [facility] [address] [place] [address] Sultana Sullivan MD [address] [place] [phone] documented as of this encounter Visit Diagnoses Not on filedocumented in this encounter
--- OUTSIDE RECORDS SUMMARY | 2024-10-16 22:31 | XMS_ITS | Encounter Summary ---
Author Organization [facility] Address [address] [facility] [place] [address] Care Team Providers Care Supervisor Hand Workers Name Role Phone Unavailable Primary Care Provider Unavailabl e Encounter Details Date Type Department Care Team (Latest Contact Info) Description 11/04/2021 9:55 AM MERCHANDISING PROFESSOR Hospital Encounter [facility] OP [address] [place] [phone] Anny Serna MD [address] [place] [address] Discharge Disposition: Home or Self Care Social [...] COVID-19? No / Unsure 11/04/2021 9:53 AM MERCHANDISING PROFESSOR documented as of this encounter Medications at [...] st Contact Info) Description 10/31/2024 10:00 AM MERCHANDISING PROFESSOR Office Visit [facility] - Rheumatology [address] [place] [address], [facility] [place] [phone] Antonio Bowles MD [address] [place] [address] [place] [phone] 02/01/2025 9:00 AM CDT Appointment [facility] [address] [place] [phone] Sultana Sullivan MD [address] [place] [phone] documented as of this encounter Procedures Procedure Name Priority Date/Time Associated Diagnosis Comments XR KNEE RIGHT 3VW Routine 11/04/2021 10: 16 AM MERCHANDISING PROFESSOR Rheumatoid arthritis, involving unspecified site, unspecified whether rheumatoid factor present (HCC) 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 Dictated by Nesha Huggins MD (certified prosthetist vice president). Dr. BOOGIE Anguiano MD have personally reviewed and interpreted this examination/study. This report was electronically signed by BOOGIE SEARS MD ??on 11/04/2021 10:49 AM . 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 The knee joint space is preserved. There is no effusion. No soft tissue swelling is present. IMPRESSION: No significant degenerative or erosive changes. Dictated by Nesha Huggins MD (certified prosthetist vice president). Dr. BOOGIE Anguiano MD have personally reviewed and interpreted this examination/study. This report was electronically signed by BOOGIE SEARS MD on11/04/2021 10:49 AM . Anny Serna MD DIAGNOSTIC IMAG ING ORDERABLES documented in this encounter Visit Diagnoses Diagnosis Rheumatoid arthritis, involving unspecified site, unspecified whether rheumatoid factor present (HCC) Therapeutic drug monitoring Encounter for therapeutic drug monitoring group home 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 documented in this encounter
--- OUTSIDE RECORDS SUMMARY | 2024-10-16 22:31 | XMS_ITS | Encounter Summary ---
Author Organization [facility] Address [address] [place] [address] Care Team Providers Care Can Striper Name Role Phone Unavailable Primary Care Provider Unavailabl e Reason for Visit * Reason Comments Follow-up RA Encounter Details Date Type Department Care Team (Late st Contact Info) Description 07/07/2022 10:00 AM CDT Office Visit [facility] [address] [place] [phone] Saleem Weber MD [address] [facility] [address] Rheumatoid arthritis, involving unspecified site, unspecified whether rheumatoid factor present (HCC) (Primary Dx); Arthralgia, unspecified joint Social History Tobacco Use Types Packs/Day Years [...] Sign Reading Time Taken Comments Blood Pressure 108/56 07/07/2022 10:32 AM CDT Pulse - - Temperature 36.7 ??C (98.1 ??F) 07/07/2022 1 0:32 AM CDT Respiratory Rate - - Oxygen Saturation - - Inhaled Oxygen Concentration - - Weight 54.3 kg (119 lb 12.8 oz) 022 10:32 AM CDT Height 152.4 cm (5') 07/07/2022 10:32 AM CDT Body Mass Index 23.4 07/07/2022 10:32 AM CDT documented in this encounter Patient Instructions * Patient Instructions* Saleem Weber MD - 07/07/2022 11:22 AM CDT - As we discussed please try the Rinvoq samples and let us know if it works for you. - Other options to consider are the injections and infusions - Repeat labs in 2-3 weeks after starting Rinvoq. - Follow up in 4 months. If you need to schedule,change or cancel your Rheumatology appointment -at the [facility] ([facility]) at [address] [place] [address], call [phone] or [phone] (option 1) If you choose to get labs or imaging at an outside facility, it is your (as the patient) responsibility to have these results faxed to us at [phone] If you need a refill, please call your Pharmacy first and have them send us a refill request via Fax at [phone]. If you have been given a referral to a new specialist at [facility] and have not received a call to schedule within 1 week, please call [phone] to schedule your visit. If you have been referred to Physical Therapy, but do not receive a call from them to schedule an appointment within 1 week, please call [phone] to schedule your Physical Therapy appointment. You can also utilize the Physical Therapy website at [email or web address] to make an appointment. If you need to leave a message for Dr. Weber you can send her an electronic message via Attendify.Her office FAX number is [phone]. If you have an emergency after hours, you can reach the dice table person Fellow by calling the Route Supervisor at [phone], but please seek appropriate care at Urgent Care or Emergency Room. documented in this encounter Progress Notes * Catherine Hoffman MD - 07/07/2022 11:04 AM CDT Patient seen and examined with fellow Dr. Weber. Please see note for further details. I confirm history, exam, assessment and plan. In addition I note: Interval history: patient is 62 year old female with Rheumatoid arthritis, previously Dr. Serna's, new to me. She reports never started Rinvoq. She is c/o pain and swelling in her hands, and fingers. She also has pain in her shoulders and neck. Exam: Vitals: 07/07/22 1032 BP: 108/56 Temp: 98.1 ??F (36.7 ??C) Weight: 119 lb 12.8 oz (54.3 kg) Height: 5' (1.524 m) Right 2nd [id number] Left 4th PIP T1 S1 Mild neck tenderness Heart: RRR Lungs: clear Last labs: 05/05/22 Assessment/Plan: Dr. Serna pt, new to me Patient is 62 year old female with seropositive Rheumatoid arthritis, she tried different medicinesin the past. Had LFT elevation with Methotrexate Had head ache with Tofacitinib She is not interested in starting injections She agreed to try Upadacitinib, begin 15 mg daily Continue Naproxen 500mg twice daily Check labs to monitor potential toxicity of medicine and disease process F/u in 4 months 07/07/2022 11:04 AM See fellow's note for further details Catherine Hoffman MD * Saleem Weber MD - 07/07/2022 10:40 AM CDT Rheumatology Clinic Consultation Note Patient: Sultana Vincent ( , 1960, 62 year old female) Encounter Date: 07/07/2022 Chief Concern: seropositive RA (+Rf, +CCP, no erosions in 2020) LCV: 05/05/22 Subjective History of Present Illness: Sultana Vincent??is a 62 year old??female??presenting for follow up of seropositive RA (+Rf, +CCP, no erosions in 2020) Last clinic visit: 02/03/2022. ?? Interval history: Today: She states she couldn't try Rinvoq due to sinus infection and was busy with parties and family. States to have on and off joint swelling of hands > knees. Hurting on all the joints including hands, neck, shoulders, swelling, fingers, ankles and states pretty much everything hurts . Stiffness all the time, goes away with walking in few mins. On her last visit various options were discussed including injectables/ infusions/ TNF agents like Enbrel, Humira, Cimzia which was re-visited today, risks and benefits discussed with the patient butmendy continues to deny them. Explained that Rinvoq also belongs to same class of RAKEL inhibitors like Xeljanz. She denies to try steroids for flares. She does have dry eyes. Denies rashes, vision issues, raynaud's, ulcers, sores. ?? History: During last few visits, there was an extensive conversation between Dr. Serna, Dr. Hurtado about medications. She was deeply anxious and fearful of injections and infusions. She was adamant to utilize pills only. She understood risks of RAKEL inhibitors but preferred this over??any injectable or infusion TNF inhibitor.??They discussed hcq which is helpful as adjunctive but not monotherapy.??She remained steadfastly opposed to any needles of any kind. Discussed the increased risk of malignancy andclots with RAKEL inhibitors. She understood, and would rather accept these risks than utilize needleswhich give her extreme anxiety.? -Cancer screening: mammogram 2-3 years ago , cologard last year, lung ct long time ago (>30 yearsmoker who quit 2020) -Patient doesn't want COVID vaccine. ?? Current meds takes naproxen 500 mg??bid/ OD Vitamin D 50,000 IU once a week ?? Prior medications: Xeljanz 11 mg daily: dizziness, [...] benefit, but stopped due to persistent transaminitis.??Medication averse. ?? Family and social history: Was working in a [employer], [place] Has 3 sons, no miscarriages Doesn't [...] (one) tablet by mouth once daily, Disp: 15 tablet, Rfl: 0 ??? VITAMIN D, CHOLECALCIFEROL, PO, Take 50,000 Units by mouth every 7 days, Disp: , Rfl: ??? vitamin D, ergocalciferol, (Drisdol) 1.25 MG (77606 UT) capsule, Take 50,000 Units by mouth every 7 [...] primary care provider on file. No care customer care team coach to display Objective Physical Exam BP 108/56 (BP SITE: RIGHT ARM, BP POSITION: SITTING, BP CUFF SIZE: 11L) Temp 98.1 ??F (36.7 ??C) (Oral) Ht 5' (1.524 m) Wt 119 lb 12.8 oz (54.3 kg) No BMI 23.40 kg/m?? GENERAL: NAD HEENT/NECK: White sclerae. Ext ears wnl. No oropharyngeal lesions. No palpable masses. CHEST/LUNGS: Normal work of breathing, CTAB. CARDIOVASCULAR: Regular rhythm, crisp S1/S2, no M/R/G. Ext WWP. No BRENDAN. ABDOMEN: S/ND/NT. SKIN/NAILS: No rashes on exposed skin. PSYCH: Alert, appropriately interactive. NEURO: Sensation intact to soft touch. Normal muscle bulk and strength in trunk and limbs. MSK: Bilateral elbow tenderness, Lt elbow nodules + B/t PIPs swelling with MCP fullness Left 4th PIP and Rt 2nd PIP tenderness+ Ulnar deviation -> Lt > Rt Decreased airplane coverer strength bilaterally Rt foot 1st and 2nd toes amputation (due to lawn mowing incident). Labs: Reviewed, including those as noted below Recent Results (from the past 2352 hour(s)) LDH BLOOD Collection Time: 05/05/22 12:10 PM Result Value Ref Range LDH Total 264 (H) 125 - 243 Units/L CBC WITH DIFFERENTIAL Collection Time: 05/05/22 12:10 PM Result Value Ref Range WBC 6.9 3.5 - 10.5 10??3/uL RBC 4.80 3.80 - 5.20 10??6/uL Hemoglobin 13.5 12.0 - 15.6 g/dL Hematocrit 43.3 35.0 - 45.0 % MCV 90.2 80.7 - 98.3 fL MCH 28.1 26.7 - 34.0 pg MCHC 31.2 30.8 - 35.9 g/dL Platelet Count 512 (H) 150 - 400 10??3/uL RDW-SD 45.8 36.0 - 50.0 fL RDW-CV 13.8 11.2 - 14.8 % MPV 9.5 9.4 - 12.9 fL nRBC Absolute 0.00 0 10??3/uL nRBC Auto 0.0 0 /100 WBC Neutrophils % 64.0 35.0 - 70.0 % Lymphocytes % 23.1 20.0 - 43.0 % Monocytes % 7.1 5.0 - 13.0 % Eosinophils % 5.4 0.0 - 6.0 % Basophil % 0.1 0.0 - 2.0 % Neutrophils Absolute 4.41 1.60 - 7.00 10??3/uL Lymphocyte Absolute 1.59 1.10 - 3.90 10??3/uL Monocytes Absolute 0.49 0.26 - 1.07 10??3/uL Eosinophils Absolute 0.37 0.00 - 0.47 10??3/uL Basophils Absolute 0.01 0.00 - 0.08 10??3/uL Immature Granulocytes % 0.3 0.0 - 1.0 % Immature Granulocytes Absolute 0.02 C-REACTIVE PROTEIN Collection Time: 05/05/22 12:10 PM Result Value Ref Range C-Reactive Protein 3.4 (H) <=0.5 mg/dL COMPREHENSIVE METABOLIC PANEL Collection Time: 05/05/22 12:10 PM Result Value Ref Range BUN 12 7 - 26 mg/dL Creatinine 0.76 0.56 - 0.96 mg/dL Sodium 139 136 - 145 mmol/L Potassium 4.3 3.5 - 4.5 mmol/L Chloride 102 98 - 107 mmol/L CO2 26 22 - 29 mmol/L Glucose 92 70 - 115 mg/dL Calcium 9.9 8.4 - 10.2 mg/dL Protein Total 8.1 6.0 - 8.3 g/dL Albumin 3.6 3.4 - 5.0 g/dL Bilirubin Total 0.5 0.2 - 1.2 mg/dL Alkaline Phosphatase 87 40 - 150 U/L ALT 15 5 - 55 U/L AST 20 5 - 34 U/L Anion Gap 15 8 - 18 BUN/Creatinine Ratio 16 7 - 23 Osmolality Calculated 287 270 - 300 mOsm/kg Albumin/Globulin Ratio 0.8 (L) 1.1 - 2.3 eGFR by CKD-EPI 88 (L) >=90 mL/min/1.73 m2 ERYTHROCYTE SEDIMENTATION RATE Collection Time: 05/05/22 12:10 PM Result Value Ref Range Erythrocyte Sedimentation Rate Westergren 44 (H) 0 - 30 MM/HR URINALYSIS REFLEX TO MICROSCOPIC NO CULTURE Collection Time: 05/05/22 12:10 PM Specimen: Urine Clean Catch Result Value Ref Range Color UA Yellow Straw, Yellow Clarity UA Slt Cloudy (Abnormal) Clear Specific [place] UA 1.010 1.005 - 1.030 pH UA 5.0 5.0 - 8.0 pH Protein UA Negative Negative Glucose UA Negative Negative Ketone UA Negative Negative Bilirubin UA Negative Negative Blood UA Negative Negative Nitrite UA Negative Negative Leukocyte Esterase 2+ (Abnormal) Negative Urobilinogen UA Negative Negative mg/dL RBC UA 3-5 None Seen, 0-2, 3-5 /HPF WBC UA 0-5 None Seen, 0-5 /HPF Squamous Epithelial Cells UA 3-5 None Seen, 0-2, 3-5 /HPF Mucus UA 1+ /LPF Other Studies: Labs: 05/05/22: CRP 3.4 ESR 44 from 67 LDH 267 from 273. Xrays 05/05/22 hands, elbows, cervical spine, foot, knee: - Diffuse osteopenia is identified. Narrowing of the central joint space of the interphalangeal joints. Joint spaces at the carpal bones and carpometacarpal bones are grossly preserved. No bony erosions or destructions are seen. No acute fractures or dislocations. No significant soft tissue swelling. - No acute fractures or dislocations is seen. No bony erosions or destructions. Joint space grossly preserved. No significant joint effusion or soft tissue swelling is seen. - Mild degenerative changes are seen throughout cervical spine, similar to prior study. Mild anterolisthesis of C2 over C3 on the flexion view, unchanged compared to 07/22/2021. - No bony erosions or destructions are seen. Osteopenia is noted. No acute fractures or dislocations. No significant soft tissue swelling. - The joint space grossly preserved. No significant osteophytes seen. Patella and patellofemoral joints are unremarkable. No acute fractures or Dislocations. 02/03/22: Aldolase 0.4, CRP 2.9, ESR 67, LDH 273 WBC 8.5, Hb 13.3, Platelet: 470 ?? 07/22/2021: CCP >250, RF positive 59 ?? Xrays 07/2021: Cervical spine: IMPRESSION: Multilevel degenerative disc and joint disease. No instability with flexion or extension. ?? Chest XR: There is no focal consolidation, pleural effusion, or pneumothorax. The cardiomediastinal silhouette is normal. The visible bony thorax is intact. ?? XR of Extremity joints: 1. Right hand: [...] 11. Diffuse osteopenia. Assessment & Recommendations Sultana Vincent??is a 62 year old??female??with longstanding Seropositive RA (+CCP, +RF nonerosive)for follow up ?? #. Seropositive RA Onset : 07/2021. Diagnosis supported by clinical and serological phenotype:CCP>250 in 03/2021. +CCP and +RF 59 07/2021 Prior therapy: Xeljanz 11 mg daily: dizziness, headache, nausea after two times and took two days to feel better. Patient stopped it. Hydroxychloroquine 200 mg Methotrexate 15 mg in 2020: with some benefit, but stopped due to persistent transaminitis. Current therapy: naproxen 500 mg??bid. Samples of Rinvoq given on last visit, patient did not try yet. Authorization for Rinvoq denied. #. Osteopenia: Following with PCP ?? #. Drug Toxicity Monitoring - CBC/diff and CMP - She will need standing labs once she is on RA therapy consistently. - Cancer screenings??Up to date on breast and colonl cancer screening, but needs lung cancer screening given history of tobacco abuse and was asked to follow up with her PCP. ?? #. Immunosuppression due to drug therapy - Latent infection screen: HBsAb, HBsAg, HBcAb,HCV Ab negative in 07/2021 - TB quant negative in 07/2021 - Immunizations per PCP: for all patients on immunosuppressive therapy we recommend annual influenza vaccine, COVID19 vaccine, Prevnar, Pneumovax, Shingrix. Patient denies COVID vaccine. - Patient advised to contact clinic in case of any infections or antibiotic use. RECOMMENDATIONS: [] As detailed above, had a long conversation regarding other medications including infusions, injections. Risks and benefits discussed. Patient continues to refused. Recommended to try the Rinvoq samples and call us in a week to let us know how she is doing. If feels better, will appeal for Rinvoq. If no improvement on Rinvoq, will need to re-discuss above options. [] Continue taking vitamin D 50,000 IU weekly as advised by PCP [] Labs 2-3 weeks after starting Rinvoq ?? #. Follow-up: In 4 months or sooner if needed. This patient was seen and staffed with attending Dr. Hoffman. Saleem Weber MD Rheumatology Fellow [facility] Encounter orders: Orders Placed This Encounter ??? CBC WITH DIFFERENTIAL Standing Status: Future Standing Expiration Date: 07/07/2023 Order Specific Question: Release to patient Answer: Immediate ??? COMPREHENSIVE METABOLIC PANEL Standing Status: Future Standing Expiration Date: 07/07/2023 Order Specific Question: Release to patient Answer: Immediate ??? C-REACTIVE PROTEIN Standing Status: Future Standing Expiration Date: 07/07/2023 Order Specific Question: Release to patient Answer: Immediate ??? ERYTHROCYTE SEDIMENTATION RATE Standing Status: Future Standing Expiration Date: 07/07/2023 Order Specific Question: Release to patient Answer: Immediate ??? URINALYSIS W/MICROSCOPIC REFLEX TO CULTURE Standing Status: Future Standing Expiration Date: 07/07/2023 Order Specific Question: Release to patient Answer: Immediate ??? QUANTIFERON-TB GOLD PLUS 4-TUBE Standing Status: Future Standing Expiration Date: 07/07/2023 Order Specific Question: Release to patient Answer: Immediate documented in this encounter Plan of Treatment Upcoming Encounters Date Type Department Care Team (Late st Contact Info) Description 10/31/2024 10:00 AM VP PACKAGING Office Visit [facility] - Rheumatology [address] [place] [address], [place] [address] Antonio Bowles MD [address] [facility] [place] [phone] 02/01/2025 9:00 AM CDT Appointment [facility] [address] [place] [address] Sultana Sullivan MD [facility] [place] [address] documented as of this encounter Visit Diagnoses Diagnosis Rheumatoid arthritis, involving unspecified site, unspecified whether rheumatoid factor present ([facility])- Primary Arthralgia, unspecified joint documented in this encounter
--- OUTSIDE RECORDS SUMMARY | 2024-10-16 22:31 | XMS_ITS | Encounter Summary ---
Author Organization [facility] Address [address] [place] [address] Care Team Providers Care Plate Molder Name Role Phone Provider, Abstract Primary Care Provider Unavail able Reason for Visit * Reason Comments Follow Up Encounter Details Date Type Department Care Team (Late st Contact Info) Description 03/30/2019 10:00 AM CDT Office Visit [facility] Oncology and Hematology - Pedro Luis [address] [facility] [address] [place] [address] Ifeanyi Marquez MD [address] [facility] [address] [place] [address] Secondary thrombocytosis (Primary Dx) Social History Tobacco Use Types [...] Reading Time Taken Comments Blood Pressure 116/82 03/30/2019 10:18 AM CDT Pulse 80 03/30/2019 10:18 AM CDT Temperature 36.7 ??C (98.1 ??F) 03/30/2019 10:18 AM C DT Respiratory Rate 18 03/30/2019 10:18 AM CDT Oxygen Saturation 99% 03/30/2019 10:18 AM CDT Inhaled Oxygen Concentration - - Weight 47 kg (103 lb 9.6 oz) 03/30/2019 10:18 AM CDT Height 152.4 cm (5') 03/30/2019 10:18 AM CDT Body Mass Index 20.23 03/30/2019 10:18 AM CDT documented in this encounter Progress Notes * Ifeanyi Marquez MD - 03/30/2019 2:55 PM CDT HEMATOLOGY / ONCOLOGY PROGRESS NOTE Patient [...] of 428,000. Patient came into the office to discuss the labs. She continues to smoke. Denies any other new complaints. Interval History: No change in interval history. [...] to display for this patient. Mild thrombocytosis. Panchito 2 mutation came back negative. Reactive markers are also normal. Repeat labs showed normal platelet count and normal WBC count. At this time I will see her back in 6 months with repeat labs. No further work-up is needed. She will continue to take baby aspirin. ? TOBACCO COUNSELING She was counseled to discontinue tobacco use. 03/30/2019 Ifeanyi Marquez MD documented in this encounter Plan of Treatment Not on file documented as of this encounter Visit Diagnoses Diagnosis Secondary thrombocytosis- Primary Essential thrombocythemia documented in this encounter Care Teams Plate Molder Relationship Specialty Start Date End Date Provider, Abstract NO ADDRESS ON FILE PCP - General 02/27/19 documented as of this encounter
--- OUTSIDE RECORDS SUMMARY | 2024-10-16 22:31 | XMS_ITS | Encounter Summary ---
Author Organization [facility] Address [address] [facility] [place] [address] Care Team Providers Care Petroleum Supply Specialist Name Role Phone Unavailable Primary Care Provider Unavailabl e Reason for Visit * Reason Onset Date Comments LABS ONLY 11/02/2022 Encounter Details Date Type Department Care Team (Late Contact Info) Description 11/02/2022 Telephone [facility] [address] [place] [phone] Saleem Weber MD [address] [place], [place] [phone] LABS ONLY Social History Tobacco Use Types Packs/Day Years [...] Telephone Encounter - Saleem Weber MD - 11/02/2022 1:23 PM CST ERROR encounter RENCE TEST CLERK documented in this encounter Plan of Treatment Upcoming Encounters Date Type Department Care Team (Late Contact Info) Description 10/31/2024 10:00 AM REFERENCE TEST CLERK Office Visit [facility] - Rheumatology [address] [place] [address] [place] [address] Antonio Bowles MD [address] [facility] [place] [phone] 02/01/2025 9:00 AM CDT Appointment [facility] [address] [place] [address] Sultana Sullivan MD [facility] [place] [address] documented as of this encounter Visit Diagnoses Not on filedocumented in this encounter
--- OUTSIDE RECORDS SUMMARY | 2024-10-16 22:31 | XMS_ITS | Encounter Summary ---
Author Organization [facility] Address [address] [facility] [place] [address] Care Team Providers Care Warp Hanger Name Role Phone Unavailable Primary Care Provider Unavailabl e Reason for Visit * Reason Onset Date Comments Returned Call 01/15/2022 Encounter Details Date Type Department Care Team (Late st Contact Info) Description 01/15/2022 Telephone [facility] [address] [facility] [place] [phone] Alma Hurtado MD [address] [place] [phone] Returned Call Social History Tobacco Use Types Packs/Day Years [...] Telephone Encounter - Alma Hurtado MD - 01/15/2022 1:29 PM CDT left Vm for patient requesting callback. Reminded her that we are hoping to start a biologic for her RA: remicade, simponi, or enbrel. Do have a followup with her on 02/03 documented in this encounter Plan of Treatment Upcoming Encounters Date Type Department Care Team (Late st Contact Info) Description 10/31/2024 10:00 AM MISSING PERSONS INVESTIGATOR Office Visit [facility] - Rheumatology [address] [facility] [place] [phone] Antonio Bowles MD [facility] [facility] [place] [phone] 02/01/2025 9:00 AM CDT Appointment [facility] [address] [place] [address] Sultana Sullivan MD [address] [place] [phone] documented as of this encounter Visit Diagnoses Not on filedocumented in this encounter
--- OUTSIDE RECORDS SUMMARY | 2024-10-16 22:31 | XMS_ITS | Encounter Summary ---
Author Organization [facility] Address [address] [place] [address] Care Team Providers Care Counter Attendant Name Role Phone Provider, Abstract Primary Care Provider Unavail able Reason for Visit * Reason Comments Nicotine Dependence lung cancer screenin g Encounter Details Date Type Department Care Team (Late st Contact Info) Description 05/10/2019 Chart Note [facility] [place] [facility] [address] [place] [address] Viridiana Figueroa, RN Nicotine Dependence (lung cancer screening) Social History Tobacco Use Types Packs/Day Years [...] as of this encounter Progress Notes * Viridiana Figueroa, RN - 05/10/2019 10:56 AM CDT Lung Cancer Screening: Patient referred for low dose CT scan for lung cancer screening. Patient meets screening criteria per physician EPIC note. Referred to Interventional Radiology for scheduling. documented in this encounter Plan of Treatment Not on file documented as of this encounter Visit Diagnoses Not on filedocumented in this encounter Care Teams Counter Attendant Relationship Specialty Start Date End Date Provider, Abstract NO ADDRESS ON FILE PCP - General 02/27/19 documented as of this encounter
--- OUTSIDE RECORDS SUMMARY | 2024-10-16 22:31 | XMS_ITS | Encounter Summary ---
Author Organization [facility] Address [address] [place] [address] Care Team Providers Care Corporate Counselor Name Role Phone Unavailable Primary Care Provider Unavailabl e Reason for Visit * Reason Onset Date Comments Follow-up 12/18/2021 Encounter Details Date Type Department Care Team ([facility] st Contact Info) Description 12/18/2021 Telephone [facility] [address] [facility] [place] [phone] Alma Hurtado MD [address] [place] [phone] Follow-up Social History Tobacco Use Types Packs/Day Years [...] Telephone Encounter - Alma Hurtado MD - 12/18/2021 1:44 PM CST Called patient, she is back from [place], she has taken her second dose of mtx, so reminded her to get labs drawn at [facility], she will get them on Tuesday and we can make a decision about biologic vs hcq. LE CORNER CUTTER documented in this encounter Plan of Treatment Upcoming Encounters Date Type Department Care Team (Late st Contact Info) Description 10/31/2024 10:00 AM DOUBLE CORNER CUTTER Office Visit [facility] - Rheumatology [address] [facility], [facility] [place] [phone] Antonio Bowles MD [address] [place] [address] [place] [phone] 02/01/2025 9:00 AM CDT Appointment [facility] [address] [place] [address] Sultana Sullivan MD [address] [place] [phone] documented as of this encounter Visit Diagnoses Not on filedocumented in this encounter
--- OUTSIDE RECORDS SUMMARY | 2024-10-16 22:31 | XMS_ITS | Encounter Summary ---
Author Organization [facility] Address [address] [place] [address] Care Team Providers Care Precision Lens Grinder Name Role Phone Unavailable Primary Care Provider Unavailabl e Reason for Visit * Reason Onset Date Comments LABS ONLY 11/20/2021 Encounter Details Date Type Department Care Team ([facility] st Contact Info) Description 11/20/2021 Telephone [facility] [address] [facility], [facility] [place] [phone] Alma Hurtado MD [facility] [place] [address] LABS ONLY Social History Tobacco Use Types [...] COVID-19? No / Unsure 11/04/2021 9:53 AM GRANT COORDINATOR documented as of this encounter Miscellaneous Notes * Telephone Encounter - Alma Hurtado MD - 11/20/2021 2:57 PM CST Called sultana, she is in [place]. CMP wasn't checked. She is actually having a UTI and in on abx for one week and she held the methotrexate. Asked her to restart 10 mg MTX weekly after the abx are done. Then she will get labs at [facility] a few days after the second dose. Then we can use the liver enzymes to guide our next steps of therapy. her aldolase was elevated. She is still having bilateral arm soreness, but it is staying the same (not worsening or improving). would recheck at the next lab draw. standing orders re-placed at [facility] for one year, q6 weeks. T COORDINATOR documented in this encounter Plan of Treatment Upcoming Encounters Date Type Department Care Team (Late st Contact Info) Description 10/31/2024 10:00 AM GRANT COORDINATOR Office Visit [facility] - Rheumatology [address] [place] [address], [facility] [place] [phone] Antonio Bowles MD [address] [place] [address] [place] [phone] 02/01/2025 9:00 AM CDT Appointment [facility] [address] [place] [phone] Sultana Sullivan MD [address] [place] [phone] documented as of this encounter Procedures Procedure Name Priority Date/Time Associated Diagnosis Comments LDH BLOOD Routine 05/05/2022 12:10 PM CDT Rheumatoid arthritis, involving unspecified site, unspecified whether rheumatoid factor present (HCC) Therapeutic drug monitoring jail 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 URINALYSIS MICROSCOPIC ONLY REFLEXED Routine 12/21/2021 3:36 PM CDT Rheumatoid arthritis, involving unspecified site, unspecified whether rheumatoid factor present (HCC) Therapeutic drug monitoring resident doctor 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 URINALYSIS W/MICROSCOPIC NO CULTURE Routine 12/21/2021 3:36 PM CDT Rheumatoid arthritis, involving unspecified site, unspecified whether rheumatoid factor present (HCC) Therapeutic drug monitoring resident doctor 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 C-REACTIVE PROTEIN Routine 12/21/2021 3: 36 PM CDT Rheumatoid arthritis, involving unspecified site, unspecified whether rheumatoid factor present (HCC) Therapeutic drug monitoring jail 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 ERYTHROCYTE SEDIMENTATION RATE Routine 12/21/2021 3:36 PM CDT Rheumatoid arthritis, involving unspecified site, unspecified whether rheumatoid factor present (HCC) Therapeutic drug monitoring jail 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 CBC W AUTO DIFFERENTIAL Routine 12/21/2021 3:36 PM CDT Rheumatoid arthritis, involving unspecified site, unspecified whether rheumatoid factor present (HCC) Therapeutic drug monitoring resident doctor 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 COMPREHENSIVE METABOLIC PANEL Routine 12/21/2021 3:36 PM CDT Rheumatoid arthritis, involving unspecified site, unspecified whether rheumatoid factor present (HCC) Therapeutic drug monitoring jail 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 documented in this encounter Results * (ABNORMAL) LDH BLOOD (05/05/2022 12:10 PM CDT) LDH Total 264(H) 125 - 243 Units/L 05/05/2022 1:24 PM CDT [facility] Blood BLOOD SPECIMEN / Unknown Lab Venipuncture / Unknown 05/05/2022 12:10 PM CDT 05/05/2022 12:47 PM CDT Anny Serna MD LAB - CHEMISTRY ORDERABLES [facility] [address] [address], [facility] [phone] * (ABNORMAL) URINALYSIS MICROSCOPIC ONLY REFLEXED (12/21/2021 3:36 PM CDT) WBC UA 6-10(A) 0 - 5 /hpf [facility] INSURANCE BILL [...] Urine NOT NEEDED [facility] INSURANCE BILL Comment: FASTING Ancillary determined the test is not needed. 12/21/2021 3:36 PM CDT 12/21/2021 Narrative Resulting Agency Comment Lab Testing performed at: [facility] [address] ??[facility] [phone] Anny Serna MD LAB - URINALYSI S ORDERABLES [facility] INSURANCE BILL [address] [place] [address] * (ABNORMAL) URINALYSIS W/MICROSCOPIC NO CULTURE (12/21/2021 3:36 PM CDT) Specific Huntley UA 1.010 1.005 - 1.030 [facility] INSURANCE BILL pH UA 5.5 5.0 - 7.5 [facility] INSURANCE BILL Color UA Yellow Yellow [facility] INSURANCE BILL Appearance Clear Clear [facility] INSURANCE BILL Leukocyte UA 2+(A) Negative [facility] INSURANCE BILL Protein UA Negative [...] Examination Urine See below: [facility] INSURANCE BILL Comment: Microscopic was indicated and was performed. FASTING Microscopic Examination Urine NOT NEEDED [facility] INSURANCE BILL Comment: FASTING Ancillary determined the test is not needed. Urine URINE SPECIMEN OBTAINED BY CLEAN CATCH PROCEDURE / Unknown 12/21/2021 3:36 PM CDT 12/21/2021 Narrative Resulting Agency Comment [facility]: [facility] [address] ??[facility] [phone] Anny Serna MD LAB - URINALYSI S ORDERABLES Performing Organization Address [facility]/ZIP Co de Phone Number [facility] INSURANCE BILL [address] [place] [address] * ERYTHROCYTE SEDIMENTATION RATE (12/21/2021 3:36 PM CDT) Erythrocyte Sedimentation Rate Westergren 32 0 - 40 mm/hr [facility] INSURANCE BILL Comment:FASTING Blood BLOOD SPECIMEN / Unknown 12/21/2021 3:36 PM CDT 12/21/2021 Narrative Resulting Agency Comment Lab Testing performed at: [facility] [place] [address] ??[facility] [phone] Anny Serna MD LAB - HEMATOLOG Y ORDERABLES Performing Organization Address [facility] Co de Phone Number [facility] INSURANCE BILL [address] [place] [address] * (ABNORMAL) C-REACTIVE PROTEIN (12/21/2021 3:36 PM CDT) C-Reactive Protein 11(H) 0 - 10 mg/L [facility] INSURANCE BILL Comment:FASTING Blood BLOOD SPECIMEN / Unknown 12/21/2021 3:36 PM CDT 12/21/2021 Narrative Resulting Agency Comment Lab [facility] performed at: [facility] [place] [address] ??[facility] [phone] Anny Serna MD LAB - CHEMISTRY ORDERABLES Performing Organization Address [facility] Co de Phone Number [facility] INSURANCE BILL [address] [place] [address] * (ABNORMAL) CBC WITH DIFFERENTIAL (12/21/2021 3:36 PM CDT) [facility] Signature WBC 5.0 3.4 - 10.8 x10E3/uL [facility] INSURANCE BILL RBC 4.59 3.77 - 5.28 x10E6/uL [facility] INSURANCE BILL Hemoglobin 13.4 11.1 - 15.9 g/dL [facility] INSURANCE BILL Hematocrit 41.0 34.0 - 46.6 % [facility] INSURANCE BILL MCV 89 79 - 97 fL [facility] INSURANCE BILL MCH 29.2 26.6 - 33.0 pg [facility] INSURANCE BILL MCHC 32.7 31.5 - 35.7 g/dL [facility] INSURANCE BILL RDW 13.9 11.7 - 15.4 % [facility] INSURANCE BILL Platelet Count 481(H) 150 - 450 x10E3/uL [facility] INSURANCE BILL Granulocytes % 72 Not Estab. % [facility] INSURANCE BILL Lymphocytes % 21 Not Estab. % [facility] INSURANCE BILL Monocytes % 3 Not Estab. % [facility] INSURANCE BILL Eosinophils % 4 Not Estab. % [facility] INSURANCE BILL Basophils % 0 Not Estab. % [facility] INSURANCE BILL Immature Cells NOT NEEDED [facility] INSURANCE BILL Comment:Ancillary determined the test is not needed. Granulocytes Absolute 3.6 1.4 - 7.0 x10E3/uL [facility] INSURANCE BILL Lymphocytes Absolute 1.1 0.7 - 3.1 x10E3/uL [facility] INSURANCE BILL Monocytes Absolute 0.2 0.1 - 0.9 x10E3/uL [facility] INSURANCE BILL Eosinophils Absolute 0.2 0.0 - 0.4 x10E3/uL [facility] INSURANCE BILL Basophils Absolute 0.0 0.0 - 0.2 x10E3/uL [facility] INSURANCE BILL Immature Granulocytes 0 Not Estab. % [facility] INSURANCE BILL Immature Granulocytes Absolute 0.0 0.0 - 0.1 x10E3/uL [facility] INSURANCE BILL nRBC NOT NEEDED [facility] INSURANCE BILL Comment:Ancillary determined the test is not needed. Comment Hematology Note: [facility] INSURANCE BILL Comment: Verified by microscopic examination. FASTING Blood BLOOD SPECIMEN / Unknown 12/21/2021 3:36 PM CDT 12/21/2021 Narrative Resulting Agency Comment Lab Testing performed at: [facility] [place] [address] ??[facility] [phone] Anny Serna MD LAB - HEMATOLOG Y ORDERABLES [facility] INSURANCE BILL [address] [place] [address] * (ABNORMAL) COMPREHENSIVE METABOLIC PANEL (12/21/2021 3:36 PM CDT) Glucose 114(H) 65 - 99 mg/dL [facility] INSURANCE BILL BUN 16 8 - 27 mg/dL [facility] INSURANCE BILL Creatinine 0.77 0.57 - 1.00 mg/dL [facility] INSURANCE BILL eGFR by CKD-EPI 87 >59 mL/min/1.7 3 [facility] INSURANCE BILL BUN/Creatinine Ratio 21 12 - 28 [facility] INSURANCE BILL Sodium 137 134 - 144 mmol/L [facility] INSURANCE BILL Potassium 4.6 3.5 - 5.2 mmol/L [facility] INSURANCE BILL Chloride 100 96 - 106 mmol/L [facility] INSURANCE BILL CO2 22 20 - 29 mmol/L [facility] INSURANCE BILL Calcium 9.2 8.7 - 10.3 mg/dL [facility] INSURANCE BILL Protein Total 7.0 6.0 - 8.5 g/dL [facility] INSURANCE BILL Albumin 4.0 3.8 - 4.8 g/dL [facility] INSURANCE BILL Globulin Total 3.0 1.5 - 4.5 g/dL [facility] INSURANCE BILL Albumin/Globulin Ratio 1.3 1.2 - 2.2 [facility] INSURANCE BILL Bilirubin Total 0.3 0.0 - 1.2 mg/dL [facility] INSURANCE BILL Alkaline Phosphatase 88 44 - 121 IU/L [facility] INSURANCE BILL AST 76(H) 0 - 40 IU/L [facility] INSURANCE BILL ALT 81(H) 0 - 32 IU/L [facility] INSURANCE BILL Comment:FASTING Blood BLOOD SPECIMEN / Unknown 12/21/2021 3:36 PM CDT 12/21/2021 Narrative Resulting Agency Comment Lab Testing performed at: [facility] [place] [address] ??[facility] [phone] Anny Serna MD LAB - CHEMISTRY ORDERABLES [facility] INSURANCE BILL [address] [place] [address] documented in this encounter Visit Diagnoses Diagnosis Rheumatoid arthritis, involving unspecified site, unspecified whether rheumatoid factor present (HCC)- Primary Therapeutic drug monitoring Encounter for therapeutic drug monitoring jail 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 documented in this encounter
--- OUTSIDE RECORDS SUMMARY | 2024-10-16 22:31 | XMS_ITS | Encounter Summary ---
Author Organization [facility] Address [address] [facility] [address] Care Team Providers Care Urban Design Consultant Name Role Phone Unavailable Primary Care Provider Unavailabl e Encounter Details Date Type Department Care Team (Latest Contact Info) Description 07/22/2021 11:50 AM CDT - 07/22/2021 11:59 PM CDT Hospital Encounter [facility] OP [address] [place] [phone] Anny Serna MD [address] [facility] [address] [place] [address] Discharge Disposition: Home or Self Care Social [...] st Contact Info) Description 10/31/2024 10:00 AM UPHOLSTERER OUTSIDE Office Visit [facility] - Rheumatology [address] [facility] [place] [phone] Antonio Bowles MD [address] [facility] [place] [phone] 02/01/2025 9:00 AM CDT Appointment [facility] [address] [place] [address] Sultana Sullivan MD [address] [place] [phone] documented as of this encounter Procedures Procedure Name Priority Date/Time Associated Diagnosis Comments XR KNEE RIGHT 3VW Routine 07/22/2021 12: 19 PM CDT Rheumatoid arthritis, involving unspecified site, unspecified whether rheumatoid factor present (HCC) Therapeutic drug monitoring XR FOOT RIGHT 3VW OR MORE Routine 07/22/2021 12:19 PM CDT Rheumatoid arthritis, involving unspecified site, unspecified whether rheumatoid factor present (HCC) Therapeutic drug monitoring XR FOOT LEFT 3VW OR MORE Routine 07/22/2021 12:19 PM CDT Rheumatoid arthritis, involving unspecified site, unspecified whether rheumatoid factor present (HCC) Therapeutic drug monitoring XR KNEE LEFT 3VW Routine 07/22/2021 12:1 9 PM CDT Rheumatoid arthritis, involving unspecified site, unspecified whether rheumatoid factor present (HCC) Therapeutic drug monitoring XR HAND RIGHT 3VW OR MORE Routine 07/22/2021 12:19 PM CDT Rheumatoid arthritis, involving unspecified site, unspecified whether rheumatoid factor present (HCC) Therapeutic drug monitoring XR HAND LEFT 3VW OR MORE Routine 07/22/2021 12:19 PM CDT Rheumatoid arthritis, involving unspecified site, unspecified whether rheumatoid factor present (HCC) Therapeutic drug monitoring XR ELBOW RIGHT 3VW OR MORE Routine 07/22/2021 12:19 PM CDT Rheumatoid arthritis, involving unspecified site, unspecified whether rheumatoid factor present (HCC) Therapeutic drug monitoring XR ELBOW LEFT 3VW OR MORE Routine 07/22/2021 12:19 PM CDT Rheumatoid arthritis, involving unspecified site, unspecified whether rheumatoid factor present (HCC) Therapeutic drug monitoring XR SHOULDER RIGHT 2VW OR MORE Routine 07/22/2021 12:19 PM CDT Rheumatoid arthritis, involving unspecified site, unspecified whether rheumatoid factor present (HCC) Therapeutic drug monitoring XR SHOULDER LEFT 2VW OR MORE Routine 07/22/2021 12:19 PM CDT Rheumatoid arthritis, involving unspecified site, unspecified whether rheumatoid factor present (HCC) Therapeutic drug monitoring XR CERVICAL SPINE 4 OR 5VW Routine 07/22/2021 12:19 PM CDT Rheumatoid arthritis, involving unspecified site, unspecified whether rheumatoid factor present (HCC) Therapeutic drug monitoring XR CHEST 2VW Routine 07/22/2021 12:19 PM CDT Rheumatoid arthritis, involving unspecified site, unspecified whether rheumatoid factor present (HCC) Therapeutic drug monitoring documented in this encounter Results * XR ELBOW LEFT 3VW OR MORE [...] Report dictated by Antonio Arreaga MD, PhD (residential lawn specialist). I, Dr. ALEISHA PARR M.D. have personally [...] Report dictated by Antonio Arreaga MD, PhD (residential lawn specialist). I, Dr. ALEISHA PARR M.D. have personally [...] is intact. Dictated by Vladimir Washburn DO (residential lawn specialist). I, Dr. KINDRA GASPAR have personally reviewed and interpreted this examination/study. This report was electronically signed by KINDRA GASPAR ??on 07/23/2021 5:37 PM . Narrative 07/23/2021 5:37 PM CDT EXAMINATION: XR CHEST 2VW HISTORY: M06.9: Rheumatoid arthritis, involving unspecified site, unspecified whether rheumatoid factor present Z51.81: Therapeutic drug monitoring COMPARISON: None. Procedure Note Kindra Gaspar MD - 07/23/2021 EXAMINATION: XR CHEST 2VW HISTORY: M06.9: Rheumatoid arthritis, involving unspecified site, unspecified whether rheumatoid factor present Z51.81: Therapeutic drug monitoring COMPARISON: None. FINDINGS/IMPRESSION: There is no focal consolidation, pleural effusion, or pneumothorax. The cardiomediastinal silhouette is normal. The visible bony thorax isintact. Dictated by Vladimir Washburn DO (residential lawn specialist). I, Dr. KINDRA GASPAR have personally reviewed and interpreted this examination/study. This report was electronically signed by KINDRA GASPAR on 07/23/2021 5:37 PM . Anny Serna MD DIAGNOSTIC IMAG ING ORDERABLES documented in this encounter Visit Diagnoses Diagnosis Rheumatoid arthritis, involving unspecified site, unspecified whether rheumatoid factor present (HCC) Therapeutic drug monitoring Encounter for therapeutic drug monitoring documented in this encounter
--- OUTSIDE RECORDS SUMMARY | 2024-10-16 22:31 | XMS_ITS | Encounter Summary ---
Author Organization [facility] Address [address] [place] [address] Care Team Providers Care Director Product Development Name Role Phone Unavailable Primary Care Provider Unavailabl e Encounter Details Date Type Department Care Team (Latest Contact Info) Description 05/05/2022 11:29 AM CDT - 05/05/2022 11:59 PM CDT Hospital Encounter [facility] [address] [place] [id number] Unknown, Provider Discharge Disposition: Home or Self [...] unspecified whether rheumatoid factor present (HCC),Therapeutic drug monitoring,custodial 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,High risk medications [...] st Contact Info) Description 10/31/2024 10:00 AM COMPLIANCE ENGINEER PRODUCTS Office Visit [facility] - Rheumatology [address] [place] [address], [facility] [place] [address] Antonio Bowles MD [address] [place] [address] [place] [phone] 02/01/2025 9:00 AM CDT Appointment [facility] [address] [place] [address] Sultana Sullivan MD [address] [place] [phone] documented as of this encounter Procedures Procedure Name Priority Date/Time Associated Diagnosis Comments XR FOOT RIGHT 3VW OR MORE Routine 05/05/2022 11:57 AM CDT Rheumatoid arthritis, involving unspecified site, unspecified whether rheumatoid factor present (HCC) Arthralgia, unspecified joint Therapeutic drug monitoring XR FOOT LEFT 3VW OR MORE Routine 05/05/2022 11:57 AM CDT Rheumatoid arthritis, involving unspecified site, unspecified whether rheumatoid factor present (HCC) Arthralgia, unspecified joint Therapeutic drug monitoring XR KNEE RIGHT 4VW OR MORE Routine 05/05/2022 11:57 AM CDT Rheumatoid arthritis, involving unspecified site, unspecified whether rheumatoid factor present (HCC) Arthralgia, unspecified joint Therapeutic drug monitoring XR KNEE LEFT 4VW OR MORE Routine 05/05/2022 11:57 AM CDT Rheumatoid arthritis, involving unspecified site, unspecified whether rheumatoid factor present (HCC) Arthralgia, unspecified joint Therapeutic drug monitoring XR HAND RIGHT 3VW OR MORE Routine 05/05/2022 11:57 AM CDT Rheumatoid arthritis, involving unspecified site, unspecified whether rheumatoid factor present (HCC) Arthralgia, unspecified joint Therapeutic drug monitoring XR HAND LEFT 3VW OR MORE Routine 05/05/2022 11:57 AM CDT Rheumatoid arthritis, involving unspecified site, unspecified whether rheumatoid factor present (HCC) Arthralgia, unspecified joint Therapeutic drug monitoring XR ELBOW RIGHT 3VW OR MORE Routine 05/05/2022 11:57 AM CDT Rheumatoid arthritis, involving unspecified site, unspecified whether rheumatoid factor present (HCC) Arthralgia, unspecified joint Therapeutic drug monitoring XR ELBOW LEFT 3VW OR MORE Routine 05/05/2022 11:57 AM CDT Rheumatoid arthritis, involving unspecified site, unspecified whether rheumatoid factor present (HCC) Arthralgia, unspecified joint Therapeutic drug monitoring XR CERVICAL SPINE 4 OR 5VW Routine 05/05/2022 11:57 AM CDT Rheumatoid arthritis, involving unspecified site, unspecified whether rheumatoid factor present (HCC) Arthralgia, unspecified joint Therapeutic drug monitoring documented in this encounter Results * XR CERVICAL SPINE 4 OR 5VW (05/05/2022 11:57 AM CDT) Anatomical Region Laterality Modality Spine Radiographic Gregg ging 05/05/2022 2:01 PM CDT Impressions 05/06/2022 3:08 PM CDT IMPRESSION: Mild degenerative changes are seen throughout cervical spine, similar to prior study. Mild anterolisthesis of C2 over C3 on the flexion view, unchanged compared to 07/22/2021. Report dictated by Earl Rome MD (commercial lending vice president). IDr. Mackenzie M.D. have personally reviewed and [...] 07/22/2021. Report dictated by Earl Rome MD (commercial lending vice president). Dr. Mackenzie Anguiano M.D. have personally reviewed and interpretedthis examination/study. This report was electronically signed by Mackenzie OSEI M.D. on 05/06/2022 3:08 PM . Catherine Hoffman MD DIAGNOSTIC GREGG GING ORDERABLES * XR ELBOW LEFT 3VW OR MORE (05/05/2022 11:57 AM CDT) Anatomical Region Laterality Modality Upper Extremity Radiographic Gregg ging 05/05/2022 12:5 3 PM CDT Impressions 05/05/2022 12:54 PM CDT Findings/Impression: No acute fractures or dislocations is seen. No bony erosions or destructions. Joint space grossly preserved. No significant joint effusion or soft tissue swelling is seen. This report was electronically signed by SHERWIN ASIF MD, [facility] ??on 05/05/2022 12:54 PM . Narrative 05/05/2022 [...] was electronically signed by SHERWIN ASIF MD, [facility] on 05/05/2022 12:54 PM . Catherine Hoffman MD DIAGNOSTIC GREGG GING ORDERABLES * XR ELBOW RIGHT 3VW OR MORE (05/05/2022 11:57 AM CDT) Anatomical Region Laterality Modality Upper Extremity Radiographic Gregg ging 05/05/2022 12:5 2 PM CDT Impressions 05/05/2022 12:53 PM CDT Findings/Impression: No acute fractures or dislocations is seen. No bony erosions or destructions. Joint space grossly preserved. No significant joint effusion or soft tissue swelling is seen. This report was electronically signed by SHERWIN ASIF MD, FRMILI ??on 05/05/2022 12:53 PM . Narrative 05/05/2022 [...] 12:53 PM . Catherine Hoffman MD DIAGNOSTIC GREGG GING ORDERABLES * XR HAND RIGHT 3VW OR MORE (05/05/2022 11:57 AM CDT) Anatomical Region Laterality Modality Wrist / Hand Radiographic Gregg ging 05/05/2022 12:4 6 PM CDT Impressions [...] electronically signed by SHERWIN ASIF MD, FRMILI on 05/05/2022 12:48 PM . Catherine Hoffman MD DIAGNOSTIC GREGG GING ORDERABLES * XR HAND LEFT 3VW OR MORE (05/05/2022 11:57 AM CDT) Anatomical Region Laterality Modality Wrist / Hand Radiographic Gregg ging 05/05/2022 12:5 1 PM CDT Impressions 05/05/2022 12:52 PM CDT Findings/Impression: No acute fractures or dislocations is seen. Diffuse osteopenia is noted. Mild narrowing of the interphalangeal joint spaces are seen, otherwise joint spaces are unremarkable. No bony erosions are identified. No significant soft tissue swelling. This report was electronically signed by SHERWIN ASIF MD, EMI ??on 05/05/2022 12:52 PM . Narrative 05/05/2022 [...] by SHERWIN ASIF MD, FRCR on 05/05/2022 12:52 PM . Catherine Hoffman MD DIAGNOSTIC GREGG GING ORDERABLES * XR FOOT LEFT 3VW OR MORE (05/05/2022 11:57 AM CDT) Anatomical Region Laterality Modality Ankle / Foot Radiographic Gregg ging 05/05/2022 12:5 5 PM CDT Impressions [...] 12:56 PM . Catherine Hoffman MD DIAGNOSTIC GREGG GING ORDERABLES * XR FOOT RIGHT 3VW OR MORE (05/05/2022 11:57 AM CDT) Anatomical Region Laterality Modality Ankle / Foot Radiographic Gregg ging 05/05/2022 12:5 4 PM CDT Impressions [...] 12:55 PM . Catherine Hoffman MD DIAGNOSTIC GREGG GING ORDERABLES * XR KNEE RIGHT 4VW OR MORE (05/05/2022 11:57 AM CDT) Anatomical Region Laterality Modality Lower Extremity Radiographic Gregg ging 05/05/2022 12:4 5 PM CDT Impressions [...] was electronically signed by SHERWIN ASIF MD, [facility] on 05/05/2022 12:46 PM . Catherine Hoffman MD DIAGNOSTIC GREGG GING ORDERABLES * XR KNEE LEFT 4VW OR MORE (05/05/2022 11:57 AM CDT) Anatomical Region Laterality Modality Lower Extremity Radiographic Gregg ging 05/05/2022 12:4 6 PM CDT Impressions 05/05/2022 12:46 PM CDT Findings/Impression: The joint space grossly preserved. No significant osteophytes seen. Patella and patellofemoral joints are unremarkable. No acute fractures or dislocations. This report was electronically signed by SHERWIN ASIF MD, [facility] ??on 05/05/2022 12:46 PM . Narrative [...] by SHERWIN ASIF MD, MILI on 05/05/2022 12:46 PM . Catherine Hoffman MD DIAGNOSTIC GREGG GING ORDERABLES documented in this encounter Visit Diagnoses Diagnosis Rheumatoid arthritis, involving unspecified site, unspecified whether rheumatoid factor present (HCC) Arthralgia, unspecified joint Therapeutic drug monitoring Encounter for therapeutic drug monitoring documented in this encounter
--- OUTSIDE RECORDS SUMMARY | 2024-10-16 22:32 | XMS_ITS | Encounter Summary ---
Author Organization [facility] Address [address] [place] [address] Care Team Providers Care Operating Engineer Name Role Phone Provider, Abstract Primary Care Provider Unavail able Reason for Referral * Laboratory Services (Routine) - Closed Specialty Diagnoses / Procedures Referred By Amanda nunez Referred To Contact Diagnoses Secondary thrombocytosis Procedures JAK2 MUTATION Ifeanyi Marquez MD [address] [phone] [address] Referral ID Status Reason Start Date Expiration Date Visits Requested Visits Authorized [id number] Closed Ordering Department To Schedule 03/19/2019 06/19/2020 1 1 Reason for Visit * Reason Comments Establish Care Thrombocytosis Encounter Details Date Type Department Care Team (Late st Contact Info) Description 03/16/2019 11:30 AM CDT Office Visit [facility] - [place] [address] [place] [address] [address] [place] [address] Ifeanyi Marquez MD [address] [place] [address] Secondary thrombocytosis (Primary Dx) Social History Tobacco Use Types Packs/Day Years Used Date Smoking Tobacco: Every Day Cigarettes 0.5 20 Smokeless Tobacco: Never Alcohol Use Standard Drinks/Week Comments Never 0 (1 standard drink = 0.6 oz pur e alcohol) Sex and Gender Information Value Date Recorded Sex Assigned at Not on file Gender Identity Not on file Sexual Orientation Not on file documented as of this encounter Last Filed Vital Signs Vital Sign Reading Time Taken Comments Blood Pressure 107/77 03/16/2019 11:43 AM CDT Pulse 95 03/16/2019 11:43 AM CDT Temperature - - Respiratory Rate - - Oxygen Saturation 98% 03/16/2019 11:43 AM CDT Inhaled Oxygen Concentration - - Weight 47.4 kg (104 lb 9.6 oz) 03/16/2019 11:43 AM CDT Height 152.4 cm (5') 03/16/2019 11:43 AM CDT Body Mass Index 20.43 03/16/2019 11:43 AM CDT documented in this encounter Progress Notes * Ifeanyi Marquez MD - 03/16/2019 4:06 PM CDT Hematology-oncology consult Note Requesting Physician Sultana Sullivan MD. Primary Care Physician Provider, Abstract Stl Problem list There is no problem list on file for this patient. Previous TREATMENT ? Measurable Disease ? Reason for Visit Sultana Vincent is a 59 y.o. female who was referred for consultation for thrombocytosis. History of present illness This is a pleasant 67-year-old female who has been in good health other than history of smoking 3 packs of cigarettes per week for more than 40 years duration. She had labs done during the routine visit with her primary care physician on February 05, 2019 showed WBC 7.1 hemoglobin 14.5 and platelet of 428,000. He denies any history of thromboembolic events including stroke heart attack andblood clots. He denies any arthritis. Denies any infection. Past Medical History Past Medical History: Diagnosis Date ??? Thrombocytosis Surgical History Past Surgical History: Procedure Laterality Date ??? HX TONSILLECTOMY ??? HX TUBAL LIGATION Medications Current Outpatient Medications Medication Sig Dispense Refill ??? VITAMIN D2 50,000 unit capsule Take 1 Capsule by mouth every 7 days. 3 No current facility-administered medications for this visit. Allergies No Known Allergies Immunizations: There is no immunization history on file for this patient. Family History Family History Problem Relation Name Age of Onset ??? Testicular Cancer Father ??? Hypertension Mother ??? Kidney Disease Mother ??? Skin Cancer Brother ??? Healthy Half-Sister ??? Healthy Half-Sister ??? Healthy Half-Brother Social History Social History Tobacco Use ??? Smoking status: Current Every Day Smoker Packs/day: 0.50 Years: 20.00 Pack years: 10.00 Types: Cigarettes ??? Smokeless tobacco: Never Used Substance Use Topics ??? Alcohol use: Never Frequency: Never Review of Systems Constitutional: No fever; no night sweats; no anorexia; no weight loss; no fatique NEENT: No headache; no change in vision; no change in hearing; no sore throat; no dysphagia Respiratory: No shortness of breath; no pleuritic chest pain; no cough; no hemoptysis Cardiac: No cardiac-like chest pain; no palpitations; no orthopnea; no PND; no BLACK Breasts: No tenderness; no masses GI: No abdominal pain; no nausea; no vomiting; no diarrhea; no hematochezia; no melena : No dysuria; no frequency; no hesitancy; no hematuria DOCUMENT PREPARER MICROFILMING: Musculosketetal: no bone pain; no arthralgia; no joint swelling; no myalgia; Skin: no pruritis; no rash; no petechiae; no ecchymoses Endocrine: no polydipsia; no polyuria; no unusual weight gain Neuro: No headache; no change in vision; no sensory changes; no muscle weakness; no confusion; no seizures Psych: no anxiety; no depression; Physical Exam Vitals: As per nursing note Constitutional: Well developed, well nourished, no acute distress, non-toxic appearance Teeth and gum. No signs of infection or swelling. Eyes: PERRL, conjunctiva normal HEENT: Atraumatic, external ears normal, nose normal, oropharynx moist, no pharyngeal exudates. no sinus tenderness Neck- normal range of motion, no tenderness, supple Respiratory: No respiratory distress, normal breath sounds, no rales, no wheezing Cardiovascular: Normal rate, normal rhythm, no murmurs, no gallops, no rubs GI: Soft, nondistended, normal bowel sounds, nontender, no splenomegaly, no hepatomegaly, no mass, no rebound, no guarding : No costovertebral angle tenderness Musculoskeletal: No edema, no tenderness, no deformities. Back- no tenderness Integument: Well hydrated, no rash, Digits and nails inspection normal Lymphatic: No lymphadenopathy noted Neurologic: Alert & oriented x 3, CN 2-12 normal, normal motor function, normal sensory function, no focal deficits noted Psychiatric: Speech and behavior appropriate ? labs No results found for this or any previous visit (from the past 24 hour(s)). Labs from February 05 showed WBC 7.1 hemoglobin 14.5 MCV 92 platelet 428,000 neutrophils 52% lymphocytes 39% creatinine 0.8 total protein 6.7.4. Pathology ? Imaging & Other Studies Performance Status? Assessment / Plan: ?Mild thrombocytosis with normal hemoglobin 5-year-old female who has been in good healthshe has a history of smoking 3 pack/week for more than 40 years duration. She was seen by her primary care physician for routine visit and labs were drawn that showed elevated she denies any previoushistory of blood clots including stroke heart attack and pulmonary exam. I have discussed the lab finding with the patient. I have informed. I also discussed the possibility of bone marrow disorder like a essential thrombocythemia. I will order the pertinent work-up that would include C-reactive protein, sedimentation rate, CBC with differential and Panchito 2 mutation. I have instructed her to take baby aspirin daily. I have answered all the questions to patient's satisfaction. Thank you very much for allowing me to participate in Sultana Vincent's evaluation and management. Please feel free to contact if I can be of any further assistance in your patient???s care requiring hematology or oncology evaluation. Sincerely, ? ? Ifeanyi Marquez M.D. cell TOBACCO COUNSELING She was counseled to discontinue tobacco use. Ifeanyi Marquez MD ,03/16/2019 4:06 PM ? Total time spent 80 minutes, two third of the total time spent counseling patient [id number]. CC:?Sultana Sullivan MD documented in this encounter Plan of Treatment Scheduled Orders Name Type Priority Associated Diagnoses Orde r Schedule SEDIMENTATION RATE Lab Routine Secondary thrombocytosis Ordered: 03/16/2019 documented as of this encounter Procedures Procedure Name Priority Date/Time Associated Diagnosis Comments CBC WITH DIFFERENTIAL Routine 03/30/2019 Secondary thrombocytosis C-REACTIVE PROTEIN Routine 03/30/2019 Secondary thrombocytosis COMPREHENSIVE METABOLIC PANEL Routine 03/30/2019 Secondary thrombocytosis JAK2 MUTATION Routine 03/23/2019 Secondary thrombocytosis documented in this encounter Results * CBC WITH DIFFERENTIAL (03/30/2019) Blood Ifeanyi Marquez MD HEMATOLOGY ORDERABLE S Performing Organization Address City/[facility] Co de Phone Number EXTERNAL LAB * COMPREHENSIVE METABOLIC PANEL (03/30/2019) Blood Ifeanyi Marquez MD CHEMISTRY ORDERABLES Performing Organization Address [facility] Co de Phone Number EXTERNAL LAB * C-REACTIVE PROTEIN (03/30/2019) Blood Ifeanyi Marquez MD CHEMISTRY ORDERABLES Performing Organization Address [facility] Co de Phone Number EXTERNAL LAB * JAK2 MUTATION (03/23/2019) Blood BLOOD SPECIMEN / Unknown Ifeanyi Marquez MD CHEMISTRY ORDERABLES Performing Organization Address [facility] Co de Phone Number EXTERNAL LAB documented in this encounter Visit Diagnoses Diagnosis Secondary thrombocytosis- Primary Essential thrombocythemia documented in this encounter Care Teams Operating Engineer Relationship Specialty Start Date End Date Provider, Abstract NO ADDRESS ON FILE PCP - General 02/27/19 documented as of this encounter
== END 2024-10-09 10:59 | disposition home or self-care (01) ==
PROVIDERS: Emergency Provider Nurse Practitioner; Referring Provider Emergency Medicine
DX: R09.82 Postnasal drip (principal); J01.90 Acute sinusitis, unspecified; M06.9 Rheumatoid arthritis, unspecified
CPT/HCPCS: 99213; G0463

== ENCOUNTER 2025-06-28 13:29 | Emergency (ER) | payer MEDICARE, SELFPAY ==
--- OUTSIDE RECORDS SUMMARY | 2014-01-08 06:09 | XMS_ITS | Continuity of Care Document ---
Author Organization [facility] Address [address] [place] [id number] Phone Care Team Providers Care Occ Therapy Asst Name Role Phone Joaquin NUGENT, Berenice Proctor Unavailable Unavaila ble Allergies, Adverse Reactions, Alerts Substance Reaction Status Criticality No Known Drug Allergies Active No I nformation Medications Medication Instructions Dosage Effective Dates (start - stop) Status Comments amoxicillin 500 mg tablet take 2 tablets by oral route 1 hour prior to dental procedure - Active multivitamin tablet take 1 tablet by ora l route every day with food - Active Glucosamine Chondroitin Maximum Strength 500 mg-400 mg capsule take 1 tab by oral route twice daily - Active Fish Oil 1,000 mg capsule take 1 Capsule by Oral route 2 times every day - Active Vitamin B-12 25 mcg Oral CAPSULE take 1 tab by oral route twice daily - Active calcium 500 mg tablet take 1 Tablet by O ral route 2 times every day - Active Procedures Procedure Date Colonoscopy Flex; W/remov Les- 13 [facility] Facility Charge Level Iv-surg Path Gross/micro 13 Advance Directives Directive Yes / No Effective Date File Name No Information Encounters Encounter Description Practice Location Reason(s) For Visit Diagnoses Date Provider Providers Copied on Encounter [facility], [address] [place] [address], [place], [place], [id number] tel:[phone] [facility] No Information 4 Joaquin houser [address] [place] [address], [id number], [place]. tel:[phone] [facility], [address] [place] [address], [place], [place], [id number] tel:[phone] [facility] Colon polypDivertic ulosisScreeni ng for colon cancer 3 Starla Rivera. [address] [place] [address], [id number], [place]. tel:[phone] Referring Provider: Anaid Vasquez, [address] [place] [address], [id number]. tel:[phone] [facility], [address] [place] [address], [id number] tel:[phone] [place] [address] Endoscopy Center No Information 3 [facility]. [address] [place] [address], [id number], [place]. tel:[phone] Referring Provider: Nicole Miller, [address] [place] [address], [id number]. tel:[phone] [facility], [address] [place] [address], [id number] tel:[phone] [facility] No Information 3 Starla Rivera. [address] [place] [address], [id number], [place]. tel:[phone] Referring Provider: Anaid Vasquez, [address] [place] [address], [id number]. tel:[phone] [facility], [address] [place] [address], [id number] tel:[phone] [facility] Family history of colon polyps 3 Starla Rivera. [address] [place] [address], [id number], [place]. tel:[phone] Referring Provider: Anaid Vasquez, [address] [place] [address], [id number]. tel:[phone] Family History Family Member Type Diagnosis Age At Onset No Information Payers Payer name Insurance type Covered democrat ID Authoriza tion(s) No Information Social History Type Description Quantity Date Captured Comments Sex Female Smoking Status No Information Chief Complaint And Reason For Visit No Information Reason For Referral Reason For Referral No Information History Of Present Illness Encounter Date Complaint History Of Prese nt Illness No Information Functional Status Date Functional Assessmen t No Information Instructions Date Instruction Additional Infor mation No Information Assessments Type Assessment Date No Information Patient Care Teams Name Effective Dates (start - stop) Status Members No Information
--- OUTSIDE RECORDS SUMMARY | 2014-01-08 06:09 | XMS_ITS | Continuity of Care Document ---
Author Organization [facility] Address [address] [place] [id number] Phone Care Team Providers Care Project Development Engineer Name Role Phone Joaquin NUGENT, Berenice Proctor [...] Diagnoses Date Provider Providers Copied on Encounter [facility], [address] [place] [address], [place], [place], [id number] tel:[phone] [facility] No Information 4 Joaquin houser [address] [place] [address], [id number], [place]. tel:[phone] [facility], [address] [place] [address], [place], [place], [id number] tel:[phone] [facility] Colon polypDivertic ulosisScreeni ng for colon cancer 3 Starla Rivera. [address] [place] [address], [id number], [place]. tel:[phone] Referring Provider: Anaid Vasquez, [address] [place] [address], [id number]. tel:[phone] [facility], [address] [place] [address], [id number] tel:[phone] [place] [address] Endoscopy Center No Information 3 [facility]. [address] [place] [address], [id number], [place]. tel:[phone] Referring Provider: Nicole Miller, [address] [place] [address], [id number]. tel:[phone] [facility], [address] [place] [address], [id number] tel:[phone] [facility] No Information 3 Starla Rivera. [address] [place] [address], [id number], [place]. tel:[phone] Referring Provider: Anaid Vasquez, [address] [place] [address], [id number]. tel:[phone] [facility], [address] [place] [address], [id number] tel:[phone] [facility] Family history of colon polyps 3 Starla Rivera. [address] [place] [address], [id number], [place]. tel:[phone] Referring Provider: Anaid Vasquez, [address] [place] [address], [id number]. tel:[phone] Family History Family Member Type Diagnosis Age At Onset No Information Payers Payer name Insurance type Covered green party ID Authoriza tion(s) No Information Social History [...]
--- OUTSIDE RECORDS SUMMARY | 2021-06-29 04:30 | XMS_ITS | Continuity of Care Document ---
Author Organization [facility] Address [address] [place] [phone] Phone Care Team Providers Care Vp Product Management Name Role Phone THELMA NATHAN OD Unavailable Unavailable Allergies, Adverse Reactions, Alerts Substance Reaction Status Criticality No Known Allergies Active No Inform ation Medications Medication Instructions Dosage Effective Dates (start - stop) Status Comments LIPITOR (unknown strength) Not Available - Active LEXAPRO (unknown strength) Not Available - Active TOPROL XL (unknown strength) Not Available - Active PROBIOTIC (unknown strength) Not Available - Active BIOTIN (unknown strength) Not Available - Active multivitamin tablet - Active Glucosamine 500 mg tablet - Active calcium-magnesium 300 mg-300 mg tablet - Active B Complex tablet,extended release - Active Fish Oil 1,000 mg (120 mg-180 mg) capsule take 1 capsule once daily - Active Procedures Procedure Date REFRACTION EYE EXAM, NEW PATIENT Eyeglasses delux frames Progressive lens per lens Anti-reflective coating Tax REFRACTION EYE EXAM & TREATMENT REFRACTION EYE EXAM & TREATMENT Advance Directives Directive Yes / No Effective Date File Name No Information Encounters Encounter Description Practice Location Reason(s) For Visit Diagnoses Date Provider Providers Copied on Encounter [facility], [address] [facility], [place], [place], [id number], [place] tel:[phone] [facility] decreased vision (chief complaint) Other vitreous opacities, left eyeHypermetropia, bilateralBilatera l nuclear sclerosis cataracts Jun- 0 1 [facility] R[facility]. [address] [place] [address], [id number]. tel:[phone] [facility], [address] [place] [address], [place], [place], [id number], [place] tel:[phone] [facility] No Information Jun- 1 [facility]. [address] [place] [address], [id number]. tel:[phone] [facility], [address] [place] [address], [id number], [place] tel:[phone] [facility] routine exam (chief complaint) Hypermetropia, bilateral 7 No Information [facility], [address] [place] [address], [id number], [place] tel:[phone] [facility] Other vitreous opacitiesOther vitreous opacities 4 No Information Family History Family Member Type Diagnosis Age At Onset No Information Payers Payer name Insurance type Covered libertarian ID Authorhill cruz(s) [facility] [id number] Social History Type Description Quantity Date Captured Comments Alcohol Use Details 1 wine daily Caffeine Use Details Unknown Tobacco Use Status No Information Smoking Status Former smoker Non-Smoking Tobacco Use Details : No Details Available : No Details Available Sex Female Chief Complaint And Reason For Visit From encounter dated '06/29/2021 09:30'. decreased vision (chief complaint). Description: The 61 year old female presents for evaluation of decreased vision in the right eye and left eye. It has been several years since last exam with Dr Sadler. Pt had RK with Dr Cuello in the s. Her near vision keeps getting worse and now her distancevision is worsening too. Reason For Referral Reason For Referral No Information History Of Present Illness Encounter Date Complaint History Of Prese nt Illness decreased vision The 61 year old female presents for evaluation of decreased vision in the right eye and left eye. It has been several years since last exam with Dr Sadler. Pt had RK with Dr Cuello in the 90s. Her near vision keeps getting worse and now her distance vision is worsening too. routine exam Pt states that s he thinks she doesn't see as well in the dist. Functional Status Date Functional Assessmen t No Information Instructions Date Instruction Additional Infor mation Impression/Plan Related to Other vitreous opacities, left eye Impression/Plan Related to Hyper metropia, bilateral Impression/Plan Related to Bilat eral nuclear sclerosis cataracts Return in [address] Sadler for Dilated Exam. Related to Hypermetropia, bilateral Follow up - Return i n [address] Sadler for Dilated Exam. Related to Hypermetropia, bilateral Impression/Plan - Di scussed diagnosis in detail with patient. New glasses Rx was given today. Related to Hypermetropia, bilateral - Return in [address] Sadler for Dilated Exam. Related to floaters floaters OS Conditio n: new prob, no addtl w/u needed. - Discussed diagnosis in detail with patient. Discussed signs and symptoms of retinal detachment. Discussed signs and symptoms of PVD/floaters. Educational materials provided: or verbally educated. Related to floaters Assessments Type Assessment Date assessment Other vitreous opacities, left e ye impression Other vitreous opacities, left e ye: H43.392 assessment Hypermetropia, bilateral 2020 impression Hypermetropia, bilateral: H52.03 OU assessment Bilateral nuclear sclerosis [place] racts impression Bilateral nuclear sc lerosis cataracts: H25.13. Condition: new prob, no addtl w/u needed Patient Care Teams Name Effective Dates (start - stop) Status Members No Information
--- OUTSIDE RECORDS SUMMARY | 2021-06-29 04:30 | XMS_ITS | Continuity of Care Document ---
Author Organization [facility] Address [address] [place] [phone] Phone Care Team Providers Care Photo Lab Manager Name Role Phone THELMA NATHAN OD Unavailable [...] on Encounter [facility], [address] [facility], [place], [place], [id number], [place] tel:[phone] [facility] decreased vision (chief complaint) Other vitreous opacities, left eyeHypermetropia, bilateralBilatera l nuclear sclerosis cataracts Jun- 0 1 [facility] RENEE. [address] [place] [address], [id number]. tel:[phone] [facility], [address] [place] [address], [place], [place], [id number], [place] tel:[phone] [facility] No Information Jun- 1 [facility]. [address] [place] [address], [id number]. tel:[phone] [facility], [address] [place] [address], [id number], [place] tel:[phone] [facility] routine exam (chief complaint) Hypermetropia, bilateral 7 No Information [facility], [address] [place] [address], [id number], [place] tel:[phone] [facility] Other vitreous opacitiesOther vitreous opacities 4 No Information Family History Family Member Type Diagnosis Age At Onset No Information Payers Payer name Insurance type Covered republican ID Authorhill cruz(s) [facility] [id number] Social History Type Description Quantity Date Captured [...]
--- OUTSIDE RECORDS SUMMARY | 2024-01-05 19:00 | XMS_ITS | Continuity of Care Document ---
Author Organization [facility] Address [address] [place] [id number] Phone Care Team Providers Care Master Cosmetologist Name Role Phone Korey Lazo MD Unavailable Unavailable Allergies, Adverse Reactions, Alerts Substance Reaction Status Criticality No Known Drug Allergies Active No I nformation No Known Drug Allergies Active No I nformation Advance Directives Directive Yes / No Effective Date File Name No Information Encounters Encounter Description Practice Location Reason(s) For Visit Diagnoses Date Provider Providers Copied on Encounter [facility] , [address] [place] [address], [id number], [place] tel:[phone] [facility] Cataract extraction status, right eyeCataract extraction status, left eyeDry eye syndrome of bilateral lacrimal glands Mar-2 4 Clifton Nair. [address] [place], [address], [place]. tel: [phone] [facility] , [address] [place] [address], [id number], [place] tel:[phone] [facility] Cataract extraction status, left eyeCataract extraction status, right eye Mar-2 0 4 Zehra Greenfield. [address] [place], [address], [place]. tel: [phone] [facility] , [address] [place] [address], [id number], [place] tel:[phone] [facility] Combined forms of age-related cataract, left eyeCombined forms of age-related cataract, left eyeRegular astigmatism, left eyeRegular astigmatism, left eye Dec-1 9 4 Lazo Korey. [address] [place], [address], [place]. tel: [phone] [facility] , [address] [place] [address], [id number], [place] tel:[phone] [facility] Combined forms of age-related cataract, left eyeIrregular astigmatism, left eyeCataract extraction status, right eye Mar-0 8 4 Lazo Korey. [address] [place], [address], [place]. tel: [phone] [facility] , [address] [place] [address], [id number], [place] tel:[phone] [facility] Cataract extraction status, right eye Nov- 4 Zehra Greenfield. [address], [place], [address], [place]. tel: [phone] [facility] , [address] [place] [address], [id number], [place] tel:[phone] [facility] Combined forms of age-related cataract, right eyeIrregular astigmatism, right eyeCombined forms of age-related cataract, right eyeIrregular astigmatism, right eye Feb- 4 Lazo Korey. [address] [place], [address], [place]. tel: [phone] [facility] , [address] [place] [address], [id number], [place] tel:[phone] [facility] Combined forms of age-related cataract, right eyeAge-related nuclear cataract, bilateralAge-relate d nuclear cataract, left eyeOther specified postprocedural statesOpen angle with borderline findings, high risk, bilateralOpen angle with borderline findings, low risk, bilateralOther specified postprocedural statesOpen angle with borderline findings, high risk, bilateralIrregular astigmatism, bilateralCombined forms of age-related cataract, right eyeCombined forms of age-related cataract, right eyeRegular astigmatism, left eyeAge-related nuclear cataract, left eyeOpen angle with borderline findings, high risk, bilateralIrregular astigmatism, bilateralDry eye syndrome of bilateral lacrimal glandsAge-related nuclear cataract, left eyeOpen angle with borderline findings, high risk, bilateralDry eye syndrome of bilateral lacrimal glandsIrregular astigmatism, right eyeHypermetropia, bilateralAge-relate d nuclear cataract, bilateralOpen angle with borderline findings, high risk, bilateralOther specified postprocedural states 0 9 4 Lazo Korey. [address] [place], [address], [place]. tel: [phone] [facility] , [address] [place] [address], [id number], [place] tel:[phone] [place] [facility] Open angle with borderline findings, high risk, bilateralAge-relate d nuclear cataract, left eyeOther specified postprocedural statesCombined forms of age-related cataract, right eyeIrregular astigmatism, right eyeRegular astigmatism, left eye Nov-0 4 Lazo Korey. [address] [place], [address], [place]. tel: [phone] [facility] , [address] [place] [address], [id number], [place] tel:[phone] [place] [facility] Age-related nuclear cataract, bilateralDry eye syndrome of bilateral lacrimal glandsOpen angle with borderline findings, high risk, bilateral 4 Zehra Greenfield. [address] [place], [address], [place]. tel: [phone] [facility] , [address] [place] [address], [id number], [place] tel:[phone] [place] [facility] Open angle with borderline findings, high risk, bilateral Jul- 3 Zehra Greenfield. [address] [place], [address], [place]. tel: [phone] [facility] , [address] [place] [address], [id number], [place] tel:[phone] [place] [facility] Open angle with borderline findings, low risk, bilateralDry eye syndrome of bilateral lacrimal glandsAge-related nuclear cataract, bilateralHypermetro rom, bilateral 3 Zehracherelle Greenfield. [address], [place], [address], [place]. tel: [phone] Family History Family Member Type Diagnosis Age At Onset Grandfather Problem (finding) Fhx of diabetes mellitu s Mother Problem (finding) Fhx of glaucoma Payers Payer name Insurance type Covered alliance party ID Authoriza tion(s) No Information Social History Type Description Quantity Date Captured Comments Alcohol Use Details Unknown Caffeine Use Details Unknown Tobacco Use Status Former smoker Smoking Status Former smoker Non-Smoking Tobacco Use Details : No Details Available : No Details Available Sex Female Chief Complaint And Reason For Visit No Information Reason For Referral Reason For Referral No Information History Of Present Illness Encounter Date Complaint History Of Prese nt Illness No Information Functional Status Date Functional Assessmen t No Information Instructions Date Instruction Additional Infor mation Impression/Plan Related to Patie nt has had cataract surgery. Intraocular lens in good position. Patient is doing well post operatively. Pt instructed to start/continue the prescribed drop regime. Post operative instructions and follow up recommendations were discussed with the phani Impression/Plan Related to Patie nt has had cataract surgery. 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 The tear glands of the eye are producing a low volume or low quality of tear. Impression/Plan Related to Patie nt has had cataract surgery W/ GREG 12/27/2023 Impression/Plan Related to Patie nt has had cataract surgery. Impression/Plan Related to Astig matism Impression/Plan Related to Catar act Impression/Plan Related to Catar act Impression/Plan Related to Astig matism Impression/Plan Related to Patie nt has had cataract surgery. Impression/Plan Related to Catar act Impression/Plan Related to Astig matism Impression/Plan Related to Patie nt has had cataract surgery. 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 Impression/Plan Related to Irreg ular Astigmatism Impression/Plan Related to Irreg ular Astigmatism Impression/Plan Related to [place] revealed cataract. Impression/Plan Related to [facility] revealed the patient is at risk for glaucoma based on several risk factors. Impression/Plan Related to [facility] revealed cataract. 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 Impression/Plan Related to [facility] revealed the patient is at risk for glaucoma based on several risk factors. Impression/Plan Related to [facility] revealed the patient is at risk for glaucoma based on several risk factors. OCT and VF testing reviewed today Impression/Plan Related to [facility] revealed the patient is at risk for glaucoma based on several risk factors. OCT and VF testing reviewed today Impression/Plan Related to s/p m yopic RK OU 1982 Impression/Plan Related to s/p m yopic RK OU 1982 Impression/Plan Related to [facility] revealed cataract. I recommend astigmatism correction via an LRI (Limbal Relaxing Incision) or Toric IOL. The specific risk of wound leak with an LRI or Toric lens malposition, which both may require a secondary surgery, was discussed with pa [facility] revealed the patient is at risk for glaucoma based on several risk factors. Impression/Plan Related to Catar act Impression/Plan Related to Catar act Impression/Plan Related to Astig matism [facility] I recommend astigmatism correction via an LRI (Limbal Relaxing Incision) or Toric IOL. The specific risk of wound leak with an LRI or Toric lens malposition, which both may require a secondary surgery, was discussed with amina Impression/Plan Related to [facility] revealed cataract. I recommend astigmatism correction via an LRI (Limbal Relaxing Incision) or Toric IOL. The specific risk of wound leak with an LRI or Toric lens malposition, which both may require a secondary surgery, was discussed with amina Impression/Plan Related to [facility] revealed the patient is at risk for glaucoma based on several risk factors. OCT and VF testing reviewed today Impression/Plan Related to Irreg ular Astigmatism Impression/Plan Related to s/p m yopic RK OU 1982 Impression/Plan Related to Catar act Impression/Plan Related to Refra ctive testing reveals hyperopia (farsightedness). Impression/Plan Related to Catar act Impression/Plan Related to Irreg ular Astigmatism Impression/Plan Related to Astig matism Impression/Plan Related to [facility] revealed the patient is at risk for glaucoma based on several risk factors. OCT and VF testing reviewed today Impression/Plan Related to [facility] revealed cataract. I recommend astigmatism correction via an LRI (Limbal Relaxing Incision) or Toric IOL. The specific risk of wound leak with an LRI or Toric lens malposition, which both may require a secondary surgery, was discussed with amina Impression/Plan Related to s/p m yopic RK OU 1982 Impression/Plan Related to [facility] revealed the patient is at risk for glaucoma based on several risk factors. Impression/Plan Related to [facility] revealed cataract. 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 Impression/Plan Related to [facility] revealed the patient is at risk for glaucoma based on several risk factors. Impression/Plan Related to [facility] revealed cataract. Impression/Plan Related to [facility] revealed the patient is at risk for glaucoma based on several risk factors. 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 [facility] ([facility]arsightedness). Assessments Type Assessment Date No Information Patient Care Teams Name Effective Dates (start - stop) Status Members No Information
--- OUTSIDE RECORDS SUMMARY | 2024-01-05 19:00 | XMS_ITS | Continuity of Care Document ---
Author Organization [facility] Address [address] [place] [id number] Phone Care Team Providers Care Presentation Team Member Name Role Phone Korey Lazo MD Unavailable Unavailable Allergies, Adverse Reactions, Alerts Substance Reaction Status Criticality No Known Drug Allergies Active No I nformation No Known Drug Allergies Active No I nformation Advance Directives Directive Yes / No Effective Date File Name No Information Encounters Encounter Description Practice Location Reason(s) For Visit Diagnoses Date Provider Providers Copied on Encounter [facility] , [address] [place] [address], [id number], [place] tel:[phone] [facility] Cataract extraction status, right eyeCataract extraction status, left eyeDry eye syndrome of bilateral lacrimal glands Mar-2 4 Clifton Nair. [address] [place], [address], [place]. tel: [phone] [facility] , [address] [place] [address], [id number], [place] tel:[phone] [facility] Cataract extraction status, left eyeCataract extraction status, right eye Mar-2 0 4 Zehra Greenfield. [address] [place], [address], [place]. tel: [phone] [facility] , [address] [place] [address], [id number], [place] tel:[phone] [facility] Combined forms of age-related cataract, left eyeCombined forms of age-related cataract, left eyeRegular astigmatism, left eyeRegular astigmatism, left eye Dec-1 9 4 Lazo Korey. [address] [place], [address], [place]. tel: [phone] [facility] , [address] [place] [address], [id number], [place] tel:[phone] [facility] Combined forms of age-related cataract, left eyeIrregular astigmatism, left eyeCataract extraction status, right eye Mar-0 8 4 Lazo Korey. [address] [place], [address], [place]. tel: [phone] [facility] , [address] [place] [address], [id number], [place] tel:[phone] [facility] Cataract extraction status, right eye Nov- 4 Zehra Greenfield. [address], [place], [address], [place]. tel: [phone] [facility] , [address] [place] [address], [id number], [place] tel:[phone] [facility] Combined forms of age-related cataract, right eyeIrregular astigmatism, right eyeCombined forms of age-related cataract, right eyeIrregular astigmatism, right eye Feb- 4 Lazo Korey. [address] [place], [address], [place]. tel: [phone] [facility] , [address] [place] [address], [id number], [place] tel:[phone] [facility] forms of age-related cataract, right eyeAge-related [...] states 0 9 4 Lazo Korey. [address] [place], [address], [place]. tel: [phone] [facility] , [address] [place] [address], [id number], [place] tel:[phone] [facility] Open angle with borderline findings, high risk, bilateralAge-relate d nuclear cataract, left eyeOther specified postprocedural statesCombined forms of age-related cataract, right eyeIrregular astigmatism, right eyeRegular astigmatism, left eye Nov-0 4 Lazo Korey. [address] [place], [address], [place]. tel: [phone] [facility] , [address] [place] [address], [id number], [place] tel:[phone] [facility] Age-related nuclear cataract, bilateralDry eye syndrome of bilateral lacrimal glandsOpen angle with borderline findings, high risk, bilateral 4 Zehra [place]. [address] [place], [address], [place]. tel: [phone] [facility] , [address] [place] [address], [id number], [place] tel:[phone] [place] [facility] Open angle with borderline findings, high risk, bilateral Jul- 3 Zehra Greenfield. [address] [place], [address], [place]. tel: [phone] [facility] , [address] [place] [address], [id number], [place] tel:[phone] [place] [facility] Open angle with borderline findings, low risk, bilateralDry eye syndrome of bilateral lacrimal glandsAge-related nuclear cataract, bilateralHypermetro rom, bilateral 3 Zehra Greenfield. [address], [place], [address], [place]. 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 The tear glands of the eye are producing a low volume or low quality of tear. Impression/Plan Related to Patie nt has had cataract surgery. Impression/Plan Related to Patie nt has had cataract surgery. Intraocular lens in good position. Patient is doing well post operatively. Pt instructed to start/continue the prescribed drop regime. Post operative instructions and follow up recommendations were discussed with the phani Impression/Plan Related to Patie nt has had cataract surgery. Impression/Plan Related to Patie nt has had cataract surgery W/ GREG 12/27/2023 Impression/Plan Related to Catar act Impression/Plan Related to Astig matism Impression/Plan Related to Astig matism Impression/Plan Related to Catar act Impression/Plan Related to Astig matism Impression/Plan Related to Catar act Impression/Plan Related to Patie nt has had cataract surgery. Impression/Plan Related to Patie nt has had cataract surgery. Impression/Plan Related to Irreg ular astigmatism Impression/Plan Related to Catar act Impression/Plan Related to Irreg ular astigmatism Impression/Plan Related to Catar act Impression/Plan Related to [facility] revealed cataract. Impression/Plan Related to Refra ctive testing reveals hyperopia (farsightedness). Impression/Plan Related to Catar act Impression/Plan Related to s/p m yopic RK OU 1983 Impression/Plan Related to Irreg ular Astigmatism Impression/Plan Related to [facility] revealed the [...] was discussed with amina Impression/Plan Related to Astig matism Impression/Plan Related to Catar act Impression/Plan Related to Catar act Impression/Plan Related to [facility] revealed the [...] deficiencies. Impression/Plan Related to [facility] revealed cataract. Impression/Plan Related to [facility] revealed the patient is at risk for glaucoma based on several risk factors. 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 Impression/Plan Related to [facility] revealed cataract. Impression/Plan Related to [facility] revealed the patient is at risk for glaucoma based on several risk factors. Impression/Plan Related to [facility] revealed the patient is at risk for glaucoma based on several risk factors. [facility]ed[facility] 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 Impression/Plan Related to [facility] revealed the patient is at risk for glaucoma based on several risk factors. Impression/Plan Related to [facility] revealed cataract. Assessments Type Assessment Date No Information Patient Care Teams Name Effective Dates (start - stop) Status Members No Information
--- OUTSIDE RECORDS SUMMARY | 2025-06-28 13:31 | XMS_ITS | Clinical Summary ---
Author Organization [facility] Address [address] [facility] [place] [address] Care Team Providers Care Outsole Molder Name Role Phone Provider, Abstract Primary Care Provider Unavail able Allergies Active Allergy Reactions Criticality Noted Date Comments Iodine Itching Low 05/04/2019 Medications VITAMIN D2 50,000 unit capsule Take 1 [...] drink = 0.6 oz pur e alcohol) Comments No Sex and Gender Information Value Date Recorded Sex Assigned at Not on file Legal Sex Female 10:16 AM CDT Gender Identity Not on file Sexual Orientation Not on file Last Filed Vital Signs Vital Sign Reading Time Taken Comments Blood Pressure 118/76 05/04/2019 9:26 AM CDT Pulse 74 05/04/2019 9:26 AM CDT Temperature 36.8 C (98.3 F) 05/04/2019 9:26 AM CDT Respiratory Rate 18 03/30/2019 10:1 8 AM CDT Oxygen Saturation 98% 05/04/2019 9:26 AM CDT Inhaled Oxygen Concentration - - Weight 46.2 kg (101 lb 14.4 oz) 05/04/2019 9:26 AM CDT Height 152.4 cm (5') 05/04/2019 9:26 AM CDT Body Mass Index 19.9 05/04/2019 9:26 AM CDT Plan of Treatment Health Maintenance Due Date Last Done Comments DTAP/TDAP/TD VACCINES (1 - Tdap) 1978 PNEUMOCOCCAL VACCINE 50+ YEARS (1 of 2 - PCV) 02/18/19 78 BREAST CANCER SCREENING 1999 COLORECTAL SCREENING 02/19/2004 Colorectal Cancer Screening 02/19/2004 FIT-DNA Q 3 years 02/19/2004 FIT/FOBT Q 1 year 02/19/2004 Flex Sig/CT Colonography Q 5 years 02/19/2004 ZOSTER VACCINE (1 of 2) 2009 OSTEOPOROSIS SCREENING 02/19/2024 INFLUENZA VACCINE (#1) 2025 RSV VACCINE (60+ or ) (1 - 1-dose 75+ series) 2034 Insurance Care Teams Outsole Molder Relationship Specialty Start Date End Date Provider, Abstract NO ADDRESS ON FILE PCP - General 02/27/19
--- OUTSIDE RECORDS SUMMARY | 2025-06-28 13:31 | XMS_ITS | Clinical Summary ---
Author Organization [email or web address] Address [address] [place] [address] Care Team Providers Care Gripper Attacher Name Role Phone Sultana Sullivan MD Primary Care Provider [phone] Source Comments [email or web address],non-owned Affiliates and Associated Physician Practices is amultiple site organization consisting of ambulatory clinics and hospital sitesin [place], [place], [place]. This disclosure is being madepursuant to the Care Everywhere program and may not contain all information available regarding this patient. Last updated [email or web address] Allergies No known active allergies Medications * Be aware that medications may not be up to date on this document. Alwaysverify current medications with the patient. naproxen (Naprosyn) 500 MG tabletIndication s:Rheumatoid arthritis, involving unspecified site, unspecified whether rheumatoid [...] Date Recorded Patient Health Questionnaire-2 Score 0 03/13/2025 Comments No Sex and Gender Information Value Date Recorded Sex Assigned at Not on file Legal Sex Female 2:05 PM CDT Gender Identity Not on file Sexual Orientation Not on file Last Filed Vital Signs Vital Sign Reading Time Taken Comments Blood Pressure 124/84 03/13/2025 10:57 AM CDT Pulse 88 03/13/2025 10:57 AM CDT Temperature 36.4 C (97.5 F) 03/13/2025 10:57 AM CDT Respiratory Rate 18 02/15/2025 9:44 AM CDT Oxygen Saturation 97% 03/13/2025 10: 57 AM CDT Inhaled Oxygen Concentration - - Weight 62.1 kg (136 lb 12.8 oz) 025 10:57 AM CDT Height 152.4 cm (5') 03/13/2025 10:57 AM CDT Body Mass Index 26.72 03/13/2025 10:57 AM CDT Plan of Treatment Upcoming Encounters Date Type Department Care Team (Late st Contact Info) Description 08/02/2025 9:00 AM CDT Appointment [facility] [address] [place] [id number] Sultana Sullivan MD [address] [place] [address] 08/07/2025 11:30 AM CDT Office Visit [facility] - Rheumatology [address] [place] [address], [place] [address] Antonio Bowles MD [address] [place] [address] [place] [address] Health Maintenance Due Date Last Done Comments BONE DENSITY TESTING 1959 COLOGUARD (AGES 45-75) - COLON CA SCREENING 1959 COLON MONITORING 1959 COLONOSCOPY - COLON CA SCREENING 1959 CT COLONOGRAPHY - COLON CA SCREENING 1959 Colorectal Cancer Screening 1959 FIT - COLON CA SCREENING 1959 FLEX SIG - COLON CA SCREENING 1959 LIPID TESTING 1959 MAMMOGRAM 1959 COVID-19 VACCINE (#1) 02/19/1964 DTAP/TDAP/TD VACCINES (1 - Tdap) 1978 PNEUMOCOCCAL VACCINE 50+ (1 of 2 - PCV) 1978 ZOSTER VACCINE (1 of 2) 1978 Respiratory Syncytial Virus (RSV) Vaccine Pt: or over 60 yrs (1 - Risk 60-74 years 1-dose series) 2019 MEDICARE AWV CALENDAR YEAR 2024 INFLUENZA VACCINE (#1) 2025 SCREENING FOR DIABETES 03/13/2028 , 07/30/2024, 06/20/2024, Additional history exists DEPRESSION SCREENING Completed 03/13/2025, 01/18/2024, 11/10/2022, Additional history exists HEPATITIS C SCREENING Completed 03/13/2025 , 06/17/2023, 11/10/2022, Additional history exists HEPATITIS B VACCINE Aged Out No longe r eligible based on patient's age to complete this topic HIB VACCINE Aged Out No longer eligi ble based on patient's age to complete this topic HPV VACCINE Aged Out No longer eligi ble based on patient's age to complete this topic MENINGOCOCCAL (Group B) VACCINE SHARED DECISION-MAKING Aged Out No longer eligible based on patient's age to complete this topic MENINGOCOCCAL GROUPS A/C/Y/W VACCINE Aged Out No longer eligible based on patient's age to complete this topic Procedures Procedure Name Priority Date/Time Associated Diagnosis Comments COMPREHENSIVE METABOLIC PANEL Routine 03/13/2025 12:09 PM CDT Rheumatoid arthritis, involving unspecified site, unspecified whether rheumatoid factor present (HCC) Therapeutic drug monitoring HEPATITIS C ANTIBODY Routine 03/13/2025 12:09 PM CDT Rheumatoid arthritis, involving unspecified site, unspecified whether rheumatoid factor present (HCC) Therapeutic drug monitoring from Last 3 Months or Most Recently Relevant to Health Maintenance Results * (ABNORMAL) COMPREHENSIVE METABOLIC PANEL (03/13/2025 12:09 PM CDT) BUN 15 7 - 26 mg/dL 03/13/2025 1:32 PM CDT [facility] Creatinine 0.74 0.56 - 0.96 mg/dL 03/13/2025 1:32 PM CDT [facility] Sodium 139 136 - 145 mmol/L 03/13/2025 1:32 PM [facility] Potassium 4.7(H) 3.5 - 4.5 mmol/L 03/13/2025 1:32 PM [facility] Chloride 108(H) 98 - 107 mmol/L 03/13/2025 1:32 PM [facility] CO2 25 22 - 29 mmol/L 03/13/2025 1:32 PM [facility] Glucose 94 70 - 99 mg/dL 03/13/2025 1:32 PM [facility] Calcium 9.5 8.4 - 10.2 mg/dL 03/13/2025 1:32 PM [facility] Protein Total 7.7 6.0 - 8.3 g/dL 03/13/2025 1:32 PM [facility] Albumin 4.2 3.4 - 5.0 g/dL 03/13/2025 1:32 PM [facility] Bilirubin Total 0.4 0.2 - 1.2 mg/dL 03/13/2025 1:32 PM [facility] Alkaline Phosphatase 80 40 - 150 U/L 03/13/2025 1:32 PM [facility] ALT 17 5 - 55 U/L 03/13/2025 1:32 PM [facility] AST 23 5 - 34 U/L 03/13/2025 1:32 PM [facility] Anion Gap 6 6 - 16 03/13/2025 1:32 PM [facility] BUN/Creatinine Ratio 20 7 - 23 03/13/2025 1:32 PM [facility] Osmolality Calculated 289 275 - 295 mOsm/kg 03/13/2025 1:32 PM [facility] Albumin/Globulin Ratio 1.2 1.1 - 2.3 03/13/2025 1:32 PM [facility] eGFR by CKD-EPI 89(L) >=90 mL/min/1.7 3 m2 03/13/2025 1:32 PM [facility] Blood BLOOD SPECIMEN / Unknown Lab Venipuncture / Unknown 03/13/2025 12:09 PM T 03/13/2025 12:34 PM CDT Catherine Hoffman MD LAB - CHEMISTRY ORDERA BLES Final Result [address] [address], [place] [phone] * HEPATITIS C ANTIBODY (03/13/2025 12:09 PM CDT) Hepatitis C Antibody Non-react sergio Non-reac tive 03/13/2025 1:35 PM CDT [facility] Comment:Hepatitis C Antibody screen indicates no serologic evidence of past or current infection with Hepatitis C Virus. Patients with unexplained liver disease who are immunocompromised or suspected of having acute Hepatitis C infection may benefit from Nucleic Acid Test (HIPOLITO) for Hepatitis C Viral RNA to confirm Hepatitis C status. Blood BLOOD SPECIMEN / Unknown Lab Venipuncture / Unknown 03/13/2025 12:09 PM CDT 03/13/2025 12:32 PM CDT Catherine Hoffman MD LAB - CHEMISTRY ORDERA BLES Final Result [address] [address], [facility] [phone] from Last 3 Months or Most Recently Relevant to Health [place] [address] [facility] MANAGED MEDICARE ADV Care Teams Gripper Attacher Relationship Specialty Start Date End Date Sultana Sullivan MD [address] [place] [id number] PCP - General 11/24/22
[2025-06-28 13:45] VITALS: BP 137/83; PULSE 83; RESP 18; TEMP 36.4; O2SAT 96
--- NOTE | 2025-06-28 13:51 | ED.URI ---
HPI - URI/Sore Throat General Chief Complaint: Upper Respiratory Infection Stated Complaint: sinus infection Time Seen by Provider: 06/28/25 13:51 Source: patient, RN notes reviewed and old records reviewed Mode of arrival: ambulatory Limitations: no limitations History of Present Illness HPI Narrative: 65-year-old female who presents to [facility] with complaints of congestion and sinus pressure, runny nose, headache which started yesterday. Patient reports that she has been taking airborne and Sudafed for her symptoms and has been taking Tylenol for her headache. Patient reports fever up to 101F this morning and it decreased with Tylenol. Patient does have history of RA and is immunocompromised.Patient reports no cough or any body aches declined COVID testing. Patient denies any sore throat or any nausea, vomiting, or diarrhea. MD elicited complaint: fever, rhinorrhea, nasal congestion and sinus pain Pertinent past history: sinusitis and immunosuppression Onset (ago): day(s) (day 2) Consistency: progressively worsening Pain scale (0-10): 5 Able to tolerate fluids by mouth: Yes Treatments prior to arrival: acetaminophen and other (Airborne, Sudafed) Related Data Home Medications ?Medication ?Instructions ?Recorded ?Confirmed ?Last Taken ?Type naproxen 500 mg tablet 500 mg PO BID 02/17/23 06/28/25 Unknown History Allergies Allergy/AdvReac Type Severity Reaction Status Date / Time No Known Allergies Allergy Verified 06/28/25 13:30 Review of Systems Review of Systems: CONSTITUTIONAL: Reports malaise, chills, sweats, or fever. EYES: Denies visual changes, redness, or discharge. ENT: Reports rhinorrhea, congestion, sinus pain,no otalgia and no sore throat. CARDIOVASCULAR: Denies chest pain, palpitations, or edema. RESPIRATORY: Reports no cough.? Denies dyspnea. GASTROINTESTINAL: Denies abdominal pain, nausea, vomiting, diarrhea SKIN: Denies rash or itching. MUSCULOSKELETAL: Denies myalgia. NEUROLOGIC: Reports headache. All systems reviewed & are unremarkable except as noted in HPI and below PMFSH Past Medical History Medical History Kidney stones Rheumatoid arthritis Surgical History Surgical History History of tonsillectomy H/O tubal ligation Social History Social History Smoking status: Former smoker Additional smoking assessment comments: quit 3 years ago Substance use: never Living arrangements: with family Gender identity (if verbalized by the patient): Female Comments At time of signature, agree with nursing past medical, surgical, social and family history. There is no relevant family history pertinent to the presenting complaint Exam Narrative: GENERAL: Well-appearing, well-nourished, and in no acute distress. HEAD: Normocephalic EYES: PERRLA, conjunctivae clear ENT: Nares clear, turbinates edematous and erythematous, clear discharge sinus pressure and headache, Mucous membranes moist. TM pearly wang with dull light reflex bilaterally; no tragal tenderness. Oropharynx erythematous without lesions. Tonsils not present and throat without exudate, no drooling, no hoarseness, no trismus, uvula midline.post nasal drainage. NECK: Supple. No lymphadenopathy CHEST: Clear to auscultation, breath sounds equal. No wheezing, rhonchi, rales, or stridor. No respiratory distress, speaks in full sentences.no cough noted SAO2 96% on room air HEART: Regular rate and rhythm. No murmur heard. SKIN: Warm, dry, no rash. NEURO: Alert and oriented x3. PSYCH: Normal mood and affect Course Course Emergency Course: Patient is aware of diagnosis, understands and agrees to treatment plan.? Anticipatory guidance given.? Patient agrees to follow-up as directed and is aware of reasons to seek care at the emergency department. Portions of this record may have been created with voice recognition software Level of Care: Express Care Visit Vital Signs Vital signs: Vital Signs Temperature 36.4 C L 06/28/25 13:45 Pulse Rate 83 06/28/25 13:45 Respiratory Rate 18 06/28/25 13:45 Blood Pressure 137/83 06/28/25 13:45 Pulse Oximetry 96 06/28/25 13:45 Oxygen Delivery Room Air 06/28/25 13:45 Temperature 36.4 C L 06/28/25 13:45 Pulse Rate 83 06/28/25 13:45 Respiratory Rate 18 06/28/25 13:45 Blood Pressure 137/83 06/28/25 13:45 Pulse Oximetry 96 06/28/25 13:45 Oxygen Delivery Room Air 06/28/25 13:45 Reviewed MDM - URI/Sore Throat MDM Narrative Medical decision making narrative: Differential diagnosis considered: Abl virus, strep pharyngitis, allergic rhinitis, upper respiratory tract infection, sinusitis, rhinosinusitis, nasopharyngitis. viral pharyngitis, otitis media, otitis externa, pneumonia, bronchitis, viral cough syndrome, viral syndrome, and influenza.? Exam findings show no acute concerns or changes; patient is non-toxic appearing and is in no distress.? Patient is appropriate for outpatient treatment and follow-up. Differential Diagnosis Differential diagnosis: Likely upper respiratory infection, sinusitis and viral infection Medical Records Attestation: I reviewed the patient's medical records. Lab Data Attestation: I reviewed the patient's lab results. Critical Care Time Critical Care Time Critical Care Time: No Discharge Plan Discharge Clinical Impression: Sinusitis Qualifiers: Sinusitis location: pansinusitis Chronicity: acute Recurrence: not specified as recurrent Qualified Code(s): J01.40 - Acute pansinusitis, unspecified Patient Disposition: Home Condition: Stable Instructions: Antibiotic Form, Sinusitis (ED) Additional Instructions: Increase fluids especially juices and water Sfhk-[id number] cough and cold medicine of your choice for your symptoms Continue your Zyrtec, Claritin or Kimmy daily include plain Sudafed Tylenol or ibuprofen for any fever pain heat to the face 20-30 minutes 4-6 times a day for pain Salt water gargles, throat lozenges or throat sprays as desired Antibiotic as directed--finished the medication If your symptoms persist, change or worsen significantly before you can contact your personal physician then please, without delay, go to the emergency department for further evaluation. Follow-up with PCP in 7-10 days or sooner if needed Follow up with PCP soon in regards to your blood pressure which is elevated above threshold for referral. Blood pressure above 120/80 may indicate pre-hypertension.137/83 Patient Language: Indonesian Prescriptions: New amoxicillin-pot clavulanate 875-125 mg tablet 1 tablet PO Q12H Qty: 20 0RF No Action naproxen 500 mg tablet 500 mg PO BID Follow-up/Referrals: Zoila,Sultana Hall MD [Primary Care Provider] Time of Disposition: 14:09 Quality Mell Coma Scale Eyes: Open Verbal: Oriented and Alert Motor: Follows Commands Mell Coma Total Score: 15
== END 2025-06-28 14:12 | disposition home or self-care (01) ==
PROVIDERS: Emergency Provider Registered Nurse; PCP Family Medicine
DX: J01.40 Acute pansinusitis, unspecified (principal); M06.9 Rheumatoid arthritis, unspecified; Z87.891 Personal history of nicotine dependence
CPT/HCPCS: 99213; G0463